=== PATIENT | female | born 1995 | race Caucasian/White ===

== ENCOUNTER → 2020-05-26 11:34 | Outpatient (POV) | payer BC, SELFPAY | PROVIDERS: PCP Family Medicine; Visit Provider Otolaryngology | DX: Z00.00 Encounter for general adult medical examination without abnormal findings (principal) ==

== ENCOUNTER 2020-06-28 19:43 | Emergency (ER) | payer BC, MEDICAID, SELFPAY ==
--- NOTE | 2020-06-28 19:50 | ECG_ITS ---
APPROVED REPORT Exam: Resting ECG HR:105 bpm ECG Measurements Heart Rate 105 AXES ND 122 P 52 QRSd 90 QRS 30 QT 344 T 24 QTc 454 <Conclusion> Sinus tachycardia Otherwise normal ECG Electronically signed by : Sixto Young, 06/29/2020 06:13:35
[2020-06-28 19:57] VITALS: BP 134/86; PULSE 106; RESP 16; TEMP 37; O2SAT 100; BMI 35.6
[2020-06-28 20:00] VITALS: BP 132/91; PULSE 110; RESP 18; O2SAT 100
--- NOTE | 2020-06-28 20:12 | XR_ITS ---
PROCEDURE: XR CHEST 2V CLINICAL HISTORY: SOA Shortness of air postop COMPARISON: CT CT ANGIO CHEST from 06/28/2020 FINDINGS: The cardiomediastinal silhouette and pulmonary vascularity are within normal limits. No lobar consolidation or collapse. No effusions. There is a 14 mm nodule in the superior segment of the right lower lobe.. No acute bony abnormalities. IMPRESSION: 14 mm nodule superior segment lower lobe which contains a small focus of calcification on the previous CT scan consistent with a granuloma. No acute finding Dictated by: Ulises Mclaughlin MD 06/29/2020 05:31 Ulises Mclaughlin MD in [place] 06/29/2020 05:31
--- NOTE | 2020-06-28 20:16 | CT_ITS ---
PROCEDURE: CT ANGIO CHEST CLINCIAL INDICATION: Post op SOA Postop shortness of air COMPARISON: No exams were available for comparison TECHNIQUE: IV Contrast: 70ML OPTIRAY 350 Axial images obtained with sagittal and coronal reformats. All CT scans at the facility use one or more dose reduction, viz: automated exposure control, ma/kV adjustment per patient size (including targeted exams where dose is matched to indication, i.e. head), or iterative reconstruction technique. FINDINGS: HEART AND MEDIASTINAL STRUCTURES: No evidence of pulmonary embolus aortic aneurysm or dissection. No mediastinal or hilar mass or adenopathy. LUNGS AND PLEURAL SPACES: There is a cluster nodular lesions in the superior segment of the right lower lobe. These measure to 2 x 0.9 cm. The large nodule does contain some location. There are some small peripheral satellite nodules. No lobar consolidation or collapse. There is a 3 mm noncalcified nodule in the left lower lobe laterally image 72 series 3 a 2 mm noncalcified nodules present in the left lower lobe laterally image 60 series 3 BONY STRUCTURES: No acute bony abnormalities apparent. UPPER ABDOMEN: Fatty liver ADDITIONAL FINDINGS: No other significant abnormalities. IMPRESSION: 1. No acute finding. No evidence of pulmonary embolus. 2. Multiple pulmonary nodular opacities which may be secondary to old granulomatous disease. At least 1 nodule does contain some calcification. Other smaller noncalcified nodules are also present and could be due to granulomas. Follow-up may confirm stability Dictated by: Ulises Mclaughlin MD 06/29/2020 06:26 Ulises Mclaughlin MD in [facility] 06/29/2020 06:26
[2020-06-28 20:24] LABS: Microscopic, Urine URINE MICROSCOPIC (MICROSCOPIC)
[2020-06-28 20:32] LABS: Chloride 105 mmol/L (98-107); Potassium 4.1 mmoL/L (3.5-5.1); Sodium 137 mmol/L (136-145)
[2020-06-28 20:33] LABS: Basophils % 0.2 % (0.1-2.0); Eosinophils # 0.1 K/mm3 (0.0-0.4); Eosinophils % 1.2 % (0.1-12.0); Hematocrit 36.4 % (37.0-47.0); Hemoglobin 12.5 g/dL (12.2-16.2); Lymphocytes # 2.3 K/mm3 (0.7-4.5); Lymphocytes % 21.7 % (10-50); Mean Corpuscular HGB Conc 34.4 g/dL (31.8-35.4); Mean Corpuscular Hemoglobin 27.2 pg (27.0-31.2); Mean Corpuscular Volume 79.2 fl (81-99); Mean Platelet Volume 7.2 fl (7.4-10.4); Monocytes # 0.5 K/mm3 (0.1-1.0); Monocytes % 4.5 % (1.7-9.3); Neutrophils # 7.6 K/mm3 (1.8-7.8); Neutrophils % 72.4 % (37.0-80.0); Platelet Count 214 K/mm3 (142-424); Red Cell Distribution Width 14.6 % (11.5-17.5); White Blood Count 10.5 K/mm3 (4.8-10.8)
[2020-06-28 20:35] LABS: Alanine Aminotransferase 25 U/L (12-78); Albumin/Globulin Ratio 1.3 (1.1-1.8); Alkaline Phosphatase 82 U/L (38-126); Anion Gap 11.1 mEq/L (5-15); Appearance,Urine CLEAR (Clear); Aspartate Amino Transferase 33 U/L (14-36); Bilirubin,Total 0.4 mg/dl (0.2-1.3); Bilirubin,Urine Negative (Negative); Blood Urea Nitrogen 7 mg/dl (7-17); Blood, Urine Negative (Negative); Carbon Dioxide 25 mmol/L (22.0-30.0); Color,Urine YELLOW (Yellow); Creatinine Clearance Estimated 204 mL/min (50-200); Estimated Glomerular Filt Rate 101 ml/min (>60); GFR (African American) 122 ML/MIN (>60); Globulin 3.1 g/dL (1.3-3.2); Glucose,Urine (UA) Negative (Negative); Ketones,Urine Negative (Negative); Leukocyte Esterase,Urine TRACE (Negative); Nitrate,Urine Negative (Negative); Protein,Urine Negative (Negative); Total Protein,Serum 7.1 g/dl (6.3-8.2)
[2020-06-28 20:36] LABS: Glucose 109 mg/dl (74-100)
--- NOTE | 2020-06-28 20:36 | HMH.EDSOB ---
ED Disposition Clinical Impression: Acute dyspnea Disposition: Home, Self-Care Condition on Discharge: Good Instructions: DI for Shortness of Breath Additional Instructions: call pcp for follow up Referrals: Nadia Goodson [Primary Care Provider] - - Critical Care Critical Care Time: No Attestation: On 06/28/20, the high probability of a clinically significant, sudden or life threatening deterioration of the following system(s) required my full and direct attention, intervention and personal management. The time I documented below is in addition to time spent performing reported procedures but includes the following listed in this critical care notation. Medical Decision Making - Medical Records Medical records reviewed: Yes: I reviewed the patient's medical records. - Trevor Inquiry Pt receiving controlled substance: No Vital Signs: 06/28/20 19:57 06/28/20 20:00 Temperature 98.6 F Temperature Source Oral Pulse Rate [Right] 106 H 110 H Respiratory Rate 16 18 Blood Pressure [Right Arm] 134/86 132/91 H Blood Pressure Mean [Right Arm] 102 104 Blood Pressure Source [Right Arm] Automatic Cuff Automatic Cuff Blood Pressure Position [Right Arm] Sitting Supine 02 Sat by Pulse Oximetry 100 100 Oxygen Delivery Method Room Air Room Air - Lab Data Lab results reviewed: Yes: I reviewed the patient's lab results. Lab Results 06/28/20 20:15: Urine Color Yellow, Urine Appearance Clear, Urine pH 7.0, Ur Specific [place] 1.010, Urine Protein Negative, Urine Glucose (UA) Negative, Urine Ketones Negative, Urine Blood Negative, Urine Nitrate Negative, Urine Bilirubin Negative, Urine Urobilinogen 1.0, Ur Leukocyte Esterase Trace, Urine WBC Occasional, Ur Squamous Epith Cells Occasional, Urine Bacteria Trace 06/28/20 20:15: WBC 10.5, RBC 4.60, Hgb 12.5, Hct 36.4 L, MCV 79.2 L, MCH 27.2, MCHC 34.4, RDW 14.6, Plt Count 214, MPV 7.2 L, Neut % (Auto) 72.4, Lymph % (Auto) 21.7, [place] % (Auto) 4.5, Eos % (Auto) 1.2, Baso % (Auto) 0.2, Neut # (Auto) 7.6, Lymph # (Auto) 2.3, [place] # (Auto) 0.5, Eos # (Auto) 0.1, Baso # (Auto) 0.0 06/28/20 20:15: Sodium 137, Potassium 4.1, Chloride 105, Carbon Dioxide 25, Anion Gap 11.1, BUN 7, Creatinine 0.70, Estimated Creat Clear 204, Estimated GFR 101, Est GFR ( Amer) 122, Glucose 109 H, Calcium 9.0, Total Bilirubin 0.4, AST 33, ALT 25, Alkaline Phosphatase 82, Total Protein 7.1, Albumin 4.0, Globulin 3.1, Albumin/Globulin Ratio 1.3 Result diagrams: 06/28/20 20:15 06/28/20 20:15 Orders (Tests/Meds): ED MEDICATIONS Generic Name Dose Route Start Last Admin Trade Name Freq PRN Reason Stop Dose Admin Sodium Chloride 1,000 mls @ 999 mls/hr 06/28/20 20:30 06/28/20 20:50 Sod Chlor 0.9% 1000ml Bag IV 06/28/20 21:30 999 mls/hr .Q1H1M BRANDON Administration Discontinued Medications Generic Name Dose Route Start Last Admin Trade Name Freq PRN Reason Stop Dose Admin Ioversol 75 ml 06/28/20 22:01 06/28/20 22:02 Rad-Optiray 350 100ml Vial IV 06/28/20 22:02 75 ml ONCE ONE Administration Protocol Methylprednisolone Sodium Succinate 125 mg 06/28/20 20:17 06/28/20 20:50 Solu-Medrol 125mg/2ml Vial IV 06/28/20 20:18 125 mg ONCE ONE Administration Sodium Chloride 10 ml 06/28/20 22:01 06/28/20 22:02 Rad-Saline Flush 10ml Syringe IV 06/28/20 22:02 10 ml ONCE ONE Administration Sodium Chloride 50 ml 06/28/20 22:02 Rad-Ns 50ml Vial IV 06/28/20 22:03 ONCE ONE Sodium Chloride 40 ml 06/28/20 22:04 06/28/20 22:04 Rad-Ns 50ml Vial IV 06/28/20 22:05 40 ml ONCE ONE Administration ORDERS Category Date Time Status CT Chest w/PE protocol [CT angio chest] Stat Cat Scan 06/28/20 20:16 Taken Chest XR 2 view (NOT portable) [XR chest 2V] Stat Exams 06/28/20 20:12 Taken - Radiology Data #1 Image(s): Chest Image Reviewed: Yes I reviewed the patient's radiology image Preliminary Findings: Normal/NAD - CT Data CT Scan: Ch
[2020-06-28 20:51] LABS: Bacteria,Urine Trace /lpf; Squamous Epithelial Cell,Urine Occasional #/hpf (0-5); WBC,Urine Occasional #/hpf (0-3)
[2020-06-28 22:28] VITALS: BP 129/68; PULSE 90; RESP 16; TEMP 37; O2SAT 100
== END 2020-06-28 22:32 | disposition home or self-care (01) ==
PROVIDERS: Emergency Medicine; Emergency Provider Emergency Medicine; PCP Family Medicine
DX: R06.09 Other forms of dyspnea (principal); R10.30 Lower abdominal pain, unspecified; E11.9 Type 2 diabetes mellitus without complications; Z79.84 Long term (current) use of oral hypoglycemic drugs; Z88.1 Allergy status to other antibiotic agents
CPT/HCPCS: 71046; 71275; 80053; 81001; 85025; 93005; 96365; 96375; 99283; Q9967

== ENCOUNTER → 2021-07-30 15:24 | Outpatient (CLI) | payer BC, SELFPAY ==
--- NOTE | 2021-07-30 15:24 | US_ITS ---
PROCEDURE: US TRANSVAGINAL CLINICAL INDICATION: DUB COMPARISON: No exams were available for comparison FINDINGS: UTERUS: 7cm x 5cmx 4cm with a combined endometrial thickness of 11.3mm. No uterine mass demonstrated LEFT OVARY: [id number] with a volume of 11.4ml. RIGHT OVARY: [id number] with a volume of 26ml. The ovaries have a polycystic appearance with numerous small follicles involving both ovaries. No cul-de-sac fluid evident. IMPRESSION: Endometrial thickness is upper limits of normal. Poly cystic appearance of the ovaries. Dictated by: Ulises Mclaughlin MD 07/30/2021 16:23 Ulises Mclaughlin MD in OV 07/30/2021 16:23
== END ==
PROVIDERS: PCP Family Medicine; Visit Provider Obstetrics & Gynecology
DX: N93.8 Other specified abnormal uterine and vaginal bleeding (principal)
CPT/HCPCS: 76830

== ENCOUNTER 2021-09-09 19:49 | Emergency (ER) | payer BC, SELFPAY ==
[2021-09-09 20:15] VITALS: BP 143/101; PULSE 124; RESP 19; TEMP 36.4; O2SAT 100; BMI 36.2
--- NOTE | 2021-09-09 20:41 | HMH.EDNVD ---
ED Disposition Clinical Impression: Gastroenteritis Disposition: Home, Self-Care Condition on Discharge: Good Instructions: DI for Acute Abdominal Pain Additional Instructions: call pcp in am Referrals: Nadia Goodson [Primary Care Provider] - - Critical Care Critical Care Time: No Attestation: On 09/09/21, the high probability of a clinically significant, sudden or life threatening deterioration of the following system(s) required my full and direct attention, intervention and personal management. The time I documented below is in addition to time spent performing reported procedures but includes the following listed in this critical care notation. Medical Decision Making - Medical Records Medical records reviewed: Yes: I reviewed the patient's medical records. - Trevor Inquiry Pt receiving controlled substance: No Vital Signs: 09/09/21 20:15 Temperature 97.6 F Temperature Source Oral Pulse Rate [Right] 124 H Respiratory Rate 19 Blood Pressure [Right Arm] 143/101 H Blood Pressure Mean [Right Arm] 115 Blood Pressure Source [Right Arm] Automatic Cuff 02 Sat by Pulse Oximetry 100 Oxygen Delivery Method Room Air - Lab Data Lab results reviewed: Yes: I reviewed the patient's lab results. Lab Results 09/09/21 20:30: Stl Aeromonas (PCR) Not detected, Stl C. cayetanensis PCR Not detected, Stool Rotavirus (PCR) Not detected, Stl Adenov F 40/41 PCR Not detected, Stool Astrovirus (PCR) Not detected, Stool Campylobacter PCR Not detected, Stl C.difficile Tox PCR Not detected, Stool Cryptosporidium PCR Not detected, Stl E.coli Shiga Tox PCR Not detected, Stool E coli O157 PCR Not detected, Stl Enterotoxigenic E PCR Not detected, Stool EPEC (PCR) Not detected, Stool EAEC (PCR) Not detected, Stl E. histolytica PCR Not detected, Stool Giardia Lamblia PCR Not detected, Stool Salmonella PCR Not detected, Stool Sapovirus (PCR) Not detected, Stl P. shigelloides PCR Not detected, Stl Shigella/EIEC PCR Not detected, St Y.enterocolitica PCR Not detected, Stool Vibrio (PCR) Not detected, Stl Vibrio cholerae PCR Not detected, Stl Norovirus GI/GII PCR Not detected 09/09/21 20:45: WBC 12.7 H, RBC 5.52 H, Hgb 14.2, Hct 44.3, MCV 80.2 L, MCH 25.8 L, MCHC 32.1, RDW 13.6, Plt Count 413, MPV 7.6, Neut % (Auto) 80.2 H, Lymph % (Auto) 13.3, [place] % (Auto) 4.0, Eos % (Auto) 2.1, Baso % (Auto) 0.5, Neut # (Auto) 10.2 H, Lymph # (Auto) 1.7, [place] # (Auto) 0.5, Eos # (Auto) 0.3, Baso # (Auto) 0.1, ESR 7 09/09/21 20:45: Sodium 142, Potassium 3.9, Chloride 104, Carbon Dioxide 22, Anion Gap 19.9 H, BUN 9, Creatinine 0.80, Estimated Creat Clear 163, Estimated GFR 85, Est GFR ( Amer) 103, Glucose 100, Calcium 9.9, Total Bilirubin 0.7, AST 38 H, ALT 30, Alkaline Phosphatase 118, C-Reactive Protein 13.8 H, Total Protein 8.6 H, Albumin 5.1 H, Globulin 3.5 H, Albumin/Globulin Ratio 1.5, Amylase 101, Lipase 98, Procalcitonin 0.079, TSH 0.59, Thyroxine (T4) 15.5 H 09/09/21 20:51: Urine Color Red, Urine Appearance Cloudy, Urine pH 5.0, Ur Specific [place] >= 1.030, Urine Protein Negative, Urine Glucose (UA) Trace, Urine Ketones Trace, Urine Blood 3+, Urine Nitrate Negative, Urine Bilirubin Negative, Urine Urobilinogen 1.0, Ur Leukocyte Esterase Trace, Urine RBC 20-50, Urine WBC 5-10, Ur Squamous Epith Cells Occasional, Urine Bacteria 1+ 09/09/21 20:51: Urine HCG, Qual Negative Result diagrams: 09/09/21 20:45 09/09/21 20:45 Orders (Tests/Meds): ED MEDICATIONS Generic Name Dose Route Start Last Admin Trade Name Freq PRN Reason Stop Dose Admin Sodium Chloride 1,000 mls @ 999 mls/hr 09/09/21 20:45 09/09/21 20:54 Sod Chlor 0.9% 1000ml Bag IV 09/09/21 21:45 999 mls/hr .Q1H1M BRANDON Administration Sodium Chloride 1,000 mls @ 999 mls/hr 09/09/21 22:00 09/09/21 21:56 Sod Chlor 0.9% 1000ml Bag IV 09/09/21 23:00 999 mls/hr .Q1H1M BRANDON Administration Sodium Chloride 8 ml 09/09/21 20:44 Sodium Chloride 0.9% 10ml Vial IV 10/09/21 20:43
--- NOTE | 2021-09-09 20:43 | CT_ITS ---
PROCEDURE INFORMATION: Exam: CT Abdomen And Pelvis With Contrast Exam date and time: 09/09/2021 8:43 PM Age: 26 years old Clinical indication: Nausea and vomiting and other: Diarrhea; Abdominal pain; Localized; Upper; Prior surgery; Surgery date: 6+ months; Surgery type: Ovarian cyst removed, choleycystectomy, mirena iud device placed. ; Additional info: Upper abd pain with n/v/d TECHNIQUE: Imaging protocol: Computed tomography of the abdomen and pelvis with contrast. Radiation optimization: All CT scans at this facility use at least one of these dose optimization techniques: automated exposure control; mA and/or kV adjustment per patient size (includes targeted exams where dose is matched to clinical indication); or iterative reconstruction. Contrast material: ISOVUE; Contrast volume: 70 ml; Contrast route: IV; COMPARISON: US TRANSVAGINAL 07/30/2021 3:53 PM FINDINGS: Lungs: A nodule in the right lower lobe contains a calcification and is probably benign. Two 3 mm nodules are seen in the left base. Liver: A 10 mm hypodensity in the hepatic dome is most likely a cyst. Gallbladder and bile ducts: Normal. No calcified stones. No ductal dilation. Pancreas: Normal. No ductal dilation. Spleen: Normal. No splenomegaly. Adrenal glands: Normal. No mass. Kidneys and ureters: A few tiny renal hypodensities are too small to further characterize, but most likely cysts. Stomach and bowel: Fluid in the colon compatible with diarrhea. Appendix: No evidence of appendicitis. Intraperitoneal space: Unremarkable. No free air. No significant fluid collection. Vasculature: Unremarkable. No abdominal aortic aneurysm. Lymph nodes: Unremarkable. No enlarged lymph nodes. Urinary bladder: Unremarkable as visualized. Reproductive: IUD in good position. Bones/joints: Unremarkable. No acute fracture. Soft tissues: Unremarkable. IMPRESSION: Fluid in the colon compatible with diarrhea. No obstruction. COMMENTS: Consistent with the [place] [employer]'s Incidental Findings Committee white paper (J Am Anabella Radiol 2018): Any incidental renal lesion less than 1 cm or classified as too small to characterize, or any incidental cystic renal lesion characterized as simple-appearing, is likely benign. No follow-up imaging is recommended for these lesions per consensus recommendations based on imaging criteria.
[2021-09-09 20:54] LABS: Microscopic, Urine URINE MICROSCOPIC (MICROSCOPIC)
[2021-09-09 20:56] LABS: Appearance,Urine CLOUDY (Clear); Bilirubin,Urine Negative (Negative); Blood, Urine 3+ (Negative); Color,Urine RED (Yellow); Glucose,Urine (UA) TRACE (Negative); Ketones,Urine TRACE (Negative); Leukocyte Esterase,Urine TRACE (Negative); Nitrate,Urine Negative (Negative); Protein,Urine Negative (Negative); Specific Gravity, Urine >= 1.030 (1.005-1.030)
[2021-09-09 20:58] LABS: Urine Pregnancy, HCG Qual. Negative (Negative)
[2021-09-09 21:01] LABS: Bacteria,Urine 1+ /lpf; RBC,Urine 20-50 #/hpf (0-3); Squamous Epithelial Cell,Urine Occasional #/hpf (0-5)
[2021-09-09 21:08] LABS: Basophils # 0.1 K/mm3 (0-0.2); Basophils % 0.5 % (0.1-2.0); Eosinophils # 0.3 K/mm3 (0.0-0.4); Eosinophils % 2.1 % (0.1-12.0); Hematocrit 44.3 % (37.0-47.0); Hemoglobin 14.2 g/dL (12.2-16.2); Lymphocytes # 1.7 K/mm3 (0.7-4.5); Lymphocytes % 13.3 % (10-50); Mean Corpuscular HGB Conc 32.1 g/dL (31.8-35.4); Mean Corpuscular Hemoglobin 25.8 pg (27.0-31.2); Mean Corpuscular Volume 80.2 fl (81-99); Mean Platelet Volume 7.6 fl (7.4-10.4); Monocytes # 0.5 K/mm3 (0.1-1.0); Neutrophils # 10.2 K/mm3 (1.8-7.8); Neutrophils % 80.2 % (37.0-80.0); Platelet Count 413 K/mm3 (142-424); Red Blood Count 5.52 M/mm3 (4.20-5.40); Red Cell Distribution Width 13.6 % (11.5-17.5); White Blood Count 12.7 K/mm3 (4.8-10.8)
[2021-09-09 21:10] LABS: Adenovirus F 40/41, stool Not Detected (NotDetected); Astrovirus Not Detected (NotDetected); Campylobacter Not Detected (NotDetected); Clostridium Difficile A/B, PCR Not Detected (NotDetected); Cryptosporidium Not Detected (NotDetected); Cyclospora Cayetanesis Not Detected (NotDetected); Entamoeba histolytica Not Detected (NotDetected); Enteroaggregative E coli Not Detected (NotDetected); Enteropathogenic E coli Not Detected (NotDetected); Enterotoxigenic E coli Not Detected (NotDetected); Giardia lamblia Not Detected (NotDetected); Norovirus Not Detected (NotDetected); Plesimonas Shigalloides, PCR Not Detected (NotDetected); Rotavirus A Not Detected (NotDetected); Salmonella, PCR Not Detected (NotDetected); Sapovirus Not Detected (NotDetected); Shiga-like toxin E coli Not Detected (NotDetected); Shigella Enterovasive E coli Not Detected (NotDetected); Vibrio Cholerae Not Detected (NotDetected); Vibrio, PCR Not Detected (NotDetected); Yersinia Entercolitica, PCR Not Detected (NotDetected)
[2021-09-09 21:14] LABS: Alanine Aminotransferase 30 U/L (12-78); Albumin Level 5.1 g/dl (3.5-5.0); Albumin/Globulin Ratio 1.5 (1.1-1.8); Alkaline Phosphatase 118 U/L (38-126); Amylase 101 U/L (30-110); Anion Gap 19.9 mEq/L (5-15); Aspartate Amino Transferase 38 U/L (14-36); Bilirubin,Total 0.7 mg/dl (0.2-1.3); Blood Urea Nitrogen 9 mg/dl (7-17); Calcium 9.9 mg/dl (8.4-10.2); Carbon Dioxide 22 mmol/L (22.0-30.0); Chloride 104 mmol/L (98-107); Creatinine Clearance Estimated 163 mL/min (50-200); Estimated Glomerular Filt Rate 85 ml/min (>60); GFR (African American) 103 ML/MIN (>60); Globulin 3.5 g/dL (1.3-3.2); Glucose 100 mg/dl (74-100); Lipase 98 U/L (23-300); Potassium 3.9 mmoL/L (3.5-5.1); Sodium 142 mmol/L (136-145); Total Protein,Serum 8.6 g/dl (6.3-8.2)
--- NOTE | 2021-09-09 21:15 | PC.NURSE ---
Dr. Christine with pt
[2021-09-09 21:19] LABS: C-Reactive Protein 13.8 mg/L (0-4)
[2021-09-09 21:33] LABS: Procalcitonin 0.079 ng/mL (0.0-2.0); T4 (Thyroxine) 15.5 ug/dl (5.53-11.0)
[2021-09-09 21:45] LABS: Erythrocyte Sedimentation Rate 7 mm/hr (0-20)
[2021-09-09 21:47] LABS: Thyroid Stimulating Hormone 0.59 uIU/mL (0.465-4.68)
--- NOTE | 2021-09-09 21:56 | PC.NURSE ---
Dr. Christine s/w pt regarding lab work
[2021-09-09 23:17] VITALS: BP 134/78; PULSE 100; RESP 16; TEMP 36.4; O2SAT 99
== END 2021-09-09 23:18 | disposition home or self-care (01) ==
PROVIDERS: Emergency Provider Emergency Medicine; PCP Family Medicine
DX: K52.9 Noninfective gastroenteritis and colitis, unspecified (principal)
CPT/HCPCS: 74177; 80053; 81001; 81025; 82150; 83690; 84145; 84436; 84443; 85025; 85651; 86140; 87507; 96365; 96375; 99283; J2405; Q9967

== ENCOUNTER 2022-03-01 11:22 | Emergency (ER) | payer BC, SELFPAY ==
--- NOTE | 2022-03-01 11:31 | XR_ITS ---
FINAL REPORT CLINICAL HISTORY: PAIN around first two toes FINDINGS: 3 views of the right foot were obtained. There is an ossific protuberance from the medial aspect of the 1st distal phalanx that may represent a small exostosis. There is no acute fracture or dislocation. The joint spaces are intact. The soft tissues are unremarkable. IMPRESSION: No acute process. Reviewed, Interpreted and Dictated by Kole Flanagan MD Transcribed by John Ramirez Authenticated by Kole Flanagan MD on 03/01/2022 12:50:[address] [facility]
[2022-03-01 11:52] VITALS: BP 126/79; PULSE 83; RESP 19; TEMP 36.6; O2SAT 98; BMI 37.8
--- NOTE | 2022-03-01 12:20 | HMH.EDUTC ---
[facility] Disposition Clinical Impression: Foot sprain Qualifiers: Encounter type: initial encounter Laterality: right Qualified Code(s): S93.601A - Unspecified sprain of right foot, initial encounter Disposition: Home, Self-Care Condition on Discharge: Good Instructions: How To Perform RICE (Rest, Ice, Compress, Elevate), DI for Foot Sprain Additional Instructions: *weight bearing as tolerated *RICE, Rest the extremity, Ice 15-20 minutes 3-4 times daily, Compress- wear the erickson wrap as discussed as much as possible to help reduce swelling and pain, Elevate the extremity when at rest *Erickson wrap is for support and help control swelling, use it except in the shower. Be sure that is not to tight but not to loose either *Elevate when resting *Ibuprofen as prescribed on package every 6-8 hours as needed for pain an inflammation. If need something more can take Tylenol in between doses of Ibuprofen to help Immediately follow up with your family doctor for new or worsening of symptoms, or no noticeable improvement over the next 3-5 days Referrals: Nadia Goodson [Primary Care Provider] - As needed Time of Disposition: 12:26 Medical Decision Making - Trevor Inquiry Pt receiving controlled substance: No Trevor was queried for this patient: No Vital Signs: 03/01/22 11:52 Temperature 97.9 F Temperature Source Oral Pulse Rate [Left] 83 Respiratory Rate 19 Blood Pressure [Right Arm] 126/79 Blood Pressure Mean [Right Arm] 94 02 Sat by Pulse Oximetry 98 Orders (Tests/Meds): ORDERS Category Date Time Status XR foot RT min 3V Stat Exams 03/01/22 11:31 Taken - Radiology Data #1 Image(s): Foot/Toes Image Reviewed: Yes I reviewed the patient's radiology image Preliminary Findings: No Fracture Seen [facility] HPI - General Stated complaint: AO rt foot pain Time Seen by Provider: 03/01/22 12:20 Mode of Arrival: Ambulatory Source of Information: Patient Description of Symptoms (Recalled from Triage Doc. by RN): [place] the [place] and she went to catch someone who was falling from a seizure and person landed on her foot. she thinks it may be broken HEENT Symptoms (Recalled from RN notes): No Resp Symptoms (Recalled from RN notes): No Skin Symptoms (Recalled from RN notes): No MS Symptoms (Recalled from RN notes): Yes Functional Status (Recalled from RN notes): wnl - History of Present Illness Provider Complaint: Patient states that she was at the mall yesterday when someone went to fall having a seizure and she tried to catch them and her foot got tangled up States that she is having pain around the base of toes from her second toe over States that today she came in to get it checked to see if they may be broken - Related Data Home Medications Medication Instructions Recorded Confirmed Metformin HCl [Metformin HCl ER] 1,500 mg PO HS 06/28/20 09/09/21 levothyroxine 75 mcg tablet 75 mcg PO DAILY 07/27/21 09/09/21 liraglutide (weight loss) 3 mg/0.5 3 mg SQ DAILY 07/27/21 09/09/21 mL (18 mg/3 mL) subcut pen injector norgestrel-ethinyl estradioL 1 tab PO DIRECTED 09/09/21 09/09/21 [Cryselle-28 Tablet] Allergies Allergy/AdvReac Type Severity Reaction Status Date / Time amoxicillin Allergy Verified 03/01/22 11:56 hydrocodone Allergy Verified 03/01/22 11:56 - Worker's Comp Is this a Worker's Comp case?: No Is this an [facility] Worker's Comp?: No Is this a [facility] Worker's Comp?: No H History - Hepatitis A Screen Drug use history?: No High risk sexual behaviors?: No History of sexually transmitted infection?: No Currently employed?: No Childcare worker?: No Do you have indoor plumbing?: Yes Do you have electricity?: Yes Attestation statement:: This patient has been screened for Hepatitis A risk factors. I have reviewed the patient's past medical history: Yes Medical History: Denies:: Diabetes Mellitus Type 1, Diabetes Mellitus Type 2 Comment: PCOS. uterine fibroids Laterality Cases
[2022-03-01 12:31] VITALS: BP 126/79; PULSE 83; RESP 19; TEMP 36.6
== END 2022-03-01 12:39 | disposition home or self-care (01) ==
PROVIDERS: Emergency Provider Nurse Practitioner; PCP Family Medicine
DX: S93.601A Unspecified sprain of right foot, initial encounter (principal); N83.209 Unspecified ovarian cyst, unspecified side; Z79.84 Long term (current) use of oral hypoglycemic drugs; Z79.899 Other long term (current) drug therapy; Z88.0 Allergy status to penicillin; Z88.1 Allergy status to other antibiotic agents; Z88.3 Allergy status to other anti-infective agents; Z88.5 Allergy status to narcotic agent; Z88.6 Allergy status to analgesic agent; Z82.49 Family history of ischemic heart disease and other diseases of the circulatory system; Z83.438 Family history of other disorder of lipoprotein metabolism and other lipidemia; Z82.5 Family history of asthma and other chronic lower respiratory diseases; Z84.1 Family history of disorders of kidney and ureter; Z83.2 Family history of diseases of the blood and blood-forming organs and certain disorders involving the immune mechanism
CPT/HCPCS: 73630; 99212; G0463

== ENCOUNTER 2024-02-17 02:32 | Emergency (ER) | payer BC, SELFPAY ==
[2024-02-17 02:47] VITALS: BP 127/83; PULSE 137; RESP 20; TEMP 37.2; O2SAT 97; BMI 26.9
--- NOTE | 2024-02-17 02:56 | CT_ITS ---
PROCEDURE INFORMATION: Exam: CT Abdomen And Pelvis With Contrast Exam date and time: 02/17/2024 3:21 AM Age: 28 years old Clinical indication: Abdominal pain; Flank; Other: Bilateral; Additional info: Bilat flank pain, fever, 6 weeks TECHNIQUE: Imaging protocol: Computed tomography of the abdomen and pelvis with contrast. Radiation optimization: All CT scans at this facility use at least one of these dose optimization techniques: automated exposure control; mA and/or kV adjustment per patient size (includes targeted exams where dose is matched to clinical indication); or iterative reconstruction. Contrast material: ISOVUE; Contrast volume: 75 ml; Contrast route: IV; COMPARISON: CT ABDOMEN PELVIS W CON 09/09/2021 9:38 PM FINDINGS: Liver: Normal. No mass. Gallbladder and bile ducts: Prior cholecystectomy. Pancreas: Normal. No ductal dilation. Spleen: Normal. No splenomegaly. Adrenal glands: Normal. No mass. Kidneys and ureters: There is an indeterminate 1.5 x 1.3 x 1.8 cm hypodense area in the midpole of the left kidney. Stomach and bowel: Prior gastric surgery. Appendix: No evidence of appendicitis. Intraperitoneal space: Unremarkable. No free air. No significant fluid collection. Vasculature: Unremarkable. No abdominal aortic aneurysm. Lymph nodes: Unremarkable. No enlarged lymph nodes. Urinary bladder: Unremarkable as visualized. Reproductive: Unremarkable as visualized. Bones/joints: This extends through the cortex. There is a simple cyst in the lower pole on the right. Soft tissues: Unremarkable. IMPRESSION: 1. No acute process noted to explain the patient's pain. No renal stone or obstruction present. 2. Indeterminate 1.8 cm hypodensity midpole left kidney new since prior exam. Consider renal ultrasound or dedicated MRI for further characterization.
--- NOTE | 2024-02-17 02:57 | HMH.EDGENADL ---
Discharge Plan Disposition Patient Disposition: Home, Self-Care Prescriptions Prescriptions: New sulfamethoxazole-trimethoprim 800-160 mg tablet 1 tab PO BID 10 Days Qty: 20 0RF No Action levothyroxine [Synthroid] 75 mcg tablet 75 mcg PO DAILY Referrals Follow up/Referrals: Nadia Goodson [Primary Care Provider] - See instructions Activity Restrictions/Add. Instructions Additional Instructions/Restrictions: Please follow-up with your primary care provider. Please return to the emergency department if you develop any new or worsening symptoms or become concerned for your health. Please take antibiotics as prescribed for treatment of kidney infection. Recommend following up with your PCP for reassessment given there was an abnormality noted on the CT scan of your left kidney. If you change your mind, or continue to get more sick, please return immediately to the emergency department. Recommend supplementing with formula and pumping and dumping while you are on antibiotics. Clinical Impressions Clinical Impression: Pyelonephritis Instructions Patient Instructions: DI for Kidney Infection Discharge ED Provider: Flavio Nguyen General Adult HPI General Chief complaint: PAIN Stated complaint: right side pain, fever Time Seen by Provider: 02/17/24 02:45 Mode of Arrival: Ambulatory Source of Information: Patient Limitations: No Limitations Description of Symptoms (Recalled from ER Triage Doc. by RN): Pt reports to ED with complaints of righ flank pain rating it a 6 out of 10, pt also has lower stomach pain rating it a 4 out of 10. Pt states this she has pressure when peeing. Pt states pain has been ongoing for 1 week. Pt states she was febrile at 104.2 at home but on assessment in ER she was 98.9. Pt states taking a dose of Tylenol at 0120. Pt is 6 weeks. History of Present Illness HPI narrative: 28-year-old female approximately 6 weeks presents with flank pain. She reports that she has had kidney stones in the past. She reports that she has been having intermittent flank pain and urinary pressure for the last several days and developed fever couple of days ago. She is currently breast-feeding. She has not restarted her menstrual cycle. Related Data Home Medications Medication Instructions Recorded Confirmed levothyroxine 75 mcg tablet 75 mcg PO DAILY hypothyroid 07/27/21 09/09/21 (Synthroid) Previous Rx's Medication Instructions Recorded sulfamethoxazole 800 1 tab PO BID 10 days #20 tabs 02/17/24 mg-trimethoprim 160 mg tablet Allergies Allergy/AdvReac Type Severity Reaction Status Date / Time amoxicillin Allergy Verified 03/01/22 11:56 hydrocodone Allergy Verified 03/01/22 11:56 [facility] Disclaimer: The information contained in this section may have been updated after the patient was seen, as this information can be updated by other users. Social History Smoking Status: Never smoker alcohol intake: never substance use type: denies use current occupational status: employed Travel in the last 8 weeks: None ROS Obtained: Yes All systems reviewed & no additional complaints except as documented Physical Exam General General appearance: alert and in no apparent distress Head Head exam: atraumatic and normocephalic Eye Eye exam: Present normal appearance, PERRL and EOMI ENT ENT exam: Present normal oropharynx and normal external ear exam Neck Neck exam: Present normal inspection and full ROM Chest Chest inspection: Present normal inspection and symmetric chest wall rise; Absent tenderness Respiratory Respiratory exam: Present normal lung sounds bilaterally; Absent respiratory distress Cardiovascular Cardiovascular exam: Present normal rhythm and tachycardia Abdominal Exam Abdominal exam: Present soft; Absent distention, tenderness or guarding Extremities Exam Extremities exam: Present normal inspection; Absent edema or joint swelling Back Exam Back exam: Present normal inspection, CVA tenderness (R) and CVA tenderness (L) Neurological Exam Neurological exam: Present alert and oriented X3; Absent motor sensory deficit Psychiatric Psychiatric exam: Present normal affect and normal mood Skin Skin exam: Present warm, dry and normal color Lymphatic Lymphatic Findings: no adenopathy Medical Decision Making Medical Records Medical records reviewed: Yes I reviewed the patient's medical records. Trevor Inquiry Pt receiving controlled substance: No Trevor was queried for this patient: No Vital Signs: 02/17/24 02:47 02/17/24 06:35 Temperature 98.9 F 99.7 F H Temperature Source Oral Pulse Rate 117 H Pulse Rate [Right Brachial] 137 H Respiratory Rate 20 24 Blood Pressure 132/91 H Blood Pressure [Right Arm] 127/83 Blood Pressure Mean [Right Arm] 97 Blood Pressure Source [Right Arm] Automatic Cuff Blood Pressure Position [Right Arm] Sitting 02 Sat by Pulse Oximetry 97 Oxygen Delivery Method Room Air Room Air Lab Data Lab results reviewed: Yes I reviewed the patient's lab results. Lab Results 02/17/24 02:38: Urine Color Yellow, Urine Appearance Turbid, Urine pH 6.5, Ur Specific [place] 1.015, Urine Protein 2+, Urine Glucose (UA) Negative, Urine Ketones Negative, Urine Blood 2+, Urine Nitrate Positive, Urine Bilirubin Negative, Urine Urobilinogen 0.2, Ur Leukocyte Esterase 2+ A, Urine RBC 10-20, Urine WBC 50-100, Ur Squamous Epith Cells 3-5, Urine Bacteria 2+, Urine HCG, Qual Negative 02/17/24 02:48: WBC 9.4, RBC 5.24, Hgb 12.4, Hct 38.9, MCV 74.3 L, MCH 23.7 L, MCHC 31.9, RDW 15.8, Plt Count 189, MPV 7.7, Neut % (Auto) 84.2 H, Lymph % (Auto) 9.9 L, [place] % (Auto) 4.8, Eos % (Auto) 0.5, Baso % (Auto) 0.6, Neut # (Auto) 7.9 H, Lymph # (Auto) 0.9, [place] # (Auto) 0.5, Eos # (Auto) 0.1, Baso # (Auto) 0.1, Sodium 139, Potassium 3.6, Chloride 106, Carbon Dioxide 27, Anion Gap 9.6, BUN 8, Creatinine 0.90, Estimated Creat Clear 106, Estimated GFR 74, Est GFR ( Amer) 89, Glucose 117 H, Calcium 9.2, Total Bilirubin 1.2, AST 29, ALT 24, Alkaline Phosphatase 91, Total Protein 7.8, Albumin 4.6, Globulin 3.2, Albumin/Globulin Ratio 1.4 02/17/24 02:48 02/17/24 02:48 Orders (Tests/Meds): ED MEDICATIONS Discontinued Medications Generic Name Dose Route Start Last Admin Trade Name Freq PRN Reason Stop Dose Admin Ceftriaxone Sodium 2 gm/ 100 mls @ 200 mls/hr 02/17/24 03:11 02/17/24 03:36 Sodium Chloride IV 02/17/24 03:40 200 mls/hr ONCE ONE Administration Sodium Chloride 1,000 mls @ 999 mls/hr 02/17/24 05:00 02/17/24 04:56 Sod Chlor 0.9% 1000ml Bag IV 02/17/24 06:00 999 mls/hr .Q1H1M BRANDON Administration Iopamidol 75 ml 02/17/24 03:26 02/17/24 03:27 Iopamidol-370 (76%);100ml Bottle IV 02/17/24 03:27 75 ml ONCE ONE Administration Sodium Chloride 10 ml 02/17/24 03:26 02/17/24 03:27 Sodium Chloride 0.9% 10ml Syr (Rad Only) IV 02/17/24 03:27 10 ml ONCE ONE Administration ORDERS Category Date Time Status CT abdomen pelvis w con Stat Cat Scan 02/17/24 02:56 Completed CBC w/Auto Diff [Complete Blood Count Auto Diff] Stat Lab 02/17/24 02:48 Completed CMP [Comprehensive Metabolic Panel] Stat Lab 02/17/24 02:48 Completed UA [Urinalysis and Microscopic] Stat Lab 02/17/24 02:38 Completed Urine , HCG Qual. Stat Lab 02/17/24 02:38 Completed Blood Culture Stat Micro 02/17/24 04:05 Received Urine Culture Stat Micro 02/17/24 02:38 Received Medical Decision Narrative: 28-year-old female with history of prior UTIs, prior kidney stones, 6 weeks after uncomplicated vaginal delivery presents with flank pain and fever for the last couple of days. History was obtained interactive discussion with patient. On arrival, patient is afebrile, tachycardic to 130, generally well-appearing, moving all extremities spontaneously. Full physical exam performed and significant for mild flank pain bilaterally Differential includes but is not limited to pyelonephritis, UTI, obstructive nephrolithiasis, cholecystitis, bowel pathology. Patient was given 1 L fluid bolus for symptomatic management and correction of underlying abnormalities. Declined any other medication interventions. Workup initiated including CBC CMP UA urine CT abdomen pelvis with IV contrast blood cultures urine culture On re-evaluation, patient remained stable. Tachycardia improved but remains present, patient 110 on my interpretation of secured entrance monitor. Laboratory workup independently interpreted by me and significant for no significant leukocytosis, normal renal function, urine consistent with infection with 50-100 WBCs, 10-20 RBCs, 2+ bacteria, nitrate positive. Patient was initiated on IV ceftriaxone 2 g for acute pyelonephritis. Imaging independently interpreted by me and significant for no obstructive renal process. Does show indeterminate 1.8 cm hypodensity in the midpole of the left kidney which is new from prior exam. No perinephric abscess noted. See radiology read for full review of final results. Given patient history, exam and workup, patient's presentation most likely represents acute pyelonephritis. I had repeated interactive discussion with patient regarding her presentation. Given she remains tachycardic despite fluid resuscitation, I recommended she be admitted for continued IV antibiotics for complicated pyelonephritis. Patient reports that she has her young children at home that she has to take care of and would prefer to go home. Patient was discharged in stable condition with prescription for Bactrim for treatment of complicated UTI. Recommended that she pump and dump her breast milk and supplement with formula at home. Return precautions given. Procedures Risk/Benefits of Procedure(s) Were Explained: Yes Critical Care Critical Care Time Critical Care Time: No
[2024-02-17 03:02] LABS: Microscopic, Urine URINE MICROSCOPIC (MICROSCOPIC)
[2024-02-17 03:05] LABS: Chloride 106 mmol/L (98-107); Potassium 3.6 mmoL/L (3.5-5.1); Sodium 139 mmol/L (136-145)
[2024-02-17 03:05] LABS: Appearance,Urine TURBID (Clear); Bilirubin,Urine Negative (Negative); Blood, Urine 2+ (Negative); Color,Urine YELLOW (Yellow); Glucose,Urine (UA) Negative (Negative); Ketones,Urine Negative (Negative); Leukocyte Esterase,Urine 2+ (Negative); Nitrate,Urine POSITIVE (Negative); PH,Urine 6.5 (5.0-8.5); Protein,Urine 2+ (Negative); Specific Gravity, Urine 1.015 (1.005-1.030); Urobilinogen,Urine 0.2 EU/dl (0.2)
[2024-02-17 03:07] LABS: Urine Pregnancy, HCG Qual. Negative (Negative)
[2024-02-17 03:08] LABS: Alanine Aminotransferase 24 U/L (12-78); Albumin Level 4.6 g/dl (3.5-5.0); Albumin/Globulin Ratio 1.4 (1.1-1.8); Alkaline Phosphatase 91 U/L (38-126); Anion Gap 9.6 mEq/L (5-15); Aspartate Amino Transferase 29 U/L (14-36); Bilirubin,Total 1.2 mg/dl (0.2-1.3); Blood Urea Nitrogen 8 mg/dl (7-17); Calcium 9.2 mg/dl (8.4-10.2); Carbon Dioxide 27 mmol/L (22.0-30.0); Creatinine Clearance Estimated 106 mL/min (50-200); Estimated Glomerular Filt Rate 74 ml/min (>60); GFR (African American) 89 ML/MIN (>60); Globulin 3.2 g/dL (1.3-3.2); Glucose 117 mg/dl (74-100); Total Protein,Serum 7.8 g/dl (6.3-8.2)
[2024-02-17 03:10] LABS: Basophils # 0.1 K/mm3 (0-0.2); Basophils % 0.6 % (0.1-2.0); Eosinophils # 0.1 K/mm3 (0.0-0.4); Eosinophils % 0.5 % (0.1-12.0); Hematocrit 38.9 % (37.0-47.0); Hemoglobin 12.4 g/dL (12.2-16.2); Lymphocytes # 0.9 K/mm3 (0.7-4.5); Lymphocytes % 9.9 % (10-50); Mean Corpuscular HGB Conc 31.9 g/dL (31.8-35.4); Mean Corpuscular Hemoglobin 23.7 pg (27.0-31.2); Mean Corpuscular Volume 74.3 fl (81-99); Mean Platelet Volume 7.7 fl (7.4-10.4); Monocytes # 0.5 K/mm3 (0.1-1.0); Monocytes % 4.8 % (1.7-9.3); Neutrophils # 7.9 K/mm3 (1.8-7.8); Neutrophils % 84.2 % (37.0-80.0); Platelet Count 189 K/mm3 (142-424); Red Blood Count 5.24 M/mm3 (4.20-5.40); Red Cell Distribution Width 15.8 % (11.5-17.5); White Blood Count 9.4 K/mm3 (4.8-10.8)
[2024-02-17] MEDS: SODIUM CHLORIDE 0.9% 10ML SYR (RAD ONLY) 10 ML IV (03:27)
[2024-02-17] MEDS: IOPAMIDOL-370 (76%);100ML BOTTLE 75 ML IV (03:27)
[2024-02-17 03:31] LABS: Bacteria,Urine 2+ /lpf; WBC,Urine 50-100 #/hpf (0-3)
[2024-02-17] MEDS: CEFTRIAXONE SODIUM 2 GM in 0.9 % SODIUM CHLORIDE 100 ML IV (03:36)
--- NOTE | 2024-02-17 04:20 | PC.NURSE ---
rounded on patient, patient stated she would like a blanket, blanket given, no other concerns stated
[2024-02-17] MEDS: 0.9 % SODIUM CHLORIDE 1000ML 1,000 ML 999 ML IV (04:56)
[2024-02-17 06:35] VITALS: BP 132/91; PULSE 117; RESP 24; TEMP 37.6; O2SAT 99
--- NOTE | 2024-02-21 | PC.NURSE ---
notified dr zuleta of urine culture no new orders pt was discharged with bactim Ds
== END 2024-02-17 06:49 | disposition home or self-care (01) ==
PROVIDERS: Emergency Provider Emergency Medicine; PCP Family Medicine
DX: N10 Acute pyelonephritis (principal); B96.29 Other Escherichia coli [E. coli] as the cause of diseases classified elsewhere; R00.0 Tachycardia, unspecified
CPT/HCPCS: 74177; 80053; 81001; 81025; 85025; 87040; 87086; 96361; 96365; 99284; J0696; Q9967

== ENCOUNTER 2024-07-02 15:52 | Emergency (ER) | payer BC, SELFPAY ==
--- NOTE | 2024-07-02 15:55 | XR_ITS ---
PROCEDURE INFORMATION: Exam: XR Right Ankle Exam date and time: 07/02/2024 4:12 PM Age: 28 years old Clinical indication: Pain; Ankle; Right TECHNIQUE: Imaging protocol: Radiologic exam of the right ankle. Views: 3 or more views. COMPARISON: CR XR FOOT RT MIN 3V 03/01/2022 11:30 AM FINDINGS: Bones/joints: Normal. Soft tissues: Normal. IMPRESSION: No acute findings.
[2024-07-02 16:45] VITALS: BP 118/82; PULSE 80; RESP 17; TEMP 36.7; O2SAT 99; BMI 27.0
--- NOTE | 2024-07-02 17:04 | EXP.UTC ---
Discharge Plan Disposition Patient Disposition: Home, Self-Care Condition: Good Prescriptions Prescriptions: No Action levothyroxine [Synthroid] 75 mcg tablet 75 mcg PO DAILY omeprazole 20 mg capsule,delayed release(DR/EC) 20 mg PO DAILY celecoxib 200 mg capsule 200 mg PO DAILY Qty: 30 2RF Referrals Follow up/Referrals: Provider,Referral, [Primary Care Provider] - See instructions Activity Restrictions/Add. Instructions Additional Instructions/Restrictions: *weight bearing as tolerated *RICE, Rest the extremity, Ice 15-20 minutes 3-4 times daily, Compress- wear the erickson wrap as discussed as much as possible to help reduce swelling and pain, Elevate the extremity when at rest *Erickson wrap is for support and help control swelling, use it except in the shower. Be sure that is not to tight but not to loose either *Elevate when resting? *Ibuprofen 600-800mg every 6-8 hours as needed for pain an inflammation. If need something more can take Tylenol in between doses of Ibuprofen to help Immediately follow up with your family doctor for new or worsening of symptoms, or no noticeable improvement over the next 3-5 days Clinical Impressions Clinical Impression: Ankle sprain Instructions Patient Instructions: Ankle Sprain, DI for Ankle Sprain Print Language Print Language: Telugu Discharge ED Provider: Tabitha Triplett [facility] General Stated complaint: right ankle pain Mode of Arrival: Ambulatory Source of Information: Patient Limitations: No Limitations Time Seen by Provider: 07/02/24 17:13 Description of Symptoms (Recalled from Triage Doc. by RN): PATIENT C/O RIGHT ANKLE PAIN. SHE STATES SHE WAS WRESTLING WITH HER AND FELL ON THAT ANKLE 3 DAYS AGO HEENT Symptoms (Recalled from RN notes): No Resp Symptoms (Recalled from RN notes): No Skin Symptoms (Recalled from RN notes): No MS Symptoms (Recalled from RN notes): Yes Functional Status (Recalled from RN notes): WNL History of Present Illness Provider Complaint: Patient states that she was horse playing with her about 3 days ago and she fell on her right ankle States that she has been having pain in her right ankle States today it was still bothering her so she came in to get it checked Related Data Home Medications ?Medication ?Instructions ?Recorded ?Confirmed levothyroxine 75 mcg tablet 75 mcg PO DAILY hypothyroid 07/27/21 06/26/24 (Synthroid) omeprazole 20 mg capsule,delayed 20 mg PO DAILY 06/26/24 06/26/24 release Previous Rx's ?Medication ?Instructions ?Recorded celecoxib 200 mg capsule 200 mg PO DAILY #30 caps 06/26/24 Allergies Allergy/AdvReac Type Severity Reaction Status Date / Time amoxicillin Allergy Verified 06/26/24 14:28 hydrocodone Allergy Verified 06/26/24 14:28 Worker's Comp Is this a Worker's Comp case?: No [facility] Disclaimer: The information contained in this section may have been updated after the patient was seen, as this information can be updated by other users. Medical History (Updated 07/02/24 @ 17:12 by Tabitha Triplett APRN) DUB (dysfunctional uterine bleeding) Pyelonephritis PCOS (polycystic ovarian syndrome) Surgical History (Updated 06/26/24 @ 14:34 by JULES Charles) H/O gastric sleeve History of carpal tunnel release H/O knee surgery History of cholecystectomy History of tonsillectomy Family History Mother AMARO (nonalcoholic steatohepatitis) Other Cancer Diabetes Hypertension Social History Smoking Status: Never smoker alcohol intake: never substance use type: denies use current occupational status: employed Travel in the last 8 weeks: None ROS Obtained: Yes All systems reviewed & no additional complaints except as documented and Yes Systems reviewed as appropriate & no additional complaints except as documented Const
[2024-07-02 17:20] VITALS: BP 118/82; PULSE 80; RESP 17; TEMP 36.7; O2SAT 99
== END 2024-07-02 17:24 | disposition home or self-care (01) ==
PROVIDERS: Emergency Provider Nurse Practitioner
DX: S93.401A Sprain of unspecified ligament of right ankle, initial encounter (principal); M25.571 Pain in right ankle and joints of right foot; W19.XXXA Unspecified fall, initial encounter
CPT/HCPCS: 73610; 99212; 99213; G0463

== ENCOUNTER 2024-07-19 10:38 | Outpatient (CLI) | payer BC, SELFPAY ==
[2024-07-20 09:57] LABS: Progesterone 0.1 ng/mL (.)
== END 2024-07-19 23:59 | disposition home or self-care (01) ==
LOC: LAB 10:39
PROVIDERS: PCP Family Medicine; Visit Provider Obstetrics & Gynecology
DX: E28.2 Polycystic ovarian syndrome (principal); Z87.42 Personal history of other diseases of the female genital tract
CPT/HCPCS: 36415; 84144

== ENCOUNTER 2024-08-06 11:58 | Outpatient (CLI) | payer BC, SELFPAY ==
[2024-08-07 10:23] LABS: Progesterone 0.1 ng/mL (.)
== END 2024-08-06 23:59 | disposition home or self-care (01) ==
LOC: LAB 11:59
PROVIDERS: PCP Family Medicine; Visit Provider Obstetrics & Gynecology
DX: Z87.42 Personal history of other diseases of the female genital tract (principal); E28.2 Polycystic ovarian syndrome
CPT/HCPCS: 36415; 84144

== ENCOUNTER 2024-08-30 09:07 | Outpatient (CLI) | payer BC, SELFPAY ==
[2024-08-30 10:40] LABS: Alanine Aminotransferase 16 U/L (12-78); Albumin Level 4.9 g/dl (3.5-5.0); Albumin/Globulin Ratio 1.7 (1.1-1.8); Alkaline Phosphatase 86 U/L (38-126); Anion Gap 14.1 mEq/L (5-15); Aspartate Amino Transferase 25 U/L (14-36); Bilirubin,Total 0.6 mg/dl (0.2-1.3); Blood Urea Nitrogen 12 mg/dl (7-17); Calcium 8.7 mg/dl (8.4-10.2); Carbon Dioxide 24 mmol/L (22.0-30.0); Chloride 107 mmol/L (98-107); Estimated Glomerular Filt Rate 98 ml/min (>60); GFR (African American) 118 ML/MIN (>60); Globulin 2.9 g/dL (1.3-3.2); Glucose 78 mg/dl (74-100); Potassium 4.1 mmoL/L (3.5-5.1); Sodium 141 mmol/L (136-145); Total Protein,Serum 7.8 g/dl (6.3-8.2)
[2024-08-30 10:53] LABS: Basophils % 0.3 % (0.1-2.0); Eosinophils # 0.1 K/mm3 (0.0-0.4); Eosinophils % 2.7 % (0.1-12.0); Hematocrit 32.7 % (37.0-47.0); Hemoglobin 10.5 g/dL (12.2-16.2); Lymphocytes # 1.3 K/mm3 (0.7-4.5); Mean Corpuscular HGB Conc 32.3 g/dL (31.8-35.4); Mean Corpuscular Hemoglobin 22.7 pg (27.0-31.2); Mean Corpuscular Volume 70.5 fl (81-99); Mean Platelet Volume 7.6 fl (7.4-10.4); Monocytes # 0.2 K/mm3 (0.1-1.0); Monocytes % 4.9 % (1.7-9.3); Neutrophils # 3.2 K/mm3 (1.8-7.8); Platelet Count 217 K/mm3 (142-424); Red Blood Count 4.63 M/mm3 (4.20-5.40); Red Cell Distribution Width 14.8 % (11.5-17.5); White Blood Count 4.9 K/mm3 (4.8-10.8)
[2024-08-30 11:05] LABS: HCG,Quantitative < 2 mIU/ml (0-5.42)
[2024-09-03 04:39] LABS: Anti Mullerian Hormone (AMH) 8.75 ng/mL (.)
== END 2024-08-30 23:59 | disposition home or self-care (01) ==
LOC: PREOP 09:08
PROVIDERS: PCP Family Medicine; Visit Provider Obstetrics & Gynecology
DX: G89.29 Other chronic pain (principal); R10.2 Pelvic and perineal pain
CPT/HCPCS: 80053; 82397; 84702; 85025

== ENCOUNTER 2024-09-04 08:28 | Day surgery (SDC) | payer BC, SELFPAY ==
[2024-08-30 14:14] VITALS: BMI 28.1
[2024-09-04] VITALS (8 sets, daily range): BP systolic 116–168; BP diastolic 68–94; PULSE 66–101; RESP 18–24; TEMP 36.3–36.6; O2SAT 95–99
[2024-09-04] MEDS: LACTATED RINGERS 1000ML 1,000 ML 25 ML IV (09:07)
--- NOTE | 2024-09-04 09:38 | EXP.ANES.CKL ---
[facility] Disclaimer: The information contained in this section may have been updated after the patient was seen, as this information can be updated by other users. Medical History DUB (dysfunctional uterine bleeding) Pyelonephritis PCOS (polycystic ovarian syndrome) Surgical History H/O gastric sleeve History of carpal tunnel release H/O knee surgery History of cholecystectomy History of tonsillectomy Family History Mother AMARO (nonalcoholic steatohepatitis) Other Cancer Diabetes Hypertension Social History Smoking Status: Never smoker alcohol intake: never substance use type: denies use current occupational status: employed Travel in the last 8 weeks: None household members: spouse and children [facility] Anesthesia Checklist Patient Identification Patient Identification: Arm Band Structural Data Admitted From: Home Planned Operative Procedure/s: Diagnostic Laparoscopy Consent for Planned Operative Procedure(s) Verified: Yes Verified Documents: Surgical Consent and History and Physical NPO Status Verified Time NPO: 00:00 Additional verifications Anesthesia Reactions: No (nauseous afterwards) Hx Blood Transfusions: No Blood Transfusion Reaction: No Cephalosporin Allergy: No Airway Assessment Mallampati Score:: Class I C-Spine Mobility Assessed: Yes TMJ Mobility Assessed: Yes Dentition: Good Dentition Neurological Assessment Level of Consciousness: Awake, Alert and Appropriate Anesthesia Plan Anesthesia Risk discussed: Yes Anesthesia Plan: Verified ASA Class: II Anesthesia Type: General
[2024-09-04] MEDS: METHYLENE BLUE 0.5% 10ML AMPULE 50 MG IV (10:53)
[2024-09-04] MEDS: BUPIVACAINE 0.5% W/EPI 1:200,000 30ML VIAL 30 ML IJ (10:53)
--- NOTE | 2024-09-04 11:42 | P.PNANES_ITS ---
[facility] Anesthesia Record Part I Anesthesia Record I Intake, IV Amount: 1,000 Hydration: Adequate Estimated blood loss (mL): 20 Urine output (mL): 0 Blood Products used (#): none Blood Pressure: 133/83 SaO2: 96 Pulse Rate: 95 Airway Patency: Patent Respiratory Rate: 24 Temperature: 97.3 F Patient is:: Drowsy and Stable
[2024-09-04] MEDS: KETOROLAC 30MG/ML VIAL 30 MG IV (11:50)
--- NOTE | 2024-09-04 13:21 | P.OP_ITS ---
Date of procedure: 09/04/24 Pre-op Diagnosis:: 1. Pelvic pain 2. Dysmenorrhea 3. Dyspareunia 4. Left lower quadrant pain 5. Infertility, history of IVF Post-op Diagnosis:: 1. Pelvic pain 2. Dysmenorrhea 3. Dyspareunia 4. Left lower quadrant pain 5. Infertility, history of IVF Procedure performed:: 1. Diagnostic laparoscopy 2. Chromopertubation Surgeon:: Sara Marie DO PRODUCTION CONTROL COORDINATING CLERK:: Galen Bell Anesthesia: GETA Estimated blood loss (mL): 10 Clinical Note:: Sara Phillips is a 29-year-old -0-4-2 who presented to me with significant pelvic pain. She endorsed chronic severe dysmenorrhea and dyspareunia. Reported a history of infertility and stated that she had previously had IVF. Reports that she has every day chronic cramping and pain in her left adnexa but also severe cyclical dysmenorrhea. She is requesting a diagnostic lap to screen for endometriosis as well as chromopertubation to check for tubal patency. Operative findings:: 1. Bimanual examination revealed an anteverted 8-week size uterus with smooth contour without any adnexal masses. 2. Laparoscopic exam revealed normal-appearing uterus, ovaries, fallopian tubes and liver. There were some clear lesions which were suspected to possibly be endometriosis but on further evaluation I believe it was just peritoneal fluid. There is no gunpowder lesions noted. No Ulises-Masters windows appreciated. No endometriosis on the ovaries, cul-de-sac, or adnexa bilaterally. There was 1 small area that was suspicious for endometriosis on the patient's right ureter that was not able to be grasped, removed, or coagulated. 3. There were scant adhesions noted extending from the left colon to the left pelvic sidewall that were easily taken down. Operative note:: The patient was taken to the operating room where general anesthesia was obtained and noted to be adequate. SCDs were placed for thromboembolism prophylaxis and found to be working. The patient was placed in the dorsal l ithotomy position using yellowfin stirrups. Timeout verified the correct patient and procedure. The patient was prepped and draped in a usual sterile fashion. A catheter was used to drain her bladder. An uterine manipulator was placed and my top gloves were removed. 10mL of Lidocaine with epinepherine was injected infraumbilically and a scalpel was used to make a 5 mm infraumbilical incision with the assistance from a hemostat. The skin was tented and Optiview blunt trocar was introduced into the abdomen in the usual fashion. CO2 gas was connected with an initial pressure of 6 mmHg noted. Pneumoperitoneum was created to a pressure of 15 mmHg. The laparoscopic camera was inserted and a quick survey of the abdomen revealed grossly normal anatomy. The uterus appeared to be anteverted with a normal size shape and contour. The patient was placed in Trendelenburg. 10mLs of local anesthetic was injected and a 5mm incision was then made in the right lower quadrant with careful attention to avoid the rectus muscles and vasculature and under direct laparoscopic visualization a blunt trocar was introduced into the abdominal cavity. This process was repeated on the left side. The fallopian tubes were identified on the cornu of the uterus and followed out to the ovaries which revealed grossly appearing anatomy. A thorough abdominal exam was completed by using the uterine manipulator to gently elevate the uterus and extensively screened the posterior cul-de-sac. The uterus was lowered and the anterior uterus and bladder wall were extensively screened. The ovaries were lifted and each of the bilateral adnexa were thoroughly evaluated for endometriosis. There was 1 small clear blood that was noted on the left ureter that was unable to be biopsied or coagulated, this could have possibly been endometriosis. Otherwise, there were no signs of endometriosis. I saw no gunpowder lesions or Ulises-Masters windows. A 10 mL mixture of methylene blue and normal saline was made up and it was inserted through the uterine manipulator and dye was noted out of the fallopian tubes bilaterally Pneumoperitoneum reduced, and all ports removed. The 3 abdominal incisions were closed with a single simple interrupted suture using 4-0 Monocryl. A Band-Aid was applied to each incision. The uterine manipulator was removed. All counts were correct x2, per nursing. The patient was extubated, stable, and transferred to the PACU. She will be discharged after meeting all DC criteria to include voiding, ambulating and tolerating PO independently. Condition: stable Disposition: same day Complications:: None
--- NOTE | 2024-09-05 08:43 | EXP.ANES.II ---
[facility] Anesthesia Record Part II Anesthesia Record Part II Discharge Time: 12:05 Destination: Surgical Day Care (OP Surgery) PACU nurse assessment reviewed?: Yes Patient Condition:: Good Anesthesia Complications:: None Swallowing reflex intact?: Yes Airway Patency: Patent Cyanosis?: No Blood Pressure: 135/77 SaO2: 98 Respiratory Rate: 18 Pulse Rate: 80 Temperature: 97.8 F Mental Status: Alert & Oriented Pain level:: 3 Nausea and/or vomitting:: None Intake, IV Amount: 0 Hydration: Adequate
[2024-09-05 08:44] VITALS: BP 135/77; PULSE 80; RESP 18; TEMP 36.6; O2SAT 98
== END 2024-09-04 13:25 | disposition home or self-care (01) ==
PROVIDERS: PCP Family Medicine; Visit Provider Obstetrics & Gynecology
PROC: (CPT 49320; principal; 2024-09-04 10:00)
DX: R10.2 Pelvic and perineal pain (principal); N94.6 Dysmenorrhea, unspecified; N94.10 Unspecified dyspareunia; R10.32 Left lower quadrant pain; N97.9 Female infertility, unspecified
CPT/HCPCS: 49320; 58350; J3490; J1100; J1885; J2250; J2405; J3010; J7120

== ENCOUNTER 2025-03-25 13:13 | Outpatient (CLI) | payer BC, SELFPAY ==
--- NOTE | 2025-03-25 13:16 | XR_ITS ---
FINAL REPORT CLINICAL HISTORY: Right knee pain COMPARISON: None FINDINGS: RIGHT KNEE Three views demonstrate no acute fracture or dislocation. The joint spaces appear normal. No acute soft tissue abnormality is seen. IMPRESSION: No acute bony abnormality. Reviewed, Interpreted and Dictated by Jacinto Dubon MD Transcribed by Stephany June Authenticated and . [facility]
--- OUTSIDE RECORDS SUMMARY | 2025-03-25 13:16 | XMS_ITS | Continuity of Care Document ---
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 DUONG, DAIRY CHEMIST-C) location was [facility] [address] in [place], [place]. Patient location: her workplace Patient gave informed verbal consent for this visit ([address] 12:005 Section 2 (3)). I spent a total of [ 20] minutes during this real-time clinical encounter started at [240 ] and ended at [ 300]. Consent was obtained to engage in telehealth service. Greater than 50% of the time spent was devoted to counseling and coordinati ng care including review of patient record, patient lab data and studies as well as discussing diagnostic evaluation and workup, planned therapeuti c interventi on and further dispositio n of care. This include any additional research needed to obtain further informatio n in formulatin g the plan of care for this patient. This includes counseling the patient about their disease and diagnosis, specifical ly as above. The patient was also counseled on the precaution for COVID-19 including importance of hand washing and social distancing . [id number] Angelito Estrada DNP, DUONG, DAIRY CHEMIST-C [facility] [address] [place] [address] [address] [place] [address] 03/06/2025 13:51:19 03/06/2025 14:15:10 History of bariatric surgical procedure 808352689 Z98.84 Advised qid intake 50% protein 6172-7037 calories/d y less than 100 carbs/dyTo days visit was performed with AUDIO ONLY per patient request. Patient could not be seen utilizing audio/vide o or in person due to patient being in [place], [place], thus this visit was performed at patients request. Reason visit was not performed by video is due to patient not having access to smartphone . Provider (Angelito Estrada DNP, DUONG, DAIRY CHEMIST-C) location was [facility] [address], [address] in [place], [place]. Patient location: work. Patient gave informed verbal consent for this visit (900 [address]ALE 12:005 Section 2 (3)). I spent a total of [10 ] minutes during this real-time clinical encounter started at [200 ] and ended at [ 210 ]. Consent was obtained to engage in telehealth service. Greater than 50% of the time spent was devoted to counseling and coordinati ng care including review of patient record, patient lab data and studies as well as discussing diagnostic evaluation and workup, planned therapeuti c interventi on and further dispositio n of care. This include any additional research needed to obtain further informatio n in formulatin g the plan of care for this patient. This includes counseling the patient about their disease and diagnosis, specifical ly as above. The patient was also counseled on the precaution for COVID-19 including importance of hand washing and social distancing . Intentiona l weight loss 188208128 R63.8 History of gastrectomy 862488148 Z90.3 Advised qid intake 50% protein 5077-3321 calories/d y less than 100 carbs/dy Follow-up with Repeat SILVIA in 3mth suggested .. At [facility] risk of nutritional deficit 158943144 Z91.89 Acquired hypothyroidism 052761303 E03.9 Obesity 455822513 E66.9 we will follow up in 1 month. I will increase to 7.5 mg weekly. Patient was given realistic expectatio ns regarding medication regimen. Health Concerns Section Related Observation LastModified by Organization Detai ls LastModified Time None Recorded Concern Status LastModified by Organization Details LastModified Time None Recorded Payers Encounter Date Sequence Insurance Name Policy Number Policy Wilson Covered Member ID Wilson Member ID Guarantor Name 03/06/2025 1 [place] [employer] (O) [id number] Jeremiah Knowles Deal [id number] [facility] Deal Notes Date Note Type Note Provider Name and Address Organization Details Recorded Time 03/06/2025 text/html Patient presents the office today via telehealth for routine follow-up status post bariatric gastric sleeve gastrectomy surgery ( 2021 ). She is currently taking Zepbound 5 mg weekly. She is happy to report that is has quieted down the food noise . Her last injection of the 5 mg dose was this past Monday. Patient doing well. Reports q.i.d. small meal intake. Reports 90-100g/dy protein intake and good hydration.Patient is drinking 80 ounces of water a day.Daily Calories 1200Taking routine vitamins as advised.Heartburn /gastroesophageal reflux: deniesPt Denies : abdominal pain, prandial issues Nausea, Vomiting, bowel or bladder issuesTotal Weight loss Since last office visit has been 9 lbsPt is happy with their quality of life after Weight loss Surgery. Today's InBody not performed due to this being a telehealth appt Angelito Esrtada, MATTHEW, FURNACE MECHANIC, DAIRY CHEMIST-C [address], [place], [address], [facility] [place] [facility] [place] 03/06/2025 14:12:43 OBGyn Episode No OBEpisode recorded.
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
--- OUTSIDE RECORDS SUMMARY | 2025-03-25 13:17 | XMS_ITS | Data Portability ---
Author Organization 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 Plan of Treatment Reminders Order Date Submit Date Provider Last Modified By Organization Details Last Modified Time Details Appointments TELEPHONI C VISIT 15 2024 09:20A Jenise Estrada, DNP, DEPARTMENT SALES MANAGER, HOST-C Not available Not available Not available Lab HbA1c (hemoglob in A1c), blood 2024 025 [email or web address] [facility], [address], [place], [address], 01/17/2025 12:47:29 TSH + free T4, serum 2024 025 [email or web address] [facility], [address], [address], [place], [address], 01/17/2025 12:47:30 lipid panel, serum 2024 025 [email or web address] [facility], [address], [address], [place], [address], 01/17/2025 12:47:30 iron + TIBC + ferritin, serum 2024 025 [email or web address] [facility], [address], [address], [place], [address], 01/17/2025 12:47:29 folate, serum 2024 025 [email or web address] [facility], [address], [address], [place], [address], 01/17/2025 12:47:29 prealbumi n, serum 2024 025 [facility], [address], [address], [place], [address], 01/17/2025 12:47:29 thiamine, QN, blood 2024 025 [email or web address] [facility], [address], [address], [place], [address], 01/17/2025 12:47:29 methylmal cristiano, QN, serum or plasma 2024 025 [email or web address] [facility], [address], [address], [place], [address], 01/17/2025 12:47:29 vitamin D, 25-hydrox y, total, serum 2024 025 [email or web address] [facility], [address], [address], [place], [address], 01/17/2025 12:47:29 vitamin E, serum 2024 025 [email or web address] [facility], [address], [address], [place], [address], 01/17/2025 12:47:29 vitamin A (retinol) , serum 2024 025 [email or web address] [facility], [address], [address], [place], [address], 01/17/2025 12:47:29 CBC w/ auto diff 2024 025 [email or web address] [facility], [address], [address], [place], [address], 01/17/2025 12:47:29 CMP, serum or plasma 2024 025 [email or web address] [facility], [address], [address], [place], [address], 01/17/2025 12:47:29 TSH + free T4, serum 2023 024 [email or web address] [facility], [address], [address], [place], [address], 02/26/2024 10:54:47 lipid panel, serum 2023 024 [email or web address] [facility], [address], [address], [place], [address], 02/26/2024 10:54:48 CBC w/ auto diff 2023 024 [email or web address] [facility], [address], [address], [place], [address], 02/26/2024 10:54:46 CMP, serum or plasma 2023 024 [facility], [address], [address], [place], [address], 02/26/2024 10:54:46 HbA1c (hemoglob in A1c), blood 2023 024 [facility], [address], [address], [place], [address], 02/26/2024 10:54:46 iron + TIBC + ferritin, serum 2023 024 [email or web address] [facility], [address], [address], [place], [address], 02/26/2024 10:54:46 folate, serum 2023 024 [email or web address] [facility], [address], [address], [place], [address], 02/26/2024 10:54:46 vitamin E, serum 2023 024 [email or web address] [facility], [address], [address], [place], [address], 02/26/2024 10:54:47 vitamin A (retinol) , serum 2023 024 [email or web address] [facility], [address], [address], [place], [address], 02/26/2024 10:54:47 prealbumi n, serum 2023 024 [email or web address] [facility], [address], [address], [place], [address], 02/26/2024 10:54:47 thiamine, QN, blood 2023 024 [email or web address] [facility], [address], [address], [place], [address], 02/26/2024 10:54:48 methylmal cristiano, QN, serum or plasma 2023 024 [email or web address] [facility], [address], [address], [place], [address], 02/26/2024 10:54:48 vitamin D, 25-hydrox y, total, serum 2023 024 [email or web address] [facility], [address], [address], [place], [address], 02/26/2024 10:54:47 Referral None recorded. Procedures None recorded. Surgeries None recorded. Imaging MRI, abdomen, w/wo contrast 2023 024 [email or web address] [facility] (Central[facility] Sched[facility]), [address], [place], [address], 04/30/2024 08:27:15 Medication Orders Zepbound 7.5 mg/0.5 mL subcutane ous pen injector 2024 025 [facility], [address], [place], [address], 03/06/2025 14:11:55 Zepbound 5 mg/0.5 mL subcutane ous pen injector 2024 025 [place] [address] [facility], [address], [place], [address], 02/06/2025 15:11:31 Zepbound 2.5 mg/0.5 mL subcutane ous pen injector 2024 025 [facility], [address], [place], [address], 03/06/2025 13:58:34 famotidin e 20 mg tablet 2024 025 [place] [address] [facility], [address], [place], [address], 01/09/2025 13:40:29 omeprazol e 20 mg capsule,d elayed release 2024 025 [place] [address] [facility], [address], [place], [address], 01/09/2025 13:40:31 Patient TargetsNo targets recorded. Patient InstructionsNo instructions recorded. Reason for Referral None Reported. Results Created Date Observation Date Name Description Value Unit Range Abnormal Flag Note LastModifiedBy Organization Detail LastModifiedTime 02/19/20 24 02/20/2024 FE+TI BC+FE R iron bind.cap.(TI BC) 319 ug/dL 250-45 0 Not Available [facility] ([facility]) [address] [place], [address], 02/26/2024 18:36:26 02/19/20 24 02/20/2024 FE+TI BC+FE R UIBC 301 ug/dL 131-42 5 Not Available [facility] ([facility]) [address] [place], [address], 02/26/2024 18:36:26 02/19/20 24 02/20/2024 FE+TI BC+FE R iron 18 ug/dL 27-159 below low normal Not Available [facility] ([facility]) [address] [place], [address], 02/26/2024 18:36:26 02/19/20 24 02/20/2024 FE+TI BC+FE R iron saturation 6 % 15-55 alert low Not Available [facility] ([facility]) [address] [place], [address], 02/26/2024 18:36:26 02/19/20 24 02/20/2024 FE+TI BC+FE R ferritin 160 NG/mL 15-150 above high normal Not Available [facility] ([facility]) [address] [place], [address], 02/26/2024 18:36:26 02/19/20 24 02/20/2024 TSH+F REE T4 TSH 4.040 uIU/m L 0.450- 4.500 Not Available [facility] ([facility]) [address] [place], [address], 02/26/2024 18:36:27 02/19/20 24 02/20/2024 TSH+F REE T4 T4,free(dire ct) 0.97 NG/dL 0.82-1 .77 Not Available [facility] ([facility]) [address] [place], [address], 02/26/2024 18:36:27 02/19/20 24 02/20/2024 CBC WITH DIFFE RENTI AL/PL ATELE T WBC 6.2 x10e3 /uL 3.4-10 .8 Not Available [facility] ([facility]) [address] [place], [address], 02/26/2024 18:36:28 02/19/20 24 02/20/2024 CBC WITH DIFFE RENTI AL/PL ATELE T RBC 4.56 x10e6 /uL 3.77-5 .28 Not Available [facility] ([facility]) [address] [place], [address], 02/26/2024 18:36:28 02/19/20 24 02/20/2024 CBC WITH DIFFE RENTI AL/PL ATELE T hemoglobin 10.4 g/dL 11.1-1 5.9 below low normal Not Available [facility] ([facility]) [address] [place], [address], 02/26/2024 18:36:28 02/19/20 24 02/20/2024 CBC WITH DIFFE RENTI AL/PL ATELE T hematocrit 34.3 % 34.0-4 6.6 Not Available [facility] ([facility]) [address] [place], [address], 02/26/2024 18:36:28 02/19/20 24 02/20/2024 CBC WITH DIFFE RENTI AL/PL ATELE T MCV 75 fL 79-97 below low normal Not Available [facility] ([facility]) [address] [place], [address], 02/26/2024 18:36:28 02/19/20 24 02/20/2024 CBC WITH DIFFE RENTI AL/PL ATELE T MCH 22.8 pg 26.6-3 3.0 below low normal Not Available [facility] ([facility]) [address], [place], [address], 02/26/2024 18:36:28 02/19/20 24 02/20/2024 CBC WITH DIFFE RENTI AL/PL ATELE T MCHC 30.3 g/dL 31.5-3 5.7 below low normal Not Available [facility] ([facility]) [address], [place], [address], 02/26/2024 18:36:28 02/19/20 24 02/20/2024 CBC WITH DIFFE RENTI AL/PL ATELE T RDW 14.9 % 11.7-1 5.4 Not Available [facility] ([facility]) [address], [place], [address], 02/26/2024 18:36:28 02/19/20 24 02/20/2024 CBC WITH DIFFE RENTI AL/PL ATELE T platelets 171 x10e3 /uL 150-45 0 Not Available [facility] ([facility]) [address], [place], [address], 02/26/2024 18:36:28 02/19/20 24 02/20/2024 CBC WITH DIFFE RENTI AL/PL ATELE T neutrophils 72 % not estab. Not Available [facility] ([facility]) [address] [place], [address], 02/26/2024 18:36:28 02/19/20 24 02/20/2024 CBC WITH DIFFE RENTI AL/PL ATELE T lymphs 19 % not estab. Not Available [facility] ([facility]) [address] [place], [address], 02/26/2024 18:36:28 02/19/20 24 02/20/2024 CBC WITH DIFFE RENTI AL/PL ATELE T monocytes 8 % not estab. Not Available [facility] ([facility]) [address], [place], [address], 02/26/2024 18:36:28 02/19/20 24 02/20/2024 CBC WITH DIFFE RENTI AL/PL ATELE T eos 1 % not estab. Not Available [facility] ([facility]) [address], [place], [address], 02/26/2024 18:36:28 02/19/20 24 02/20/2024 CBC WITH DIFFE RENTI AL/PL ATELE T basos 0 % not estab. Not Available [facility] ([facility]) [address], [place], [address], 02/26/2024 18:36:28 02/19/20 24 02/20/2024 CBC WITH DIFFE RENTI AL/PL ATELE T immature cells HOST Not Available [facility] ([facility]) [address] [place], [address], 02/26/2024 18:36:28 02/19/20 24 02/20/2024 CBC WITH DIFFE RENTI AL/PL ATELE T neutrophils (absolute) 4.4 x10e3 /uL 1.4-7. 0 Not Available [facility] ([facility]) [address] [place], [address], 02/26/2024 18:36:28 02/19/20 24 02/20/2024 CBC WITH DIFFE RENTI AL/PL ATELE T lymphs (absolute) 1.2 x10e3 /uL 0.7-3. 1 Not Available [facility] ([facility]) [address] [place], [address], 02/26/2024 18:36:28 02/19/20 24 02/20/2024 CBC WITH DIFFE RENTI AL/PL ATELE T monocytes(ab solute) 0.5 x10e3 /uL 0.1-0. 9 Not Available [facility] ([facility]) [address], [place], [address], 02/26/2024 18:36:28 02/19/20 24 02/20/2024 CBC WITH DIFFE RENTI AL/PL ATELE T eos (absolute) 0.1 x10e3 /uL 0.0-0. 4 Not Available [facility] ([facility]) [address], [place], [address], 02/26/2024 18:36:28 02/19/20 24 02/20/2024 CBC WITH DIFFE RENTI AL/PL ATELE T baso (absolute) 0.0 x10e3 /uL 0.0-0. 2 Not Available [facility] ([facility]) [address], [place], [address], 02/26/2024 18:36:28 02/19/20 24 02/20/2024 CBC WITH DIFFE RENTI AL/PL ATELE T immature granulocytes 0 % not estab. Not Available [facility] ([facility]) [address], [place], [address], 02/26/2024 18:36:28 02/19/20 24 02/20/2024 CBC WITH DIFFE RENTI AL/PL ATELE T immature grans (abs) 0.0 x10e3 /uL 0.0-0. 1 Not Available [facility] ([facility]) [address], [place], [address], 02/26/2024 18:36:28 02/19/20 24 02/20/2024 CBC WITH DIFFE RENTI AL/PL ATELE T NRBC HOST Not Available [facility] ([facility]) [address], [place], [address], 02/26/2024 18:36:28 02/19/20 24 02/20/2024 CBC WITH DIFFE RENTI AL/PL MILTON Galloway hematology comments: HOST Not Available [facility] ([facility]) [address] [place], [address], 02/26/2024 18:36:28 02/19/20 24 02/20/2024 COMP. METAB OLIC PANEL (14) glucose 91 mg/dL 70-99 Not Available [facility] ([facility]) [address] [place], [address], 02/26/2024 18:36:29 02/19/20 24 02/20/2024 COMP. METAB OLIC PANEL (14) BUN 6 mg/dL 6-20 Not Available [facility] ([facility]) [address] [place], [address], 02/26/2024 18:36:29 02/19/20 24 02/20/2024 COMP. METAB OLIC PANEL (14) creatinine 0.72 mg/dL 0.57-1 .00 Not Available [facility] ([facility]) [address] [place], [address], 02/26/2024 18:36:29 02/19/20 24 02/20/2024 COMP. METAB OLIC PANEL (14) eGFR 115 mL/mi n/1.7 3 >59 Not Available [facility] ([facility]) [address] [place], [address], 02/26/2024 18:36:29 02/19/20 24 02/20/2024 COMP. METAB OLIC PANEL (14) BUN/creatini ne ratio 8 9-23 below low normal Not Available [facility] ([facility]) [address] [place], [address], 02/26/2024 18:36:29 02/19/20 24 02/20/2024 COMP. METAB OLIC PANEL (14) sodium 140 mmol/ L 134-14 4 Not Available [facility] ([facility]) [address] [place], [address], 02/26/2024 18:36:29 02/19/20 24 02/20/2024 COMP. METAB OLIC PANEL (14) potassium 3.7 mmol/ L 3.5-5. 2 Not Available [facility] ([facility]) [address] [place], [address], 02/26/2024 18:36:29 02/19/20 24 02/20/2024 COMP. METAB OLIC PANEL (14) chloride 103 mmol/ L 96-106 Not Available [facility] ([facility]) [address] [place], [address], 02/26/2024 18:36:29 02/19/20 24 02/20/2024 COMP. METAB OLIC PANEL (14) carbon dioxide, total 20 mmol/ L 20-29 Not Available [facility] ([facility]) [address] [place], [address], 02/26/2024 18:36:29 02/19/20 24 02/20/2024 COMP. METAB OLIC PANEL (14) calcium 8.8 mg/dL 8.7-10 .2 Not Available [facility] ([facility]) [address] [place], [address], 02/26/2024 18:36:29 02/19/20 24 02/20/2024 COMP. METAB OLIC PANEL (14) protein, total 6.9 g/dL 6.0-8. 5 Not Available [facility] ([facility]) [address] [place], [address], 02/26/2024 18:36:29 02/19/20 24 02/20/2024 COMP. METAB OLIC PANEL (14) albumin 4.3 g/dL 4.0-5. 0 Not Available [facility] ([facility]) [address] [place], [address], 02/26/2024 18:36:29 02/19/20 24 02/20/2024 COMP. METAB OLIC PANEL (14) globulin, total 2.6 g/dL 1.5-4. 5 Not Available [facility] ([facility]) [address] [place], [address], 02/26/2024 18:36:29 02/19/20 24 02/20/2024 COMP. METAB OLIC PANEL (14) A/G ratio 1.7 1.2-2. 2 Not Available [facility] ([facility]) [address] [place], [address], 02/26/2024 18:36:29 02/19/20 24 02/20/2024 COMP. METAB OLIC PANEL (14) bilirubin, total 0.5 mg/dL 0.0-1. 2 Not Available [facility] ([facility]) [address] [place], [address], 02/26/2024 18:36:29 02/19/20 24 02/20/2024 COMP. METAB OLIC PANEL (14) alkaline phosphatase 108 IU/L 44-121 Not Available [facility] ([facility]) [address] [place], [address], 02/26/2024 18:36:29 02/19/20 24 02/20/2024 COMP. METAB OLIC PANEL (14) AST (SGOT) 10 IU/L 0-40 Not Available [facility] ([facility]) [address] [place], [address], 02/26/2024 18:36:29 02/19/20 24 02/20/2024 COMP. METAB OLIC PANEL (14) ALT (SGPT) 11 IU/L 0-32 Not Available [facility] ([facility]) [address] [place], [address], 02/26/2024 18:36:29 02/19/20 24 02/20/2024 LIPID PANEL cholesterol, total 158 mg/dL 100-19 9 Not Available [facility] ([facility]) [address] [place], [address], 02/26/2024 18:36:30 02/19/20 24 02/20/2024 LIPID PANEL triglyceride s 141 mg/dL 0-149 Not Available [facility] ([facility]) [address] [place], [address], 02/26/2024 18:36:30 02/19/20 24 02/20/2024 LIPID PANEL HDL cholesterol 45 mg/dL >39 Not Available [facility] ([facility]) [address] [place], [address], 02/26/2024 18:36:30 02/19/20 24 02/20/2024 LIPID PANEL VLDL cholesterol jessica 25 mg/dL 5-40 Not Available [facility] ([facility]) [address] [place], [address], 02/26/2024 18:36:30 02/19/20 24 02/20/2024 LIPID PANEL LDL chol calc ([facility]) 88 mg/dL 0-99 Not Available [facility] ([facility]) [address] [place], [address], 02/26/2024 18:36:30 02/19/20 24 02/20/2024 LIPID PANEL comment: HOST Not Available [facility] ([facility]) [address] [place], [address], 02/26/2024 18:36:30 02/19/20 24 02/21/2024 VITAM IN E vitamin E(alpha tocopherol) 10.8 mg/L 5.9-19 .4 Not Available [facility] ([facility]) [address] [place], [address], 02/26/2024 18:36:31 02/19/20 24 02/21/2024 VITAM IN E vitamin E(gamma tocopherol) 1.8 mg/L 0.7-4. 9 Refer ence inter vals for alpha and gamma -toco phero l deter mined from [facility] natio n Surve y, 2004- 2005. Indiv idual s with alpha -toco phero l level s less than 5.0 mg/L are consi dered vitam in E defic ient. Not Available [facility] ([facility]) [address], [place], [address], 02/26/2024 18:36:31 02/19/20 24 02/20/2024 HEMOG LOBIN A1C hemoglobin A1C 5.1 % 4.8-5. 6 Predi abete s: 5.7 - 6.4 Diabe [place]: >6.4 Glyce quintin contr ol for adult s with diabe [place]: <7.0 Not Available [facility] ([facility]) [address], [place], [address], 02/26/2024 18:36:32 02/19/20 24 02/20/2024 FOLAT E (FOLI C ACID) , SERUM folate (folic acid), serum 4.5 NG/mL >3.0 A serum folat e victoriano ntrat ion of less than 3.1 ng/mL is consi dered to repre sent clini jessica defic iency . Not Available [facility] ([facility]) [address], [place], [address], 02/26/2024 18:36:33 02/19/20 24 02/21/2024 VITAM IN A, SERUM vitamin A 19.1 ug/dL 18.9-5 7.3 Refer ence inter vals for vitam in A deter mined from [facility] inter nal studi es. Indiv idual s with vitam in A less than 20 ug/dL are consi dered vitam in A defic ient and those with serum victoriano ntrat ions less than 10 ug/dL are consi dered sever gonzalo defic ient. This test was devel oped and its perfo rmanc e jonathan maori stics deter mined by [facility]. It has not been clear ed or appro shae by the Food and Drug Admin istra tion. Not Available [facility] ([facility]) [address], [place], [address], 02/26/2024 18:36:34 02/19/20 24 02/20/2024 VITAM IN D, 25-HY DROXY vitamin D, 25-hydroxy 32.0 NG/mL 30.0-1 00.0 Vitam in D defic iency has been defin ed by the Insti tute of Medic ine and an Endoc rine Socie ty pract ice guide line as a level of serum 25-OH vitam in D less than 20 ng/mL (1,2) . The Endoc rine Socie ty went on to furth er defin e vitam in D insuf ficie ncy as a level betwe en 21 and 29 ng/mL (2). 1. IOM (Inst itute of Medic ine). 2010. Dieta ry refer ence intak es for calci um and D. Amalia red [place]: [facility] . 2. Sami ramos [place], Rose houston [place], Arian off-F errar i NAGY, et al. Evalu ation , treat ment, and preve ntion of vitam in D defic iency : an Endoc rine Socie ty clini jessica pract ice guide line. JCEM. 2010; 96(7) :1911 -30. Not Available [facility] ([facility]) [address], [place], [address], 02/26/2024 18:36:34 02/19/20 24 02/21/2024 VITAM IN B1 (THIA MINE) , BLOOD vit. B1, whole blood 106.2 nmol/ L 66.5-2 00.0 Not Available [facility] ([facility]) [address], [place], [address], 02/26/2024 18:36:35 02/19/20 24 02/26/2024 METHY LMALO HIWOT ACID, SERUM methylmaloni c acid, serum 191 nmol/ L 0-378 Not Available [facility] ([facility]) [address] [place], [address], 02/26/2024 18:36:36 02/19/20 24 02/20/2024 PREAL BUMIN prealbumin 12 mg/dL 14-35 below low normal Not Available [facility] ([facility]) [address] [place], [address], 02/26/2024 18:36:37 01/10/20 25 01/10/2025 FE+TI BC+FE R iron bind.cap.(TI BC) 479 ug/dL 250-45 0 above high normal Not Available [facility] ([facility]) [address] [place], [address], 01/19/2025 08:36:15 01/10/20 25 01/10/2025 FE+TI BC+FE R UIBC 456 ug/dL 131-42 5 above high normal Not Available [facility] ([facility]) [address] [place], [address], 01/19/2025 08:36:15 01/10/20 25 01/10/2025 FE+TI BC+FE R iron 23 ug/dL 27-159 below low normal Not Available [facility] ([facility]) [address] [place], [address], 01/19/2025 08:36:15 01/10/20 25 01/10/2025 FE+TI BC+FE R iron saturation 5 % 15-55 alert low Not Available [facility] ([facility]) [address] [place], [address], 01/19/2025 08:36:15 01/10/20 25 01/10/2025 FE+TI BC+FE R ferritin 7 NG/mL 15-150 below low normal Not Available [facility] ([facility]) [address] [place], [address], 01/19/2025 08:36:15 01/10/20 25 01/10/2025 TSH+F REE T4 TSH 3.330 uIU/m L 0.450- 4.500 normal Not Available [facility] ([facility]) [address] [place], [address], 01/19/2025 08:36:16 01/10/20 25 01/10/2025 TSH+F REE T4 T4,free(dire ct) 1.20 NG/dL 0.82-1 .77 normal Not Available [facility] ([facility]) [address] [place], [address], 01/19/2025 08:36:16 01/10/20 25 01/10/2025 CBC WITH DIFFE RENTI AL/PL ATELE T WBC 7.2 x10e3 /uL 3.4-10 .8 normal Not Available [facility] ([facility]) [address] [place], [address], 01/19/2025 08:36:16 01/10/20 25 01/10/2025 CBC WITH DIFFE RENTI AL/PL ATELE T RBC 4.86 x10e6 /uL 3.77-5 .28 normal Not Available [facility] ([facility]) [address] [place], [address], 01/19/2025 08:36:16 01/10/20 25 01/10/2025 CBC WITH DIFFE RENTI AL/PL ATELE T hemoglobin 10.0 g/dL 11.1-1 5.9 below low normal Not Available [facility] ([facility]) [address] [place], [address], 01/19/2025 08:36:16 01/10/20 25 01/10/2025 CBC WITH DIFFE RENTI AL/PL ATELE T hematocrit 33.3 % 34.0-4 6.6 below low normal Not Available [facility] ([facility]) [address], [place], [address], 01/19/2025 08:36:16 01/10/20 25 01/10/2025 CBC WITH DIFFE RENTI AL/PL ATELE T MCV 69 fL 79-97 below low normal Not Available [facility] ([facility]) [address], [place], [address], 01/19/2025 08:36:16 01/10/20 25 01/10/2025 CBC WITH DIFFE RENTI AL/PL ATELE T MCH 20.6 pg 26.6-3 3.0 below low normal Not Available [facility] ([facility]) [address], [place], [address], 01/19/2025 08:36:16 01/10/20 25 01/10/2025 CBC WITH DIFFE RENTI AL/PL ATELE T MCHC 30.0 g/dL 31.5-3 5.7 below low normal Not Available [facility] ([facility]) [address] [place], [address], 01/19/2025 08:36:16 01/10/20 25 01/10/2025 CBC WITH DIFFE RENTI AL/PL ATELE T RDW 14.7 % 11.7-1 5.4 Not Available [facility] ([facility]) [address] [place], [address], 01/19/2025 08:36:16 01/10/20 25 01/10/2025 CBC WITH DIFFE RENTI AL/PL ATELE T platelets 265 x10e3 /uL 150-45 0 normal Not Available [facility] ([facility]) [address] [place], [address], 01/19/2025 08:36:16 01/10/20 25 01/10/2025 CBC WITH DIFFE RENTI AL/PL ATELE T neutrophils 66 % not estab. normal Not Available [facility] ([facility]) [address], [place], [address], 01/19/2025 08:36:16 01/10/20 25 01/10/2025 CBC WITH DIFFE RENTI AL/PL ATELE T lymphs 24 % not estab. normal Not Available [facility] ([facility]) [address], [place], [address], 01/19/2025 08:36:16 01/10/20 25 01/10/2025 CBC WITH DIFFE RENTI AL/PL ATELE T monocytes 8 % not estab. normal Not Available [facility] ([facility]) [address], [place], [address], 01/19/2025 08:36:16 01/10/20 25 01/10/2025 CBC WITH DIFFE RENTI AL/PL ATELE T eos 2 % not estab. normal Not Available [facility] ([facility]) [address], [place], [address], 01/19/2025 08:36:16 01/10/20 25 01/10/2025 CBC WITH DIFFE RENTI AL/PL ATELE T basos 0 % not estab. normal Not Available [facility] ([facility]) [address] [place], [address], 01/19/2025 08:36:16 01/10/20 25 01/10/2025 CBC WITH DIFFE RENTI AL/PL ATELE T immature cells HOST Not Available [facility] ([facility]) [address], [place], [address], 01/19/2025 08:36:16 01/10/20 25 01/10/2025 CBC WITH DIFFE RENTI AL/PL ATELE T neutrophils (absolute) 4.7 x10e3 /uL 1.4-7. 0 normal Not Available [facility] ([facility]) [address] [place], [address], 01/19/2025 08:36:16 01/10/20 25 01/10/2025 CBC WITH DIFFE RENTI AL/PL ATELE T lymphs (absolute) 1.7 x10e3 /uL 0.7-3. 1 normal Not Available [facility] ([facility]) [address], [place], [address], 01/19/2025 08:36:16 01/10/20 25 01/10/2025 CBC WITH DIFFE RENTI AL/PL ATELE T monocytes(ab solute) 0.6 x10e3 /uL 0.1-0. 9 normal Not Available [facility] ([facility]) [address] [place], [address], 01/19/2025 08:36:16 01/10/20 25 01/10/2025 CBC WITH DIFFE RENTI AL/PL ATELE T eos (absolute) 0.1 x10e3 /uL 0.0-0. 4 normal Not Available [facility] ([facility]) [address], [place], [address], 01/19/2025 08:36:16 01/10/20 25 01/10/2025 CBC WITH DIFFE RENTI AL/PL ATELE T baso (absolute) 0.0 x10e3 /uL 0.0-0. 2 normal Not Available [facility] ([facility]) [address], [place], [address], 01/19/2025 08:36:16 01/10/20 25 01/10/2025 CBC WITH DIFFE RENTI AL/PL ATELE T immature granulocytes 0 % not estab. Not Available [facility] ([facility]) [address] [place], [address], 01/19/2025 08:36:16 01/10/20 25 01/10/2025 CBC WITH DIFFE RENTI AL/PL ATELE T immature grans (abs) 0.0 x10e3 /uL 0.0-0. 1 Not Available [facility] ([facility]) [address], [place], [address], 01/19/2025 08:36:16 01/10/20 25 01/10/2025 CBC WITH DIFFE RENTI AL/PL ATELE T NRBC HOST Not Available [facility] ([facility]) [address], [place], [address], 01/19/2025 08:36:16 01/10/20 25 01/10/2025 CBC WITH DIFFE RENTI AL/PL ATELE T hematology comments: HOST Not Available [facility] ([facility]) [address], [place], [address], 01/19/2025 08:36:16 01/10/20 25 01/10/2025 COMP. METAB OLIC PANEL (14) glucose 74 mg/dL 70-99 normal Not Available [facility] ([facility]) [address] [place], [address], 01/19/2025 08:36:18 01/10/20 25 01/10/2025 COMP. METAB OLIC PANEL (14) BUN 12 mg/dL 6-20 normal Not Available [facility] ([facility]) [address] [place], [address], 01/19/2025 08:36:18 01/10/20 25 01/10/2025 COMP. METAB OLIC PANEL (14) creatinine 0.60 mg/dL 0.57-1 .00 normal Not Available [facility] ([facility]) [address] [place], [address], 01/19/2025 08:36:18 01/10/20 25 01/10/2025 COMP. METAB OLIC PANEL (14) eGFR 123 mL/mi n/1.7 3 >59 normal Not Available [facility] ([facility]) [address] [place], [address], 01/19/2025 08:36:18 01/10/20 25 01/10/2025 COMP. METAB OLIC PANEL (14) BUN/creatini ne ratio 20 9-23 normal Not Available [facility] ([facility]) [address] [place], [address], 01/19/2025 08:36:18 01/10/20 25 01/10/2025 COMP. METAB OLIC PANEL (14) sodium 139 mmol/ L 134-14 4 normal Not Available [facility] ([facility]) [address], [place], [address], 01/19/2025 08:36:18 01/10/20 25 01/10/2025 COMP. METAB OLIC PANEL (14) potassium 4.1 mmol/ L 3.5-5. 2 normal Not Available [facility] ([facility]) [address] [place], [address],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 deficiency 347 09466 E55.9 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 [id number] Shemar Denton DO [facility] [address] [facility] [address] [place] [address] 08/31/2022 07:59:30 08/31/2022 13:37:08 Morbid obesity 324497047 E66.01 Pre-surger y evaluation 778135748 Z01.818 Postoperative pain 35214 9007 G89.18 Polycystic ovary syndrome 687524084 E28.2 [id number] Angelito Estrada DNP, DUONG, HOST-C [facility] [address] [facility] [address] [place] [address] 09/27/2022 08:10:32 09/27/2022 11:44:36 Polycystic ovary syndrome 257225562 E28.2 Vitamin D deficiency 347 67820 E55.9 Hypothyroidism 33107331 E03.9 [id number] Nadia Drummond MD [facility] [address] [facility] [address] [place] [address] 10/03/2022 13:00:09 10/03/2022 13:22:35 Upper respiratory infection 09418166 J06.9 History of bariatric surgical procedure 344085589 Z98.84 Anxiety 28696107 F41.9 Mood disorder 81984948 F 39 [id number] Cecilia Bowman DNP, HOST-C, DEPARTMENT SALES MANAGER [facility] [address] [facility] [address] [place] [address] 10/05/2022 16:13:19 10/05/2022 17:31:36 Pain in throat 425915377 R07.0 Upper resp iratory infection 88719591 J06.9 [id number] Angelito Estrada DNP, APRN, HOST-C [facility] [address] [facility] [address] [place] [address] 10/18/2022 11:38:25 10/18/2022 12:04:21 History of bariatric surgical procedure 187404339 Z98.84 History of gastrectomy 618165636 Z90.3 Patient is status post bariatric surgery and at increased risk for vitamin deficienci es and malnutriti on. Bariatric vitamin panel ordered today. Patient will be contacted to correct any vitamin deficienci es. Polycystic ovary syndrome 203830471 E28.2 Vitamin D deficiency 347 52284 E55.9 Acquired hypothyroidism 339853916 E03.9 Essential hypertension 03813120 I10 Hypothyroidism 30437623 E03.9 Mixed hyperlipidemia 267 112946 E78.2 Morbid obesity 436110854 E66.01 Intentiona l weight loss 794458556 R63.8 [id number] Angelito Estrada DNP, DUONG, HOST-C [facility] [address] [facility] [address] [place] [address] 12/19/2022 11:38:41 12/19/2022 12:48:51 History of bariatric surgical procedure 617638987 Z98.84 History of gastrectomy 549559363 Z90.3 Patient is status post bariatric surgery and at increased risk for vitamin deficienci es and malnutriti on. Bariatric vitamin panel ordered today. Patient will be contacted to correct any vitamin deficienci es. Polycystic ovary syndrome 671489568 E28.2 Acquired hypothyroidism 113720831 E03.9 Essential hypertension 32846982 I10 Hypothyroidism 56806402 E03.9 Intentiona l weight loss 132758264 R63.8 Mixed hyperlipidemia 267 842602 E78.2 Morbid obesity 843114199 E66.01 [id number] Angelito Estrada DNP, DUONG, HOST-C [facility] [address] [facility] [address] [place] [address] 03/28/2023 12:54:58 03/28/2023 13:36:10 History of bariatric surgical procedure 580382774 Z98.84 Advised qid intake 50% protein 2756-9278 calories/d y less than 100 carbs/dy Long discussion today of InBody results including PBF(percen t body fat) SMM (skeletal muscle mass) Visceral fat level level BMR Segmental Fat Analysis and Segmental Lean Analysis. Patient encouraged pt to take minimal calories as per BMR and to anticipate changes in SMM and PBF values not just total weight. Repeat SILVIA in 2-3mth suggested Patient is to have bariatric vitamin lab panel. [...] patient with any deficienci es. Pt will see dietitian today. History of gastrectomy 293516927 Z90.3 Patient is status post bariatric surgery and at increased risk for vitamin deficienci es and malnutriti on. Bariatric vitamin panel ordered today. Patient will be contacted to correct any vitamin deficienci es. Heartburn 12442301 R12 Hypothyroidism 33103639 E03.9 Mixed hyperlipidemia 267 351990 E78.2 Obesity 400343481 E66.9 Vitamin D deficiency 347 35243 E55.9 Polycystic ovary syndrome 848141292 E28.2 Acquired hypothyroidism 823612494 E03.9 Essential hypertension 93281487 I10 [id number] Angelito Estrada, DNP, DEPARTMENT SALES MANAGER, HOST-C [facility] [address] [place] [address] 02/19/2024 10:07:23 02/19/2024 11:56:17 History of bariatric surgical procedure 391905699 Z98.84 Advised qid intake 50% protein 2275-0172 calories/d y less than 100 carbs/dy Long discussion today of InBody results including PBF(percen t body fat) SMM (skeletal muscle mass) Visceral fat level level BMR Segmental Fat Analysis and Segmental Lean Analysis. Patient encouraged pt to take minimal calories as per BMR and to anticipate changes in SMM and PBF values not just total weight. Repeat SILVIA in 2-3mth suggested Patient is to have bariatric vitamin lab panel. [...] patient with any deficienci es. Pt will see dietitian today. Intentiona l weight loss 545756413 R63.8 History of gastrectomy 332527199 Z90.3 Advised qid intake 50% protein 3849-5803 calories/d y (I did encourage her to increase calories by 300 since she is breastfeed ing). less than 100 carbs/dyLo ng discussion today [...] contacted to correct any vitamin deficienci es. Acquired hypothyroidism 424349364 E03.9 Essential hypertension 80829174 I10 Mixed hyperlipidemia 267 716598 E78.2 Fatigue 64030194 R53.[id number], LD [facility] [address] [facility] [address] [place] [address] 02/19/2024 10:49:51 02/19/2024 12:53:58 Morbid obesity 344354642 E66.01 BMI 27.1 wt loss 78.8# Dietary ma nagement surveillance 600110563 Z71.3 [id number] Nadia Drummond MD [facility] [address] [place] [address] 04/03/2024 10:13:26 04/03/2024 11:17:24 Adult health examination 861689665 Z00.00 Diabetes m ellitus screening 977749655 Z13.1 a1c WNL Hyperlipid emia screening 057294001 Z13.220 lipid panel WNL Gastroesop hageal reflux disease 290410456 K21.01 will discuss patient with bariatrics to see if EGD is an option to assess given her sx during and continued worsening reflux presently. Pt is on PPI and h2 batsheva, consider possible dose increase but will discuss case first. Iron defic iency anemia 04938794 D50.9 she may tolerate ritual post-patricia vitamins and will give these a try and she will give me an update Renal mass 678496199 N28 .89 CT [facility] reviewed, was reviewed and closed by bariatrics discussed with pt, prefers to proceed with MRI at this time depression 58 801117 F53.0 doing well on sertraline [id number] Angelito Estrada, DNP, DEPARTMENT SALES MANAGER, HOST-C [facility] [address] [facility] [address] [place] [address] 01/09/2025 13:18:37 01/09/2025 14:17:30 History of bariatric surgical procedure 468488593 Z98.84 Advised qid intake 50% protein 4443-8346 calories/d y less than 100 carbs/dyLo ng [...] I did michael. Intentiona l weight loss 463646236 R63.8 History of gastrectomy 020518501 Z90.3 Advised qid intake 50% protein 2496-7007 calories/d y less than 100 carbs/dyLo ng [...] to correct any vitamin deficienci es. [facility] of nutritional deficit 256735183 Z91.89 Acquired hypothyroidism 694256343 E03.9 Essential hypertension 82867666 I10 Mixed hyperlipidemia 267 854833 E78.2 Heartburn 39368873 R12 We will follow-up in 1 month regarding symptom management . If symptoms persist will plan on getting at least upper GI with possible EGD with dilatation . Obesity 683207274 E66.9 we will follow up in 1 month. As long as she is doing well with no symptoms we will increase to 5 mg weekly. Patient was given realistic expectatio ns regarding medication regimen. [id number] Angelito Estrada DNP, DUONG, HOST-C [facility] [address] [place] [address] [address] [place] [address] 02/06/2025 14:54:48 02/06/2025 15:04:46 History of bariatric surgical procedure 643201638 Z98.84 Advised qid intake 50% protein 8421-2569 calories/d y less than 100 carbs/dy Intentiona l weight loss 754753364 R63.8 History of gastrectomy 829992762 Z90.3 Advised qid intake 50% protein 2091-2709 calories/d y less than 100 carbs/dy At [facility] risk of nutritional deficit 119681985 Z91.89 Acquired hypothyroidism 600256370 E03.9 Essential hypertension 05676933 I10 Mixed hyperlipidemia 267 450434 E78.2 Obesity 570844823 E66.9 we will follow up in 1 [...] smartphone . Provider (Angelito Estrada, MATTHEW, DUONG, HOST-C) location was [facility] [address] [place] [address], [address] in [place], [place]. Patient location: her workplace Patient gave [...] of hand washing and social distancing . [id number] Angelito Estrada, MATTHEW, DUONG, HOST-C [facility] [address] [place] [address] [address] [place] [address] 03/06/2025 13:51:19 03/06/2025 14:15:10 History of bariatric surgical procedure 185458870 Z98.84 Advised qid intake 50% protein 2502-9164 calories/d y less than 100 carbs/dyTo days visit was performed with AUDIO ONLY per patient request. Patient could not be seen utilizing audio/vide o or in person due to patient being in [place], [place], thus this visit was performed at patients request. Reason visit was not performed by video is due to patient not having access to smartphone . Provider (Angelito Estrada, MATTHEW, DUONG, HOST-C) location was [facility] [address] [place] [address], [address] in [place], [place]. Patient location: work. Patient gave informed [...] social distancing . Intentiona l weight loss 036783517 R63.8 History of gastrectomy 880093495 Z90.3 Advised qid intake 50% protein 3243-6742 calories/d y less than 100 carbs/dy Follow-up with Repeat SILVIA in 3mth suggested .. At [facility] risk of nutritional deficit 420918448 Z91.89 Acquired hypothyroidism 045969514 E03.9 Obesity 572834936 E66.9 we will follow up in 1 month. I will increase to 7.5 mg weekly. Patient was given realistic expectatio ns regarding medication regimen. Health Concerns Section Related Observation LastModified by Organization Detai ls LastModified Time None Recorded Concern Status LastModified by Organization Details LastModified Time None Recorded Advance Directives Directive N: Payers Insurance Date Sequence Insurance Name Policy Number Policy Wilson Covered Member ID Wilson Member ID Guarantor Name 07/30/2019 1 [place] [id number] Jeremiah B Deal [id number] [email or web address] Deal 03/06/2025 1 [place] [id number] A Jeremiah Gallego Deal [id number] Pam Yeni Deal 01/24/2022 2 [facility]-[place] (MEDICA[place] REPLAC[place] - [place]) [id number] Pam B Deal [id number] Pam Yeni Deal 04/08/2021 2 MEDICAID-[facility] CHOICES - FFS/TRADITIONA L Pam B Deal [id number] [employer] [employer] Deal Notes Date Note Type Note Provider Name and Address Organization Details Recorded Time 02/19/2024 text/html Patient presents the office today for routine follow-up status post bariatric gastric sleeve gastrectomy surgery (2021). Patient doing well. Reports q.i.d. small meal intake. Reports Has not been counting g/dy protein intake and good hydration.Patient is drinking 64 ounces of water a day.Daily Calories has not been counting. was n0t able to eat much durin her pregnancyTaking routine vitamins as advised.Heartburn/gas troesophageal reflux: deniesPt Denies : abdominal pain, prandial issues Nausea, Vomiting, bowel or bladder issues. Total Weight loss Since last office visit has been 29.8 lbsPt is happy with their quality of life after Weight loss Surgery.Patient just delivered her 2nd baby on January 05, 2024. She has not seen her PCP recently but did see her corrugator machine operator at the end of October.Today's InBody reveals a skeletal muscle mass =58.9 lb,body fat mass = 53.9 lb,BMI =Percent body fat = 27.1Basal Metabolic Rate = 1435 kilo calories Angelito Estrada, DNP, DEPARTMENT SALES MANAGER, HOST-C [address], [place], [address], [facility] [place] [facility] [place] 02/19/2024 11:11:08 02/19/2024 text/html ADIME TemplateA: KURTISN met w/Pam Phillips for f/up via office visit s/p Sleeve. Pt weight at MD Consult: 241.4#Current Weight: 162.6#Total Weight Change: -78.8#Notes on weight: Signs/SymptomsN/V/C/D : nausea due to kidney infection Pertinent Labs/Meds/Vitamin regimen: taking vitamins Physical activity: walking Tracking food/beverages consumed: Not tracking Est. daily kcal intake: Est. daily protein intake: Est. daily fluid intake: Meal Pattern: eating 4 times a day Additional notes/concerns: Pt following up post . She states she had hyperemesis with . Baby is now 6 weeks old. Patient is now taking vitmain and able to eat and drink. Discussed keeping food records and working on increasing protein to 90 gm/day and kcal to 1700 kcal/day to account for . Patient is doing well with fluids at this time. Labs were drawn today. I: RDN Recommendations/Goals :1. Eat 3 meals a day and 2-3 snacks a day2. Increase kcal to 1700 kcal/day and 90 gm/pro per day3. Start keeping food records and continue taking vitamins Pt verbally agreed to recommendations and goals. Denied further questions/concerns. M/E: RD will monitor weight loss, labs, and lifestyle modifications. Will f/up as scheduled or PRN. . TABITHA GARCIA RD, LD [address], [place], [address], [facility] [place] [facility] [place] 02/19/2024 11:14:09 04/03/2024 text/html Patient is here for yearly check up and follow up.Last dental visit: Aug 2023Last eye exam: last month Tdap vaccine: Oct 2023Flu vaccine: due in the callCovid vaccine: 2 doses completed mammogram: no family hx in first degree, not yet due for screeningColon cancer screening:no family hx of colon cancerDexa: not yet due for screeningPap smear: Oct 2022, WNL HLP screening: WNL in FebruaryM Screening: a1c 5.1 in February 2024HTN screening: WNL Diet: currently , struggling with getting in enough protein. She does have some intake but is concerned about vomiting and her reflux issues.Exercise: She is active with walking and playing outside with her children, she has treadmill that she plans to use when her infant is on a schedule. Mood: she did have some depression and is doing well on current dose of zoloft managed by sueding and buffing machine operator. Safety: pt wears seat belt, has smoke detectors in home, feels safe at home. SHe is currently 3 months . She notes complicated course of hyperemesis throughout the course of and has had continued reflux issues. She does also note some hematemesis. She last had vomiting in early February during a viral GI illness. She notes that her pre- weight was 186, during the she went down to 176 and was 186 when she delivered and post deliver weight was 162 which she has maintained. SHe has hypothyroidism and following with endo for this. Her recent labs were normal. SHe has iron def and is not currently using replacement. She does have patches but hasn't been using them. She was noted to be mildly anemic on labs with hemoglobin of 10.4. She had a CT ab/pelvis at [facility] on 02/16 that showed a possible area of the left kidney that radiology recommended further imaging, MRI or US. Pt would like to proceed with MRI. Nadia Drummond MD [address], [place], [address], [facility] [place] [facility] [place] 04/03/2024 13:07:35 01/09/2025 text/html Patient presents the office today for routine follow-up status post bariatric gastric sleeve gastrectomy surgery (2021 ). Patient doing well. Reports q.i.d. small meal intake. Reports 90-100g/dy protein intake and good hydration.Patient is drinking 64 ounces of water a day.Daily Calories 1400Taking routine vitamins as advised.Heartburn/gas troesophageal reflux: is worse at night. Has been taking PPI once a day.Pt Denies : abdominal pain, prandial issues Nausea, Vomiting, bowel or bladder issuesTotal Weight gain Since last office visit has been 10.4 lbsPt is happy with their quality of life after Weight loss Surgery.patient has struggled with weight gain since delivering baby. She also noticed weight gain since .Today's InBody reveals a skeletal muscle mass = 62.0 lb,body fat mass = 61.0 lb,BMI = 28.8Percent body fat = 35.2Basal Metabolic Rate = 1468 kilo calories Angelito Estrada DNP, DUONG, HOST-C [address], [place], [address], [facility] & [place] 01/09/2025 14:21:06 02/06/2025 text/html Patient presents the office today [...] a day.Daily Calories 1150Taking routine vitamins as advised.Heartburn/gas troesophageal reflux: deniesPt Denies : abdominal pain, prandial issues Nausea, Vomiting, bowel or bladder issuesTotal Weight loss Since last office visit has been 10 lbsPt is happy with their quality of life after Weight loss Surgery. Today's InBody not done due to this being a telehealth appt Angelito Estrada DNP, APRN, HOST-C [address], [place], [address], [facility] [place] 02/06/2025 15:12:51 03/06/2025 text/html Patient presents the office today [...] a day.Daily Calories 1200Taking routine vitamins as advised.Heartburn/gas troesophageal reflux: deniesPt Denies : abdominal pain, prandial issues Nausea, Vomiting, bowel or bladder issuesTotal Weight loss Since last office visit has been 9 lbsPt is happy with their quality of life after Weight loss Surgery. Today's InBody not performed due to this being a telehealth appt Angelito Estrada, DNP, DEPARTMENT SALES MANAGER, HOST-C [address] [facility], [place], [address], [facility] [place] [facility] [place] 03/06/2025 14:12:43 OBGyn Episode No OBEpisode recorded.
== END 2025-03-25 23:59 | disposition home or self-care (01) ==
LOC: RAD 13:14
PROVIDERS: PCP Family Medicine; Visit Provider Physician Assistant Surgical
DX: M25.561 Pain in right knee (principal)
CPT/HCPCS: 73562

== ENCOUNTER 2025-04-24 17:06 | Emergency (ER) | payer BC, SELFPAY ==
--- OUTSIDE RECORDS SUMMARY | 2025-04-08 14:00 | XMS_ITS | Encounter Summary ---
Author Organization Healthcare Address [address] [place] [address] Care Team Providers Care Product Test Specialist Name Role Phone Nadia Goodson MD Primary Care Provider [phone] Reason for Visit * Reason Comments PRODUCE MANAGER US Pt doing good Encounter Details Date Type Department Care Team (Late st Contact Info) Description 04/08/2025 2:00 PM EDT Office Visit Obstetrics & Gynecology [address] [place] [address] Tres Ybarra MD [address] [place] [address] Irregular menstruation, unspecified (Primary Dx); Encounter for preconception consultation Social History Tobacco Use Types Packs/Day Years Used Date Smoking Tobacco: Never Smokeless Tobacco: Never Tobacco Cessation:Counseling Given: Not Answered Alcohol Use Standard Drinks/Week Comments No 0 (1 standard drink = 0.6 oz pur e alcohol) PHQ-2 Answer Date Recorded Patient Health Questionnaire-2 Score 0 04/08/2025 [place] Depression Scale Answer Date Recorded [place] Depression Scale Total 0 02/23/2024 The thought of harming myself has occurred to me . Never 02/23/2024 PHQ-9 Answer Date Recorded Patient Health Questionnaire-9 Score 0 02/06/2025 PHQ-2A Answer Date Recorded Patient Health Questionnaire-2 Score 0 10/05/2023 Comments No Sex and Gender Information Value Date Recorded Sex Assigned at Not on file Legal Sex Female 6:35 PM EDT Gender Identity Not on file Sexual Orientation Not on file documented as of this encounter Last Filed Vital Signs Vital Sign Reading Time Taken Comments Blood Pressure 122/78 04/08/2025 2:12 PM EDT Pulse 80 04/08/2025 2:12 PM EDT Temperature - - Respiratory Rate 20 04/08/2025 2:12 PM EDT Oxygen Saturation 98% 04/08/2025 2:12 PM EDT Inhaled Oxygen Concentration - - Weight 67.3 kg (148 lb 5.9 oz) 04/08/2025 2:12 P M EDT Height 160 cm (5' 3 ) 04/08/2025 2:12 PM EDT Body Mass Index 26.28 04/08/2025 2:12 PM EDT documented in this encounter Functional Status * Over the past 2 weeks, how often have you been bothered by any of the following problems? Question Answer Date of Assessment Author Little interest or pleasure in doing things Not at all 04/08/2025 2:15 PM EDT Emily Oleary Feeling down, depressed, or hopeless Not at all 04/08/2025 2:15 PM EDT Emily Oleary Patient Health Questionnaire -2 Score 0 04/08/2025 2:15 PM EDT Emily Oleary documented as of this encounter Miscellaneous Notes * Progress Notes - Tres Ybarra MD - 04/08/2025 2:00 PM EDT Gynecology Note Subjective Pam Deal is a 29 y.o. ( x 2) here for a f/u gynecology visit. LPS 02/2025 - wnl Periods irregular - varies 20-35 days - 7-8 d VB Today is Day 13 Desires - H/O Femara use PNV No b/b/b issues No 1st degree FMHx of female cancers For PRODUCE MANAGER TVUS + plan today. The following chart sections have been reviewed and updated: Tobacco Allergies Meds Med Hx Surg Hx OB Status Fam Hx Review of Systems Constitutional: Negative. HENT: Negative. Eyes: Negative. Respiratory: Negative. Cardiovascular: Negative. Gastrointestinal: Negative. Endocrine: Negative. Genitourinary: Positive for menstrual problem. Musculoskeletal: Negative. Skin: Negative. Allergic/Immunologic: Negative. Neurological: Negative. Hematological: Negative. Psychiatric/Behavioral: Negative. All other systems reviewed and are negative. Objective Visit Vitals BP 122/78 Pulse 80 Resp 20 Body mass index is 26.28 kg/m??. Physical Exam Constitutional: Appearance: Normal appearance. She is normal weight. Genitourinary: Vulva normal. Right Labia: No rash, tenderness, lesions or skin changes. Left Labia: No tenderness, lesions, skin changes or rash. Pelvic exam was performed with patient in the lithotomy position. HENT: Head: Normocephalic and atraumatic. Right Ear: External ear normal. Left Ear: External ear normal. Pulmonary: Effort: Pulmonary effort is normal. Abdominal: General: Abdomen is flat. Palpations: Abdomen is soft. Musculoskeletal: General: Normal range of motion. Cervical back: Normal range of motion. Neurological: General: No focal deficit present. Mental Status: She is alert and oriented to person, place, and time. Skin: General: Skin is warm and dry. Psychiatric: Mood and Affect: Mood normal. Behavior: Behavior normal. Thought Content: Thought content normal. Judgment: Judgment normal. Vitals and nursing note reviewed. Exam conducted with a printed products assembler present. PRODUCE MANAGER TVUS WNL with right 16 mm dominant follicle Assessment Assessment & Plan Irregular menstruation, unspecified Orders: US Pelvis Transvaginal; Future Encounter for preconception consultation Discussed PRODUCE MANAGER TVUS findings - reassurance Check D22 PROG + TSH/Free T4 + CBC Probable RX for Femara s/p labs soon PNV Voices agreement A total of 22 minutes was spent on this visit with at least more than 50% of the encounter spent incounseling and/or coordinating care including reviewing previous notes, counseling the patient on their identified issues as indicated in the note, discussing previous and/or ordered tests or imaging, prescribing/refilling medications, and documenting the findings in this note, as well as laying out a specific plan of action for this patient. documented in this encounter Plan of Treatment Upcoming Encounters Date Type Department Care Team (Late st Contact Info) Description 02/09/2026 8:45 AM EDT Procedure Visit Obstetrics & Gynecology [address] [place] [address] Tres Ybarra MD [address] [place] [address] documented as of this encounter Results * US Pelvis Transvaginal (04/08/2025 2:12 PM EDT) Anatomical Region Laterality Modality Pelvis Ultrasound 04/08/2025 2:20 PM EDT Impressions 04/08/2025 2:24 PM EDT The OB Ultrasound you requested has been resulted. Please navigate to the Imaging tab in [employer] for review. This message has been generated by the interface. Narrative Procedure Note Tres Ybarra MD - 04/08/2025 IMPRESSION: The OB Ultrasound you requested has been resulted. Please navigate to theImaging tab in [employer] for review. This message has been generated by theinterface. us Tres Ybarra MD IMG US PROCEDURES Final Result documented in this encounter Visit Diagnoses Diagnosis Irregular menstruation, unspecified- Primary Encounter for preconception consultation Irregular menstruation, unspecified documented in this encounter Additional Health Concerns Assessment Noted Time PHQ-9 Depression Total Score: 0 02/07/20 25 8:10 AM EDT A fall risk assessment has been complete d for the patient 04/08/2025 2:16 PM EDT A Body Mass Index follow-up plan has been documented for the patient 04/08/2025 2:27 PM EDT documented as of this encounter Care Teams Product Test Specialist Relationship Specialty Start Date End Date Nadia Goodson MD [address] [place] [address] PCP - General 01/17/23 documented as of this encounter
--- OUTSIDE RECORDS SUMMARY | 2025-04-08 14:15 | XMS_ITS | Encounter Summary ---
Author Organization Healthcare Address [address] [facility] [place] [address] Care Team Providers Care Second Miller Name Role Phone Nadia Goodson MD Primary Care Provider [phone] Encounter Details Date Type Department Care Team (Latest Contact Info) Description 04/08/2025 2:15 PM EDT Ancillary Procedure Obstetrics & Gynecology [address] [place] [address] Irregular menstruation, unspecified Social History Tobacco Use Types Packs/Day Years Used Date Smoking Tobacco: Never Smokeless Tobacco: Never Alcohol Use Standard Drinks/Week Comments No 0 (1 standard drink = 0.6 oz pur e alcohol) PHQ-2 Answer Date Recorded Patient Health Questionnaire-2 Score 0 04/08/2025 [place] Depression Scale Answer Date Recorded [place] Depression Scale Total 0 02/23/2024 The thought [...] EDT Procedure Visit Obstetrics & Gynecology [address] [place] [address] Tres Ybarra MD [address] [place] [address] documented as of this encounter [...] Please navigate to the Imaging tab in [employer] for review. This message has been generated by the interface. Narrative Procedure Note Tres Ybarra MD - 04/08/2025 IMPRESSION: The OB Ultrasound you requested has been resulted. Please navigate to theImaging tab in [employer] for review. This message has been generated by theStorymix Mediaface. us Tres Ybarra MD IMG US PROCEDURES [...] documented as of this encounter Care Teams Second Miller Relationship Specialty Start Date End Date Nadia Goodson MD [address] [place] [address] PCP - General 01/17/23 documented as of this encounter
--- OUTSIDE RECORDS SUMMARY | 2025-04-17 10:00 | XMS_ITS | Encounter Summary ---
Author Organization Healthcare Address [address] [place] [address] Care Team Providers Care Double Bass Player Name Role Phone Nadia Goodson MD Primary Care Provider [phone] Reason for Visit * Reason Comments Labs Only Pt here for labs, on e stick, tolerated well. Encounter Details Date Type Department Care Team (Latest Contact Info) Description 04/17/2025 10:00 AM EDT Clinical Support Obstetrics & Gynecology [facility] [place] [address] Irregular menstruation, unspecified (Primary Dx) Social History Tobacco Use Types Packs/Day Years Used Date Smoking Tobacco: Never Smokeless Tobacco: Never Alcohol Use Standard Drinks/Week Comments No 0 (1 standard drink = 0.6 oz pur e alcohol) PHQ-2 Answer Date Recorded Patient Health Questionnaire-2 Score 0 04/08/2025 [place] Depression Scale Answer Date Recorded [place] Depression Scale Total 0 02/23/2024 The thought [...] EDT Procedure Visit Obstetrics & Gynecology [address] [place] [address] Trse Ybarra MD [address] [place] [address] documented as of this encounter [...] not established ng/mL 04/17/2025 8:23 PM EDT [facility] Blood Venous blood specimen / Unknown Venipuncture / Unknown 04/17/2025 10:40 AM EDT 04/17/2025 5:56 PM EDT Narrative [facility] - 04/17/2025 8:23 PM EDT Menstrual Cycle Phase Reference Intervals: Females, 18 Y and up (ng/mL) Follicular <= 0.33 Ovulation <= 2.35 Luteal 0.5-21 Post-Menopausal <0.2 reference Intervals (ng/mL): 1st Trimester 11 - 45 2nd Trimester 25 - 84 3rd Trimester 58 - 214 us Tres Ybarra MD LAB BLOOD ORDERABLES Final [place]u [place] [address] * Thyroid Stimulating Hormone, Plasma (04/17/2025 10:40 AM EDT) Thyroid Stimulating Hormone, Plasma 2.90 0.40 - 4.20 uIU/mL 04/17/2025 6:39 PM EDT [facility] Blood Venous blood specimen / Unknown Venipuncture / Unknown 04/17/2025 10:40 AM EDT 04/17/2025 5:57 PM EDT Narrative [facility] - 04/17/2025 6:39 PM EDT Trimester Specific Ranges TSH ( IU/mL) 1st Trimester 0.1 - 3.0 2nd Trimester 0.19 - 4.06 3rd Trimester 0.3 - 3.7 Result Mary Ybarra MD LAB BLOOD ORDERABLES Final Resu lt Performing Organization Address City/[facility] [place] [address] * Free T4, Plasma (04/17/2025 10:40 AM EDT) Free T4, Plasma 1.2 0.8 - 1.7 ng/dL 04/17/2025 6:39 PM EDT [facility] Blood Venous blood specimen / Unknown Venipuncture / Unknown 04/17/2025 10:40 AM EDT 04/17/2025 5:57 PM EDT Narrative [facility] - 04/17/2025 6:39 PM EDT Free T4 Trimester Specific Ranges 1st Trimester 0.9 - 1.50 ng/dL 2nd Trimester 0.7 - 1.40 ng/dL 3rd Trimester 0.7 - 1.24 ng/dL Result Mary Ybarra MD LAB BLOOD [place]AB[place] [address] documented in this encounter Visit Diagnoses Diagnosis [...] documented as of this encounter Care Teams Double Bass Player Relationship Specialty Start Date End Date Nadia Goodson MD [address] [place] [address] PCP - General 01/17/23 documented as of this encounter
[2025-04-24] VITALS (8 sets, daily range): BP systolic 107–128; BP diastolic 67–87; PULSE 84–125; RESP 16–19; TEMP 36.6–36.9; O2SAT 99–100; BMI 23.3
--- NOTE | 2025-04-24 17:16 | ECG_ITS ---
APPROVED REPORT Exam: Resting ECG HR:108 bpm ECG Measurements Heart Rate 108 AXES AZ 128 P 63 QRSd 93 QRS 33 QT 326 T 36 QTc 390 Conclusion SINUS TACHYCARDIA NONSPECIFIC ST & T-WAVE ABNORMALITY ABNORMAL RHYTHM ECG Electronically signed by : JANICE MARIE, 04/24/2025 23:40:52
--- NOTE | 2025-04-24 17:27 | XR_ITS ---
PROCEDURE INFORMATION: Exam: XR Chest Exam date and time: 04/24/2025 5:49 PM Age: 29 years old Clinical indication: Shortness of breath; Additional info: Soa/cp TECHNIQUE: Imaging protocol: Radiologic exam of the chest. Views: 1 view. COMPARISON: CR XR CHEST 2V 06/28/2020 9:47 PM FINDINGS: Lungs: Right midlung calcified nodule unchanged from prior exam measuring 9 mm. No consolidations. Pleural spaces: Unremarkable. No pleural effusion. No pneumothorax. Heart/Mediastinum: Unremarkable. No cardiomegaly. Bones/joints: Unremarkable. IMPRESSION: No acute findings.
--- OUTSIDE RECORDS SUMMARY | 2025-04-24 17:27 | XMS_ITS | Encounter Summary ---
Author Organization [employer] Address [address] [place] [address] Care Team Providers Care Flight Line Mechanic Name Role Phone Unavailable Primary Care Provider Unavailabl e Encounter Details Date Type Department Care Team (Late st Contact Info) Description 09/24/2019 Transcribed Document [facility] Family Medicine [address] [place] [address] ProviderLeón MD [facility] [place], [place] [address] Social History Tobacco Use Types Packs/Day Years Used Date Smoking Tobacco: Never Assessed Comments Unknown Sex and Gender Information Value Date Recorded Sex Assigned at Not on file Legal Sex Female 6:09 PM CDT Gender Identity Not on file Sexual Orientation Not on file documented as of this encounter Miscellaneous Notes * Cerner Conversion Note - León ProviderMD - 09/24/2019 8:33 AM PLATE MOUNTER Pain Assessment Entered On: 09/24/2019 9:40 EST Performed On: 09/24/2019 9:40 EST by GENTRY CLARK RN Intervention Information: ibuprofen Performed by GENTRY CLARK RN on 09/24/2019 08:39:00 EST ibuprofen,600mg Oral Pain Assessment Pain Assessment : Follow-up assessment Pain Improved by Intervention : Yes GENTRY CLARK RN - 09/24/2019 9:40 EST documented in this encounter Plan of Treatment Not on file documented as of this encounter Visit Diagnoses Not on filedocumented in this encounter
--- OUTSIDE RECORDS SUMMARY | 2025-04-24 17:27 | XMS_ITS | Encounter Summary ---
Author Organization [facility] Address [address] [place] [address] Care Team Providers Care End Maker Name Role Phone Nadia Goodson MD Primary Care Provider [phone] Encounter Details Date Type Department Care Team (Latest Contact Info) Description 04/08/2025 Travel Social History Tobacco Use Types Packs/Day Years Used Date Smoking Tobacco: Never Smokeless Tobacco: Never Alcohol Use Standard Drinks/Week Comments No 0 (1 standard drink = 0.6 oz pur e alcohol) PHQ-2 Answer Date Recorded Patient Health Questionnaire-2 Score 0 04/08/2025 [place] Depression Scale Answer Date Recorded [place] Depression Scale Total 0 02/23/2024 The thought [...] EDT Procedure Visit Obstetrics & Gynecology [address] [place] [address] Tres Ybarra MD [address] [place] [address] documented as of this encounter Visit Diagnoses Not on filedocumented in this encounter Additional Health Concerns Assessment Noted Time PHQ-9 Depression Total Score: 0 02/07/20 25 8:10 AM EDT A fall risk assessment has been complete d for the patient 04/08/2025 2:16 PM EDT A Body Mass Index follow-up plan has been documented for the patient 04/08/2025 2:27 PM EDT documented as of this encounter Care Teams End Maker Relationship Specialty Start Date End Date Nadia Goodson MD [address] [place] [address] PCP - General 01/17/23 documented as of this encounter
--- OUTSIDE RECORDS SUMMARY | 2025-04-24 17:27 | XMS_ITS | Encounter Summary ---
Author Organization [employer] Address [address] [place] [address] Care Team Providers Care Weigh Machine Operator Name Role Phone Unavailable Primary Care Provider Unavailabl e Encounter Details Date Type Department Care Team (Late st Contact Info) Description 11/25/2020 Transcribed Document [facility] Family Medicine [facility] [place] [address] ProviderLeón MD [address] [place] [address] Social History Tobacco Use Types Packs/Day Years Used Date Smoking Tobacco: Never Assessed Comments Unknown Sex and Gender Information Value Date Recorded Sex Assigned at Not on file Legal Sex Female 6:09 PM CDT Gender Identity Not on file Sexual Orientation Not on file documented as of this encounter Miscellaneous Notes * Cerner Conversion Note - León ProviderMD - 11/25/2020 10:52 AM BIBLICAL STUDIES PROFESSOR ED Assessment Entered On: 11/25/2020 14:03 EST Performed On: 11/25/2020 14:01 EST by LALI SEAY RN ED Quick Look Assessment Level of Consciousness : Alert, Awake Affect/Behavior : Appropriate, Calm, Cooperative Orientation : Oriented x 4 Skin Temperature : Warm Skin Description : Dry, [place] LALI SEAY RN - 11/25/2020 14:01 EST ED General-Functional Assess Information Obtained From : Patient Preferred Communication Mode : Verbal Communication Barrier : None Primary Language : Kenyan Any Spiritual/Cultural Needs or Requests : No Currently in Unsafe Situation : No LALI SEAY RN - 11/25/2020 14:01 EST Social Habits Smoking Status : Never (less than 100 in lifetime; none in last 30 days) Smokeless Tobacco Status : Never Desires Tobacco Cessation Calc : 0 LALI SEAY RN - 11/25/2020 14:01 EST Social History (As Of: 11/25/2020 14:03:37 EST) Tobacco: Smoking Status Never smoker. (Last Updated: 12/23/2017 14:17:18 EST by ETTA DONALD RN) Alcohol: Alcohol Use History No. (Last Updated: 12/23/2017 14:17:20 EST by ETTA DONALD RN) Substance Abuse: Drug Use Hx: No. (Last Updated: 12/23/2017 14:17:24 EST by ETTA DONALD, RN) Gastrointestinal ED Gastrointestinal Assessment WDL : WDL LALI SEAY RN - 11/25/2020 14:01 EST Genitourinary Assessment, ED Last Menstrual Period : 09/14/2020 EST LALI SEAY RN - 11/25/2020 14:01 EST Neurologic ASMT, ED Neurologic Assessment WDL : WDL with exceptions Neurological Symptoms : Dizziness, Headache Level of Consciousness : Alert, Awake Affect/Behavior : Appropriate, Calm, Cooperative Speech : Clear Orientation : Oriented x 4 Pupil Description, Left : Regular, Round Pupil Description, Right : Regular, Round Facial Symmetry : Symmetric Gait Assistance Level : Independent, complete [place] Coma Scale Link : Open GCS Current/Recent Head Injury : No Neurological Assessment Comment : denies hx of migraines or freq headaches LALI SEAY RN - 11/25/2020 14:01 EST [place] Coma Canelo Best Motor Response : Obey commands [place] Best Verbal Response : Oriented Canelo Eye Opening Response : Spontaneous [place] Coma Score : 15 LALI SEAY RN - 11/25/2020 14:01 EST documented in this encounter Plan of Treatment Not on file documented as of this encounter Visit Diagnoses Not on filedocumented in this encounter
--- OUTSIDE RECORDS SUMMARY | 2025-04-24 17:27 | XMS_ITS | Encounter Summary ---
Author Organization [facility] Address [address] [place] [address] Care Team Providers Care Heeler Machine Name Role Phone Nadia Goodson MD Primary Care Provider [phone] Encounter Details Date Type Department Care Team (Late st Contact Info) Description 04/18/2025 Results Follow-Up Obstetrics & Gynecology [address] [place] [address] Tres Ybarra MD [address] [place] [address] Social History Tobacco Use Types Packs/Day Years Used Date Smoking Tobacco: Never Smokeless Tobacco: Never Alcohol Use Standard Drinks/Week Comments No 0 (1 standard drink = 0.6 oz pur e alcohol) PHQ-2 Answer Date Recorded Patient Health Questionnaire-2 Score 0 04/08/2025 [place] Depression Scale Answer Date Recorded [place] Depression Scale Total 0 02/23/2024 The thought [...] EDT Procedure Visit Obstetrics & Gynecology [address] [place] [address] Tres Ybarra MD [address] [place] [address] documented as of this encounter [...] documented as of this encounter Care Teams Heeler Machine Relationship Specialty Start Date End Date Nadia Goodson MD [address] [place] [address] PCP - General 01/17/23 documented as of this encounter
--- OUTSIDE RECORDS SUMMARY | 2025-04-24 17:27 | XMS_ITS | Encounter Summary ---
Author Organization [employer] Address [address] [place] [address] Care Team Providers Care Upsetter Name Role Phone Unavailable Primary Care Provider Unavailabl e Encounter Details Date Type Department Care Team (Late st Contact Info) Description 09/24/2019 Transcribed Document [facility] Family Medicine [facility] [place] [address] ProviderLeón MD [address] [place] [id number] Social History Tobacco Use Types Packs/Day Years Used Date Smoking Tobacco: Never Assessed Comments Unknown Sex and Gender Information Value Date Recorded Sex Assigned at Not on file Legal Sex Female 6:09 PM CDT Gender Identity Not on file Sexual Orientation Not on file documented as of this encounter Miscellaneous Notes * Cerner Conversion Note - Historical ProviderMD - 09/24/2019 9:17 AM TYPESETTING MACHINE TENDER documented in this encounter Plan of Treatment Not on file documented as of this encounter Visit Diagnoses Not on filedocumented in this encounter
--- OUTSIDE RECORDS SUMMARY | 2025-04-24 17:27 | XMS_ITS | Encounter Summary ---
Author Organization Healthcare Address [address] [place] [id number] Care Team Providers Care Neon Electrician Name Role Phone Pcp, No Primary Care Provider Nadia Todd MD Primary Care Provider [phone] Pcp, No Primary Care Provider Nadia Todd MD Primary Care Provider [phone] Encounter Details Date Type Department Care Team ([facility] Contact Info) Description 11/05/2019 [facility] Historical OTTR [address] [place] [address] Marla Sin, RN [facility] [address] [place] [address] Social History Tobacco Use Types Packs/Day Years Used Date Smoking Tobacco: Never Assessed Comments Unknown Sex and Gender Information Value Date Recorded Sex Assigned at Not on file Legal Sex Female 6:35 PM EDT Gender Identity Not on file Sexual Orientation Not on file documented as of this encounter Miscellaneous Notes * Progress Notes - Marla Bridges - 11/05/2019 9:58 AM EST Donor case discussed; committee determined that the donor needs to loose weight to a BMI goal of 32at evaluation and 30 before surgery. BMI 39 is concerning at her young age. Patient taking metformin for PCOS which is also another concern. Requested that the patient be given a goal BMI of 32 and contact us back at that time. * Progress Notes - Marla Bridges - 11/05/2019 8:00 AM EST 24 y/o donor for (55, Listed, Friend ) MEDS: metformin (PCOS), zoloft, wellbutrin PMH: PCOS, tattoo 03/2019, asthma, UTI 2014, renal stones x1, anxiety/depression SX: ACL 2016, choley, ovarian cyst removal 2013, tonsilectomy FM HX: DM, HTN, renal disease, N/A , , 1 children BMI: 39 documented in this encounter Plan of Treatment Upcoming Encounters Date Type Department Care Team (Late st Contact Info) Description 02/09/2026 8:45 AM EDT Procedure Visit Obstetrics & Gynecology [address] [place] [address] Tres Ybarra MD [address] [place] [address] documented as of this encounter Visit Diagnoses Not on filedocumented in this encounter Care Teams Neon Electrician Relationship Specialty Start Date End Date Pcp, No [address] [place] [address] PCP - General 08/07/21 08/08/21 Nadia Goodson MD [address] [place], [place] [id number] PCP - General 08/09/21 08/09/21 Pcp, No [address] [place] [address] PCP - General Family Medicine 07/08/22 01/16/23 Nadia Goodson MD [address] [place] [address] PCP - General 01/17/23 documented as of this encounter
--- OUTSIDE RECORDS SUMMARY | 2025-04-24 17:27 | XMS_ITS | Encounter Summary ---
Author Organization Healthcare Address [address] [place] [address] Care Team Providers Care Loan Inspector Name Role Phone Pcp, No Primary Care Provider Nadia Todd MD Primary Care Provider [phone] Pcp, No Primary Care Provider Nadia Todd MD Primary Care Provider [phone] Encounter Details Date Type Department Care Team (Late st Contact Info) Description 10/31/2019 [facility] Encounter Historical OTTR [address] [place] [address] Provider, MD León [address] [place] [address] Social History Tobacco Use Types Packs/Day Years Used Date Smoking Tobacco: Never Assessed Comments Unknown Sex and Gender Information Value Date Recorded Sex Assigned at Not on file Legal Sex Female 6:35 PM EDT Gender Identity Not on file Sexual Orientation Not on file documented as of this encounter Miscellaneous Notes * Progress Notes - Marla Bridges - 11/08/2019 10:12 AM EST Contacted the donor and reviewed the need for weight loss given her current BMI. Reviewed that the donor's current BMI is 39; informed the donor that we usually do not evaluate donors until they are at a BMI of 32; reviewed with the donor that this would be a goal weight of 185lbs and prior to surgery the goal BMI is 30 at 175lbs for her height and weight. Asked the donor if she would like to be referrred to any weight loss resources and the patient confirmed that she has an appointment with a sai SAMANIEGO on Saturday 11/11. Donor given a goal weight of 185lbs (BMI 32) and requested she contact us back at that time to see where were are in the donating process for this recipient. Informed the donor that the current use of metformin for PCOS was also a concern to the MDs; donor verbalized understanding. * Progress Notes - Provider, MD León - 10/31/2019 10:47 AM EST Emailed pt. LDKT questionnaire. documented in this encounter Plan of Treatment Upcoming Encounters Date Type Department Care Team (Late st Contact Info) Description 02/09/2026 8:45 AM EDT Procedure Visit Obstetrics & Gynecology [address] [place] [address] Tres Ybarra MD [address] [place] [address] documented as of this encounter Visit Diagnoses Not on filedocumented in this encounter Care Teams Loan Inspector Relationship Specialty Start Date End Date Pcp, No [address] [place] [address] PCP - General 08/07/21 08/08/21 Nadia Goodson MD [address] [place] [address] PCP - General 08/09/21 08/09/21 Pcp, No [address] [place] [address] PCP - General Family Medicine 07/08/22 01/16/23 Nadia Goodson MD [address] [place] [address] PCP - General 01/17/23 documented as of this encounter
--- OUTSIDE RECORDS SUMMARY | 2025-04-24 17:27 | XMS_ITS | Encounter Summary ---
Author Organization [facility] Address [address] [place] [address] Care Team Providers Care Secured Entrance Monitor Name Role Phone Nadia Goodson MD Primary Care Provider [phone] Reason for Visit * Reason Onset Date Comments HCN - Patient Message 04/14/2025 Encounter Details Date Type Department Care Team (Late st Contact Info) Description 04/14/2025 Telephone Obstetrics & Gynecology [address] [place] [address] Tres Ybarra MD [address] [place] [address] HCN - Patient Message Social History Tobacco Use Types Packs/Day Years Used Date Smoking Tobacco: Never Smokeless Tobacco: Never Alcohol Use Standard Drinks/Week Comments No 0 (1 standard drink = 0.6 oz pur e alcohol) PHQ-2 Answer Date Recorded Patient Health Questionnaire-2 Score 0 04/08/2025 [place] Depression Scale Answer Date Recorded [place] Depression Scale Total 0 02/23/2024 The thought [...] as of this encounter Miscellaneous Notes * Telephone Encounter - Dallin Cottrellsandeep Yousif - 04/14/2025 10:34 AM EDT Patient wanted to come at 4 but I explained 3:30 was the latest for a lab draw ... She will keep early appointment. * Telephone Encounter - Jesus Honeycutt - 04/14/2025 9:35 AM EDT Clinical Concern/Question Reason for Call: pt is asking for her nurse visit to be rs please Best contact number: [phone] (mobile) Optimal time of day to reach caller: ANYTIME Additional comments/information from caller: None Note: Please do not reply to this message. Follow-up communication and further actions as a result of this message need to be communicated with the patient directly, if the patient is not active onMyChart. If the patient is active on MyChart, they will receive notification of the communication/outcome via Glip[employer]. documented in this encounter Plan of Treatment Upcoming Encounters Date Type Department Care Team (Late st Contact Info) Description 02/09/2026 8:45 AM EDT Procedure Visit Obstetrics & Gynecology [address] [place] [address] Tres Ybarra MD [address] [place] [address] documented as of this encounter [...] documented as of this encounter Care Teams Secured Entrance Monitor Relationship Specialty Start Date End Date Nadia Goodson MD [address] [place] [address] PCP - General 01/17/23 documented as of this encounter
--- OUTSIDE RECORDS SUMMARY | 2025-04-24 17:27 | XMS_ITS | Clinical Summary ---
Author Organization [facility] Address [address] [place] [address] Care Team Providers Care Report Writer Name Role Phone Nadia Goodson MD Primary Care Provider [phone] Allergies Active Allergy Reactions Criticality Noted Date Comments Amoxicillin Other - please docum ent in the comment field,Rash Low 05/15/2014 Hydrocodone Rash High 05/03/2021 Nsaids Other - please docum ent in the comment field Low 09/13/2023 Cant take with recent gastric sleeve surgery Other Other - please docum ent in the comment field Low 08/30/2023 Surgical glue Medications famotidine (Pepcid) 20 MG tablet TAKE 1 TABLET BY MOUTH ONCE DAILY AT BEDTIME FOR 90 DAYS 3 Active levothyroxine (Synthroid, Levoxyl) 50 MCG tablet Take 1 tablet (50 mcg) by mouth 1 (one) time each day. 4 Active Multiple Vitamin (MULTIVITAMIN ADULT PO) Active omeprazole (PriLOSEC) [address] capsule Take 1 capsule by mouth 2 times a day. 5 Active Zepbound 10 MG/0.5ML solution auto-injector INJECT 1 PEN-INJECTOR SUBCUTANEOUSLY ONCE A WEEK 5 Active letrozole (Femara) 2.5 MG chemo tablet Take 1 tablet (2.5 mg total) by mouth daily. Take with or without food. 5 tablet 5 Active Active Problems Problem Noted Date Diagnosed Date Acute vaginitis 08/30/2023 Resolved Problems Problem Noted Date Diagnosed Date Resolved Date Encounter for supervision of other normal , unspecified trimester 08/30/2023 024 Presence of intrauterine con traceptive device (IUD) 06/01/2022 08/30/2023 Assessment & Plan (06/01/2022 8:56 AM EDT): LLQ pain since IUD placement. Exam performed and TVUS ordered. Fertility testing 06/01/2022 08/30/2023 Assessment & Plan (06/01/2022 9:16 AM EDT): History of anovulatory cycles, menorrhagia and anemia. Will refer to Dr. Saeed to discuss fertility and planning for . LLQ pain 06/01/2022 08/30/2023 Dysfunctional uterine bleeding 08/09/2021 08/30/2023 Assessment & Plan (06/01/2022 9:17 AM EDT): AUB - likely related to IUD, appears in place on exam. TVUS for IUD location. Assessment & Plan (08/24/2021 4:44 PM EDT): AUB, menorrhagia, follow up from hospitalization. Doing well, bleeding improved with OCPs, desires Mirena. IUD placed, follow up for string check 4 weeks. Vaginal bleeding 08/08/2021 08/30/2023 Assessment & Plan (10/04/2021 4:14 PM EST): IUD in place, bleeding improved. Paps up to date. Follow up as needed, reviewed precautions. Encounters Date Type Department Care Team Description 04/18/2025 Results Follow-Up Obstetrics & Gynecology [address] [place] [address] Tres Ybarra MD 04/17/2025 10:00 AM EDT Clinical Support Obstetrics & Gynecology [address] [place] [address] Irregular menstruation, unspecified (Primary Dx) 04/17/2025 Travel 04/14/2025 Telephone Obstetrics & Gynecology [address] [place] [place] [address] Tres Ybarra MD HCN - Patient Message 04/08/2025 2:15 PM EDT Ancillary Procedure Obstetrics & Gynecology [address] [place] [address] Irregular menstruation, unspecified 04/08/2025 2:00 PM EDT Office Visit Obstetrics & Gynecology [address] [place] [address] Tres Ybarra MD Irregular menstruation, unspecified (Primary Dx); Encounter for preconception consultation 04/08/2025 Travel 03/27/2025 Telephone Obstetrics & Gynecology [address] [place] [place] [address] Tres Ybarra MD 02/13/2025 Results Follow-Up Obstetrics & Gynecology [address] [place] [address] Tres Ybarra MD 02/06/2025 8:00 AM EDT Office Visit Obstetrics & Gynecology [address] [place] [address] Tres Ybarra MD Encounter for annual routine gynecological examination (Primary Dx); Irregular menstruation, unspecified; Encounter for preconception consultation 02/06/2025 Travel 02/05/2025 Travel from Last 3 Months Immunizations Immunization Administration Dates Next Due Influenza, injectable, quadrivalent, preservativ e free 07/17/2023 Rho (D) Immune Globulin 11/03/2023,05/31/2017 Rsv, Bivalent, Protein Subun it Rsvpref, Diluent Reconstituted, 0.5mL, PF 12/04/2023 Tdap 11/03/2023 Family History Medical History Relation Name Comments Cardiac disorder Father Hypertension Father Cardiac disorder Maternal Grandfather Diabetes Maternal Grandfather Hyperlipidemia Maternal Grandfather Hypertension Maternal Grandfather Diabetes Mother Hypertension Mother Liver disease Mother Breast cancer Other 1 Thyroid disease Other 2 Hypertension Paternal Grandfather Relation Name Status Comments Father Maternal Grandfather Mother Other 1 Other 2 Paternal Grandfather Social History Tobacco Use Types Packs/Day Years Used Date Smoking Tobacco: Never Smokeless Tobacco: Never Tobacco Cessation:Counseling Given: Not Answered Alcohol Use Standard Drinks/Week Comments No 0 (1 standard drink = 0.6 oz pur e alcohol) PHQ-2 Answer Date Recorded Patient Health Questionnaire-2 Score 0 04/08/2025 [employer] Depression Scale Answer Date Recorded [employer] Depression Scale Total 0 02/23/2024 The thought [...] on file Sexual Orientation Not on file Last Filed Vital Signs Vital Sign Reading Time Taken Comments Blood Pressure 122/78 04/08/2025 2:12 PM EDT Pulse 80 04/08/2025 2:12 PM EDT Temperature 36.6 C (97.9 F) 02/06/2025 8:10 AM EDT Respiratory Rate 20 04/08/2025 2:12 PM EDT Oxygen Saturation 98% 04/08/2025 2:12 PM EDT Inhaled Oxygen Concentration - - Weight 67.3 kg (148 lb 5.9 oz) 04/08/2025 2:12 P M EDT Height 160 cm (5' 3 ) 04/08/2025 2:12 PM EDT Body Mass Index 26.28 04/08/2025 2:12 PM EDT Plan of Treatment Upcoming Encounters Date Type Department Care Team (Late st Contact Info) Description 02/09/2026 8:45 AM EDT Procedure Visit Obstetrics & Gynecology [address] [place] [address] Tres Ybarra MD [address] [place] [address] Health Maintenance Due Date Last Done Comments [facility]-Infant/Child/Adol SDOH Screenings 1993 HPV Vaccines (1 - 3-dose series) 2008 [facility]- SDOH Screenings 2011 [facility]-Adult SDOH Screenings 2011 [facility]-Hepatitis B Vaccines (1 of 3 - 19+ 3-dose series) 2012 [facility]-Varicella Vaccines (2 of 2 - 13+ 2-dose series) 05/27/2015 04/29/2015 [id number] Vaccine (3 - Moderna risk series) 01/06/2021 12/09/2020, 11/11/2020 [facility]-Influenza Vaccine (Season Ended) 2025 07/17/2023 [facility]-Pap Smear 10/14/2025 10/14/2022, 08/08, 05/15/2014 [facility]-Depression Screening 04/08/2026 025, 02/06/2025, 02/23/2024 [facility]-Cervical Cancer Screening 02/06/2030 [facility]-HPV/Cotest 02/06/2030 02/06/2025, 12/07/2022, 09/04/2014, Additional history exists [facility]-DTaP,Tdap,and Td Vaccines (2 - Td or Tdap) 11/03/2033 11/03/2023 [facility]-Zoster Vaccines (1 of 2) 2043 04/29/2015 [facility]-HIV Screening Completed 05/29/2023, 07/18/2017 [facility]-Hepatitis C Screening Completed 05/29/2023, 10/2017 [facility]-RSV Vaccine: 60+ Years or Discontinued 12/04/2023 [facility]-Obesity Intervention Completed 025, 04/08/2025, 02/06/2025, Additional history exists [facility]-HIB Vaccines Aged Out No longer e ligible based on patient's age to complete this topic [facility]-Hepatitis A Vaccines Aged Out No longer eligible based on patient's age to complete this topic [facility]-IPV Vaccines Aged Out No longer e ligible based on patient's age to complete this topic [facility]-Pneumococcal Vaccine: Pediatrics (0 to 5 Years) and At-Risk Patients (6 to 49 Years) Aged Out No longer eligible based on patient's age to complete this topic [facility]-Rotavirus Vaccines Aged Out No lo nger eligible based on patient's age to complete this topic Procedures Procedure Name Priority Date/Time Associated Diagnosis Comments FREE T4, PLASMA Routine 04/17/2025 10:40 AM EDT Irregular menstruation, unspecified TSH Routine 04/17/2025 10:40 AM EDT Irregular menstruation, unspecified PROGESTERONE III Routine 04/17/2025 10:4 0 AM EDT Irregular menstruation, unspecified US PELVIS TRANSVAGINAL Routine 2:12 PM EDT Irregular menstruation, unspecified REFERRED THINPREP PAP AND HPV (SO) Routine 02/06/2025 8:23 AM EDT Encounter for annual routine gynecological examination HEPATITIS C ANTIBODY W/REFLEX TO HCV QUANT PCR Routine 05/29/2023 10:20 AM EDT Unsure of LMP (last menstrual period) as reason for ultrasound scan HIV 1/2 ANTIBODY/ANTIGEN SCREEN WITH REFLEX TO HIV I/II DIFFERENTIATION Routine 05/29/2023 10:20 AM EDT Unsure of LMP (last menstrual period) as reason for ultrasound scan PAP TEST - CYTOLOGY Routine 10/14/2022 4 :17 PM EST Encounter for annual routine gynecological examination from Last 3 Months or Most Recently Relevant to Health Maintenance Results * Progesterone (04/17/2025 10:40 AM EDT) Progesterone III 11.6 Reference Range not established ng/mL 04/17/2025 8:23 PM EDT [facility] Blood Venous blood specimen / Unknown Venipuncture / Unknown 04/17/2025 10:40 AM EDT 04/17/2025 5:56 PM EDT Narrative [facility] - 04/17/2025 8:23 PM EDT Menstrual Cycle Phase Reference Intervals: Females, 18 Y and up (ng/mL) Follicular <= 0.33 Ovulation <= 2.35 Luteal 0.5-21 Post-Menopausal <0.2 reference Intervals (ng/mL): 1st Trimester 11 - 45 2nd Trimester 25 - 84 3rd Trimester 58 - 214 us Tres Ybarra MD LAB BLOOD ORDERABLES Final Resu lt Performing Organization Address City/[facility]/ZIP Co de Phone Number [facility] [address] [place] [address] * Thyroid Stimulating Hormone, Plasma (04/17/2025 10:40 AM EDT) Thyroid Stimulating Hormone, Plasma 2.90 0.40 - 4.20 uIU/mL 04/17/2025 6:39 PM EDT [facility] Blood Venous blood specimen / Unknown Venipuncture / Unknown 04/17/2025 10:40 AM EDT 04/17/2025 5:57 PM EDT Narrative [facility] - 04/17/2025 6:39 PM EDT Trimester Specific Ranges TSH ( IU/mL) 1st Trimester 0.1 - 3.0 2nd Trimester 0.19 - 4.06 3rd Trimester 0.3 - 3.7 us Tres Ybarra MD LAB BLOOD ORDERABLES Final Resu lt Performing Organization Address [facility] [place] [address] * Free T4, Plasma (04/17/2025 10:40 AM EDT) Free T4, Plasma 1.2 0.8 - 1.7 ng/dL 04/17/2025 6:39 PM EDT [facility] Blood Venous blood specimen / Unknown Venipuncture / Unknown 04/17/2025 10:40 AM EDT 04/17/2025 5:57 PM EDT Narrative [facility] - 04/17/2025 6:39 PM EDT Free T4 Trimester Specific Ranges 1st Trimester 0.9 - 1.50 ng/dL 2nd Trimester 0.7 - 1.40 ng/dL 3rd Trimester 0.7 - 1.24 ng/dL us Tres Ybarra MD LAB BLOOD ORDERABLES Final Resu lt Performing Organization Address City/[facility]/[place] [address] * US Pelvis Transvaginal (04/08/2025 2:12 PM EDT) Anatomical Region Laterality Modality Pelvis Ultrasound 04/08/2025 2:20 PM EDT Impressions 04/08/2025 2:24 PM EDT The OB Ultrasound you requested has been resulted. Please navigate to the Imaging tab in [employer] for review. This message has been generated by the interface. Narrative Procedure Note Tres Ybarra MD - 04/08/2025 IMPRESSION: The OB Ultrasound you requested has been resulted. Please navigate to theImaging tab in [employer] for review. This message has been generated by [employer]. us Tres Ybarra MD IMG US PROCEDURES Final Result * Referred ThinPrep Pap and HPV (SO) (02/06/2025 8:23 AM EDT) Pap, Source Cx/Vagina 02/13/2025 12:50 PM EDT [facility] ([employer] EER Referred ThinPrep Pap and HPV See Note 02/13/2025 12:50 PM EDT [facility] ([employer] PAP, THINPREP Normal 02/13/2025 12:50 PM EDT [facility] ([employer] High Risk HPV Normal 02/13/2025 12:50 PM EDT [facility] ([employer] Swab Vaginal and cervical cytologic material / Unknown Non-blood Collection / Unknown 02/06/2025 8:23 AM EDT 02/06/2025 12:54 PM EDT Narrative [facility] ([employer] - 02/13/2025 12:50 PM EDT Authorized individuals can access the [employer] Enhanced Report with an [employer] Connect account using the following link. Your local lab can assist you in obtaining the patient report if you don't have a Connect account. [email or web address] Performed By: [facility] [address] [place] [id number] Medical Records Field Technician: Thompson Correa MD, PhD CLIA Number: [id number] SPECIMEN PART A. Cervical, Endocervical, Vaginal, ThinPrep Pap (Skilled Labor) CYTOLOGY HX Date of Last Menstrual Period: N FINAL DIAGNOSIS INTERPRETATION: Negative for Intraepithelial Lesion or Malignancy. SPECIMEN ADEQUACY:Satisfactory for evaluation. Endocervical/transformation zone component present. Electronically Signed Out : [email or web address] Performed by: [email or web address] [address] [place] [address] [place] [address] Desire Alvarez MD, HR-HPV: Negative Test performed by the FDA-approved [employer] [facility] (Gen-Probe) APTIMA HPV test, which detects HPV genotypes: 16, 18, 31, 33, 35, 39, 45, 51, 52, 56, 58, 59, 66, and 68. This assay has been cleared for the specimen types listed below. Other specimen types have not been validated for this assay. -Clinician-collected ThinPrep Pap specimens. Performed by: [email or web address] [address] [place] [address] [place] [address] Desire Alvarez MD, Tres Ybarra MD LAB REF LAB BLOOD AND FLUID ORD Final Result [facility] [place]) [address] [phone] * HIV 1 & 2 Antibody/Antigen Screen (05/29/2023 10:20 AM EDT) HIV 1 & 2 Antibody/Antigen Screen Non Reactive Non Reactive 05/29/2023 2:06 PM EDT [facility] Comment:Screening for HIV 1 & 2 antibodies, and P24 antigen is NONREACTIVE. No confirmatory testing is required. Blood Venous blood specimen / Unknown Venipuncture / Unknown 05/29/2023 10:20 AM EDT 05/29/2023 1:01 PM EDT Result Mary Ybarra MD LAB BLOOD ORDERABLES Final Resu lt Performing Organization Address City/[facility]/ZIP Co de Phone Number [facility] [address] [place] [address] * Hepatitis C Antibody (05/29/2023 10:20 AM EDT) Hepatitis C Antibody Negative Negative 05/29/2023 2:02 PM EDT [facility] Blood Venous blood specimen / Unknown Venipuncture / Unknown 05/29/2023 10:20 AM EDT 05/29/2023 1:01 PM EDT Result Mary Ybarra MD LAB BLOOD ORDERABLES Final Resu lt Performing Organization Address [facility] Co de Phone Number [facility] [address] [place] [address] * Pap Test (10/14/2022 4:17 PM EST) Case Report Cytology Case: [id number] Authorizing Provider: Tres Ybarra MD Collected: 10/14/2022 1617 Ordering Location: Obstetrics & Gynecology Received: 10/17/2022 0925 First Screen: Mag Garcia Specimen: ThinPrep Pap Test, Liquid-Based Cervical/Vaginal, CERVICAL/VAGINAL 10/18/2022 11:55 AM EST [facility] Interpretation NEGATIVE FOR INTRAEPITHELIAL LESION OR MALIGNANCY 10/18/2022 11:55 AM EST [facility] at 1155 EST Other Findings Fungal organisms consistent with Mili species. 10/18/2022 11:55 AM EST [facility] Specimen Adequacy Satisfactory for evaluation; endocervical/newell sformation zone component present. Slide imaged by the ThinPrep Imaging system and selected 22 chavis reviewed then full manual screening. 10/18/2022 11:55 AM EST [facility] Cervical cytology is a screening test primarily for squamous cancers and precursors and has associated false negative and positive results. New technologies such as liquid based sampling may decrease but will not eliminate all false negative results. Regular screening and follow-up of unexplained clinical signs and symptoms are recommended to minimize false negative results. Please see the ASCCP website (www.asccp.org)fo r followup recommendations. If HPV testing was requested, correlation with the results is suggested (please call Microbiology at [phone] for results). 10/18/2022 11:55 AM EST [facility] Menstrual Status Not Applicable 10/06 11:55 AM EST [facility] Contraceptive History Intrauterine device 10/18/2022 11:55 AM EST [facility] Screening Type Routine Screen 2021 11:55 AM EST [facility] High Risk? No 10/18/2022 11:55 AM EST [facility] HPV Testing Requested? Request HPV Testing if ASCUS (Women 25 Years or Older) 10/18/2022 11:55 AM EST [facility] Previous Cancer History No 10/18/2022 11:55 AM EST [facility] Clinical Information Z01.419 - Encounter for annual routine gynecological examination [ICD-10-CM] 10/18/2022 11:55 AM EST [facility] Swab Vaginal and cervical cytologic material / Unknown Non-blood Collection / Unknown 10/14/2022 4:17 PM EST 10/17/2022 9:25 AM EST Tres Ybarra MD LAB CYTOLOGY ORDERABLES Final R esult Performing Organization Address City/State/[facility] Co de Phone Number [facility] [address] [place] [phone] from Last 3 Months or Most Recently Relevant to Health Maintenance Insurance [employer] Advance Directives * Full Code (Latest Code Status on File) Date Activated Date Inactivated Comments 08/09/2021 8:28 PM 08/10/2021 1:42 PM Question Answer Comments Patient has decision-making capacity? Yes * Full Code Date Activated Date Inactivated Comments 08/08/2021 3:47 AM 08/09/2021 12:51 AM Question Answer Comments Patient has decision-making capacity? Yes Care Teams Report Writer Relationship Specialty Start Date End Date Nadia Goodson MD [address] [place] [address] PCP - General 01/17/23
--- OUTSIDE RECORDS SUMMARY | 2025-04-24 17:27 | XMS_ITS | Encounter Summary ---
Author Organization Healthcare Address [address] [place] [address] Care Team Providers Care Television Repairman Name Role Phone Nadia Goodson MD Primary Care Provider [phone] Encounter Details Date Type Department Care Team (Late st Contact Info) Description 02/13/2025 Results Follow-Up Obstetrics & Gynecology [address] [place] [address] Tres Ybarra MD [address] [place] [address] Social History Tobacco Use Types Packs/Day Years Used Date Smoking Tobacco: Never Smokeless Tobacco: Never Alcohol Use Standard Drinks/Week Comments No 0 (1 standard drink = 0.6 oz pur e alcohol) PHQ-2 Answer Date Recorded Patient Health Questionnaire-2 Score 0 04/08/2025 [place] Depression Scale Answer Date Recorded [place] Depression Scale Total 0 02/23/2024 The thought [...] EDT Procedure Visit Obstetrics & Gynecology [address] [place] [address] Tres Ybarra MD [address] [place] [address] documented as of this encounter Visit Diagnoses Not on filedocumented in this encounter Additional Health Concerns Assessment Noted Time PHQ-9 Depression Total Score: 0 02/07/20 25 8:10 AM EDT A fall risk assessment has been complete d for the patient 02/06/2025 8:10 AM EDT A Body Mass Index follow-up plan has been documented for the patient 02/06/2025 8:22 AM EDT documented as of this encounter Care Teams Television Repairman Relationship Specialty Start Date End Date Nadia Goodson MD [address] [place] [address] PCP - General 01/17/23 documented as of this encounter
--- OUTSIDE RECORDS SUMMARY | 2025-04-24 17:27 | XMS_ITS | Encounter Summary ---
Author Organization [employer] Address [address] [place] [address] Care Team Providers Care Aircraft Electrician Name Role Phone Unavailable Primary Care Provider Unavailabl e Encounter Details Date Type Department Care Team (Late st Contact Info) Description 11/25/2020 Transcribed Document [facility] Family Medicine [facility] [place] [address] ProviderLeón MD [address] [place] [id number] Social History Tobacco Use Types Packs/Day Years Used Date Smoking Tobacco: Never Assessed Comments Unknown Sex and Gender Information Value Date Recorded Sex Assigned at Not on file Legal Sex Female 6:09 PM CDT Gender Identity Not on file Sexual Orientation Not on file documented as of this encounter Miscellaneous Notes * Cerner Conversion Note - León ProviderMD - 11/25/2020 10:52 AM [facility] ED Triage Entered On: 11/25/2020 11:06 EST Performed On: 11/25/2020 11:03 EST by ALBERTO CHAVES SUPERVISOR [employer] Triage Across the Room Chief Complaint : pt states NAGY for last 2 days, worst NAGY of life, pressure in back of head, no other symptoms noted, Triage Date/Time : 11/25/2020 11:03 EST ALBERTO CHAVES RN - 11/25/2020 11:03 EST DCP GENERIC CODE Tracking Acuity : 3 - Urgent Tracking Group : [facility] ED ALBERTO CHAVES RN - 11/25/2020 11:03 EST Mode of Arrival : Ambulatory Transported to ED by : Private vehicle To Room Via : Wheelchair Accompanied By : Unaccompanied ED Vital Signs : Document Height & Weight : Document ED Allergies : Document ED Reason for Visit : Document Tetanus Immunization : Less than 5 years ALBERTO CHAVES RN - 11/25/2020 11:03 EST Infectious Disease History Has the patient ever been tested for COVID-19? : No, Patient stated Does patient have symptoms of COVID-19? : No COVID19 Screening : No Experiencing Infectious Disease Symptoms : Headache Physical contact outside [place] in the last 30 days : No Infectious Disease History : C-Difficile Tuberculosis Symptoms : None ALBERTO CHAVES RN - 11/25/2020 11:03 EST Vital Signs ED Temperature Source : Oral Temperature Mode : Fahrenheit Temperature, Fahrenheit : 98.2 Deg F ED Pain : Yes Clinical Temperature, C : 36.8 Deg C Oxygen Therapy Mode : Room air Peripheral Pulse Rate : 115 bpm (HI) Respiratory Rate : 18 Breaths/Min Systolic Blood Pressure : 158 mmHg (HI) Diastolic Blood Pressure : 86 mmHg Oxygen Saturation : 98 % ALBERTO CHAVES RN - 11/25/2020 11:03 EST Allergy (As Of: 11/25/2020 11:06:17 EST) Allergies (Active) amoxicillin Estimated Onset Date: Unspecified ; Reactions: C/O - vomiting ; Created By: Tim Prescott, Pharmacist; Reaction Status: Active ; Category: Drug ; Substance: amoxicillin ; Type: Intolerance ; Updated By: Tim Prescott, Pharmacist; Reviewed Date: 11/25/2020 11:05 EST Diagnosis Control ED (As Of: 11/25/2020 11:06:17 EST) Problems(Active) Asthma (SNOMED CT :171983088 ) Name of Problem: Asthma ; Recorder: RAJNI RAMIREZ RN; Confirmation: Confirmed ; Classification: Medical ; Code: [id number] ; Contributor System: [email or web address] ; Last Updated: 09/01/2018 18:05 EDT ; Life Cycle Date: 09/01/2018 ; Life Cycle Status: Active ; Vocabulary: SNOMED CT Hypothyroid (SNOMED CT :11935487 ) Name of Problem: Hypothyroid ; Recorder: RAJNI RAMIREZ RN; Confirmation: Confirmed ; Classification: Medical ; Code: [id number] ; Contributor System: [email or web address] ; Last Updated: 09/01/2018 18:05 EDT ; Life Cycle Date: 09/01/2018 ; Life Cycle Status: Active ; Vocabulary: SNOMED CT PCOS (polycystic ovarian syndrome) (SNOMED CT :909374781 ) Name of Problem: PCOS (polycystic ovarian syndrome) ; Recorder: RAJNI RAMIREZ RN; Confirmation: Confirmed ; Classification: Medical ; Code: [id number] ; Contributor System: [email or web address] ; Last Updated: 09/01/2018 18:05 EDT ; Life Cycle Date: 09/01/2018 ; Life Cycle Status: Active ; Vocabulary: SNOMED CT Diagnoses(Active) Headache Date: 11/25/2020 ; Diagnosis Type: Reason For Visit ; Confirmation: Complaint of ; Clinical Dx: Headache ; Classification: Medical ; Clinical Service: Emergency medicine ; Code: PNED ; Probability: 0 ; Diagnosis Code: [id number] ED Height and Weight Height Source : Stated Height Entry Format : [place] Height, Feet : 5 ft(Converted to: 152 cm, 60 Inch) Height, Inches : 5 Inch(Converted to: 0 ft 5 Inch, 12.70 cm) Clinical Height : 165.1 cm Weight Source, ED : Critical estimated dosing weight Weight Entry Format : [place] Weight, Pounds : 220 lb Clinical Dosing Weight : 100 kg Body Surface Area (BSA) : 2.06 m2 Body Mass Index : 36.7 kg/m2 (HI) [place] Body Weight (IBW) : 56.59 kg ALBERTO CHAVES RN - 11/25/2020 11:03 EST Pain Assessment Pain Assessment : Initial assessment Pain Scale Used : 0-10 Scale Location : Head ALBERTO CHAVES RN - 11/25/2020 11:03 EST Pain Scale Intensity : 10 ALBERTO CHAVES RN - 11/25/2020 11:03 EST Image 4 - Images currently included in the form version of this document have not been included in the text rendition version of the form. documented in this encounter Plan of Treatment Not on file documented as of this encounter Visit Diagnoses Not on filedocumented in this encounter
--- OUTSIDE RECORDS SUMMARY | 2025-04-24 17:27 | XMS_ITS | Clinical Summary ---
Author Organization [employer] Address [address] [place] [address] Care Team Providers Care Carpenter Helper Name Role Phone Unavailable Primary Care Provider Unavailabl e Social History Tobacco Use Types Packs/Day Years Used Date Smoking Tobacco: Never Assessed Comments Unknown Sex and Gender Information Value Date Recorded Sex Assigned at Not on file Legal Sex Female 6:09 PM CDT Gender Identity Not on file Sexual Orientation Not on file Plan of Treatment Not on file
--- OUTSIDE RECORDS SUMMARY | 2025-04-24 17:27 | XMS_ITS | Encounter Summary ---
Author Organization [employer] Address [address] [place] [address] Care Team Providers Care Tuckpointer Name Role Phone Unavailable Primary Care Provider Unavailabl e Encounter Details Date Type Department Care Team (Late st Contact Info) Description 11/25/[address] [facility] Radiology [address] [place] [address] Virgie Armendariz MD [facility] Dept [place] [address] Social History Tobacco Use Types Packs/Day Years Used Date Smoking Tobacco: Never Assessed Comments Unknown Sex and Gender Information Value Date Recorded Sex Assigned at Not on file Legal Sex Female 6:09 PM CDT Gender Identity Not on file Sexual Orientation Not on file documented as of this encounter Miscellaneous Notes * Cerner Conversion Note - Virgie Armendariz MD - 11/25/2020 3:12 PM EST Patient: PAM FENG Age: 25 years Sex: Female : 1995 Associated Diagnoses: Headache Author: MARTA FLORES PA-C Basic Information Time seen: Date 11/25/2020. History source: Patient. Arrival mode: Private vehicle. History limitation: None. Additional information: Chief Complaint from Nursing Triage Note : Chief Complaint 11/25/2020 11:03 EST Chief Complaint pt states NAGY for last 2 days, worst NAGY of life, pressure in back of head, no other symptoms noted, . History of Present Illness The patient presents with headache. The onset was 2 days ago. The course/duration of symptoms is constant and worsening. Location: band like pressure around head . Radiating pain: none. The character of symptoms is pressure. The degree at maximum was 10 /10. , just HAY STACKER . The degree at present is moderate, 8 /10, patient reports some improvement while waiting in lobby . Exacerbating factors: not light, noise, exertion, neck motion, coughing, bending over or standing. Prior episodes: rare. Associated symptoms: denies nausea, denies vomiting, denies dizziness, denies altered vision, denies photophobia, denies fever, denies chills, denies neck pain, denies syncope, denies rash, denies altered speech, denies altered level of consciousness and denies seizure. has tried tylenol and motrin without improvement of headache . Review of Systems Constitutional symptoms: Negative except as documented in HPI. Skin symptoms: Negative except as documented in HPI. Eye symptoms: Negative except as documented in HPI. ENMT symptoms: Negative except as documented in HPI. Respiratory symptoms: Negative except as documented in HPI. Cardiovascular symptoms: Negative except as documented in HPI. Gastrointestinal symptoms: Negative except as documented in HPI. Genitourinary symptoms: Negative except as documented in HPI. Musculoskeletal symptoms: Negative except as documented in HPI. Neurologic symptoms: Negative except as documented in HPI. Health Status Allergies: Nonallergic Reactions (Selected) Severity Not Documented Amoxicillin- C/o - vomiting.. Medications: (Selected) Inpatient Medications Ordered Benadryl: 25 mg, IV Push, 1-Time Reglan: 10 mg, IV Push, 1-Time Sodium Chloride 0.9% bolus: 1,000 mL, 1,000 mL/Hr, IV Piggyback, 1-Time Toradol: 30 mg, IV Push, 1-Time Documented Medications Documented Zoloft: Oral, Daily, 0 Refill(s) letrozole: mg, Oral, Daily, 0 Refill(s) metFORMIN: Oral, 0 Refill(s). Past Medical/ Family/ Social History Surgical history: No active procedure history items have been selected or recorded.. Family history: No family history items have been selected or recorded.. Social history: Social & Psychosocial Habits Alcohol 12/23/2017 Alcohol Use History, Social Habits No Substance Abuse 12/23/2017 Recreational Drug Use History No Tobacco 12/23/2017 Smoking Status Never smoker . Problem list: Active Problems (3) Asthma Hypothyroid PCOS (polycystic ovarian syndrome) . Physical Examination Vital Signs Vital Signs/Vital Measures 11/25/2020 11:03 EST Systolic Blood Pressure 158 mmHg HI Diastolic Blood Pressure 86 mmHg Temperature Source Oral Temperature Mode Fahrenheit Temperature, Fahrenheit 98.2 Deg F Clinical Temperature, C 36.8 Deg C Peripheral Pulse Rate 115 bpm HI Respiratory Rate 18 Breaths/Min Oxygen Saturation 98 % Oxygen Therapy Mode Room air . Measurements 11/25/2020 11:03 EST Height Source Stated Height Entry Format [place] Height/Length, DJIBOUTIAN (ft) 5 ft Height/Length DJIBOUTIAN 5 Inch CLINICALHEIGHT 165.1 cm [place] Body Weight 56.59 kg Weight Source, ED Critical estimated dosing weight Weight Entry Format [place] Weight E[place]rean lb 220 lb CLINICALWEIGHT 100 kg Body Surface Area (BSA) 2.06 m2 Body Mass Index 36.7 kg/m2 HI . Oxygen Saturation 11/25/2020 11:03 EST Oxygen Saturation 98 % . General: Alert, no acute distress. Skin: Warm, dry. Head: Normocephalic. Neck: Supple, trachea midline, no tenderness, normal ROM, no meningismus . Eye: Pupils are equal, round and reactive to light, extraocular movements are intact, normal conjunctiva, vision grossly normal. Ears, nose, mouth and throat: Oral mucosa moist. Cardiovascular: Regular rate and rhythm, No murmur. Respiratory: Lungs are clear to auscultation, respirations are non-labored, breath sounds are equal. Gastrointestinal: Soft, Nontender, Non distended. Neurological: Alert and oriented to person, place, time, and situation, No focal neurological deficit observed. Psychiatric: Cooperative, appropriate mood & affect. Medical Decision Making Differential Diagnosis: Migraine, tension headache, intracranial hemorrhage. Documents reviewed: Emergency department nurses' notes. Results review: Lab results : Lab Results 11/25/2020 14:20 EST HCG Result Negative Internal Control Line Present Yes Internal Control Background Clear Yes 11/25/2020 11:07 EST Sodium Level 137 mmol/L Potassium Level 3.9 mmol/L Chloride Level 106 mmol/L Carbon Dioxide Level 22 mmol/L Anion Gap 13 Glucose Level 102 mg/dL Blood Urea Nitrogen 13 mg/dL Creatinine Level 0.80 mg/dL eGFR >60 mL/min/1.73m2 eGFR NonAfrican >60 mL/min/1.73m2 Bun/Creatinine 16.2 Calcium Level 8.9 mg/dL Protein Total 7.8 Gram/dL Albumin Level 3.8 Gram/dL Globulin 4.0 Gram/dL A/G Ratio 1.0 LOW Bilirubin Total 0.4 mg/dL Alk Phos 103 Units/Liter AST 33 Units/Liter ALT 57 Units/Liter HI WBC 9.1 K/uL RBC 5.33 Million/uL HI Hgb 13.7 g/dL Hct 43.8 % MCV 82.2 fL MCH 25.7 pg MCHC 31.3 Gram/dL LOW Platelet Count 222 K/uL MPV 9.0 fL LOW RDW 13.8 % Neut % 65.9 % Neut # 5.98 K/uL Lymph % 26.1 % Lymph # 2.37 x10(3)/uL Mcdonald % 6.1 % Mcdonald # 0.55 K/uL Eos % 1.3 % Eos # 0.12 x10(3)/uL Baso % 0.3 % Baso # 0.03 x10(3)/uL Slide Review No IG# 0.03 x10(3)/uL IG% 0.30 % . Radiology results: Radiology Results (Last 48 hours) [id number] -- 11/25/2020 10:52 CT Head WO (11/25/2020 12:05) Result: HEAD CT 11/25/2020 11:11 AM HISTORY: Headache.COMPARISON: None.TECHNIQUE: Multiple axial CT images were performed from the foramenmagnum to the vertex. This study was performed with techniques to keepradiation doses as low as reasonably achievable, (ALARA). Individualizeddose reduction techniques using automated exposure control or adjustmentof mA and/or kV according to the patient size were employed.FINDINGS: The ventricles are normal in size. There is no evidence ofhemorrhage. No masses are identified. No extra-axial fluid is seen. Thesinuses are normal. IMPRESSION: No acute intracranial process. Images reviewed, interpreted, and dictated by Tyrone Hobbs MD . Reexamination/ Reevaluation Time: 11/25/2020 15:33:00 . Notes: reports resolution of headache after IV medications, patient sleeping comfortably in room. Impression and Plan Diagnosis Headache - Discharge, Emergency medicine, Medical Plan Condition: Stable. Disposition: Discharged Admit/Transfer/Discharge: Discharge (Order): Start: 11/25/2020 15:34 EST, Discharge to: Home. Patient was given the following educational materials: Tension Headache, Adult. Follow up with: UNKNOWN PHY Within 2 to 3 days Return to ED if symptoms worsen. , UNKNOWN PHY Within 2 to 3 days Return to ED if symptoms worsen.. Counseled: Patient, Regarding diagnosis, Regarding diagnostic results, Regarding treatment plan, Patient indicated understanding of instructions. Notes: I certify that the Physician Senior Informatica Developer performed the services as delegated. I agree with the assessment, treatment plan and disposition of the patient as recorded by the Physician Senior Informatica Developer. This document was created with [employer] dictation software and unidentified architectural project manager errors may be present.. . documented in this encounter Plan of Treatment Not on file documented as of this encounter Visit Diagnoses Not on filedocumented in this encounter
--- OUTSIDE RECORDS SUMMARY | 2025-04-24 17:27 | XMS_ITS | Encounter Summary ---
Author Organization Healthcare Address [address] [place] [address] Care Team Providers Care Research Statistician Name Role Phone Nadia Goodson MD Primary Care Provider [phone] Encounter Details Date Type Department Care Team (Late st Contact Info) Description 03/27/2025 [facility] Obstetrics & Gynecology [address] [place] [address] Tres Ybarra MD [address] [place] [address] Social History Tobacco Use Types Packs/Day Years Used Date Smoking Tobacco: Never Smokeless Tobacco: Never Alcohol Use Standard Drinks/Week Comments No 0 (1 standard drink = 0.6 oz pur e alcohol) PHQ-2 Answer Date Recorded Patient Health Questionnaire-2 Score 0 02/06/2025 Hensley Depression Scale Answer Date Recorded Hensley Depression Scale Total 0 02/23/2024 The thought [...] encounter Miscellaneous Notes * Telephone Encounter - Mary Shelley - 03/27/2025 8:42 AM EDT Clinical Concern/Question Reason for Call: Patient is calling to inform that it Day 1 of her cycle Best contact number: [phone] (mobile) Optimal time of day to reach caller: ANYTIME Additional comments/information from caller: Not Applicable Note: Please do not reply to this message. Follow-up communication and further actions as a result of this message need to be communicated with the patient directly, if the patient is not active onMyChart. If the patient is active on MyChart, they will receive notification of the communication/outcome via [employer]. documented in this encounter Plan of Treatment Upcoming Encounters Date Type Department Care Team (Late st Contact Info) Description 02/09/2026 8:45 AM EDT Procedure Visit Obstetrics & Gynecology [address] [place] [address] Tres Ybarra MD [address] [place] [address] documented as of this encounter [...] documented as of this encounter Care Teams Research Statistician Relationship Specialty Start Date End Date Nadia Goodson MD [address] [place] [address] PCP - General 01/17/23 documented as of this encounter
--- OUTSIDE RECORDS SUMMARY | 2025-04-24 17:27 | XMS_ITS | Encounter Summary ---
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 Name Role Phone Unavailable Primary Care Provider Unavailabl e Encounter Details Date Type Department Care Team (Late st Contact Info) Description 09/24/2019 Transcribed Document [facility] Family Medicine [address] [place] [address] ProviderLeón MD [address] [place] [address] Social History Tobacco Use Types Packs/Day Years Used Date Smoking Tobacco: Never Assessed Comments Unknown Sex and Gender Information Value Date Recorded Sex Assigned at Not on file Legal Sex Female 6:09 PM CDT Gender Identity Not on file Sexual Orientation Not on file documented as of this encounter Miscellaneous Notes * Cerner Conversion Note - León Joseph MD - 09/24/2019 10:05 AM INTERNIST MEDICAL DOCTOR MD [place] [phone] PAM FENG :1995 Visit Time:09/24/2019 Your Visit Summary Your Care Team Primary Provider: ROSENDA PICKERING MD Secondary Provider: Your Diagnosis Abdominal pain Dysfunctional uterine bleeding Fever Tachycardia Vaginal bleeding Vaginal bleeding Medical Information You may obtain a copy of your Emergency Department visit from Medical Records by calling the hospital phone number listed above and asking to be directed to the Medical Records Department. If you had special tests, such as EKG???s or X-rays, the interpretation of your tests given to you by the Emergency Department Physician is a preliminary report. Some fractures and illnesses fail to show up on preliminary tests. These will be reviewed again and we will call you if there are any new suggestions. If your symptoms continue notify your physician. After you leave, you should follow the instructions provided. What to do next Follow-Up Appointments Follow Up with SOFÍA VAUGHN When Within 2 to 3 days Comments Return or go to the nearest ER for dizziness, difficulty breathing, worsening bleeding, fever and or persistent vomiting. Where: [facility] [address] [place] [address]- [facility] (1) Allergies amoxicillin (C/O - vomiting) Immunizations This Visit No Immunizations Found Medications What How Much When Instructions Next Dose The home medications listed are only as accurate as the information you provided. Please continue taking all of your medications prescribed by your Primary Care Provider unless specifically told to change or discontinue the medication. Please direct any questions regarding your home medications to your Primary Care Provider. Take your medications faithfully. Do NOT skip medication. Do NOT stop taking medications without the direction of a physician. Carry a list of your medications with you at all times, and take this medication list with you to your first follow up visit. Report any side effects. Avoid herbal remedies unless discussed with your physician. As part of your treatment plan, your physician may have prescribed a limited course of a controlled substance. This medication may be given to help people with moderate or severe pain or for other medical conditions, but there are risks involved with treatment. Common side effects may include nausea, constipation, drowsiness, sweating, itching, dry mouth, and rash. More serious side effects may include cognitive and motor impairment, like problems with thinking, concentrating, alertness, and movement (e.g. slowed reflexes), and driving and operating heavy machinery can be dangerous. It is important for you to talk to your physician if you have these side effects or questions. These controlled substances can produce physical dependence and be habit-forming if taken for an extended period of time, which means that the body has gotten used to them and may experience withdrawal symptoms if they are abruptly stopped. Withdrawal symptoms can include runny nose, sweating, goose bumps, diarrhea, abdominal cramping, rapid heartbeat, difficulty sleeping, and nervousness. Please dispose of unused and medications per pharmacy guidance. Test Results Laboratory or Other Results This Visit (last charted value for your 09/24/2019 visit) Hematology 09/24/2019 6:23 AM WBC: 7.6 K/uL -- Normal range between ( 3.9 and 10.0 ) RBC: 4.55 Million/uL -- Normal range between ( 3.93 and 5.22 ) Hct: 37.3 % -- Normal range between ( 34.1 and 44.9 ) Hgb: 12.5 Gram/dL -- Normal range between ( 11.2 and 15.7 ) Platelet Count: 182 K/uL -- Normal range between ( 163 and 369 ) MCH: 27.5 pg -- Normal range between ( 25.6 and 32.2 ) MCHC: 33.5 Gram/dL -- Normal range between ( 32.3 and 36.5 ) MCV: 82.0 fL -- Normal range between ( 79.0 and 94.8 ) Slide Review: No Eos %: 4.2 % -- Normal range between ( 1.0 and 7.0 ) [place] #: 0.60 K/uL -- Normal range between ( 0.24 and 0.82 ) Eos #: 0.32 K/uL -- Normal range between ( 0.04 and 0.54 ) [place] %: 7.9 % -- Normal range between ( 4.7 and 12.5 ) Baso %: 0.4 % -- Normal range between ( 0.0 and 1.0 ) Baso #: 0.03 K/uL -- Normal range between ( 0.01 and 0.08 ) RDW: 13.2 % -- Normal range between ( 11.6 and 14.4 ) Neut %: 59.4 % -- Normal range between ( 34.0 and 71.0 ) Neut #: 4.51 K/uL -- Normal range between ( 1.56 and 6.13 ) Lymph %: 27.7 % -- Normal range between ( 19.3 and 53.0 ) Lymph #: 2.10 K/uL -- Normal range between ( 1.18 and 3.74 ) MPV: 9.2 fL -- Normal range between ( 9.4 and 12.4 ) IG#: 0 x10(3)/uL IG%: 0 % -- Normal range between ( 0 and 1 ) Urinalysis 09/24/2019 6:51 AM Ur RBC: TNTC /HPF Urine Nitrite: Negative Urine Leukocyte Esterase: Trace Urine Appearance: Cloudy Urine Glucose Dipstick: Negative Urine Blood Dipstick: Large Urine Urobilinogen Dipstick: 0.2 EU/dL -- Normal range between ( 0.2 and 1.0 ) Urine Protein Dipstick: 30 Ur Bacteria: Trace Ur Squamous Epithelial Cells: 2-5 /HPF Urine Color: Red Ur WBC: 2-5 /HPF Urine Ketones Dipstick: Negative Urine pH Dipstick: 5.5 -- Normal range between ( 6.0 and 8.0 ) Urine Bilirubin Dipstick: Negative Urine Specific [place]: 1.007 -- Normal range between ( 1.005 and 1.030 ) Urine Type.: U CleanCatch Microbiology 09/24/2019 6:23 AM Wet Prep: See Result LENNY Prep: See Result Specimen Type: swab General Chemistry 09/24/2019 6:23 AM Creatinine Level: 0.72 mg/dL -- Normal range between ( 0.55 and 1.02 ) Sodium Level: 137 mmol/L -- Normal range between ( 136 and 146 ) Potassium Level: 3.8 mmol/L -- Normal range between ( 3.5 and 5.1 ) Chloride Level: 108 mmol/L -- Normal range between ( 102 and 112 ) Carbon Dioxide Level: 23 mmol/L -- Normal range between ( 21 and 32 ) Anion Gap: 10 -- Normal range between ( 9 and 20 ) Bilirubin Total: 0.4 mg/dL -- Normal range between ( 0.2 and 1.3 ) A/G Ratio: 0.9 -- Normal range between ( 1.1 and 2.5 ) ALT: 125 Units/Liter -- Normal range between ( 12 and 78 ) AST: 88 Units/Liter -- Normal range between ( 5 and 37 ) Globulin: 3.7 Gram/dL -- Normal range between ( 1.5 and 4.5 ) Alk Phos: 91 Units/Liter -- Normal range between ( 27 and 136 ) Bun/Creatinine: 11.1 -- Normal range between ( 8.0 and 20.0 ) Calcium Level: 8.3 mg/dL -- Normal range between ( 8.5 and 10.1 ) eGFR : >60 mL/min/1.73m2 eGFR NonAfrican: >60 mL/min/1.73m2 Glucose Level: 112 mg/dL -- Normal range between ( 74 and 106 ) Blood Urea Nitrogen: 8 mg/dL -- Normal range between ( 7 and 22 ) Protein Total: 7.1 Gram/dL -- Normal range between ( 6.4 and 8.2 ) Albumin Level: 3.4 Gram/dL -- Normal range between ( 3.4 and 5.0 ) Coagulation 09/24/2019 6:23 AM INR: 0.9 -- Normal range between ( 0.9 and 1.1 ) PTT: 25.4 Second(s) -- Normal range between ( 24.5 and 30.1 ) PT: 9.6 Second(s) -- Normal range between ( 9.6 and 11.5 ) Endocrinology 09/24/2019 6:51 AM HCG Urine Qualitative: Negative Ultrasound 09/24/2019 8:15 AM US Transvaginal Non Ob: US Transvaginal Non Ob Education Materials Abnormal Uterine Bleeding Abnormal uterine bleeding is unusual bleeding from the uterus. It includes: ??? Bleeding or spotting between periods. ??? Bleeding after sex. ??? Bleeding that is heavier than normal. ??? Periods that last longer than usual. ??? Bleeding after menopause. Abnormal uterine bleeding can affect women at various stages in life, including teenagers, women in their reproductive years, women, and women who have reached menopause. Common causes of abnormal uterine bleeding include: ??? . ??? Growths of tissue (polyps). ??? A noncancerous tumor in the uterus (fibroid). ??? Infection. ??? Cancer. ??? Hormonal imbalances. Any type of abnormal bleeding should be evaluated by a health care provider. Many cases are minor and simple to treat, while others are more serious. Treatment will depend on the cause of the bleeding. Follow these instructions at home: ??? Monitor your condition for any changes. ??? Do not use tampons, douche, or have sex if told by your health care provider. ??? Change your pads often. ??? Get regular exams that include pelvic exams and cervical cancer screening. ??? Keep all follow-up visits as told by your health care provider. This is important. Contact a health care provider if: ??? Your bleeding lasts for more than one week. ??? You feel dizzy at times. ??? You feel nauseous or you vomit. Get help right away if: ??? You pass out. ??? Your bleeding soaks through a pad every hour. ??? You have abdominal pain. ??? You have a fever. ??? You become sweaty or weak. ??? You pass large blood clots from your vagina. Summary ??? Abnormal uterine bleeding is unusual bleeding from the uterus. ??? Any type of abnormal bleeding should be evaluated by a health care provider. Many cases are minor and simple to treat, while others are more serious. ??? Treatment will depend on the cause of the bleeding. This information is not intended to replace advice given to you by your health care provider. Make sure you discuss any questions you have with your health care provider. Document Released: 10/23/2006 Document Revised: 11/24/2017 Document Reviewed: 11/24/2017 [employer] Interactive Patient Education ?? 2019 [employer] Emergency Awareness and Preventative Care STROKE is an EMERGENCY Every Minute Counts Act FAST and Check for these signs: FACE Does the face look uneven? ARM Does one arm drift down? SPEECH Does their speech sound strange? TIME Call at any sign of stroke Stroke Risk Factors Atrial Fibrillation (irregular heartbeat) Diabetes Family history of stroke Heart Disease Heavy alcohol use High Blood Pressure High Cholesterol Physical inactivity and obesity Smoking Cigarette Smoking The facts are clear, cigarette smoking will shorten your life. Smoking can cause many illnesses along the way. As a healthcare provider, we recommend that you stop smoking. Assistance with quitting is available by contacting 5-009-TVKU-NOW. This is a free resource providing counseling, support, and referral. Or you may contact your personal physician. National Suicide Prevention Lifeline: The National Suicide Prevention Lifeline is a national network of local crisis centers that provides free and confidential emotional support to people in suicidal crisis or emotional distress 24 hours a day, 7 days a week. Don't Wait! Stop a Heart Attack Before it Starts What is a heart attack? A heart attack is damage or to a part of the heart from severely decreased or lack of blood flow to the heart. Over time, arteries can become narrow from the buildup of fat and cholesterol, which is called plaque. The plaque can rupture causing a blood clot to form. When the blood clot forms, the artery can become severely narrowed or completely blocked, causing a heart attack. Heart attack is the leading cause of in the [place]. 85% of muscle damage occurs within the first 2 hours. Delay in the recognition of heart attack symptoms increases the chances of . Know the early symptoms of a heart attack: Nausea Feeling of fullness in chest Jaw Pain Pain that travels down one or both arms Fatigue/being tired Anxiety Back Pain Chest pressure, squeezing, or discomfort Shortness of breath Sweating, or a cold sweat Feeling of impending doom There are unusual signs of a heart attack, too! Women, the elderly, and diabetics may present with atypical symptoms: Fainting/dizziness Weakness Confusion Risk Factors for a Heart Attack Some heart disease risk factors, such as age and family history, cannot be changed. Others, like smoking and lack of exercise, can be changed. Smoking High Cholesterol High Blood Pressure Family History Obesity Age Gender (Males are at higher risk) Lack of Exercise Diabetes Diet Stress Excessive Alcohol Intake If you or someone you know is experiencing the signs and symptoms of a heart attack, DON???T DELAY. Call immediately and seek help. If someone collapses, perform CPR! Do not attempt to drive if you are having symptoms of heart attack. Hands-Only CPR Why Hands-Only CPR? Hands-Only CPR has been shown to be as effective as conventional CPR for cardiac arrests that occur outside of a hospital. Survival depends on immediately receiving CPR from someone nearby. How do you perform Hands-Only CPR? There are two easy steps: Call if you see a teen or adult collapse Push hard and fast in the center of the chest at a beat of 100 beats per minute. Save a life! 4 WAYS TO GET AHEAD OF SEPSIS SEPSIS is a MEDICAL EMERGENCY. Time matters! Infections put you and your family at risk for a life-threatening condition called sepsis. Sepsis is the body's extreme response to an infection. It is life-threatening, and without timely treatment, sepsis can rapidly lead to tissue damage, organ failure, and . Sepsis happens when an infection you already have-in your skin, lungs, urinary tract or somewhere else-triggers a chain reaction throughout your body. 1 PREVENT INFECTIONS Take good care of chronic conditions. Talk to your doctor about getting the recommended vaccines. 2 PRACTICE GOOD HYGIENE Wash your hands frequently. Keep cuts or open sores clean and covered until they are healed. 3 KNOW THE SYMPTOMS Confusion or disorientation Shortness of breath High heart rate Fever, shivering, or feeling very cold Extreme pain or discomfort Clammy or sweaty skin 4 ACT FAST Get medical care IMMEDIATELY if you suspect sepsis or if you have an infection that is not getting better or is getting worse. To learn more about sepsis and how to prevent infections, visit www.cdc.gov/sepsis. The examination and treatment you have received in the Emergency Department has been done to provide an appropriate evaluation and stabilizing treatment on an emergency basis only. Given the limited resources, it is not meant to be a substitute for complete medical care. The follow-up doctor you named will receive a copy of your records and all test reports. IT IS IMPORTANT THAT YOU SCHEDULE A FOLLOW-UP APPOINTMENT AND ARE RE-EVALUATED. You should report any new complaints, symptoms, or remaining problems at that time. IT IS IMPOSSIBLE FOR THE EMERGENCY DEPARTMENT TO RECOGNIZE AND TREAT ALL ELEMENTS OF INJURY OR ILLNESS IN A SINGLE VISIT. If you have been referred to a specialist physician, it means that we believe you may have a condition that requires the expertise of a specialist. These physicians work in partnership with the hospital and have agreed to see referred patients in their office for further evaluation. KEEP IN MIND THAT THE SPECIALIST HAS HIS/HER OWN OFFICE POLICIES WHICH MAY REQUIRE PROPER INSURANCE OR PAYMENT UP FRONT BEFORE THE SPECIALIST WILL SEE YOU. It is your responsibility to call the specialist physician to make an appointment. We do not have the ability to refer patients to specialists/physicians that work with specific insurance companies. Please be advised that all financial charges or billing practices are determined by that practice, not the hospital. If your insurance company requires that you see a specialist from their approved list, it is your responsibility to contact your insurance company to make those arrangements. It is also your responsibility to follow any other requirements of your insurance company necessary to obtain coverage for claims submitted. We will bill your insurance; however, you are responsible today for any co-pay amounts. You will receive a separate bill for any services you may have received including: emergency, radiology, or pathology physicians. Patient Name:PAM FENG I have received this information and was given the opportunity to ask questions. Patient/School Photographs Detailer Name: Patient/School Photographs Detailer Signature: Relationship to Patient: Clinician/Hospital School Photographs Detailer Signature: Please Provide a Telephone Number Where You Can Be Reached: Is it Permissible To Leave a Message? Date: documented in this encounter Plan of Treatment Not on file documented as of this encounter Visit Diagnoses Not on filedocumented in this encounter
--- OUTSIDE RECORDS SUMMARY | 2025-04-24 17:27 | XMS_ITS | Encounter Summary ---
Author Organization [employer] Address [address] [place] [address] Care Team Providers Care Soubrette Name Role Phone Unavailable Primary Care Provider Unavailabl e Encounter Details Date Type Department Care Team (Late st Contact Info) Description 09/24/[address] [facility] [place] Family Medicine [facility] [place] [address] ProviderLeón MD [address] [place] [address] Social History Tobacco Use Types Packs/Day Years Used Date Smoking Tobacco: Never Assessed Comments Unknown Sex and Gender Information Value Date Recorded Sex Assigned at Not on file Legal Sex Female 6:09 PM CDT Gender Identity Not on file Sexual Orientation Not on file documented as of this encounter Miscellaneous Notes * Cerner Conversion Note - Historical ProviderMD - 09/24/2019 5:36 AM [employer] ED Triage Entered On: 09/24/2019 5:47 EST Performed On: 09/24/2019 5:42 EST by MINDI WONG MANAGER CONSUMER INSIGHTS Triage Across the Room Triage Date/Time : 09/24/2019 5:42 EST Chief Complaint : Pt c/o fever and vaginal bleeding x2 days. Pt stated she is on her period but the bleeding is more than usual; +abdominal cramping. No med taken MANAGER MEETING MINDI WONG, RN - 09/24/2019 5:42 EST MINDI WONG RN - 09/24/2019 5:42 EST DCP GENERIC CODE Tracking Group : [facility] MINDI WONG RN - 09/24/2019 5:42 EST Tracking Acuity : 3 - Urgent MINDI WONG RN - 09/24/2019 5:49 EST Mode of Arrival : Ambulatory Transported to ED by : Private vehicle To Room Via : Ambulate Accompanied By : Unaccompanied ED Vital Signs : Document Height & Weight : Document ED Allergies : Document ED Reason for Visit : Document Tetanus Immunization : Less than 5 years MINDI WONG RN - 09/24/2019 5:42 EST Infectious Disease History Infectious Disease History : C-Difficile Fever/Chills Last 48 Hours : Yes Experiencing Infectious Disease Symptoms : Abdominal pain Travel To Regions with Travel Advisories : No Travel Outside [place] Within Last 30 Days : No Contact With Traveler to Advisory Region : No Tuberculosis Symptoms : None MINDI WONG RN - 09/24/2019 5:42 EST Vital Signs ED Temperature Source : Oral Temperature Mode : Fahrenheit Temperature, Fahrenheit : 97.9 Deg F ED Pain : Yes Clinical Temperature, C : 36.6 Deg C Oxygen Therapy Mode : Room air Peripheral Pulse Rate : 110 bpm (HI) Respiratory Rate : 20 Breaths/Min Systolic Blood Pressure : 127 mmHg Diastolic Blood Pressure : 81 mmHg Oxygen Saturation : 100 % MINDI WONG RN - 09/24/2019 5:42 EST Allergy (As Of: 09/24/2019 05:47:35 EST) Allergies (Active) amoxicillin Estimated Onset Date: Unspecified ; Reactions: C/O - vomiting ; Created By: Tim Prescott Pharmacist; Reaction Status: Active ; Category: Drug ; Substance: amoxicillin ; Type: Intolerance ; Updated By: Tim Prescott, Pharmacist; Reviewed Date: 09/24/2019 5:44 EST Diagnosis Control ED (As Of: 09/24/2019 05:47:35 EST) Problems(Active) Asthma (SNOMED CT :977287316 ) Name of Problem: Asthma ; Recorder: RAJNI RAMIREZ RN; Confirmation: Confirmed ; Classification: Medical ; Code: [id number] ; Contributor System: PowerChart ; Last Updated: 09/01/2018 18:05 EDT ; Life Cycle Date: 09/01/2018 ; Life Cycle Status: Active ; Vocabulary: SNOMED CT Hypothyroid (SNOMED CT :19294045 ) Name of Problem: Hypothyroid ; Recorder: RAJNI RAMIREZ RN; Confirmation: Confirmed ; Classification: Medical ; Code: [id number] ; Contributor System: PowerChart ; Last Updated: 09/01/2018 18:05 EDT ; Life Cycle Date: 09/01/2018 ; Life Cycle Status: Active ; Vocabulary: SNOMED CT PCOS (polycystic ovarian syndrome) (SNOMED CT :594402593 ) Name of Problem: PCOS (polycystic ovarian syndrome) ; Recorder: RAJNI RAMIREZ RN; Confirmation: Confirmed ; Classification: Medical ; Code: [id number] ; Contributor System: MyAGENT ; Last Updated: 09/01/2018 18:05 EDT ; Life Cycle Date: 09/01/2018 ; Life Cycle Status: Active ; Vocabulary: SNOMED CT Diagnoses(Active) Abdominal pain Date: 09/24/2019 ; Diagnosis Type: Reason For Visit ; Confirmation: Complaint of ; Clinical Dx: Abdominal pain ; Classification: Medical ; Clinical Service: Emergency medicine ; Code: PNED ; Probability: 0 ; Diagnosis Code: [id number] Fever Date: 09/24/2019 ; Diagnosis Type: Reason For Visit ; Confirmation: Complaint of ; Clinical Dx: Fever ; Classification: Medical ; Clinical Service: Emergency medicine ; Code: PNED ; Probability: 0 ; Diagnosis Code: [id number] Vaginal bleeding Date: 09/24/2019 ; Diagnosis Type: Reason For Visit ; Confirmation: Complaint of ; Clinical Dx: Vaginal bleeding ; Classification: Medical ; Clinical Service: Emergency medicine ; Code: PNED ; Probability: 0 ; Diagnosis Code: [id number] ED Height and Weight Height Source : Stated Height Entry Format : [place] Height, Feet : 5 ft(Converted to: 152 cm, 60 Inch) Height, Inches : 5 Inch(Converted to: 0 ft 5 Inch, 12.70 cm) Clinical Height : 165.1 cm Weight Source, ED : Standing scale Weight Entry Format : [place] Weight, Pounds : 220 lb Clinical Dosing Weight : 100 kg Body Surface Area (BSA) : 2.06 m2 Body Mass Index : 36.7 kg/m2 (HI) [place] Body Weight (IBW) : 56.59 kg MINDI WONG RN - 09/24/2019 5:42 EST Pain Assessment Pain Assessment : Initial assessment Pain Scale Used : 0-10 Scale MINDI WONG RN - 09/24/2019 5:42 EST Pain Scale Intensity : 6 MINDI WONG RN - 09/24/2019 5:42 EST Image 4 - Images currently included in the form version of this document have not been included in the text rendition version of the form. ED Influenza/Pneumoccocal Vaccine Influenza Immunization, Current Season : No Previous Vaccines from Immunization Schedule : No qualifying data available. MINDI WONG, RN - 09/24/2019 5:42 EST Electronically signed by [facility], [facility] Conversion Turbo Generator Oiler Cerner at 02/19/2023 9:39 AM CDT documented in this encounter Plan of Treatment Not on file documented as of this encounter Visit Diagnoses Not on filedocumented in this encounter
--- OUTSIDE RECORDS SUMMARY | 2025-04-24 17:27 | XMS_ITS | Encounter Summary ---
Author Organization [employer] Address [address] [place] [address] Care Team Providers Care Remote Control Assembler Name Role Phone Unavailable Primary Care Provider Unavailabl e Encounter Details Date Type Department Care Team (Late st Contact Info) Description 11/25/2020 Transcribed Document [facility] [place] Family Medicine [facility] [place] [address] ProviderLeón MD [address] [place] [address] Social History Tobacco Use Types Packs/Day Years Used Date Smoking Tobacco: Never Assessed Comments Unknown Sex and Gender Information Value Date Recorded Sex Assigned at Not on file Legal Sex Female 6:09 PM CDT Gender Identity Not on file Sexual Orientation Not on file documented as of this encounter Miscellaneous Notes * Cerner Conversion Note - Historical ProviderMD - 11/25/2020 3:34 PM MATERIAL MAN documented in this encounter Plan of Treatment Not on file documented as of this encounter Visit Diagnoses Not on filedocumented in this encounter
--- OUTSIDE RECORDS SUMMARY | 2025-04-24 17:27 | XMS_ITS | Data Portability ---
Author Organization [facility] ADMIN Address [address] [place] [id number] Care Team Providers Care Straight Truck Driver Name Role Phone NADIA VAUGHN Primary Care Provider Assessment No assessment recorded. Plan of Treatment Reminders Order Date Submit Date Provider Last Modified By Organization Details Last Modified Time Details Appointments TELEPHONI C VISIT 15 2024 03:40P M Angelito Estrada, DNP, MULTISKILL OPERATOR, PRE WAVE ASSEMBLER-C Not available Not available Not available Lab HbA1c (hemoglob in A1c), blood 2024 025 [email or web address] [facility], [address], [address], [place], [address], 01/17/2025 12:47:29 TSH + free T4, serum 2024 025 [email or web address] [facility], [address], [address], [place], [address], 01/17/2025 12:47:30 lipid panel, serum 2024 025 [facility], [address], [address], [place], [address], 01/17/2025 12:47:30 iron + TIBC + ferritin, serum 2024 025 [email or web address] [facility], [address], [address], [place], [address], 01/17/2025 12:47:29 folate, serum 2024 025 [email or web address] [facility], [address], [address], [place], [address], 01/17/2025 12:47:29 prealbumi n, serum 2024 025 [email or web address] [facility], [address], [address], [place], [address], 01/17/2025 12:47:29 thiamine, QN, blood 2024 025 [email or web address] [facility], [address], [address], [place], [address], 01/17/2025 12:47:29 methylmal cristiano, QN, serum or plasma 2024 025 [email or web address] [facility], [address], [address], [place], [address], 01/17/2025 12:47:29 vitamin D, 25-hydrox y, total, serum 2024 025 [email or web address] [facility], [address], [address], [place], [address], 01/17/2025 12:47:29 vitamin E, serum 2024 025 [email or web address] [facility], [address], [address], [place], [address], 01/17/2025 12:47:29 vitamin A (retinol) , serum 2024 025 [email or web address] [facility], [address], [address], [place], [address], 01/17/2025 12:47:29 CBC w/ auto diff 2024 025 [email or web address] [facility], [address], [address], [place], [address], 01/17/2025 12:47:29 CMP, serum or plasma 2024 025 [email or web address] [facility], [address], [address], [place], [address], 01/17/2025 12:47:29 Referral None recorded. Procedures None recorded. Surgeries None recorded. Imaging MRI, abdomen, w/wo contrast 2023 024 [email or web address] 19 [facility]), [address], [place], [address], 04/30/2024 08:27:15 Medication Orders Zepbound 10 mg/0.5 mL subcutane ous pen injector 2024 025 [facility], [address], [place], [address], 04/04/2025 09:24:46 ondansetr on 4 mg disintegr ating tablet 2024 025 [facility], [address], [place], [address], 04/04/2025 09:24:48 Zepbound 7.5 mg/0.5 mL subcutane ous pen injector 2024 025 [facility], [address], [place], [address], 03/06/2025 14:11:55 Zepbound 5 mg/0.5 mL subcutane ous pen injector 2024 025 [facility], [address], [place], [address], 04/04/2025 09:17:26 Zepbound 2.5 mg/0.5 mL subcutane ous pen injector 2024 025 [facility] - [facility], [address] [address], [place], [address], 03/06/2025 13:58:34 famotidin e 20 mg tablet 2024 025 [facility] - [facility], [address] [address], [place], [address], 01/09/2025 13:40:29 omeprazol e 20 mg capsule,d elayed release 2024 025 [facility] - [facility], [address] [facility] [address], [place], [address], 01/09/2025 13:40:31 Patient TargetsNo targets recorded. Patient InstructionsNo instructions recorded. Reason for Referral None Reported. Results Created Date Observation Date Name Description Value Unit Range Abnormal Flag Note LastModifiedBy Organization Detail LastModifiedTime 01/10/2001/10/2025 FE+TI BC+FE R iron bind.cap.(TI BC) 479 ug/dL 250-45 0 above high normal Not Available [facility] ([facility]) [address] [place], [address], 01/19/2025 08:36:15 01/10/2001/10/2025 FE+TI BC+FE R UIBC 456 ug/dL 131-42 5 above high normal Not Available [facility] ([facility]) [address] [place], [address], 01/19/2025 08:36:15 01/10/20 25 01/10/2025 FE+TI BC+FE R iron 23 ug/dL 27-159 below low normal Not Available [facility] ([facility]) [address] [place], [address], 01/19/2025 08:36:15 01/10/20 25 01/10/2025 FE+TI BC+FE R iron saturation 5 % 15-55 alert low Not Available [facility] ([facility]) [address] [place], [address], 01/19/2025 08:36:15 01/10/20 25 01/10/2025 FE+TI BC+FE R ferritin 7 NG/mL 15-150 below low normal Not Available [facility] ([facility]) [address] [place], [address], 01/19/2025 08:36:15 01/10/20 25 01/10/2025 TSH+F REE T4 TSH 3.330 uIU/m L 0.450- 4.500 normal Not Available [facility] ([facility]) [address] [place], [address], 01/19/2025 08:36:16 01/10/2001/10/2025 TSH+F REE T4 T4,free(dire ct) 1.20 NG/dL 0.82-1 .77 normal Not Available [facility] ([facility]) [address] [place], [address], 01/19/2025 08:36:16 01/10/20 25 01/10/2025 CBC WITH DIFFE RENTI AL/PL ATELE T WBC 7.2 x10e3 /uL 3.4-10 .8 normal Not Available [facility] ([facility]) [address] [place], [address], 01/19/2025 08:36:16 01/10/20 25 01/10/2025 CBC WITH DIFFE RENTI AL/PL ATELE T RBC 4.86 x10e6 /uL 3.77-5 .28 normal Not Available [facility] ([facility]) [address] [facility], [place], [address], 01/19/2025 08:36:16 01/10/20 25 01/10/2025 CBC WITH DIFFE RENTI AL/PL ATELE T hemoglobin 10.0 g/dL 11.1-1 5.9 below low normal Not Available [facility] ([facility]) [address] [facility], [place], [address], 01/19/2025 08:36:16 01/10/20 25 01/10/2025 CBC WITH DIFFE RENTI AL/PL ATELE T hematocrit 33.3 % 34.0-4 6.6 below low normal Not Available [facility] ([facility]) [address] [facility], [place], [address], 01/19/2025 08:36:16 01/10/20 25 01/10/2025 CBC WITH DIFFE RENTI AL/PL ATELE T MCV 69 fL 79-97 below low normal Not Available [facility] ([facility]) [address] [place], [address], 01/19/2025 08:36:16 01/10/20 25 01/10/2025 CBC WITH DIFFE RENTI AL/PL ATELE T MCH 20.6 pg 26.6-3 3.0 below low normal Not Available [facility] ([facility]) [address] [place], [address], 01/19/2025 08:36:16 01/10/20 25 01/10/2025 CBC WITH DIFFE RENTI AL/PL ATELE T MCHC 30.0 g/dL 31.5-3 5.7 below low normal Not Available [facility] ([facility]) [address] [place], [address], 01/19/2025 08:36:16 01/10/20 25 01/10/2025 CBC WITH DIFFE RENTI AL/PL ATELE T RDW 14.7 % 11.7-1 5.4 Not Available [facility] ([facility]) [address] [facility], [place], [address], 01/19/2025 08:36:16 01/10/20 25 01/10/2025 CBC WITH DIFFE RENTI AL/PL ATELE T platelets 265 x10e3 /uL 150-45 0 normal Not Available [facility] ([facility]) [address] [facility], [place], [address], 01/19/2025 08:36:16 01/10/20 25 01/10/2025 CBC WITH DIFFE RENTI AL/PL ATELE T neutrophils 66 % not estab. normal Not Available [facility] ([facility]) [address] [facility], [place], [address], 01/19/2025 08:36:16 01/10/20 25 01/10/2025 CBC WITH DIFFE RENTI AL/PL ATELE T lymphs 24 % not estab. normal Not Available [facility] ([facility]) [address] [facility], [place], [address], 01/19/2025 08:36:16 01/10/20 25 01/10/2025 CBC WITH DIFFE RENTI AL/PL ATELE T monocytes 8 % not estab. normal Not Available [facility] ([facility]) [address] [facility], [place], [address], 01/19/2025 08:36:16 01/10/20 25 01/10/2025 CBC WITH DIFFE RENTI AL/PL ATELE T eos 2 % not estab. normal Not Available [facility] ([facility]) [address] [facility], [place], [address], 01/19/2025 08:36:16 01/10/20 25 01/10/2025 CBC WITH DIFFE RENTI AL/PL ATELE T basos 0 % not estab. normal Not Available [facility] ([facility]) [address] [facility], [place], [address], 01/19/2025 08:36:16 01/10/20 25 01/10/2025 CBC WITH DIFFE RENTI AL/PL ATELE T immature cells PRE WAVE ASSEMBLER Not Available [facility] ([facility]) [address] [facility], [place], [address], 01/19/2025 08:36:16 01/10/20 25 01/10/2025 CBC WITH DIFFE RENTI AL/PL ATELE T neutrophils (absolute) 4.7 x10e3 /uL 1.4-7. 0 normal Not Available [facility] ([facility]) [address] [facility], [place], [address], 01/19/2025 08:36:16 01/10/20 25 01/10/2025 CBC WITH DIFFE RENTI AL/PL ATELE T lymphs (absolute) 1.7 x10e3 /uL 0.7-3. 1 normal Not Available [facility] ([facility]) [address] [place], [address], 01/19/2025 08:36:16 01/10/20 25 01/10/2025 CBC WITH DIFFE RENTI AL/PL ATELE T monocytes(ab solute) 0.6 x10e3 /uL 0.1-0. 9 normal Not Available [facility] ([facility]) [address] [place], [address], 01/19/2025 08:36:16 01/10/20 25 01/10/2025 CBC WITH DIFFE RENTI AL/PL ATELE T eos (absolute) 0.1 x10e3 /uL 0.0-0. 4 normal Not Available [facility] ([facility]) [address] [place], [address], 01/19/2025 08:36:16 01/10/20 25 01/10/2025 CBC WITH DIFFE RENTI AL/PL ATELE T baso (absolute) 0.0 x10e3 /uL 0.0-0. 2 normal Not Available [facility] ([facility]) [address] [facility], [place], [address], 01/19/2025 08:36:16 01/10/20 25 01/10/2025 CBC WITH DIFFE RENTI AL/PL ATELE T immature granulocytes 0 % not estab. Not Available [facility] ([facility]) [address] [facility], [place], [address], 01/19/2025 08:36:16 01/10/20 25 01/10/2025 CBC WITH DIFFE RENTI AL/PL ATELE T immature grans (abs) 0.0 x10e3 /uL 0.0-0. 1 Not Available [facility] ([facility]) [address] [facility], [place], [address], 01/19/2025 08:36:16 01/10/20 25 01/10/2025 CBC WITH DIFFE RENTI AL/PL ATELE T NRBC PRE WAVE ASSEMBLER Not Available [facility] ([facility]) [address] [facility], [place], [address], 01/19/2025 08:36:16 01/10/20 25 01/10/2025 CBC WITH DIFFE RENTI AL/PL ATELE T hematology comments: PRE WAVE ASSEMBLER Not Available [facility] ([facility]) [address] [facility], [place], [address], 01/19/2025 08:36:16 01/10/20 25 01/10/2025 COMP. METAB OLIC PANEL (14) glucose 74 mg/dL 70-99 normal Not Available [facility] ([facility]) [address] [place], [address], 01/19/2025 08:36:18 01/10/20 25 01/10/2025 COMP. METAB OLIC PANEL (14) BUN 12 mg/dL 6-20 normal Not Available [facility] ([facility]) [address] [facility] [place], [address], 01/19/2025 08:36:18 01/10/20 25 01/10/2025 COMP. METAB OLIC PANEL (14) creatinine 0.60 mg/dL 0.57-1 .00 normal Not Available [facility] ([facility]) [address] [place], [address], 01/19/2025 08:36:18 01/10/20 25 01/10/2025 COMP. METAB OLIC PANEL (14) eGFR 123 mL/mi n/1.7 3 >59 normal Not Available [facility] ([facility]) [address] [place], [address], 01/19/2025 08:36:18 01/10/20 25 01/10/2025 COMP. METAB OLIC PANEL (14) BUN/creatini ne ratio 20 9-23 normal Not Available [facility] ([facility]) [address] [facility] [place], [address], 01/19/2025 08:36:18 01/10/20 25 01/10/2025 COMP. METAB OLIC PANEL (14) sodium 139 mmol/ L 134-14 4 normal Not Available [facility] ([facility]) [address] [facility] [place], [address], 01/19/2025 08:36:18 01/10/20 25 01/10/2025 COMP. METAB OLIC PANEL (14) potassium 4.1 mmol/ L 3.5-5. 2 normal Not Available [facility] ([facility]) [address] [facility] [place], [address], 01/19/2025 08:36:18 01/10/20 25 01/10/2025 COMP. METAB OLIC PANEL (14) chloride 103 mmol/ L 96-106 normal Not Available [facility] ([facility]) [address] [facility] [place], [address], 01/19/2025 08:36:18 01/10/20 25 01/10/2025 COMP. METAB OLIC PANEL (14) carbon dioxide, total 21 mmol/ L 20-29 normal Not Available [facility] ([facility]) [address] [place], [address], 01/19/2025 08:36:18 01/10/20 25 01/10/2025 COMP. METAB OLIC PANEL (14) calcium 9.0 mg/dL 8.7-10 .2 normal Not Available [facility] ([facility]) [address] [place], [address], 01/19/2025 08:36:18 01/10/20 25 01/10/2025 COMP. METAB OLIC PANEL (14) protein, total 7.3 g/dL 6.0-8. 5 normal Not Available [facility] ([facility]) [address] [place], [address], 01/19/2025 08:36:18 01/10/20 25 01/10/2025 COMP. METAB OLIC PANEL (14) albumin 4.8 g/dL 3.9-4. 9 normal Not Available [facility] ([facility]) [address] [place], [address], 01/19/2025 08:36:18 01/10/20 25 01/10/2025 COMP. METAB OLIC PANEL (14) globulin, total 2.5 g/dL 1.5-4. 5 Not Available [facility] ([facility]) [address] [place], [address], 01/19/2025 08:36:18 01/10/20 25 01/10/2025 COMP. METAB OLIC PANEL (14) bilirubin, total 0.3 mg/dL 0.0-1. 2 normal Not Available [facility] ([facility]) [address] [place], [address], 01/19/2025 08:36:18 01/10/20 25 01/10/2025 COMP. METAB OLIC PANEL (14) alkaline phosphatase 104 IU/L 44-121 normal Not Available [facility] ([facility]) [address] [place], [address], 01/19/2025 08:36:18 01/10/20 25 01/10/2025 COMP. METAB OLIC PANEL (14) AST (SGOT) 16 IU/L 0-40 normal Not Available [facility] ([facility]) [address] [place], [address], 01/19/2025 08:36:18 01/10/20 25 01/10/2025 COMP. METAB OLIC PANEL (14) ALT (SGPT) 11 IU/L 0-32 normal Not Available [facility] ([facility]) [address] [place], [address], 01/19/2025 08:36:18 01/10/20 25 01/10/2025 LIPID PANEL cholesterol, total 161 mg/dL 100-19 9 normal Not Available [facility] ([facility]) [address] [place], [address], 01/19/2025 08:36:18 01/10/20 25 01/10/2025 LIPID PANEL triglyceride s 94 mg/dL 0-149 normal Not Available [facility] ([facility]) [address] [place], [address], 01/19/2025 08:36:18 01/10/20 25 01/10/2025 LIPID PANEL HDL cholesterol 60 mg/dL >39 normal Not Available [facility]) [address] [place], [address], 01/19/2025 08:36:18 01/10/20 25 01/10/2025 LIPID PANEL VLDL cholesterol jessica 17 mg/dL 5-40 Not Available [facility] ([facility]) [address] [place], [address], 01/19/2025 08:36:18 01/10/20 25 01/10/2025 LIPID PANEL LDL chol calc ([facility]) 84 mg/dL 0-99 Not Available [facility]) [address] [facility], [place], [address], 01/19/2025 08:36:18 01/10/20 25 01/10/2025 LIPID PANEL LDL calc comment: PRE WAVE ASSEMBLER Not Available [facility] ([facility]) [address] [facility], [place], [address], 01/19/2025 08:36:18 01/10/20 25 01/19/2025 VITAM IN E vitamin E(alpha tocopherol) 14.6 mg/L 5.9-19 .4 Not Available [facility] ([facility]) [address] [facility], [place], [address], 01/19/2025 08:36:19 01/10/20 25 01/19/2025 VITAM IN [...] in E defic ient. Not Available [facility] ([facility]) [address] [facility], [place], [address], 01/19/2025 08:36:19 01/10/20 25 01/10/2025 HEMOG LOBIN A1C hemoglobin A1C 5.1 % 4.8-5. 6 normal Predi abete s: 5.7 - 6.4 Diabe [place]: >6.4 Glyce quintin contr ol for adult s with diabe [place]: <7.0 Not Available [facility] ([facility]) [address] [facility], [place], [address], 01/19/2025 08:36:19 01/10/20 25 01/10/2025 FOLAT E (FOLI C ACID) , SERUM folate (folic acid), serum 11.6 NG/mL >3.0 normal A serum folat e victoriano ntrat ion of less than 3.1 ng/mL is consi dered to repre sent clini jessica defic iency . Not Available [facility] ([facility]) [address] [facility], [place], [address], 01/19/2025 08:36:20 01/10/20 25 01/19/2025 VITAM IN [...] Drug Admin istra tion. Not Available [facility] ([facility]) [address] [facility], [place], [address], 01/19/2025 08:36:21 01/10/2001/10/2025 VITAM IN D, 25-HY [...] um and D. Amalia red [place]: [facility] . 2. Sami ramos MF, Rose houston [place], Arian off-F dylan i NAGY, et al. Evalu ation , treat ment, and preve ntion of vitam in D defic iency : an Endoc rine Socie ty clini jessica pract ice guide line. JCEM. 2010; 96(7) :1911 -30. Not Available [facility] ([facility]) [address] [place], [address], 01/19/2025 08:36:21 01/10/20 25 01/13/2025 VITAM IN B1 (THIA MINE) , BLOOD vit. B1, whole blood 136.6 nmol/ L 66.5-2 00.0 Not Available [facility] ([facility]) [address] [place], [address], 01/19/2025 08:36:22 01/10/20 25 01/15/2025 METHY LMALO HIWOT ACID, SERUM methylmaloni c acid, serum 177 nmol/ L 0-378 Not Available [facility] ([facility]) [address] [place], [address], 01/19/2025 08:36:22 01/10/20 25 01/10/2025 PREAL BUMIN prealbumin 23 mg/dL 14-35 Not Available [facility] ([facility]) [address] [place], [address], 01/19/2025 08:36:23 04/15/20 24 04/15/2024 MRI ABD w/w/O [facility] [address] [place] [address] Phone: Fax: Name: WALLY FENG Exam Date: 024 : [birth year] Age 28 years Gender : F Access ion: [id number] Physic jarett: NADIA DRUMMOND Facili ty: [place] Facili ty HSV: Outpat ient Exam: MRI ABD W/W/O FINAL REPORT CLINIC AL HISTOR Y: Abnorm al spot on left kidney Histor y of kidney stones H/o gastri c sleeve , cholec ystect anila? COMPAR JOHN: CT abdome n and pelvis FINDIN GS: Multip lanar MR imagin g [...] Thank you for referr WALLY Villanueva to [facility]. Legall y carter gallego by TARA Aviles III 04-15 15:49: 37 CC'ed Logic: Orderi ng Provid er: RODERICK GORE CC Provid er: RODERICK GORE Attend ing Provid er: RODERICK GORE Referr ing Provid er: RODERICK GORE Admitt ing Provid er: RODERICK GORE [email or web address] [facility] [address], [place], [address], 01/09/2025 13:34:49 03/25/20 25 03/25/2025 XR, knee No observ ation record ed. ala[address], [place], [address], 03/27/2025 18:08:14 Result Notes None recorded. Problems Name Problem SNOMED Code Status Onset Date Resolution Date Notes Provider Name and Address Organization Details Recorded Time Polycystic ovary syndrome 820725891 Active 2021 YONATHAN Anderson [address] , [place], [address] , [place] - [facility] - [place] & [place] 2 09:00:55 Vitamin D deficiency 68091105 Active [address], [place] [address] [facility], [place], [address] , [place] [facility] [place] 2 16:39:55 Laparoscop ic sleeve gastrectom y Active [address], [place] [address] [facility], [place], [address] , [place] [facility] [place] 2 16:39:55 Hypothyroi dism 26004592 Active [address], [place] [address] [facility] [place], [address] , [place] [facility] [place] & [place] 2 16:39:56 Obesity 736363524 Active [address], [place] [address] [facility], [place], [address] , [place] [facility] [place] 2 16:39:55 Acquired hypothyroi dism 800028191 Active MUN[address], [place] [address] [facility], [place], [address] , [place] [facility] [place] 2 16:39:55 Indigestio n 468258277 Active [address], [place] [address] [facility] [place], [address] , [place] [facility] [place] 2 16:39:55 Disorder of gastrointe stinal tract 199165775 Active [address], [place] [address] [facility] [place], [address] , [place] [facility] [place] & [place] 2 16:39:55 Shoulder strain 376922786 Active [address], [place] [address] [facility], [place], [address] , [place] [facility] [place] 2 16:39:55 Prolactin level above reference range 682119526 Active [address], [place] [address] [facility], [place], [address] , [place] [facility] [place] 2 16:39:55 Plain X-ray result abnormal 796720038 Active [address], [place] [address] [facility] [place], [address] , [place] [facility] [place] & [place] 2 16:39:55 Polycystic ovaries Active [address], [address] [facility], [place], [address] , [place] [facility] [place] 2 16:39:55 Missed period 98981177 Active [address], [address] [facility] [place], [address] , [place] [facility] 2 16:39:55 Mild depression 049626366 Active [address]UN[address], [address] [facility] [place], [address] , [place] [facility] [place] 2 16:39:55 Stress 54846030 Active [address]UN[address], [address] [facility] [place], [address] , [place] [facility] [place] 2 16:39:55 Mixed hyperlipid emia 273543207 Active [address]UNIR [address], [address] [facility], [place], [address] , [place] [facility] 2 16:39:55 Liver enzymes level above reference range 032459403 Active [address]UNIR [address], [address] [facility] [place], [address] , [place] 2 16:39:55 Recurrent major depressive episodes, moderate 621438839 Active [address], [address] [facility] [place], [address] , [place] 2 16:39:55 Mood disorder 68222345 Active [address]UN[address], [address] [facility] [place], [address] , [place] 2 16:39:55 Essential hypertensi on 11578219 Active [address]UNIR [address], [place] [address] [facility] [place], [address] , [place] 2 16:39:55 Steatotic liver disease 601700380 Active [address]UN[address], [place] [address] [facility] [place], [address] , [place] 2 16:39:55 Dysthymia 44403038 Active [address]UN[address], [address] [facility] [place], [address] , [place] 2 16:39:55 Thyroid nodule 299439174 Active [address]UNIR [address], [place] [address] [facility] [place], [address] , [place] [facility] & [place] 2 16:39:55 Morbid obesity 346132273 Active [address]UNIR [address], [place] [address] [facility], [place], [address] , [place] [facility] & [place] 2 16:39:55 Goiter 0635652 Active [address]UNIR [address], [address] [facility] [place], [address] [place] [address] , [place] [facility] & [place] 2 16:39:56 Elevated level of transamina se and lactic acid dehydrogen ase 165445549 Active [address]UNIR [address], [address] [place], [place], [address] [place] [address] , [facility] - [facility] & [place] 2 16:39:56 Nausea 608683589 Active [address], [address] [place], [address] [place] [address] , [place] [facility] & [place] 2 16:39:56 Body mass index 30+ - obesity 663833921 Active [address]UNIR [address], [address] [place], [address] [place] [address] , [place] [facility] & [place] 2 16:39:56 Irregular intermenst rual bleeding 20963463 Active MUNIR GARCIA RD, LD [address] [place], [place], [address] [place] [address] , [place] [facility] [facility] & [place] 2 16:39:56 Anxiety 80165467 Active MUNIR GARCIA RD, LD [address] [place], [place], [address] [place] [address] , [place] [facility] & [place] 2 16:39:56 Nodule of lung 253837777 Active MUNIR GARCIA RD, LD [address] [place], [place], [address] [place] [address] , [place] [facility] & [place] 2 16:39:56 Carpal tunnel syndrome of right wrist 4868636876642 08 Active MUNIR POTTER[address] GARCIA RD, LD [address], [place], [address] , [place] & [place] 2 16:39:56 Abdominal pain 31152898 Active MUNIR POTTERMICHAEL GARCIA RD, LD [address], [place], [address] , [place] & [place] 2 16:39:56 Pain in throat 193897991 Active 2021 TREMAYNE ARROYO null, [place] & [place] 2 17:14:51 Intentiona l weight loss 326186072 Active 2021 Angelito Estrada, MATTHEW, MULTISKILL OPERATOR, PRE WAVE ASSEMBLER-C [address], [place], [address] , [place] & [place] 2 11:51:56 Heartburn 32537176 Active 2022 Angelito Estrada, MATTHEW, MULTISKILL OPERATOR, PRE WAVE ASSEMBLER-C [address], [place], [address] , [place] & [place] 3 13:15:59 Fatigue 39162842 Active 2023 Angelito Estrada, MATTHEW, MULTISKILL OPERATOR, PRE WAVE ASSEMBLER-C 114[address] [facility], [place], [address] , [place] & [place] 4 10:28:55 Problem Notes None recorded. Procedures Surgical History Date Name Laterality Status Provider Name and Address Organization Details Recorded Time 08/06 Laparoscopy completed Isabel Mccord [place] & [place] 5 11:39:58 11/06 Surgical Services Asst Surgery completed Isabel Mccord [place] & [place] 5 11:29:41 10/06 Date of Last Pap Smear completed Ela Castillo [place] & [place] 4 11:58:37 09/23 laparoscopic sleeve gastrectomy completed Ana Moya [place] & [place] 2 13:07:03 07/15 esophagogastroduodenoscopy completed Karyl conner [place] & [place] 5 11:42:14 11/06 Carpal Tunnel Surgery completed Paige [place]choa [place] & [place] 4 15:50:19 06/16 fine needle biopsy of thyroid completed Isabel [place] & [place] 5 11:39:48 02/10 esophagogastroduodenoscopy completed Karly da [place] & [place] 5 11:33:29 11/06 Knee Surgery completed Isabel [place] & [place] 5 11:37:12 11/06 Ovarian Cystectomy completed Isabel [place] & [place] 5 11:37:19 11/06 cholecystectomy completed Paigemena Ochoa [place] & [place] 4 15:49:18 11/06 extraction of wisdom tooth completed Karly da [place] & [place] 5 11:37:41 11/06 tonsillectomy completed Paige LEAV[place] - [place] - [place] & [place] 4 15:49:26 11/06 ENT Surgery completed Isabel [place] & [place] 5 11:29:41 Imaging Results None recorded. Procedure Notes None recorded. Medical Equipment None Reported. Allergies Allergen ID Allergen Name Allergen Category Reaction Reaction Severity Criticality Documentation Date Start Date Code Code System Note Provider Name and Address Organization Details Recorded Time 88322 amoxicill in medicatio n nausea rash vomiting Not available Not available Not available low 07/21/2022 723 RxNorm Hever ates cepha lospo rins Isabel [place] null, [place] & [place] 5 11:58:46 81134 phentermi ne medicatio n tachycard ia moderate Not available 07/21/[address], LD [address], [place], [address], [facility] - NT [facility] & [place] 2 16:40:31 942548 Non-stero idal anti-infl ammatory agent (product) medicatio n other Not available low 08/29/2024 32474 005 SNOMED Cant take with recen t gastr ic sleev e surge ry Isabel Woodsamer null, [place] - [facility] & [place] 5 11:58:59 84586 Derm-Appl y medicatio n Not available Not available low 08/31/2022 17034 UNK derma cortez Isabel Woodsamer null, [place] - [facility] & [place] 5 11:59:05 13885 hydrocodo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
--- OUTSIDE RECORDS SUMMARY | 2025-04-24 17:27 | XMS_ITS | Encounter Summary ---
Author Organization [employer] Address [address] [place] [address] Care Team Providers Care Family Services Manager Name Role Phone Unavailable Primary Care Provider Unavailabl e Encounter Details Date Type Department Care Team (Late st Contact Info) Description 09/24/2019 Transcribed Document [facility] [address] [place] [address] ProviderLeón MD [address] [place], [place] [id number] Social History Tobacco Use Types Packs/Day Years Used Date Smoking Tobacco: Never Assessed Comments Unknown Sex and Gender Information Value Date Recorded Sex Assigned at Not on file Legal Sex Female 6:09 PM CDT Gender Identity Not on file Sexual Orientation Not on file documented as of this encounter Miscellaneous Notes * Cerner Conversion Note - Historical ProviderMD - 09/24/2019 5:36 AM FILTRATION SUPERVISOR [place] Suicide Severity Rating Scale (C-SSRS) Entered On: 09/24/2019 6:25 EST Performed On: 09/24/2019 6:24 EST by RENETTA NIXON RN [place] Suicide Severity Rating Scale (C-SSRS) CSSRS Past Month Wish to be : No CSSRS Past Month Suicidal Thoughts : No CSSRS Lifetime Suicide Behavior : No Suicide Severity Rating Score : 0 Suicide Severity Rating : No Additional Care Required at this time RENETTA NIXON RN - 09/24/2019 6:24 EST Electronically signed by Jim[facility] Conversion Agricultural Specialist Kimberly at 02/19/2023 9:41 AM CDT documented in this encounter Plan of Treatment Not on file documented as of this encounter Visit Diagnoses Not on filedocumented in this encounter
--- OUTSIDE RECORDS SUMMARY | 2025-04-24 17:27 | XMS_ITS | Encounter Summary ---
Author Organization Healthcare Address [address] [place] [address] Care Team Providers Care Air Marshal Name Role Phone Nadai Goodson MD Primary Care Provider [phone] Encounter Details Date Type Department Care Team (Latest Contact Info) Description 04/17/2025 Travel Social History Tobacco Use Types Packs/Day Years Used Date Smoking Tobacco: Never Smokeless Tobacco: Never Alcohol Use Standard Drinks/Week Comments No 0 (1 standard drink = 0.6 oz pur e alcohol) PHQ-2 Answer Date Recorded Patient Health Questionnaire-2 Score 0 04/08/2025 [place] Depression Scale Answer Date Recorded [place] Depression Scale Total 0 02/23/2024 The thought [...] EDT Procedure Visit Obstetrics & Gynecology [address] [place] [address] Tres Ybarra MD [address] [place] [address] documented as of this encounter [...] documented as of this encounter Care Teams Air Marshal Relationship Specialty Start Date End Date Nadia Goodson MD [address] [place] [address] PCP - General 01/17/23 documented as of this encounter
--- OUTSIDE RECORDS SUMMARY | 2025-04-24 17:27 | XMS_ITS | Referral Summary ---
Author Organization [employer] Address [address] [place] [address] Care Team Providers Care Patch Worker Name Role Phone Unavailable Primary Care Provider [...]
--- OUTSIDE RECORDS SUMMARY | 2025-04-24 17:27 | XMS_ITS | Encounter Summary ---
Author Organization [employer] Address [address] [place] [address] Care Team Providers Care Outside Dealer Sales Representative Name Role Phone Unavailable Primary Care Provider Unavailabl e Encounter Details Date Type Department Care Team (Late st Contact Info) Description 09/24/2019 Transcribed Document [facility] [place] [facility] [address] [place] [address] ProviderLeón MD [facility] [place], [place] [address] Social History Tobacco Use Types Packs/Day Years Used Date Smoking Tobacco: Never Assessed Comments Unknown Sex and Gender Information Value Date Recorded Sex Assigned at Not on file Legal Sex Female 6:09 PM CDT Gender Identity Not on file Sexual Orientation Not on file documented as of this encounter Miscellaneous Notes * Cerner Conversion Note - León ProviderMD - 09/24/2019 5:36 AM CLINICAL RN ED Assessment Entered On: 09/24/2019 6:25 EST Performed On: 09/24/2019 6:24 EST by RENETTA NIXON RN ED Quick Look Assessment Level of Consciousness : Alert, Awake RENETTA NIXON RN - 09/24/2019 6:24 EST ED General-Functional Assess Information Obtained From : Patient Communication Barrier : None Primary Language : Greenlandic Any Spiritual/Cultural Needs or Requests : No Currently in Unsafe Situation : No RENETTA NIXON RN - 09/24/2019 6:24 EST Social Habits Smoking Status : Never (less than 100 in lifetime; none in last 30 days) Smokeless Tobacco Status : Never Desires Tobacco Cessation Calc : 0 RENETTA NIXON RN - 09/24/2019 6:24 EST Social History (As Of: 09/24/2019 06:25:42 EST) Tobacco: Smoking Status Never smoker. (Last Updated: 12/23/2017 14:17:18 EST by ODILON, ETTA, RN) Alcohol: Alcohol Use History No. (Last Updated: 12/23/2017 14:17:20 EST by ETTA DONALD, RN) Substance Abuse: Drug Use Hx: No. (Last Updated: 12/23/2017 14:17:24 EST by ETTA DONALD, RN) EENT Assessment EENT Assessment WDL : [facility] LEXX NIXONMOLLY - 09/24/2019 6:24 EST Cardiovascular ASMT, ED Cardiovascular Assessment WDL : [facility] HUSSAIN OZ JACKSON - 09/24/2019 6:24 EST Pulses Grid Radial Pulse, Left : 2+ normal Radial Pulse, Right : 2+ normal HUSSAIN, RENETTA - 09/24/2019 6:24 EST Respiratory Respiratory Assessment WDL : [facility] HUSSAINRENETTA RN - 09/24/2019 6:24 EST Breath Sounds Assessment Grid All Lobes Breath Sounds : Clear RENETTA NIXON RN - 09/24/2019 6:24 EST Gastrointestinal ED Gastrointestinal Assessment WDL : [facility] with exceptions Gastrointestinal Symptoms : Abdominal pain RENETTA NIXON RN - 09/24/2019 6:24 EST Genitourinary Assessment, ED Genitourinary Assessment WDL : [facility] with exceptions Genitourinary Symptoms : Vaginal bleeding RENETTA NIXON RN - 09/24/2019 6:24 EST Musculoskeletal Musculoskeletal Assessment WDL : [facility] RENETTA NIXON RN - 09/24/2019 6:24 EST Integumentary Assessment Integumentary Assessment WDL : [facility] RENETTA NIXON RN - 09/24/2019 6:24 EST Neurologic ASMT, ED Neurologic Assessment WDL : [facility] RENETTA NIXON RN - 09/24/2019 6:24 EST Electronically signed by [facility], [facility] Conversion Frozen Foods Manager Cerner at 02/19/2023 9:43 AM CDT documented in this encounter Plan of Treatment Not on file documented as of this encounter Visit Diagnoses Not on filedocumented in this encounter
--- OUTSIDE RECORDS SUMMARY | 2025-04-24 17:27 | XMS_ITS | Data Portability ---
Author Organization [facility] EFRAIN Jones MOBILE CLOSED Address [address] [place] [address] Care Team Providers Care Integrity Manager Name Role Phone SOFÍA GOODSON Primary Care Provider SOFÍA GOODSON Referring Provider Assessment No assessment recorded. Plan of Treatment Reminders Order Date Submit Date Provider Last Modified By Organization Details Last Modified Time Details Appointments None recorded. Lab urinalysis panel, auto 2019 020 [facility] Cu/Lc Urology [address], [facility], [place], [address], 0 22:32:25 culture, urine [address] Laboratory, [address] [place] [address], [address], 0 22:32:25 Referral None recorded. Procedures None recorded. Surgeries None recorded. Imaging None recorded. Medication Orders Macrodanti n 50 mg capsule 2019 020 INTERFACE [facility], [address] [place], [address], 0 17:35:08 Patient TargetsNo targets recorded. Patient Instructions Encounter Date Encounter Id Patient Instructions Last Modified By Organization Details Last Modified Time 01/28/2020 [id number] urine infected today - sx mild only, will culture and initiate approp.therapy soon Rx daily macrodantin now and cont over the next 2-3 months She does have some dyspareunia and sl tender urethra Consider/discusse d further eval imaging, cysto and instillation tx ov 1 mo with ua [email or web address] Not available 01/28/2020 17:36:54 Reason for Referral None Reported. Results Created Date Observation Date Name Description Value Unit Range Abnormal Flag Note LastModifiedBy Organization Detail LastModifiedTime 01/28/20 20 01/28/2020 urina lysis panel , auto Unknown Analyte Clean Catch Not Available Cu/Lc Urolo gy [address] [place], [address], 01/28/2020 14:16:01 01/28/20 20 01/28/2020 urina lysis panel , auto Unknown Analyte Yellow Not Available Cu/Lc Urology [address], [address], 01/28/2020 14:16:01 01/28/20 20 01/28/2020 urina lysis panel , auto Unknown Analyte Clear Not Available Cu/Lc Urology [address], [address], 01/28/2020 14:16:01 01/28/20 20 01/28/2020 urina lysis panel , auto Unknown Analyte 1.015 Not Available Cu/Lc Urology [address], [address], 01/28/2020 14:16:01 01/28/20 20 01/28/2020 urina lysis panel , auto Unknown Analyte 5.0 Not Available Cu/Lc Urology [address], [address], 01/28/2020 14:16:01 01/28/20 20 01/28/2020 urina lysis panel , auto Unknown Analyte [address]/ul (++) Not Available Cu/Lc Urolo gy [address], [address], 01/28/2020 14:16:01 01/28/20 20 01/28/2020 urina lysis panel , auto Unknown Analyte Negati ve Not Available Cu/Lc Urolo gy [address] [facility], [place], [address], 01/28/2020 14:16:01 01/28/20 20 01/28/2020 urina lysis panel , auto Unknown Analyte Negati ve Not Available Cu/Lc Urolo gy [address] [facility], [place], [address], 01/28/2020 14:16:01 01/28/20 20 01/28/2020 urina lysis panel , auto Unknown Analyte Normal Not Available Cu/Lc Urology [address] [facility], [place], [address], 01/28/2020 14:16:01 01/28/20 20 01/28/2020 urina lysis panel , auto Unknown Analyte Negati ve Not Available Cu/Lc Urolo gy [address] [facility], [place], [address], 01/28/2020 14:16:01 01/28/20 20 01/28/2020 urina lysis panel , auto Unknown Analyte Normal Not Available Cu/Lc Urology [address] [facility], [place], [address], 01/28/2020 14:16:01 01/28/20 20 01/28/2020 urina lysis panel , auto Unknown Analyte Negati ve Not Available Cu/Lc Urolo gy [address] [place], [address], 01/28/2020 14:16:01 01/28/20 20 01/28/2020 urina lysis panel , auto Unknown Analyte Negati ve Not Available Cu/Lc Urolo gy [address] [place], [address], 01/28/2020 14:16:01 01/28/20 20 01/28/2020 urina lysis panel , auto Unknown Analyte Automa eliud Not Available Cu/Lc Urolo gy [address] [place], [address], 01/28/2020 14:16:01 01/28/20 20 01/28/2020 urina lysis panel , auto Unknown Analyte 5 - 10 Not Available Cu/Lc Urology [address] [facility], [place], [address], 01/28/2020 14:16:01 01/28/20 20 01/28/2020 urina lysis panel , auto Unknown Analyte None Seen Not Available Cu/Lc Urolo gy [address] [facility], [place], [address], 01/28/2020 14:16:01 01/28/20 20 01/28/2020 urina lysis panel , auto Unknown Analyte None Seen Not Available Cu/Lc Urolo gy [address] [facility], [place], [address], 01/28/2020 14:16:01 01/28/20 20 01/28/2020 urina lysis panel , auto Unknown Analyte 4+ Not Available Cu/Lc Urology [facility] [address] [facility], [place], [address], 01/28/2020 14:16:01 01/28/20 20 01/28/2020 cultu re, urine results Sourc e: CCUR Colle cted: 01/27 14:50 Site: Recei shae : 01/27 19:32 URINE SCREE N(CUL TURE) FINAL 01/29 12:53 01/29 COLON Y COUNT : > 100,0 00 CFU/M L Three or more isola carolina; mixed skin luca . Not Available [facility] [address] [place], [address], 01/30/2020 12:53:25 Result Notes None recorded. Procedures Surgical History Date Name Laterality Status Provider Name and Address Organization Details Recorded Time Tonsillectomy completed [facility] 01/28/2020 14:04:41 [place] Teeth Extraction completed [facility] 01/28/2020 14:04:48 Ovarian Cystectomy completed Sofía sue [facility] 01/28/2020 14:04:55 Imaging Results None recorded. Procedure Notes None recorded. Medical Equipment None Reported. Allergies Allergen ID Allergen Name Allergen Category Reaction Reaction Severity Criticality Documentation Date Start Date Code Code System Note Provider Name and Address Organization Details Recorded Time 103610 amoxicill in medicatio n Not available Not available Not available 01/28/2020 723 RxNorm Sofía Collado [facility] 0 14:00:08 Medications Name Sig Start Date Stop Date Status Note LastModified by Organization Details LastModified Time sertraline 100 mg tablet Take 1 tablet every day by oral route. active Not Available Not Available No t Available Macrodantin 50 mg capsule Take 1 capsule every 6 hours by oral route. 020 active Not Available Not Available Not Avai lable metformin ER 750 mg tablet,extend ed release 24 hr Take 1 tablet every day by oral route. active Not Available Not Available No t Available bupropion HCl XL 300 mg 24 hr tablet, extended release Take 1 tablet every day by oral route. active Not Available Not Available No t Available Vitals Date Recorded Body height Body mass index (BMI) Body weight Provider Name and Address Organization Details Last Updated DateTime 01/28/2020 165.1 cm 37.4 kg/m2 812543.28 g Sofía Collado [facility] 01/28/2020 13:59:49 Social History Question Answer Notes LastModified by Organizat ion Details LastModified Time Tobacco Smoking Status Never Smoker Sofía Collado [facility] 01/28/2020 14:04:22 Marital Status Informatio n not available 01/28/2020 Sex: Unknown Functional Status Question Answer Note LastModified by Organizat ion Details LastModified Time What is your level of alcohol consumption? 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 Family History Relationship Description Onset Age of this Age Resolved Age Notes LastModified by Organization Details LastModified Time Father Diabetes mellitus Not available 2019 14:04:19 Mother Diabetes mellitus Not available 2019 14:04:19 Medical History Condition Response Allergies/Hayfever Y Anxiety Disorder Y Anemia Y Thyroid Disorder Y Heart Arrhythmia Y Asthma Y Depression Y Gynecological HistoryNo gynecological history recorded. Obstetrics History GPAL:G 0 P 0 0 0 0 Past Encounters Encounter ID Performer Location Encounter Start Date Encounter Closed Date Diagnosis/Indication Diagnosis SNOMED-CT Code Diagnosis ICD10 Code Diagnosis Note [id number] [facility] [address] [facility] [place] [address] 01/28/2020 13:21:02 01/30/2020 10:40:37 Recurrent urinary tract infection 532439483 N39.0 Acute urin jacquie tract infection 643394382 N39.0 Aram hematuria 32400427 5 R31.0 Dyspareunia 82335655 N94 .10 Health Concerns Section Related Observation LastModified by Organization Detai ls LastModified Time None Recorded Concern Status LastModified by Organization Details LastModified Time None Recorded Advance Directives Directive None Recorded Payers Insurance Date Sequence Insurance Name Policy Number Policy Wilson Covered Member ID Wilson Member ID Guarantor Name 01/28/2020 1 [place] [id number] [employer] Deal [id number] Sara Deal 03/02/2020 1 [place] [id number] Jeremiah Deal [id number] [employer] Deal Notes Date Note Type Note Provider Name and Address Organization Details Recorded Time 01/28/2020 text/html 24 yo new female here today referred by Dr. Goodson for recurrent UTI. She states that 3 months ago she was sent to the ER for CT scan due to recurrent UTI and hematuria. She had a CT scan to rule out kidney stone, her CT scan was negative. She was last treated 3 weeks ago. She has slight symptoms/discomfor t. She denies any gross hematuria. She has no other complaints or concerns today. She does c/o dyspareunia. Patient denies current or recent fever, chills, nausea or vomiting. Full PMHx and ROS reviewed and attached - no significant comorbid disease is noted. BELL WALKER MD [facility] [place], [address], [facility] 01/28/2020 17:39:11 OBGyn Episode No OBEpisode recorded.
--- OUTSIDE RECORDS SUMMARY | 2025-04-24 17:28 | XMS_ITS | Encounter Summary ---
Author Organization [employer] Address [address] [place] [id number] Care Team Providers Care Contamination Consultant Name Role Phone Unavailable Primary Care Provider Unavailabl e Encounter Details Date Type Department Care Team (Late st Contact Info) Description 09/24/2019 Transcribed Document [facility] [place] [facility] [place] [address] ProviderLeón MD [address] [place] [id number] Social History Tobacco Use Types Packs/Day Years Used Date Smoking Tobacco: Never Assessed Comments Unknown Sex and Gender Information Value Date Recorded Sex Assigned at Not on file Legal Sex Female 6:09 PM CDT Gender Identity Not on file Sexual Orientation Not on file documented as of this encounter Miscellaneous Notes * Cerner Conversion Note - Historical ProviderMD - 09/24/2019 6:15 AM STONE SANDBLASTER Patient: PAM FENG Age: 24 years Sex: Female : 1995 Associated Diagnoses: Vaginal bleeding; Dysfunctional uterine bleeding; Tachycardia Author: LINDA HOPE DO Basic Information Time seen: Date & time 09/24/2019 06:15:00. Additional information: Chief Complaint from Nursing Triage Note : Chief Complaint 09/24/2019 5:42 EST Chief Complaint Pt c/o fever and vaginal bleeding x2 days. Pt stated she is on her period but the bleeding is more than usual; +abdominal cramping. No med taken HEELER . History of Present Illness 24-year-old female patient with chief complaint of vaginal bleeding. Patient admits to vaginal bleeding since Monday. She states she has episodes where she has normal blood flow with episodes of passing clots. Patient states yesterday she was changing her pad every hour. Patient has history of PCOS. She is on metformin. Patient states she recently started fertility medication last Monday. Patient sees gauge operator Chandan Lucas. Patient is with history of spontaneous 4 months ago. Admits to history of ovarian cyst removal 2014. Admits to hx of opal. Patient states she 102 fever at 6 PM last night. She took ibuprofen around 10 PM. Patient is afebrile on arrival. Review of Systems Constitutional symptoms: Negative except [...] symptoms: Negative except as documented in HPI. Psychiatric symptoms: Negative except as documented in HPI. Health Status Allergies: Nonallergic Reactions (Selected) Severity Not Documented Amoxicillin- C/o - vomiting.. Medications: (Selected) Inpatient Medications Ordered NaCl 0.9% bolus: 1,000 mL, 1,000 mL/Hr, IV Piggyback, 1-Time Documented Medications Documented Zoloft: Oral, Daily, 0 Refill(s) letrozole: mg, Oral, Daily, 0 Refill(s) metFORMIN: Oral, 0 Refill(s). Past Medical/ Family/ Social History Medical history Reviewed as documented in chart. Surgical history: No active procedure history items have been selected or recorded., Reviewed as documented in chart. Family history: No family history items have been selected or recorded., Reviewed as documented in chart. Social history: Social & Psychosocial Habits Alcohol 12/23/2017 Alcohol Use History, Social Habits No Substance Abuse 12/23/2017 Recreational Drug Use History No Tobacco 12/23/2017 Smoking Status Never smoker , Reviewed as documented in chart. Problem list: Active Problems (3) Asthma Hypothyroid PCOS (polycystic ovarian syndrome) , per nurse's notes. Physical Examination Vital Signs Time: 08/17/2015 14:28:00. Vital Signs/Vital Measures 09/24/2019 5:42 EST Systolic Blood Pressure 127 mmHg Diastolic Blood Pressure 81 mmHg Temperature Source Oral Temperature Mode Fahrenheit Temperature, Fahrenheit 97.9 Deg F Clinical Temperature, C 36.6 Deg C Peripheral Pulse Rate 110 bpm HI Respiratory Rate 20 Breaths/Min Oxygen Saturation 100 % Oxygen Therapy Mode Room air . Measurements 09/24/2019 5:42 EST Height Source Stated Height Entry Format [place] Height/Length, MAURITIAN (ft) 5 ft Height/Length MAURITIAN 5 Inch CLINICALHEIGHT 165.1 cm [place] Body Weight 56.59 kg Weight Source, ED Standing scale Weight Entry Format [place] Weight [place] lb 220 lb CLINICALWEIGHT 100 kg Body Surface Area (BSA) 2.06 m2 Body Mass Index 36.7 kg/m2 HI . Oxygen Saturation 09/24/2019 5:42 EST Oxygen Saturation 100 % . General: Alert. Head: Normocephalic, atraumatic. Eye: Pupils are equal, round and reactive to light, intact accommodation, extraocular movements are intact. Ears, nose, mouth and throat: Tympanic membranes clear. Cardiovascular: Regular rate and rhythm. Respiratory: Lungs are clear to auscultation. Gastrointestinal: Soft, Nontender. Genitourinary: Pelvic exam: Copious amount of clots in the vaginal vault. Cervical os closed, bimanual exam: Cervical motion tenderness. Back: Nontender. Musculoskeletal: Normal ROM. Neurological: No focal neurological deficit observed. Psychiatric: Cooperative. Medical Decision Making Documents reviewed: Emergency department nurses' notes. Orders Include Previous Orders (Selected) Inpatient Orders InProcess (In Process) Chlamydia Trachomatis/GC by Danya, Sendout: Ordered Discharge: Ordered (In-Lab) Culture Urine: Completed .Automated Differential: .Urinalysis Microscopic: CBC w/ Auto Diff: CMP Comprehensive Metabolic Panel: ED Adult Fall Risk Assessment: ED Adult Triage: ED C-SSRS: ED Clinical Reconciliation: ED conveyor man: HCG Urine Qualitative: LENNY Prep: NaCl 0.9% bolus: 1,000 mL, 1,000 mL/Hr, IV Piggyback, 1-Time Normal [place] Bolus: 1,000 mL, 1,000 mL/Hr, IV Piggyback, 1-Time Orthostatic Vital Signs: PT/INR Prothrombin Time: PTT: Saline Lock Insert: US Transvaginal Non Ob: Urinalysis w Culture if Indicated: Wet Prep: ibuprofen: 600 mg, Oral, 1-Time . Results review: Lab results : Lab Results 09/24/2019 6:51 EST Urine Type. U CleanCatch Urine Color Red Urine Appearance Cloudy Urine Specific [place] 1.007 Urine pH Dipstick 5.5 LOW Urine Leukocyte Esterase Trace Urine Nitrite Negative Urine Protein Dipstick 30 Urine Glucose Dipstick Negative Urine Ketones Dipstick Negative Urine Urobilinogen Dipstick 0.2 EU/dL Urine Bilirubin Dipstick Negative Urine Blood Dipstick Large Ur RBC TNTC /HPF Ur WBC 2-5 /HPF Ur Bacteria Trace Ur Squamous Epithelial Cells 2-5 /HPF HCG Urine Qualitative Negative 09/24/2019 6:23 EST Sodium Level 137 mmol/L Potassium Level 3.8 mmol/L Chloride Level 108 mmol/L Carbon Dioxide Level 23 mmol/L Anion Gap 10 Glucose Level 112 mg/dL HI Blood Urea Nitrogen 8 mg/dL Creatinine Level 0.72 mg/dL eGFR >60 mL/min/1.73m2 eGFR NonAfrican >60 mL/min/1.73m2 Bun/Creatinine 11.1 Calcium Level 8.3 mg/dL LOW Protein Total 7.1 Gram/dL Albumin Level 3.4 Gram/dL Globulin 3.7 Gram/dL A/G Ratio 0.9 LOW Bilirubin Total 0.4 mg/dL Alk Phos 91 Units/Liter AST 88 Units/Liter HI ALT 125 Units/Liter HI WBC 7.6 K/uL RBC 4.55 Million/uL Hgb 12.5 Gram/dL Hct 37.3 % MCV 82.0 fL MCH 27.5 pg MCHC 33.5 Gram/dL Platelet Count 182 K/uL MPV 9.2 fL LOW RDW 13.2 % Neut % 59.4 % Neut # 4.51 K/uL Lymph % 27.7 % Lymph # 2.10 K/uL [place] % 7.9 % [place] # 0.60 K/uL Eos % 4.2 % Eos # 0.32 K/uL Baso % 0.4 % Baso # 0.03 K/uL Slide Review No IG# 0 x10(3)/uL IG% 0 % PT 9.6 Second(s) INR 0.9 PTT 25.4 Second(s) Wet Prep See Result LENNY Prep See Result Specimen Type swab . Radiology results: Radiology Results (Last 48 hours) [id number] -- 09/24/2019 05:36 US Transvaginal Non Ob (09/24/2019 08:15) Result: PELVIC ULTRASOUND.HISTORY: Abnormal uterine bleeding for 3 days. Crampy pelvic pain. [id number]/16/2018.PROCEDURE: Transvaginal images of the pelvis were obtained.COMPARISON: 09/01/2018.FINDINGS: The uterus is normal in size. However, the endometrium isthickened up to 18 mm. The endometrium had a normal appearance on theprior examination one year ago.. Small hypoechoic regions within theendometrium might represent fibroids although convincing evidence offibroids is seen. An incidental nabothian cyst is seen in the cervix.The ovaries are unremarkable with flow identified bilaterally on Dopplerimaging. There is no free fluid.IMPRESSION: New endometrial thickening of uncertain etiology orsignificance. Follow-up imaging in different menstrual stage might behelpful for reevaluation.. . Notes: Labs and imaging currently pending. Case signed off to Dr. Meyer to follow labs and US results. Impression and Plan Diagnosis Vaginal bleeding - Discharge, Medical Dysfunctional uterine bleeding - Discharge, Emergency medicine, Medical Tachycardia - Discharge, Emergency medicine, Medical Plan Condition: Stable. Disposition: Patient care transitioned to: Time: 09/24/2019 07:00:00, ROSENDA MEYER MD. Patient was given the following educational materials: Abnormal Uterine Bleeding. Limitations: Limited activity. Follow up with: SOFÍA VAUGHN Within 2 to 3 days Return or go to the nearest ER for dizziness, difficulty breathing, worsening bleeding, fever and or persistent vomiting. . Counseled: Patient, Regarding diagnosis, Regarding diagnostic results, Regarding treatment plan, Regarding prescription, Patient indicated understanding of instructions. Addendum [id number]: I have assumed care from the patient from Dr. Hope and we are awaiting laboratory studies to be completed as well as a transvaginal ultrasound. He informs me that the patient is a 23-year-old female who is a 2 para 1 AB 1 approximately 4 months ago. She comes in today with vaginal bleeding since this past Monday but has really intensified yesterday. She states that she is passing a large amount of clots and having to go through 1 pad per hour. She was just recently started on fertility medications by Chandan Zamora. She has a past medical history of polycystic ovarian syndrome and is on metformin. She reportedly had a subjective fever yesterday. Rosenda Meyer MD documented in this encounter Plan of Treatment Not on file documented as of this encounter Visit Diagnoses Not on filedocumented in this encounter
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
--- OUTSIDE RECORDS SUMMARY | 2025-04-24 17:28 | XMS_ITS | Encounter Summary ---
Author Organization [employer] Address [address] [place] [address] Care Team Providers Care Joint Cutter Name Role Phone Unavailable Primary Care Provider Unavailabl e Encounter Details Date Type Department Care Team (Late st Contact Info) Description 11/25/2020 Transcribed Document [facility] [place] Family Medicine [address] [place] [address] ProviderLeón MD [address] [place] [id number] Social History Tobacco Use Types Packs/Day Years Used Date Smoking Tobacco: Never Assessed Comments Unknown Sex and Gender Information Value Date Recorded Sex Assigned at Not on file Legal Sex Female 6:09 PM CDT Gender Identity Not on file Sexual Orientation Not on file documented as of this encounter Miscellaneous Notes * Cerner Conversion Note - León ProviderMD - 11/25/2020 4:12 PM DYE WINCH OPERATOR [facility] [place] [address] PAM FENG :1995 Visit Time:11/25/2020 Your Visit Summary Your Care Team Primary Provider: MARTA FLORES PA-C Secondary Provider: Your Diagnosis Headache Headache Medical Information You may obtain a copy [...] do next Follow-Up Appointments Follow Up with UNKNOWN PHY When Within 2 to 3 days Comments Return to ED if symptoms worsen. Allergies amoxicillin (C/O - vomiting) Immunizations This Visit No Immunizations Found Medications What How Much When Instructions Next Dose letrozole Every Day metFORMIN sertraline (Zoloft) Every Day The home medications listed are only as [...] This Visit (last charted value for your 11/25/2020 visit) Hematology 11/25/2020 11:07 AM WBC: 9.1 K/uL -- Normal range between ( 4.5 and 10.5 ) RBC: 5.33 Million/uL -- Normal range between ( 3.93 and 5.22 ) Hct: 43.8 % -- Normal range between ( 34.1 and 44.9 ) Hgb: 13.7 g/dL -- Normal range between ( 11.2 and 15.7 ) Platelet Count: 222 K/uL -- Normal range between ( 163 and 369 ) MCH: 25.7 pg -- Normal range between ( 25.6 and 32.2 ) MCHC: 31.3 Gram/dL -- Normal range between ( 32.2 and 36.5 ) MCV: 82.2 fL -- Normal range between ( 79.0 and 94.8 ) Slide Review: No Eos %: 1.3 % -- Normal range between ( 0.0 and 7.0 ) Carbon #: 0.55 K/uL -- Normal range between ( 0.16 and 1.00 ) Eos #: 0.12 x10(3)/uL -- Normal range between ( 0.00 and 0.80 ) Carbon %: 6.1 % -- Normal range between ( 3.0 and 9.0 ) Baso %: 0.3 % -- Normal range between ( 0.0 and 1.5 ) Baso #: 0.03 x10(3)/uL -- Normal range between ( 0.00 and 0.20 ) RDW: 13.8 % -- Normal range between ( 11.7 and 14.9 ) Neut %: 65.9 % -- Normal range between ( 34.0 and 71.0 ) Neut #: 5.98 K/uL -- Normal range between ( 1.56 and 6.13 ) Lymph %: 26.1 % -- Normal range between ( 19.3 and 53.1 ) Lymph #: 2.37 x10(3)/uL -- Normal range between ( 1.00 and 3.90 ) MPV: 9.0 fL -- Normal range between ( 9.4 and 12.4 ) IG#: 0.03 x10(3)/uL -- Normal range between ( 0.00 and 0.05 ) IG%: 0.30 % -- Normal range between ( 0.00 and 0.60 ) General Chemistry 11/25/2020 11:07 AM Creatinine Level: 0.80 mg/dL -- Normal range between ( 0.55 and 1.02 ) Sodium Level: 137 mmol/L -- Normal range between ( 136 and 146 ) Potassium Level: 3.9 mmol/L -- Normal range between ( 3.5 and 5.1 ) Chloride Level: 106 mmol/L -- Normal range between ( 102 and 112 ) Carbon Dioxide Level: 22 mmol/L -- Normal range between ( 21 and 32 ) Anion Gap: 13 -- Normal range between ( 9 and 20 ) Bilirubin Total: 0.4 mg/dL -- Normal range between ( 0.2 and 1.2 ) A/G Ratio: 1.0 -- Normal range between ( 1.1 and 2.5 ) ALT: 57 Units/Liter -- Normal range between ( 13 and 56 ) AST: 33 Units/Liter -- Normal range between ( 5 and 37 ) Globulin: 4.0 Gram/dL -- Normal range between ( 1.5 and 4.5 ) Alk Phos: 103 Units/Liter -- Normal range between ( 27 and 136 ) Bun/Creatinine: 16.2 -- Normal range between ( 8.0 and 20.0 ) Calcium Level: 8.9 mg/dL -- Normal range between ( 8.4 and 10.1 ) eGFR : >60 mL/min/1.73m2 eGFR NonAfrican: >60 mL/min/1.73m2 Glucose Level: 102 mg/dL -- Normal range between ( 74 and 106 ) Blood Urea Nitrogen: 13 mg/dL -- Normal range between ( 7 and 22 ) Protein Total: 7.8 Gram/dL -- Normal range between ( 6.4 and 8.2 ) Albumin Level: 3.8 Gram/dL -- Normal range between ( 3.4 and 5.0 ) Computed Tomography 11/25/2020 12:[address] Head WO: CT Head WO Education Materials Tension Headache, Adult A tension headache is a feeling of pain, pressure, or aching in the head that is often felt over the front and sides of the head. The pain can be dull, or it can feel tight (constricting). There are two types of tension headache: ??? Episodic tension headache. This is when the headaches happen fewer than 15 days a month. ??? Chronic tension headache. This is when the headaches happen more than 15 days a month during a 3-month period. A tension headache can last from 30 minutes to several days. It is the most common kind of headache. Tension headaches are not normally associated with nausea or vomiting, and they do not get worse with physical activity. What are the causes? The exact cause of this condition is not known. Tension headaches are often triggered by stress, anxiety, or depression. Other triggers include: ??? Alcohol. ??? Too much caffeine or caffeine withdrawal. ??? Respiratory infections, such as colds, flu, or sinus infections. ??? Dental problems or teeth clenching. ??? Tiredness (fatigue). ??? Holding your head and neck in the same position for a long period of time, such as while using a computer. ??? Smoking. ??? Arthritis of the neck. What are the signs or symptoms? Symptoms of this condition include: ??? A feeling of pressure or tightness around the head. ??? Dull, aching head pain. ??? Pain over the front and sides of the head. ??? Tenderness in the muscles of the head, neck, and shoulders. How is this diagnosed? This condition may be diagnosed based on your symptoms, your medical history, and a physical exam. If your symptoms are severe or unusual, you may have imaging tests, such as a CT scan or an MRI of your head. Your vision may also be checked. How is this treated? This condition may be treated with lifestyle changes and with medicines that help relieve symptoms. Follow these instructions at home: Managing pain ??? Take [id number] and prescription medicines only as told by your health care provider. ??? When you have a headache, lie down in a dark, quiet room. ??? If directed, apply ice to the head and neck: ? Put ice in a plastic bag. ? Place a towel between your skin and the bag. ? Leave the ice on for 20 minutes, 2???3 times a day. ??? If directed, apply heat to the back of your neck as often as told by your health care provider. Use the heat source that your health care provider recommends, such as a moist heat pack or a heating pad. ? Place a towel between your skin and the heat source. ? Leave the heat on for 20???30 minutes. ? Remove the heat if your skin turns bright red. This is especially important if you are unable to feel pain, heat, or cold. You may have a greater risk of getting burned. Eating and drinking ??? Eat meals on a regular schedule. ??? Limit alcohol intake to no more than 1 drink a day for non women and 2 drinks a day for men. One drink equals 12 oz of beer, 5 oz of wine, or 1?? oz of hard liquor. ??? Drink enough fluid to keep your urine pale yellow. ??? Decrease your caffeine intake, or stop using caffeine. Lifestyle ??? Get 7???9 hours of sleep each night, or get the amount of sleep recommended by your health care provider. ??? At bedtime, remove all electronic devices from your room. Electronic devices include computers, phones, and tablets. ??? Find ways to manage your stress. Some things that can help relieve stress include: ? Exercise. ? Deep breathing exercises. ? Yoga. ? Listening to music. ? Positive mental imagery. ??? Try to sit up straight and avoid tensing your muscles. ??? Do not use any products that contain nicotine or tobacco, such as cigarettes and e-cigarettes. If you need help quitting, ask your health care provider. General instructions ??? Keep all follow-up visits as told by your health care provider. This is important. ??? Avoid any headache triggers. Keep a headache journal to help find out what may trigger your headaches. For example, write down: ? What you eat and drink. ? How much sleep you get. ? Any change to your diet or medicines. Contact a health care provider if: ??? Your headache does not get better. ??? Your headache comes back. ??? You are sensitive to sounds, light, or smells because of a headache. ??? You have nausea or you vomit. ??? Your stomach hurts. Get help right away if: ??? You suddenly develop a very severe headache along with any of the following: ? A stiff neck. ? Nausea and vomiting. ? Confusion. ? Weakness. ? Double vision or loss of vision. ? Shortness of breath. ? Rash. ? Unusual sleepiness. ? Fever. ? Trouble speaking. ? Pain in your eyes or ears. ? Trouble walking or balancing. ? Feeling faint or passing out. Summary ??? A tension headache is a feeling of pain, pressure, or aching in the head that is often felt over the front and sides of the head. ??? A tension headache can last from 30 minutes to several days. It is the most common kind of headache. ??? This condition may be diagnosed based on your symptoms, your medical history, and a physical exam. ??? This condition may be treated with lifestyle changes and with medicines that help relieve symptoms. This information is not intended to replace advice given to you by your health care provider. Make sure you discuss any questions you have with your health care provider. Document Released: 10/23/2006 Document Revised: 10/05/2018 Document Reviewed: 02/02/2018 Elsevier Patient Education ?? 2020 [employer]. Emergency Awareness and Preventative Care STROKE is [...] Assistance with quitting is available by contacting 7-918-BRNEBATTERIES & BANDSNOW. This is a free resource providing counseling, [...] was given the opportunity to ask questions. Patient/Automotive Worker Name: Patient/Automotive Worker Signature: Relationship to Patient: Clinician/Hospital Automotive Worker Signature: Please Provide a Telephone Number Where You Can Be Reached: Is it Permissible To Leave a Message? Date: Electronically signed by Jimena [facility] Conversion Smocking Machine Operator Kimberly at 02/19/2023 9:48 AM CDT documented in this encounter Plan of Treatment Not on file documented as of this encounter Visit Diagnoses Not on filedocumented in this encounter
--- OUTSIDE RECORDS SUMMARY | 2025-04-24 17:28 | XMS_ITS | Encounter Summary ---
Author Organization [employer] Address [address] [place] [address] Care Team Providers Care Manometer Technician Name Role Phone Unavailable Primary Care Provider Unavailabl e Encounter Details Date Type Department Care Team (Late st Contact Info) Description 09/24/2019 Transcribed Document [facility] [place] Family Medicine [address] [place] [address] ProviderLeón MD [facility] [place], [place] [id number] Social History Tobacco Use Types Packs/Day Years Used Date Smoking Tobacco: Never Assessed Comments Unknown Sex and Gender Information Value Date Recorded Sex Assigned at Not on file Legal Sex Female 6:09 PM CDT Gender Identity Not on file Sexual Orientation Not on file documented as of this encounter Miscellaneous Notes * Cerner Conversion Note - Historical ProviderMD - 09/24/2019 7:56 AM INDUSTRIAL RELATIONS DIRECTOR Vital Signs ED Entered On: 09/24/2019 8:38 EST Performed On: 09/24/2019 8:33 EST by DEE DREW Vital Signs ED Temperature Mode : Fahrenheit Systolic Blood Pressure, Supine : 130 mmHg Diastolic Blood Pressure, Supine : 60 mmHg Pulse Supine : 118 bpm Systolic B/P, Sitting : 128 mmHg Diastolic B/P, Sitting : 68 mmHg Pulse Sitting : 129 bpm Systolic Blood Pressure, Standing : 134 mmHg Diastolic Blood Pressure, Standing : 73 mmHg Pulse Standing : 126 bpm DEE DREW - 09/24/2019 8:33 EST documented in this encounter Plan of Treatment Not on file documented as of this encounter Visit Diagnoses Not on filedocumented in this encounter
--- OUTSIDE RECORDS SUMMARY | 2025-04-24 17:28 | XMS_ITS | Encounter Summary ---
Author Organization [employer] Address [address] [place] [address] Care Team Providers Care Jewelry Internship Name Role Phone Unavailable Primary Care Provider Unavailabl e Encounter Details Date Type Department Care Team (Late st Contact Info) Description 11/25/2020 Transcribed Document [facility] [place] [address] [place] [address] ProviderLeón MD [address] [place], [place] [id number] Social History Tobacco Use Types Packs/Day Years Used Date Smoking Tobacco: Never Assessed Comments Unknown Sex and Gender Information Value Date Recorded Sex Assigned at Not on file Legal Sex Female 6:09 PM CDT Gender Identity Not on file Sexual Orientation Not on file documented as of this encounter Miscellaneous Notes * Cerner Conversion Note - Historical ProviderMD - 11/25/2020 10:52 AM EMERGENCY ROOM ORDERLY [place] Suicide Severity Rating Scale (C-SSRS) Entered On: 11/25/2020 14:40 EST Performed On: 11/25/2020 14:40 EST by LALI SEAY RN [place] Suicide Severity Rating Scale (C-SSRS) CSSRS Past Month Wish to be : No CSSRS Past Month Suicidal Thoughts : No CSSRS Lifetime Suicide Behavior : No Suicide Severity Rating Score : 0 Suicide Severity Rating : No Additional Care Required at this time LALI SEAY RN - 11/25/2020 14:40 EST documented in this encounter Plan of Treatment Not on file documented as of this encounter Visit Diagnoses Not on filedocumented in this encounter
--- OUTSIDE RECORDS SUMMARY | 2025-04-24 17:28 | XMS_ITS | Encounter Summary ---
Author Organization [employer] Address [address] [place] [address] Care Team Providers Care Segment Assembler Name Role Phone Unavailable Primary Care Provider Unavailabl e Encounter Details Date Type Department Care Team (Late st Contact Info) Description 09/26/2019 Transcribed Document [facility] [place] [address] [place] [address] ProviderLeón MD [facility] [place] [address] Social History Tobacco Use Types Packs/Day Years Used Date Smoking Tobacco: Never Assessed Comments Unknown Sex and Gender Information Value Date Recorded Sex Assigned at Not on file Legal Sex Female 6:09 PM CDT Gender Identity Not on file Sexual Orientation Not on file documented as of this encounter Miscellaneous Notes * Cerner Conversion Note - Historical ProviderMD - 09/26/2019 11:00 AM ROOF ASSEMBLER Urine Culture Collected: 09/24/2019 Complete Body site: Specimen Type: U CleanCatch 09/26/2019 09:56 09/26/2019 11:00 (KINGSLEY MEJIA PA-C) Reviewed by Provider, No further action required 3 or more organisms suggesting contamination documented in this encounter Plan of Treatment Not on file documented as of this encounter Visit Diagnoses Not on filedocumented in this encounter
--- OUTSIDE RECORDS SUMMARY | 2025-04-24 17:28 | XMS_ITS | Encounter Summary ---
Author Organization [employer] Address [address] [place] [address] Care Team Providers Care Business Banking Representative Name Role Phone Unavailable Primary Care Provider Unavailabl e Encounter Details Date Type Department Care Team (Late st Contact Info) Description 11/25/2020 Transcribed Document [facility] [place] [address] [place] [address] ProviderLeón MD [facility] [place] [address] Social History Tobacco Use Types Packs/Day Years Used Date Smoking Tobacco: Never Assessed Comments Unknown Sex and Gender Information Value Date Recorded Sex Assigned at Not on file Legal Sex Female 6:09 PM CDT Gender Identity Not on file Sexual Orientation Not on file documented as of this encounter Miscellaneous Notes * Cerner Conversion Note - Historical ProviderMD - 11/25/2020 11:11 AM TOBACCO CLOTH RECLAIMER ED POC - URINE HCG Entered On: 11/25/2020 14:40 EST Performed On: 11/25/2020 14:20 EST by LALI SEAY RN Point of Care Urine HCG HCG Result : Negative Internal Control Line Present : Yes Internal Control Background Clear : Yes LALI SEAY RN - 11/25/2020 14:39 EST Electronically signed by Jimena [facility] Conversion General Office Associate Cerner at 02/19/2023 9:37 AM CDT documented in this encounter Plan of Treatment Not on file documented as of this encounter Visit Diagnoses Not on filedocumented in this encounter
--- OUTSIDE RECORDS SUMMARY | 2025-04-24 17:28 | XMS_ITS | Encounter Summary ---
Author Organization [employer] Address [address] [place] [address] Care Team Providers Care Leasing Agent Name Role Phone Unavailable Primary Care Provider Unavailabl e Encounter Details Date Type Department Care Team (Late st Contact Info) Description 11/25/2020 Transcribed Document [facility] [place] Family Medicine [address] [place] [address] ProviderLeón MD [address] [place] [id number] Social History Tobacco Use Types Packs/Day Years Used Date Smoking Tobacco: Never Assessed Comments Unknown Sex and Gender Information Value Date Recorded Sex Assigned at Not on file Legal Sex Female 6:09 PM CDT Gender Identity Not on file Sexual Orientation Not on file documented as of this encounter Miscellaneous Notes * Cerner Conversion Note - León ProviderMD - 11/25/2020 4:27 PM LAND MANAGEMENT FORESTER ED Discharge Entered On: 11/25/2020 16:27 EST Performed On: 11/25/2020 16:27 EST by AMBER HANSEN Credit Operations Specialist Process Patient Disposition : Discharge Personal Belongings With Patient : Yes Patient Education Completed : Yes Teaching Evaluation : Verbalizes understanding Link to Valuables and Belongings form : No IV Discontinued : Yes Nursing Documentation Completed : Yes AMBER HANSEN Rn - 11/25/2020 16:27 EST ED Discharge Discharge To : Home with ambulatory/outpatient follow-up Name of Receiving Facility/Provider : PCP Mode Of Departure : Ambulatory Accompanied By : Unaccompanied Discharge Instructions Reviewed With, Opportunity For Questions Given : Patient Prescriptions Given to Patient : No Medications Given to Patient : No AMBER HANSEN Rn - 11/25/2020 16:27 EST Electronically signed by Jimena [facility] Conversion Policy Change Clerks Supervisor Cerner at 02/19/2023 9:39 AM CDT documented in this encounter Plan of Treatment Not on file documented as of this encounter Visit Diagnoses Not on filedocumented in this encounter
--- OUTSIDE RECORDS SUMMARY | 2025-04-24 17:28 | XMS_ITS | Continuity of Care Document ---
Author Organization [place] [facility] Address [address] [facility] [address] [place] [address] Care Team Providers Care Sommelier Name Role Phone SOFÍA VAUGHN Primary Care Provider Assessment No assessment recorded. Plan of Treatment Reminders Order Date Submit Date Provider Last Modified By Organization Details Last Modified Time Details Appointments TELEPHONI C VISIT 15 2024 03:40P Jenise Estrada, DNP, HOSPICE ENTRANCE ATTENDANT, QC MANAGER-C Not available Not available Not available Lab None recorded. Referral None recorded. Procedures None recorded. Surgeries None recorded. Imaging None recorded. Medication Orders Zepbound 7.5 mg/0.5 mL subcutane ous pen injector 2024 025 [facility], [address], [place], [address], 03/06/2025 14:11:55 Patient TargetsNo targets recorded. Patient InstructionsNo instructions recorded. Reason for Referral None Reported. Results Created Date Observation Date Name Description Value Unit Range Abnormal Flag Note LastModifiedBy Organization Detail LastModifiedTime 03/25/20 25 03/25/2025 XR, knee No observ ation record ed. [address], [place], [address], 03/27/2025 18:08:14 Result Notes None recorded. Problems Name Problem SNOMED Code Status Onset Date Resolution Date Notes Provider Name and Address Organization Details Recorded Time Polycystic ovary syndrome 215135087 Active 2021 YONATHAN Anderson [address] [facility], [place], [address] , [place] & [place] 2 09:00:55 Vitamin D deficiency 85494846 Active [address], LD [address] [facility], [place], [address] , [place] 2 16:39:55 Laparoscop ic sleeve gastrectom y Active [address], LD [address] [facility], [place], [address] , [place] 2 16:39:55 Hypothyroi dism 61747891 Active [address], LD [address] [facility], [place], [address] , [place] 2 16:39:56 Obesity 369828236 Active MUNIR GARCIA RD, LD [address] [facility], [place], [address] , [place] [facility] & [place] 2 16:39:55 Acquired hypothyroi dism 228048602 Active MUNIR GARCIA RD, LD [address] [facility], [place], [address] , [place] [facility] & [place] 2 16:39:55 Indigestio n 590961731 Active MUNIR GARCIA RD, LD [address] [facility], [place], [address] , [place] 2 16:39:55 Disorder of gastrointe stinal tract 192671364 Active MUNIR GARCIA RD, LD [address] , [place], [address] , [place] 2 16:39:55 Shoulder strain 256333937 Active MUNIR GARCIA RD, LD [address], [place], [address] , [place] & [place] 2 16:39:55 Prolactin level above reference range 842515253 Active MUNIR MAXWELL RADHA RD, LD [address], [place], [address] , [place] 2 16:39:55 Plain X-ray result abnormal 930300803 Active MUNIR MAXWELL RADHA RD, LD [address] [facility], [place], [address] , [place] 2 16:39:55 Polycystic ovaries Active MUNIR POTTERMICHAEL GARCIA RD, LD [address] [facility], [place], [address] , [place] 2 16:39:55 Missed period 77341060 Active MUNIR POTTERMICHAEL GARCIA RD, LD [address] [facility], [place], [address] , [place] 2 16:39:55 Mild depression 902219978 Active MUNIR POTTERMICHAEL GARCIA RD, LD [address] [facility], [place], [address] , [place] 2 16:39:55 Stress 33856616 Active MUNIR POTTERMICHAEL GARCIA RD, LD [address] [facility], [place], [address] , [place] 2 16:39:55 Mixed hyperlipid emia 060583648 Active MUNIR POTTERMICHAEL GARCIA RD, LD [address] [facility], [place], [address] , [place] 2 16:39:55 Liver enzymes level above reference range 993757777 Active MUNIR ALISSA GARCIA RD, LD [address] [facility], [place], [address] , [place] 2 16:39:55 Recurrent major depressive episodes, moderate 313243390 Active MUNIR GARCIA RD, LD [address] [facility], [place], [address] , [place] 2 16:39:55 Mood disorder 71060841 Active MUNIR MERCERLOLY GARCIA RD, LD [address] [facility], [place], [address] , [place] 2 16:39:55 Essential hypertensi on 81393955 Active MUNIR ALISSA GARCIA RD, LD [address] [facility], [place], [address] , [place] 2 16:39:55 Steatotic liver disease 080582247 Active MUNIR ALISSA GARCIA RD, LD [address] [facility], [place], [address] , [place] 2 16:39:55 Dysthymia 43880200 Active MUNIR POTTERMICHAEL GARCIA RD, LD [address] [facility], [place], [address] , [place] 2 16:39:55 Thyroid nodule 708533114 Active MUNIR POTTERMICHAEL GARCIA RD, LD [address] [facility], [place], [address] , [place] [facility] & [place] 2 16:39:55 Morbid obesity 008203686 Active MUNIR GARCIA RD, LD [address] [facility], [place], [address] , [place] 2 16:39:55 Goiter 7049409 Active MUNIR ALISSAMICHAEL GARCIA RD, LD [address] [facility], [place], [address] , [place] [facility] & [place] 2 16:39:56 Elevated level of transamina se and lactic acid dehydrogen ase 472933837 Active MUNIR GARCIA RD, LD [address] [facility], [place], [address] , [place] 2 16:39:56 Nausea 610370980 Active MUNIR GARCIA RD, LD [address] [facility], [place], [address] , [place] 2 16:39:56 Body mass index 30+ - obesity 754117575 Active MUNIR GARCIA RD, LD [address] [facility], [place], [address] , [place] 2 16:39:56 Irregular intermenst rual bleeding 76696957 Active MUNIR GARCIA RD, LD [address] [facility], [place], [address] , [place] 2 16:39:56 Anxiety 34358661 Active MUNIR GARCIA RD, LD [address] [facility], [place], [address] , [place] 2 16:39:56 Nodule of lung 791594755 Active MUNIR GARCIA RD, LD [address] [facility], [place], [address] , [place] 2 16:39:56 Carpal tunnel syndrome of right wrist 3963008125801 [address], LD [address] [facility], [place], [address] , [place] 2 16:39:56 Abdominal pain 97421138 Active MUNIR GARCIA RD, LD [address] [facility], [place], [address] , [place] 2 16:39:56 Pain in throat 654556098 Active 2021 TREMAYNE carcamo, [place] 2 17:14:51 Intentiona l weight loss 549387515 Active 2021 Angelito Estrada, MATTHEW, HOSPICE ENTRANCE ATTENDANT, QC MANAGER-C [address], [place], [address] , [place] 2 11:51:56 Heartburn 77610079 Active 2022 Angelito Estrada, MATTHEW, HOSPICE ENTRANCE ATTENDANT, QC MANAGER-C [address], [place], [address] , [place] 3 13:15:59 Fatigue 73378071 Active 2023 Angelito Estrada, MATTHEW, HOSPICE ENTRANCE ATTENDANT, QC MANAGER-C [address], [place], [address] , [place] 4 10:28:55 Problem Notes None recorded. 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 completed Isabel [place]ord [place] 5 11:29:41 10/06 Date of Last Pap Smear completed Ela Castillo [place] 4 11:58:37 09/23 laparoscopic sleeve gastrectomy completed Ana Moya [place] 2 13:07:03 07/15 esophagogastroduodenoscopy completed [place]arly [place]ales [place] 5 11:42:14 11/06 Carpal Tunnel Surgery completed Paige Ochoa [place] 4 15:50:19 06/16 fine needle biopsy of thyroid completed Isabel [place]ord [place] 5 11:39:48 02/10 esophagogastroduodenoscopy completed Karly [place]ales [place] 5 11:33:29 11/06 Knee Surgery completed Isabel [place]amer [place] - [place] - [place] & [place] 5 11:37:12 11/06 Ovarian Cystectomy completed Isabel Rothamer [place] - [place] - [place] & [place] 5 11:37:19 11/06 cholecystectomy completed Paige LEAV[place] - [place] - [place] & [place] 4 15:49:18 11/06 extraction of wisdom tooth completed Karly da Chucklindsay [place] - [place] - [place] & [place] 5 11:37:41 11/06 tonsillectomy completed Paige LEAVITT - [facility] & [place] 4 15:49:26 11/06 ENT Surgery completed Isabel Woodsamer [place] - [facility] - [place] & [place] 5 11:29:41 Imaging Results None recorded. Procedure Notes None recorded. Medical Equipment None Reported. Allergies Allergen ID Allergen Name Allergen Category Reaction Reaction Severity Criticality Documentation Date Start Date Code Code System Note Provider Name and Address Organization Details Recorded Time 54057 amoxicill in medicatio n nausea rash vomiting Not available Not available Not available low 07/21/2022 723 RxNorm Hever ates cepha lospo rins Isabel Woodsamer null, [place] [facility] & [place] 5 11:58:46 81958 phentermi ne medicatio n tachycard ia moderate Not available 07/21/[address], LD [address], [place], [address], [place] [facility] & [place] 2 16:40:31 533717 Non-stero idal anti-infl ammatory agent (product) medicatio n other Not available low 08/29/2024 81419 005 SNOMED Cant take with recen t gastr ic sleev e surge ry Isabel Woodsamer null, [place] [facility] & [place] 5 11:58:59 98831 Derm-Appl y medicatio n Not available Not available low 08/31/2022 72209 UNK derma cortez Isabel carcamo, [place] [facility] & [place] 5 11:59:05 43758 hydrocodo ne Not available rash severe high 08/31/2022 5489 RxNorm Isabel carcamo, [place] [facility] & [place] 5 11:58:49 Medications Name Sig Start Date [...] Updated DateTime 03/06/2025 165.1 cm 25.6 kg/m2 54564.22 jakob Medina [facility] & [place] 03/06/2025 13:55:52 Social History Question Answer Notes LastModified by Organizat ion Details LastModified Time Tobacco Smoking Status Never Smoker Ana West null, [facility] & [place] 07/21/2022 13:33:48 Do You Have An Advance Directive? No [email or web address] Information not available 09/27/2022 Are You Blind Or Do You Have Difficulty Seeing? Yes Information not available 09/27/2022 Are You Deaf Or Do You Have Serious Difficulty Hearing? No Information not available 03/28/2023 What Was The Date Of Your Most Recent Tobacco Screening? 01/09/2025 Information not available 01/21/2025 Are You Passively Exposed To Smoke? No [email or web address] Information not available 09/27/2022 How Much Tobacco Do You Smoke? No Information not available 01/21/2025 How Many Years Have You Smoked Tobacco? 0 Information not available 01/21/2025 Sex: Female Functional Status Question Answer Note LastModified by Organizat ion Details LastModified Time Do you use any illicit or recreational drugs? No [email or web address] Information not available 07/21/2022 Do you or have you ever used any other forms of tobacco or nicotine? No [email or web address] Information not available 03/28/2023 What is your level of alcohol consumption? None Information not available 07/21/2022 Do you or have you ever used smokeless tobacco? Never used smokeless tobacco Information not available 01/21/2025 What is your exercise level? Moderate [email or web address] Information not available 09/27/2022 Mental Status Question Answer Note LastModified by Organization D etails LastModified Time Do you feel stressed (tense, restless, nervous, or anxious, or unable to sleep at night)? [id number] Information not available 09/27/2022 Family History Relationship Description Onset Age of this Age Resolved Age Notes LastModified by Organization Details LastModified Time Mother Diabetes mellitus Not available 02/06 14:55:01 Mother Essential hypertension [email or web address] Not available 14:55:01 Mother Obesity [email or web address] Not available 1 08:41:00 Mother Hyperlipidem ia [email or web address] Not available 02/06 14:55:01 Mother Disease of liver pt. added direct ly (01/09) [email or web address] Not available 01/09/2025 10:35:03 Mother Cirrhosis - non-alcoholi c [email or web address] Not available 02/06 14:55:01 Mother Anemia [email or web address] Not available 01/21/2025 11:57:09 Maternal Grandfather Diabetes mellitus [email or web address] Not available 02/06 14:55:01 Maternal Grandfather Essential hypertension [email or web address] Not available 14:55:01 Maternal Grandfather Coronary arterioscler osis [email or web address] Not available 02/06 14:55:01 Maternal Grandfather Obesity [email or web address] Not available 2023 08:41:17 Maternal Grandfather Hyperlipidem ia [email or web address] Not available 02/06 14:55:01 Maternal Grandfather Myocardial infarction [email or web address] Not available 01/21 11:56:03 Maternal Grandfather Sleep apnea [email or web address] Not available 02/06/2025 14:55:01 Father Essential hypertension [email or web address] Not available 14:55:01 Father Coronary arterioscler osis [email or web address] Not available 02/06 14:55:01 Father Obesity [email or web address] Not available 1 08:41:09 Father Hyperlipidem ia [email or web address] Not available 02/06 14:55:01 Father Heart disease [email or web address] Not available 2024 11:36:37 Father Diabetes mellitus [email or web address] Not available 02/06 14:55:01 Father Myocardial infarction [email or web address] Not available 01/21 11:55:23 Father Kidney disease [email or web address] Not available 2024 11:55:46 Maternal Grandmother Essential hypertension Not available 14:55:01 Maternal Grandmother Obesity [email or web address] Not available 2023 08:41:13 Maternal Grandmother Malignant neoplastic disease [email or web address] Not available 02/06 14:55:01 Paternal Grandmother Obesity [...] Ela [place]illo null, [place] 09/27/2023 08:17:50 COVID-19, mRNA, LNP-S, PF, 100 mcg/0.5mL dose or 50 mcg/0.25mL dose 1 completed Ela Castillo null, [place] 09/27/2023 08:17:41 COVID-19, mRNA, LNP-S, PF, 100 mcg/0.5mL dose or 50 mcg/0.25mL dose 1 completed Ela Castillo null, [place] 09/27/2023 08:17:41 MMR 5 completed Ela Castillo [place] 04/03/2024 10:18:10 MMR 5 completed Ela carcamo, [place] 04/03/2024 10:18:10 RSV, bivalent, protein subunit RSVpreF, diluent reconstituted, 0.5 mL, PF 4 completed Ela Castillo null, [place] - [facility] - [place] & [place] 04/03/2024 10:18:10 Tdap 3 completed Ela Castillo null, [place] 04/03/2024 10:18:10 varicella 5 completed Ela Castillo null, [place] - [facility] - [place] & [place] 04/03/2024 10:18:10 Hep B, adult 5 completed Ela Castillo null, [place] [facility] & [place] 04/03/2024 10:18:10 Influenza, split virus, quadrivalent, PF 3 completed Ela Castillo null, [place] [facility] 04/03/2024 10:18:10 Rho(D) - Unspecified formulation 7 completed Isabel Rothamer null, [place] - [facility] - [place] & [place] 01/21/2025 11:54:59 Rho(D) - Unspecified formulation 3 completed Isabel Rothamer null, [place] [facility] 01/21/2025 11:59:29 Past Encounters Encounter ID Performer Location Encounter Start Date Encounter Closed Date Diagnosis/Indication Diagnosis SNOMED-CT Code Diagnosis ICD10 Code Diagnosis Note [id number] Angelito Estrada, DNP, HOSPICE ENTRANCE ATTENDANT, QC MANAGER-C [facility] [address] [facility] [address] [place] [address] 02/06/2025 14:54:48 02/06/2025 15:04:46 History of bariatric surgical procedure 696443537 Z98.84 Advised qid intake 50% protein 5728-8142 calories/d y less than 100 carbs/dy Intentiona l weight loss 441567308 R63.8 History of gastrectomy 832822690 Z90.3 Advised qid intake 50% protein 5823-4999 calories/d y less than 100 carbs/dy [facility] risk of nutritional deficit 695490390 Z91.89 Acquired hypothyroidism 593934584 E03.9 Essential hypertension 03519343 I10 Mixed hyperlipidemia 267 086737 E78.2 Obesity 734378386 E66.9 we will follow up in 1 [...] smartphone . Provider (Angelito Estrada DNP, DUONG, QC MANAGER-C) location was [facility] [address] [place] [address], [address] in [place]. Patient location: her workplace Patient gave [...] of hand washing and social distancing . [id number] Angelito Estrada DNP, DUONG, QC MANAGER-C [facility] [address] [place] [address] [address] [place] [address] 03/06/2025 13:51:19 03/06/2025 14:15:10 History of bariatric surgical procedure 653772085 Z98.84 Advised qid intake 50% protein 7179-6374 calories/d y less than 100 carbs/dyTo days visit was performed with AUDIO ONLY per patient request. Patient could not be seen utilizing audio/vide o or in person due to patient being in [place], [place], thus this visit was performed at patients request. Reason visit was not performed by video is due to patient not having access to smartphone . Provider (Angelito Estrada DNP, APRN, QC MANAGER-C) location was [facility] [address] [place] [address], [address] in [place]. Patient location: work. Patient gave informed [...] social distancing . Intentiona l weight loss 846918601 R63.8 History of gastrectomy 938322396 Z90.3 Advised qid intake 50% protein 2811-0506 calories/d y less than 100 carbs/dy Follow-up with Repeat SILVIA in 3mth suggested .. At [facility] risk of nutritional deficit 067051062 Z91.89 Acquired hypothyroidism 599273278 E03.9 Obesity 531164726 E66.9 we will follow up in 1 [...] Wilson Member ID Guarantor Name 03/06/2025 1 [employer] [id number] Jeremiah Knowles Deal [id number] Pam Jaime Deal Notes Date Note [...] this being a telehealth appt Angelito Estrada, MATTHEW, HOSPICE ENTRANCE ATTENDANT, QC MANAGER-C [address] [facility], [place], [address], [facility] [place] & [place] 03/06/2025 14:12:43 OBGyn Episode No OBEpisode recorded.
--- OUTSIDE RECORDS SUMMARY | 2025-04-24 17:28 | XMS_ITS | Encounter Summary ---
Author Organization [employer] Address [address] [place] [address] Care Team Providers Care Label Folder Name Role Phone Unavailable Primary Care Provider Unavailabl e Encounter Details Date Type Department Care Team (Late st Contact Info) Description 11/25/2020 Transcribed Document [facility] Family Medicine [address] [place] [address] ProviderLeón MD [address] [place], [place] [address] Social History Tobacco Use Types Packs/Day Years Used Date Smoking Tobacco: Never Assessed Comments Unknown Sex and Gender Information Value Date Recorded Sex Assigned at Not on file Legal Sex Female 6:09 PM CDT Gender Identity Not on file Sexual Orientation Not on file documented as of this encounter Miscellaneous Notes * [employer] Conversion Note - Historical ProviderMD - 11/25/2020 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
--- NOTE | 2025-04-24 17:32 | HMH.EDGENADL ---
Discharge Plan Disposition Patient Disposition: Home, Self-Care Condition: Good Prescriptions Prescriptions: No Action levothyroxine [Synthroid] 75 mcg tablet 55 mcg PO DAILY omeprazole 20 mg capsule,delayed release(DR/EC) 20 mg PO DAILY famotidine 20 mg tablet 20 mg PO Patient Comments: TAKE 1 TABLET BY MOUTH ONCE DAILY AT BEDTIME Referrals Follow up/Referrals: Nadia Drummond MD [Primary Care Provider, Family Practice] - See instructions Activity Restrictions/Add. Instructions Additional Instructions/Restrictions: Please return to the emergency department with any worsening signs or symptoms, please follow-up with your PCP and food analyst in the upcoming days/weeks, most likely you had an episode of vasovagal syncope. Continue to have good intake with p.o. solids and fluids, continue to take all your medications as prescribed, be careful going from a sitting to standing position. Clinical Impressions Clinical Impression: Syncope, vasovagal Instructions Patient Instructions: DI for Syncope in Adults (Fainting) Print Language Print Language: [place] Discharge ED Provider: Johan Crisostomo General Adult HPI <YONATHAN Jiménez - Last Filed: 04/24/25 18:41> General Chief complaint: Syncope Stated complaint: Pass out earlier,does not feel right Time Seen by Provider: 04/24/25 17:16 Mode of Arrival: Ambulatory Source of Information: Patient Limitations: No Limitations Description of Symptoms (Recalled from ER Triage Doc. by RN): pt presents to the ER after having a syncope episode today around 12:00. pt states she was walking and passed ot. pt reports she hasn't felt right since and has been having palpitations. pt hx of anemia. History of Present Illness HPI narrative: 29-year-old female presents to the emergency department with an unwitnessed syncopal episode today around 12 PM, patient states that she went from laying on the couch, to walking when she had a syncopal episode, she has had previous syncopal episodes in the past, last syncopal episode was over a year ago, she does endorse some chest soreness/chest pain at this time, she admits to some shortness of breath, as well as palpitations , she denies any fever chills cough congestion, no recent sick contacts, no abdominal pain no nausea no vomiting no constipation no diarrhea, no urinary type symptomatology, no hematuria melena hematochezia hematochezia, no vaginal denies an otology, patient denies any alcohol tobacco or drug use, patient is unsure of downtime, she denies striking the head, she did state that she did feel the episode coming on, she felt heavy , and lowered herself down to the ground. Other past medical history consistent with DUB, PCOS, history of remote vasovagal syncope, anemia, history of gastric sleeve, GERD, patient states last menstrual period was several weeks ago, and she is due for it in 2 days . Initial triage vitals notable for tachycardia otherwise unremarkable. Onset (ago): hour(s) Related Data Home Medications ?Medication ?Instructions ?Recorded ?Confirmed levothyroxine 75 mcg tablet 55 mcg PO DAILY hypothyroid 07/27/21 03/25/25 (Synthroid) omeprazole 20 mg capsule,delayed 20 mg PO DAILY 06/26/24 03/25/25 release famotidine 20 mg tablet 20 mg PO 03/25/25 03/25/25 Allergies Allergy/AdvReac Type Severity Reaction Status Date / Time adhesive Allergy Intermediate Rash Verified 03/25/25 14:15 amoxicillin Allergy Nausea Verified 03/25/25 14:15 hydrocodone Allergy Rash Verified 03/25/25 14:15 [facility] <YONATHAN Jiménez - Last Filed: 04/24/25 18:41> [facility] Disclaimer: The information contained in this section may have been updated after the patient was seen, as this information can be updated by other users. Medical History DUB (dysfunctional uterine bleeding) Pyelonephritis PCOS (polycystic ovarian syndrome) Surgical History H/O gastric sleeve History of carpal tunnel release H/O knee surgery History of cholecystectomy History of tonsillectomy Family History Mother AMARO (nonalcoholic steatohepatitis) Other Cancer Diabetes Hypertension Social History Smoking Status: Never smoker alcohol intake: never substance use type: denies use current occupational status: employed Travel in the last 8 weeks?: None household members: spouse and children Have you lived/traveled outside US in past 30 days?: No Contact w/someone who lives/traveled outside US past 30 days?: No Exposure to someone with infectious disease in past 14 days?: No Do you have a fever (greater than 100.4 F or 38 C)?: No Have you tested positive for COVID-19?: No Exposed to someone with COVID-19 in past 14 days?: No Do you have a sore throat?: No Do you have a cough?: No Do you have any weakness?: No Do you have any diarrhea?: No Are you experiencing any unusual bleeding?: No Do you have any muscle aches/pain?: No Do you have any abdominal pain?: No Are you experiencing loss of taste or smell?: No Other Medical History Have you received the Flu Vaccine for this season: No Have you received the Pneumonia Vaccine: No <YONATHAN Jiménez - Last Filed: 04/24/25 18:41> ROS Obtained: Yes All systems reviewed & no additional complaints except as documented Physical Exam <YONATHAN Jiménez - Last Filed: 04/24/25 18:41> General General appearance: alert and in no apparent distress Head Head exam: atraumatic and normocephalic Eye Eye exam: Present PERRL and EOMI ENT ENT exam: Present mucous membranes moist Neck Neck exam: Present normal inspection Chest Chest inspection: Present normal inspection and symmetric chest wall rise Respiratory Respiratory exam: Present normal lung sounds bilaterally; Absent respiratory distress, wheezes or stridor Cardiovascular Cardiovascular exam: Present normal rhythm and tachycardia Abdominal Exam Abdominal exam: Present soft; Absent tenderness, guarding, rebound or rigidity Extremities Exam Extremities exam: Present normal inspection Neurological Exam Neurological exam: Present alert and oriented X3 Psychiatric Psychiatric exam: Present normal affect Skin Skin exam: Present warm and dry Medical Decision Making <YONATHAN Jiménez - Last Filed: 04/24/25 18:41> Medical Records Medical records reviewed: Yes I reviewed the patient's medical records. Screening: Per USPSTF and CDC recommendations, given the prevalence of disease in our region, it is our hospital?s policy to screen for HIV and viral Hepatitis for all patients aged 18 and over and those with ongoing risk factors. Vital Signs: 04/24/25 17:17 04/24/25 17:26 04/24/25 17:31 Temperature 97.8 F 97.8 F Temperature Source Oral Oral Pulse Rate 125 H Pulse Rate [Orthostatic Lying] Pulse Rate [Orthostatic Sitting] Pulse Rate [Orthostatic Standing] Pulse Rate [Right] 125 H Respiratory Rate 18 18 Blood Pressure 128/87 Blood Pressure [Orthostatic Lying Right Arm] Blood Pressure [Orthostatic Sitting] Blood Pressure [Orthostatic Standing] Blood Pressure [Right Radial Artery] 128/87 Blood Pressure Mean [Right Radial Artery] 100 Blood Pressure Source Automatic Cuff Blood Pressure Source [Right Radial Artery] Automatic Cuff Blood Pressure Position Supine Blood Pressure Position [Right Radial Artery] Supine 02 Sat by Pulse Oximetry 100 100 100 Oxygen Delivery Method Room Air Room Air Room Air 04/24/25 17:40 04/24/25 17:43 04/24/25 18:00 Temperature Temperature Source Pulse Rate 101 H 84 Pulse Rate [Orthostatic Lying] 93 H Pulse Rate [Orthostatic Sitting] 93 H Pulse Rate [Orthostatic Standing] 121 H Pulse Rate [Right] Respiratory Rate 16 16 Blood Pressure 119/76 109/70 L Blood Pressure [Orthostatic Lying Right Arm] 113/71 Blood Pressure [Orthostatic Sitting] 119/76 Blood Pressure [Orthostatic Standing] 118/79 Blood Pressure [Right Radial Artery] Blood Pressure Mean [Right Radial Artery] Blood Pressure Source Blood Pressure Source [Right Radial Artery] Blood Pressure Position Blood Pressure Position [Right Radial Artery] 02 Sat by Pulse Oximetry 100 100 Oxygen Delivery Method Room Air Room Air Lab Data Lab results reviewed: Yes I reviewed the patient's lab results. Lab Results 04/24/25 17:21: WBC 7.0, RBC 5.73 H, Hgb 12.2, Hct 41.0, MCV 71.6 L, MCH 21.3 L, MCHC 29.8 L, RDW 15.8, Plt Count 242, MPV 10.0, Neut % (Auto) 58.2, Lymph % (Auto) 33.1, [place] % (Auto) 6.2, Eos % (Auto) 1.9, Baso % (Auto) 0.3, Neut # (Auto) 4.1, Lymph # (Auto) 2.3, [place]ruff # (Auto) 0.4, Eos # (Auto) 0.1, Baso # (Auto) 0.0, D-Dimer 0.42, Sodium 140, Potassium 4.0, Chloride 106, Carbon Dioxide 24, Anion Gap 14.0, BUN 13, Creatinine 0.80, Estimated Creat Clear 102, Estimated GFR 84, Est GFR ( Amer) 101, Glucose 92, Calcium 10.0, Magnesium 2.3, Total Bilirubin 0.9, AST 25, ALT 17, Alkaline Phosphatase 80, Troponin I < 0.01, NT-Pro-B Natriuret Pep 32.2, Total Protein 9.0 H, Albumin 5.3 H, Globulin 3.7 H, Albumin/Globulin Ratio 1.4, Thyroxine (T4) 9.7, Serum HCG, Qual Negative, HIV Ag/Ab Combo Qual Negative 04/24/25 17:36: Urine Color Yellow, Urine Appearance Clear, Urine pH 6.0, Ur Specific [place] 1.020, Urine Protein Negative, Urine Glucose (UA) Negative, Urine Ketones 1+, Urine Blood Negative, Urine Nitrate Negative, Urine Bilirubin Negative, Urine Urobilinogen 0.2, Ur Leukocyte Esterase 1+ A, Urine RBC 5-10, Urine WBC 50-100, Ur Squamous Epith Cells 50-100, Urine Bacteria 4+, Urine Mucus 4+ 04/24/25 17:21 04/24/25 17:21 Orders (Tests/Meds): ED MEDICATIONS Discontinued Medications Generic Name Dose Route Start Last Admin Trade Name Freq PRN Reason Stop Dose Admin Lactated Ringer's 1,000 mls @ 999 mls/hr 04/24/25 17:26 04/24/25 17:35 Lactated Ringer's 1000 Ml Bag IV 04/24/25 18:26 999 mls/hr .Q1H1M ONE Administration ORDERS Category Date Time Status XR chest portable Stat Exams 04/24/25 17:27 Completed Complete Blood Count Auto Diff Stat Lab 04/24/25 17:21 Completed Comprehensive Metabolic Panel Stat Lab 04/24/25 17:21 Completed D-Dimer Stat Lab 04/24/25 17:21 Completed HCG Qualitative, Serum Stat Lab 04/24/25 17:21 Completed HIV Combo Stat Lab 04/24/25 17:21 Completed Hepatitis C Ab Qual. W/ RFX Stat Lab 04/24/25 17:21 Received Magnesium Stat Lab 04/24/25 17:21 Completed NT Pro Brain Natriuretic Pep. Stat Lab 04/24/25 17:21 Completed T4 (Thyroxine) Stat Lab 04/24/25 17:21 Results TSH [Thyroid Stimulating Hormone] Stat Lab 04/24/25 17:21 Results Troponin I Q3H Lab 04/24/25 20:30 Ordered Troponin I Q3H Lab 04/24/25 23:30 Ordered Troponin I Stat Lab 04/24/25 17:21 Completed Urinalysis and Microscopic Stat Lab 04/24/25 17:36 Completed Urine Culture Stat Micro 04/24/25 17:36 Received Medical Decision Narrative: 29-year-old female presents to the emergency department with chest pain, syncopal episode unwitnessed today, differential diagnose include but not limited to, ACS, cardiac arrhythmia, electrolyte disturbance, vasovagal syncope, cardiogenic syncope, situational syncope, PE, orthostatic hypotension. I discussed this patient with the attending physician Dr. Crisostomo Will obtain basic laboratory studies, D-dimer, hCG qualitative, magnesium level proBNP troponin, urinalysis, TSH and reflex T4, orthostatic vital signs, CXR, 1 L LR IV will be given.] CBC is notable for MCV which is decreased at 71.6 otherwise unremarkable. Serum hCG qualitative negative. Urinalysis notable 1+ ketonuria, negative nitrites, 1+ leukocyte Estrace. D-dimer is less than 0.42, thus ruling out VTE/PE. Orthostatics negative. Microscopic analysis of the urine is noted for 5-10 RBCs, 50-100 WBCs, 4+ bacteria, 4+ urine mucus and 50-100 squamous cells. Troponin is less than 0.01, proBNP within normal limits. I reviewed the patient's chest x-ray along with the corresponding radiologic report no acute findings. T4 within normal limits, reexamination of the patient approximately 6:35 PM, patient is feeling better, has remained hemodynamically stable throughout her time in the emergency room, tachycardia has improved. Patient has signs and symptoms/clinical history consistent with most likely vasovagal syncope, I recommend follow-up with PCP and food analyst in the upcoming days/weeks, strict ED return precautions given, patient voiced understanding and agree with current treatment plan/discharge plan. <Johan Crisostomo MD - Last Filed: 04/24/25 18:46> Trevor Inquiry Pt receiving controlled substance: No Vital Signs: 04/24/25 17:17 04/24/25 17:26 04/24/25 17:31 Temperature 97.8 F 97.8 F Temperature Source Oral Oral Pulse Rate 125 H Pulse Rate [Orthostatic Lying] Pulse Rate [Orthostatic Sitting] Pulse Rate [Orthostatic Standing] Pulse Rate [Right] 125 H Respiratory Rate 18 18 Blood Pressure 128/87 Blood Pressure [Orthostatic Lying Right Arm] Blood Pressure [Orthostatic Sitting] Blood Pressure [Orthostatic Standing] Blood Pressure [Right Radial Artery] 128/87 Blood Pressure Mean [Right Radial Artery] 100 Blood Pressure Source Automatic Cuff Blood Pressure Source [Right Radial Artery] Automatic Cuff Blood Pressure Position Supine Blood Pressure Position [Right Radial Artery] Supine 02 Sat by Pulse Oximetry 100 100 100 Oxygen Delivery Method Room Air Room Air Room Air 04/24/25 17:40 04/24/25 17:43 04/24/25 18:00 Temperature Temperature Source Pulse Rate 101 H 84 Pulse Rate [Orthostatic Lying] 93 H Pulse Rate [Orthostatic Sitting] 93 H Pulse Rate [Orthostatic Standing] 121 H Pulse Rate [Right] Respiratory Rate 16 16 Blood Pressure 119/76 109/70 L Blood Pressure [Orthostatic Lying Right Arm] 113/71 Blood Pressure [Orthostatic Sitting] 119/76 Blood Pressure [Orthostatic Standing] 118/79 Blood Pressure [Right Radial Artery] Blood Pressure Mean [Right Radial Artery] Blood Pressure Source Blood Pressure Source [Right Radial Artery] Blood Pressure Position Blood Pressure Position [Right Radial Artery] 02 Sat by Pulse Oximetry 100 100 Oxygen Delivery Method Room Air Room Air Lab Data Lab Results 04/24/25 17:21: WBC 7.0, RBC 5.73 H, Hgb 12.2, Hct 41.0, MCV 71.6 L, MCH 21.3 L, MCHC 29.8 L, RDW 15.8, Plt Count 242, MPV 10.0, Neut % (Auto) 58.2, Lymph % (Auto) 33.1, [place] % (Auto) 6.2, Eos % (Auto) 1.9, Baso % (Auto) 0.3, Neut # (Auto) 4.1, Lymph # (Auto) 2.3, [place] # (Auto) 0.4, Eos # (Auto) 0.1, Baso # (Auto) 0.0, D-Dimer 0.42, Sodium 140, Potassium 4.0, Chloride 106, Carbon Dioxide 24, Anion Gap 14.0, BUN 13, Creatinine 0.80, Estimated Creat Clear 102, Estimated GFR 84, Est GFR ( Amer) 101, Glucose 92, Calcium 10.0, Magnesium 2.3, Total Bilirubin 0.9, AST 25, ALT 17, Alkaline Phosphatase 80, Troponin I < 0.01, NT-Pro-B Natriuret Pep 32.2, Total Protein 9.0 H, Albumin 5.3 H, Globulin 3.7 H, Albumin/Globulin Ratio 1.4, Thyroxine (T4) 9.7, Serum HCG, Qual Negative, HIV Ag/Ab Combo Qual Negative 04/24/25 17:36: Urine Color Yellow, Urine Appearance Clear, Urine pH 6.0, Ur Specific [place] 1.020, Urine Protein Negative, Urine Glucose (UA) Negative, Urine Ketones 1+, Urine Blood Negative, Urine Nitrate Negative, Urine Bilirubin Negative, Urine Urobilinogen 0.2, Ur Leukocyte Esterase 1+ A, Urine RBC 5-10, Urine WBC 50-100, Ur Squamous Epith Cells 50-100, Urine Bacteria 4+, Urine Mucus 4+ Orders (Tests/Meds): ED MEDICATIONS Discontinued Medications Generic Name Dose Route Start Last Admin Trade Name Freq PRN Reason Stop Dose Admin Lactated Ringer's 1,000 mls @ 999 mls/hr 04/24/25 17:26 04/24/25 17:35 Lactated Ringer's 1000 Ml Bag IV 04/24/25 18:26 999 mls/hr .Q1H1M ONE Administration ORDERS Category Date Time Status XR chest portable Stat Exams 04/24/25 17:27 Completed Complete Blood Count Auto Diff Stat Lab 04/24/25 17:21 Completed Comprehensive Metabolic Panel Stat Lab 04/24/25 17:21 Completed D-Dimer Stat Lab 04/24/25 17:21 Completed HCG Qualitative, Serum Stat Lab 04/24/25 17:21 Completed HIV Combo Stat Lab 04/24/25 17:21 Completed Hepatitis C Ab Qual. W/ RFX Stat Lab 04/24/25 17:21 Received Magnesium Stat Lab 04/24/25 17:21 Completed NT Pro Brain Natriuretic Pep. Stat Lab 04/24/25 17:21 Completed T4 (Thyroxine) Stat Lab 04/24/25 17:21 Results TSH [Thyroid Stimulating Hormone] Stat Lab 04/24/25 17:21 Results Troponin I Q3H Lab 04/24/25 20:30 Ordered Troponin I Q3H Lab 04/24/25 23:30 Ordered Troponin I Stat Lab 04/24/25 17:21 Completed Urinalysis and Microscopic Stat Lab 04/24/25 17:36 Completed Urine Culture Stat Micro 04/24/25 17:36 Received ECG Data Tracing #1: Independently interpreted by me rate is 108, rhythm is regular, axis is normal, no ST elevation in anatomical contiguous leads, QTc 390. Medical Decision Narrative: 29-year-old female presents to the emergency department with chest pain, syncopal episode unwitnessed today, differential diagnose include but not limited to, ACS, cardiac arrhythmia, electrolyte disturbance, vasovagal syncope, cardiogenic syncope, situational syncope, PE, orthostatic hypotension. I discussed this patient with the attending physician Dr. Crisostomo Will obtain basic laboratory studies, D-dimer, hCG qualitative, magnesium level proBNP troponin, urinalysis, TSH and reflex T4, orthostatic vital signs, CXR, 1 L LR IV will be given.] CBC is notable for MCV which is decreased at 71.6 otherwise unremarkable. Serum hCG qualitative negative. Urinalysis notable 1+ ketonuria, negative nitrites, 1+ leukocyte Estrace. D-dimer is less than 0.42, thus ruling out VTE/PE. Orthostatics negative. Microscopic analysis of the urine is noted for 5-10 RBCs, 50-100 WBCs, 4+ bacteria, 4+ urine mucus and 50-100 squamous cells. Troponin is less than 0.01, proBNP within normal limits. I reviewed the patient's chest x-ray along with the corresponding radiologic report no acute findings. T4 within normal limits, reexamination of the patient approximately 6:35 PM, patient is feeling better, has remained hemodynamically stable throughout her time in the emergency room, tachycardia has improved. Patient has signs and symptoms/clinical history consistent with most likely vasovagal syncope, I recommend follow-up with PCP and food analyst in the upcoming days/weeks, strict ED return precautions given, patient voiced understanding and agree with current treatment plan/discharge plan. I was consulted by the LAKEISHA, and we discussed the complexity of the problems being addressed. I approved the treatment and management plan for this patient's care in the emergency department, thus performing a substantive portion of the medical decision making. Patient has significantly contaminated urine but no dysuria per LAKEISHA report repeat or empiric therapy will both be deferred at this point. Johan Crisostomo MD Critical Care <YONATHAN Jiménez - Last Filed: 04/24/25 18:41> Critical Care Time Critical Care Time: No
[2025-04-24 17:35] LABS: Basophils % 0.3 % (0.1-2.0); Eosinophils # 0.1 Kmm3 (0.0-0.4); Eosinophils % 1.9 % (0.1-12.0); Hemoglobin 12.2 g/dL (12.2-16.2); Immature Granulocytes # 0.02 10^3uL; Immature Granulocytes % 0.3 %; Lymphocytes # 2.3 K/mm3 (0.7-4.5); Lymphocytes % 33.1 % (10-50); Mean Corpuscular HGB Conc 29.8 g/dL (31.8-35.4); Mean Corpuscular Hemoglobin 21.3 pg (27.0-31.2); Mean Corpuscular Volume 71.6 fl (81-99); Monocytes # 0.4 K/mm3 (0.1-1.0); Monocytes % 6.2 % (1.7-9.3); Neutrophils # 4.1 K/mm3 (1.8-7.8); Neutrophils % 58.2 % (37.0-80.0); Nucleated Red Blood Cells # 0 10^3/uL; Nucleated Red Blood Cells % 0 %; Platelet Count 242 K/mm3 (142-424); Red Blood Count 5.73 M/mm3 (4.20-5.40); Red Cell Distribution Width 15.8 % (11.5-17.5); Red Cell Distribution Width-SD 39.8 fL
[2025-04-24] MEDS: LACTATED RINGERS 1000ML 1,000 ML 999 ML IV (17:35)
[2025-04-24 17:43] LABS: Microscopic, Urine URINE MICROSCOPIC (MICROSCOPIC)
[2025-04-24 17:44] LABS: Alanine Aminotransferase 17 U/L (12-78); Albumin Level 5.3 g/dl (3.5-5.0); Albumin/Globulin Ratio 1.4 (1.1-1.8); Alkaline Phosphatase 80 U/L (38-126); Aspartate Amino Transferase 25 U/L (14-36); Bilirubin,Total 0.9 mg/dl (0.2-1.3); Blood Urea Nitrogen 13 mg/dl (7-17); Carbon Dioxide 24 mmol/L (22.0-30.0); Chloride 106 mmol/L (98-107); Creatinine Clearance Estimated 102 mL/min (50-200); Estimated Glomerular Filt Rate 84 ml/min (>60); GFR (African American) 101 ML/MIN (>60); Globulin 3.7 g/dL (1.3-3.2); Glucose 92 mg/dl (74-100); Magnesium 2.3 mg/dl (1.6-2.3); Sodium 140 mmol/L (136-145)
[2025-04-24 17:46] LABS: Blood, Urine Negative (Negative); Color,Urine YELLOW (Yellow); Glucose,Urine (UA) Negative (Negative); Ketones,Urine 1+ (Negative); Leukocyte Esterase,Urine 1+ (Negative); Nitrate,Urine Negative (Negative); Protein,Urine Negative (Negative); Urobilinogen,Urine 0.2 EU/dl (0.2)
[2025-04-24 17:46] LABS: HCG Qualitative, Serum Negative (Negative)
[2025-04-24 17:47] LABS: Appearance,Urine Clear (Clear); Bilirubin,Urine Negative (Negative)
[2025-04-24 17:48] LABS: D-Dimer 0.42 ug/mL (0.0-0.5)
[2025-04-24 17:56] LABS: NT Pro Brain Natriuretic Pep. 32.2 pg/mL (0-125)
[2025-04-24 18:01] LABS: Bacteria,Urine 4+ /lpf; Mucus,Urine 4+ /lpf; Squamous Epithelial Cell,Urine 50-100 #/hpf (0-5); WBC,Urine 50-100 #/hpf (0-3)
[2025-04-24 18:02] LABS: Troponin I < 0.01 ng/ml (0.00-0.034)
[2025-04-24 18:29] LABS: HIV Combo NEGATIVE (Negative)
[2025-04-24 18:31] LABS: T4 (Thyroxine) 9.7 ug/dl (5.53-11.0)
[2025-04-24 18:45] LABS: Thyroid Stimulating Hormone 1.49 uIU/mL (0.465-4.68)
[2025-04-24 18:58] LABS: Hepatitis C Ab Qual. W/ RFX NEGATIVE (Negative)
== END 2025-04-24 19:01 | disposition home or self-care (01) ==
PROVIDERS: Physician Assistant; Emergency Provider Emergency Medicine; PCP Family Medicine
DX: R55 Syncope and collapse (principal); R00.0 Tachycardia, unspecified; Z11.59 Encounter for screening for other viral diseases; Z11.4 Encounter for screening for human immunodeficiency virus [HIV]
CPT/HCPCS: 71045; 80053; 81001; 83735; 83880; 84436; 84443; 84484; 84703; 85025; 85378; 86803; 87086; 87389; 93005; 96360; 99284; J7120

== ENCOUNTER 2025-04-29 10:23 | Outpatient (CLI) | payer BC, SELFPAY ==
--- OUTSIDE RECORDS SUMMARY | 2025-04-08 14:00 | XMS_ITS | Encounter Summary ---
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 Encounter Details Date Type Department Care Team (Late st Contact Info) Description 04/08/2025 2:00 PM EDT Office Visit Obstetrics & Gynecology [address] [place] [address] Tres Ybarra MD [address] [place] [address] Irregular menstruation, unspecified (Primary Dx); Encounter for preconception consultation Social History Tobacco Use Types Packs/Day Years Used Date Smoking Tobacco: Never Smokeless Tobacco: Never Tobacco Cessation:Counseling Given: Not Answered Alcohol Use Standard Drinks/Week Comments No 0 (1 standard drink = 0.6 oz pur e alcohol) PHQ-2 Answer Date Recorded Patient Health Questionnaire-2 Score 0 04/08/2025 [place] Depression Scale Answer Date Recorded [place] Depression Scale Total 0 02/23/2024 The thought [...] 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 The following chart [...] nursing note reviewed. Exam conducted with a motor grader operator present. EBD TEACHER TVUS WNL with right 16 mm dominant follicle Assessment Assessment & Plan Irregular menstruation, unspecified Orders: US Pelvis Transvaginal; Future Encounter for preconception consultation Discussed EBD TEACHER TVUS findings - reassurance Check D22 PROG [...] Visit Obstetrics & Gynecology [address] [place] [address] Tres Ybarra MD [address] [place] [address] documented as of this encounter Results * US Pelvis Transvaginal (04/08/2025 2:12 PM EDT) Anatomical Region Laterality Modality Pelvis Ultrasound 04/08/2025 2:20 PM EDT Impressions 04/08/2025 2:24 PM EDT The OB Ultrasound you requested has been resulted. Please navigate to the Imaging tab in [employer] for review. This message has been generated by the interface. Narrative Procedure Note Tres Ybarra MD - 04/08/2025 IMPRESSION: The OB Ultrasound you requested has been resulted. Please navigate to theImaging tab in [employer] for review. This message has been generated [...] as of this encounter Care Teams Senior Librarian Relationship Specialty Start Date End Date Nadia Goodson MD [address] [place] [address] PCP - General 01/17/23 documented as of this encounter
--- OUTSIDE RECORDS SUMMARY | 2025-04-08 14:15 | XMS_ITS | Encounter Summary ---
Author Organization Healthcare Address [address] [facility] [place] [address] Care Team Providers Care Printing Roller Polisher Name Role Phone Nadia Goodson MD Primary Care Provider [phone] Encounter Details Date Type Department Care Team (Latest Contact Info) Description 04/08/2025 2:15 PM EDT Ancillary Procedure Obstetrics & Gynecology [address] [place] [address] Irregular menstruation, unspecified Social History Tobacco Use Types Packs/Day Years Used Date Smoking Tobacco: Never Smokeless Tobacco: Never Alcohol Use Standard Drinks/Week Comments No 0 (1 standard drink = 0.6 oz pur e alcohol) PHQ-2 Answer Date Recorded Patient Health Questionnaire-2 Score 0 04/08/2025 [place] Depression Scale Answer Date Recorded [place] Depression Scale Total 0 02/23/2024 The thought [...] on file documented as of this encounter Functional Status * Over the [...] Emily Oleary documented as of this encounter Plan of Treatment Upcoming Encounters Date Type Department Care Team (Late st Contact Info) Description 02/09/2026 8:45 AM EDT Procedure Visit Obstetrics & Gynecology [address] [place] [address] Tres Ybarra MD [address] [place] [address] documented as of this encounter Procedures Procedure Name Priority Date/Time Associated Diagnosis Comments US PELVIS TRANSVAGINAL Routine 04/08/2025 2:12 PM EDT Irregular menstruation, unspecified documented in this encounter Results * US Pelvis Transvaginal (04/08/2025 2:12 PM EDT) Anatomical Region Laterality Modality Pelvis Ultrasound 04/08/2025 2:20 PM EDT Impressions 04/08/2025 2:24 PM EDT The OB Ultrasound you requested has been resulted. Please navigate to the Imaging tab in [email or web address] for review. This message has been generated by the interface. Narrative Procedure Note Tres Ybarra MD - 04/08/2025 IMPRESSION: The OB Ultrasound you requested has been resulted. Please navigate to theImaging tab in [email or web address] for review. This message has been generated by [email or web address]. us Tres Ybarra MD IMG US PROCEDURES Final Result documented in this encounter Visit Diagnoses Diagnosis Irregular menstruation, unspecified documented in this encounter Additional Health Concerns Assessment Noted Time PHQ-9 Depression Total Score: 0 02/07/20 25 8:10 AM EDT A fall risk assessment has been complete d for the patient 04/08/2025 2:16 PM EDT A Body Mass Index follow-up plan has been documented for the patient 04/08/2025 2:27 PM EDT documented as of this encounter Care Teams Printing Roller Polisher Relationship Specialty Start Date End Date Nadia Goodson MD [address] [place] [address] PCP - General 01/17/23 documented as of this encounter
--- OUTSIDE RECORDS SUMMARY | 2025-04-17 10:00 | XMS_ITS | Encounter Summary ---
Author Organization Healthcare Address [address] [place] [address] Care Team Providers Care Devops Developer Name Role Phone Nadia Goodson MD Primary Care Provider [phone] Reason for Visit * Reason Comments Labs Only Pt here for labs, on e stick, tolerated well. Encounter Details Date Type Department Care Team (Latest Contact Info) Description 04/17/2025 10:00 AM EDT Clinical Support Obstetrics & Gynecology [facility] [place] [address] Irregular menstruation, unspecified (Primary Dx) Social History Tobacco Use Types Packs/Day Years Used Date Smoking Tobacco: Never Smokeless Tobacco: Never Alcohol Use Standard Drinks/Week Comments No 0 (1 standard drink = 0.6 oz pur e alcohol) PHQ-2 Answer Date Recorded Patient Health Questionnaire-2 Score 0 04/08/2025 [place] Depression Scale Answer Date Recorded [place] Depression Scale Total 0 02/23/2024 The thought [...] EDT Procedure Visit Obstetrics & Gynecology [address] [place] [address] Tres Ybarra MD [address] [place] [address] documented as of this encounter [...] not established ng/mL 04/17/2025 8:23 PM EDT [facility] Blood Venous blood specimen / Unknown Venipuncture / Unknown 04/17/2025 10:40 AM EDT 04/17/2025 5:56 PM EDT Narrative [facility] - 04/17/2025 8:23 PM EDT Menstrual Cycle Phase Reference Intervals: Females, 18 Y and up (ng/mL) Follicular <= 0.33 Ovulation <= 2.35 Luteal 0.5-21 Post-Menopausal <0.2 reference Intervals (ng/mL): 1st Trimester 11 - 45 2nd Trimester 25 - 84 3rd Trimester 58 - 214 us Tres Ybarra MD LAB BLOOD ORDERABLES Final Resu lt [place] [address] * Thyroid Stimulating Hormone, Plasma (04/17/2025 10:40 AM EDT) Thyroid Stimulating Hormone, Plasma 2.90 0.40 - 4.20 uIU/mL 04/17/2025 6:39 PM EDT [facility] Blood Venous blood specimen / Unknown Venipuncture / Unknown 04/17/2025 10:40 AM EDT 04/17/2025 5:57 PM EDT Narrative [facility] - 04/17/2025 6:39 PM EDT Trimester Specific Ranges TSH ( IU/mL) 1st Trimester 0.1 - 3.0 2nd Trimester 0.19 - 4.06 3rd Trimester 0.3 - 3.7 Result Mary Ybarra MD LAB BLOOD ORDERABLES Final Resu lt Performing Organization Address City/[facility] [place] [address] * Free T4, Plasma (04/17/2025 10:40 AM EDT) Free T4, Plasma 1.2 0.8 - 1.7 ng/dL 04/17/2025 6:39 PM EDT [facility] Blood Venous blood specimen / Unknown Venipuncture / Unknown 04/17/2025 10:40 AM EDT 04/17/2025 5:57 PM EDT Narrative [facility] - 04/17/2025 6:39 PM EDT Free T4 Trimester Specific Ranges 1st Trimester 0.9 - 1.50 ng/dL 2nd Trimester 0.7 - 1.40 ng/dL 3rd Trimester 0.7 - 1.24 ng/dL Result Mary Ybarra MD LAB BLOOD [place] [address] documented in this encounter Visit Diagnoses Diagnosis [...] documented as of this encounter Care Teams Devops Developer Relationship Specialty Start Date End Date Nadia Goodson MD [address] [place] [address] PCP - General 01/17/23 documented as of this encounter
--- OUTSIDE RECORDS SUMMARY | 2025-04-28 13:45 | XMS_ITS | Encounter Summary ---
Author Organization Healthcare Address [address] [place] [address] Care Team Providers Care Roofing Layer Name Role Phone Nadia Goodson MD Primary Care Provider [phone] Reason for Visit * Reason Comments Labs Here for labs. Encounter Details Date Type Department Care Team (Latest Contact Info) Description 04/28/2025 1:45 PM EDT Clinical Support Obstetrics & Gynecology [facility] [place] [address] Irregular menstruation, unspecified (Primary Dx); Positive urine test Social History Tobacco Use Types Packs/Day Years Used Date Smoking Tobacco: Never Smokeless Tobacco: Never Alcohol Use Standard Drinks/Week Comments No 0 (1 standard drink = 0.6 oz pur e alcohol) PHQ-2 Answer Date Recorded Patient Health Questionnaire-2 Score 0 04/08/2025 [place] Depression Scale Answer Date Recorded [place] Depression Scale Total 0 02/23/2024 The thought [...] EDT Procedure Visit Obstetrics & Gynecology [address] [place] [address] Tres Ybarra MD [address] [place] [address] documented as of this encounter [...] not established ng/mL 04/28/2025 6:28 PM EDT [facility] Blood Venous blood specimen / Unknown Venipuncture / Unknown 04/28/2025 2:12 PM EDT 04/28/2025 5:50 PM EDT Narrative [facility] - 04/28/2025 6:28 PM EDT Menstrual Cycle Phase Reference Intervals: Females, 18 Y and up (ng/mL) Follicular <= 0.33 Ovulation <= 2.35 Luteal 0.5-21 Post-Menopausal <0.2 reference Intervals (ng/mL): 1st Trimester 11 - 45 2nd Trimester 25 - 84 3rd Trimester 58 - 214 us Tres Ybarra MD LAB BLOOD ORDERABLES Final Resu lt [facility] [address] [place] [address] * (ABNORMAL) hCG, Total Beta, Quantitative, Plasma (04/28/2025 2:12 PM EDT) hCG, Total Beta 33(H) <5 mIU/mL 6:37 PM EDT [facility] Blood Venous blood specimen / Unknown Venipuncture / Unknown 04/28/2025 2:12 PM EDT 04/28/2025 5:50 PM EDT Narrative [facility] - 04/28/2025 6:37 PM EDT [...] MD LAB BLOOD ORDERABLES Final Resu lt [facility] [address] [place] [id number] documented in this encounter Visit Diagnoses Diagnosis [...] documented as of this encounter Care Teams Roofing Layer Relationship Specialty Start Date End Date Nadia Goodson MD [address] [place] [address] PCP - General 01/17/23 documented as of this encounter
--- OUTSIDE RECORDS SUMMARY | 2025-04-29 10:25 | XMS_ITS | Encounter Summary ---
Author Organization [facility] Address [address] [place] [address] Care Team Providers Care Medical Education Manager Name Role Phone Nadia Goodson MD Primary Care Provider [phone] Reason for Visit * Reason Onset Date Comments HCN - Patient Message 04/14/2025 Encounter Details Date Type Department Care Team (Late st Contact Info) Description 04/14/2025 Telephone Obstetrics & Gynecology [address] [place] [address] Tres Ybarra MD [address] [place] [address] HCN - Patient Message Social History Tobacco Use Types Packs/Day Years Used Date Smoking Tobacco: Never Smokeless Tobacco: Never Alcohol Use Standard Drinks/Week Comments No 0 (1 standard drink = 0.6 oz pur e alcohol) PHQ-2 Answer Date Recorded Patient Health Questionnaire-2 Score 0 04/08/2025 [place] Depression Scale Answer Date Recorded [place] Depression Scale Total 0 02/23/2024 The thought [...] to be rs please Best contact number: [phone] (mobile) Optimal time of day to reach caller: ANYTIME Additional comments/information from caller: None Note: Please do not reply to this message. Follow-up communication and further actions as a result of this message need to be communicated with the patient directly, if the patient is not active onMyChart. If the patient is active on MyChart, they will receive notification of the communication/outcome via [employer]. documented in this encounter Plan of Treatment Upcoming Encounters Date Type Department Care Team (Late st Contact Info) Description 02/09/2026 8:45 AM EDT Procedure Visit Obstetrics & Gynecology [address] [place] [address] Tres Ybarra MD [address] [place] [address] documented as of this encounter [...] documented as of this encounter Care Teams Medical Education Manager Relationship Specialty Start Date End Date Nadia Goodson MD [address] [place] [address] PCP - General 01/17/23 documented as of this encounter
--- OUTSIDE RECORDS SUMMARY | 2025-04-29 10:25 | XMS_ITS | Encounter Summary ---
Author Organization [facility] Address [address] [place] [address] Care Team Providers Care Tier Truck Driver Name Role Phone Nadia Goodson MD Primary Care Provider Encounter Details Date Type Department Care Team (Latest Contact Info) Description 04/08/2025 Travel Social History Tobacco Use Types Packs/Day Years Used Date Smoking Tobacco: Never Smokeless Tobacco: Never Alcohol Use Standard Drinks/Week Comments No 0 (1 standard drink = 0.6 oz pur e alcohol) PHQ-2 Answer Date Recorded Patient Health Questionnaire-2 Score 0 04/08/2025 [place] Depression Scale Answer Date Recorded [place] Depression Scale Total 0 02/23/2024 The thought [...] EDT Procedure Visit Obstetrics & Gynecology [address] [place] [address] Tres Ybarra MD [address] [place] [address] documented as of this encounter [...] documented as of this encounter Care Teams Tier Truck Driver Relationship Specialty Start Date End Date Nadia Goodson MD [address] [place] [address] PCP - General 01/17/23 documented as of this encounter
--- OUTSIDE RECORDS SUMMARY | 2025-04-29 10:25 | XMS_ITS | Encounter Summary ---
Author Organization [facility] [employer] [facility] Address [address] [place] [address] Care Team Providers Care Utilities And Maintenance Supervisor Name Role Phone Unavailable Primary Care Provider Unavailabl e Encounter Details Date Type Department Care Team (Late st Contact Info) Description 09/24/2019 Transcribed Document [facility] Family Medicine [address] [place] [address] ProviderLeón MD [facility] [place], [place] [address] Social History Tobacco Use Types Packs/Day Years Used Date Smoking Tobacco: Never Assessed Comments Unknown Sex and Gender Information Value Date Recorded Sex Assigned at Not on file Legal Sex Female 6:09 PM CDT Gender Identity Not on file Sexual Orientation Not on file documented as of this encounter Miscellaneous Notes * Cerner Conversion Note - León ProviderMD - 09/24/2019 8:33 AM SAWDUST MACHINE OPERATOR Pain Assessment Entered On: 09/24/2019 9:40 EST [...]
--- OUTSIDE RECORDS SUMMARY | 2025-04-29 10:25 | XMS_ITS | Encounter Summary ---
Author Organization Healthcare Address [address] [place] [address] Care Team Providers Care Behavior Management Specialist Name Role Phone Nadia Goodson MD Primary Care Provider [phone] Encounter Details Date Type Department Care Team (Late st Contact Info) Description 03/27/2025 Telephone Obstetrics & Gynecology [address] [place] [address] Tres Ybarra MD [address] [place] [address] Social History Tobacco Use Types Packs/Day Years Used Date Smoking Tobacco: Never Smokeless Tobacco: Never Alcohol Use Standard Drinks/Week Comments No 0 (1 standard drink = 0.6 oz pur e alcohol) PHQ-2 Answer Date Recorded Patient Health Questionnaire-2 Score 0 04/08/2025 [place] Depression Scale Answer Date Recorded [place] Depression Scale Total 0 02/23/2024 The thought [...] 1 of her cycle Best contact number: [phone] (mobile) Optimal time of day to reach [...] will receive notification of the communication/outcome via [employer]. documented in this encounter Plan of Treatment Upcoming Encounters Date Type Department Care Team (Late st Contact Info) Description 02/09/2026 8:45 AM EDT Procedure Visit Obstetrics & Gynecology [address] [place] [address] rTes Ybarra MD [address] [place] [address] documented as of this encounter [...] documented as of this encounter Care Teams Behavior Management Specialist Relationship Specialty Start Date End Date Nadia Goodson MD [facility] [place] [address] PCP - General 01/17/23 documented as of this encounter
--- OUTSIDE RECORDS SUMMARY | 2025-04-29 10:25 | XMS_ITS | Clinical Summary ---
Author Organization [facility] Address [address] [place] [address] Care Team Providers Care Block Feeder Name Role Phone Nadia Goodson MD Primary Care Provider [phone] Allergies Active Allergy Reactions Criticality Noted Date [...] Encounters Date Type Department Care Team Description 04/28/2025 1:45 PM EDT Clinical Support Obstetrics & Gynecology [address] [place] [address] Irregular menstruation, unspecified (Primary Dx); Positive urine test 04/28/2025 Travel 04/28/2025 Telephone Obstetrics & Gynecology [address] [place] [address] Tres Ybarra MD 04/18/2025 Results Follow-Up Obstetrics & Gynecology [address] [place] [address] Tres Ybarra MD 04/17/2025 10:00 AM EDT Clinical Support Obstetrics & Gynecology [address] [place] [address] Irregular menstruation, unspecified (Primary Dx) 04/17/2025 Travel 04/14/2025 Telephone Obstetrics & Gynecology [address] [place] [address] Tres Ybarra MD HCN - Patient Message 04/08/2025 2:15 PM EDT Ancillary Procedure Obstetrics & Gynecology [address] [place] [address] Irregular menstruation, unspecified 04/08/2025 2:00 PM EDT Office Visit Obstetrics & Gynecology [address] [place] [address] Tres Ybarra MD Irregular menstruation, unspecified (Primary Dx); Encounter for preconception consultation 04/08/2025 Travel 03/27/2025 Telephone Obstetrics & Gynecology [address] [place] [address] Tres Ybarra MD 02/13/2025 Results Follow-Up Obstetrics & Gynecology [address] [place] [address] Tres Ybarra MD 02/06/2025 8:00 AM EDT Office Visit Obstetrics & Gynecology [address] [place] [address] Tres Ybarra MD Encounter for annual routine [...] Recorded Patient Health Questionnaire-2 Score 0 04/08/2025 [place] Depression Scale Answer Date Recorded [place] Depression Scale Total 0 02/23/2024 The thought [...] Visit Obstetrics & Gynecology [address] [place] [address] Tres Ybarra MD [address] [place] [address] Health Maintenance Due Date Last Done Comments [facility]-/Child/Adol SDOH Screenings 1993 HPV Vaccines (1 - 3-dose series) 2008 [facility]- SDOH Screenings 2011 [facility]-Adult SDOH Screenings 2011 [facility]-Hepatitis B Vaccines (1 of 3 - 19+ 3-dose series) 2012 [facility]-Varicella Vaccines (2 of 2 - 13+ 2-dose series) 05/27/2015 04/29/2015 [id number] Vaccine (3 - Moderna risk series) 01/06/2021 12/09/2020, 11/11/2020 [facility]-Influenza Vaccine (Season Ended) 2025 07/17/2023 [facility]-Pap Smear 10/14/2025 10/14/2022, 08/08, 05/15/2014 [facility]-Depression Screening 04/08/2026 025, 02/06/2025, 02/23/2024 [facility]-Cervical Cancer Screening 02/06/2030 [facility]-HPV/Cotest 02/06/2030 02/06/2025, 12/0 07/2022, 09/04/2014, Additional history exists [facility]-DTaP,Tdap,and Td Vaccines (2 - Td or Tdap) 11/03/2033 11/03/2023 [facility]-Zoster Vaccines (1 of 2) 2043 04/29/2015 [facility]-HIV Screening Completed 05/29/2023, 07/18/2017 [facility]-Hepatitis C Screening Completed 05/29/2023, 10/2017 [facility]-RSV Vaccine: 60+ Years or Discontinued 12/04/2023 [facility]-Obesity Intervention Completed 025, 04/17/2025, 04/08/2025, Additional history exists [facility]-HIB Vaccines Aged Out [...] EDT Irregular menstruation, unspecified Positive urine test FREE T4, PLASMA Routine 04/17/2025 10:40 AM [...] Relevant to Health Maintenance Results * Progesterone (04/28/2025 2:12 PM EDT) Only the most recent of2 resultswithin the time period is included. Progesterone III 12.7 Reference Range not established ng/mL 04/28/2025 6:28 PM EDT [facility] Blood Venous blood specimen / Unknown Venipuncture / Unknown 04/28/2025 2:12 PM EDT 04/28/2025 5:50 PM EDT Narrative [facility] - 04/28/2025 6:28 PM EDT Menstrual Cycle Phase Reference Intervals: Females, 18 Y and up (ng/mL) Follicular <= 0.33 Ovulation <= 2.35 Luteal 0.5-21 Post-Menopausal <0.2 reference Intervals (ng/mL): 1st Trimester 11 - 45 2nd Trimester 25 - 84 3rd Trimester 58 - 214 us Tres Ybarra MD LAB BLOOD ORDERABLES Final Resu lt [facility] [address] [place] [address] * (ABNORMAL) hCG, Total Beta, Quantitative, Plasma (04/28/2025 2:12 PM EDT) hCG, Total Beta 33(H) <5 mIU/mL 6:37 PM EDT [facility] Blood Venous blood specimen / Unknown Venipuncture / Unknown 04/28/2025 2:12 PM EDT 04/28/2025 5:50 PM EDT Narrative [facility] - 04/28/2025 6:37 PM EDT [...] methods or kits cannot be used interchangeably. us Tres Ybarra MD LAB BLOOD ORDERABLES Final Resu lt Performing Organization Address [facility] [place] [address] * Thyroid Stimulating Hormone, Plasma (04/17/2025 10:40 AM EDT) Thyroid Stimulating Hormone, Plasma 2.90 0.40 - 4.20 uIU/mL 04/17/2025 6:39 PM EDT [facility] Blood Venous blood specimen / Unknown Venipuncture / Unknown 04/17/2025 10:40 AM EDT 04/17/2025 5:57 PM EDT Narrative [facility] - 04/17/2025 6:39 PM EDT Trimester Specific Ranges TSH ( IU/mL) 1st Trimester 0.1 - 3.0 2nd Trimester 0.19 - 4.06 3rd Trimester 0.3 - 3.7 us Tres Ybarra MD LAB BLOOD ORDERABLES Final Resu lt Performing Organization Address [facility] [place] [address] * Free T4, Plasma (04/17/2025 10:40 AM EDT) Free T4, Plasma 1.2 0.8 - 1.7 ng/dL 04/17/2025 6:39 PM EDT [facility] Blood Venous blood specimen / Unknown Venipuncture / Unknown 04/17/2025 10:40 AM EDT 04/17/2025 5:57 PM EDT Narrative [facility] - 04/17/2025 6:39 PM EDT Free T4 Trimester Specific Ranges 1st Trimester 0.9 - 1.50 ng/dL 2nd Trimester 0.7 - 1.40 ng/dL 3rd Trimester 0.7 - 1.24 ng/dL us Tres Ybarra MD LAB BLOOD ORDERABLES Final Resu lt [facility] [address] [place] [address] * US Pelvis Transvaginal (04/08/2025 2:12 PM EDT) Anatomical Region Laterality Modality Pelvis Ultrasound 04/08/2025 2:20 PM EDT Impressions 04/08/2025 2:24 PM EDT The OB Ultrasound you requested has been resulted. Please navigate to the Imaging tab in [employer] for review. This message has been generated by the interface. Narrative Procedure Note Tres Ybarra MD - 04/08/2025 IMPRESSION: The OB Ultrasound you requested has been resulted. Please navigate to theImaging tab in [employer] for review. This message has been generated by theinterface. us Tres Ybarra MD IMG US PROCEDURES Final Result * Referred ThinPrep Pap and HPV (SO) (02/06/2025 8:23 AM EDT) Pap, Source Cx/Vagina 02/13/2025 12:50 PM EDT [facility] ([facility]) EER Referred ThinPrep Pap and HPV See Note 02/13/2025 12:50 PM EDT [facility] ([facility]) PAP, THINPREP Normal 02/13/2025 12:50 PM EDT [facility] ([facility]) High Risk HPV Normal 02/13/2025 12:50 PM EDT [facility] ([facility]) Swab Vaginal and cervical cytologic material / Unknown Non-blood Collection / Unknown 02/06/2025 8:23 AM EDT 02/06/2025 12:54 PM EDT Narrative [facility] ([facility]) - 02/13/2025 12:50 PM EDT Authorized individuals can access the Mapp Enhanced Report with an [employer] Connect account using the following link. Your local lab can assist you in obtaining the patient report if you don't have a Connect account. [email or web address] Performed By: [facility] [address] [place] [address] Security Clerk: Thompson Correa MD, PhD CLIA Number: [id number] SPECIMEN PART A. Cervical, Endocervical, Vaginal, ThinPrep Pap ([facility]) CYTOLOGY HX Date of Last Menstrual Period: N FINAL DIAGNOSIS INTERPRETATION: Negative for Intraepithelial Lesion or Malignancy. SPECIMEN ADEQUACY:Satisfactory for evaluation. Endocervical/transformation zone component present. Electronically Signed Out : [email or web address] Performed by: [facility] [address] [place] [address] [place] [address] Desire Alvarez MD, HR-HPV: Negative Test performed by the FDA-approved [employer] (Gen-Probe) APTIMA HPV test, which detects HPV genotypes: 16, 18, 31, 33, 35, 39, 45, 51, 52, 56, 58, 59, 66, and 68. This assay has been cleared for the specimen types listed below. Other specimen types have not been validated for this assay. -Clinician-collected ThinPrep Pap specimens. Performed by: [facility] [address] [place] [address] [place] [address] Desire Alvarez MD, Tres Ybarra MD LAB REF LAB BLOOD AND FLUID ORD Final Result [facility] ([facility]ITER) [address] [place] [id number] * HIV 1 & 2 Antibody/Antigen Screen (05/29/2023 10:20 AM EDT) HIV 1 & 2 Antibody/Antigen Screen Non Reactive Non Reactive 05/29/2023 2:06 PM EDT [facility] Comment:Screening for HIV 1 & 2 antibodies, and P24 antigen is NONREACTIVE. No confirmatory testing is required. Blood Venous blood specimen / Unknown Venipuncture / Unknown 05/29/2023 10:20 AM EDT 05/29/2023 1:01 PM EDT Result Mary Ybarra MD LAB BLOOD ORDERABLES Final Resu lt Performing Organization Address [facility] de Phone Number [facility] [address] [place] [address] * Hepatitis C Antibody (05/29/2023 10:20 AM EDT) Hepatitis C Antibody Negative Negative 05/29/2023 2:02 PM EDT [facility] Blood Venous blood specimen / Unknown Venipuncture / Unknown 05/29/2023 10:20 AM EDT 05/29/2023 1:01 PM EDT Result Mary Ybarra MD LAB BLOOD ORDERABLES Final Resu lt Performing Organization Address [facility] Phone Number [facility] [address] [place] [address] * Pap Test (10/14/2022 4:17 PM EST) Case Report Cytology Case: [id number] Authorizing Provider: Tres Ybarra MD Collected: 10/14/2022 [...] results is suggested (please call Microbiology at [phone] for results). 10/18/2022 11:55 AM EST [facility] Menstrual Status Not Applicable 10/06 11:55 AM EST [facility] Contraceptive History Intrauterine device 10/18/2022 11:55 AM EST [facility] Screening Type Routine Screen 2021 11:55 AM EST [facility] High Risk? No 10/18/2022 11:55 AM EST [facility] HPV Testing Requested? Request HPV Testing if ASCUS (Women 25 Years or Older) 10/18/2022 11:55 AM EST [facility] Previous Cancer History No 10/18/2022 11:55 AM EST [facility] Clinical Information Z01.419 - Encounter for annual routine gynecological examination [ICD-10-CM] 10/18/2022 11:55 AM EST [facility] Swab Vaginal and cervical cytologic material / Unknown Non-blood Collection / Unknown 10/14/2022 4:17 PM EST 10/17/2022 9:25 AM EST Tres Ybarra MD LAB CYTOLOGY ORDERABLES Final R esult Performing Organization Address City/State/[facility] Phone Number [facility] [address] [place] [phone] from Last 3 Months or Most Recently Relevant to Health Maintenance [place] [address] ROLLY Advance Directives * Full Code (Latest Code Status on File) Date Activated Date Inactivated Comments 08/09/2021 8:28 PM 08/10/2021 1:42 PM Question Answer Comments Patient has decision-making capacity? Yes * Full Code Date Activated Date Inactivated Comments 08/08/2021 3:47 AM 08/09/2021 12:51 AM Question Answer Comments Patient has decision-making capacity? Yes Care Teams Block Feeder Relationship Specialty Start Date End Date Nadia Goodson MD [address] [place] [address] PCP - General 01/17/23
--- OUTSIDE RECORDS SUMMARY | 2025-04-29 10:25 | XMS_ITS | Encounter Summary ---
Author Organization [employer] Address [address] [place] [address] Care Team Providers Care Cna Hha Name Role Phone Unavailable Primary Care Provider Unavailabl e Encounter Details Date Type Department Care Team (Late st Contact Info) Description 09/24/2019 Transcribed Document [facility] [place] [facility] Family Medicine [address] [place] [address] ProviderLeón MD [address] [place] [address] Social History Tobacco Use Types Packs/Day [...] León Joseph MD - 09/24/2019 10:05 AM DATABASE MANAGER [place] [id number] PAM FENG :1995 Visit Time:09/24/2019 Your Visit [...] bleeding, fever and or persistent vomiting. Where: [facility] [address] [place] [address]- [facility] (1) Allergies amoxicillin (C/O - vomiting) Immunizations [...] range between ( 1.0 and 7.0 ) Alger #: 0.60 K/uL -- Normal range between ( 0.24 and 0.82 ) Eos #: 0.32 K/uL -- Normal range between ( 0.04 and 0.54 ) Alger %: 7.9 % -- Normal range between [...] ) Urine Bilirubin Dipstick: Negative Urine Specific Minetto: 1.007 -- Normal range between ( 1.005 [...] 10/23/2006 Document Revised: 11/24/2017 Document Reviewed: 11/24/2017 [email or web address] Patient Education ?? 2019 [employer]. Emergency Awareness and Preventative Care STROKE is [...] Assistance with quitting is available by contacting 4-744-ATUI-NOW. This is a free resource providing counseling, [...] was given the opportunity to ask questions. Patient/Ticketer Name: Patient/Ticketer Signature: Relationship to Patient: Clinician/Hospital Ticketer Signature: Please Provide a Telephone Number Where You Can Be Reached: Is it Permissible To Leave a Message? Date: documented in this encounter Plan of Treatment Not on file documented as of this encounter Visit Diagnoses Not on filedocumented in this encounter
--- OUTSIDE RECORDS SUMMARY | 2025-04-29 10:25 | XMS_ITS | Encounter Summary ---
Author Organization Healthcare Address [address] [place] [address] Care Team Providers Care Internal Medicine Specialist Name Role Phone Nadia Goodson MD Primary Care Provider [phone] Encounter Details Date Type Department Care Team (Latest Contact Info) Description 04/17/2025 Travel Social History Tobacco Use Types Packs/Day Years Used Date Smoking Tobacco: Never Smokeless Tobacco: Never Alcohol Use Standard Drinks/Week Comments No 0 (1 standard drink = 0.6 oz pur e alcohol) PHQ-2 Answer Date Recorded Patient Health Questionnaire-2 Score 0 04/08/2025 [place] Depression Scale Answer Date Recorded [place] Depression Scale Total 0 02/23/2024 The thought [...] EDT Procedure Visit Obstetrics & Gynecology [address] [place] [address] Tres Ybarra MD [address] [place] [address] documented as of this encounter [...] documented as of this encounter Care Teams Internal Medicine Specialist Relationship Specialty Start Date End Date Nadia Goodson MD [address] [place] [address] PCP - General 01/17/23 documented as of this encounter
--- OUTSIDE RECORDS SUMMARY | 2025-04-29 10:25 | XMS_ITS | Encounter Summary ---
Author Organization [facility] Address [address] [place] [address] Care Team Providers Care Rotational Moulding Operator Name Role Phone Nadia Goodson MD Primary Care Provider Encounter Details Date Type Department Care Team (Late st Contact Info) Description 04/18/2025 Results Follow-Up Obstetrics & Gynecology [address] [place] [address] Tres Ybarra MD [address] [place] [address] Social History Tobacco Use Types Packs/Day Years Used Date Smoking Tobacco: Never Smokeless Tobacco: Never Alcohol Use Standard Drinks/Week Comments No 0 (1 standard drink = 0.6 oz pur e alcohol) PHQ-2 Answer Date Recorded Patient Health Questionnaire-2 Score 0 04/08/2025 [place] Depression Scale Answer Date Recorded [place] Depression Scale Total 0 02/23/2024 The thought [...] EDT Procedure Visit Obstetrics & Gynecology [address] [place] [address] Tres Ybarra MD [address] [place] [address] documented as of this encounter [...] documented as of this encounter Care Teams Rotational Moulding Operator Relationship Specialty Start Date End Date Nadia Goodson MD [address] [place] [address] PCP - General 01/17/23 documented as of this encounter
--- OUTSIDE RECORDS SUMMARY | 2025-04-29 10:25 | XMS_ITS | Encounter Summary ---
Author Organization [facility] Address [address] [place] [address] Care Team Providers Care Parts Room Clerk Name Role Phone Nadia Goodson MD Primary Care Provider [phone] Encounter Details Date Type Department Care Team (Late st Contact Info) Description 02/13/2025 Results Follow-Up Obstetrics & Gynecology [address] [place] [address] Tres Ybarra MD [address] [place] [address] Social History Tobacco Use Types Packs/Day Years Used Date Smoking Tobacco: Never Smokeless Tobacco: Never Alcohol Use Standard Drinks/Week Comments No 0 (1 standard drink = 0.6 oz pur e alcohol) PHQ-2 Answer Date Recorded Patient Health Questionnaire-2 Score 0 04/08/2025 [place] Depression Scale Answer Date Recorded [place] Depression Scale Total 0 02/23/2024 The thought [...] EDT Procedure Visit Obstetrics & Gynecology [address] [place] [address] Tres Ybarra MD [address] [place] [address] documented as of this encounter [...] documented as of this encounter Care Teams Parts Room Clerk Relationship Specialty Start Date End Date Nadia Goodson MD [address] [place] [address] PCP - General 01/17/23 documented as of this encounter
--- OUTSIDE RECORDS SUMMARY | 2025-04-29 10:25 | XMS_ITS | Encounter Summary ---
Author Organization [employer] Address [address] [place] [address] Care Team Providers Care Press Pipe Inspector Name Role Phone Unavailable Primary Care Provider Unavailabl e Encounter Details Date Type Department Care Team (Late st Contact Info) Description 09/24/2019 Transcribed Document [facility] Family Medicine [facility] [place] [address] ProviderLeón MD [address] [place] [address] Social History Tobacco Use Types Packs/Day Years Used Date Smoking Tobacco: Never Assessed Comments Unknown Sex and Gender Information Value Date Recorded Sex Assigned at Not on file Legal Sex Female 6:09 PM CDT Gender Identity Not on file Sexual Orientation Not on file documented as of this encounter Miscellaneous Notes * Cerner Conversion Note - Historical ProviderMD - 09/24/2019 5:36 AM DIRECTOR SOCIAL ED Triage Entered On: 09/24/2019 5:47 EST Performed On: 09/24/2019 5:42 EST by MINDI WONG MYSQL DATABASE DEVELOPER Triage Across the Room Triage Date/Time : 09/24/2019 5:42 EST Chief Complaint : Pt c/o fever and vaginal bleeding x2 days. Pt stated she is on her period but the bleeding is more than usual; +abdominal cramping. No med taken SCIENCE INSTRUCTOR MINDI WONG, RN - 09/24/2019 5:42 EST MINDI WONG RN - 09/24/2019 5:42 EST DCP GENERIC CODE Tracking Group : [facility] ED [place] MINDI WONG RN - [...] Immunization : Less than 5 years MINDI OWNG RN - 09/24/2019 5:42 EST Infectious Disease [...] 09/24/2019 05:47:35 EST) Problems(Active) Asthma (SNOMED CT :883132603 ) Name of Problem: Asthma ; Recorder: RAJNI RAMIREZ RN; Confirmation: Confirmed ; Classification: Medical ; Code: 366936788 ; Contributor System: PowerChart ; Last Updated: 09/01/2018 18:05 EDT ; Life Cycle Date: 09/01/2018 ; Life Cycle Status: Active ; Vocabulary: SNOMED CT Hypothyroid (SNOMED CT :59317200 ) Name of Problem: Hypothyroid ; Recorder: RAJNI RAMIREZ RN; Confirmation: Confirmed ; Classification: Medical ; Code: [id number] ; Contributor System: PowerChart ; Last Updated: 09/01/2018 18:05 EDT ; Life Cycle Date: 09/01/2018 ; Life Cycle Status: Active ; Vocabulary: SNOMED CT PCOS (polycystic ovarian syndrome) (SNOMED CT :839287067 ) Name of Problem: PCOS (polycystic ovarian syndrome) ; Recorder: RAJNI RAMIREZ RN; Confirmation: Confirmed ; Classification: Medical ; Code: [id number] ; Contributor System: Core Competence ; Last Updated: 09/01/2018 18:05 EDT ; Life Cycle Date: 09/01/2018 ; Life Cycle Status: Active ; Vocabulary: SNOMED CT Diagnoses(Active) Abdominal pain Date: 09/24/2019 ; Diagnosis Type: Reason For Visit ; Confirmation: Complaint of ; Clinical Dx: Abdominal pain ; Classification: Medical ; Clinical Service: Emergency medicine ; Code: PNED ; Probability: 0 ; Diagnosis Code: [id number] Fever Date: 09/24/2019 ; Diagnosis Type: Reason For Visit ; Confirmation: Complaint of ; Clinical Dx: Fever ; Classification: Medical ; Clinical Service: Emergency medicine ; Code: PNED ; Probability: 0 ; Diagnosis Code: [id number] Vaginal bleeding Date: 09/24/2019 ; Diagnosis Type: Reason For Visit ; Confirmation: Complaint of ; Clinical Dx: Vaginal bleeding ; Classification: Medical ; Clinical Service: Emergency medicine ; Code: PNED ; Probability: 0 ; Diagnosis Code: [id number] ED Height and Weight Height Source : Stated Height Entry Format : [place] Height, Feet : 5 ft(Converted to: 152 cm, 60 Inch) Height, Inches : 5 Inch(Converted to: 0 ft 5 Inch, 12.70 cm) Clinical Height : 165.1 cm Weight Source, ED : Standing scale Weight Entry Format : [place] Weight, Pounds : 220 lb Clinical Dosing Weight : 100 kg Body Surface Area (BSA) : 2.06 m2 Body Mass Index : 36.7 kg/m2 (HI) [place] Body Weight (IBW) : 56.59 kg MINDI [...] - 09/24/2019 5:42 EST Electronically signed by [facility], [facility] Conversion Director Craft Center Cerner at 02/19/2023 9:39 AM CDT documented in this encounter Plan of Treatment Not on file documented as of this encounter Visit Diagnoses Not on filedocumented in this encounter
--- OUTSIDE RECORDS SUMMARY | 2025-04-29 10:25 | XMS_ITS | Encounter Summary ---
Author Organization [employer] Address [address] [place] [address] Care Team Providers Care Cattle Sorter Name Role Phone Unavailable Primary Care Provider Unavailabl e Encounter Details Date Type Department Care Team (Late st Contact Info) Description 09/24/[address] [facility] [place] Family Medicine [facility] [place] [address] ProviderLeón MD [address] [place] [id number] Social History Tobacco Use Types Packs/Day Years Used Date Smoking Tobacco: Never Assessed Comments Unknown Sex and Gender Information Value Date Recorded Sex Assigned at Not on file Legal Sex Female 6:09 PM CDT Gender Identity Not on file Sexual Orientation Not on file documented as of this encounter Miscellaneous Notes * Cerner Conversion Note - Historical ProviderMD - 09/24/2019 9:17 AM ACCOUNT STRATEGIST documented in this encounter Plan of Treatment Not on file documented as of this encounter Visit Diagnoses Not on filedocumented in this encounter
--- OUTSIDE RECORDS SUMMARY | 2025-04-29 10:25 | XMS_ITS | Encounter Summary ---
Author Organization [employer] [facility] [employer] Address [address] [place] [address] Care Team Providers Care Chocolate Finisher Operator Name Role Phone Unavailable Primary Care Provider Unavailabl e Encounter Details Date Type Department Care Team (Late st Contact Info) Description 09/24/2019 Transcribed Document [facility] [place] Family Medicine [address] [place] [address] ProviderLeón MD [address] [place], [place] [address] Social History Tobacco Use Types Packs/Day Years Used Date Smoking Tobacco: Never Assessed Comments Unknown Sex and Gender Information Value Date Recorded Sex Assigned at Not on file Legal Sex Female 6:09 PM CDT Gender Identity Not on file Sexual Orientation Not on file documented as of this encounter Miscellaneous Notes * Cerner Conversion Note - Historical ProviderMD - 09/24/2019 5:36 AM VARNISHER PLASTICOATER [place] Suicide Severity Rating Scale (C-SSRS) Entered On: 09/24/2019 6:25 EST Performed On: 09/24/2019 6:24 EST by RENETTA NIXON RN [place] Suicide Severity Rating Scale (C-SSRS) CSSRS Past Month Wish to be : No CSSRS Past Month Suicidal Thoughts : No CSSRS Lifetime Suicide Behavior : No Suicide Severity Rating Score : 0 Suicide Severity Rating : No Additional Care Required at this time RENETTA NIXON RN - 09/24/2019 6:24 EST Electronically signed by Jimena [facility] Conversion Technical Business Analyst Kimberly at 02/19/2023 9:41 AM CDT documented in this encounter Plan of Treatment Not on file documented as of this encounter Visit Diagnoses Not on filedocumented in this encounter
--- OUTSIDE RECORDS SUMMARY | 2025-04-29 10:25 | XMS_ITS | Encounter Summary ---
Author Organization [employer] Address [address] [place] [address] Care Team Providers Care Employment Law Specialist Name Role Phone Unavailable Primary Care Provider Unavailabl e Encounter Details Date Type Department Care Team (Late st Contact Info) Description 09/24/2019 Transcribed Document [facility] [place] [address] [place] [address] ProviderLeón MD [facility] [place], [place] [address] Social History Tobacco Use Types Packs/Day Years Used Date Smoking Tobacco: Never Assessed Comments Unknown Sex and Gender Information Value Date Recorded Sex Assigned at Not on file Legal Sex Female 6:09 PM CDT Gender Identity Not on file Sexual Orientation Not on file documented as of this encounter Miscellaneous Notes * Cerner Conversion Note - León ProviderMD - 09/24/2019 5:36 AM CLINICAL RESEARCH TECH ED Assessment Entered On: 09/24/2019 6:25 EST Performed On: 09/24/2019 6:24 EST by RENETTA NIXON RN ED Quick Look Assessment Level of Consciousness : Alert, Awake RENETTA NIXON RN - 09/24/2019 6:24 EST ED General-Functional Assess Information Obtained From : Patient Communication Barrier : None Primary Language : Slovak Any Spiritual/Cultural Needs or Requests : No [...] RN) EENT Assessment EENT Assessment WDL : [facility] LEXX NIXONMOLLY - 09/24/2019 6:24 EST Cardiovascular ASMT, ED Cardiovascular Assessment WDL : [facility] HUSSAIN OZ JACKSON - 09/24/2019 6:24 EST Pulses Grid Radial Pulse, Left : 2+ normal Radial Pulse, Right : 2+ normal HUSSAIN, RENETTA - 09/24/2019 6:24 EST Respiratory Respiratory Assessment WDL : [facility] HUSSAINRENETTA RN - 09/24/2019 6:24 EST Breath Sounds Assessment Grid All Lobes Breath Sounds : Clear RENETTA NIXON RN - 09/24/2019 6:24 EST Gastrointestinal ED Gastrointestinal Assessment WDL : [facility] with exceptions Gastrointestinal Symptoms : Abdominal pain RENETTA NIXON RN - 09/24/2019 6:24 EST Genitourinary Assessment, ED Genitourinary Assessment WDL : [facility] with exceptions Genitourinary Symptoms : Vaginal bleeding RENETTA NIXON RN - 09/24/2019 6:24 EST Musculoskeletal Musculoskeletal Assessment WDL : [facility] RENETTA NIXON RN - 09/24/2019 6:24 EST Integumentary Assessment Integumentary Assessment WDL : [facility] RENETTA NIXON RN - 09/24/2019 6:24 EST Neurologic ASMT, ED Neurologic Assessment WDL : [facility] RENETTA NIXON RN - 09/24/2019 6:24 EST Electronically signed by [facility], [facility] Conversion Supervisor [employer] Cerner at 02/19/2023 9:43 AM CDT documented in this encounter Plan of Treatment Not on file documented as of this encounter Visit Diagnoses Not on filedocumented in this encounter
--- OUTSIDE RECORDS SUMMARY | 2025-04-29 10:26 | XMS_ITS | Encounter Summary ---
Author Organization [employer] [facility] [employer] Address [address] [place] [address] Care Team Providers Care Lockstitch Coat Joiner Name Role Phone Unavailable Primary Care Provider Unavailabl e Encounter Details Date Type Department Care Team (Late st Contact Info) Description 11/25/2020 Transcribed Document [facility] [place] Family Medicine [address] [place] [address] ProviderLeón MD [address] [place], [place] [id number] Social History Tobacco Use Types Packs/Day Years Used Date Smoking Tobacco: Never Assessed Comments Unknown Sex and Gender Information Value Date Recorded Sex Assigned at Not on file Legal Sex Female 6:09 PM CDT Gender Identity Not on file Sexual Orientation Not on file documented as of this encounter Miscellaneous Notes * Cerner Conversion Note - Historical ProviderMD - 11/25/2020 10:52 AM SENIOR JAVA UI DEVELOPER [place] Violence Assessment Entered On: 11/25/2020 14:03 EST Performed On: 11/25/2020 14:03 EST by LALI SEAY RN [place] Violence Assessment [place] Violence Checklist of Symptoms : None [place] Violence Symptoms Subtotal : 0 [place] Violence Symptoms Indicator : Low risk (0) LALI SEAY RN - 11/25/2020 14:03 EST Electronically signed by Jimena [facility] Conversion Dye Range Operator Cloth Cerner at 02/19/2023 9:42 AM CDT documented in this encounter Plan of Treatment Not on file documented as of this encounter Visit Diagnoses Not on filedocumented in this encounter
--- OUTSIDE RECORDS SUMMARY | 2025-04-29 10:26 | XMS_ITS | Encounter Summary ---
Author Organization [employer] Address [address] [place] [address] Care Team Providers Care Hospital Housekeeper Name Role Phone Unavailable Primary Care Provider Unavailabl e Encounter Details Date Type Department Care Team (Late st Contact Info) Description 11/25/2020 Transcribed Document [facility] [facility] [place] [address] ProviderLeón MD [address] [place] [address] Social History Tobacco Use Types Packs/Day Years Used Date Smoking Tobacco: Never Assessed Comments Unknown Sex and Gender Information Value Date Recorded Sex Assigned at Not on file Legal Sex Female 6:09 PM CDT Gender Identity Not on file Sexual Orientation Not on file documented as of this encounter Miscellaneous Notes * Cerner Conversion Note - León ProviderMD - 11/25/2020 10:52 AM BACK PANEL PADDER ED Assessment Entered On: 11/25/2020 14:03 EST Performed On: 11/25/2020 14:01 EST by LALI SEAY RN ED Quick Look Assessment Level of Consciousness : Alert, Awake Affect/Behavior : Appropriate, Calm, Cooperative Orientation : Oriented x 4 Skin Temperature : Warm Skin Description : Dry, [place] LALI SEAY RN - 11/25/2020 14:01 EST ED General-Functional Assess Information Obtained From : Patient Preferred Communication Mode : Verbal Communication Barrier : None Primary Language : Trinidadian Any Spiritual/Cultural Needs or Requests : No [...] LALI SEAY RN - 11/25/2020 14:01 EST Hanna Coma Canelo Best Motor Response : Obey commands Hanna Best Verbal Response : Oriented Canelo Eye Opening Response : Spontaneous Canelo Coma Score : 15 LALI SEAY RN - 11/25/2020 14:01 EST documented in this encounter Plan of Treatment Not on file documented as of this encounter Visit Diagnoses Not on filedocumented in this encounter
--- OUTSIDE RECORDS SUMMARY | 2025-04-29 10:26 | XMS_ITS | Encounter Summary ---
Author Organization [employer] Address [address] [place] [address] Care Team Providers Care Iuss Master Analyst Name Role Phone Unavailable Primary Care Provider Unavailabl e Encounter Details Date Type Department Care Team (Late st Contact Info) Description 09/24/2019 Transcribed Document [facility] [place] [address] [place] [address] ProviderLeón MD [facility] [place], [place] [address] Social History Tobacco Use Types Packs/Day Years Used Date Smoking Tobacco: Never Assessed Comments Unknown Sex and Gender Information Value Date Recorded Sex Assigned at Not on file Legal Sex Female 6:09 PM CDT Gender Identity Not on file Sexual Orientation Not on file documented as of this encounter Miscellaneous Notes * Cerner Conversion Note - Historical ProviderMD - 09/24/2019 7:56 AM ALARM SIGNAL OPERATOR Vital Signs ED Entered On: 09/24/2019 8:38 [...]
--- OUTSIDE RECORDS SUMMARY | 2025-04-29 10:26 | XMS_ITS | Encounter Summary ---
Author Organization [employer] Address [address] [place] [address] Care Team Providers Care Front Desk Administrator Name Role Phone Unavailable Primary Care Provider Unavailabl e Encounter Details Date Type Department Care Team (Late st Contact Info) Description 11/25/2020 Transcribed Document [facility] [place] Family Medicine [address] [place] [address] ProviderLeón MD [address] [place] [id number] Social History Tobacco Use Types Packs/Day Years Used Date Smoking Tobacco: Never Assessed Comments Unknown Sex and Gender Information Value Date Recorded Sex Assigned at Not on file Legal Sex Female 6:09 PM CDT Gender Identity Not on file Sexual Orientation Not on file documented as of this encounter Miscellaneous Notes * Cerner Conversion Note - León ProviderMD - 11/25/2020 4:27 PM PUBLIC POLICY MEDIATOR ED Discharge Entered On: 11/25/2020 16:27 EST Performed On: 11/25/2020 16:27 EST by AMBER HANSEN Groundwater Consultant Process Patient Disposition : Discharge Personal Belongings [...] 11/25/2020 16:27 EST Electronically signed by Jimena [facility] Conversion Senior Sourcing Manager Cerner at 02/19/2023 9:39 AM CDT documented in this encounter Plan of Treatment Not on file documented as of this encounter Visit Diagnoses Not on filedocumented in this encounter
--- OUTSIDE RECORDS SUMMARY | 2025-04-29 10:26 | XMS_ITS | Encounter Summary ---
Author Organization [employer] Address [address] [place] [address] Care Team Providers Care Mattress Stuffer Name Role Phone Unavailable Primary Care Provider Unavailabl e Encounter Details Date Type Department Care Team (Late st Contact Info) Description 11/25/2020 Transcribed Document [facility] [place] [facility] [place] [address] ProviderLeón MD [address] [place] [address] Social History Tobacco Use Types Packs/Day Years Used Date Smoking Tobacco: Never Assessed Comments Unknown Sex and Gender Information Value Date Recorded Sex Assigned at Not on file Legal Sex Female 6:09 PM CDT Gender Identity Not on file Sexual Orientation Not on file documented as of this encounter Miscellaneous Notes * Cerner Conversion Note - León ProviderMD - 11/25/2020 10:52 AM CLERICAL PROOFREADER ED Triage Entered On: 11/25/2020 11:06 EST Performed On: 11/25/2020 11:03 EST by ALBERTO CHAVES ANALYTICS ARCHITECT Triage Across the Room Chief Complaint : pt states NAGY for last 2 days, worst NAGY of life, pressure in back of head, no other symptoms noted, Triage Date/Time : 11/25/2020 11:03 EST ALBERTO CHAVES RN - 11/25/2020 11:03 EST DCP GENERIC CODE Tracking Acuity : 3 - Urgent Tracking Group : [facility] ED ALBERTO CHAVES RN - 11/25/2020 [...] 11/25/2020 11:06:17 EST) Problems(Active) Asthma (SNOMED CT :080829760 ) Name of Problem: Asthma ; Recorder: RAJNI RAMIREZ RN; Confirmation: Confirmed ; Classification: Medical ; Code: [id number] ; Contributor System: ParentingInformerChart ; Last Updated: 09/01/2018 18:05 EDT ; Life Cycle Date: 09/01/2018 ; Life Cycle Status: Active ; Vocabulary: SNOMED CT Hypothyroid (SNOMED CT :54954421 ) Name of Problem: Hypothyroid ; Recorder: RAJNI RAMIREZ RN; Confirmation: Confirmed ; Classification: Medical ; Code: 31760294 ; Contributor System: ParentingInformerChart ; Last Updated: 09/01/2018 18:05 EDT ; Life Cycle Date: 09/01/2018 ; Life Cycle Status: Active ; Vocabulary: SNOMED CT PCOS (polycystic ovarian syndrome) (SNOMED CT :135508795 ) Name of Problem: PCOS (polycystic ovarian syndrome) ; Recorder: RAJNI RAMIREZ RN; Confirmation: Confirmed ; Classification: Medical ; Code: [id number] ; Contributor System: House Party ; Last Updated: 09/01/2018 18:05 EDT ; Life Cycle Date: 09/01/2018 ; Life Cycle Status: Active ; Vocabulary: SNOMED CT Diagnoses(Active) Headache Date: 11/25/2020 ; Diagnosis Type: Reason For Visit ; Confirmation: Complaint of ; Clinical Dx: Headache ; Classification: Medical ; Clinical Service: Emergency medicine ; Code: PNED ; Probability: 0 ; Diagnosis Code: [id number] ED Height and Weight Height Source : Stated Height Entry Format : [place] Height, Feet : 5 ft(Converted to: 152 cm, 60 Inch) Height, Inches : 5 Inch(Converted to: 0 ft 5 Inch, 12.70 cm) Clinical Height : 165.1 cm Weight Source, ED : Critical estimated dosing weight Weight Entry Format : [place] Weight, Pounds : 220 lb Clinical Dosing Weight : 100 kg Body Surface Area (BSA) : 2.06 m2 Body Mass Index : 36.7 kg/m2 (HI) [place] Body Weight (IBW) : 56.59 kg ALBERTO [...]
--- OUTSIDE RECORDS SUMMARY | 2025-04-29 10:26 | XMS_ITS | Encounter Summary ---
Author Organization [employer] Address [address] [place] [address] Care Team Providers Care Civil Drafter Name Role Phone Unavailable Primary Care Provider Unavailabl e Encounter Details Date Type Department Care Team (Late st Contact Info) Description 11/25/2020 Transcribed Document [facility] Radiology [address] [place] [address] Virgie Armendariz MD [facility] Dept [place] [address] Social History Tobacco Use Types Packs/Day Years [...] Female : 1995 Associated Diagnoses: Headache Author: MRATA FLORES PA-C Basic Information Time seen: Date [...] at maximum was 10 /10. , just GLOVE CUFFER . The degree at present is moderate, [...] EST Height Source Stated Height Entry Format [place] Height/Length, INDIAN (ft) 5 ft Height/Length INDIAN 5 Inch CLINICALHEIGHT 165.1 cm [place] Body Weight 56.59 kg Weight Source, ED Critical estimated dosing weight Weight Entry Format [place] Weight Icelandic lb 220 lb CLINICALWEIGHT 100 kg Body [...] % 26.1 % Lymph # 2.37 x10(3)/uL [place] % 6.1 % [place] # 0.55 K/uL Eos % 1.3 % Eos # 0.12 x10(3)/uL Baso % 0.3 % Baso # 0.03 x10(3)/uL Slide Review No IG# 0.03 x10(3)/uL IG% 0.30 % . Radiology results: Radiology Results (Last 48 hours) [id number] -- 11/25/2020 10:52 CT Head WO (11/25/2020 [...] instructions. Notes: I certify that the Physician Jewelry Designer performed the services as delegated. I agree with the assessment, treatment plan and disposition of the patient as recorded by the Physician Jewelry Designer. This document was created with [employer] dictation software and unidentified operations mgr errors may be present.. . documented in this encounter Plan of Treatment Not on file documented as of this encounter Visit Diagnoses Not on filedocumented in this encounter
--- OUTSIDE RECORDS SUMMARY | 2025-04-29 10:26 | XMS_ITS | Encounter Summary ---
Author Organization [employer] Address [address] [place] [address] Care Team Providers Care Swinging Cut Off Saw Operator Name Role Phone Unavailable Primary Care Provider Unavailabl e Encounter Details Date Type Department Care Team (Late st Contact Info) Description 09/24/2019 Transcribed Document [facility] Family Medicine [facility] [place] [address] ProviderLeón MD [address] [place] [address] [id number] Social History Tobacco Use Types Packs/Day Years Used Date Smoking Tobacco: Never Assessed Comments Unknown Sex and Gender Information Value Date Recorded Sex Assigned at Not on file Legal Sex Female 6:09 PM CDT Gender Identity Not on file Sexual Orientation Not on file documented as of this encounter Miscellaneous Notes * Cerner Conversion Note - León ProviderMD - 09/24/2019 6:15 AM SYSTEM SUPPORT TECHNICIAN Patient: PAM FENG Age: 24 years Sex: [...] than usual; +abdominal cramping. No med taken TURN OUT WORKER . History of Present Illness 24-year-old female [...] started fertility medication last Monday. Patient sees administration assistant Chandan Lucas. Patient is with history of [...] EST Height Source Stated Height Entry Format [place] Height/Length, POLISH (ft) 5 ft Height/Length POLISH 5 Inch CLINICALHEIGHT 165.1 cm Mathews Body Weight 56.59 kg Weight Source, ED Standing scale Weight Entry Format [place] Weight Occitan lb 220 lb CLINICALWEIGHT 100 kg Body [...] Triage: ED C-SSRS: ED Clinical Reconciliation: ED biological science technician fish: HCG Urine Qualitative: LENNY Prep: NaCl 0.9% [...] Color Red Urine Appearance Cloudy Urine Specific [place] 1.007 Urine pH Dipstick 5.5 LOW Urine [...] % 27.7 % Lymph # 2.10 K/uL [place] % 7.9 % [place] # 0.60 K/uL Eos % 4.2 % Eos # 0.32 K/uL Baso % 0.4 % Baso # 0.03 K/uL Slide Review No IG# 0 x10(3)/uL IG% 0 % PT 9.6 Second(s) INR 0.9 PTT 25.4 Second(s) Wet Prep See Result LENNY Prep See Result Specimen Type swab . Radiology results: Radiology Results (Last 48 hours) [id number] -- 09/24/2019 05:36 US Transvaginal Non Ob [...] a subjective fever yesterday. Rosenda Meyer MD Electronically signed by Jimena [facility] Conversion Certified [place] Administrator Cerner at 02/19/2023 9:58 AM CDT documented in this encounter Plan of Treatment Not on file documented as of this encounter Visit Diagnoses Not on filedocumented in this encounter
--- OUTSIDE RECORDS SUMMARY | 2025-04-29 10:26 | XMS_ITS | Encounter Summary ---
Author Organization Healthcare Address [address] [place] [address] Care Team Providers Care Finished Goods Planner Name Role Phone Pcp, No Primary Care Provider Nadia Todd MD Primary Care Provider [phone] Pcp, No Primary Care Provider Nadia Todd MD Primary Care Provider [phone] Encounter Details Date Type Department Care Team (Late st Contact Info) Description 10/31/2019 Legacy OTTR Encounter Historical OTTR [address] [place] [address] Provider, MD León [address] [place] [address] Social History Tobacco Use Types Packs/Day [...] EDT Procedure Visit Obstetrics & Gynecology [address] [place] [address] Tres Ybarra MD [address] [place] [address] documented as of this encounter Visit Diagnoses Not on filedocumented in this encounter Care Teams Finished Goods Planner Relationship Specialty Start Date End Date Pcp, No [address] [place] [address] PCP - General 08/07/21 08/08/21 Nadia Goodson MD [address] [place] [address] PCP - General 08/09/21 08/09/21 Pcp, No [address] [place] [address] PCP - General Family Medicine 07/08/22 01/16/23 Nadia Goodson MD [address] [place] [address] PCP - General 01/17/23 documented as of this encounter
--- OUTSIDE RECORDS SUMMARY | 2025-04-29 10:26 | XMS_ITS | Data Portability ---
Author Organization [facility] EFRAIN Jones FERGUSON CLOSED Address [address] [facility] [address] [place] [address] Care Team Providers Care Scout Sniper Name Role Phone SOFÍA GOODSON Primary Care Provider [phone] SOFÍA GOODSON Referring Provider Assessment No assessment recorded. Plan of Treatment Reminders Order Date Submit Date Provider Last Modified By Organization Details Last Modified Time Details Appointments None recorded. Lab urinalysis panel, auto 2019 020 [facility] [address], [address] [facility], [place], [address], 0 22:32:25 culture, urine [address] [facility], [address] [place] [address], [place], [address], 0 22:32:25 Referral None recorded. Procedures None recorded. Surgeries None recorded. Imaging None recorded. Medication Orders Macrodanti n 50 mg capsule [address] [facility], [address] [place] [address], [facility], [place], [address], 0 17:35:08 Patient TargetsNo targets recorded. Patient Instructions Encounter Date Encounter Id Patient Instructions Last Modified By Organization Details Last Modified Time 01/28/2020 [id number] urine infected today - sx mild only, [...] Clean Catch Not Available [facility] Urolo [facility] [address] [facility], [place], [address], 01/28/2020 14:16:01 01/28/20 20 01/28/2020 urina lysis panel , auto Unknown Analyte Yellow Not Available [facility] [address], [address], 01/28/2020 14:16:01 01/28/20 20 01/28/2020 urina lysis panel , auto Unknown Analyte Clear Not Available [facility] [address], [address], 01/28/2020 14:16:01 01/28/20 20 01/28/2020 urina lysis panel , auto Unknown Analyte 1.015 Not Available [facility] [address], [place], [address], 01/28/2020 14:16:01 01/28/20 20 01/28/2020 urina lysis panel , auto Unknown Analyte 5.0 Not Available [facility] [address], [address], 01/28/2020 14:16:01 01/28/20 20 01/28/2020 urina lysis panel , auto Unknown Analyte 500 Derick/ul (++) Not Available [facility] Urol[facility] gy [address], [address], 01/28/2020 14:16:01 01/28/20 20 01/28/2020 urina lysis panel , auto Unknown Analyte Negati ve Not Available [facility] Urol[facility] [address] [facility], [place], [address], 01/28/2020 14:16:01 01/28/20 20 01/28/2020 urina lysis panel , auto Unknown Analyte Negati ve Not Available [facility] Urolo [facility] [address] [place], [address], 01/28/2020 14:16:01 01/28/20 20 01/28/2020 urina lysis panel , auto Unknown Analyte Normal Not Available [facility] [address] [facility], [place], [address], 01/28/2020 14:16:01 01/28/20 20 01/28/2020 urina lysis panel , auto Unknown Analyte Negati ve Not Available [facility] Urol[facility] [address] [facility], [place], [address], 01/28/2020 14:16:01 01/28/20 20 01/28/2020 urina lysis panel , auto Unknown Analyte Normal Not Available [facility] [address] [facility], [place], [address], 01/28/2020 14:16:01 01/28/20 20 01/28/2020 urina lysis panel , auto Unknown Analyte Negati ve Not Available [facility]rol[facility] [address] [place], [address], 01/28/2020 14:16:01 01/28/20 20 01/28/2020 urina lysis panel , auto Unknown Analyte Negati ve Not Available [facility]rol[facility] [address] [place], [address], 01/28/2020 14:16:01 01/28/20 20 01/28/2020 urina lysis panel , auto Unknown Analyte Automa eliud Not Available [facility]rol[facility] [address] [place], [address], 01/28/2020 14:16:01 01/28/20 20 01/28/2020 urina lysis panel , auto Unknown Analyte 5 - 10 Not Available [facility] [address] [place], [address], 01/28/2020 14:16:01 01/28/20 20 01/28/2020 urina lysis panel , auto Unknown Analyte None Seen Not Available [facility] Urol[facility] [address] [facility], [place], [address], 01/28/2020 14:16:01 01/28/20 20 01/28/2020 urina lysis panel , auto Unknown Analyte None Seen Not Available Cu/Lc Urolo [facility] [address] [place], [address], 01/28/2020 14:16:01 01/28/20 20 01/28/2020 urina lysis panel , auto Unknown Analyte 4+ Not Available [facility]rology [facility] [address] [facility], [place], [address], 01/28/2020 14:16:01 01/28/20 20 01/28/2020 cultu re, urine results Sourc e: CCUR Colle cted: 01/27 14:50 Site: Recei shae : 01/27 19:32 URINE SCREE N(CUL TURE) FINAL 01/29 12:53 01/29 COLON Y COUNT : > 100,0 00 CFU/M L Three or more isola carolina; mixed skin luca . Not Available [facility] [address] [place], [address], 01/30/2020 12:53:25 Result Notes None recorded. Procedures Surgical History Date Name Laterality Status Provider Name and Address Organization Details Recorded Time Tonsillectomy completed Mcdade Tobias [facility] 01/28/2020 14:04:41 [place] Teeth Extraction completed Sofía Collado [facility] 01/28/2020 14:04:48 Ovarian Cystectomy completed Sofíavasyl sue [facility] 01/28/2020 14:04:55 Imaging Results None recorded. Procedure Notes None recorded. Medical Equipment None Reported. Allergies Allergen ID Allergen Name Allergen Category Reaction Reaction Severity Criticality Documentation Date Start Date Code Code System Note Provider Name and Address Organization Details Recorded Time 120105 amoxicill in medicatio n Not available Not available Not available 01/28/2020 723 RxNorm Sofía Collado [facility] 0 14:00:08 Medications Name Sig Start Date [...] Updated DateTime 01/28/2020 165.1 cm 37.4 kg/m2 862235.28 g Sofía Collado [facility] 01/28/2020 13:59:49 Social History Question Answer Notes LastModified by Organizat ion Details LastModified Time Tobacco Smoking Status [facility] 14:04:22 Marital Status Informatio n not [...] available 2019 14:04:19 Medical History Condition Response Anxiety Disorder Y Allergies/Hayfever Y Anemia Y Heart Arrhythmia Y Thyroid Disorder Y Depression Y Asthma Y Gynecological HistoryNo gynecological history recorded. Obstetrics History GPAL:G 0 P 0 0 0 0 Past Encounters Encounter ID Performer Location Encounter Start Date Encounter Closed Date Diagnosis/Indication Diagnosis SNOMED-CT Code Diagnosis ICD10 Code Diagnosis Note [id number] BELL WALKER MD UROLOGY [address] [facility] [place] [address] 01/28/2020 13:21:02 01/30/2020 10:40:37 Recurrent urinary tract infection 516486210 N39.0 Acute urin jacquie tract infection 690313555 N39.0 Aram hematuria 09971149 5 R31.0 Dyspareunia 13577890 N94 .10 Health Concerns Section Related Observation LastModified by Organization Detai ls LastModified Time None Recorded Concern Status LastModified by Organization Details LastModified Time None Recorded Advance Directives Directive None Recorded Payers Insurance Date Sequence Insurance Name Policy Number Policy Wilson Covered Member ID Wilson Member ID Guarantor Name 01/28/2020 1 [place] [id number] [employer] [id number] Deal 03/02/2020 1 [place] [id number] [place] [id number] [employer] Notes Date Note Type Note Provider Name [...] comorbid disease is noted. BELL WALKER MD [facility] [place], [address], [facility] 01/28/2020 17:39:11 OBGyn Episode No OBEpisode recorded.
--- OUTSIDE RECORDS SUMMARY | 2025-04-29 10:26 | XMS_ITS | Encounter Summary ---
Author Organization [employer] Address [address] [place] [address] Care Team Providers Care Top Precipitator Operator Name Role Phone Unavailable Primary Care Provider Unavailabl e Encounter Details Date Type Department Care Team (Late st Contact Info) Description 11/25/2020 Transcribed Document [facility] [place] [place] Family Medicine [address] [place] [address] ProviderLeón MD [facility] [place] [address] Social History Tobacco Use Types Packs/Day Years Used Date Smoking Tobacco: Never Assessed Comments Unknown Sex and Gender Information Value Date Recorded Sex Assigned at Not on file Legal Sex Female 6:09 PM CDT Gender Identity Not on file Sexual Orientation Not on file documented as of this encounter Miscellaneous Notes * Cerner Conversion Note - Historical ProviderMD - 11/25/2020 11:11 AM RADIOPHARMACIST ED POC - URINE HCG Entered On: 11/25/2020 14:40 EST Performed On: 11/25/2020 14:20 EST by LALI SEAY RN Point of Care Urine HCG HCG Result : Negative Internal Control Line Present : Yes Internal Control Background Clear : Yes LALI SEAY RN - 11/25/2020 14:39 EST Electronically signed by Jimena [facility] Conversion Cinder Dump Crane Operator Cerner at 02/19/2023 9:37 AM CDT documented in this encounter Plan of Treatment Not on file documented as of this encounter Visit Diagnoses Not on filedocumented in this encounter
--- OUTSIDE RECORDS SUMMARY | 2025-04-29 10:26 | XMS_ITS | Encounter Summary ---
Author Organization [employer] Address [address] [place] [address] Care Team Providers Care Overlock Elastic Attacher Name Role Phone Unavailable Primary Care Provider Unavailabl e Encounter Details Date Type Department Care Team (Late st Contact Info) Description 11/25/2020 Transcribed Document [facility] Family Medicine [facility] [place] [address] ProviderLeón MD [address] [place] [address] Social History Tobacco Use Types Packs/Day Years Used Date Smoking Tobacco: Never Assessed Comments Unknown Sex and Gender Information Value Date Recorded Sex Assigned at Not on file Legal Sex Female 6:09 PM CDT Gender Identity Not on file Sexual Orientation Not on file documented as of this encounter Miscellaneous Notes * Cerner Conversion Note - Historical ProviderMD - 11/25/2020 3:34 PM MILL ROLL REWINDER documented in this encounter Plan of Treatment Not on file documented as of this encounter Visit Diagnoses Not on filedocumented in this encounter
--- OUTSIDE RECORDS SUMMARY | 2025-04-29 10:26 | XMS_ITS | Data Portability ---
Author Organization [facility] [place] [facility] AD[facility] Address [address] [place] [id number] Care Team Providers Care Telemetry Registered Nurse Name Role Phone NADIA VAUGHN Primary Care Provider Assessment No assessment recorded. Plan of Treatment Reminders Order Date Submit Date Provider Last Modified By Organization Details Last Modified Time Details Appointments TELEPHONI C VISIT 15 2024 03:40P M Angelito Estrada, DNP, DIRECTOR OUTCOMES, COMPUTER METEOROLOGIST-C Not available Not available Not available Lab HbA1c (hemoglob in A1c), blood 2024 025 [facility], [address], [address], [place], [address], 01/17/2025 12:47:29 TSH + free T4, serum 2024 025 [email or web address] [facility], [address], [address], [place], [address], 01/17/2025 12:47:30 lipid panel, serum 2024 025 [email or web address] [facility], [address], [place], [address], 01/17/2025 12:47:30 iron + TIBC + ferritin, serum 2024 025 [email or web address] [facility], [address], [place], [address], 01/17/2025 12:47:29 folate, serum 2024 025 [facility], [address], [address], [place], [address], 01/17/2025 12:47:29 prealbumi n, serum 2024 025 [email or web address] [facility], [address], [address], [place], [address], 01/17/2025 12:47:29 thiamine, QN, blood 2024 025 [email or web address] [facility], [address], [address], [place], [address], 01/17/2025 12:47:29 methylmal cristiano, QN, serum or plasma 2024 025 [email or web address] [facility], [address], [address], [place], [address], 01/17/2025 12:47:29 vitamin D, 25-hydrox y, total, serum 2024 025 [email or web address] [facility], [address], [address], [place], [address], 01/17/2025 12:47:29 vitamin E, serum 2024 025 [email or web address] [facility], [address], [address], [place], [address], 01/17/2025 12:47:29 vitamin A (retinol) , serum 2024 025 [email or web address] [facility], [address], [address], [place], [address], 01/17/2025 12:47:29 CBC w/ auto diff 03/06/ 2025 03/06/2 025 [email or web address] [facility], [address], [address], [place], [address], 01/17/2025 12:47:29 CMP, serum or plasma 2024 025 [facility], [address], [address], [place], [address], 01/17/2025 12:47:29 Referral None recorded. Procedures None recorded. Surgeries None recorded. Imaging MRI, abdomen, w/wo contrast 2023 024 [email or web address] 19 [facility] ([facility]), [address], [place], [address], 04/30/2024 08:27:15 Medication Orders Zepbound 10 mg/0.5 mL subcutane ous pen injector 2024 025 [facility], [address], [place], [address], 04/04/2025 09:24:46 ondansetr on 4 mg disintegr ating tablet 2024 025 [facility], [address], [place], [address], 04/04/2025 09:24:48 Zepbound 7.5 mg/0.5 mL subcutane ous pen injector 2024 025 [facility] - [facility], [address], [place], [address], 03/06/2025 14:11:55 Zepbound 5 mg/0.5 mL subcutane ous pen injector 2024 025 [facility], [address], [place], [address], 04/04/2025 09:17:26 Zepbound 2.5 mg/0.5 mL subcutane ous pen injector 2024 025 [facility] - [facility], [address], [place], [address], 03/06/2025 13:58:34 famotidin e 20 mg tablet 2024 025 [facility] - [facility], [address] [facility] [address], [place], [address], 01/09/2025 13:40:29 omeprazol e 20 mg capsule,d elayed release 2024 025 [facility] - [facility], [address] [facility] [address], [place], [address], 01/09/2025 13:40:31 Patient TargetsNo targets recorded. Patient InstructionsNo instructions recorded. Reason for Referral None Reported. Results Created Date Observation Date Name Description Value Unit Range Abnormal Flag Note LastModifiedBy Organization Detail LastModifiedTime 01/10/2001/10/2025 FE+TI BC+FE R iron bind.cap.(TI BC) 479 ug/dL 250-45 0 above high normal Not Available [facility] ([facility]) [address] [facility], [place], [address], 01/19/2025 08:36:15 01/10/2001/10/2025 FE+TI BC+FE R UIBC 456 ug/dL 131-42 5 above high normal Not Available [facility] ([facility]) [address] [place], [address], 01/19/2025 08:36:15 01/10/20 25 01/10/2025 FE+TI BC+FE R iron 23 ug/dL 27-159 below low normal Not Available [facility] ([facility]) [address] [place], [address], 01/19/2025 08:36:15 01/10/20 25 01/10/2025 FE+TI BC+FE R iron saturation 5 % 15-55 alert low Not Available [facility] ([facility]) [address] [place], [address], 01/19/2025 08:36:15 01/10/20 25 01/10/2025 FE+TI BC+FE R ferritin 7 NG/mL 15-150 below low normal Not Available [facility] ([facility]) [address] [place], [address], 01/19/2025 08:36:15 01/10/20 25 01/10/2025 TSH+F REE T4 TSH 3.330 uIU/m L 0.450- 4.500 normal Not Available [facility] ([facility]) [address] [place], [address], 01/19/2025 08:36:16 01/10/20 25 01/10/2025 TSH+F REE T4 T4,free(dire ct) 1.20 NG/dL 0.82-1 .77 normal Not Available [facility] ([facility]) [address] [place], [address], 01/19/2025 08:36:16 01/10/20 25 01/10/2025 CBC WITH DIFFE RENTI AL/PL ATELE T WBC 7.2 x10e3 /uL 3.4-10 .8 normal Not Available [facility] ([facility]) [address] [place], [address], 01/19/2025 08:36:16 01/10/20 25 01/10/2025 CBC WITH DIFFE RENTI AL/PL ATELE T RBC 4.86 x10e6 /uL 3.77-5 .28 normal Not Available [facility] ([facility]) [address] [place], [address], 01/19/2025 08:36:16 01/10/20 25 01/10/2025 CBC WITH DIFFE RENTI AL/PL ATELE T hemoglobin 10.0 g/dL 11.1-1 5.9 below low normal Not Available [facility] ([facility]) [address] [place], [address], 01/19/2025 08:36:16 01/10/2001/10/2025 CBC WITH DIFFE RENTI AL/PL ATELE T hematocrit 33.3 % 34.0-4 6.6 below low normal Not Available [facility] ([facility]) [address] [place], [address], 01/19/2025 08:36:16 01/10/20 25 01/10/2025 CBC WITH DIFFE RENTI AL/PL ATELE T MCV 69 fL 79-97 below low normal Not Available [facility] ([facility]) [address] [place], [address], 01/19/2025 08:36:16 01/10/20 25 01/10/2025 CBC WITH DIFFE RENTI AL/PL ATELE T MCH 20.6 pg 26.6-3 3.0 below low normal Not Available [facility] ([facility]) [address] [place], [address], 01/19/2025 08:36:16 01/10/2001/10/2025 CBC WITH DIFFE RENTI AL/PL ATELE T MCHC 30.0 g/dL 31.5-3 5.7 below low normal Not Available [facility] ([facility]) [address] [place], [address], 01/19/2025 08:36:16 01/10/20 25 01/10/2025 CBC WITH DIFFE RENTI AL/PL ATELE T RDW 14.7 % 11.7-1 5.4 Not Available [facility] ([facility]) [address] [facility], [place], [address], 01/19/2025 08:36:16 01/10/20 25 01/10/2025 CBC WITH DIFFE RENTI AL/PL ATELE T platelets 265 x10e3 /uL 150-45 0 normal Not Available [facility] ([facility]) [address] [facility], [place], [address], 01/19/2025 08:36:16 01/10/20 25 01/10/2025 CBC WITH DIFFE RENTI AL/PL ATELE T neutrophils 66 % not estab. normal Not Available [facility] ([facility]) [address] [facility], [place], [address], 01/19/2025 08:36:16 01/10/20 25 01/10/2025 CBC WITH DIFFE RENTI AL/PL ATELE T lymphs 24 % not estab. normal Not Available [facility] ([facility]) [address] [facility], [place], [address], 01/19/2025 08:36:16 01/10/20 25 01/10/2025 CBC WITH DIFFE RENTI AL/PL ATELE T monocytes 8 % not estab. normal Not Available [facility] ([facility]) [address] [facility], [place], [address], 01/19/2025 08:36:16 01/10/20 25 01/10/2025 CBC WITH DIFFE RENTI AL/PL ATELE T eos 2 % not estab. normal Not Available [facility] ([facility]) [address] [facility], [place], [address], 01/19/2025 08:36:16 01/10/20 25 01/10/2025 CBC WITH DIFFE RENTI AL/PL ATELE T basos 0 % not estab. normal Not Available [facility] ([facility]) [address] [facility], [place], [address], 01/19/2025 08:36:16 01/10/20 25 01/10/2025 CBC WITH DIFFE RENTI AL/PL ATELE T immature cells COMPUTER METEOROLOGIST Not Available [facility] ([facility]) [address] [facility], [place], [address], 01/19/2025 08:36:16 01/10/20 25 01/10/2025 CBC WITH DIFFE RENTI AL/PL ATELE T neutrophils (absolute) 4.7 x10e3 /uL 1.4-7. 0 normal Not Available [facility] ([facility]) [address] [facility], [place], [address], 01/19/2025 08:36:16 01/10/20 25 01/10/2025 CBC WITH DIFFE RENTI AL/PL ATELE T lymphs (absolute) 1.7 x10e3 /uL 0.7-3. 1 normal Not Available [facility] ([facility]) [address] [place], [address], 01/19/2025 08:36:16 01/10/20 25 01/10/2025 CBC WITH DIFFE RENTI AL/PL ATELE T monocytes(ab solute) 0.6 x10e3 /uL 0.1-0. 9 normal Not Available [facility] ([facility]) [address] [place], [address], 01/19/2025 08:36:16 01/10/20 25 01/10/2025 CBC WITH DIFFE RENTI AL/PL ATELE T eos (absolute) 0.1 x10e3 /uL 0.0-0. 4 normal Not Available [facility] ([facility]) [address] [place], [address], 01/19/2025 08:36:16 01/10/20 25 01/10/2025 CBC WITH DIFFE RENTI AL/PL ATELE T baso (absolute) 0.0 x10e3 /uL 0.0-0. 2 normal Not Available [facility] ([facility]) [address] [facility], [place], [address], 01/19/2025 08:36:16 01/10/20 25 01/10/2025 CBC WITH DIFFE RENTI AL/PL ATELE T immature granulocytes 0 % not estab. Not Available [facility] ([facility]) [address] [facility], [place], [address], 01/19/2025 08:36:16 01/10/20 25 01/10/2025 CBC WITH DIFFE RENTI AL/PL ATELE T immature grans (abs) 0.0 x10e3 /uL 0.0-0. 1 Not Available [facility] ([facility]) [address] [facility], [place], [address], 01/19/2025 08:36:16 01/10/20 25 01/10/2025 CBC WITH DIFFE RENTI AL/PL ATELE T NRBC COMPUTER METEOROLOGIST Not Available [facility] ([facility]) [address] [facility], [place], [address], 01/19/2025 08:36:16 01/10/20 25 01/10/2025 CBC WITH DIFFE RENTI AL/PL ATELE T hematology comments: COMPUTER METEOROLOGIST Not Available [facility] ([facility]) [address] [facility], [place], [address], 01/19/2025 08:36:16 01/10/20 25 01/10/2025 COMP. METAB OLIC PANEL (14) glucose 74 mg/dL 70-99 normal Not Available [facility] ([facility]) [address] [place], [address], 01/19/2025 08:36:18 01/10/20 25 01/10/2025 COMP. METAB OLIC PANEL (14) BUN 12 mg/dL 6-20 normal Not Available [facility] ([facility]) [address] [place], [address], 01/19/2025 08:36:18 01/10/20 25 01/10/2025 COMP. METAB OLIC PANEL (14) creatinine 0.60 mg/dL 0.57-1 .00 normal Not Available [facility] ([facility]) [address] [place], [address], 01/19/2025 08:36:18 01/10/20 25 01/10/2025 COMP. METAB OLIC PANEL (14) eGFR 123 mL/mi n/1.7 3 >59 normal Not Available [facility] ([facility]) [address] [facility], [address], 01/19/2025 08:36:18 01/10/20 25 01/10/2025 COMP. METAB OLIC PANEL (14) BUN/creatini ne ratio 20 9-23 normal Not Available [facility] ([facility]) [address] [facility] [place], [address], 01/19/2025 08:36:18 01/10/20 25 01/10/2025 COMP. METAB OLIC PANEL (14) sodium 139 mmol/ L 134-14 4 normal Not Available [facility] ([facility]) [address] [facility] [place], [address], 01/19/2025 08:36:18 01/10/20 25 01/10/2025 COMP. METAB OLIC PANEL (14) potassium 4.1 mmol/ L 3.5-5. 2 normal Not Available [facility] ([facility]) [address] [facility], [address], 01/19/2025 08:36:18 01/10/20 25 01/10/2025 COMP. METAB OLIC PANEL (14) chloride 103 mmol/ L 96-106 normal Not Available [facility] ([facility]) [address] [facility] [place], [address], 01/19/2025 08:36:18 01/10/20 25 01/10/2025 COMP. METAB OLIC PANEL (14) carbon dioxide, total 21 mmol/ L 20-29 normal Not Available [facility] ([facility]) [address] [facility], [address], 01/19/2025 08:36:18 01/10/20 25 01/10/2025 COMP. METAB OLIC PANEL (14) calcium 9.0 mg/dL 8.7-10 .2 normal Not Available [facility] ([facility]) [address] [place], [address], 01/19/2025 08:36:18 01/10/20 25 01/10/2025 COMP. METAB OLIC PANEL (14) protein, total 7.3 g/dL 6.0-8. 5 normal Not Available [facility] ([facility]) [address] [facility] [place], [address], 01/19/2025 08:36:18 01/10/20 25 01/10/2025 COMP. METAB OLIC PANEL (14) albumin 4.8 g/dL 3.9-4. 9 normal Not Available [facility] ([facility]) [address] [facility], [address], 01/19/2025 08:36:18 01/10/20 25 01/10/2025 COMP. METAB OLIC PANEL (14) globulin, total 2.5 g/dL 1.5-4. 5 Not Available [facility] ([facility]) [address] [facility] [place], [address], 01/19/2025 08:36:18 01/10/20 25 01/10/2025 COMP. METAB OLIC PANEL (14) bilirubin, total 0.3 mg/dL 0.0-1. 2 normal Not Available [facility] ([facility]) [address] [facility] [place], [address], 01/19/2025 08:36:18 01/10/20 25 01/10/2025 COMP. METAB OLIC PANEL (14) alkaline phosphatase 104 IU/L 44-121 normal Not Available [facility] ([facility]) [address] [facility] [place], [address], 01/19/2025 08:36:18 01/10/20 25 01/10/2025 COMP. METAB OLIC PANEL (14) AST (SGOT) 16 IU/L 0-40 normal Not Available [facility] ([facility]) [address] [facility], [address], 01/19/2025 08:36:18 01/10/20 25 01/10/2025 COMP. METAB OLIC PANEL (14) ALT (SGPT) 11 IU/L 0-32 normal Not Available [facility] ([facility]) [address] [place], [address], 01/19/2025 08:36:18 01/10/20 25 01/10/2025 LIPID PANEL cholesterol, total 161 mg/dL 100-19 9 normal Not Available [facility] ([facility]) [address] [place], [address], 01/19/2025 08:36:18 01/10/20 25 01/10/2025 LIPID PANEL triglyceride s 94 mg/dL 0-149 normal Not Available [facility] ([facility]) [address] [place], [address], 01/19/2025 08:36:18 01/10/20 25 01/10/2025 LIPID PANEL HDL cholesterol 60 mg/dL >39 normal Not Available [facility] ([facility]) [address] [place], [address], 01/19/2025 08:36:18 01/10/20 25 01/10/2025 LIPID PANEL VLDL cholesterol jessica 17 mg/dL 5-40 Not Available [facility] ([facility]) [address] [place], [address], 01/19/2025 08:36:18 01/10/20 25 01/10/2025 LIPID PANEL LDL chol calc ([facility]) 84 mg/dL 0-99 Not Available [facility]) [address] [facility], [place], [address], 01/19/2025 08:36:18 01/10/20 25 01/10/2025 LIPID PANEL LDL calc comment: COMPUTER METEOROLOGIST Not Available [facility] ([facility]) [address] [facility], [place], [address], 01/19/2025 08:36:18 01/10/20 25 01/19/2025 VITAM IN E vitamin E(alpha tocopherol) 14.6 mg/L 5.9-19 .4 Not Available [facility] ([facility]) [address] [facility], [place], [address], 01/19/2025 08:36:19 01/10/20 25 01/19/2025 VITAM IN [...] defic ient. Not Available [facility] ([facility]) [address] [facility], [place], [address], 01/19/2025 08:36:19 01/10/20 25 01/10/2025 HEMOG LOBIN A1C hemoglobin A1C 5.1 % 4.8-5. 6 normal Predi abete s: 5.7 - 6.4 Diabe [place]: >6.4 Glyce quintin contr ol for adult s with diabe [place]: <7.0 Not Available [facility] ([facility]) [address] [facility], [place], [address], 01/19/2025 08:36:19 01/10/2001/10/2025 FOLAT E (FOLI C ACID) , SERUM folate (folic acid), serum 11.6 NG/mL >3.0 normal A serum folat e victoriano ntrat ion of less than 3.1 ng/mL is consi dered to repre sent clini jessica defic iency . Not Available [facility] ([facility]) [address] [facility], [place], [address], 01/19/2025 08:36:20 01/10/2001/19/2025 VITAM IN A, SERUM vitamin A 43.8 [...] istra tion. Not Available [facility] ([facility]) [address] [facility], [place], [address], 01/19/2025 08:36:21 01/10/2001/10/2025 VITAM IN D, 25-HY [...] Endoc rine Socie ty went on to fur er defin e vitam in D insuf ficie ncy as a level betwe en 21 and 29 ng/mL (2). 1. IOM (Inst itute of Medic ine). 2010. Dieta ry refer ence intak es for calci um and D. Amalia red [place]: [facility] . 2. Sami ramos MF, Rose houston [place], Arian off-F errar i [place]AG[place], et al. Evalu ation , treat ment, and preve ntion of vitam in D defic iency : an Endoc rine Socie ty clini jessica pract ice guide line. JCEM. 2010; 96(7) :1911 -30. Not Available [facility] ([facility]) [address] [facility], [place], [address], 01/19/2025 08:36:21 01/10/20 25 01/13/2025 VITAM IN B1 (THIA MINE) , BLOOD vit. B1, whole blood 136.6 nmol/ L 66.5-2 00.0 Not Available [facility] ([facility]) [address] [place], [address], 01/19/2025 08:36:22 01/10/20 25 01/15/2025 METHY LMALO HIWOT ACID, SERUM methylmaloni c acid, serum 177 nmol/ L 0-378 Not Available [facility] ([facility]) [address] [place], [address], 01/19/2025 08:36:22 01/10/20 25 01/10/2025 PREAL BUMIN prealbumin 23 mg/dL 14-35 Not Available [facility] ([facility]) [address] [place], [address], 01/19/2025 08:36:23 04/15/20 24 04/15/2024 MRI ABD w[facility]w/O [facility] [address] [place] [address] Phone: Fax: Name: WALLY PHILLIPS Exam Date: 024 : [birth year] Age 28 years Gender : F Access ion: [id number] Physic jarett: NADIA DRUMMOND Facili ty: [facility] Facili ty HSV: Outpat ient Exam: MRI [...] Thank you for referr WALLY Villanueva to [facility]. Legall y carter gallego by TARA Aviles III 04-15 15:49: 37 CC'ed Logic: Orderi ng Provid er: RODERICK GORE CC Provid er: RODERICK GORE Attend ing Provid er: RODERICK NADIA Referr ing Provid er: RODERICK GORE Admitt ing Provid er: RODERICK NADIA [email or web address] [facility] [address], [place], [address], 01/09/2025 13:34:49 03/25/20 25 03/25/2025 XR, knee No observ ation record ed. [email or web address], [place], [place], [address], 03/27/2025 18:08:14 04/24/20 25 04/24/2025 imagi ng/di agnos tic resul t No observ ation record ed. [facility] [address], [place], [place], [address], 04/24/2025 18:30:55 04/24/20 25 04/24/2025 imagi ng/di agnos tic resul t No observ ation record ed. [facility] [address], [place], [place], [address], 04/24/2025 23:42:48 Result Notes None recorded. Problems Name Problem SNOMED Code Status Onset Date Resolution Date Notes Provider Name and Address Organization Details Recorded Time Polycystic ovary syndrome 152859676 Active 2021 YONATHAN [place] [address], [place], [address] , [place] [facility] [place] 2 09:00:55 Vitamin D deficiency 08357629 Active [address], [place] [address], [place], [address] , [place] [facility] & [place] 2 16:39:55 Laparoscop ic sleeve gastrectom y Active [address], [place] [address], [place], [address] , [place] [facility] & [place] 2 16:39:55 Hypothyroi dism 50570683 Active [address], [place] [address] [facility], [place], [address] , [place] [facility] [place] & [place] 2 16:39:56 Obesity 924680240 Active [address]UN[address], [place] [address] [facility], [place], [address] , [place] [facility] [place] & [place] 2 16:39:55 Acquired hypothyroi dism 118412030 Active [address], [place] [address] [facility], [place], [address] , [place] [facility] [place] & [place] 2 16:39:55 Indigestio n 546201776 Active [address]UN[address], [place] [address] [facility], [place], [address] , [place] [facility] [place] & [place] 2 16:39:55 Disorder of gastrointe stinal tract 682261347 Active [address]UN[address], [place] [address] [facility], [place], [address] , [place] [facility] [place] [facility] [place] 2 16:39:55 Shoulder strain 694602686 Active [address]UN[address], [place] [address] [facility], [place], [address] , [place] [facility] [place] & [place] 2 16:39:55 Prolactin level above reference range 812268702 Active [address]UNIR [address], [address] , [place], [address] , [place] [facility] [place] & [place] 2 16:39:55 Plain X-ray result abnormal 574800477 Active [address]UNIR [address], LD [address], [place], [address] , [place] [facility] [place] & [place] 2 16:39:55 Polycystic ovaries Active MUNIR GARC[address], LD [address], [place], [address] , [place] [facility] [place] & [place] 2 16:39:55 Missed period 32876905 Active MUNIR [address], LD [address] [facility], [place], [address] , [place] [facility] [place] & [place] 2 16:39:55 Mild depression 773810357 Active [address], LD [address] [facility], [place], [address] , [place] [facility] [place] & [place] 2 16:39:55 Stress 32168680 Active [address]UN[address], LD [address] [facility], [place], [address] , [place] [facility] [place] [facility] [place] 2 16:39:55 Mixed hyperlipid emia 276414546 Active [address]UNIR [address], LD [address] [facility], [place], [address] , [place] [facility] [place] & [place] 2 16:39:55 Liver enzymes level above reference range 148038448 Active MUNIR [address], LD [address] [facility], [place], [address] , [place] [facility] [place] [facility] [place] 2 16:39:55 Recurrent major depressive episodes, moderate 608467488 Active [address], LD [address] [facility], [place], [address] , [place] [facility] [place] [facility] [place] 2 16:39:55 Mood disorder 84992489 Active MUNIR [address]IS[address], LD [address] [facility], [place], [address] , [place] [facility] [place] [facility] [place] 2 16:39:55 Essential hypertensi on 12360517 Active MUNIR ALISSA [address], LD [address] [facility], [place], [address] , [place] [facility] [place] [facility] [place] 2 16:39:55 Steatotic liver disease 199948379 Active [address]UNIR [address], LD [address] [facility], [place], [address] , [place] [facility] [place] [facility] [place] 2 16:39:55 Dysthymia 92481768 Active MUNIR G[address], LD [address] [facility], [place], [address] , [place] [facility] [place] [facility] [place] 2 16:39:55 Thyroid nodule 287872679 Active MUNIR [address], LD [address] [facility], [place], [address] , [place] [facility] [place] [facility] [place] 2 16:39:55 Morbid obesity 090493844 Active MUNIR G[address], [address] [facility], [place], [address] , [place] [facility] & [place] 2 16:39:55 Goiter 2997928 Active [address], LD [address] [facility], [place], [address] , [place] [facility] & [place] 2 16:39:56 Elevated level of transamina se and lactic acid dehydrogen ase [id number] Active [address], [address] [facility], [place], [address] , [place] [facility] & [place] 2 16:39:56 Nausea [id number] Active [address], [address] [facility], [place], [address] , [place] [facility] & [place] 2 16:39:56 Body mass index 30+ - obesity 107276890 Active [address]UN[address], [address] [facility], [place], [address] , [place] [facility] & [place] 2 16:39:56 Irregular intermenst rual bleeding 14417959 Active [address]UN[address], [address] [facility], [place], [address] , [place] [facility] - [place] & [place] 2 16:39:56 Anxiety 62524699 Active [address], LD [address], [place], [address] , [place] [facility] [place] & [place] 2 16:39:56 Nodule of lung [id number] Active MUNIR GARCIA RD, LD [address], [place], [address] , [place] [facility] & [place] 2 16:39:56 Carpal tunnel syndrome of right wrist [id number] [address], LD [address] [facility], [place], [address] , [place] & [place] 2 16:39:56 Abdominal pain 58230384 Active MUNIR GARCIA RD, LD [address] [facility], [place], [address] , [place] [facility] & [place] 2 16:39:56 Pain in throat 884747297 Active 2021 TREMAYNE carcamo, [place] - [place] & [place] 2 17:14:51 Intentiona l weight loss 300535063 Active 2021 Angelito Estrada, MATTHEW, DIRECTOR OUTCOMES, COMPUTER METEOROLOGIST-C [address] [facility], [place], [address] , [place] & [place] 2 11:51:56 Heartburn 55565524 Active 2022 Angelito Estrada, MATTHEW, DIRECTOR OUTCOMES, COMPUTER METEOROLOGIST-C [address] [facility], [place], [address] , [place] - [place] & [place] 3 13:15:59 Fatigue 51763282 Active 2023 Angelito Estrada, MATTHEW, DIRECTOR OUTCOMES, COMPUTER METEOROLOGIST-C [address] [facility], [place], [address] [facility] [place] - [place] & [place] 4 10:28:55 Problem Notes None recorded. Procedures Surgical History Date Name Laterality Status Provider Name and Address Organization Details Recorded Time 08/06 Laparoscopy completed Isabel Woodsamer [place] - [place] & [place] 5 11:39:58 11/06 Website/Blog Editor Surgery completed Isabel Mccord [place] - [place] & [place] 5 11:29:41 10/06 Date of Last Pap Smear completed Ela LEAVITT - LPNT - [place] & [place] 4 11:58:37 09/23 laparoscopic sleeve gastrectomy completed Ana Moya [place] - [place] - [place] & [place] 2 13:07:03 07/15 esophagogastroduodenoscopy completed Karly Canales [place] - [place] - [place] & [place] 5 11:42:14 11/06 Carpal Tunnel Surgery completed Paige LEAVITT - LPNT - [place] & [place] 4 15:50:19 06/16 fine needle biopsy of thyroid completed Isabel Mccord [place] - [place] - [place] & [place] 5 11:39:48 02/10 esophagogastroduodenoscopy completed Karly Ireland - LPNT - [place] & [place] 5 11:33:29 11/06 Knee Surgery completed Isabel Mccord [place] - [place] & [place] 5 11:37:12 11/06 Ovarian Cystectomy completed Isabel Woodsamer [place] - [place] - [place] & [place] 5 11:37:19 11/06 cholecystectomy completed Paige LEAVITT - [place] - [place] & [place] 4 15:49:18 11/06 extraction of wisdom tooth completed Karly [place]ales [place] - [place] & [place] 5 11:37:41 11/06 tonsillectomy completed Paige Torres LPNT [facility] & [place] 4 15:49:26 11/06 ENT Surgery completed Isabel LEAVITT - LPNT [facility] & [place] 5 11:29:41 Imaging Results None recorded. Procedure Notes None recorded. Medical Equipment None Reported. Allergies Allergen ID Allergen Name Allergen Category Reaction Reaction Severity Criticality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
--- OUTSIDE RECORDS SUMMARY | 2025-04-29 10:26 | XMS_ITS | Continuity of Care Document ---
Author Organization [place] - [facility] & [facility] Bariatrics and Adv Surg Address [address] [address] [address] [place] [address] Care Team Providers Care Occupational Health Nurse Manager Name Role Phone SOFÍA VAUGHN Primary Care Provider Assessment No assessment recorded. Plan of Treatment Reminders Order Date Submit Date Provider Last Modified By Organization Details Last Modified Time Details Appointments TELEPHONI C VISIT 15 2024 03:40P Jenise Estrada, DNP, TAPE LIBRARIAN, SOLOIST DANCER-C Not available Not available Not available Lab None recorded. Referral None recorded. Procedures None recorded. Surgeries None recorded. Imaging None recorded. Medication Orders Zepbound 10 mg/0.5 mL subcutane ous pen injector 2024 025 [facility], [address] [facility] [address], [place], [address], 04/04/2025 09:24:46 ondansetr on 4 mg disintegr ating tablet 2024 025 [facility], [address], [place], [address], 04/04/2025 09:24:48 Patient TargetsNo targets recorded. Patient InstructionsNo instructions recorded. Reason for Referral None Reported. Results Created Date Observation Date Name Description Value Unit Range Abnormal Flag Note LastModifiedBy Organization Detail LastModifiedTime 05/20/20 25 03/25/2025 XR, knee No observ ation record ed. alaangelDanyelle [facility] [address], [place], [address], 03/27/2025 18:08:14 04/24/20 25 04/24/2025 imagi ng/di agnos tic resul t No observ ation record ed. [facility] [address], [place], [address], 04/24/2025 18:30:55 04/24/20 25 04/24/2025 imagi ng/di agnos tic resul t No observ ation record ed. [facility] [address], [place], [address], 04/24/2025 23:42:48 Result Notes None recorded. Problems Name Problem SNOMED Code Status Onset Date Resolution Date Notes Provider Name and Address Organization Details Recorded Time Polycystic ovary syndrome 923993723 Active 2021 YONATHAN Anderson [address] , [place], [address] , [place] - [facility] & [place] 2 09:00:55 Vitamin D deficiency 49079268 Active [address], LD [address] [facility], [place], [address] , [place] - [facility] & [place] 2 16:39:55 Laparoscop ic sleeve gastrectom y Active [address], [address] , [place], [address] , [place] [facility] & [place] 2 16:39:55 Hypothyroi dism 34529551 Active [address], [address] , [place], [address] , [place] [facility] & [place] 2 16:39:56 Obesity 688757469 Active MUNIR GARCIA RD, LD [address] , [place], [address] , [place] [facility] & [place] 2 16:39:55 Acquired hypothyroi dism 635507090 Active MUNIR [address]WELL [address]HA [address], LD [address] [facility], [place], [address] , [place] [facility] - [place] & [place] 2 16:39:55 Indigestio n 991028928 Active MUNIR POTTERMIC[address]ARCIA [address], LD [address] [facility], [place], [address] , [place] [facility] - [place] & [place] 2 16:39:55 Disorder of gastrointe stinal tract 366845214 Active MUNIR POTTERMIC[address]EL GARCIA [address], LD [address] [facility], [place], [address] , [place] [facility] & [place] 2 16:39:55 Shoulder strain 111541586 Active MUNIR ALISSA GARCIA RD, LD [address] [facility], [place], [address] , [place] [facility] & [place] 2 16:39:55 Prolactin level above reference range 760318932 Active MUNIR ALISSA GARCIA RD, LD [address] [facility], [place], [address] , [place] [facility] & [place] 2 16:39:55 Plain X-ray result abnormal 761551128 Active MUNIR ALISSA GARCIA RD, LD [address] [facility], [place], [address] , [place] [facility] & [place] 2 16:39:55 Polycystic ovaries Active MUNIR GARCIA RD, LD [address] [facility], [place], [address] , [place] [facility] & [place] 2 16:39:55 Missed period 08250250 Active MUNIR POTTERMICHAEL GARCIA RD, LD [address] [facility], [place], [address] , [place] [facility] & [place] 2 16:39:55 Mild depression 181515377 Active MUNIR MAXWELL RADHA [address], LD [address] [facility], [place], [address] , [place] - [facility] - [place] & [place] 2 16:39:55 Stress 08378824 Active MUNIR MAXWELL [address], LD [address] [facility], [place], [address] , [place] [facility] & [place] 2 16:39:55 Mixed hyperlipid emia 703090111 Active MUNIR MERCERLOLY GARCIA RD, LD [address] [facility], [place], [address] , [place] [facility] & [place] 2 16:39:55 Liver enzymes level above reference range 842376732 Active MUNIR MAXWELL RAD[address], LD [address] [facility], [place], [address] , [place] [facility] & [place] 2 16:39:55 Recurrent major depressive episodes, moderate 506716090 Active MUNIR MAXWELL RAD[address], LD [address] [facility], [place], [address] , [place] [facility] & [place] 2 16:39:55 Mood disorder 42344330 Active MUNIR MERCERLOLY GARCIA RD, LD [address] [facility], [place], [address] , [place] [facility] & [place] 2 16:39:55 Essential hypertensi on 07382708 Active MUNIR POTTERMICHAEL GARCIA RD, LD [address] [facility], [place], [address] , [place] [facility] & [place] 2 16:39:55 Steatotic liver disease 789079243 Active MUNIR GARCIA RD, LD [address] [facility], [place], [address] , [place] [facility] & [place] 2 16:39:55 Dysthymia 91939292 Active MUNIR GARCIA RD, LD [address] [facility], [place], [address] , [place] [facility] - [place] & [place] 2 16:39:55 Thyroid nodule 919652834 Active MUNIR GARCIA RD, LD [address] [facility], [place], [address] , [place] [facility] & [place] 2 16:39:55 Morbid obesity 681527285 Active MUNIR ALISSAMICHAEL GARCIA RD, LD [address] [facility], [place], [address] , [place] [facility] & [place] 2 16:39:55 Goiter 1167755 Active MUNIR GARCIA RD, LD [address] [facility], [place], [address] , [place] [facility] & [place] 2 16:39:56 Elevated level of transamina se and lactic acid dehydrogen ase 153608268 Active MUNIR GARCIA RD, LD [address] [facility], [place], [address] , [place] [facility] & [place] 2 16:39:56 Nausea 373042229 Active MUNIR GARCIA RD, LD [address] [facility], [place], [address] , [place] [facility] & [place] 2 16:39:56 Body mass index 30+ - obesity 962764442 Active MUNIR GARCIA RD, LD [address] [facility], [place], [address] , [place] [facility] & [place] 2 16:39:56 Irregular intermenst rual bleeding 86669309 Active MUNIR GARCIA RD, LD [address] [facility], [place], [address] , [place] [facility] & [place] 2 16:39:56 Anxiety 50417911 Active MUNIR GARCIA RD, LD [address] [facility], [place], [address] , [place] [facility] & [place] 2 16:39:56 Nodule of lung 025281606 Active MUNIR GARCIA RD, LD [address], [place], [address] , [place] [facility] & [place] 2 16:39:56 Carpal tunnel syndrome of right wrist 4188299796907 08 Active MUNIR MAXWELL [address], LD [address], [place], [address] , [place] [facility] & [place] 2 16:39:56 Abdominal pain 90302501 Active MUNIR MAXWELL RADHA RD, LD [address], [place], [address] , [place] [facility] & [place] 2 16:39:56 Pain in throat 241144468 Active 2021 TREMAYNE CRUZ [place], [place] - [facility] - [place] & [place] 2 17:14:51 Intentiona l weight loss 056933431 Active 2021 Angelito Estrada, MATTHEW, TAPE LIBRARIAN, SOLOIST DANCER-C [address] [facility], [place], [address] , [place] [facility] & [place] 2 11:51:56 Heartburn 28152236 Active 2022 Angelito Estrada, MATTHEW, TAPE LIBRARIAN, SOLOIST DANCER-C [address] [facility], [place], [address] , [place] [facility] - [facility] & [place] 3 13:15:59 Fatigue 71799663 Active 2023 Angelito Estrada DNP, TAPE LIBRARIAN, SOLOIST DANCER-C [address] [facility], [place], [address] , [place] [facility] & [place] 4 10:28:55 Problem Notes None recorded. Procedures Surgical History Date Name Laterality Status Provider Name and Address Organization Details Recorded Time 08/06 Laparoscopy completed Isabel Mccord [place] - [facility] - [place] & [place] 5 11:39:58 11/06 Information Systems Security Analyst Surgery completed Isabel Mccord [place] [facility] - [place] & [place] 5 11:29:41 10/06 Date of Last Pap Smear completed Ela Castillo [place] - [facility] - [place] & [place] 4 11:58:37 09/23 laparoscopic sleeve gastrectomy completed Ana Moya [place] - [facility] - [place] & [place] 2 13:07:03 07/15 esophagogastroduodenoscopy completed Karly da Roth[place] - [facility] - [place] & [place] 5 11:42:14 11/06 Carpal Tunnel Surgery completed Paige Ochoa [place] - [facility] - [place] & [place] 4 15:50:19 06/16 fine needle biopsy of thyroid completed Isabel [place] - [facility] - [place] & [place] 5 11:39:48 02/10 esophagogastroduodenoscopy completed Karly da [place] - [facility] - [place] & [place] 5 11:33:29 11/06 Knee Surgery completed Isabel [place] - [facility] - [place] & [place] 5 11:37:12 11/06 Ovarian Cystectomy completed Isabel [place] - [facility] - [place] & [place] 5 11:37:19 11/06 cholecystectomy completed Paige LEAVITT - [facility] - [place] & [place] 4 15:49:18 11/06 extraction of wisdom tooth completed Karly da [place]amer [place] - [facility] - [place] & [place] 5 11:37:41 11/06 tonsillectomy completed Paige Ochoa [place] - [facility] - [place] & [place] 4 15:49:26 11/06 ENT Surgery completed Isabel [place] - [facility] - [place] & [place] 5 11:29:41 Imaging Results None recorded. Procedure Notes None recorded. Medical Equipment None Reported. Allergies Allergen ID Allergen Name Allergen Category Reaction Reaction Severity Criticality Documentation Date Start Date Code Code System Note Provider Name and Address Organization Details Recorded Time 13692 amoxicill in medicatio n nausea rash vomiting Not available Not available Not available low 07/21/2022 723 RxNorm Hever ates cepha lospo rins Isabel Mccord null, [place] - [facility] & [place] 5 11:58:46 22133 phentermi ne medicatio n tachycard ia moderate Not available 07/21/[address], LD [address], [place], [address] , [facility] - [facility] & [place] 2 16:40:31 669613 Non-stero idal anti-infl ammatory agent (product) medicatio n other Not available low 08/29/2024 56675 005 SNOMED Cant take with recen t gastr ic sleev e surge ry Isabel Mccord null, [place] - [facility] & [place] 5 11:58:59 56831 Derm-Appl y medicatio n Not available Not available low 08/31/2022 21274 UNK derma cortez Isabel Mccord null, [place] - [facility] & [place] 5 11:59:05 82765 hydrocodo ne Not available rash severe high 08/31/2022 5489 RxNorm Isabel Mccord null, [place] - [facility] & [place] 5 11:58:49 Medications Name Sig Start Date [...] Updated DateTime 04/04/2025 165.1 cm 24.5 kg/m2 32988.08 g Bernie Medina [facility] & [place] 04/04/2025 09:11:54 Social History Question Answer Notes LastModified by Organizat ion Details LastModified Time Tobacco Smoking Status [facility] [place] 07/21/2022 13:33:48 Do You Have An Advance Directive? No [email or web address] Information not available 09/27/2022 Are You Blind Or Do You Have Difficulty Seeing? Yes [email or web address] Information not available 09/27/2022 Are You Deaf [...] use any illicit or recreational drugs? No [email or web address] Information not available 07/21/2022 Do you or have you ever used any other forms of tobacco or nicotine? No [email or web address] Information not available 03/28/2023 What is your level of alcohol consumption? None [email or web address] Information not available 07/21/2022 Do you or have you ever used smokeless tobacco? Never used smokeless tobacco Information not available 01/21/2025 What is your exercise level? Moderate Information not available 09/27/2022 Mental Status Question Answer Note LastModified by Organization D etails LastModified Time Do you feel stressed (tense, restless, nervous, or anxious, or unable to sleep at night)? [id number] Information not available 09/27/2022 Family History Relationship Description Onset Age of this Age Resolved Age Notes LastModified by Organization Details LastModified Time Mother Diabetes mellitus [email or web address] Not available 02/06 14:55:01 Mother Essential hypertension [email or web address] Not available 14:55:01 Mother Obesity [email or web address] Not available 1 08:41:00 Mother Hyperlipidem ia [email or web address] Not available 02/06 14:55:01 Mother Disease of liver pt. added direct ly (01/09) [email or web address] Not available 01/09/2025 10:35:03 Mother Cirrhosis - non-alcoholi c [email or web address] Not available 02/06 14:55:01 Mother Anemia [email or web address] Not available 01/21/2025 11:57:09 Maternal Grandfather Diabetes mellitus [email or web address] Not available 02/06 14:55:01 Maternal Grandfather Essential hypertension [email or web address] Not available 14:55:01 Maternal Grandfather Coronary arterioscler osis [email or web address] Not available 02/06 14:55:01 Maternal Grandfather Obesity [email or web address] Not available 2023 08:41:17 Maternal Grandfather Hyperlipidem ia [email or web address] Not available 02/06 14:55:01 Maternal Grandfather Myocardial infarction [email or web address] Not available 01/21 11:56:03 Maternal Grandfather Sleep apnea Not available 02/06/2025 14:55:01 Father Essential hypertension [email or web address] Not available 14:55:01 Father Coronary arterioscler osis [email or web address] Not available 02/06 14:55:01 Father Obesity [email or web address] Not available 1 08:41:09 Father Hyperlipidem ia Not available 02/06 14:55:01 Father Heart disease [email or web address] Not available 2024 11:36:37 Father Diabetes mellitus [email or web address] Not available 02/06 14:55:01 Father Myocardial infarction [email or web address] Not available 01/21 11:55:23 Father Kidney disease [email or web address] Not available 2024 11:55:46 Maternal Grandmother Essential hypertension [email or web address] Not available 14:55:01 Maternal Grandmother Obesity [email or web address] Not available 2023 08:41:13 Maternal Grandmother Malignant neoplastic disease [email or web address] Not available 02/06 14:55:01 Paternal Grandmother Obesity [...] Recorded Time Influenza, split virus, quadrivalent, preservative completed Ela [place] null, [place] [facility] & [place] 09/27/2023 08:17:50 COVID-19, mRNA, LNP-S, PF, 100 mcg/0.5mL dose or 50 mcg/0.25mL dose 1 completed Ela Jonathan null, [place] [facility] & [place] 09/27/2023 08:17:41 COVID-19, mRNA, LNP-S, PF, 100 mcg/0.5mL dose or 50 mcg/0.25mL dose 1 completed Ela Jonathan null, [place] [facility] - [place] & [place] 09/27/2023 08:17:41 MMR 5 completed Ela [place] & [place] 04/03/2024 10:18:10 MMR 5 completed Ela [place]ning null[place] [facility] & [place] 04/03/2024 10:18:10 RSV, bivalent, protein subunit RSVpreF, diluent reconstituted, 0.5 mL, PF 4 completed Ela [place] null[place] [facility] & [place] 04/03/2024 10:18:10 Tdap 3 completed Ela [place] [facility] & [place] 04/03/2024 10:18:10 varicella 5 completed Ela Jonathan null[place] [facility] & [place] 04/03/2024 10:18:10 Hep B, adult 5 completed Ela [place] & [place] 04/03/2024 10:18:10 Influenza, split virus, quadrivalent, PF 3 completed Ela [place] [facility] & [place] 04/03/2024 10:18:10 Rho(D) - Unspecified formulation 7 completed Isabel [place] [facility] & [place] 01/21/2025 11:54:59 Rho(D) - Unspecified formulation 3 completed Isabel [place] [facility] & [place] 01/21/2025 11:59:29 Past Encounters Encounter ID Performer Location Encounter Start Date Encounter Closed Date Diagnosis/Indication Diagnosis SNOMED-CT Code Diagnosis ICD10 Code Diagnosis Note [id number] Angelito Estrada, MATTHEW, TAPE LIBRARIAN, SOLOIST DANCER-C [facility] Bariatric s and Adv Surg [address] [place] [address] [address] [place] [address] 03/06/2025 13:51:19 03/06/2025 14:15:10 History of bariatric surgical procedure 861088672 Z98.84 Advised qid intake 50% protein 2754-1946 calories/d y less than 100 carbs/dyTo days visit was performed with AUDIO ONLY per patient request. Patient could not be seen utilizing audio/vide o or in person due to patient being in [place], [place], thus this visit was performed at patients request. Reason visit was not performed by video is due to patient not having access to smartphone . Provider (Angelito Estrada, MATTHEW, DUONG, SOLOIST DANCER-C) location was [facility] [address] [place] [address], [address] in [place], [place]. Patient location: work. Patient gave informed [...] social distancing . Intentiona l weight loss 345717801 R63.8 History of gastrectomy 059812129 Z90.3 Advised qid intake 50% protein 7972-1579 calories/d y less than 100 carbs/dy Follow-up with Repeat SILVIA in 3mth suggested .. At [facility] risk of nutritional deficit 115253781 Z91.89 Acquired hypothyroidism 556537229 E03.9 Obesity 912654467 E66.9 we will follow up in 1 month. I will increase to 7.5 mg weekly. Patient was given realistic expectatio ns regarding medication regimen. [id number] Angelito Estrada DNP, DUONG, SOLOIST DANCER-C [facility] Bariatric s and Adv Surg [address] [place] [address] [address] [place] [address] 04/04/2025 09:10:59 04/04/2025 10:05:21 History of bariatric surgical procedure 867266911 Z98.84 Advised qid intake 50% protein 4835-4103 calories/d y less than 100 carbs/dyTo days visit was performed with AUDIO ONLY per patient request. Patient could not be seen utilizing audio/vide o or in person due to patient being in [place], thus this visit was performed at patients request. Reason visit was not performed by video is due to patient not having access to smartphone . Provider (Angelito Estrada, MATTHEW, DUONG, SOLOIST DANCER-C) location was [facility] [address] [place] [address], [address] in [place]. Patient location: work. Patient gave informed [...] hand washing and social distancing . Obesity 179579101 E66.9 we will follow up in 1 month. I will increase to 10 mg weekly. Patient was given realistic expectatio ns regarding medication regimen. Nausea 513655899 R11.0 Health Concerns Section Related Observation LastModified by Organization Detai ls LastModified Time None Recorded Concern Status LastModified by Organization Details LastModified Time None Recorded Payers Encounter Date Sequence Insurance Name Policy Number Policy Wilson Covered Member ID Wilson Member ID Guarantor Name 04/04/2025 1 [place] [id number] Jeremiah Knowles Deal [id number] Pam Jaime Deal Notes Date Note [...] being a telehealth visit Angelito Estrada, DNP, TAPE LIBRARIAN, SOLOIST DANCER-C [address], [place], [address], [facility] [place] & [place] 04/04/2025 09:27:21 OBGyn Episode No OBEpisode recorded.
--- OUTSIDE RECORDS SUMMARY | 2025-04-29 10:26 | XMS_ITS | Encounter Summary ---
Author Organization Healthcare Address [address] [place] [address] Care Team Providers Care Shape Hand Name Role Phone Nadia Goodson MD Primary Care Provider [phone] Encounter Details Date Type Department Care Team (Late st Contact Info) Description 04/28/2025 [facility] Obstetrics & Gynecology [address] [place] [address] Tres Ybarra MD [address] [place] [address] Social History Tobacco Use Types Packs/Day Years Used Date Smoking Tobacco: Never Smokeless Tobacco: Never Alcohol Use Standard Drinks/Week Comments No 0 (1 standard drink = 0.6 oz pur e alcohol) PHQ-2 Answer Date Recorded Patient Health Questionnaire-2 Score 0 04/08/2025 Spring Depression Scale Answer Date Recorded Spring Depression Scale Total 0 02/23/2024 The thought [...] encounter Miscellaneous Notes * Telephone Encounter - Montse Alvarez - 04/28/2025 11:29 AM EDT 04/28/25 hcg progestrone- preferred to wait until she gets her labs to make an IPV appt ZMT documented in this encounter Plan of Treatment Upcoming Encounters Date Type Department Care Team (Late st Contact Info) Description 02/09/2026 8:45 AM EDT Procedure Visit Obstetrics & Gynecology [address] [place] [address] Tres Ybarra MD [address] [place] [address] documented as of this encounter [...] documented as of this encounter Care Teams Shape Hand Relationship Specialty Start Date End Date Nadia Goodson MD [address] [place] [address] PCP - General 01/17/23 documented as of this encounter
--- OUTSIDE RECORDS SUMMARY | 2025-04-29 10:26 | XMS_ITS | Encounter Summary ---
Author Organization [employer] Address [address] [place] [address] Care Team Providers Care Calf Skinner Name Role Phone Unavailable Primary Care Provider Unavailabl e Encounter Details Date Type Department Care Team (Late st Contact Info) Description 09/26/2019 Transcribed Document [facility] Family Medicine [address] [place] [address] ProviderLe[facility] [place] [place] [address] Social History Tobacco Use Types Packs/Day Years Used Date Smoking Tobacco: Never Assessed Comments Unknown Sex and Gender Information Value Date Recorded Sex Assigned at Not on file Legal Sex Female 6:09 PM CDT Gender Identity Not on file Sexual Orientation Not on file documented as of this encounter Miscellaneous Notes * Cerner Conversion Note - Historical ProviderMD - 09/26/2019 11:00 AM WOOL TAMPER Urine Culture Collected: 09/24/2019 Complete Body site: Specimen Type: U CleanCatch 09/26/2019 09:56 09/26/2019 11:00 (KINGSLEY MEJIA PA-C) Reviewed by Provider, No further action required 3 or more organisms suggesting contamination documented in this encounter Plan of Treatment Not on file documented as of this encounter Visit Diagnoses Not on filedocumented in this encounter
--- OUTSIDE RECORDS SUMMARY | 2025-04-29 10:26 | XMS_ITS | Encounter Summary ---
Author Organization [employer] i[employer] Address [address] [place] [address] Care Team Providers Care Rail Gang Supervisor Name Role Phone Unavailable Primary Care Provider Unavailabl e Encounter Details Date Type Department Care Team (Late st Contact Info) Description 11/25/2020 Transcribed Document [facility] Family Medicine [address] [place] [address] ProviderLeón MD [address] [place] [address] Social History Tobacco Use Types Packs/Day Years Used Date Smoking Tobacco: Never Assessed Comments Unknown Sex and Gender Information Value Date Recorded Sex Assigned at Not on file Legal Sex Female 6:09 PM CDT Gender Identity Not on file Sexual Orientation Not on file documented as of this encounter Miscellaneous Notes * Cerner Conversion Note - León ProviderMD - 11/25/2020 4:12 PM PRACTICE DIRECTOR [facility] [place] [address] PAM FENG :1995 Visit Time:11/25/2020 Your [...] range between ( 0.0 and 7.0 ) Grimes #: 0.55 K/uL -- Normal range between ( 0.16 and 1.00 ) Eos #: 0.12 x10(3)/uL -- Normal range between ( 0.00 and 0.80 ) Grimes %: 6.1 % -- Normal range between [...] instructions at home: Managing pain ??? Take kwkg-arv-ailogfl and prescription medicines only as told by [...] Reviewed: 02/02/2018 Elsevier Patient Education ?? 2020 ArriveBefore. Emergency Awareness and Preventative Care STROKE is [...] Assistance with quitting is available by contacting 4-452-IDTPBioNovaNOW. This is a free resource providing counseling, [...] was given the opportunity to ask questions. Patient/[employer] Name: Patient/[employer] Signature: Relationship to Patient: Clinician/Hospital [employer] Signature: Please Provide a Telephone Number Where You Can Be Reached: Is it Permissible To Leave a Message? Date: Electronically signed by Jimena [facility] Conversion Timber Framer Helper Kimberly at 02/19/2023 9:48 AM CDT documented in this encounter Plan of Treatment Not on file documented as of this encounter Visit Diagnoses Not on filedocumented in this encounter
--- OUTSIDE RECORDS SUMMARY | 2025-04-29 10:26 | XMS_ITS | Encounter Summary ---
Author Organization Healthcare Address [address] [id number] Care Team Providers Care Houseperson Name Role Phone Pcp, No Primary Care Provider Nadia Todd MD Primary Care Provider [phone] Pcp, No Primary Care Provider Nadia Todd MD Primary Care Provider [phone] Encounter Details Date Type Department Care Team ([facility] Contact Info) Description 11/05/2019 [facility] OT[facility] Historical OTTR [address] [place] [address] Marla Sin, RN [facility] [id number] [address] [place] [address] Social History Tobacco Use Types Packs/Day Years [...] EDT Procedure Visit Obstetrics & Gynecology [address] [place] [address] Tres Ybarra MD [address] [place] [address] documented as of this encounter Visit Diagnoses Not on filedocumented in this encounter Care Teams Houseperson Relationship Specialty Start Date End Date Pcp, No [address] [place] [address] PCP - General 08/07/21 08/08/21 Nadia Goodson MD [address] [place], [place] [id number] PCP - General 08/09/21 08/09/21 Pcp, No [address] [place] [address] PCP - General Family Medicine 07/08/22 01/16/23 Nadia Goodson MD [address] [place] [address] PCP - General 01/17/23 documented as of this encounter
--- OUTSIDE RECORDS SUMMARY | 2025-04-29 10:26 | XMS_ITS | Encounter Summary ---
Author Organization [employer] i[employer] Address [address] [place] [address] Care Team Providers Care Radio Broadcaster Name Role Phone Unavailable Primary Care Provider Unavailabl e Encounter Details Date Type Department Care Team (Late st Contact Info) Description 11/25/2020 Transcribed Document [facility] [place] Medicine [address] [place] [address] ProviderLeón MD [address], [place] [address] Social History Tobacco Use Types Packs/Day Years Used Date Smoking Tobacco: Never Assessed Comments Unknown Sex and Gender Information Value Date Recorded Sex Assigned at Not on file Legal Sex Female 6:09 PM CDT Gender Identity Not on file Sexual Orientation Not on file documented as of this encounter Miscellaneous Notes * Cerner Conversion Note - Historical ProviderMD - 11/25/2020 10:52 AM MAMMOGRAPHER [place] Suicide Severity Rating Scale (C-SSRS) Entered On: 11/25/2020 14:40 EST Performed On: 11/25/2020 14:40 EST by LALI SEAY RN [place] Suicide Severity Rating Scale (C-SSRS) CSSRS Past [...]
--- OUTSIDE RECORDS SUMMARY | 2025-04-29 10:26 | XMS_ITS | Referral Summary ---
Author Organization [facility] In iatives Address [address] [place] [address] Care Team Providers Care Assistant Professor Of Music Name Role Phone Unavailable Primary Care Provider [...]
--- OUTSIDE RECORDS SUMMARY | 2025-04-29 10:26 | XMS_ITS | Encounter Summary ---
Author Organization Healthcare Address [address] [place] [address] Care Team Providers Care Cord Splicer Name Role Phone Nadia Goodson MD Primary Care Provider [phone] Encounter Details Date Type Department Care Team (Latest Contact Info) Description 04/28/2025 Travel Social History Tobacco Use Types Packs/Day Years Used Date Smoking Tobacco: Never Smokeless Tobacco: Never Alcohol Use Standard Drinks/Week Comments No 0 (1 standard drink = 0.6 oz pur e alcohol) PHQ-2 Answer Date Recorded Patient Health Questionnaire-2 Score 0 04/08/2025 Stanford Depression Scale Answer Date Recorded Stanford Depression Scale Total 0 02/23/2024 The thought [...] EDT Procedure Visit Obstetrics & Gynecology [address] [place] [address] Tres Ybarra MD [address] [place] [address] documented as of this encounter [...] documented as of this encounter Care Teams Cord Splicer Relationship Specialty Start Date End Date Nadia Goodson MD [address] [place] [address] PCP - General 01/17/23 documented as of this encounter
--- OUTSIDE RECORDS SUMMARY | 2025-04-29 10:26 | XMS_ITS | Clinical Summary ---
Author Organization [employer] Address [address] [place] [address] Care Team Providers Care Data Librarian Name Role Phone Unavailable Primary Care Provider [...]
[2025-04-29 12:01] LABS: HCG,Quantitative 26 mIU/ml (0-5.42)
[2025-04-30 08:28] LABS: Progesterone 7.8 ng/mL (.)
== END 2025-04-29 23:59 | disposition home or self-care (01) ==
LOC: LAB 10:23
PROVIDERS: PCP Family Medicine; Visit Provider Obstetrics & Gynecology
DX: Z32.01 Encounter for pregnancy test, result positive (principal)
CPT/HCPCS: 36415; 84144; 84702

== ENCOUNTER 2025-05-02 11:05 | Outpatient (CLI) | payer BC, SELFPAY ==
--- OUTSIDE RECORDS SUMMARY | 2025-04-08 14:00 | XMS_ITS | Encounter Summary ---
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 Encounter Details Date Type Department Care Team (Late st Contact Info) Description 04/08/2025 2:00 PM EDT Office Visit Obstetrics & Gynecology [address] [place] [address] Tres Ybarra MD [address] [place] [address] Irregular menstruation, unspecified (Primary Dx); Encounter for preconception consultation Social History Tobacco Use Types Packs/Day Years Used Date Smoking Tobacco: Never Smokeless Tobacco: Never Tobacco Cessation:Counseling Given: Not Answered Alcohol Use Standard Drinks/Week Comments No 0 (1 standard drink = 0.6 oz pur e alcohol) PHQ-2 Answer Date Recorded Patient Health Questionnaire-2 Score 0 04/08/2025 [place] Depression Scale Answer Date Recorded [place] Depression Scale Total 0 02/23/2024 The thought [...] 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 The following chart [...] nursing note reviewed. Exam conducted with a ash kier boiler present. BUFFER OPERATOR TVUS WNL with right 16 mm dominant follicle Assessment Assessment & Plan Irregular menstruation, unspecified Orders: US Pelvis Transvaginal; Future Encounter for preconception consultation Discussed BUFFER OPERATOR TVUS findings - reassurance Check D22 PROG [...] Care Team (Late st Contact Info) Description 05/08/2025 10:00 AM EDT Clinical Support Obstetrics & Gynecology [facility] [place] [address] 02/09/2026 8:45 AM EDT Procedure Visit Obstetrics & Gynecology [address] [place] [address] Tres Ybarra MD [address] [place] [address] documented as of this encounter Results * US Pelvis Transvaginal (04/08/2025 2:12 PM EDT) Anatomical Region Laterality Modality Pelvis Ultrasound 04/08/2025 2:20 PM EDT Impressions 04/08/2025 2:24 PM EDT The OB Ultrasound you requested has been resulted. Please navigate to the Imaging tab in [employer] for review. This message has been generated by the interface. Narrative Procedure Note Tres Ybarra MD - 04/08/2025 IMPRESSION: The OB Ultrasound you requested has been resulted. Please navigate to theImaging tab in [employer] for review. This message has been generated [...] documented as of this encounter Care Teams Strategic Manager Relationship Specialty Start Date End Date Nadia Goodson MD [address] [place] [address] PCP - General 01/17/23 documented as of this encounter
--- OUTSIDE RECORDS SUMMARY | 2025-04-08 14:15 | XMS_ITS | Encounter Summary ---
Author Organization Healthcare Address [address] [place] [address] Care Team Providers Care Legal Document Assistant Name Role Phone Nadia Godoson MD Primary Care Provider [phone] Encounter Details Date Type Department Care Team (Latest Contact Info) Description 04/08/2025 2:15 PM EDT Ancillary Procedure Obstetrics & Gynecology [address] [place] [address] Irregular menstruation, unspecified Social History Tobacco Use Types Packs/Day Years Used Date Smoking Tobacco: Never Smokeless Tobacco: Never Alcohol Use Standard Drinks/Week Comments No 0 (1 standard drink = 0.6 oz pur e alcohol) PHQ-2 Answer Date Recorded Patient Health Questionnaire-2 Score 0 04/08/2025 [place] Depression Scale Answer Date Recorded [place] Depression Scale Total 0 02/23/2024 The thought [...] AM EDT Clinical Support Obstetrics & Gynecology [address] [place] [address] 02/09/2026 8:45 AM EDT Procedure Visit Obstetrics & Gynecology [address] [place] [address] Tres Ybarra MD [address] [place] [address] documented as of this encounter [...] Please navigate to the Imaging tab in [employer]ly for review. This message has been generated by the interface. Narrative Procedure Note Tres Ybarra MD - 04/08/2025 IMPRESSION: The OB Ultrasound you requested has been resulted. Please navigate to theImaging tab in [employer]ly for review. This message has been generated [...] documented as of this encounter Care Teams Legal Document Assistant Relationship Specialty Start Date End Date Nadia Goodson MD [address] [place] [address] PCP - General 01/17/23 documented as of this encounter
--- OUTSIDE RECORDS SUMMARY | 2025-04-17 10:00 | XMS_ITS | Encounter Summary ---
Author Organization Healthcare Address [address] [place] [address] Care Team Providers Care Cone Treater Name Role Phone Nadia Goodson MD Primary Care Provider [phone] Reason for Visit * Reason Comments Labs Only Pt here for labs, on e stick, tolerated well. Encounter Details Date Type Department Care Team (Latest Contact Info) Description 04/17/2025 10:00 AM EDT Clinical Support Obstetrics & Gynecology [facility] [place] [address] Irregular menstruation, unspecified (Primary Dx) Social History Tobacco Use Types Packs/Day Years Used Date Smoking Tobacco: Never Smokeless Tobacco: Never Alcohol Use Standard Drinks/Week Comments No 0 (1 standard drink = 0.6 oz pur e alcohol) PHQ-2 Answer Date Recorded Patient Health Questionnaire-2 Score 0 04/08/2025 [place] Depression Scale Answer Date Recorded [place] Depression Scale Total 0 02/23/2024 The thought [...] on file documented as of this encounter Miscellaneous Notes * Clinician Note - Kayla Marti RN - 04/17/2025 10:00 AM EDT Pt here for labs, one stick, tolerated well. documented in this encounter Plan of Treatment Upcoming Encounters Date Type Department Care Team (Late st Contact Info) Description 05/08/2025 10:00 AM EDT Clinical Support Obstetrics & Gynecology [address] [place] [address] 02/09/2026 8:45 AM EDT Procedure Visit Obstetrics & Gynecology [address] [place] [address] Tres Ybarra MD [address] [place] [address] documented as of this encounter Procedures Procedure Name Priority Date/Time Associated Diagnosis Comments PROGESTERONE III Routine 04/17/2025 10:4 0 AM EDT Irregular menstruation, unspecified TSH Routine 04/17/2025 10:40 AM EDT Irregular menstruation, unspecified FREE T4, PLASMA Routine 04/17/2025 10:40 AM EDT Irregular menstruation, unspecified documented in this encounter Results * Progesterone (04/17/2025 10:40 AM EDT) Progesterone III 11.6 Reference Range not established ng/mL 04/17/2025 8:23 PM EDT [facility] Blood Venous blood specimen / Unknown Venipuncture / Unknown 04/17/2025 10:40 AM EDT 04/17/2025 5:56 PM EDT Narrative [facility] - 04/17/2025 8:23 PM EDT Menstrual Cycle Phase Reference Intervals: Females, 18 Y and up (ng/mL) Follicular <= 0.33 Ovulation <= 2.35 Luteal 0.5-21 Post-Menopausal <0.2 reference Intervals (ng/mL): 1st Trimester 11 - 45 2nd Trimester 25 - 84 3rd Trimester 58 - 214 Result Mary Ybarra MD LAB BLOOD ORDERABLES Final Resu lt [facility] [address] [place] [address] * Thyroid Stimulating Hormone, Plasma (04/17/2025 10:40 AM EDT) Thyroid Stimulating Hormone, Plasma 2.90 0.40 - 4.20 uIU/mL 04/17/2025 6:39 PM EDT [facility] Blood Venous blood specimen / Unknown Venipuncture / Unknown 04/17/2025 10:40 AM EDT 04/17/2025 5:57 PM EDT Narrative [facility] - 04/17/2025 6:39 PM EDT Trimester Specific Ranges TSH ( IU/mL) 1st Trimester 0.1 - 3.0 2nd Trimester 0.19 - 4.06 3rd Trimester 0.3 - 3.7 us Tres Ybarra MD LAB BLOOD ORDERABLES Final Resu lt Performing Organization Address [facility]/ZIP Co de Phone Number [facility] [address] [place] [address] * Free T4, Plasma (04/17/2025 10:40 AM EDT) Free T4, Plasma 1.2 0.8 - 1.7 ng/dL 04/17/2025 6:39 PM EDT [facility] Blood Venous blood specimen / Unknown Venipuncture / Unknown 04/17/2025 10:40 AM EDT 04/17/2025 5:57 PM EDT Narrative [facility] - 04/17/2025 6:39 PM EDT Free T4 Trimester Specific Ranges 1st Trimester 0.9 - 1.50 ng/dL 2nd Trimester 0.7 - 1.40 ng/dL 3rd Trimester 0.7 - 1.24 ng/dL Result Mary Ybarra MD LAB BLOOD ORDERABLES Final Resu lt Performing Organization Address City/[facility]/ZIP Co [place] [address] documented in this encounter Visit Diagnoses Diagnosis Irregular menstruation, unspecified- Primary documented in this encounter Additional Health Concerns Assessment Noted Time PHQ-9 Depression Total Score: 0 02/07/20 25 8:10 AM EDT A fall risk assessment has been complete d for the patient 04/08/2025 2:16 PM EDT A Body Mass Index follow-up plan has been documented for the patient 04/17/2025 11:54 AM EDT documented as of this encounter Care Teams Cone Treater Relationship Specialty Start Date End Date Nadia Goodson MD [address] [place] [address] PCP - General 01/17/23 documented as of this encounter
--- OUTSIDE RECORDS SUMMARY | 2025-04-28 13:45 | XMS_ITS | Encounter Summary ---
Author Organization Healthcare Address [address] [place] [address] Care Team Providers Care Sifter And Miller Name Role Phone Nadia Goodson MD Primary Care Provider [phone] Reason for Visit * Reason Comments Labs Here for labs. Encounter Details Date Type Department Care Team (Latest Contact Info) Description 04/28/2025 1:45 PM EDT Clinical Support Obstetrics & Gynecology [facility] [place] [address] Irregular menstruation, unspecified (Primary Dx); Positive urine test Social History Tobacco Use Types Packs/Day Years Used Date Smoking Tobacco: Never Smokeless Tobacco: Never Alcohol Use Standard Drinks/Week Comments No 0 (1 standard drink = 0.6 oz pur e alcohol) PHQ-2 Answer Date Recorded Patient Health Questionnaire-2 Score 0 04/08/2025 [place] Depression Scale Answer Date Recorded [place] Depression Scale Total 0 02/23/2024 The thought [...] encounter Miscellaneous Notes * Clinician Note - Shanta Alvarez - 04/28/2025 1:45 PM EDT Pt came to the lab for blood work. Pt tolerated well. documented in this encounter Plan of Treatment Upcoming Encounters Date Type Department Care Team (Late st Contact Info) Description 05/08/2025 10:00 AM EDT Clinical Support Obstetrics & Gynecology [address] [place] [address] 02/09/2026 8:45 AM EDT Procedure Visit Obstetrics & Gynecology [address] [place] [address] Tres Ybarra MD [address] [place] [address] documented as of this encounter Procedures Procedure Name Priority Date/Time Associated Diagnosis Comments PROGESTERONE III Routine 04/28/2025 2:12 PM EDT Irregular menstruation, unspecified Positive urine test HCG, QUANTITATIVE Routine 04/28/2025 2:1 2 PM EDT Irregular menstruation, unspecified Positive urine test documented in this encounter Results * Progesterone (04/28/2025 2:12 PM EDT) Progesterone III 12.7 Reference Range not established ng/mL 04/28/2025 6:28 PM EDT [facility] Blood Venous blood specimen / Unknown Venipuncture / Unknown 04/28/2025 2:12 PM EDT 04/28/2025 5:50 PM EDT Narrative [facility] - 04/28/2025 6:28 PM EDT Menstrual Cycle Phase Reference Intervals: Females, 18 Y and up (ng/mL) Follicular <= 0.33 Ovulation <= 2.35 Luteal 0.5-21 Post-Menopausal <0.2 reference Intervals (ng/mL): 1st Trimester 11 - 45 2nd Trimester 25 - 84 3rd Trimester 58 - 214 us Tres Ybarra MD LAB BLOOD ORDERABLES Final Resu lt [facility] [address] [place] [address] * (ABNORMAL) hCG, Total Beta, Quantitative, Plasma (04/28/2025 2:12 PM EDT) hCG, Total Beta 33(H) <5 mIU/mL 6:37 PM EDT [facility] Blood Venous blood specimen / Unknown Venipuncture / Unknown 04/28/2025 2:12 PM EDT 04/28/2025 5:50 PM EDT Narrative [facility] - 04/28/2025 6:37 PM EDT Patients: Normal Range Premenopausal Female < 5 mIU/mL Male < 3 mIU/mL Postmenopausal Female < 8 mIU/mL The [employer] Ele[employer] hCG+beta assay is standardized to the 4th IS for Chorionic Gonadotropin. The combination of the specific monoclonal antibodies used in this assay recognizes the holo-hormone, nicked forms of hCG, the Beta-core Fragment and the free beta-subunit. Elevated hCG concentrations not associated with are found in patients with gestational trophoblastic disease and choriocarcinoma as well as germ cell, ovarian, bladder, pancreas, stomach, lung and liver tumors. Performed by the [employer] electrochemiluminescent immunoassay which is traceable to the 4th International Standard for hCG (NIBSC 75/589). Results obtained with different test methods or kits cannot be used interchangeably. Tres Ybarra MD LAB BLOOD ORDERABLES Final Resu lt Performing Organization Address City/State/[facility] Co de Phone Number [facility] [address] [place] [address] documented in this encounter Visit Diagnoses Diagnosis Irregular menstruation, unspecified- Primary Positive urine test documented in this encounter Additional Health Concerns Assessment Noted Time PHQ-9 Depression Total Score: 0 02/07/20 25 8:10 AM EDT A fall risk assessment has been complete d for the patient 04/08/2025 2:16 PM EDT A Body Mass Index follow-up plan has been documented for the patient 04/28/2025 2:30 PM EDT documented as of this encounter Care Teams Sifter And Miller Relationship Specialty Start Date End Date Nadia Goodson MD [address] [place] [id number] PCP - General 01/17/23 documented as of this encounter
--- OUTSIDE RECORDS SUMMARY | 2025-04-30 10:00 | XMS_ITS | Encounter Summary ---
Author Organization Healthcare Address [address] [place] [address] Care Team Providers Care Trustee Of Estate Name Role Phone Nadia Goodson MD Primary Care Provider [phone] Reason for Visit * Reason Comments Labs Here for labs. Encounter Details Date Type Department Care Team (Latest Contact Info) Description 04/30/2025 10:00 AM EDT Clinical Support Obstetrics & Gynecology [facility] [place] [address] Positive urine test (Primary Dx); Irregular menstruation, unspecified Social History Tobacco Use Types Packs/Day Years Used Date Smoking Tobacco: Never Smokeless Tobacco: Never Alcohol Use Standard Drinks/Week Comments No 0 (1 standard drink = 0.6 oz pur e alcohol) PHQ-2 Answer Date Recorded Patient Health Questionnaire-2 Score 0 04/08/2025 [place] Depression Scale Answer Date Recorded [place] Depression Scale Total 0 02/23/2024 The thought [...] * Clinician Note - Shanta Alvarez - 04/30/2025 10:00 AM EDT Pt came to the lab for blood work. Pt tolerated well. documented in this encounter Plan of Treatment Upcoming Encounters Date Type Department Care Team (Late st Contact Info) Description 05/08/2025 10:00 AM EDT Clinical Support Obstetrics & Gynecology [address] [place] [address] 02/09/2026 8:45 AM EDT Procedure Visit Obstetrics & Gynecology [address] [place] [address] Tres Ybarra MD [address] [place] [address] documented as of this encounter Procedures Procedure Name Priority Date/Time Associated Diagnosis Comments HCG, QUANTITATIVE Routine 04/30/2025 10: 10 AM EDT Irregular menstruation, unspecified documented in this encounter Results * (ABNORMAL) hCG, Total Beta, Quantitative, Plasma (04/30/2025 10:10 AM EDT) hCG, Total Beta 18.2(H) <5 mIU/mL 04/30/2025 1:38 PM EDT [facility] Blood Venous blood specimen / Unknown Venipuncture / Unknown 04/30/2025 10:10 AM EDT 04/30/2025 12:54 PM EDT Narrative [facility] - 04/30/2025 1:38 PM EDT Patients: Normal Range Premenopausal Female [...] to the 4th International Standard for hCG (NIBS 75/589). Results obtained with different test methods or kits cannot be used interchangeably. us Tres Ybarra MD LAB BLOOD ORDERABLES Final Resu lt [facility] [address] [place] [address] documented in this encounter Visit Diagnoses Diagnosis Positive urine test- Primary Irregular menstruation, unspecified documented in this encounter Additional Health Concerns Assessment Noted Time PHQ-9 Depression Total Score: 0 02/07/20 8:10 AM EDT A fall risk assessment has been complete d for the patient 04/08/2025 2:16 PM EDT A Body Mass Index follow-up plan has been documented for the patient 04/30/2025 4:03 PM EDT documented as of this encounter Care Teams Trustee Of Estate Relationship Specialty Start Date End Date Nadia Goodson MD [facility] [place] [address] PCP - General 01/17/23 documented as of this encounter
--- OUTSIDE RECORDS SUMMARY | 2025-05-02 11:08 | XMS_ITS | Encounter Summary ---
Author Organization [facility] Address [address] [place] [address] Care Team Providers Care Testing Lead Name Role Phone Nadia Goodson MD Primary Care Provider [phone] Encounter Details Date Type Department Care Team (Late st Contact Info) Description 04/18/2025 Results Follow-Up Obstetrics & Gynecology [address] [place] [address] Tres Ybarra MD [address] [place] [address] Social History Tobacco Use Types Packs/Day Years Used Date Smoking Tobacco: Never Smokeless Tobacco: Never Alcohol Use Standard Drinks/Week Comments No 0 (1 standard drink = 0.6 oz pur e alcohol) PHQ-2 Answer Date Recorded Patient Health Questionnaire-2 Score 0 04/08/2025 [place] Depression Scale Answer Date Recorded [place] Depression Scale Total 0 02/23/2024 The [...] EDT Clinical Support Obstetrics & Gynecology [address] [place] [address] 02/09/2026 8:45 AM EDT Procedure Visit Obstetrics & Gynecology [address] [place] [address] Tres Ybarra MD [address] [place] [address] documented as of this encounter [...] documented as of this encounter Care Teams Testing Lead Relationship Specialty Start Date End Date Nadia Goodson MD [address] [place] [address] PCP - General 01/17/23 documented as of this encounter
--- OUTSIDE RECORDS SUMMARY | 2025-05-02 11:08 | XMS_ITS | Encounter Summary ---
Author Organization [facility] Address [address] [facility] [place] [address] Care Team Providers Care Motor Assembly Supervisor Name Role Phone Nadia Goodson MD Primary Care Provider [phone] Encounter Details Date Type Department Care Team (Latest Contact Info) Description 04/30/2025 Travel Social History Tobacco Use Types Packs/Day Years Used Date Smoking Tobacco: Never Smokeless Tobacco: Never Alcohol Use Standard Drinks/Week Comments No 0 (1 standard drink = 0.6 oz pur e alcohol) PHQ-2 Answer Date Recorded Patient Health Questionnaire-2 Score 0 04/08/2025 [place] Depression Scale Answer Date Recorded [place] Depression Scale Total 0 02/23/2024 The thought [...] EDT Clinical Support Obstetrics & Gynecology [address] [place] [address] 02/09/2026 8:45 AM EDT Procedure Visit Obstetrics & Gynecology [address] [place] [address] Tres Ybarra MD [address] [place] [address] documented as of this encounter [...] documented as of this encounter Care Teams Motor Assembly Supervisor Relationship Specialty Start Date End Date Nadia Goodson MD [address] [place] [address] PCP - General 01/17/23 documented as of this encounter
--- OUTSIDE RECORDS SUMMARY | 2025-05-02 11:08 | XMS_ITS | Encounter Summary ---
Author Organization [employer] iatives Address [address] [place] [address] Care Team Providers Care Chef Head Name Role Phone Unavailable Primary Care Provider Unavailabl e Encounter Details Date Type Department Care Team (Late st Contact Info) Description 09/24/2019 Transcribed Document [facility] Family Medicine [address] [place] [address] ProviderLeón MD [facility] [place] [address] Social History Tobacco Use Types Packs/Day Years Used Date Smoking Tobacco: Never Assessed Comments Unknown Sex and Gender Information Value Date Recorded Sex Assigned at Not on file Legal Sex Female 6:09 PM CDT Gender Identity Not on file Sexual Orientation Not on file documented as of this encounter Miscellaneous Notes * Cerner Conversion Note - León ProviderMD - 09/24/2019 5:36 AM COMPONENT ENGINEER ED Assessment Entered On: 09/24/2019 6:25 EST Performed On: 09/24/2019 6:24 EST by RENETTA NIXON RN ED Quick Look Assessment Level of Consciousness : Alert, Awake RENETTA NIXON RN - 09/24/2019 6:24 EST ED General-Functional Assess Information Obtained From : Patient Communication Barrier : None Primary Language : Hong Konger Any Spiritual/Cultural Needs or Requests : No [...] RN) EENT Assessment EENT Assessment WDL : [facility] LEXX NIXONMOLLY - 09/24/2019 6:24 EST Cardiovascular ASMT, ED Cardiovascular Assessment WDL : [facility] HUSSAIN OZ JACKSON - 09/24/2019 6:24 EST Pulses Grid Radial Pulse, Left : 2+ normal Radial Pulse, Right : 2+ normal HUSSAIN, RENETTA - 09/24/2019 6:24 EST Respiratory Respiratory Assessment WDL : [facility] HUSSAINRENETTA RN - 09/24/2019 6:24 EST Breath Sounds Assessment Grid All Lobes Breath Sounds : Clear RENETTA NIXON RN - 09/24/2019 6:24 EST Gastrointestinal ED Gastrointestinal Assessment WDL : [facility] with exceptions Gastrointestinal Symptoms : Abdominal pain RENETTA NIXON RN - 09/24/2019 6:24 EST Genitourinary Assessment, ED Genitourinary Assessment WDL : [facility] with exceptions Genitourinary Symptoms : Vaginal bleeding RENETTA NIXON RN - 09/24/2019 6:24 EST Musculoskeletal Musculoskeletal Assessment WDL : [facility] RENETTA NIXON RN - 09/24/2019 6:24 EST Integumentary Assessment Integumentary Assessment WDL : [facility] RENETTA NIXON RN - 09/24/2019 6:24 EST Neurologic ASMT, ED Neurologic Assessment WDL : [facility] RENETTA NIXON RN - 09/24/2019 6:24 EST Electronically signed by [facility] Conversion Associate Director Career Services Cerner at 02/19/2023 9:43 AM CDT documented in this encounter Plan of Treatment Not on file documented as of this encounter Visit Diagnoses Not on filedocumented in this encounter
--- OUTSIDE RECORDS SUMMARY | 2025-05-02 11:08 | XMS_ITS | Clinical Summary ---
Author Organization [facility] Address [address] [place] [address] Care Team Providers Care Office Services Representative Name Role Phone Nadia Goodson MD Primary Care Provider [phone] Allergies Active Allergy Reactions Criticality Noted Date [...] Encounters Date Type Department Care Team Description 04/30/2025 10:00 AM EDT Clinical Support Obstetrics & Gynecology [address] [place] [place] [address] Positive urine test (Primary Dx); Irregular menstruation, unspecified 04/30/2025 Results Follow-Up Obstetrics & Gynecology [address] [place] [address] Tres Ybarra MD 04/30/2025 Travel 04/29/2025 Results Follow-Up Obstetrics & Gynecology [address] [place] [address] Tres Ybarra MD 04/28/2025 1:45 PM EDT Clinical Support Obstetrics & Gynecology [address] [place] [address] Irregular menstruation, unspecified (Primary Dx); Positive urine test 04/28/2025 Travel 04/28/2025 Telephone Obstetrics & Gynecology [address] [place] [address] Tres Ybarra MD 04/18/2025 Results Follow-Up Obstetrics & Gynecology [address] [place] [address] Tres Ybarra MD 04/17/2025 10:00 AM EDT Clinical Support Obstetrics & Gynecology [address] [place] [address] Irregular menstruation, unspecified (Primary Dx) 04/17/2025 Travel 04/14/2025 Telephone Obstetrics & Gynecology [address] [place] [address] Tres Ybarra MD HCN - Patient Message 04/08/2025 2:15 PM EDT Ancillary Procedure Obstetrics & Gynecology [address] [place] [address] Irregular menstruation, unspecified 04/08/2025 2:00 PM EDT Office Visit Obstetrics & Gynecology [address] [place] [address] Tres Ybarra MD Irregular menstruation, unspecified (Primary Dx); Encounter for preconception consultation 04/08/2025 Travel 03/27/2025 Telephone Obstetrics & Gynecology [address] [place] [address] Tres Ybarra MD 02/13/2025 Results Follow-Up Obstetrics & Gynecology [address] [place] [address] Tres Ybarra MD 02/06/2025 8:00 AM EDT Office Visit Obstetrics & Gynecology [address] [place] [address] Tres Ybarra MD Encounter for annual routine [...] Recorded Patient Health Questionnaire-2 Score 0 04/08/2025 [place] Depression Scale Answer Date Recorded [place] Depression Scale Total 0 02/23/2024 The thought [...] Support Obstetrics & Gynecology [address] [place] [address] 02/09/2026 8:45 AM EDT Procedure Visit Obstetrics & Gynecology [address] [address] Tres Ybarra MD [address] [place] [address] Health Maintenance Due Date Last Done Comments [facility]-/Child/Adol SDOH Screenings 1993 HPV Vaccines (1 - 3-dose series) 2008 [facility]- SDOH Screenings 2011 [facility]-Adult SDOH Screenings 2011 [facility]-Hepatitis B Vaccines (1 of 3 - 19+ 3-dose series) 2012 [facility]-Varicella Vaccines (2 of 2 - 13+ 2-dose series) 05/27/2015 04/29/2015 [id number] Vaccine (3 - Moderna risk series) 01/06/2021 12/09/2020, 11/11/2020 [facility]-Influenza Vaccine (Season Ended) 2025 07/17/2023 [facility]-Pap Smear 10/14/2025 10/14/2022, 08/08, 05/15/2014 [facility]-Depression Screening 04/08/2026 025, 02/06/2025, 02/23/2024 [facility]-Cervical Cancer Screening 02/06/2030 [facility]-HPV/Cotest 02/06/2030 02/06/2025, 2, 09/04/2014, Additional history exists [facility]-DTaP,Tdap,and Td Vaccines (2 - Td or Tdap) 11/03/2033 11/03/2023 [facility]-Zoster Vaccines (1 of 2) 2043 04/29/2015 [facility]-HIV Screening Completed 05/29/2023, 07/18/2017 [facility]-Hepatitis C Screening Completed 05/29/2023, 10/2017 [facility]-RSV Vaccine: 60+ Years or Discontinued 12/04/2023 [facility]-Obesity Intervention Completed 025, 04/28/2025, 04/17/2025, Additional history exists [facility]-HIB Vaccines Aged Out [...] 10: 10 AM EDT Irregular menstruation, unspecified PROGESTERONE III Routine 04/28/2025 2:12 PM EDT [...] Recently Relevant to Health Maintenance Results * (ABNORMAL) hCG, Total Beta, Quantitative, Plasma (04/30/2025 10:10 AM EDT) Only the most recent of2 resultswithin the time period is included. hCG, Total Beta 18.2(H) <5 mIU/mL 04/30/2025 1:38 PM EDT [facility] Blood Venous blood specimen / Unknown Venipuncture / Unknown 04/30/2025 10:10 AM EDT 04/30/2025 12:54 PM EDT Narrative [facility] - 04/30/2025 1:38 PM EDT Patients: [...] Resu lt Performing Organization Address [facility] [[email or web address]] Co de Phone Number [facility] [address] [place] [address] * Progesterone (04/28/2025 2:12 PM EDT) Only the most recent of2 resultswithin the time period is included. Progesterone III 12.7 Reference Range not established ng/mL 04/28/2025 6:28 PM EDT [facility] Blood Venous blood specimen / Unknown Venipuncture / Unknown 04/28/2025 2:12 PM EDT 04/28/2025 5:50 PM EDT Narrative [facility] - 04/28/2025 6:28 PM EDT Menstrual Cycle Phase Reference Intervals: Females, 18 Y and up (ng/mL) Follicular <= 0.33 Ovulation <= 2.35 Luteal 0.5-21 Post-Menopausal <0.2 reference Intervals (ng/mL): 1st Trimester 11 - 45 2nd Trimester 25 - 84 3rd Trimester 58 - 214 Result Mary Ybarra MD LAB BLOOD ORDERABLES Final Resu lt Performing Organization Address [facility] [place] [address] * Thyroid Stimulating Hormone, Plasma (04/17/2025 10:40 AM EDT) Thyroid Stimulating Hormone, Plasma 2.90 0.40 - 4.20 uIU/mL 04/17/2025 6:39 PM EDT [facility] Blood Venous blood specimen / Unknown Venipuncture / Unknown 04/17/2025 10:40 AM EDT 04/17/2025 5:57 PM EDT Narrative [facility] - 04/17/2025 6:39 PM EDT Trimester Specific Ranges TSH ( IU/mL) 1st Trimester 0.1 - 3.0 2nd Trimester 0.19 - 4.06 3rd Trimester 0.3 - 3.7 Result Mary Ybarra MD LAB BLOOD ORDERABLES Final Resu lt Performing Organization Address [facility] [[email or web address]] Co de Phone Number [facility] [address] [place] [address] * Free T4, Plasma (04/17/2025 10:40 AM EDT) Free T4, Plasma 1.2 0.8 - 1.7 ng/dL 04/17/2025 6:39 PM EDT [facility] Blood Venous blood specimen / Unknown Venipuncture / Unknown 04/17/2025 10:40 AM EDT 04/17/2025 5:57 PM EDT Narrative [facility] - 04/17/2025 6:39 PM EDT Free T4 Trimester Specific Ranges 1st Trimester 0.9 - 1.50 ng/dL 2nd Trimester 0.7 - 1.40 ng/dL 3rd Trimester 0.7 - 1.24 ng/dL Result Mary Ybarra MD LAB BLOOD ORDERABLES Final Resu lt Performing Organization Address [facility] [[email or web address]] [place] [address] * US Pelvis Transvaginal (04/08/2025 2:12 PM EDT) Anatomical Region Laterality Modality Pelvis Ultrasound 04/08/2025 2:20 PM EDT Impressions 04/08/2025 2:24 PM EDT The OB Ultrasound you requested has been resulted. Please navigate to the Imaging tab in ZoomInfo for review. This message has been generated by the interface. Narrative Procedure Note Tres Ybarra MD - 04/08/2025 IMPRESSION: The OB Ultrasound you requested has been resulted. Please navigate to theImaging tab in ZoomInfo for review. This message has been generated by theinterface. Result Mary Ybarra MD IMG US PROCEDURES Final Result * Referred ThinPrep Pap and HPV (SO) (02/06/2025 8:23 AM EDT) Pap, Source Cx/Vagina 02/13/2025 12:50 PM EDT [facility] ([facility]) EER Referred ThinPrep Pap and HPV See Note 02/13/2025 12:50 PM EDT [facility] ([facility]) PAP, THINPREP Normal 02/13/2025 12:50 PM EDT [facility] High Risk HPV Normal 02/13/2025 12:50 PM EDT [facility] ([facility]) Swab Vaginal and cervical cytologic material / Unknown Non-blood Collection / Unknown 02/06/2025 8:23 AM EDT 02/06/2025 12:54 PM EDT Narrative [facility] ([place]) - 02/13/2025 12:50 PM EDT Authorized individuals can access the [facility] Enhanced Report with an [facility] Connect account using the following link. Your local lab can assist you in obtaining the patient report if you don't have a Connect account. [email or web address] Performed By: [facility] [address] [place] [id number] Demo Event Specialist: Thompson Correa MD, PhD CLIA Number: [id number] SPECIMEN PART A. Cervical, Endocervical, Vaginal, ThinPrep Pap ([employer]) CYTOLOGY HX Date of Last Menstrual Period: N FINAL DIAGNOSIS INTERPRETATION: Negative for Intraepithelial Lesion or Malignancy. SPECIMEN ADEQUACY:Satisfactory for evaluation. Endocervical/transformation zone component present. Electronically Signed Out : [email or web address] Performed by: [facility] [address] [place] [address] [place] [address] Desire Alvarez MD, HR-HPV: Negative Test performed by the FDA-approved Hologic (Gen-Probe) APTIMA HPV test, which detects HPV genotypes: 16, 18, 31, 33, 35, 39, 45, 51, 52, 56, 58, 59, 66, and 68. This assay has been cleared for the specimen types listed below. Other specimen types have not been validated for this assay. -Clinician-collected ThinPrep Pap specimens. Performed by: [facility] [address] [place] [address] [place] [address] Desire Alvarez MD, us Tres Ybarra MD LAB REF LAB BLOOD AND FLUID ORD Final Result Performing Organization Address [facility] [[email or web address]] Co de Phone Number [facility] ([address] [address] * HIV 1 & 2 Antibody/Antigen Screen (05/29/2023 10:20 AM EDT) HIV 1 & 2 Antibody/Antigen Screen Non Reactive Non Reactive 05/29/2023 2:06 PM EDT [facility] Comment:Screening for HIV 1 & 2 antibodies, and P24 antigen is NONREACTIVE. No confirmatory testing is required. Blood Venous blood specimen / Unknown Venipuncture / Unknown 05/29/2023 10:20 AM EDT 05/29/2023 1:01 PM EDT Result Mary Ybarra MD LAB BLOOD ORDERABLES Final Resu lt Performing Organization Address [facility] [[email or web address]] Co de Phone Number [facility] [address] [place] [address] * Hepatitis C Antibody (05/29/2023 10:20 AM EDT) Hepatitis C Antibody Negative Negative 05/29/2023 2:02 PM EDT [facility] Blood Venous blood specimen / Unknown Venipuncture / Unknown 05/29/2023 10:20 AM EDT 05/29/2023 1:01 PM EDT us Tres Ybarra MD LAB BLOOD ORDERABLES Final Resu lt Performing Organization Address [facility]/ZIP Co de Phone Number [facility] [address] [place] [address] * Pap Test (10/14/2022 4:17 PM EST) Case Report Cytology Case: [id number] Authorizing Provider: Tres Ybarra MD Collected: 10/14/2022 1617 Ordering Location: Obstetrics & Gynecology Received: 10/17/2022 0928 First Screen: Mag Garcia Specimen: ThinPrep Pap Test, Liquid-Based Cervical/Vaginal, CERVICAL/VAGINAL 10/18/2022 11:55 AM EST [facility] Interpretation NEGATIVE FOR INTRAEPITHELIAL LESION OR MALIGNANCY 10/18/2022 11:55 AM EST [facility] at 1155 EST Other Findings Fungal organisms consistent with Mili species. 10/18/2022 11:55 AM EST [facility] Specimen Adequacy Satisfactory for evaluation; endocervical/newell sformation zone component present. Slide imaged by the ThinPrep Imaging system and selected 22 chavis reviewed then full manual screening. 10/18/2022 11:55 AM EST [facility] Cervical cytology is a screening test [...] results is suggested (please call Microbiology at [phone] for results). 10/18/2022 11:55 AM EST [facility] Menstrual Status Not Applicable 10/06 11:55 AM EST [facility] Contraceptive History Intrauterine device 10/18/2022 11:55 AM EST [facility] Screening Type Routine Screen 2021 11:55 AM EST [facility] High Risk? No 10/18/2022 11:55 AM EST [facility] HPV Testing Requested? Request HPV Testing if ASCUS (Women 25 Years or Older) 10/18/2022 11:55 AM EST [facility] Previous Cancer History No 10/18/2022 11:55 AM EST [facility] Clinical Information Z01.419 - Encounter for annual routine gynecological examination [ICD-10-CM] 10/18/2022 11:55 AM EST [facility] Swab Vaginal and cervical cytologic material / Unknown Non-blood Collection / Unknown 10/14/2022 4:17 PM EST 10/17/2022 9:25 AM EST us Tres Ybarra MD LAB CYTOLOGY ORDERABLES Final R esult [facility] [address] [place] [address] from Last 3 Months or Most Recently Relevant to Health Maintenance [place] [address] ANTH Advance Directives * Full Code (Latest Code Status on File) Date Activated Date Inactivated Comments 08/09/2021 8:28 PM 08/10/2021 1:42 PM Question Answer Comments Patient has decision-making capacity? Yes * Full Code Date Activated Date Inactivated Comments 08/08/2021 3:47 AM 08/09/2021 12:51 AM Question Answer Comments Patient has decision-making capacity? Yes Care Teams Office Services Representative Relationship Specialty Start Date End Date Nadia Goodson MD [address] [place] [address] PCP - General 01/17/23
--- OUTSIDE RECORDS SUMMARY | 2025-05-02 11:08 | XMS_ITS | Encounter Summary ---
Author Organization [facility] Address [address] [place] [address] Care Team Providers Care Marker Delivery Name Role Phone Nadia Goodson MD Primary Care Provider [phone] Encounter Details Date Type Department Care Team (Latest Contact Info) Description 04/17/2025 Travel Social History Tobacco Use Types Packs/Day Years Used Date Smoking Tobacco: Never Smokeless Tobacco: Never Alcohol Use Standard Drinks/Week Comments No 0 (1 standard drink = 0.6 oz pur e alcohol) PHQ-2 Answer Date Recorded Patient Health Questionnaire-2 Score 0 04/08/2025 [place] Depression Scale Answer Date Recorded [place] Depression Scale Total 0 02/23/2024 The thought [...] EDT Clinical Support Obstetrics & Gynecology [address] [place] [address] 02/09/2026 8:45 AM EDT Procedure Visit Obstetrics & Gynecology [address] [place] [address] Tres Ybarra MD [address] [place] [address] documented as of this encounter [...] documented as of this encounter Care Teams Marker Delivery Relationship Specialty Start Date End Date Nadia Goodson MD [address] [place] [address] PCP - General 01/17/23 documented as of this encounter
--- OUTSIDE RECORDS SUMMARY | 2025-05-02 11:08 | XMS_ITS | Encounter Summary ---
Author Organization [facility] Address [address] [place] [address] Care Team Providers Care Director Sales And Marketing Name Role Phone Nadia Goodson MD Primary Care Provider [phone] Encounter Details Date Type Department Care Team (Late st Contact Info) Description 04/29/2025 Results Follow-Up Obstetrics & Gynecology [address] [place] [address] Tres Ybarra MD [address] [place] [address] Social History Tobacco Use Types Packs/Day Years Used Date Smoking Tobacco: Never Smokeless Tobacco: Never Alcohol Use Standard Drinks/Week Comments No 0 (1 standard drink = 0.6 oz pur e alcohol) PHQ-2 Answer Date Recorded Patient Health Questionnaire-2 Score 0 04/08/2025 [place] Depression Scale Answer Date Recorded [place] Depression Scale Total 0 02/23/2024 The thought [...] EDT Clinical Support Obstetrics & Gynecology [address] [place] [address] 02/09/2026 8:45 AM EDT Procedure Visit Obstetrics & Gynecology [address] [place] [address] Tres Ybarra MD [address] [place] [address] documented as of this encounter [...] documented as of this encounter Care Teams Director Sales And Marketing Relationship Specialty Start Date End Date Nadia Goodson MD [address] [place] [address] PCP - General 01/17/23 documented as of this encounter
--- OUTSIDE RECORDS SUMMARY | 2025-05-02 11:08 | XMS_ITS | Encounter Summary ---
Author Organization [facility] Address [address] [place] [address] Care Team Providers Care Retread Mold Operator Name Role Phone Nadia Goodson MD Primary Care Provider [phone] Encounter Details Date Type Department Care Team (Late st Contact Info) Description 04/30/2025 Results Follow-Up Obstetrics & Gynecology [address] [place] [address] Tres Ybarra MD [address] [place] [address] Social History Tobacco Use Types Packs/Day Years Used Date Smoking Tobacco: Never Smokeless Tobacco: Never Alcohol Use Standard Drinks/Week Comments No 0 (1 standard drink = 0.6 oz pur e alcohol) PHQ-2 Answer Date Recorded Patient Health Questionnaire-2 Score 0 04/08/2025 [place] Depression Scale Answer Date Recorded [place] Depression Scale Total 0 02/23/2024 The thought [...] EDT Clinical Support Obstetrics & Gynecology [address] [place] [address] 02/09/2026 8:45 AM EDT Procedure Visit Obstetrics & Gynecology [address] [place] [address] Tres Ybarra MD [address] [place] [address] documented as of this encounter [...] documented as of this encounter Care Teams Retread Mold Operator Relationship Specialty Start Date End Date Nadia Goodson MD [address] [place] [address] PCP - General 01/17/23 documented as of this encounter
--- OUTSIDE RECORDS SUMMARY | 2025-05-02 11:08 | XMS_ITS | Encounter Summary ---
Author Organization [employer] [facility] Address [address] [place] [address] Care Team Providers Care Kindergarten Prep Teacher Name Role Phone Unavailable Primary Care Provider Unavailabl e Encounter Details Date Type Department Care Team (Late st Contact Info) Description 09/24/2019 Transcribed Document [facility] [place] [address] [place] [address] ProviderLeón MD [address] [place], [place] [address] Social History Tobacco Use Types Packs/Day Years Used Date Smoking Tobacco: Never Assessed Comments Unknown Sex and Gender Information Value Date Recorded Sex Assigned at Not on file Legal Sex Female 6:09 PM CDT Gender Identity Not on file Sexual Orientation Not on file documented as of this encounter Miscellaneous Notes * Cerner Conversion Note - Historical ProviderMD - 09/24/2019 5:36 AM CATALOGUE MAKER [place] Suicide Severity Rating Scale (C-SSRS) Entered On: 09/24/2019 6:25 EST Performed On: 09/24/2019 6:24 EST by RENETTA NIXON RN [place] Suicide Severity Rating Scale (C-SSRS) CSSRS Past Month Wish to be : No CSSRS Past Month Suicidal Thoughts : No CSSRS Lifetime Suicide Behavior : No Suicide Severity Rating Score : 0 Suicide Severity Rating : No Additional Care Required at this time RENETTA NIXON RN - 09/24/2019 6:24 EST Electronically signed by Jimena [facility] Conversion Buttonhole Maker Hand Kimberly at 02/19/2023 9:41 AM CDT documented in this encounter Plan of Treatment Not on file documented as of this encounter Visit Diagnoses Not on filedocumented in this encounter
--- OUTSIDE RECORDS SUMMARY | 2025-05-02 11:09 | XMS_ITS | Encounter Summary ---
Author Organization [facility] Address [address] [place] [address] Care Team Providers Care Inspector Raw Quartz Name Role Phone Nadia Goodson MD Primary Care Provider [phone] Reason for Visit * Reason Onset Date Comments HCN - Patient Message 04/14/2025 Encounter Details Date Type Department Care Team (Late st Contact Info) Description 04/14/2025 Telephone Obstetrics & Gynecology [address] [place] [address] Tres Ybarra MD [address] [place] [address] HCN - Patient Message Social History Tobacco Use Types Packs/Day Years Used Date Smoking Tobacco: Never Smokeless Tobacco: Never Alcohol Use Standard Drinks/Week Comments No 0 (1 standard drink = 0.6 oz pur e alcohol) PHQ-2 Answer Date Recorded Patient Health Questionnaire-2 Score 0 04/08/2025 [place] Depression Scale Answer Date Recorded [place] Depression Scale Total 0 02/23/2024 The thought [...] Miscellaneous Notes * Telephone Encounter - Dallin Cottrellia Z - 04/14/2025 10:34 AM EDT Patient wanted to come at 4 but I explained 3:30 was the latest for a lab draw ... She will keep early appointment. * Telephone Encounter - Jesus Honeycutt - 04/14/2025 9:35 AM EDT Clinical Concern/Question Reason for Call: pt is asking for her nurse visit to be rs please Best contact number: [phone] (mobile) Optimal time of day to reach caller: ANYTIME Additional comments/information from caller: None Note: Please do not reply to this message. Follow-up communication and further actions as a result of this message need to be communicated with the patient directly, if the patient is not active onMyChart. If the patient is active on MyChart, they will receive notification of the communication/outcome via ResoServ. documented in this encounter Plan of Treatment Upcoming Encounters Date Type Department Care Team (Late st Contact Info) Description 05/08/2025 10:00 AM EDT Clinical Support Obstetrics & Gynecology [address] [place] [address] 02/09/2026 8:45 AM EDT Procedure Visit Obstetrics & Gynecology [address] [place] [address] Tres Ybarra MD [address] [place] [address] documented as of this encounter [...] documented as of this encounter Care Teams Inspector Raw Quartz Relationship Specialty Start Date End Date Nadia Goodson MD [address] [place] [address] PCP - General 01/17/23 documented as of this encounter
--- OUTSIDE RECORDS SUMMARY | 2025-05-02 11:09 | XMS_ITS | Encounter Summary ---
Author Organization [employer] [facility] Address [address] [place] [address] Care Team Providers Care Jewelry Finisher Name Role Phone Unavailable Primary Care Provider Unavailabl e Encounter Details Date Type Department Care Team (Late st Contact Info) Description 09/24/2019 Transcribed Document [facility] [place] [address] [place] [address] ProviderLeón MD [facility] [place], [place] [address] Social History Tobacco Use Types Packs/Day Years Used Date Smoking Tobacco: Never Assessed Comments Unknown Sex and Gender Information Value Date Recorded Sex Assigned at Not on file Legal Sex Female 6:09 PM CDT Gender Identity Not on file Sexual Orientation Not on file documented as of this encounter Miscellaneous Notes * Cerner Conversion Note - León ProviderMD - 09/24/2019 8:33 AM RN INTENSIVE CARE UNIT Pain Assessment Entered On: 09/24/2019 9:40 EST [...]
--- OUTSIDE RECORDS SUMMARY | 2025-05-02 11:09 | XMS_ITS | Encounter Summary ---
Author Organization [email or web address] Address [address] [place] [address] Care Team Providers Care Survival Equipment Repairer Name Role Phone Unavailable Primary Care Provider Unavailabl e Encounter Details Date Type Department Care Team (Late st Contact Info) Description 09/24/2019 Transcribed Document [facility] [place] [address] ProviderLeón MD [address] [place] [address] Social History Tobacco Use Types Packs/Day Years Used Date Smoking Tobacco: Never Assessed Comments Unknown Sex and Gender Information Value Date Recorded Sex Assigned at Not on file Legal Sex Female 6:09 PM CDT Gender Identity Not on file Sexual Orientation Not on file documented as of this encounter Miscellaneous Notes * [employer]ner Conversion Note - Historical ProviderMD - 09/24/2019 5:36 AM COMMUNICATIONS PROGRAM MANAGER ED Triage Entered On: 09/24/2019 5:47 EST Performed On: 09/24/2019 5:42 EST by MINDI WONG GOLF STARTER AND RANGER Triage Across the Room Triage Date/Time : 09/24/2019 5:42 EST Chief Complaint : Pt c/o fever and vaginal bleeding x2 days. Pt stated she is on her period but the bleeding is more than usual; +abdominal cramping. No med taken ADMITTING OFFICE ESCORT MINDI WONG, RN - 09/24/2019 5:42 EST MINDI WONG RN - 09/24/2019 5:42 EST DCP GENERIC CODE Tracking Group : [facility] MINDI WONG RN - [...] 09/24/2019 05:47:35 EST) Problems(Active) Asthma (SNOMED CT :530035211 ) Name of Problem: Asthma ; Recorder: RAJNI RAMIREZ RN; Confirmation: Confirmed ; Classification: Medical ; Code: [id number] ; Contributor System: PowerChart ; Last Updated: 09/01/2018 18:05 EDT ; Life Cycle Date: 09/01/2018 ; Life Cycle Status: Active ; Vocabulary: SNOMED CT Hypothyroid (SNOMED CT :13203831 ) Name of Problem: Hypothyroid ; Recorder: RAJNI RAMIREZ RN; Confirmation: Confirmed ; Classification: Medical ; Code: [id number] ; Contributor System: PowerChart ; Last Updated: 09/01/2018 18:05 EDT ; Life Cycle Date: 09/01/2018 ; Life Cycle Status: Active ; Vocabulary: SNOMED CT PCOS (polycystic ovarian syndrome) (SNOMED CT :559641479 ) Name of Problem: PCOS (polycystic ovarian syndrome) ; Recorder: RAJNI RAMIREZ RN; Confirmation: Confirmed ; Classification: Medical ; Code: [id number] ; Contributor System: Measurabl ; Last Updated: 09/01/2018 18:05 EDT ; Life Cycle Date: 09/01/2018 ; Life Cycle Status: Active ; Vocabulary: SNOMED CT Diagnoses(Active) Abdominal pain Date: 09/24/2019 ; Diagnosis Type: Reason For Visit ; Confirmation: Complaint of ; Clinical Dx: Abdominal pain ; Classification: Medical ; Clinical Service: Emergency medicine ; Code: PNED ; Probability: 0 ; Diagnosis Code: [id number] Fever Date: 09/24/2019 ; Diagnosis Type: Reason For Visit ; Confirmation: Complaint of ; Clinical Dx: Fever ; Classification: Medical ; Clinical Service: Emergency medicine ; Code: PNED ; Probability: 0 ; Diagnosis Code: [id number] Vaginal bleeding Date: 09/24/2019 ; Diagnosis Type: Reason For Visit ; Confirmation: Complaint of ; Clinical Dx: Vaginal bleeding ; Classification: Medical ; Clinical Service: Emergency medicine ; Code: PNED ; Probability: 0 ; Diagnosis Code: [id number] ED Height and Weight Height Source : Stated Height Entry Format : [place] Height, Feet : 5 ft(Converted to: 152 cm, 60 Inch) Height, Inches : 5 Inch(Converted to: 0 ft 5 Inch, 12.70 cm) Clinical Height : 165.1 cm Weight Source, ED : Standing scale Weight Entry Format : [place] Weight, Pounds : 220 lb Clinical Dosing Weight : 100 kg Body Surface Area (BSA) : 2.06 m2 Body Mass Index : 36.7 kg/m2 (HI) [place]son Body Weight (IBW) : 56.59 kg MINDI [...] - 09/24/2019 5:42 EST Electronically signed by [facility] Conversion Associate Dean Cerner at 02/19/2023 9:39 AM CDT documented in this encounter Plan of Treatment Not on file documented as of this encounter Visit Diagnoses Not on filedocumented in this encounter
--- OUTSIDE RECORDS SUMMARY | 2025-05-02 11:09 | XMS_ITS | Encounter Summary ---
Author Organization [facility] Address [address] [place] [address] Care Team Providers Care Maintenance Man Name Role Phone Nadia Goodson MD Primary Care Provider [phone] Encounter Details Date Type Department Care Team (Latest Contact Info) Description 04/08/2025 Travel Social History Tobacco Use Types Packs/Day Years Used Date Smoking Tobacco: Never Smokeless Tobacco: Never Alcohol Use Standard Drinks/Week Comments No 0 (1 standard drink = 0.6 oz pur e alcohol) PHQ-2 Answer Date Recorded Patient Health Questionnaire-2 Score 0 04/08/2025 [place] Depression Scale Answer Date Recorded [place] Depression Scale Total 0 02/23/2024 The thought [...] EDT Clinical Support Obstetrics & Gynecology [address] [place] [address] 02/09/2026 8:45 AM EDT Procedure Visit Obstetrics & Gynecology [address] [place] [address] Tres Ybarra MD [address] [place] [address] documented as of this encounter [...] documented as of this encounter Care Teams Maintenance Man Relationship Specialty Start Date End Date Nadia Goodson MD [address] [place] [address] PCP - General 01/17/23 documented as of this encounter
--- OUTSIDE RECORDS SUMMARY | 2025-05-02 11:09 | XMS_ITS | Encounter Summary ---
Author Organization [employer] Address [address] [place] [address] Care Team Providers Care Analytics Leader Name Role Phone Unavailable Primary Care Provider Unavailabl e Encounter Details Date Type Department Care Team (Late st Contact Info) Description 09/24/[address] [facility] Family Medicine [facility] [place] [address] ProviderLeón MD [address] [place] [id number] Social History Tobacco Use Types Packs/Day Years Used Date Smoking Tobacco: Never Assessed Comments Unknown Sex and Gender Information Value Date Recorded Sex Assigned at Not on file Legal Sex Female 6:09 PM CDT Gender Identity Not on file Sexual Orientation Not on file documented as of this encounter Miscellaneous Notes * Cerner Conversion Note - Historical ProviderMD - 09/24/2019 9:17 AM PRODUCTION INTERNSHIP documented in this encounter Plan of Treatment Not on file documented as of this encounter Visit Diagnoses Not on filedocumented in this encounter
--- OUTSIDE RECORDS SUMMARY | 2025-05-02 11:09 | XMS_ITS | Encounter Summary ---
Author Organization [employer] Address [address] [place] [address] Care Team Providers Care Lease Out Man Name Role Phone Unavailable Primary Care Provider Unavailabl e Encounter Details Date Type Department Care Team (Late st Contact Info) Description 09/24/[address] [facility] Family Medicine [address] [place] [address] ProviderLeón MD [address] [place] [address] Social History Tobacco Use Types Packs/Day [...] León Joseph MD - 09/24/2019 10:05 AM CONGRESSIONAL REPRESENTATIVE [place] [id number] PAM FENG :1995 Visit Time:09/24/2019 Your Visit [...] bleeding, fever and or persistent vomiting. Where: [facility] [address] [place] [address]- [facility] (1) Allergies amoxicillin (C/O - vomiting) [...] range between ( 1.0 and 7.0 ) Douglas #: 0.60 K/uL -- Normal range between ( 0.24 and 0.82 ) Eos #: 0.32 K/uL -- Normal range between ( 0.04 and 0.54 ) Douglas %: 7.9 % -- Normal range between [...] ) Urine Bilirubin Dipstick: Negative Urine Specific Joffre: 1.007 -- Normal range between ( 1.005 [...] 10/23/2006 Document Revised: 11/24/2017 Document Reviewed: 11/24/2017 [employer] Interactive Patient Education ?? [address] Emergency Awareness and Preventative Care STROKE is [...] Assistance with quitting is available by contacting 0-844-MNSF-NOW. This is a free resource providing counseling, [...] was given the opportunity to ask questions. Patient/Clinical Allergist Name: Patient/Clinical Allergist Signature: Relationship to Patient: Clinician/Hospital Clinical Allergist Signature: Please Provide a Telephone Number Where You Can Be Reached: Is it Permissible To Leave a Message? Date: documented in this encounter Plan of Treatment Not on file documented as of this encounter Visit Diagnoses Not on filedocumented in this encounter
--- OUTSIDE RECORDS SUMMARY | 2025-05-02 11:09 | XMS_ITS | Encounter Summary ---
Author Organization Healthcare Address [address] [place] [address] Care Team Providers Care Armature Varnisher Name Role Phone Nadia Goodson MD Primary Care Provider [phone] Encounter Details Date Type Department Care Team (Late st Contact Info) Description 03/27/2025 Telephone Obstetrics & Gynecology [address] [place] [address] Tres Ybarra MD [address] [place] [address] Social History Tobacco Use Types Packs/Day Years Used Date Smoking Tobacco: Never Smokeless Tobacco: Never Alcohol Use Standard Drinks/Week Comments No 0 (1 standard drink = 0.6 oz pur e alcohol) PHQ-2 Answer Date Recorded Patient Health Questionnaire-2 Score 0 04/08/2025 [place] Depression Scale Answer Date Recorded [place] Depression Scale Total 0 02/23/2024 The thought [...] 1 of her cycle Best contact number: [phone] (mobile) Optimal time of day to reach [...] will receive notification of the communication/outcome via [employer]. documented in this encounter Plan of Treatment Upcoming Encounters Date Type Department Care Team (Late st Contact Info) Description 05/08/2025 10:00 AM EDT Clinical Support Obstetrics & Gynecology [address] [place] [address] 02/09/2026 8:45 AM EDT Procedure Visit Obstetrics & Gynecology [address] [place] [address] Tres Ybarra MD [address] [place] [address] documented as of this encounter [...] documented as of this encounter Care Teams Armature Varnisher Relationship Specialty Start Date End Date Nadia Goodson MD [facility] [place] [address] PCP - General 01/17/23 documented as of this encounter
--- OUTSIDE RECORDS SUMMARY | 2025-05-02 11:09 | XMS_ITS | Encounter Summary ---
Author Organization Healthcare Address [address] [place] [address] Care Team Providers Care Menagerie Caretaker Name Role Phone Nadia Goodson MD Primary Care Provider [phone] Encounter Details Date Type Department Care Team (Late st Contact Info) Description 02/13/2025 Results Follow-Up Obstetrics & Gynecology [address] [place] [address] Tres Ybarra MD [address] [place] [address] Social History Tobacco Use Types Packs/Day Years Used Date Smoking Tobacco: Never Smokeless Tobacco: Never Alcohol Use Standard Drinks/Week Comments No 0 (1 standard drink = 0.6 oz pur e alcohol) PHQ-2 Answer Date Recorded Patient Health Questionnaire-2 Score 0 04/08/2025 [place] Depression Scale Answer Date Recorded [place] Depression Scale Total 0 02/23/2024 The thought [...] EDT Clinical Support Obstetrics & Gynecology [address] [place] [address] 02/09/2026 8:45 AM EDT Procedure Visit Obstetrics & Gynecology [address] [place] [address] Tres Ybarra MD [address] [place] [address] documented as of this encounter [...] documented as of this encounter Care Teams Menagerie Caretaker Relationship Specialty Start Date End Date Nadia Goodson MD [address] [place], [place] [id number] PCP - General 01/17/23 documented as of this encounter
--- OUTSIDE RECORDS SUMMARY | 2025-05-02 11:10 | XMS_ITS | Encounter Summary ---
Author Organization Healthcare Address [address] [place] [id number] Care Team Providers Care Metalsmith Name Role Phone Pcp, No Primary Care Provider Nadia Todd MD Primary Care Provider [phone] Pcp, No Primary Care Provider Nadia Todd MD Primary Care Provider [phone] Encounter Details Date Type Department Care Team ([facility] Contact Info) Description 11/05/2019 [facility] Historical OTTR [address] [place] [address] Marla Sin, RN [id number] [address] [place] [address] Social History Tobacco Use Types Packs/Day Years [...] AM EDT Clinical Support Obstetrics & Gynecology [facility] [place] [address] 02/09/2026 8:45 AM EDT Procedure Visit Obstetrics & Gynecology [address] [place] [address] Tres Ybarra MD [address] [place] [address] documented as of this encounter Visit Diagnoses Not on filedocumented in this encounter Care Teams Metalsmith Relationship Specialty Start Date End Date Pcp, No [address] [place] [address] PCP - General 08/07/21 08/08/21 Nadia Goodson MD [address] [place], [place] [id number] PCP - General 08/09/21 08/09/21 Pcp, No [address] [place] [address] PCP - General Family Medicine 07/08/22 01/16/23 Nadia Goodson MD [address] [place] [address] PCP - General 01/17/23 documented as of this encounter
--- OUTSIDE RECORDS SUMMARY | 2025-05-02 11:10 | XMS_ITS | Encounter Summary ---
Author Organization [facility] Address [address] [facility] [place] [address] Care Team Providers Care Building Service Worker Name Role Phone Nadia Goodson MD Primary Care Provider Encounter Details Date Type Department Care Team (Latest Contact Info) Description 04/28/2025 Travel Social History Tobacco Use Types Packs/Day Years Used Date Smoking Tobacco: Never Smokeless Tobacco: Never Alcohol Use Standard Drinks/Week Comments No 0 (1 standard drink = 0.6 oz pur e alcohol) PHQ-2 Answer Date Recorded Patient Health Questionnaire-2 Score 0 04/08/2025 [place] Depression Scale Answer Date Recorded [place] Depression Scale Total 0 02/23/2024 The thought [...] EDT Clinical Support Obstetrics & Gynecology [address] [place] [address] 02/09/2026 8:45 AM EDT Procedure Visit Obstetrics & Gynecology [address] [place] [address] Tres Ybarra MD [address] [place] [address] documented as of this encounter [...] documented as of this encounter Care Teams Building Service Worker Relationship Specialty Start Date End Date Nadia Goodson MD [address] [place] [address] PCP - General 01/17/23 documented as of this encounter
--- OUTSIDE RECORDS SUMMARY | 2025-05-02 11:10 | XMS_ITS | Encounter Summary ---
Author Organization Healthcare Address [address] [place] [address] Care Team Providers Care Business Development Engineer Name Role Phone Nadia Goodson MD Primary Care Provider [phone] Encounter Details Date Type Department Care Team (Late st Contact Info) Description 04/28/2025 [facility] Obstetrics & Gynecology [address] [place] [address] Tres Ybarra MD [address] [place] [address] Social History Tobacco Use Types Packs/Day Years Used Date Smoking Tobacco: Never Smokeless Tobacco: Never Alcohol Use Standard Drinks/Week Comments No 0 (1 standard drink = 0.6 oz pur e alcohol) PHQ-2 Answer Date Recorded Patient Health Questionnaire-2 Score 0 04/08/2025 [place] Depression Scale Answer Date Recorded [place] Depression Scale Total 0 02/23/2024 The thought [...] EDT Clinical Support Obstetrics & Gynecology [address] [place] [address] 02/09/2026 8:45 AM EDT Procedure Visit Obstetrics & Gynecology [address] [place] [address] Tres Ybarra MD [address] [place] [address] documented as of this encounter [...] documented as of this encounter Care Teams Business Development Engineer Relationship Specialty Start Date End Date Nadia Goodson MD [address] [place] [address] PCP - General 01/17/23 documented as of this encounter
--- OUTSIDE RECORDS SUMMARY | 2025-05-02 11:10 | XMS_ITS | Data Portability ---
Author Organization [facility] [place] [facility] ADMIN Address [address] [place] [id number] Care Team Providers Care Vice President Of Engineering Name Role Phone NADIA VAUGHN Primary Care Provider Assessment No assessment recorded. Plan of Treatment Reminders Order Date Submit Date Provider Last Modified By Organization Details Last Modified Time Details Appointments TELEPHONI C VISIT 15 2024 03:40P M Angelito Estrada, DNP, MENAGERIE SUPERINTENDENT, SLD INCLUSION TEACHER-C Not available Not available Not available Lab HbA1c (hemoglob in A1c), blood 2024 025 [email or web address] [facility], [address], [address], [place], [address], 01/17/2025 12:47:29 TSH + free T4, serum 2024 025 [email or web address] [facility], [address], [address], [place], [address], 01/17/2025 12:47:30 lipid panel, serum 2024 025 [email or web address] [facility], [address], [address], [place], [address], 01/17/2025 12:47:30 iron + TIBC + ferritin, serum 2024 025 [email or web address] [facility], [address], [address], [place], [address], 01/17/2025 12:47:29 folate, serum 2024 025 [email or web address] [facility], [address], [address], [place], [address], 01/17/2025 12:47:29 prealbumi n, serum 2024 025 [facility], [address], [address], [place], [address], 01/17/2025 12:47:29 thiamine, QN, blood 2024 025 [email or web address] [facility], [address], [address], [place], [address], 01/17/2025 12:47:29 methylmal cristiano, QN, serum or plasma 2024 025 [email or web address] [facility], [address], [address], [place], [address], 01/17/2025 12:47:29 vitamin D, 25-hydrox y, total, serum 2024 025 [facility], [address], [address], [place], [address], 01/17/2025 12:47:29 vitamin E, serum 2024 025 [facility], [address], [address], [place], [address], 01/17/2025 12:47:29 vitamin A (retinol) , serum 2024 025 [email or web address] [facility], [address], [address], [place], [address], 01/17/2025 12:47:29 CBC w/ auto diff 03/06/ 2025 03/06/2 025 [facility], [address], [address], [place], [address], 01/17/2025 12:47:29 CMP, serum or plasma 2024 025 [facility], [address], [address], [place], [address], 01/17/2025 12:47:29 Referral None recorded. Procedures None recorded. Surgeries None recorded. Imaging MRI, abdomen, w/wo contrast 2023 024 [email or web address] 19 [facility] [address], [place], [address], 04/30/2024 08:27:15 Medication Orders Zepbound 10 mg/0.5 mL subcutane ous pen injector 2024 025 [facility], [address], [place], [address], 04/04/2025 09:24:46 ondansetr on 4 mg disintegr ating tablet 2024 025 [facility], [address], [place], [address], 04/04/2025 09:24:48 Zepbound 7.5 mg/0.5 mL subcutane ous pen injector 2024 025 [facility] - [facility], [address], [place], [address], 03/06/2025 14:11:55 Zepbound 5 mg/0.5 mL subcutane ous pen injector 2024 025 [facility], [address], [place], [address], 04/04/2025 09:17:26 Zepbound 2.5 mg/0.5 mL subcutane ous pen injector 2024 025 [facility] - [facility], [address], [place], [address], 03/06/2025 13:58:34 famotidin e 20 mg tablet 2024 025 [facility] - [facility], [address] [facility] [address], [place], [address], 01/09/2025 13:40:29 omeprazol e 20 mg capsule,d elayed release 2024 025 [facility] - [facility], [address] [facility] [address], [place], [address], 01/09/2025 13:40:31 Patient TargetsNo targets recorded. Patient InstructionsNo instructions recorded. Reason for Referral None Reported. Results Created Date Observation Date Name Description Value Unit Range Abnormal Flag Note LastModifiedBy Organization Detail LastModifiedTime 01/10/2001/10/2025 FE+TI BC+FE R iron bind.cap.(TI BC) 479 ug/dL 250-45 0 above high normal Not Available [facility] ([facility]) [address], [place], [address], 01/19/2025 08:36:15 01/10/2001/10/2025 FE+TI BC+FE R UIBC 456 ug/dL 131-42 5 above high normal Not Available [facility] ([facility]) [address] [place], [address], 01/19/2025 08:36:15 01/10/20 25 01/10/2025 FE+TI BC+FE R iron 23 ug/dL 27-159 below low normal Not Available [facility] ([facility]) [address] [place], [address], 01/19/2025 08:36:15 01/10/20 25 01/10/2025 FE+TI BC+FE R iron saturation 5 % 15-55 alert low Not Available [facility] ([facility]) [address] [place], [address], 01/19/2025 08:36:15 01/10/20 25 01/10/2025 FE+TI BC+FE R ferritin 7 NG/mL 15-150 below low normal Not Available [facility] ([facility]) [address] [place], [address], 01/19/2025 08:36:15 01/10/20 25 01/10/2025 TSH+F REE T4 TSH 3.330 uIU/m L 0.450- 4.500 normal Not Available [facility] ([facility]) [address] [place], [address], 01/19/2025 08:36:16 01/10/20 25 01/10/2025 TSH+F REE T4 T4,free(dire ct) 1.20 NG/dL 0.82-1 .77 normal Not Available [facility] ([facility]) [address] [place], [address], 01/19/2025 08:36:16 01/10/20 25 01/10/2025 CBC WITH DIFFE RENTI AL/PL ATELE T WBC 7.2 x10e3 /uL 3.4-10 .8 normal Not Available [facility] ([facility]) [address] [place], [address], 01/19/2025 08:36:16 01/10/20 25 01/10/2025 CBC WITH DIFFE RENTI AL/PL ATELE T RBC 4.86 x10e6 /uL 3.77-5 .28 normal Not Available [facility] ([facility]) [address] [place], [address], 01/19/2025 08:36:16 01/10/20 25 01/10/2025 CBC WITH DIFFE RENTI AL/PL ATELE T hemoglobin 10.0 g/dL 11.1-1 5.9 below low normal Not Available [facility] ([facility]) [address] [place], [address], 01/19/2025 08:36:16 01/10/2001/10/2025 CBC WITH DIFFE RENTI AL/PL ATELE T hematocrit 33.3 % 34.0-4 6.6 below low normal Not Available [facility] ([facility]) [address] [place], [address], 01/19/2025 08:36:16 01/10/20 25 01/10/2025 CBC WITH DIFFE RENTI AL/PL ATELE T MCV 69 fL 79-97 below low normal Not Available [facility] ([facility]) [address] [place], [address], 01/19/2025 08:36:16 01/10/20 25 01/10/2025 CBC WITH DIFFE RENTI AL/PL ATELE T MCH 20.6 pg 26.6-3 3.0 below low normal Not Available [facility] ([facility]) [address] [place], [address], 01/19/2025 08:36:16 01/10/2001/10/2025 CBC WITH DIFFE RENTI AL/PL ATELE T MCHC 30.0 g/dL 31.5-3 5.7 below low normal Not Available [facility] ([facility]) [address] [place], [address], 01/19/2025 08:36:16 01/10/20 25 01/10/2025 CBC WITH DIFFE RENTI AL/PL ATELE T RDW 14.7 % 11.7-1 5.4 Not Available [facility] ([facility]) [address] [place], [place], [address], 01/19/2025 08:36:16 01/10/20 25 01/10/2025 CBC WITH DIFFE RENTI AL/PL ATELE T platelets 265 x10e3 /uL 150-45 0 normal Not Available [facility] ([facility]) [address], [place], [place], [address], 01/19/2025 08:36:16 01/10/20 25 01/10/2025 CBC WITH DIFFE RENTI AL/PL ATELE T neutrophils 66 % not estab. normal Not Available [facility] ([facility]) [address] [place], [place], [address], 01/19/2025 08:36:16 01/10/20 25 01/10/2025 CBC WITH DIFFE RENTI AL/PL ATELE T lymphs 24 % not estab. normal Not Available [facility] ([facility]) [address] [place], [place], [address], 01/19/2025 08:36:16 01/10/20 25 01/10/2025 CBC WITH DIFFE RENTI AL/PL ATELE T monocytes 8 % not estab. normal Not Available [facility] ([facility]) [address], [place], [place], [address], 01/19/2025 08:36:16 01/10/20 25 01/10/2025 CBC WITH DIFFE RENTI AL/PL ATELE T eos 2 % not estab. normal Not Available [facility] ([facility]) [address] [place], [place], [address], 01/19/2025 08:36:16 01/10/20 25 01/10/2025 CBC WITH DIFFE RENTI AL/PL ATELE T basos 0 % not estab. normal Not Available [facility] ([facility]) [address], [place], [place], [address], 01/19/2025 08:36:16 01/10/20 25 01/10/2025 CBC WITH DIFFE RENTI AL/PL ATELE T immature cells SLD INCLUSION TEACHER Not Available [facility] ([facility]) [address] [place], [place], [address], 01/19/2025 08:36:16 01/10/20 25 01/10/2025 CBC WITH DIFFE RENTI AL/PL ATELE T neutrophils (absolute) 4.7 x10e3 /uL 1.4-7. 0 normal Not Available [facility] ([facility]) [address] [place], [place], [address], 01/19/2025 08:36:16 01/10/20 25 01/10/2025 CBC WITH DIFFE RENTI AL/PL ATELE T lymphs (absolute) 1.7 x10e3 /uL 0.7-3. 1 normal Not Available [facility] ([facility]) [address] [place], [address], 01/19/2025 08:36:16 01/10/20 25 01/10/2025 CBC WITH DIFFE RENTI AL/PL ATELE T monocytes(ab solute) 0.6 x10e3 /uL 0.1-0. 9 normal Not Available [facility] ([facility]) [address] [place], [address], 01/19/2025 08:36:16 01/10/20 25 01/10/2025 CBC WITH DIFFE RENTI AL/PL ATELE T eos (absolute) 0.1 x10e3 /uL 0.0-0. 4 normal Not Available [facility] ([facility]) [address] [place], [address], 01/19/2025 08:36:16 01/10/20 25 01/10/2025 CBC WITH DIFFE RENTI AL/PL ATELE T baso (absolute) 0.0 x10e3 /uL 0.0-0. 2 normal Not Available [facility] ([facility]) [address], [place], [place], [address], 01/19/2025 08:36:16 01/10/20 25 01/10/2025 CBC WITH DIFFE RENTI AL/PL ATELE T immature granulocytes 0 % not estab. Not Available [facility] ([facility]) [address], [place], [place], [address], 01/19/2025 08:36:16 01/10/20 25 01/10/2025 CBC WITH DIFFE RENTI AL/PL ATELE T immature grans (abs) 0.0 x10e3 /uL 0.0-0. 1 Not Available [facility] ([facility]) [address] [place], [place], [address], 01/19/2025 08:36:16 01/10/20 25 01/10/2025 CBC WITH DIFFE RENTI AL/PL ATELE T NRBC SLD INCLUSION TEACHER Not Available [facility] ([facility]) [address], [place], [place], [address], 01/19/2025 08:36:16 01/10/20 25 01/10/2025 CBC WITH DIFFE RENTI AL/PL ATELE T hematology comments: SLD INCLUSION TEACHER Not Available [facility] ([facility]) [address], [place], [place], [address], 01/19/2025 08:36:16 01/10/20 25 01/10/2025 COMP. METAB OLIC PANEL (14) glucose 74 mg/dL 70-99 normal Not Available [facility] ([facility]) [address] [place], [address], 01/19/2025 08:36:18 01/10/20 25 01/10/2025 COMP. METAB OLIC PANEL (14) BUN 12 mg/dL 6-20 normal Not Available [facility] ([facility]) [address] [place], [address], 01/19/2025 08:36:18 01/10/20 25 01/10/2025 COMP. METAB OLIC PANEL (14) creatinine 0.60 mg/dL 0.57-1 .00 normal Not Available [facility] ([facility]) [address] [place], [address], 01/19/2025 08:36:18 01/10/20 25 01/10/2025 COMP. METAB OLIC PANEL (14) eGFR 123 mL/mi n/1.7 3 >59 normal Not Available [facility] ([facility]) [address], [place], [address], 01/19/2025 08:36:18 01/10/20 25 01/10/2025 COMP. METAB OLIC PANEL (14) BUN/creatini ne ratio 20 9-23 normal Not Available [facility] ([facility]) [address], [place], [address], 01/19/2025 08:36:18 01/10/20 25 01/10/2025 COMP. METAB OLIC PANEL (14) sodium 139 mmol/ L 134-14 4 normal Not Available [facility] ([facility]) [address], [place], [address], 01/19/2025 08:36:18 01/10/20 25 01/10/2025 COMP. METAB OLIC PANEL (14) potassium 4.1 mmol/ L 3.5-5. 2 normal Not Available [facility] ([facility]) [address], [place], [address], 01/19/2025 08:36:18 01/10/20 25 01/10/2025 COMP. METAB OLIC PANEL (14) chloride 103 mmol/ L 96-106 normal Not Available [facility] ([facility]) [address], [place], [address], 01/19/2025 08:36:18 01/10/20 25 01/10/2025 COMP. METAB OLIC PANEL (14) carbon dioxide, total 21 mmol/ L 20-29 normal Not Available [facility] ([facility]) [address], [place], [address], 01/19/2025 08:36:18 01/10/20 25 01/10/2025 COMP. METAB OLIC PANEL (14) calcium 9.0 mg/dL 8.7-10 .2 normal Not Available [facility] ([facility]) [address] [place], [address], 01/19/2025 08:36:18 01/10/20 25 01/10/2025 COMP. METAB OLIC PANEL (14) protein, total 7.3 g/dL 6.0-8. 5 normal Not Available [facility] ([facility]) [address], [place], [address], 01/19/2025 08:36:18 01/10/20 25 01/10/2025 COMP. METAB OLIC PANEL (14) albumin 4.8 g/dL 3.9-4. 9 normal Not Available [facility] ([facility]) [address], [place], [address], 01/19/2025 08:36:18 01/10/20 25 01/10/2025 COMP. METAB OLIC PANEL (14) globulin, total 2.5 g/dL 1.5-4. 5 Not Available [facility] ([facility]) [address], [place], [address], 01/19/2025 08:36:18 01/10/20 25 01/10/2025 COMP. METAB OLIC PANEL (14) bilirubin, total 0.3 mg/dL 0.0-1. 2 normal Not Available [facility] ([facility]) [address], [place], [address], 01/19/2025 08:36:18 01/10/20 25 01/10/2025 COMP. METAB OLIC PANEL (14) alkaline phosphatase 104 IU/L 44-121 normal Not Available [facility] ([facility]) [address], [place], [address], 01/19/2025 08:36:18 01/10/20 25 01/10/2025 COMP. METAB OLIC PANEL (14) AST (SGOT) 16 IU/L 0-40 normal Not Available [facility] ([facility]) [address], [place], [address], 01/19/2025 08:36:18 01/10/20 25 01/10/2025 COMP. METAB OLIC PANEL (14) ALT (SGPT) 11 IU/L 0-32 normal Not Available [facility] ([facility]) [address] [place], [address], 01/19/2025 08:36:18 01/10/20 25 01/10/2025 LIPID PANEL cholesterol, total 161 mg/dL 100-19 9 normal Not Available [facility] ([facility]) [address] [place], [address], 01/19/2025 08:36:18 01/10/20 25 01/10/2025 LIPID PANEL triglyceride s 94 mg/dL 0-149 normal Not Available [facility] ([facility]) [address] [place], [address], 01/19/2025 08:36:18 01/10/20 25 01/10/2025 LIPID PANEL HDL cholesterol 60 mg/dL >39 normal Not Available [facility] ([facility]) [address] [place], [address], 01/19/2025 08:36:18 01/10/20 25 01/10/2025 LIPID PANEL VLDL cholesterol jessica 17 mg/dL 5-40 Not Available [facility] ([facility]) [address] [place], [address], 01/19/2025 08:36:18 01/10/20 25 01/10/2025 LIPID PANEL LDL chol calc ([facility]) 84 mg/dL 0-99 Not Available [facility] ([facility]) [address], [place], [place], [address], 01/19/2025 08:36:18 01/10/20 25 01/10/2025 LIPID PANEL LDL calc comment: SLD INCLUSION TEACHER Not Available [facility] ([facility]) [address], [place], [place], [address], 01/19/2025 08:36:18 01/10/20 25 01/19/2025 VITAM IN E vitamin E(alpha tocopherol) 14.6 mg/L 5.9-19 .4 Not Available [facility] ([facility]) [address] [place], [place], [address], 01/19/2025 08:36:19 01/10/20 25 01/19/2025 VITAM IN [...] in E defic ient. Not Available [facility] ([facility]) [address], [place], [place], [address], 01/19/2025 08:36:19 01/10/20 25 01/10/2025 HEMOG LOBIN A1C hemoglobin A1C 5.1 % 4.8-5. 6 normal Predi abete s: 5.7 - 6.4 Diabe [place]: >6.4 Glyce quintin contr ol for adult s with diabe [place]: <7.0 Not Available [facility] ([facility]) [address], [place], [place], [address], 01/19/2025 08:36:19 01/10/2001/10/2025 FOLAT E (FOLI C ACID) , SERUM folate (folic acid), serum 11.6 NG/mL >3.0 normal A serum folat e victoriano ntrat ion of less than 3.1 ng/mL is consi dered to repre sent clini jessica defic iency . Not Available [facility] ([facility]) [address], [place], [place], [address], 01/19/2025 08:36:20 01/10/2001/19/2025 VITAM IN A, SERUM [...] Drug Admin istra tion. Not Available [facility] ([facility]) [address], [place], [place], [address], 01/19/2025 08:36:21 01/10/2001/10/2025 VITAM IN D, 25-HY [...] um and D. Amalia red [place]: [facility] . 2. Sami ramos [place], Rose houston [place], Arian off-F errar i [place]AG[place], et al. Evalu ation , treat ment, and preve ntion of vitam in D defic iency : an Endoc rine Socie ty clini jessica pract ice guide line. JCEM. 2010; 96(7) :1911 -30. Not Available [facility] ([facility]) [address], [place], [place], [address], 01/19/2025 08:36:21 01/10/20 25 01/13/2025 VITAM IN B1 (THIA MINE) , BLOOD vit. B1, whole blood 136.6 nmol/ L 66.5-2 00.0 Not Available [facility] ([facility]) [address] [place], [address], 01/19/2025 08:36:22 01/10/20 25 01/15/2025 METHY LMALO HIWOT ACID, SERUM methylmaloni c acid, serum 177 nmol/ L 0-378 Not Available [facility] ([facility]) [address] [place], [address], 01/19/2025 08:36:22 01/10/20 25 01/10/2025 PREAL BUMIN prealbumin 23 mg/dL 14-35 Not Available [facility] ([facility]) [address] [place], [address], 01/19/2025 08:36:23 04/15/20 24 04/15/2024 MRI ABD w/w/O [facility] [address] [place] [address] Phone: Fax: Name: WALLY PHILLIPS Exam Date: 024 : [birth year] Age 28 years Gender : F Access ion: [id number] Physic jarett: NADIA DRUMMOND Facili ty: [facility] Facili ty HSV: Outpat ient Exam: MRI ABD W/W/O FINAL REPORT CLINIC AL HISTOR Y: Abnorm al spot on left kidney Histor y of kidney stones H/o gastri c sleeve , cholec ystect anlia? COMPAR JOHN: CT abdome n and pelvis [...] Morgan Benavidez III, MD Transc ribed by Maglay gallego and Electr onical ly Signed by Morgan Benavidez III, MD on 2023 03:49: 37 PMEAST CALLIE Dictat ed By: Morgan Benavidez III Transc ribed By: Transc ribed On: 3:49 PM Electr onical ly signed by: Morgan Benavidez III Thank you for referr WALLY Villanueva to [facility]. Legall y carter gallego by TARA Aviles III 04-15 15:49: 37 CC'ed Logic: Orderi ng Provid er: RODERICK GORE CC Provid er: RODERICK GORE Attend ing Provid er: RODERICK NADIA Referr ing Provid er: RODERICK GORE Admitt ing Provid er: RODERICK GORE [email or web address] [facility] [address], [place], [address], 01/09/2025 13:34:49 03/25/20 25 03/25/2025 XR, knee No observ ation record ed. [email or web address] [facility] [address], [place], [place], [address], 03/27/2025 18:08:14 04/24/20 25 04/24/2025 XR, chest No observ ation record ed. [email or web address], [place], [place], [address], 04/29/2025 18:06:34 04/24/20 25 04/24/2025 elect mary rodney am No observ ation record ed. [email or web address], [place], [place], [address], 04/29/2025 18:05:32 Result Notes None recorded. Problems Name Problem SNOMED Code Status Onset Date Resolution Date Notes Provider Name and Address Organization Details Recorded Time Polycystic ovary syndrome 712462433 Active 2021 YONATHAN Anderson [address], [place], [address] , [place] [facility] & [place] 2 09:00:55 Vitamin D deficiency 27182165 Active [address], [address] , [place], [address] , [place] [facility] & [place] 2 16:39:55 Laparoscop ic sleeve gastrectom y Active [address], [address] , [place], [address] , [place] [facility] & [place] 2 16:39:55 Hypothyroi dism 46840043 Active [address], [address] [facility], [place], [address] , [place] - [facility] [place] & [place] 2 16:39:56 Obesity 327270719 Active [address], [address] [facility], [place], [address] , [place] [facility] [place] & [place] 2 16:39:55 Acquired hypothyroi dism 319965777 Active [address], [address] [facility], [place], [address] , [place] [facility] [place] & [place] 2 16:39:55 Indigestio n 940554685 Active [address], [address] [facility], [place], [address] , [place] [facility] [place] & [place] 2 16:39:55 Disorder of gastrointe stinal tract 119303132 Active [address], [address] [facility], [place], [address] , [place] [facility] [place] & [place] 2 16:39:55 Shoulder strain 935005576 Active [address], [address] [facility], [place], [address] , [place] [facility] [place] & [place] 2 16:39:55 Prolactin level above reference range 272973690 Active [address]UNIR [address], [place] [address] [facility], [place], [address] , [place] [facility] [place] & [place] 2 16:39:55 Plain X-ray result abnormal 175026508 Active MUNIR [address], [address] [facility], [place], [address] , [place] [facility] [place] & [place] 2 16:39:55 Polycystic ovaries Active MUNIR [address], [address] [facility], [place], [address] , [place] [facility] [place] & [place] 2 16:39:55 Missed period 77939183 Active MUNIR [address], [address] [facility], [place], [address] , [place] [facility] [place] & [place] 2 16:39:55 Mild depression 710856527 Active MUNIR G[address], [address] [facility], [place], [address] , [place] [facility] [place] & [place] 2 16:39:55 Stress 76656459 Active MUNIR [address], [address] [facility], [place], [address] , [place] [facility] [place] & [place] 2 16:39:55 Mixed hyperlipid emia 728055943 Active MUNIR GARCIA [address], [address] [facility], [place], [address] , [place] [facility] [place] 2 16:39:55 Liver enzymes level above reference range 356117441 Active MUNIR G[address], [address] [facility], [place], [address] , [place] [facility] [place] & [place] 2 16:39:55 Recurrent major depressive episodes, moderate 073599784 Active MUNIR G[address], LD [address] [facility], [place], [address] , [place] [facility] [place] 2 16:39:55 Mood disorder 18778376 Active MUNIR G[address], LD [address] [facility], [place], [address] , [place] [facility] [place] & [place] 2 16:39:55 Essential hypertensi on 71208722 Active MUNIR GARCIA RD, LD [address] [facility], [place], [address] , [place] [facility] & [place] 2 16:39:55 Steatotic liver disease 391031689 Active MUNIR G[address], [address] [facility], [place], [address] , [place] [facility] [place] 2 16:39:55 Dysthymia 67349489 Active MUNIR G[address], [address] [facility], [place], [address] , [place] - [facility] - [place] & [place] 2 16:39:55 Thyroid nodule [id number] Active [address]UN[address], LD 1140 Formerly [facility], [place], [address] , [place] - [facility] - [place] & [place] 2 16:39:55 Morbid obesity [id number] Active [address]UNIR [address], LD [address]0 [facility]ly [facility], [place], [address] , [place] - [facility] & [place] 2 16:39:55 Goiter 3994302 Active [address]UN[address], LD 1140 Formerly [facility], [place], [address] , [place] - [facility] - [place] & [place] 2 16:39:56 Elevated level of transamina se and lactic acid dehydrogen ase 593469467 Active [address]UN[address], LD 1140 Formerly [facility], [place], [address] , [place] - [facility] & [place] 2 16:39:56 Nausea 682443214 Active MUNIR GARCIA KURTIS, LD 1140 Formerly [facility], [place], [place], [address] , [place] - [facility] & [place] 2 16:39:56 Body mass index 30+ - obesity 704159153 Active MUNIR GARCIA KURTIS, LD [address] [facility], [place], [address] , [place] [facility] [facility] & [place] 2 16:39:56 Irregular intermenst rual bleeding 31928799 Active MUNIR MAXWELL RADHA HULL, LD [address] [facility], [place], [address] , [place] & [place] 2 16:39:56 Anxiety 18259667 Active MUNIR GARCIA RD, LD [address], [place], [address] , [place] & [place] 2 16:39:56 Nodule of lung 024415577 Active MUNIR GARCIA RD, LD [address], [place], [address] , [place] [facility] [facility] & [place] 2 16:39:56 Carpal tunnel syndrome of right wrist 6067302530192 [address], LD [address] [facility], [place], [address] , [place] & [place] 2 16:39:56 Abdominal pain 34367928 Active MUNIR GARCIA RD, LD [address] [facility], [place], [address] , [place] [facility] [facility] & [place] 2 16:39:56 Pain in throat 317033775 Active 2021 TREMAYNE carcamo, [place] - [place] & [place] 2 17:14:51 Intentiona l weight loss 295694860 Active 2021 Angelito Estarda, MATTHEW, MENAGERIE SUPERINTENDENT, SLD INCLUSION TEACHER-C [address] [facility], [place], [address] , [place] & [place] 2 11:51:56 Heartburn 84667310 Active 2022 Angelito Estrada, DNP, MENAGERIE SUPERINTENDENT, SLD INCLUSION TEACHER-C [address] [facility] [facility], [place], [address] , [place] [facility] & [place] 3 13:15:59 Fatigue 86840210 Active 2023 Angelito Estrada, MATTHEW, MENAGERIE SUPERINTENDENT, SLD INCLUSION TEACHER-C [address] [facility], [place], [address] , [place] & [place] 4 10:28:55 Problem Notes None recorded. Procedures Surgical History Date Name Laterality Status Provider Name and Address Organization Details Recorded Time 08/06 Laparoscopy completed Isabel Rothamer [place] - [place] & [place] 5 11:39:58 11/06 Engineering Model Maker Surgery completed Isabel [place]amer [place] & [place] 5 11:29:41 10/06 Date of Last Pap Smear completed Ela Castillo [place] & [place] 4 11:58:37 09/23 laparoscopic sleeve gastrectomy completed Ana Moya [place] & [place] 2 13:07:03 07/15 esophagogastroduodenoscopy completed Karly conner [place] & [place] 5 11:42:14 11/06 Carpal Tunnel Surgery completed Paige LEAVITT - LPNT - [place] & [place] 4 15:50:19 06/16 fine needle biopsy of thyroid completed Isabel Woodsamer [place] - [place] & [place] 5 11:39:48 02/10 esophagogastroduodenoscopy completed Karly da [place]indsay [place] & [place] 5 11:33:29 11/06 Knee Surgery completed Isabel [place]amer [place] & [place] 5 11:37:12 11/06 Ovarian Cystectomy completed Isabel [place]amer [place] & [place] 5 11:37:19 11/06 cholecystectomy completed Paige LEAVITT - LP[place] - [place] & [place] 4 15:49:18 11/06 extraction of wisdom tooth completed Karly [place]ales [place] - [place] & [place] 5 11:37:41 11/06 tonsillectomy completed Paige LEAVITT - [facility] & [place] 4 15:49:26 11/06 ENT Surgery completed Isabel LEAVITT - [facility]NT [facility] & [place] 5 11:29:41 Imaging Results None recorded. Procedure Notes None recorded. Medical Equipment None Reported. Allergies Allergen ID Allergen Name Allergen Category Reaction Reaction Severity Criticality Documentation Date Start Date Code Code System Note Provider Name and Address Organization Details Recorded Time 78779 amoxicill in medicatio n nausea rash vomiting Not available Not available Not available low 07/21/2022 723 RxNorm Hever ates cepha lospo rins Isabel Woodsamer null, [place] - [facility] & [place] 5 11:58:46 29540 phentermi ne medicatio n tachycard ia moderate Not available 07/21/[address], LD [address], [place], [address] [place] [address] - NT [facility] & [place] 2 16:40:31 678184 Non-stero idal anti-infl ammatory agent (product) medicatio n other Not available low 08/29/2024 26280 005 SNOMED Cant take with recen t gastr ic sleev e surge ry Isabel Woodsamer null, [place] - [facility] & [place] 5 11:58:59 10337 Derm-Appl y medicatio n Not available Not available low 08/31/2022 59329 UNK derma cortez Isabel Woodsamer null, [place] - [facility] & [place] 5 11:59:05 14899 hydrocodo ne Not available rash severe high 08/31/2022 5489 RxNorm Isabel Chuckamer null, [place] [facility] & [place] 5 11:58:49 Medications Name Sig Start Date [...] cm 99.2 [degF] 96 /min 28.8 kg/m2 05241.4 8 g 137 mm[Hg] 71 mm[Hg] Bernie Medina [place] [facility] & [place] 13:25:42 Date Recorded Body height Body mass index (BMI) Body weight Provider Name and Address Organization Details Last Updated DateTime 02/06/2025 165.1 cm 27.1 kg/m2 13947.56 g Reinaldo aviles [place] - [place] [facility] & [place] 02/06/2025 14:58:01 Date Recorded Body height Body mass index (BMI) Body weight Provider Name and Address Organization Details Last Updated DateTime 03/06/2025 165.1 cm 25.6 kg/m2 70050.22 g Bernie LEAVITT [facility] & [place] 03/06/2025 13:55:52 Date Recorded Body height Body mass index (BMI) Body weight Body temperature Oxygen saturation Oxygen saturation in Arterial blood by Pulse oximetry Heart rate Systolic blood pressure Diastolic blood pressure Provider Name and Address Organization Details Last Updated DateTime 165.1 cm 27 kg/m2 69454.9 6 g 97.7 [degF] 98 % 98 % 64 /min 120 mm[Hg] 80 mm[Hg] Ela Castillo [facility] & [place] 10:23:13 Date Recorded Body height Body mass index (BMI) Body weight Provider Name and Address Organization Details Last Updated DateTime 04/04/2025 165.1 cm 24.5 kg/m2 54406.08 g Bernie LEAVITT [facility] & [place] 04/04/2025 09:11:54 Social History Question Answer Notes LastModified by Organizat ion Details LastModified Time Tobacco Smoking Status Never Smoker Ana Arangoith [facility] & [place] 07/21/2022 13:33:48 Do You Have An Advance Directive? No [email or web address] Information not available 09/27/2022 Are You Blind Or Do You Have Difficulty Seeing? Yes [email or web address] Information not available 09/27/2022 Are You Deaf Or Do You Have Serious Difficulty Hearing? No [email or web address] Information not available 03/28/2023 What Was The [...] use any illicit or recreational drugs? No [email or web address] Information not available 07/21/2022 Do you or have you ever used any other forms of tobacco or nicotine? No [email or web address] Information not available 03/28/2023 What is your level of alcohol consumption? None [email or web address] Information not available 07/21/2022 Do you or have you ever used smokeless tobacco? Never used [email or web address] tobacco Information not available 01/21/2025 What is your exercise level? Moderate [email or web address] Information not available 09/27/2022 Mental Status Question Answer Note LastModified by Organization D etails LastModified Time Do you feel stressed (tense, restless, nervous, or anxious, or unable to sleep at night)? PD6442-3 [email or web address] Information not available 09/27/2022 Family History Relationship Description Onset Age of this Age Resolved Age Notes LastModified by Organization Details LastModified Time Mother Diabetes mellitus [email or web address] Not available 02/06 14:55:01 Mother Essential hypertension [email or web address] Not available 14:55:01 Mother Obesity [email or web address] Not available 1 08:41:00 Mother Hyperlipidem ia [email or web address] Not available 02/06 14:55:01 Mother Disease of liver pt. added direct ly (01/09) [email or web address] Not available 01/09/2025 10:35:03 Mother Cirrhosis - non-alcoholi c [email or web address] Not available 02/06 14:55:01 Mother Anemia [email or web address] Not available 01/21/2025 11:57:09 Maternal Grandfather Diabetes mellitus [email or web address] Not available 02/06 14:55:01 Maternal Grandfather Essential hypertension [email or web address] Not available 14:55:01 Maternal Grandfather Coronary arterioscler osis Not available 02/06 14:55:01 Maternal Grandfather Obesity [email or web address] Not available 2023 08:41:17 Maternal Grandfather Hyperlipidem ia [email or web address] Not available 02/06 14:55:01 Maternal Grandfather Myocardial infarction [email or web address] Not available 01/21 11:56:03 Maternal Grandfather Sleep apnea [email or web address] Not available 02/06/2025 14:55:01 Father Essential hypertension [email or web address] Not available 14:55:01 Father Coronary arterioscler osis [email or web address] Not available 02/06 14:55:01 Father Obesity [email or web address] Not available 1 08:41:09 Father Hyperlipidem ia [email or web address] Not available 02/06 14:55:01 Father Heart disease [email or web address] Not available 2024 11:36:37 Father Diabetes mellitus [email or web address] Not available 02/06 14:55:01 Father Myocardial infarction [email or web address] Not available 01/21 11:55:23 Father Kidney disease [email or web address] Not available 2024 11:55:46 Maternal Grandmother Essential hypertension [email or web address] Not available 14:55:01 Maternal Grandmother Obesity [email or web address] Not available 2023 08:41:13 Maternal Grandmother Malignant neoplastic disease [email or web address] Not available 02/06 14:55:01 Paternal Grandmother Obesity [email or web address] Not available 2023 08:41:22 Notes:1 brother - No Known p roblems; Medical History Condition Response Allergies/Hayfever Y Other Y Kidney Stones Y Thyroid Problems Y Depression Y Hypothyroidism Y ADD/ADHD Y Anemia Y Spine Problems [...] completed Ela carcamo, [place] & [place] 09/27/2023 08:17:50 COVID-19, mRNA, LNP-S, PF, 100 mcg/0.5mL dose or 50 mcg/0.25mL dose 1 completed Ela Jonathan null[place] & [place] 09/27/2023 08:17:41 COVID-19, mRNA, LNP-S, PF, 100 mcg/0.5mL dose or 50 mcg/0.25mL dose 1 completed Ela [place], [place] & [place] 09/27/2023 08:17:41 MMR 5 completed Ela [place] 04/03/2024 10:18:10 MMR 5 completed Ela [place] 04/03/2024 10:18:10 RSV, bivalent, protein subunit RSVpreF, diluent reconstituted, 0.5 mL, PF 4 completed Ela [place] 04/03/2024 10:18:10 Tdap 3 completed Ela [place] & [place] 04/03/2024 10:18:10 varicella 5 completed Ela [place] & [place] 04/03/2024 10:18:10 Hep B, adult 5 completed Ela [place] & [place] 04/03/2024 10:18:10 Influenza, split virus, quadrivalent, PF 3 completed Ela [place] & [place] 04/03/2024 10:18:10 Rho(D) - Unspecified formulation 7 completed Isabel [place] & [place] 01/21/2025 11:54:59 Rho(D) - Unspecified formulation 3 completed Isabel [place] 01/21/2025 11:59:29 Past Encounters Encounter ID Performer Location Encounter Start Date Encounter Closed Date Diagnosis/Indication Diagnosis SNOMED-CT Code Diagnosis ICD10 Code Diagnosis Note [id number] Nadia Drummond MD [address] [place] [address] 07/21/2022 13:18:28 07/21/2022 14:14:50 Morbid obesity 699867799 E66.01 Vitamin D deficiency 347 30116 E55.9 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 [id number] Shemar Denton DO [facility] [address] [place] [address] [address] [place] [address] 08/31/2022 07:59:30 08/31/2022 13:37:08 Morbid obesity 990894671 E66.01 Pre-surger y evaluation 733891689 Z01.818 Postoperative pain 37070 9007 G89.18 Polycystic ovary syndrome 069193724 E28.2 [id number] Angelito Estrada DNP, MENAGERIE SUPERINTENDENT, SLD INCLUSION TEACHER-C [facility] [address] [place] [address] [address] [place] [address] 09/27/2022 08:10:32 09/27/2022 11:44:36 Polycystic ovary syndrome 787553029 E28.2 Vitamin D deficiency 347 68024 E55.9 Hypothyroidism 46946377 E03.9 [id number] Nadia Drummond MD [address] [place] [address] 10/03/2022 13:00:09 10/03/2022 13:22:35 Upper respiratory infection 73388128 J06.9 History of bariatric surgical procedure 272182619 Z98.84 Anxiety 36431012 F41.9 Mood disorder 67536283 F 39 [id number] Cecilia Bowman DNP, SLD INCLUSION TEACHER-C, MENAGERIE SUPERINTENDENT [facility] [address] [facility] [place] [address] 10/05/2022 16:13:19 10/05/2022 17:31:36 Pain in throat 650984006 R07.0 Upper resp iratory infection 33536708 J06.9 [id number] Angelito Estrada DNP, MENAGERIE SUPERINTENDENT, SLD INCLUSION TEACHER-C [facility] [address] [facility] [address] [place] [address] 10/18/2022 11:38:25 10/18/2022 12:04:21 History of bariatric surgical procedure 243552349 Z98.84 History of gastrectomy 232177329 Z90.3 Patient is status post bariatric surgery and at increased risk for vitamin deficienci es and malnutriti on. Bariatric vitamin panel ordered today. Patient will be contacted to correct any vitamin deficienci es. Polycystic ovary syndrome 527678492 E28.2 Vitamin D deficiency 347 31506 E55.9 Acquired hypothyroidism 423792269 E03.9 Essential hypertension 89522483 I10 Hypothyroidism 62530255 E03.9 Mixed hyperlipidemia 267 575765 E78.2 Morbid obesity 315302479 E66.01 Intentiona l weight loss 553507505 R63.8 [id number] Angelito Estrada DNP, MENAGERIE SUPERINTENDENT, SLD INCLUSION TEACHER-C [facility] [address] [place] [address] [address] [place] [address] 12/19/2022 11:38:41 12/19/2022 12:48:51 History of bariatric surgical procedure 934566524 Z98.84 History of gastrectomy 577687232 Z90.3 Patient is status post bariatric surgery and at increased risk for vitamin deficienci es and malnutriti on. Bariatric vitamin panel ordered today. Patient will be contacted to correct any vitamin deficienci es. Polycystic ovary syndrome 963041674 E28.2 Acquired hypothyroidism 162266264 E03.9 Essential hypertension 12101118 I10 Hypothyroidism 60262880 E03.9 Intentiona l weight loss 300192660 R63.8 Mixed hyperlipidemia 267 821558 E78.2 Morbid obesity 386363103 E66.01 [id number] Angelito Estrada DNP, MENAGERIE SUPERINTENDENT, SLD INCLUSION TEACHER-C [facility] [address] [facility] [address] [place] [address] 03/28/2023 12:54:58 03/28/2023 13:36:10 History of bariatric surgical procedure 940882973 Z98.84 Advised qid intake 50% protein 6603-9702 calories/d y less than 100 carbs/dy Long [...] will see dietitian today. History of gastrectomy 659186471 Z90.3 Patient is status post bariatric surgery and at increased risk for vitamin deficienci es and malnutriti on. Bariatric vitamin panel ordered today. Patient will be contacted to correct any vitamin deficienci es. Heartburn 71280910 R12 Hypothyroidism 06624671 E03.9 Mixed hyperlipidemia 267 553604 E78.2 Obesity 714051336 E66.9 Vitamin D deficiency 347 71516 E55.9 Polycystic ovary syndrome 890666661 E28.2 Acquired hypothyroidism 006785739 E03.9 Essential hypertension 76823558 I10 [id number] Angelito Estrada, DNP, MENAGERIE SUPERINTENDENT, SLD INCLUSION TEACHER-C [facility] [address] [facility] [address] [place] [address] 02/19/2024 10:07:23 02/19/2024 11:56:17 History of bariatric surgical procedure 818282041 Z98.84 Advised qid intake 50% protein 9964-2779 calories/d y less than 100 carbs/dy Long [...] see dietitian today. Intentiona l weight loss 911012666 R63.8 History of gastrectomy 065457422 Z90.3 Advised qid intake 50% protein 0400-7224 calories/d y (I did encourage her to [...] correct any vitamin deficienci es. Acquired hypothyroidism 892434105 E03.9 Essential hypertension 67807429 I10 Mixed hyperlipidemia 267 428784 E78.2 Fatigue 21335352 R53.[id number], LD [facility] [address] [facility] [place] [address] [place] [address] 02/19/2024 10:49:51 02/19/2024 12:53:58 Morbid obesity 886433916 E66.01 BMI 27.1 wt loss 78.8# Dietary ma nagement surveillance 143449654 Z71.3 [id number] Nadia Drummond MD [facility] [address] [place] [address] 04/03/2024 10:13:26 04/03/2024 11:17:24 Adult health examination 686999216 Z00.00 Diabetes m ellitus screening 344236973 Z13.1 a1c WNL Hyperlipid emia screening 824711956 Z13.220 lipid panel WNL Gastroesop hageal reflux disease 284650941 K21.01 will discuss patient with bariatrics to see if EGD is an option to assess given her sx during and continued worsening reflux presently. Pt is on PPI and h2 batsheva, consider possible dose increase but will discuss case first. Iron defic iency anemia 31114506 D50.9 she may tolerate ritual post- vitamins and will give these a try and she will give me an update Renal mass 283028111 N28 .89 CT from [facility] reviewed, was reviewed and closed by bariatrics discussed with pt, prefers to proceed with MRI at this time depression 58 942433 F53.0 doing well on sertraline [id number] Angelito Estrada, DNP, MENAGERIE SUPERINTENDENT, SLD INCLUSION TEACHER-C [facility] [address] [facility] [address] [place] [address] 01/09/2025 13:18:37 01/09/2025 14:17:30 History of bariatric surgical procedure 436854666 Z98.84 Advised qid intake 50% protein 0321-5935 calories/d y less than 100 carbs/dyLo ng [...] I did michael. Intentiona l weight loss 262680436 R63.8 History of gastrectomy 571970699 Z90.3 Advised qid intake 50% protein 0553-3752 calories/d y less than 100 carbs/dyLo ng [...] to correct any vitamin deficienci es. At [facility] risk of nutritional deficit 435514887 Z91.89 Acquired hypothyroidism 650231292 E03.9 Essential hypertension 21110579 I10 Mixed hyperlipidemia 267 211274 E78.2 Heartburn 15196593 R12 We will follow-up in 1 month regarding symptom management . If symptoms persist will plan on getting at least upper GI with possible EGD with dilatation . Obesity 404380637 E66.9 we will follow up in 1 month. As long as she is doing well with no symptoms we will increase to 5 mg weekly. Patient was given realistic expectatio ns regarding medication regimen. [id number] Angelito Estrada, DNP, MENAGERIE SUPERINTENDENT, SLD INCLUSION TEACHER-C [facility] [address] [facility] [address] [place] [address] 02/06/2025 14:54:48 02/06/2025 15:04:46 History of bariatric surgical procedure 036756968 Z98.84 Advised qid intake 50% protein 5135-8995 calories/d y less than 100 carbs/dy Intentiona l weight loss 730002618 R63.8 History of gastrectomy 277509745 Z90.3 Advised qid intake 50% protein 3455-3125 calories/d y less than 100 carbs/dy At [facility] risk of nutritional deficit 215172802 Z91.89 Acquired hypothyroidism 400501422 E03.9 Essential hypertension 07284259 I10 Mixed hyperlipidemia 267 026195 E78.2 Obesity 957339378 E66.9 we will follow up in 1 [...] smartphone . Provider (Angelito Estrada DNP, APRN, SLD INCLUSION TEACHER-C) location was [address], [address] in [place], [place]. Patient location: her workplace Patient gave [...] of hand washing and social distancing . [id number] Angelito Estrada DNP, DUONG, SLD INCLUSION TEACHER-C [facility] [address] [place], [place] [address] [place] [address] 03/06/2025 13:51:19 03/06/2025 14:15:10 History of bariatric surgical procedure 744409621 Z98.84 Advised qid intake 50% protein 6578-2355 calories/d y less than 100 carbs/dyTo days visit was performed with AUDIO ONLY per patient request. Patient could not be seen utilizing audio/vide o or in person due to patient being in [place], thus this visit was performed at patients request. Reason visit was not performed by video is due to patient not having access to smartphone . Provider (Angelito Estrada DNP, APRN, SLD INCLUSION TEACHER-C) location was [address], [address] in [place]. Patient location: work. Patient gave informed [...] social distancing . Intentiona l weight loss 458354296 R63.8 History of gastrectomy 810610869 Z90.3 Advised qid intake 50% protein 3159-7762 calories/d y less than 100 carbs/dy Follow-up with Repeat SILVIA in 3mth suggested .. At [facility] risk of nutritional deficit 400891173 Z91.89 Acquired hypothyroidism 057015975 E03.9 Obesity 968820409 E66.9 we will follow up in 1 month. I will increase to 7.5 mg weekly. Patient was given realistic expectatio ns regarding medication regimen. [id number] Angelito Estrada, MATTHEW, DUONG, SLD INCLUSION TEACHER-C [facility] [address] [place] [address], [place] [address] 04/04/2025 09:10:59 04/04/2025 10:05:21 History of bariatric surgical procedure 228751931 Z98.84 Advised qid intake 50% protein 4140-1691 calories/d y less than 100 carbs/dyTo days visit was performed with AUDIO ONLY per patient request. Patient could not be seen utilizing audio/vide o or in person due to patient being in [place], thus this visit was performed at patients request. Reason visit was not performed by video is due to patient not having access to smartphone . Provider (Angelito Estrada, MATTHEW, DUONG, SLD INCLUSION TEACHER-C) location was [facility] [address] [place] [address], [address] in [place]. Patient location: work. Patient gave informed [...] hand washing and social distancing . Obesity 885127892 E66.9 we will follow up in 1 month. I will increase to 10 mg weekly. Patient was given realistic expectatio ns regarding medication regimen. Nausea 628086468 R11.0 Health Concerns Section Related Observation LastModified by Organization Detai ls LastModified Time None Recorded Concern Status LastModified by Organization Details LastModified Time None Recorded Advance Directives Directive N: Payers Insurance Date Sequence Insurance Name Policy Number Policy Wilson Covered Member ID Wilson Member ID Guarantor Name 07/30/2019 1 [place] [id number] Jeremiah B Deal [id number] [employer] Deal 05/02/2025 1 [place] [id number] Jeremiah Gallego Deal [id number] [employer] Deal 01/24/2022 2 [facility] [place] - [place] Pam Newell Deal [id number] [employer] Deal 04/08/2021 2 MEDICAID-[facility] CHOICES - FFS/TRADITIONA L Pam Newell Deal [id number] [employer] Deal Notes Date Note Type Note Provider [...] on current dose of zoloft managed by communication manager. Safety: pt wears seat belt, has smoke [...] 10.4. She had a CT ab/pelvis at [facility] on 02/16 that showed a possible area of the left kidney that radiology recommended further imaging, MRI or US. Pt would like to proceed with MRI. Nadia Drummond MD [address], [place], [address], [facility] - [place] - [place] & [place] 04/03/2024 13:07:35 01/09/2025 text/html Patient presents the [...] = 1468 kilo calories Angelito Estrada DNP, MENAGERIE SUPERINTENDENT, SLD INCLUSION TEACHER-C [address] [facility], [place], [address], [facility] & [place] 01/09/2025 14:21:06 02/06/2025 text/html Patient presents the [...] a telehealth appt Angelito Estrada DNP, DUONG, SLD INCLUSION TEACHER-C [address] [facility], [place], [address], [facility] & [place] 02/06/2025 15:12:51 03/06/2025 text/html Patient presents the [...] a telehealth appt Angelito Estrada DNP, DUONG, SLD INCLUSION TEACHER-C [address] [facility], [place], [address], [facility] & [place] 03/06/2025 14:12:43 04/04/2025 text/html Patient presents the [...] a telehealth visit Angelito Estrada DNP, DUONG, SLD INCLUSION TEACHER-C [address] [facility], [place], [address], [facility] [facility] [place] 04/04/2025 09:27:21 OBGyn Episode No OBEpisode recorded.
--- OUTSIDE RECORDS SUMMARY | 2025-05-02 11:11 | XMS_ITS | Encounter Summary ---
Author Organization Healthcare Address [address] [place] [address] Care Team Providers Care Steam Fitter Helper Name Role Phone Pcp, No Primary Care Provider Nadia Todd MD Primary Care Provider [phone] Pcp, No Primary Care Provider Nadia Todd MD Primary Care Provider [phone] Encounter Details Date Type Department Care Team (Late st Contact Info) Description 10/31/2019 Legacy OTTR Encounter Historical OTTR [address] [place] [address] Provider, MD León [address] [place] [address] Social History Tobacco Use Types Packs/Day [...] donor verbalized understanding. * Progress Notes - ProviderLeón MD - 10/31/2019 10:47 AM EST Emailed pt. LDKT questionnaire. documented in this encounter Plan of Treatment Upcoming Encounters Date Type Department Care Team (Late st Contact Info) Description 05/08/2025 10:00 AM EDT Clinical Support Obstetrics & Gynecology [facility] [place] [address] 02/09/2026 8:45 AM EDT Procedure Visit Obstetrics & Gynecology [address] [place] [address] Tres Ybarra MD [address] [place] [address] documented as of this encounter Visit Diagnoses Not on filedocumented in this encounter Care Teams Steam Fitter Helper Relationship Specialty Start Date End Date Pcp, No [address] [place] [address] PCP - General 08/07/21 08/08/21 Nadia Goodson MD [address] [place], [place] [id number] [phone] PCP - General 08/09/21 08/09/21 Pcp, No [address] [place] [address] PCP - General Family Medicine 07/08/22 01/16/23 Nadia Goodson MD [address] [place] [address] PCP - General 01/17/23 documented as of this encounter
--- OUTSIDE RECORDS SUMMARY | 2025-05-02 11:11 | XMS_ITS | Referral Summary ---
Author Organization [employer] In [employer] Address [address] [place] [address] Care Team Providers Care Slat Basket Maker Name Role Phone Unavailable Primary Care Provider [...]
--- OUTSIDE RECORDS SUMMARY | 2025-05-02 11:11 | XMS_ITS | Encounter Summary ---
Author Organization [employer] In [employer] Address [address] [place] [address] Care Team Providers Care Manager File Name Role Phone Unavailable Primary Care Provider Unavailabl e Encounter Details Date Type Department Care Team (Late st Contact Info) Description 11/25/2020 Transcribed Document [facility] [facility] [place] [address] ProviderLeón MD [address] [place] [address] Social History Tobacco Use Types Packs/Day Years Used Date Smoking Tobacco: Never Assessed Comments Unknown Sex and Gender Information Value Date Recorded Sex Assigned at Not on file Legal Sex Female 6:09 PM CDT Gender Identity Not on file Sexual Orientation Not on file documented as of this encounter Miscellaneous Notes * Cerner Conversion Note - Historical ProviderMD - 11/25/2020 3:34 PM TOW OPERATOR documented in this encounter Plan of Treatment Not on file documented as of this encounter Visit Diagnoses Not on filedocumented in this encounter
--- OUTSIDE RECORDS SUMMARY | 2025-05-02 11:11 | XMS_ITS | Encounter Summary ---
Author Organization [employer] iatives Address [address] [place] [address] Care Team Providers Care Chief Librarian Music Department Name Role Phone Unavailable Primary Care Provider Unavailabl e Encounter Details Date Type Department Care Team (Late st Contact Info) Description 11/25/2020 Transcribed Document [facility] [place] [facility] [address] ProviderLeón MD [address] [place] [address] Social History Tobacco Use Types Packs/Day Years Used Date Smoking Tobacco: Never Assessed Comments Unknown Sex and Gender Information Value Date Recorded Sex Assigned at Not on file Legal Sex Female 6:09 PM CDT Gender Identity Not on file Sexual Orientation Not on file documented as of this encounter Miscellaneous Notes * Cerner Conversion Note - León ProviderMD - 11/25/2020 10:52 AM TACTICAL AIR CONTROL PARTY MANAGER ED Assessment Entered On: 11/25/2020 14:03 EST Performed On: 11/25/2020 14:01 EST by LALI SEAY RN ED Quick Look Assessment Level of Consciousness : Alert, Awake Affect/Behavior : Appropriate, Calm, Cooperative Orientation : Oriented x 4 Skin Temperature : Warm Skin Description : Dry, [place] LALI SEAY RN - 11/25/2020 14:01 EST ED General-Functional Assess Information Obtained From : Patient Preferred Communication Mode : Verbal Communication Barrier : None Primary Language : Angolan Any Spiritual/Cultural Needs or Requests : No [...] LALI SEAY RN - 11/25/2020 14:01 EST [place] Coma Canelo Best Motor Response : Obey commands [place] Best Verbal Response : Oriented Canelo Eye Opening Response : Spontaneous [place] Coma Score : 15 LALI SEAY RN - 11/25/2020 14:01 EST documented in this encounter Plan of Treatment Not on file documented as of this encounter Visit Diagnoses Not on filedocumented in this encounter
--- OUTSIDE RECORDS SUMMARY | 2025-05-02 11:11 | XMS_ITS | Encounter Summary ---
Author Organization [employer] Address [address] [place] [address] Care Team Providers Care Necktie Maker Name Role Phone Unavailable Primary Care Provider Unavailabl e Encounter Details Date Type Department Care Team (Late st Contact Info) Description 11/25/2020 Transcribed Document [facility] [place] [facility] [place] [address] ProviderLeón MD [address] [place] [address] Social History Tobacco Use Types Packs/Day Years Used Date Smoking Tobacco: Never Assessed Comments Unknown Sex and Gender Information Value Date Recorded Sex Assigned at Not on file Legal Sex Female 6:09 PM CDT Gender Identity Not on file Sexual Orientation Not on file documented as of this encounter Miscellaneous Notes * Cerner Conversion Note - León ProviderMD - 11/25/2020 10:52 AM FISH RECEIVER ED Triage Entered On: 11/25/2020 11:06 EST Performed On: 11/25/2020 11:03 EST by ALBERTO CHAVES REGULATORY LAW SPECIALIST Triage Across the Room Chief Complaint : pt states NAGY for last 2 days, worst NAGY of life, pressure in back of head, no other symptoms noted, Triage Date/Time : 11/25/2020 11:03 EST ALBERTO CHAVES RN - 11/25/2020 11:03 EST DCP GENERIC CODE Tracking Acuity : 3 - Urgent Tracking Group : [facility] ED ALBERTO CHAVES RN - 11/25/2020 [...] 11/25/2020 11:06:17 EST) Problems(Active) Asthma (SNOMED CT :201956666 ) Name of Problem: Asthma ; Recorder: RAJNI RAMIREZ RN; Confirmation: Confirmed ; Classification: Medical ; Code: 052725886 ; Contributor System: [employer] ; Last Updated: 09/01/2018 18:05 EDT ; Life Cycle Date: 09/01/2018 ; Life Cycle Status: Active ; Vocabulary: SNOMED CT Hypothyroid (SNOMED CT :74061793 ) Name of Problem: Hypothyroid ; Recorder: RAJNI RAMIREZ RN; Confirmation: Confirmed ; Classification: Medical ; Code: [id number] ; Contributor System: [employer]Chart ; Last Updated: 09/01/2018 18:05 EDT ; Life Cycle Date: 09/01/2018 ; Life Cycle Status: Active ; Vocabulary: SNOMED CT PCOS (polycystic ovarian syndrome) (SNOMED CT :056312833 ) Name of Problem: PCOS (polycystic ovarian syndrome) ; Recorder: RAJNI RAMIREZ RN; Confirmation: Confirmed ; Classification: Medical ; Code: [id number] ; Contributor System: [employer] ; Last Updated: 09/01/2018 18:05 EDT ; Life Cycle Date: 09/01/2018 ; Life Cycle Status: Active ; Vocabulary: SNOMED CT Diagnoses(Active) Headache Date: 11/25/2020 ; Diagnosis Type: Reason For Visit ; Confirmation: Complaint of ; Clinical Dx: Headache ; Classification: Medical ; Clinical Service: Emergency medicine ; Code: PNED ; Probability: 0 ; Diagnosis Code: [id number] ED Height and Weight Height Source : Stated Height Entry Format : [place] Height, Feet : 5 ft(Converted to: 152 cm, 60 Inch) Height, Inches : 5 Inch(Converted to: 0 ft 5 Inch, 12.70 cm) Clinical Height : 165.1 cm Weight Source, ED : Critical estimated dosing weight Weight Entry Format : [place] Weight, Pounds : 220 lb Clinical Dosing Weight : 100 kg Body Surface Area (BSA) : 2.06 m2 Body Mass Index : 36.7 kg/m2 (HI) [place] Body Weight (IBW) : 56.59 kg ALBERTO [...]
--- OUTSIDE RECORDS SUMMARY | 2025-05-02 11:11 | XMS_ITS | Encounter Summary ---
Author Organization [employer] Address [address] [place] [address] Care Team Providers Care Shearing Machine Tender Name Role Phone Unavailable Primary Care Provider Unavailabl e Encounter Details Date Type Department Care Team (Late st Contact Info) Description 09/24/2019 Transcribed Document [facility] [place] [address] [place] [address] ProviderLeón MD [facility] [place], [place] [address] Social History Tobacco Use Types Packs/Day Years Used Date Smoking Tobacco: Never Assessed Comments Unknown Sex and Gender Information Value Date Recorded Sex Assigned at Not on file Legal Sex Female 6:09 PM CDT Gender Identity Not on file Sexual Orientation Not on file documented as of this encounter Miscellaneous Notes * Cerner Conversion Note - Historical ProviderMD - 09/24/2019 7:56 AM COSTUMER ASSISTANT Vital Signs ED Entered On: 09/24/2019 8:38 [...]
--- OUTSIDE RECORDS SUMMARY | 2025-05-02 11:11 | XMS_ITS | Encounter Summary ---
Author Organization [employer] In [employer] Address [address] [place] [address] Care Team Providers Care Crew Truck Driver Name Role Phone Unavailable Primary Care Provider Unavailabl e Encounter Details Date Type Department Care Team (Late st Contact Info) Description 11/25/2020 Transcribed Document [facility] [place] [facility] [address] [place] [address] ProviderLeón MD [facility] [place], [place] [address] Social History Tobacco Use Types Packs/Day Years Used Date Smoking Tobacco: Never Assessed Comments Unknown Sex and Gender Information Value Date Recorded Sex Assigned at Not on file Legal Sex Female 6:09 PM CDT Gender Identity Not on file Sexual Orientation Not on file documented as of this encounter Miscellaneous Notes * Cerner Conversion Note - Historical ProviderMD - 11/25/2020 11:11 AM MEDICAL RECORDS CODER ED POC - URINE HCG Entered On: 11/25/2020 14:40 EST Performed On: 11/25/2020 14:20 EST by LALI SEAY RN Point of Care Urine HCG HCG Result : Negative Internal Control Line Present : Yes Internal Control Background Clear : Yes LALI SEAY RN - 11/25/2020 14:39 EST Electronically signed by Jimena [facility] Conversion Golf Course Manager Cerner at 02/19/2023 9:37 AM CDT documented in this encounter Plan of Treatment Not on file documented as of this encounter Visit Diagnoses Not on filedocumented in this encounter
--- OUTSIDE RECORDS SUMMARY | 2025-05-02 11:11 | XMS_ITS | Clinical Summary ---
Author Organization [employer] In i[employer] Address [address] [place] [address] Care Team Providers Care Nuclear Radiation Engineer Name Role Phone Unavailable Primary Care Provider [...]
--- OUTSIDE RECORDS SUMMARY | 2025-05-02 11:11 | XMS_ITS | Encounter Summary ---
Author Organization [employer] Address [address] [place] [address] Care Team Providers Care Health Information Management Director Name Role Phone Unavailable Primary Care Provider Unavailabl e Encounter Details Date Type Department Care Team (Late st Contact Info) Description 11/25/2020 Transcribed Document [facility] Radiology [address] [place] [address] Virgie Armendariz MD One [facility] Dept of [place] [address] Social History Tobacco Use Types Packs/Day Years [...] at maximum was 10 /10. , just LEAD JAVA DEVELOPER ARCHITECT . The degree at present is moderate, [...] EST Height Source Stated Height Entry Format [place] Height/Length, NORWEGIAN (ft) 5 ft Height/Length NORWEGIAN 5 Inch CLINICALHEIGHT 165.1 cm [place] Body Weight 56.59 kg Weight Source, ED Critical estimated dosing weight Weight Entry Format [place] Weight Sammarinese lb 220 lb CLINICALWEIGHT 100 kg Body [...] % 26.1 % Lymph # 2.37 x10(3)/uL Clare % 6.1 % Clare # 0.55 K/uL Eos % 1.3 % Eos # 0.12 x10(3)/uL Baso % 0.3 % Baso # 0.03 x10(3)/uL Slide Review No IG# 0.03 x10(3)/uL IG% 0.30 % . Radiology results: Radiology Results (Last 48 hours) [id number] -- 11/25/2020 10:52 CT Head WO (11/25/2020 [...] instructions. Notes: I certify that the Physician Animal Health Technician performed the services as delegated. I agree with the assessment, treatment plan and disposition of the patient as recorded by the Physician Animal Health Technician. This document was created with [employer] dictation software and unidentified medical imaging director errors may be present.. . documented in this encounter Plan of Treatment Not on file documented as of this encounter Visit Diagnoses Not on filedocumented in this encounter
--- OUTSIDE RECORDS SUMMARY | 2025-05-02 11:11 | XMS_ITS | Data Portability ---
Author Organization [facility]RAIN [facility] [place] [facility] Address [address] [facility] [address] [place] [address] Care Team Providers Care Construction Equipment Mechanic Helper Name Role Phone SOFÍA GOODSON Primary Care Provider [phone] SOFÍA GOODSON Referring Provider Assessment No assessment recorded. Plan of Treatment Reminders Order Date Submit Date Provider Last Modified By Organization Details Last Modified Time Details Appointments None recorded. Lab urinalysis panel, auto 2019 020 [facility] [address], [address] [facility], [place], [address], 0 22:32:25 culture, urine [address] Laboratory, [address] [place] [address], [place], [address], 0 22:32:25 Referral None recorded. Procedures None recorded. Surgeries None recorded. Imaging None recorded. Medication Orders Macrodanti n 50 mg capsule 2019 020 INTERFACE [facility], [address] [place] [address], [facility], [place], [address], 0 17:35:08 Patient TargetsNo targets recorded. Patient Instructions Encounter Date Encounter Id Patient Instructions Last Modified By Organization Details Last Modified Time 01/28/2020 [id number] urine infected today - sx mild only, [...] Clean Catch Not Available Cu/Lc Urolo gy [facility] [address] [facility], [place], [address], 01/28/2020 14:16:01 01/28/20 20 01/28/2020 urina lysis panel , auto Unknown Analyte Yellow Not Available [facility] Urology [address], [address], 01/28/2020 14:16:01 01/28/20 20 01/28/2020 urina lysis panel , auto Unknown Analyte Clear Not Available [facility] Urology [address], [address], 01/28/2020 14:16:01 01/28/20 20 01/28/2020 urina lysis panel , auto Unknown Analyte 1.015 Not Available Cu[facility]Lc Urology [address], [place], [address], 01/28/2020 14:16:01 01/28/20 20 01/28/2020 urina lysis panel , auto Unknown Analyte 5.0 Not Available [facility] Urology [address], [address], 01/28/2020 14:16:01 01/28/20 20 01/28/2020 urina lysis panel , auto Unknown Analyte 500 Derick/ul (++) Not Available Cu/Lc Urolo gy [address], [address], 01/28/2020 14:16:01 01/28/20 20 01/28/2020 urina lysis panel , auto Unknown Analyte Negati ve Not Available Cu/Lc Urolo [address] [facility], [place], [address], 01/28/2020 14:16:01 01/28/20 20 01/28/2020 urina lysis panel , auto Unknown Analyte Negati ve Not Available Cu/Lc Urolo [facility] [address] [place], [address], 01/28/2020 14:16:01 01/28/20 20 01/28/2020 urina lysis panel , auto Unknown Analyte Normal Not Available Cu[facility]Lc Urology [address] [facility], [place], [address], 01/28/2020 14:16:01 01/28/20 20 01/28/2020 urina lysis panel , auto Unknown Analyte Negati ve Not Available Cu/Lc Urolo [address] [facility], [place], [address], 01/28/2020 14:16:01 01/28/20 20 01/28/2020 urina lysis panel , auto Unknown Analyte Normal Not Available [facility] [address] [facility], [place], [address], 01/28/2020 14:16:01 01/28/20 20 01/28/2020 urina lysis panel , auto Unknown Analyte Negati ve Not Available Cu/Lc Urolo [address] [place], [address], 01/28/2020 14:16:01 01/28/20 20 01/28/2020 urina lysis panel , auto Unknown Analyte Negati ve Not Available Cu/Lc Urolo [facility] [address] [place], [address], 01/28/2020 14:16:01 01/28/20 20 01/28/2020 urina lysis panel , auto Unknown Analyte Automa eliud Not Available Cu/Lc Urolo [facility] [address] [place], [address], 01/28/2020 14:16:01 01/28/20 20 01/28/2020 urina lysis panel , auto Unknown Analyte 5 - 10 Not Available [facility] [address] [place], [address], 01/28/2020 14:16:01 01/28/20 20 01/28/2020 urina lysis panel , auto Unknown Analyte None Seen Not Available Cu/Lc Urolo [facility] [address] [facility], [place], [address], 01/28/2020 14:16:01 01/28/20 20 01/28/2020 urina lysis panel , auto Unknown Analyte None Seen Not Available Cu/Lc Urolo [facility] [address] [place], [address], 01/28/2020 14:16:01 01/28/20 20 01/28/2020 urina lysis panel , auto Unknown Analyte 4+ Not Available Cu/Lc Urology [facility] [address] [facility], [place], [address], 01/28/2020 14:16:01 01/28/20 20 01/28/2020 cultu re, urine results Sourc e: CCUR Colle cted: 01/27 14:50 Site: Recei shae : 01/27 19:32 URINE SCREE N(CUL TURE) FINAL 01/29 12:53 01/29 COLON Y COUNT : > 100,0 00 CFU/M L Three or more isola carolina; mixed skin luca . Not Available [facility] [address] [place], [address], 01/30/2020 12:53:25 Result Notes None recorded. Procedures Surgical History Date Name Laterality Status Provider Name and Address Organization Details Recorded Time Tonsillectomy completed [place] Tobias [facility] 01/28/2020 14:04:41 [place] Teeth Extraction completed Sofía Collado [facility] 01/28/2020 14:04:48 Ovarian Cystectomy completed Sofíavasyl sue [facility] 01/28/2020 14:04:55 Imaging Results None recorded. Procedure Notes None recorded. Medical Equipment None Reported. Allergies Allergen ID Allergen Name Allergen Category Reaction Reaction Severity Criticality Documentation Date Start Date Code Code System Note Provider Name and Address Organization Details Recorded Time 429162 amoxicill in medicatio n Not available Not available Not available 01/28/2020 723 RxNorm Sofía Collado [facility] 0 14:00:08 Medications Name [...] Updated DateTime 01/28/2020 165.1 cm 37.4 kg/m2 753133.28 g Sofía Collado [facility] 01/28/2020 13:59:49 Social History Question Answer Notes LastModified by Organizat ion Details LastModified Time Tobacco Smoking Status Never [facility]oker [facility] 01/28/2020 14:04:22 Marital Status Informatio n not [...] Y Thyroid Disorder Y Heart Arrhythmia Y Depression Y Asthma Y Gynecological HistoryNo gynecological history recorded. Obstetrics History GPAL:G 0 P 0 0 0 0 Past Encounters Encounter ID Performer Location Encounter Start Date Encounter Closed Date Diagnosis/Indication Diagnosis SNOMED-CT Code Diagnosis ICD10 Code Diagnosis Note [id number] BELL WALKER MD UROLOGY [facility] [address] [place] [address] 01/28/2020 13:21:02 01/30/2020 10:40:37 Recurrent urinary tract infection 228168165 N39.0 Acute urin jacquie tract infection 469023346 N39.0 Aram hematuria 58975458 5 R31.0 Dyspareunia 18576746 N94 .10 Health Concerns Section Related Observation LastModified by Organization Detai ls LastModified Time None Recorded Concern Status LastModified by Organization Details LastModified Time None Recorded Advance Directives Directive None Recorded Payers Insurance Date Sequence Insurance Name Policy Number Policy Wilson Covered Member ID Wilson Member ID Guarantor Name 01/28/2020 1 [place] [id number] [employer] [id number] EarlySense Deal 03/02/2020 1 [place] [id number] [employer] [id number] [employer] Notes Date Note Type Note Provider Name [...] BELL WALKER MD [facility] [place], [address], [facility] 01/28/2020 17:39:11 OBGyn Episode No OBEpisode recorded.
--- OUTSIDE RECORDS SUMMARY | 2025-05-02 11:12 | XMS_ITS | Encounter Summary ---
Author Organization [employer] Address [address] [place] [address] Care Team Providers Care Furnace Helper Name Role Phone Unavailable Primary Care Provider Unavailabl e Encounter Details Date Type Department Care Team (Late st Contact Info) Description 11/25/2020 Transcribed Document [facility] [place] Family Medicine [address] [place] [address] ProviderLeón MD [address] [place], [place] [address] Social History Tobacco Use Types Packs/Day Years Used Date Smoking Tobacco: Never Assessed Comments Unknown Sex and Gender Information Value Date Recorded Sex Assigned at Not on file Legal Sex Female 6:09 PM CDT Gender Identity Not on file Sexual Orientation Not on file documented as of this encounter Miscellaneous Notes * Cerner Conversion Note - Historical ProviderMD - 11/25/2020 10:52 AM DIRECTOR ZONE Bro[place] Violence Assessment Entered On: 11/25/2020 14:03 EST Performed On: 11/25/2020 14:03 EST by LALI SEAY RN Broset Violence Assessment Broset Violence Checklist of Symptoms : None Broset Violence Symptoms Subtotal : 0 Broset Violence Symptoms Indicator : Low risk (0) LALI SEAY RN - 11/25/2020 14:03 EST Electronically signed by Jimena [facility] Conversion Therapeutic Recreation Assistant Cerner at 02/19/2023 9:42 AM CDT documented in this encounter Plan of Treatment Not on file documented as of this encounter Visit Diagnoses Not on filedocumented in this encounter
--- OUTSIDE RECORDS SUMMARY | 2025-05-02 11:12 | XMS_ITS | Encounter Summary ---
Author Organization [employer] Address [address] [place] [address] Care Team Providers Care Immigration Guard Name Role Phone Unavailable Primary Care Provider Unavailabl e Encounter Details Date Type Department Care Team (Late st Contact Info) Description 11/25/2020 Transcribed Document [facility] [address] [place] [address] ProviderLeón MD [address] [place] [id number] Social History Tobacco Use Types Packs/Day Years Used Date Smoking Tobacco: Never Assessed Comments Unknown Sex and Gender Information Value Date Recorded Sex Assigned at Not on file Legal Sex Female 6:09 PM CDT Gender Identity Not on file Sexual Orientation Not on file documented as of this encounter Miscellaneous Notes * Cerner Conversion Note - León ProviderMD - 11/25/2020 4:12 PM DESKTOP PUBLISHER [facility] [place] [address] PAM FENG :1995 Visit Time:11/25/2020 Your [...] range between ( 0.0 and 7.0 ) [place]al[place] #: 0.55 K/uL -- Normal range between ( 0.16 and 1.00 ) Eos #: 0.12 x10(3)/uL -- Normal range between ( 0.00 and 0.80 ) [place]al[place] %: 6.1 % -- Normal range between [...] instructions at home: Managing pain ??? Take oufa-nsl-fjgapvd and prescription medicines only as told by [...] Reviewed: 02/02/2018 Elsevier Patient Education ?? 2020 Gone!. Emergency Awareness and Preventative Care STROKE is [...] Assistance with quitting is available by contacting 8-645-[employer]BU[employer]. This is a free resource providing counseling, [...] was given the opportunity to ask questions. Patient/Optimization Analyst Name: Patient/Optimization Analyst Signature: Relationship to Patient: Clinician/Hospital Optimization Analyst Signature: Please Provide a Telephone Number Where You Can Be Reached: Is it Permissible To Leave a Message? Date: Electronically signed by Jimena [facility] Conversion Ab Initio Etl Developer Kimberly at 02/19/2023 9:48 AM CDT documented in this encounter Plan of Treatment Not on file documented as of this encounter Visit Diagnoses Not on filedocumented in this encounter
--- OUTSIDE RECORDS SUMMARY | 2025-05-02 11:12 | XMS_ITS | Encounter Summary ---
Author Organization [employer] Address [address] [place] [id number] Care Team Providers Care Generator Man Name Role Phone Unavailable Primary Care Provider Unavailabl e Encounter Details Date Type Department Care Team (Late st Contact Info) Description 09/24/2019 Transcribed Document [facility] [place] [address] ProviderLeón MD [address] [place] [id number] Social History Tobacco Use Types Packs/Day Years Used Date Smoking Tobacco: Never Assessed Comments Unknown Sex and Gender Information Value Date Recorded Sex Assigned at Not on file Legal Sex Female 6:09 PM CDT Gender Identity Not on file Sexual Orientation Not on file documented as of this encounter Miscellaneous Notes * Cerner Conversion Note - León ProviderMD - 09/24/2019 6:15 AM INSURANCE FOLLOW UP SPECIALIST Patient: PAM FENG Age: 24 years Sex: [...] than usual; +abdominal cramping. 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 History of Present Illness 24-year-old female [...] started fertility medication last Monday. Patient sees ceo & board director Chandan Lucas. Patient is with history of [...] EST Height Source Stated Height Entry Format [place] Height/Length, HONDURAN (ft) 5 ft Height/Length HONDURAN 5 Inch CLINICALHEIGHT 165.1 cm [place] Body Weight 56.59 kg Weight Source, ED Standing scale Weight Entry Format [place] Weight [place] lb 220 lb CLINICALWEIGHT 100 [...] Triage: ED C-SSRS: ED Clinical Reconciliation: ED emergency response technician: HCG Urine Qualitative: LENNY Prep: NaCl 0.9% [...] Color Red Urine Appearance Cloudy Urine Specific [place] 1.007 Urine pH Dipstick 5.5 LOW Urine [...] % 27.7 % Lymph # 2.10 K/uL [place]one % 7.9 % [place]oshone # 0.60 K/uL Eos % 4.2 % Eos # 0.32 K/uL Baso % 0.4 % Baso # 0.03 K/uL Slide Review No IG# 0 x10(3)/uL IG% 0 % PT 9.6 Second(s) INR 0.9 PTT 25.4 Second(s) Wet Prep See Result LENNY Prep See Result Specimen Type swab . Radiology results: Radiology Results (Last 48 hours) [id number] -- 09/24/2019 05:36 US Transvaginal Non Ob [...] Rosenda Meyer MD Electronically signed by Jimena [facility] Conversion Clinical Application Specialist Cerner at 02/19/2023 9:58 AM CDT documented in this encounter Plan of Treatment Not on file documented as of this encounter Visit Diagnoses Not on filedocumented in this encounter
--- OUTSIDE RECORDS SUMMARY | 2025-05-02 11:12 | XMS_ITS | Continuity of Care Document ---
Author Organization [place] - [facility] Surg Address [address] [address] [facility] [address] [address] [place] [address] Care Team Providers Care Wing Coverer Name Role Phone SOFÍA VAUGHN Primary Care Provider Assessment No assessment recorded. Plan of Treatment Reminders Order Date Submit Date Provider Last Modified By Organization Details Last Modified Time Details Appointments TELEPHONI C VISIT 15 2024 03:40P Jenise Estrada, DNP, HOSPICE SUPERINTENDENT, ENVIRONMENTAL CONTROL ADMINISTRATOR-C Not available Not available Not available Lab None recorded. Referral None recorded. Procedures None recorded. Surgeries None recorded. Imaging None recorded. Medication Orders Zepbound 10 mg/0.5 mL subcutane ous pen injector 2024 025 [facility], [address] [facility] [address], [place], [address], 04/04/2025 09:24:46 ondansetr on 4 mg disintegr ating tablet 2024 025 [facility], [address] [place] [address], [place], [address], 04/04/2025 09:24:48 Patient TargetsNo targets recorded. Patient InstructionsNo instructions recorded. Reason for Referral None Reported. Results Created Date Observation Date Name Description Value Unit Range Abnormal Flag Note LastModifiedBy Organization Detail LastModifiedTime 05/20/20 25 03/25/2025 XR, knee No observ ation record ed. [email or web address] [facility] [address], [place], [address], 03/27/2025 18:08:14 04/24/20 25 04/24/2025 XR, chest No observ ation record ed. [facility] [address], [place], [address], 04/29/2025 18:06:34 04/24/20 25 04/24/2025 elect mary rodney am No observ ation record ed. [email or web address] [facility] [address], [place], [address], 04/29/2025 18:05:32 Result Notes None recorded. Problems Name Problem SNOMED Code Status Onset Date Resolution Date Notes Provider Name and Address Organization Details Recorded Time Polycystic ovary syndrome 229027826 Active 2021 YONATHAN Anderson [address] , [place], [address] , [place] [facility] [facility] & [place] 2 09:00:55 Vitamin D deficiency 28178462 Active [address] [place], [address] , [place] [facility] [facility] & [place] 2 16:39:55 Laparoscop ic sleeve gastrectom y Active [address], [address] , [place], [address] , [place] [facility] [facility] & [place] 2 16:39:55 Hypothyroi dism 07247628 Active [address], [address] , [place], [address] , [place] [facility] [facility] & [place] 2 16:39:56 Obesity 941732545 Active MUNIR GARCIA [address], [address] , [place], [address] , [place] [facility] [facility] & [place] 2 16:39:55 Acquired hypothyroi dism 290178632 Active MUNIR GARCIA [address], LD [address] [facility], [place], [address] , [place] & [place] 2 16:39:55 Indigestio n 968624489 Active MUNIR G[address], LD [address] [facility], [place], [address] , [place] [facility] [facility] & [place] 2 16:39:55 Disorder of gastrointe stinal tract 913764567 Active MUNIR GARCIA [address], LD [address] [facility], [place], [address] , [place] [facility] & [place] 2 16:39:55 Shoulder strain 565552027 Active MUNIR G[address], LD [address] [facility], [place], [address] , [place] [facility] & [place] 2 16:39:55 Prolactin level above reference range 156349695 Active MUNIR G[address], LD [address] [facility], [place], [address] , [place] [facility] [facility] & [place] 2 16:39:55 Plain X-ray result abnormal 990435012 Active MUNIR G[address], LD [address] [facility], [place], [address] , [place] [facility] & [place] 2 16:39:55 Polycystic ovaries Active MUNIR GARCIA [address], LD [address] [facility], [place], [address] , [place] [facility] & [place] 2 16:39:55 Missed period 00952261 Active [address]UNIR G[address], LD [address] [facility], [place], [address] , [place] [facility] & [place] 2 16:39:55 Mild depression 488958941 Active MUNIR GARCIA [address], LD [address], [place], [address] , [place] [facility] & [place] 2 16:39:55 Stress 67635759 Active MUNIR GARCIA [address], LD [address], [place], [address] , [place] & [place] 2 16:39:55 Mixed hyperlipid emia 530588596 Active MUNIR G[address], LD [address] [facility], [place], [address] , [place] & [place] 2 16:39:55 Liver enzymes level above reference range 022007064 Active MUNIR G[address], LD [address] [facility], [place], [address] , [place] & [place] 2 16:39:55 Recurrent major depressive episodes, moderate 038938897 Active [address]UNIR [address], LD [address] [facility], [place], [address] , [place] & [place] 2 16:39:55 Mood disorder 72796836 Active MUNIR G[address], LD [address] [facility], [place], [address] , [place] & [place] 2 16:39:55 Essential hypertensi on 45741476 Active MUNIR G[address], LD [address] [facility], [place], [address] , [place] [facility] & [place] 2 16:39:55 Steatotic liver disease 000318578 Active MUNIR G[address], LD [address] [facility], [place], [address] , [place] [facility] [place] 2 16:39:55 Dysthymia 38213582 Active MUNIR G[address], LD [address] [facility], [place], [address] , [place] & [place] 2 16:39:55 Thyroid nodule 903906608 Active MUNIR [address], [address] [facility], [place], [address] , [place] [facility] [place] 2 16:39:55 Morbid obesity 703002413 Active MUNIR POTTERMICHAEL G[address], LD [address] [facility], [place], [address] , [place] [facility] [place] 2 16:39:55 Goiter 8518972 Active MUNIR G[address], LD [address] [facility], [place], [address] , [place] [facility] [place] 2 16:39:56 Elevated level of transamina se and lactic acid dehydrogen ase 275658203 Active MUNIR ALISSAMICHAEL G[address], LD [address] [facility], [place], [address] , [place] [facility] [place] 2 16:39:56 Nausea 615882602 Active MUNIR G[address], LD [address] [facility], [place], [address] , [place] [facility] [facility] & [place] 2 16:39:56 Body mass index 30+ - obesity 399039682 Active MUNIR GARCIA [address], LD [address] [facility], [place], [address] , [place] [facility] & [place] 2 16:39:56 Irregular intermenst rual bleeding 53690104 Active MUNIR G[address]IA [address], LD [address] [facility], [place], [address] , [place] [facility] [facility] & [place] 2 16:39:56 Anxiety 94233014 Active MUNIR G[address], LD [address] [facility], [place], [address] , [place] [facility] & [place] 2 16:39:56 Nodule of lung 525943758 Active MUNIR G[address], LD [address] [facility], [place], [address] , [place] [facility] [place] 2 16:39:56 Carpal tunnel syndrome of right wrist 2084817062508 [address], LD [address], [place], [address] , [place] & [place] 2 16:39:56 Abdominal pain 58547176 Active [address]UNIR G[address]IA [address], LD [address], [place], [address] , [place] & [place] 2 16:39:56 Pain in throat 610326381 Active 2021 TREMAYNE CRUZ [place] & [place] 2 17:14:51 Intentiona l weight loss 051333060 Active 2021 Angelito Estrada DNP, HOSPICE SUPERINTENDENT, ENVIRONMENTAL CONTROL ADMINISTRATOR-C [address] [facility], [place], [address] , [place] & [place] 2 11:51:56 Heartburn 59516224 Active 2022 Angelito Estrada DNP, HOSPICE SUPERINTENDENT, ENVIRONMENTAL CONTROL ADMINISTRATOR-C [address] [facility], [place], [address] , [place] & [place] 3 13:15:59 Fatigue 72810925 Active 2023 Angelito Estrada DNP, HOSPICE SUPERINTENDENT, ENVIRONMENTAL CONTROL ADMINISTRATOR-C [address] [facility], [place], [address] , [place] & [place] 4 10:28:55 Problem Notes None recorded. Procedures Surgical History Date Name Laterality Status Provider Name and Address Organization Details Recorded Time 08/06 Laparoscopy completed Isabel Mccord [place] & [place] 5 11:39:58 11/06 Brass Reclaimer Surgery completed Isabel [place]ccord [place] & [place] 5 11:29:41 10/06 Date of Last Pap Smear completed Ela Castillo [place] & [place] 4 11:58:37 09/23 laparoscopic sleeve gastrectomy completed Ana Moya [place] & [place] 2 13:07:03 07/15 esophagogastroduodenoscopy completed Karly da [place] & [place] 5 11:42:14 11/06 Carpal Tunnel Surgery completed Paige [place]choa [place] & [place] 4 15:50:19 06/16 fine needle biopsy of thyroid completed Isabel [place] & [place] 5 11:39:48 02/10 esophagogastroduodenoscopy completed Karly da [place] & [place] 5 11:33:29 11/06 Knee Surgery completed Isabel [place] & [place] 5 11:37:12 11/06 Ovarian Cystectomy completed Isabel [place] & [place] 5 11:37:19 11/06 cholecystectomy completed Paige [place]choa [place] & [place] 4 15:49:18 11/06 extraction of wisdom tooth completed Karly da [place] & [place] 5 11:37:41 11/06 tonsillectomy completed [place]ige [place]choa [place] & [place] 4 15:49:26 11/06 ENT Surgery completed Isabel [place] & [place] 5 11:29:41 Imaging Results None recorded. Procedure Notes None recorded. Medical Equipment None Reported. Allergies Allergen ID Allergen Name Allergen Category Reaction Reaction Severity Criticality Documentation Date Start Date Code Code System Note Provider Name and Address Organization Details Recorded Time 64763 amoxicill in medicatio n nausea rash vomiting Not available Not available Not available low 07/21/2022 723 RxNorm Hever ates cepha lospo rins Isabel Mccord null, [facility] & [place] 5 11:58:46 44483 phentermi ne medicatio n tachycard ia moderate Not available 07/21/[address], [address] , [place], [address], [facility] - NT [facility] & [place] 2 16:40:31 789930 Non-stero idal anti-infl ammatory agent (product) medicatio n other Not available low 08/29/2024 13925 005 SNOMED Cant take with recen t gastr ic sleev e surge ry Isabel Mccord null, [place] - [place] [facility] & [place] 5 11:58:59 59941 Derm-Appl y medicatio n Not available Not available low 08/31/2022 18116 UNK derma cortez Isabel Mccord null, [place] - [place] [facility] & [place] 5 11:59:05 82426 hydrocodo ne Not available rash severe high 08/31/2022 5489 RxNorm Isabel [place], [place] - [facility] & [place] 5 11:58:49 Medications Name Sig Start Date [...] Updated DateTime 04/04/2025 165.1 cm 24.5 kg/m2 89984.08 g Bernie Medina [facility] & [place] 04/04/2025 09:11:54 Social History Question Answer Notes LastModified by Organizat ion Details LastModified Time Tobacco Smoking Status [facility] [place] 07/21/2022 13:33:48 Do You Have An Advance Directive? No [email or web address] Information not available 09/27/2022 Are You Blind Or Do You Have Difficulty Seeing? Yes Information not available 09/27/2022 Are You Deaf Or Do You Have Serious Difficulty Hearing? No Information not available 03/28/2023 What Was The Date Of Your Most Recent Tobacco Screening? 01/09/2025 Information not available 01/21/2025 Are You Passively Exposed To Smoke? No [email or web address] Information not available 09/27/2022 How Much Tobacco Do You Smoke? No Information not available 01/21/2025 How Many Years Have You Smoked Tobacco? 0 Information not available 01/21/2025 Sex: Female Functional Status Question Answer Note LastModified by Organizat ion Details LastModified Time Do you use any illicit or recreational drugs? No [email or web address] Information not available 07/21/2022 Do you or have you ever used any other forms of tobacco or nicotine? No [email or web address] Information not available 03/28/2023 What is your level of alcohol consumption? None [email or web address] Information not available 07/21/2022 Do you or have you ever used smokeless tobacco? Never used smokeless tobacco Information not available 01/21/2025 What is your exercise level? Moderate [email or web address] Information not available 09/27/2022 Mental Status Question Answer Note LastModified by Organization D etails LastModified Time Do you feel stressed (tense, restless, nervous, or anxious, or unable to sleep at night)? [id number] [email or web address] Information not available 09/27/2022 Family History Relationship Description Onset Age of this Age Resolved Age Notes LastModified by Organization Details LastModified Time Mother Diabetes mellitus [email or web address] Not available 02/06 14:55:01 Mother Essential hypertension [email or web address] Not available 14:55:01 Mother Obesity [email or web address] Not available 1 08:41:00 Mother Hyperlipidem ia [email or web address] Not available 02/06 14:55:01 Mother Disease of liver pt. added direct ly (01/09) [email or web address] Not available 01/09/2025 10:35:03 Mother Cirrhosis - non-alcoholi c [email or web address] Not available 02/06 14:55:01 Mother Anemia [email or web address] Not available 01/21/2025 11:57:09 Maternal Grandfather Diabetes mellitus [email or web address] Not available 02/06 14:55:01 Maternal Grandfather Essential hypertension Not available 14:55:01 Maternal Grandfather Coronary arterioscler osis [email or web address] Not available 02/06 14:55:01 Maternal Grandfather Obesity [email or web address] Not available 2023 08:41:17 Maternal Grandfather Hyperlipidem ia [email or web address] Not available 02/06 14:55:01 Maternal Grandfather Myocardial infarction [email or web address] Not available 01/21 11:56:03 Maternal Grandfather Sleep apnea Not available 02/06/2025 14:55:01 Father Essential hypertension [email or web address] Not available 14:55:01 Father Coronary arterioscler osis [email or web address] Not available 02/06 14:55:01 Father Obesity [email or web address] Not available 1 08:41:09 Father Hyperlipidem ia [email or web address] Not available 02/06 14:55:01 Father Heart disease [email or web address] Not available 2024 11:36:37 Father Diabetes mellitus [email or web address] Not available 02/06 14:55:01 Father Myocardial infarction [email or web address] Not available 01/21 11:55:23 Father Kidney disease [email or web address] Not available 2024 11:55:46 Maternal Grandmother Essential hypertension [email or web address] Not available 14:55:01 Maternal Grandmother Obesity [email or web address] Not available 2023 08:41:13 Maternal Grandmother Malignant neoplastic disease [email or web address] Not available 02/06 14:55:01 Paternal Grandmother Obesity [...] Influenza, split virus, quadrivalent, preservative completed Ela Castillo [facility], [place] [facility] & [place] 09/27/2023 08:17:50 COVID-19, mRNA, LNP-S, PF, 100 mcg/0.5mL dose or 50 mcg/0.25mL dose 1 completed Ela Henderson null, [place] [facility] & [place] 09/27/2023 08:17:41 COVID-19, mRNA, LNP-S, PF, 100 mcg/0.5mL dose or 50 mcg/0.25mL dose 1 completed Ela [place] null, [place] & [place] 09/27/2023 08:17:41 MMR 5 completed Ela [place] 04/03/2024 10:18:10 MMR 5 completed Ela Jonathan [place] 04/03/2024 10:18:10 RSV, bivalent, protein subunit RSVpreF, diluent reconstituted, 0.5 mL, PF 4 completed Ela [place], [place] 04/03/2024 10:18:10 Tdap 3 completed Ela [place] 04/03/2024 10:18:10 varicella 5 completed Ela [place] 04/03/2024 10:18:10 Hep B, adult 5 completed Ela [place] 04/03/2024 10:18:10 Influenza, split virus, quadrivalent, PF 3 completed Ela [place] 04/03/2024 10:18:10 Rho(D) - Unspecified formulation 7 completed Isabel [place], [place] & [place] 01/21/2025 11:54:59 Rho(D) - Unspecified formulation 3 completed Isabel [place] 01/21/2025 11:59:29 Past Encounters Encounter ID Performer Location Encounter Start Date Encounter Closed Date Diagnosis/Indication Diagnosis SNOMED-CT Code Diagnosis ICD10 Code Diagnosis Note [id number] Angelito Estrada, MATTHEW, DUONG, ENVIRONMENTAL CONTROL ADMINISTRATOR-C [facility] [address] [place] [address] [address] [place] [address] 03/06/2025 13:51:19 03/06/2025 14:15:10 History of bariatric surgical procedure 111994810 Z98.84 Advised qid intake 50% protein 9275-8874 calories/d y less than 100 carbs/dyTo days visit was performed with AUDIO ONLY per patient request. Patient could not be seen utilizing audio/vide o or in person due to patient being in [place], thus this visit was performed at patients request. Reason visit was not performed by video is due to patient not having access to smartphone . Provider (Angelito Estrada, MATTHEW, DUONG, ENVIRONMENTAL CONTROL ADMINISTRATOR-C) location was [facility] [address] [place] [address], [address] in [place]. Patient location: work. Patient gave informed [...] social distancing . Intentiona l weight loss 190969743 R63.8 History of gastrectomy 411967077 Z90.3 Advised qid intake 50% protein 0474-9481 calories/d y less than 100 carbs/dy Follow-up with Repeat SILVIA in 3mth suggested .. At [facility] risk of nutritional deficit 977147152 Z91.89 Acquired hypothyroidism 173020074 E03.9 Obesity 131643499 E66.9 we will follow up in 1 month. I will increase to 7.5 mg weekly. Patient was given realistic expectatio ns regarding medication regimen. [id number] Angelito Estrada, MATTHEW, DUONG, ENVIRONMENTAL CONTROL ADMINISTRATOR-C [facility] [address] [place] [address] [address] [place] [address] 04/04/2025 09:10:59 04/04/2025 10:05:21 History of bariatric surgical procedure 390079124 Z98.84 Advised qid intake 50% protein 8318-9515 calories/d y less than 100 carbs/dyTo days visit was performed with AUDIO ONLY per patient request. Patient could not be seen utilizing audio/vide o or in person due to patient being in [place], thus this visit was performed at patients request. Reason visit was not performed by video is due to patient not having access to smartphone . Provider (Angelito Estrada, MATTHEW, DUONG, ENVIRONMENTAL CONTROL ADMINISTRATOR-C) location was [facility] [address] [place] [address], [address] in [place]. Patient location: work. Patient gave informed [...] hand washing and social distancing . Obesity 289778092 E66.9 we will follow up in 1 month. I will increase to 10 mg weekly. Patient was given realistic expectatio ns regarding medication regimen. Nausea 883385539 R11.0 Health Concerns Section Related Observation LastModified by Organization Detai ls LastModified Time None Recorded Concern Status LastModified by Organization Details LastModified Time None Recorded Payers Encounter Date Sequence Insurance Name Policy Number Policy Wilson Covered Member ID Wilson Member ID Guarantor Name 04/04/2025 1 [place] [id number] Jeremiah Knowles Deal [id number] Pam Jaime Deal Notes Date Note [...] being a telehealth visit Angelito Estrada, MATTHEW, HOSPICE SUPERINTENDENT, ENVIRONMENTAL CONTROL ADMINISTRATOR-C [address], [place], [address], [facility] - [place] & [place] 04/04/2025 09:27:21 OBGyn Episode No OBEpisode recorded.
--- OUTSIDE RECORDS SUMMARY | 2025-05-02 11:12 | XMS_ITS | Encounter Summary ---
Author Organization [employer] Address [address] [place] [address] Care Team Providers Care Cementer Hand Name Role Phone Unavailable Primary Care Provider Unavailabl e Encounter Details Date Type Department Care Team (Late st Contact Info) Description 09/26/2019 Transcribed Document [facility] Family Medicine [address] [place] [address] ProviderLeón MD [facility] [place], [place] [address] Social History Tobacco Use Types Packs/Day Years Used Date Smoking Tobacco: Never Assessed Comments Unknown Sex and Gender Information Value Date Recorded Sex Assigned at Not on file Legal Sex Female 6:09 PM CDT Gender Identity Not on file Sexual Orientation Not on file documented as of this encounter Miscellaneous Notes * Cerner Conversion Note - Historical ProviderMD - 09/26/2019 11:00 AM LITIGATION ASSISTANT Urine Culture Collected: 09/24/2019 Complete Body site: Specimen Type: U CleanCatch 09/26/2019 09:56 09/26/2019 11:00 (KINGSLEY MEJIA PA-C) Reviewed by Provider, No further action required 3 or more organisms suggesting contamination documented in this encounter Plan of Treatment Not on file documented as of this encounter Visit Diagnoses Not on filedocumented in this encounter
--- OUTSIDE RECORDS SUMMARY | 2025-05-02 11:12 | XMS_ITS | Encounter Summary ---
Author Organization [employer] Address [address] [place] [address] Care Team Providers Care Bottom Crane Operator Name Role Phone Unavailable Primary Care Provider Unavailabl e Encounter Details Date Type Department Care Team (Late st Contact Info) Description 11/25/2020 Transcribed Document [facility] [address] [place] [address] ProviderLeón MD [address] [place], [place] [address] Social History Tobacco Use Types Packs/Day Years Used Date Smoking Tobacco: Never Assessed Comments Unknown Sex and Gender Information Value Date Recorded Sex Assigned at Not on file Legal Sex Female 6:09 PM CDT Gender Identity Not on file Sexual Orientation Not on file documented as of this encounter Miscellaneous Notes * Cerner Conversion Note - Historical ProviderMD - 11/25/2020 10:52 AM CAREER SERVICES REPRESENTATIVE [place] Suicide Severity Rating Scale (C-SSRS) Entered On: 11/25/2020 14:40 EST Performed On: 11/25/2020 14:40 EST by LALI SEAY RN [place] Suicide Severity Rating Scale (C-SSRS) CSSRS Past Month Wish to be : No CSSRS Past Month Suicidal Thoughts : No CSSRS Lifetime Suicide Behavior : No Suicide Severity Rating Score : 0 Suicide Severity Rating : No Additional Care Required at this time LALI SEAY RN - 11/25/2020 14:40 EST Electronically signed by Corey Hess Conversion Learning Operations Specialist Kimberly at 02/19/2023 9:50 AM CDT documented in this encounter Plan of Treatment Not on file documented as of this encounter Visit Diagnoses Not on filedocumented in this encounter
--- OUTSIDE RECORDS SUMMARY | 2025-05-02 11:12 | XMS_ITS | Encounter Summary ---
Author Organization [facility] [employer] [facility] Address [address] [place] [address] Care Team Providers Care Volleyball Assembler Name Role Phone Unavailable Primary Care Provider Unavailabl e Encounter Details Date Type Department Care Team (Late st Contact Info) Description 11/25/2020 Transcribed Document [facility] [address] [place] [address] ProviderLeón MD [address] [place] [id number] Social History Tobacco Use Types Packs/Day Years Used Date Smoking Tobacco: Never Assessed Comments Unknown Sex and Gender Information Value Date Recorded Sex Assigned at Not on file Legal Sex Female 6:09 PM CDT Gender Identity Not on file Sexual Orientation Not on file documented as of this encounter Miscellaneous Notes * Cerner Conversion Note - León ProviderMD - 11/25/2020 4:27 PM OWNER/PHOTOGRAPHER ED Discharge Entered On: 11/25/2020 16:27 EST Performed On: 11/25/2020 16:27 EST by AMBER HANSEN Music Engraver Process Patient Disposition : Discharge Personal Belongings [...] 11/25/2020 16:27 EST Electronically signed by Jimena [facility] Conversion Wood Fuel Pelletizer Cerner at 02/19/2023 9:39 AM CDT documented in this encounter Plan of Treatment Not on file documented as of this encounter Visit Diagnoses Not on filedocumented in this encounter
--- OUTSIDE RECORDS SUMMARY | 2025-05-02 11:13 | XMS_ITS | Continuity of Care Document ---
Author Organization [place] [facility], Located Within [facility] Address [address] [place] [address] Care Team Providers Care Heel Boom Operator Name Role Phone SOFÍA VAUGHN Primary Care Provider Assessment No assessment recorded. Plan of Treatment Reminders Order Date Submit Date Provider Last Modified By Organization Details Last Modified Time Details Appointments TELEPHONI C VISIT 15 2024 03:40P Jenise Estrada, DNP, TIRE FIXER, SPORTS AGENT-C Not available Not available Not available Lab None recorded. Referral None recorded. Procedures None recorded. Surgeries None recorded. Imaging None recorded. Medication Orders Zepbound 7.5 mg/0.5 mL subcutane ous pen injector 2024 025 [facility], [address] [place] [address], [place], [address], 03/06/2025 14:11:55 Patient TargetsNo targets recorded. Patient InstructionsNo instructions recorded. Reason for Referral None Reported. Results Created Date Observation Date Name Description Value Unit Range Abnormal Flag Note LastModifiedBy Organization Detail LastModifiedTime 03/25/2003/25/2025 XR, knee No observ ation record ed. [email or web address] [facility] [address], [place], [address], 03/27/2025 18:08:14 04/24/20 25 04/24/2025 XR, chest No observ ation record ed. [email or web address] [facility] [address], [place], [place], [address], 04/29/2025 18:06:34 04/24/20 25 04/24/2025 bee rodney am No observ ation record ed. [email or web address] [facility] [address], [place], [place], [address], 04/29/2025 18:05:32 Result Notes None recorded. Problems Name Problem SNOMED Code Status Onset Date Resolution Date Notes Provider Name and Address Organization Details Recorded Time Polycystic ovary syndrome 528917538 Active 2021 YONATHAN Anderson [address] , [place], [address] , [place] [facility] [place] 2 09:00:55 Vitamin D deficiency 72255295 Active [address], [address] , [place], [address] , [place] [facility] [facility] [place] 2 16:39:55 Laparoscop ic sleeve gastrectom y Active [address], [address] [facility], [place], [address] , [place] [facility] [facility] [place] 2 16:39:55 Hypothyroi dism 18429926 Active [address], [address] , [place], [address] , [place] [facility] [facility] [place] 2 16:39:56 Obesity 280853412 Active MUNIR GARCIA RD, LD [address] , [place], [address] , [place] [facility] [place] 2 16:39:55 Acquired hypothyroi dism 835424890 Active MUNIR GARCIA RD, LD [address] , [place], [address] , [place] [facility] [place] 2 16:39:55 Indigestio n 942660892 Active MUNIR GARCIA RD, LD [address] [facility], [place], [address] , [place] [facility] [place] 2 16:39:55 Disorder of gastrointe stinal tract 688466648 Active MUNIR [address]WELL RADHA [address], [address] [facility], [place], [address] , [place] [facility] [place] 2 16:39:55 Shoulder strain 322160069 Active MUNIR MAXWELL RADHA [address], LD [address] [facility], [place], [address] , [place] 2 16:39:55 Prolactin level above reference range 775184273 Active MUNIR MAXWELL RADHA [address], LD [address] [facility], [place], [address] , [place] 2 16:39:55 Plain X-ray result abnormal 174760012 Active MUNIR MAXWELL RADHA [address], LD [address] [facility], [place], [address] , [place] 2 16:39:55 Polycystic ovaries Active MUNIR GARCIA RD, LD [address] [facility], [place], [address] , [place] 2 16:39:55 Missed period 82325259 Active MUNIR GARCIA RD, LD [address] [facility], [place], [address] , [place] 2 16:39:55 Mild depression 680349678 Active MUNIR MAXWELL RADHA HULL, LD [address] [facility], [place], [address] , [place] 2 16:39:55 Stress 03810188 Active MUNIR MAXWELL RADHA [address]ULL, LD [address] [facility], [place], [address] , [place] [facility] [place] 2 16:39:55 Mixed hyperlipid emia 969824164 Active MUNIR GARCIA RD, LD [address] [facility], [place], [address] , [place] 2 16:39:55 Liver enzymes level above reference range 162361382 Active MUNIR GARCIA RD, LD [address] [facility], [place], [address] , [place] 2 16:39:55 Recurrent major depressive episodes, moderate 438083287 Active MUNIR GARCIA RD, LD [address] [facility], [place], [address] , [place] 2 16:39:55 Mood disorder 34071100 Active MUNIR GARCIA RD, LD [address] [facility], [place], [address] , [place] [facility] [place] 2 16:39:55 Essential hypertensi on 47279905 Active MUNIR GARCIA RD, LD [address] [facility], [place], [address] , [place] [facility] [place] 2 16:39:55 Steatotic liver disease 279467230 Active MUNIR GARCIA RD, LD [address] [facility], [place], [address] , [place] 2 16:39:55 Dysthymia 60135458 Active MUNIR GARCIA [address], LD [address] [facility], [place], [address] , [place] [facility] [place] 2 16:39:55 Thyroid nodule 369404247 Active MUNIR GARCIA RD, LD [address] [facility], [place], [address] , [place] [facility] [place] 2 16:39:55 Morbid obesity 443898940 Active MUNIR GARCIA RD, LD [address] [facility], [place], [address] , [place] 2 16:39:55 Goiter 3227799 Active MUNIR GARCIA RD, LD [address] [facility], [place], [address] , [place] 2 16:39:56 Elevated level of transamina se and lactic acid dehydrogen ase 871710527 Active MUNIR GARCIA RD, LD [address] [facility], [place], [address] , [place] 2 16:39:56 Nausea 670481048 Active MUNIR GARCIA [address], LD [address] [facility], [place], [address] , [place] 2 16:39:56 Body mass index 30+ - obesity 296188701 Active MUNIR GARCIA RD, LD [address] [facility], [place], [address] , [place] 2 16:39:56 Irregular intermenst rual bleeding 08736396 Active MUNIR GARCIA RD, LD [address] [facility], [place], [address] , [place] [facility] [place] 2 16:39:56 Anxiety 24769099 Active MUNIR GARCIA RD, LD [address] [facility], [place], [address] , [place] [facility] [place] 2 16:39:56 Nodule of lung 608569921 Active MUNIR GARCIA KURTIS, LD [address] [facility], [place], [address] , [place] [facility] [place] 2 16:39:56 Carpal tunnel syndrome of right wrist 8371742518013 [address], LD [address] [facility], [place], [address] , [place] 2 16:39:56 Abdominal pain 05552563 Active MUNIR ALISSALOLY GARCIA RD, LD [address], [place], [address] , [place] 2 16:39:56 Pain in throat 819649054 Active 2021 TREMAYNE RUEDANARENKEMI [place], [place] [facility] [place] 2 17:14:51 Intentiona l weight loss 455802628 Active 2021 Angelito Estrada, MATTHEW, TIRE FIXER, SPORTS AGENT-C [address] , [place], [address] , [place] [facility] [place] 2 11:51:56 Heartburn 37858426 Active 2022 Angelito Estrada DNP, TIRE FIXER, SPORTS AGENT-C [address], [place], [address] , [place] 3 13:15:59 Fatigue 42652868 Active 2023 Angelito Estrada DNP, TIRE FIXER, SPORTS AGENT-C [address] , [place], [address] , [place] 4 10:28:55 Problem Notes None recorded. Procedures Surgical History Date Name Laterality Status Provider Name and Address Organization Details Recorded Time 08/06 Laparoscopy completed Isabel Mccord [place] [facility] [place] 5 11:39:58 11/06 Food General Manager Surgery completed Isabel Mccord [place] [facility] [place] 5 11:29:41 10/06 Date of Last Pap Smear completed Ela Castillo [place] [facility] [place] 4 11:58:37 09/23 laparoscopic sleeve gastrectomy completed Ana Moya [place] [facility] [place] 2 13:07:03 07/15 esophagogastroduodenoscopy completed Karly da [place] [facility] [place] 5 11:42:14 11/06 Carpal Tunnel Surgery completed Paige LEAV[place] - [facility] - [place] & [place] 4 15:50:19 06/16 fine needle biopsy of thyroid completed Isabel [place] [facility] [place] 5 11:39:48 02/10 esophagogastroduodenoscopy completed Karly da [place]amer [place] [facility] [place] 5 11:33:29 11/06 Knee Surgery completed Isabel [place] [facility] [place] 5 11:37:12 11/06 Ovarian Cystectomy completed Isabel [place]amer [place] [facility] [place] 5 11:37:19 11/06 cholecystectomy completed Paige LEAVITT - [facility] [place] 4 15:49:18 11/06 extraction of wisdom tooth completed Karly da [place]amer [place] [facility] [place] 5 11:37:41 11/06 tonsillectomy completed Paige LEAVITT - [place] - [place] & [place] 4 15:49:26 11/06 ENT Surgery completed Isabel [place]amer [place] - [place] - [place] & [place] 5 11:29:41 Imaging Results None recorded. Procedure Notes None recorded. Medical Equipment None Reported. Allergies Allergen ID Allergen Name Allergen Category Reaction Reaction Severity Criticality Documentation Date Start Date Code Code System Note Provider Name and Address Organization Details Recorded Time 66562 amoxicill in medicatio n nausea rash vomiting Not available Not available Not available low 07/21/2022 723 RxNorm Hever ates cepha lospo rins Isabel [place], [place] [facility] [place] 5 11:58:46 03177 phentermi ne medicatio n tachycard ia moderate Not available 07/21/[address], [address] , [place], [address], [facility] - [facility] [place] 2 16:40:31 725956 Non-stero idal anti-infl ammatory agent (product) medicatio n other Not available low 08/29/2024 81675 005 SNOMED Cant take with recen t gastr ic sleev e surge ry Isabel Mccord null, [place] - [facility] [place] 5 11:58:59 26533 Derm-Appl y medicatio n Not available Not available low 08/31/2022 06352 UNK derma cortez Isabel Mccord null, [place] - [facility] [place] 5 11:59:05 66645 hydrocodo ne Not available rash severe high 08/31/2022 5489 RxNorm Isabel Mccord null, [place] - [facility] [place] 5 11:58:49 Medications Name Sig Start Date [...] Updated DateTime 03/06/2025 165.1 cm 25.6 kg/m2 18820.22 g Bernie Medina [facility] & [place] 03/06/2025 13:55:52 Social History Question Answer Notes LastModified by [employer] Details LastModified Time Tobacco Smoking Status Never Smoker Ana [place], [facility] & [place] 07/21/2022 13:33:48 Do You Have An Advance Directive? No Information not available 09/27/2022 Are You Blind Or Do You Have Difficulty Seeing? Yes Information not available 09/27/2022 Are You Deaf Or Do You Have Serious Difficulty Hearing? No [email or web address] Information not available 03/28/2023 What Was The Date Of Your Most Recent Tobacco Screening? 01/09/2025 Information not available 01/21/2025 Are You Passively Exposed To Smoke? No [email or web address] Information not available 09/27/2022 How Much Tobacco Do You Smoke? No Information not available 01/21/2025 How Many Years Have You Smoked Tobacco? 0 Information not available 01/21/2025 Sex: Female Functional Status Question Answer Note LastModified by Organizat ion Details LastModified Time Do you use any illicit or recreational drugs? No [email or web address] Information not available 07/21/2022 Do you or have you ever used any other forms of tobacco or nicotine? No [email or web address] Information not available 03/28/2023 What is your level of alcohol consumption? None [email or web address] Information not available 07/21/2022 Do you or have you ever used smokeless tobacco? Never used smokeless tobacco Information not available 01/21/2025 What is your exercise level? Moderate [email or web address] Information not available 09/27/2022 Mental Status Question Answer Note LastModified by Organization D etails LastModified Time Do you feel stressed (tense, restless, nervous, or anxious, or unable to sleep at night)? [id number] [email or web address] Information not available 09/27/2022 Family History Relationship Description Onset Age of this Age Resolved Age Notes LastModified by Organization Details LastModified Time Mother Diabetes mellitus [email or web address] Not available 02/06 14:55:01 Mother Essential hypertension [email or web address] Not available 14:55:01 Mother Obesity [email or web address] Not available 1 08:41:00 Mother Hyperlipidem ia [email or web address] Not available 02/06 14:55:01 Mother Disease of liver pt. added direct ly (01/09) [email or web address] Not available 01/09/2025 10:35:03 Mother Cirrhosis - non-alcoholi c [email or web address] Not available 02/06 14:55:01 Mother Anemia [email or web address] Not available 01/21/2025 11:57:09 Maternal Grandfather Diabetes mellitus [email or web address] Not available 02/06 14:55:01 Maternal Grandfather Essential hypertension [email or web address] Not available 14:55:01 Maternal Grandfather Coronary arterioscler osis Not available 02/06 14:55:01 Maternal Grandfather Obesity [email or web address] Not available 2023 08:41:17 Maternal Grandfather Hyperlipidem ia Not available 02/06 14:55:01 Maternal Grandfather Myocardial infarction [email or web address] Not available 01/21 11:56:03 Maternal Grandfather Sleep apnea [email or web address] Not available 02/06/2025 14:55:01 Father Essential hypertension [email or web address] Not available 14:55:01 Father Coronary arterioscler osis [email or web address] Not available 02/06 14:55:01 Father Obesity [email or web address] Not available 1 08:41:09 Father Hyperlipidem ia [email or web address] Not available 02/06 14:55:01 Father Heart disease [email or web address] Not available 2024 11:36:37 Father Diabetes mellitus [email or web address] Not available 02/06 14:55:01 Father Myocardial infarction [email or web address] Not available 01/21 11:55:23 Father Kidney disease [email or web address] Not available 2024 11:55:46 Maternal Grandmother Essential hypertension [email or web address] Not available 14:55:01 Maternal Grandmother Obesity [email or web address] Not available 2023 08:41:13 Maternal Grandmother Malignant neoplastic disease [email or web address] Not available 02/06 14:55:01 Paternal Grandmother Obesity [...] Time Influenza, split virus, quadrivalent, preservative completed TREE Reid - [facility] - [facility] 09/27/2023 08:17:50 COVID-19, mRNA, LNP-S, PF, 100 mcg/0.5mL dose or 50 mcg/0.25mL dose completed [place] - [facility] 09/27/2023 08:17:41 COVID-19, mRNA, LNP-S, PF, 100 mcg/0.5mL dose or 50 mcg/0.25mL dose 1 completed Ela Tickfaw null, [place] [facility] [place] 09/27/2023 08:17:41 MMR 5 completed Ela Jonathan [place] 04/03/2024 10:18:10 MMR 5 completed Ela Jonathan [place] 04/03/2024 10:18:10 RSV, bivalent, protein subunit RSVpreF, diluent reconstituted, 0.5 mL, PF 4 completed Ela Tick[place]aw null[place] 04/03/2024 10:18:10 Tdap 3 completed Ela Jonathan [place] 04/03/2024 10:18:10 varicella 5 completed Ela Tickfaw null[place] [facility] [place] 04/03/2024 10:18:10 Hep B, adult 5 completed Ela Jonathan [place] [facility] [place] 04/03/2024 10:18:10 Influenza, split virus, quadrivalent, PF 3 completed Ela Tickfaw null[place] 04/03/2024 10:18:10 Rho(D) - Unspecified formulation 7 completed Isabel [place] [facility] [place] 01/21/2025 11:54:59 Rho(D) - Unspecified formulation 3 completed Isabel [place] 01/21/2025 11:59:29 Past Encounters Encounter ID Performer Location Encounter Start Date Encounter Closed Date Diagnosis/Indication Diagnosis SNOMED-CT Code Diagnosis ICD10 Code Diagnosis Note [id number] Angelito Estrada, DNP, TIRE FIXER, SPORTS AGENT-C [facility] [address] [facility] [address] [place] [address] 02/06/2025 14:54:48 02/06/2025 15:04:46 History of bariatric surgical procedure 428416301 Z98.84 Advised qid intake 50% protein 1012-6960 calories/d y less than 100 carbs/dy Intentiona l weight loss 519279861 R63.8 History of gastrectomy 966652651 Z90.3 Advised qid intake 50% protein 0707-6824 calories/d y less than 100 carbs/dy At [facility] risk of nutritional deficit 306755643 Z91.89 Acquired hypothyroidism 538935385 E03.9 Essential hypertension 58543099 I10 Mixed hyperlipidemia 267 366852 E78.2 Obesity 714407949 E66.9 we will follow up in 1 [...] smartphone . Provider (Angelito Estrada, MATTHEW, DUONG, SPORTS AGENT-C) location was [facility] [address] [place] [address], [address] in [place]. Patient location: her workplace Patient gave [...] of hand washing and social distancing . [id number] Angelito Estrada DNP, DUONG, SPORTS AGENT-C [facility] [address] [facility] [address] [place] [address] 03/06/2025 13:51:19 03/06/2025 14:15:10 History of bariatric surgical procedure 673970260 Z98.84 Advised qid intake 50% protein 3263-9616 calories/d y less than 100 carbs/dyTo days visit was performed with AUDIO ONLY per patient request. Patient could not be seen utilizing audio/vide o or in person due to patient being in [place], [place], thus this visit was performed at patients request. Reason visit was not performed by video is due to patient not having access to smartphone . Provider (Angelito Estrada, MATTHEW, TIRE FIXER, SPORTS AGENT-C) location was [facility] [address] [place] [address], [address] in [place]. Patient location: work. Patient gave informed [...] social distancing . Intentiona l weight loss 857995827 R63.8 History of gastrectomy 014627523 Z90.3 Advised qid intake 50% protein 2807-4610 calories/d y less than 100 carbs/dy Follow-up with Repeat SILVIA in 3mth suggested .. At [facility] risk of nutritional deficit 752724507 Z91.89 Acquired hypothyroidism 591434897 E03.9 Obesity 534218321 E66.9 we will follow up in 1 [...] ID Guarantor Name 03/06/2025 1 [place] [id number] Jeremiah Knowles Deal [id number] Jaime Deal Notes Date Note [...] being a telehealth appt Angelito Estrada, MATTHEW, TIRE FIXER, SPORTS AGENT-C [address] [facility], [place], [address], [facility] - [facility] - [place] & [place] 03/06/2025 14:12:43 OBGyn Episode No OBEpisode recorded.
[2025-05-02 12:06] LABS: HCG,Quantitative 4 mIU/ml (0-5.42)
== END 2025-05-02 23:59 | disposition home or self-care (01) ==
LOC: LAB 11:06
PROVIDERS: PCP Family Medicine; Visit Provider Obstetrics & Gynecology
DX: Z32.01 Encounter for pregnancy test, result positive (principal); N96 Recurrent pregnancy loss
CPT/HCPCS: 36415; 84702

== ENCOUNTER 2025-06-30 10:50 | Outpatient (CLI) | payer BC, SELFPAY ==
--- OUTSIDE RECORDS SUMMARY | 2021-05-03 12:23 | XMS_ITS | Encounter Summary ---
[facility] Address [address] [place] [address] Care Team Providers Care Casino Floorperson Name Role Phone Nadia Drummond MD Primary Care Provider [phone] Reason for Visit * Diagnostic Imaging (Routine) - Closed Specialty Diagnoses / Procedures Referred By Contac t Referred To Contact Radiology Diagnoses Hypothyroidism, unspecified type Procedures US Thyroid Cheri Harden DO [address] [place] [address] Phone: tel: fax: [facility] [address] [place] [address] Phone: tel: fax: Referral ID Status Reason Start Date Expiration Date Visits Re quested Visits Authorized [id number] Closed 05/03/2021 05/03/2022 1 1 Encounter Details Date Type Department Care Team (Late st Contact Info) Description 05/03/2021 12:23 PM EDT Hospital Encounter [facility] [address] [place] [address] Social History Tobacco Use Types [...] documented as of this encounter Care Teams Casino Floorperson Relationship Specialty Start Date End Date Nadia Drummond MD PCP - General Family Medicine 07/15/20 documented as of this encounter
--- OUTSIDE RECORDS SUMMARY | 2022-10-13 10:42 | XMS_ITS | Encounter Summary ---
[facility] Address [address] [place] [address] Care Team Providers Care Electrical Continuity Tester Name Role Phone Nadia Drummond MD Primary Care Provider [phone] Reason for Visit * Diagnostic Imaging (Routine) - Closed Specialty Diagnoses / Procedures Referred By Idalia caruso Referred To Contact Radiology Diagnoses Solitary thyroid nodule Procedures US Thyroid Cheri Harden DO 3084 [employer] [address] [place] [address] Phone: tel: fax: Referral ID Status Reason Start Date Expiration Date Visits Re quested Visits Authorized [id number] Closed 10/13/2022 10/13/2023 1 1 Encounter Details Date Type Department Care Team (Late st Contact Info) Description 10/13/2022 9:42 AM EST Hospital Encounter [facility] ENDOCRINOLOGY 30[address] GamesST [address] [place] [phone] Social History Tobacco Use Types Packs/Day Years [...] 07/2023 Potentially Unsafe Housing Conditions Not on mraina e 08/14/2023 Family and Community Support Answer [...] documented as of this encounter Care Teams Electrical Continuity Tester Relationship Specialty Start Date End Date Nadia Drummond MD PCP - General Family Medicine 07/15/20 documented as of this encounter
--- OUTSIDE RECORDS SUMMARY | 2025-06-07 05:00 | XMS_ITS ---
Author Organization [facility] Address [address] [place] [address] Phone [phone] Care Team Providers Care Trademark Affixer Name Role Phone Page Velásquez Unavailable [phone] Migration, Provider Unavailable Unavailable REASON FOR VISIT EMR-Paul Encounters Encounter Location Date Provider Diagnosis [facility] [address] [place] [address] 06/07/2025 Provider Migration Plan Of Treatment No Information Progress Notes * PARDEEP FENGDOB:1995 (29 yo F)Acc No.[id number]:06/07/2025 Patient: PARDEEP CAST :1995 A ge:29 Y S ex:Female Address:[address] [place] [facility] [address] Subjective: * Chief Complaints: * E MR-Paul * * Date:
--- OUTSIDE RECORDS SUMMARY | 2025-06-30 11:35 | XMS_ITS | Encounter Summary ---
Author Organization [facility] Address [address] [place] [address] Care Team Providers Care Natural Sciences Professor Name Role Phone Nadia Goodson MD Primary Care Provider [phone] Encounter Details Date Type Department Care Team (Late st Contact Info) Description 04/18/2025 Results Follow-Up Obstetrics & Gynecology [address] [place] [address] Tres Ybarra MD [address] [place] [address] Social History Tobacco Use Types Packs/Day Years Used Date Smoking Tobacco: Never Smokeless Tobacco: Never Alcohol Use Standard Drinks/Week Comments No 0 (1 standard drink = 0.6 oz pur e alcohol) PHQ-2 Answer Date Recorded Patient Health Questionnaire-2 Score 0 04/08/2025 [place] Depression Scale Answer Date Recorded [place] Depression Scale Total 0 02/23/2024 The thought [...] EDT Procedure Visit Obstetrics & Gynecology [address] [place] [address] Tres Ybarra MD [address] [place] [address] documented as of this encounter [...] documented as of this encounter Care Teams Natural Sciences Professor Relationship Specialty Start Date End Date Nadia Goodson MD [address] [place] [address] PCP - General 01/17/23 documented as of this encounter
--- OUTSIDE RECORDS SUMMARY | 2025-06-30 11:35 | XMS_ITS | Encounter Summary ---
Author Organization [facility] Address [address] [place] [address] Care Team Providers Care Help Desk Internship Name Role Phone Nadia Goodson MD Primary Care Provider [phone] Encounter Details Date Type Department Care Team (Late st Contact Info) Description 04/29/2025 Results Follow-Up Obstetrics & Gynecology [address] [place] [address] Tres Ybarra MD [address] [place] [address] Social History Tobacco Use Types Packs/Day Years Used Date Smoking Tobacco: Never Smokeless Tobacco: Never Alcohol Use Standard Drinks/Week Comments No 0 (1 standard drink = 0.6 oz pur e alcohol) PHQ-2 Answer Date Recorded Patient Health Questionnaire-2 Score 0 04/08/2025 [place] Depression Scale Answer Date Recorded [place] Depression Scale Total 0 02/23/2024 The thought [...] EDT Procedure Visit Obstetrics & Gynecology [address] [place] [address] Tres Ybarra MD [address] [place] [address] documented as of this encounter [...] documented as of this encounter Care Teams Help Desk Internship Relationship Specialty Start Date End Date Nadia Goodson MD [address] [place] [address] PCP - General 01/17/23 documented as of this encounter
--- OUTSIDE RECORDS SUMMARY | 2025-06-30 11:35 | XMS_ITS | Encounter Summary ---
Author Organization [employer] ([place], [place], [place], [place]) Address [address] [place] [address] Care Team Providers Care Plumber Gasfitter Name Role Phone Unavailable Primary Care Provider Unavailabl e Encounter Details Date Type Department Care Team (Late st Contact Info) Description 09/24/2019 Transcribed Document [facility] Family Medicine [address] [place] [address] ProviderLeón MD [facility] [place] [address] Social History Tobacco Use Types Packs/Day Years Used Date Smoking Tobacco: Never Assessed Comments Unknown Sex and Gender Information Value Date Recorded Sex Assigned at Not on file Legal Sex Female 6:09 PM CDT Gender Identity Not on file Sexual Orientation Not on file documented as of this encounter Miscellaneous Notes * Cerner Conversion Note - León Joseph MD - 09/24/2019 5:36 AM RECREATION TECHNICIAN ED Assessment Entered On: 09/24/2019 6:25 EST Performed On: 09/24/2019 6:24 EST by RENETTA NIXON RN ED Quick Look Assessment Level of Consciousness : Alert, Awake RENETTA NIXON RN - 09/24/2019 6:24 EST ED General-Functional Assess Information Obtained From : Patient Communication Barrier : None Primary Language : Malagasy Any Spiritual/Cultural Needs or Requests : No [...] (Last Updated: 12/23/2017 14:17:18 EST by ETTA DONALD, RN) Alcohol: Alcohol Use History No. (Last Updated: 12/23/2017 14:17:20 EST by ETTA DONALD, RN) Substance Abuse: Drug Use Hx: No. (Last Updated: 12/23/2017 14:17:24 EST by ETTA DONALD, RN) EENT Assessment EENT Assessment WDL : [facility] HUSSAINRENETTA AGUAYO - 09/24/2019 6:24 EST Cardiovascular ASMT, ED Cardiovascular Assessment WDL : [facility] RENETTA NIXON RN - 09/24/2019 6:24 EST Pulses Grid Radial Pulse, Left : 2+ normal Radial Pulse, Right : 2+ normal RENETTA NIXON - 09/24/2019 6:24 EST Respiratory Respiratory Assessment WDL : [facility] RENETTA NIXON RN - 09/24/2019 6:24 EST Breath Sounds Assessment Grid All Lobes Breath Sounds : Clear RENETTA NIXON RN - 09/24/2019 6:24 EST Gastrointestinal ED Gastrointestinal Assessment WDL : WD with exceptions Gastrointestinal Symptoms : Abdominal pain RENETTA NIXON RN - 09/24/2019 6:24 EST Genitourinary Assessment, ED Genitourinary Assessment WDL : [facility] with exceptions Genitourinary Symptoms : Vaginal bleeding RENETTA NIXON RN - 09/24/2019 6:24 EST Musculoskeletal Musculoskeletal Assessment WDL : [facility] RENETTA NIXON RN - 09/24/2019 6:24 EST Integumentary Assessment Integumentary Assessment WDL : [facility] RENETTA NIXON RN - 09/24/2019 6:24 EST Neurologic ASMT, ED Neurologic Assessment WDL : [facility] RENETTA NIXON RN - 09/24/2019 6:24 EST documented in this encounter Plan of Treatment Not on file documented as of this encounter Visit Diagnoses Not on filedocumented in this encounter
--- OUTSIDE RECORDS SUMMARY | 2025-06-30 11:35 | XMS_ITS | Encounter Summary ---
Author Organization [facility] Address [address] [place] [address] Care Team Providers Care Manager Package Name Role Phone Nadia Goodson MD Primary Care Provider Encounter Details Date Type Department Care Team (Late st Contact Info) Description 04/30/2025 Results Follow-Up Obstetrics & Gynecology [address] [place] [address] Tres Ybarra MD [address] [place] [address] Social History Tobacco Use Types Packs/Day Years Used Date Smoking Tobacco: Never Smokeless Tobacco: Never Alcohol Use Standard Drinks/Week Comments No 0 (1 standard drink = 0.6 oz pur e alcohol) PHQ-2 Answer Date Recorded Patient Health Questionnaire-2 Score 0 04/08/2025 [place] Depression Scale Answer Date Recorded [place] Depression Scale Total 0 02/23/2024 The thought [...] EDT Procedure Visit Obstetrics & Gynecology [address] [place] [address] Tres Ybarra MD [address] [place] [address] documented as of this encounter [...] documented as of this encounter Care Teams Manager Package Relationship Specialty Start Date End Date Nadia Goodson MD [address] [place] [address] PCP - General 01/17/23 documented as of this encounter
--- OUTSIDE RECORDS SUMMARY | 2025-06-30 11:35 | XMS_ITS | Encounter Summary ---
Author Organization [employer] ([place], [place], [place], [place]) Address [address] [place] [address] Care Team Providers Care Heritage Consultant Name Role Phone Unavailable Primary Care Provider Unavailabl e Encounter Details Date Type Department Care Team (Late st Contact Info) Description 09/24/2019 Transcribed Document [facility] [place] [address] [place] [address] ProviderLeón MD [address] [place] [address] Social History Tobacco Use Types [...] - Historical ProviderMD - 09/24/2019 5:36 AM QUALITY CONTROL EXPERT [place] Suicide Severity Rating Scale (C-SSRS) Entered On: 09/24/2019 6:25 EST Performed On: 09/24/2019 6:24 EST by RENETTA NIXON RN [place] Suicide Severity Rating Scale (C-SSRS) CSSRS Past [...]
--- OUTSIDE RECORDS SUMMARY | 2025-06-30 11:35 | XMS_ITS | Clinical Summary ---
Author Organization [facility] Address [address] [place] [address] Care Team Providers Care Polysomnography Tech Name Role Phone Nadia Goodson MD Primary Care Provider [phone] Allergies Active Allergy Reactions Criticality Noted Date [...] Support Obstetrics & Gynecology [address] [place] [address] Positive urine test (Primary Dx); Irregular menstruation, unspecified 04/30/2025 Results Follow-Up Obstetrics & Gynecology [address] [place] [address] Tres Ybarra MD 04/30/2025 Travel 04/29/2025 Results Follow-Up Obstetrics & Gynecology [address] [place] [address] Tres Ybarra MD 04/28/2025 1:45 PM EDT Clinical Support Obstetrics & Gynecology [address] [place] [address] Irregular menstruation, unspecified (Primary Dx); Positive urine test 04/28/2025 Travel 04/28/2025 Telephone Obstetrics & Gynecology [address] [place] [address] Tres Ybarra MD 04/18/2025 Results Follow-Up Obstetrics & Gynecology [address] [place] [address] Tres Ybarra MD 04/17/2025 10:00 AM EDT Clinical Support Obstetrics & Gynecology [address] [place] [address] Irregular menstruation, unspecified (Primary Dx) 04/17/2025 Travel 04/14/2025 Telephone Obstetrics & Gynecology [address] [place] [address] Tres Ybarra MD HCN - Patient Message 04/08/2025 2:15 PM EDT Ancillary Procedure Obstetrics & Gynecology [address] [place] [address] Irregular menstruation, unspecified 04/08/2025 2:00 PM EDT Office Visit Obstetrics & Gynecology [address] [place] [address] Tres Ybarra MD Irregular menstruation, unspecified (Primary Dx); Encounter for preconception consultation 04/08/2025 Travel from Last 3 Months Immunizations Immunization [...] Recorded Patient Health Questionnaire-2 Score 0 04/08/2025 [place] Depression Scale Answer Date Recorded [place] Depression Scale Total 0 02/23/2024 The thought [...] Visit Obstetrics & Gynecology [address] [place] [address] Tres Ybarra MD [address] [place] [address] Health Maintenance Due Date Last Done Comments [facility]-Infant/Child/Adol SDOH Screenings 1993 [facility]- SDOH Screenings 2011 [facility]-Adult SDOH Screenings 2011 [facility]-Hepatitis B Vaccines (1 of 3 - 19+ 3-dose series) 2012 [facility]-Varicella Vaccines (2 of 2 - 13+ 2-dose series) 05/27/2015 04/29/2015 HPV Vaccines (1 - 3-dose SCDM series) 2020 [id number] Vaccine (3 - Moderna risk series) 01/06/2021 12/09/2020, 11/11/2020 [facility]-Influenza Vaccine (#1) 2025 07/17/2023 [facility]-Depression Screening 04/08/2026 025, 02/06/2025, 02/23/2024 [facility]-Pap Smear 02/07/2028 02/06/2025, 07/2022, 09/04/2014, Additional history exists [facility]-Cervical Cancer Screening 02/06/2030 [facility]-HPV/Cotest 02/06/2030 02/06/2025, 07/2022, 09/04/2014, Additional history exists [facility]-DTaP,Tdap,and Td [...] menstrual period) as reason for ultrasound scan from Last 3 Months or Most Recently Relevant to Health Maintenance Results * (ABNORMAL) hCG, Total Beta, Quantitative, Plasma (04/30/2025 10:10 AM EDT) Only the most recent of2 resultswithin the time period is included. hCG, Total Beta 18.2(H) <5 mIU/mL 04/30/2025 1:38 PM EDT [facility] Blood Venous blood specimen / Unknown Venipuncture / Unknown 04/30/2025 10:10 AM EDT 04/30/2025 12:54 PM EDT Narrative [facility] - 04/30/2025 1:38 PM EDT [...] MD LAB BLOOD ORDERABLES Final Resu lt [facility] [address] [place] [address] * Progesterone (04/28/2025 2:12 PM EDT) Only the most recent of2 resultswithin the time period is included. Progesterone III 12.7 Reference Range not established ng/mL 04/28/2025 6:28 PM EDT [facility] Blood Venous blood specimen / Unknown Venipuncture / Unknown 04/28/2025 2:12 PM EDT 04/28/2025 5:50 PM EDT Narrative [facility] - 04/28/2025 6:28 PM EDT Menstrual Cycle Phase Reference Intervals: Females, 18 Y and up (ng/mL) Follicular <= 0.33 Ovulation <= 2.35 Luteal 0.5-21 Post-Menopausal <0.2 reference Intervals (ng/mL): 1st Trimester 11 - 45 2nd Trimester 25 - 84 3rd Trimester 58 - 214 Result Mary Ybarra MD LAB BLOOD ORDERABLES Final Resu lt Performing Organization Address [facility] [place] [address] * Thyroid Stimulating Hormone, Plasma (04/17/2025 10:40 AM EDT) Thyroid Stimulating Hormone, Plasma 2.90 0.40 - 4.20 uIU/mL 04/17/2025 6:39 PM EDT [facility] Blood Venous blood specimen / Unknown Venipuncture / Unknown 04/17/2025 10:40 AM EDT 04/17/2025 5:57 PM EDT Narrative [facility] - 04/17/2025 6:39 PM EDT Trimester Specific Ranges TSH ( IU/mL) 1st Trimester 0.1 - 3.0 2nd Trimester 0.19 - 4.06 3rd Trimester 0.3 - 3.7 Result Mary Ybarra MD LAB BLOOD ORDERABLES Final Resu Performing Organization Address [facility] [place] [address] * Free T4, Plasma (04/17/2025 10:40 AM EDT) Free T4, Plasma 1.2 0.8 - 1.7 ng/dL 04/17/2025 6:39 PM EDT [facility] Blood Venous blood specimen / Unknown Venipuncture / Unknown 04/17/2025 10:40 AM EDT 04/17/2025 5:57 PM EDT Narrative [facility] - 04/17/2025 6:39 PM EDT Free T4 Trimester Specific Ranges 1st Trimester 0.9 - 1.50 ng/dL 2nd Trimester 0.7 - 1.40 ng/dL 3rd Trimester 0.7 - 1.24 ng/dL us Tres Ybarra MD LAB BLOOD ORDERABLES Final Resu lt [facility] [address] [place] [address] * US Pelvis Transvaginal (04/08/2025 2:12 PM EDT) Anatomical Region Laterality Modality Pelvis Ultrasound 04/08/2025 2:20 PM EDT Impressions 04/08/2025 2:24 PM EDT The OB Ultrasound you requested has been resulted. Please navigate to the Imaging tab in [employer] for review. This message has been generated by the interface. Narrative Procedure Note Tres Ybarra MD - 04/08/2025 IMPRESSION: The OB Ultrasound you requested has been resulted. Please navigate to theImaging tab in [employer] for review. This message has been generated by theinterface. Result Mary Ybarra MD IMG US PROCEDURES Final Result * Referred ThinPrep Pap and HPV (SO) (02/06/2025 8:23 AM EDT) Pap, Source Cx/Vagina 02/13/2025 12:50 PM EDT [facility] ([employer]) EER Referred ThinPrep Pap and HPV See Note 02/13/2025 12:50 PM EDT [facility] ([employer]) PAP, THINPREP Normal 02/13/2025 12:50 PM EDT [facility] ([employer]) High Risk HPV Normal 02/13/2025 12:50 PM EDT [facility] ([employer]) Swab Vaginal and cervical cytologic material / Unknown Non-blood Collection / Unknown 02/06/2025 8:23 AM EDT 02/06/2025 12:54 PM EDT Narrative [facility] ([employer]) - 02/13/2025 12:50 PM EDT Authorized individuals can access the [facility] Enhanced Report with an [facility] Connect account using the following link. Your local lab can assist you in obtaining the patient report if you don't have a Connect account. [email or web address] Performed By: [facility] [address] [place] [address] Trauma Registrar: Thompson Correa MD, PhD CLIA Number: [id number] SPECIMEN PART A. Cervical, Endocervical, Vaginal, ThinPrep Pap (Manager Internship) CYTOLOGY HX Date of Last Menstrual Period: N FINAL DIAGNOSIS INTERPRETATION: Negative for Intraepithelial Lesion or Malignancy. SPECIMEN ADEQUACY:Satisfactory for evaluation. Endocervical/transformation zone component present. Electronically Signed Out : [email or web address] Performed by: imeem Mallory [address] [place] [address] [place] [address] Desire Alvarez MD, HR-HPV: Negative Test performed by the FDA-approved [employer] (Gen-Probe) APTIMA HPV test, which detects HPV genotypes: 16, 18, 31, 33, 35, 39, 45, 51, 52, 56, 58, 59, 66, and 68. This assay has been cleared for the specimen types listed below. Other specimen types have not been validated for this assay. -Clinician-collected ThinPrep Pap specimens. Performed by: imeem Mallory [address] [place] [address] [place] [address] Desire Alvarez MD, us Tres Ybarra MD LAB REF LAB BLOOD AND FLUID ORD Final Result [facility] ([facility]) [address] [place] [id number] * HIV 1 & 2 Antibody/Antigen Screen [...] ORDERABLES Final Resu lt Performing Organization Address [facility] Co de Phone Number [facility] [address] [place] [address] * Hepatitis C Antibody (05/29/2023 10:20 AM EDT) Hepatitis C Antibody Negative Negative 05/29/2023 2:02 PM EDT [facility] Blood Venous blood specimen / Unknown Venipuncture / Unknown 05/29/2023 10:20 AM EDT 05/29/2023 1:01 PM EDT Result Mary Ybarra MD LAB BLOOD ORDERABLES Final Resu lt Performing Organization Address [facility] Phone Number [facility] [address] [place] [address] from Last 3 Months or Most Recently Relevant to Health Maintenance Insurance [facility] Advance Directives * Full Code (Latest Code Status on File) Date Activated Date Inactivated Comments 08/09/2021 8:28 PM 08/10/2021 1:42 PM Question Answer Comments Patient has decision-making capacity? Yes * Full Code Date Activated Date Inactivated Comments 08/08/2021 3:47 AM 08/09/2021 12:51 AM Question Answer Comments Patient has decision-making capacity? Yes Care Teams Polysomnography Tech Relationship Specialty Start Date End Date Nadia Goodson MD [facility] [place] [address] PCP - General 01/17/23
--- OUTSIDE RECORDS SUMMARY | 2025-06-30 11:35 | XMS_ITS | Encounter Summary ---
Author Organization [employer] ([place], [place], [place], [place]) Address [address] [place] [address] Care Team Providers Care Netting Inspector Name Role Phone Unavailable Primary Care Provider Unavailabl e Encounter Details Date Type Department Care Team (Late st Contact Info) Description 09/24/2019 Transcribed Document [facility] [place] [address] [place] [address] ProviderLeón MD [address] [place] [address] Social History Tobacco Use Types Packs/Day Years Used Date Smoking Tobacco: Never Assessed Comments Unknown Sex and Gender Information Value Date Recorded Sex Assigned at Not on file Legal Sex Female 6:09 PM CDT Gender Identity Not on file Sexual Orientation Not on file documented as of this encounter Miscellaneous Notes * Cerner Conversion Note - León Joseph MD - 09/24/2019 8:33 AM OTR VAN CDL TRUCK DRIVER Pain Assessment Entered On: 09/24/2019 9:40 EST Performed On: 09/24/2019 9:40 EST by GENTRY CLARK RN Intervention Information: ibuprofen Performed by GENTRY CLARK RN on 09/24/2019 08:39:00 EST ibuprofen,600mg Oral Pain Assessment Pain Assessment : Follow-up assessment Pain Improved by Intervention : Yes GENTRY CLARK RN - 09/24/2019 9:40 EST Electronically signed by Errol Hess Conversion Color Television Console Monitor Cerner at 02/19/2023 9:41 AM CDT documented in this encounter Plan of Treatment Not on file documented as of this encounter Visit Diagnoses Not on filedocumented in this encounter
--- OUTSIDE RECORDS SUMMARY | 2025-06-30 11:36 | XMS_ITS | Encounter Summary ---
Author Organization [employer] ([place], [place], [place], [place]) Address [address] [place] [address] Care Team Providers Care Assistive Technology Specialist Name Role Phone Unavailable Primary Care Provider Unavailabl e Encounter Details Date Type Department Care Team (Late st Contact Info) Description 09/24/2019 Transcribed Document [facility] [place] [address] [place] [address] ProviderLeón MD [address] [place] [address] Social History Tobacco Use Types [...] - Historical ProviderMD - 09/24/2019 7:56 AM ASSOCIATE MEDICAL DIRECTOR Vital Signs ED Entered On: 09/24/2019 [...] bpm DEE DREW - 09/24/2019 8:33 EST Electronically signed by Errol Hess Conversion Blow Machine Tender Starch Spraying Cerner at 02/19/2023 9:56 AM CDT documented in this encounter Plan of Treatment Not on file documented as of this encounter Visit Diagnoses Not on filedocumented in this encounter
--- OUTSIDE RECORDS SUMMARY | 2025-06-30 11:36 | XMS_ITS | Clinical Summary ---
Author Organization [employer] ([place], [place], [place], [place]) Address [address] [place] [address] Care Team Providers Care Health Care Coordinator Name Role Phone Unavailable Primary Care Provider [...]
--- OUTSIDE RECORDS SUMMARY | 2025-06-30 11:36 | XMS_ITS | Referral Summary ---
Author Organization [employer] ([place], [place], [place], [place]) Address [address] [place] [address] Care Team Providers Care Hand Frame Surgical Elastic Knitter Name Role Phone Unavailable Primary Care Provider [...]
--- OUTSIDE RECORDS SUMMARY | 2025-06-30 11:36 | XMS_ITS | Encounter Summary ---
Author Organization [employer] ([place], [place], [place], [place]) Address [address] [place] [address] Care Team Providers Care Physical Aerodynamicist Name Role Phone Unavailable Primary Care Provider Unavailabl e Encounter Details Date Type Department Care Team (Late st Contact Info) Description 11/25/2020 Transcribed Document [facility] Radiology [address] [place] [address] Virgie Armendariz MD [facility] Dept of [place] [address] Social History Tobacco Use Types Packs/Day Years [...] at maximum was 10 /10. , just ACID CONCENTRATOR . The degree at present is moderate, [...] EST Height Source Stated Height Entry Format Enders Height/Length, [place] (ft) 5 ft Height/Length [place] 5 Inch CLINICALHEIGHT 165.1 cm [place] Body Weight 56.59 kg Weight Source, ED Critical estimated dosing weight Weight Entry Format Enders Weight Greek lb 220 lb CLINICALWEIGHT 100 kg Body [...] % 26.1 % Lymph # 2.37 x10(3)/uL [place] % 6.1 % [place] # 0.55 K/uL Eos % 1.3 % Eos # 0.12 x10(3)/uL Baso % 0.3 % Baso # 0.03 x10(3)/uL Slide Review No IG# 0.03 x10(3)/uL IG% 0.30 % . Radiology results: Radiology Results (Last 48 hours) [id number] -- 11/25/2020 10:52 CT Head WO (11/25/2020 [...] instructions. Notes: I certify that the Physician Supply Clerk performed the services as delegated. I agree with the assessment, treatment plan and disposition of the patient as recorded by the Physician Supply Clerk. This document was created with [employer] dictation software and unidentified single needle operator errors may be present.. . documented in this encounter Plan of Treatment Not on file documented as of this encounter Visit Diagnoses Not on filedocumented in this encounter
--- OUTSIDE RECORDS SUMMARY | 2025-06-30 11:36 | XMS_ITS | Encounter Summary ---
Author Organization [facility] Address [address] [place] [address] Care Team Providers Care Corporate Treasury Analyst Name Role Phone Pcp, No Primary Care Provider Nadia Todd MD Primary Care Provider [phone] Pcp, No Primary Care Provider Nadia Todd MD Primary Care Provider [phone] Encounter Details Date Type Department Care Team (Late st Contact Info) Description 10/31/2019 [facility] Encounter Historical [facility] [address] [place] [address] Provider, [address] [address] Social History Tobacco Use Types Packs/Day [...] EDT Procedure Visit Obstetrics & Gynecology [address] [place] [address] Tres Ybarra MD [address] [place] [address] documented as of this encounter Visit Diagnoses Not on filedocumented in this encounter Care Teams Corporate Treasury Analyst Relationship Specialty Start Date End Date Pcp, No [address] [place] [address] PCP - General 08/07/21 08/08/21 Nadia Goodson MD [address] [place] [address] PCP - General 08/09/21 08/09/21 Pcp, No [address] [place] [address] PCP - General Family Medicine 07/08/22 01/16/23 Nadia Goodson MD [address] [place] [address] PCP - General 01/17/23 documented as of this encounter
--- OUTSIDE RECORDS SUMMARY | 2025-06-30 11:36 | XMS_ITS | Patient Health Record ---
Author Organization [facility] Address [address] [facility] [address] [place] [address] Care Team Providers Care Mechanical Assembler Name Role Phone Maggie Tenorio [phone] Allergies Allergen (clinical drug ingredient) Drug/Non Drug Allergy documented on EMR Reaction Allergy Type Onset Date Status amoxicillin AMOXICILLIN (uncoded) Unspecified Allergy 12/2019 Active Reason For Referral No Information Social History Social History Additional Details Category Social Info Options Details Miscellaneous: Sexually active: SEXUAL AC TIV: Current Problems Problem Type SNOMED Code ICD Code Onset Dates Problem Status W/U Status Risk Notes Problem Bloody vaginal discharge (N89.8) 02/02/2021 Active confirmed Vaginal odor Plan Of Treatment No Information Medical (General) History Medical History History ICD Code Abnormal Pap Anxiety Asthma Bipolar Disorder Depression Fibrocystic Breasts Fibroid Uterine Hyperthyroid Infertility Mastitis Obesity PCOS UTI Yeast Infections OCELLA 3-0.03 MG ORAL TABLET, ORAL FLAGYL 500 MG ORAL TABLET, ORAL METFORMIN HCL ER 750 MG ORAL TABLET EXTE NDED RELEASE 24 HOUR, ORAL SERTRALINE HCL TABLET Surgical History Surgery Date(Month/Year) Tonsillectomy Gallbladder Removed Ovarian Cyst Removed Left knee scope
--- OUTSIDE RECORDS SUMMARY | 2025-06-30 11:36 | XMS_ITS | Encounter Summary ---
Author Organization [facility] Address [address] [place] [id number] Care Team Providers Care Corporate Scheduler Name Role Phone Pcp, No Primary Care Provider Nadia Todd MD Primary Care Provider [phone] Pcp, No Primary Care Provider Nadia Todd MD Primary Care Provider [phone] Encounter Details Date Type Department Care Team (Late Contact Info) Description 11/05/2019 [facility] Committee Historical OT[facility] [address] [place] [address] Marla Sin, RN [id number] [address] [place] [address] Social History Tobacco Use Types Packs/Day Years [...] EDT Procedure Visit Obstetrics & Gynecology [address] [place] [address] Tres Ybarra MD [address] [place] [address] documented as of this encounter Visit Diagnoses Not on filedocumented in this encounter Care Teams Corporate Scheduler Relationship Specialty Start Date End Date Pcp, No [address] [place] [address] PCP - General 08/07/21 08/08/21 Nadia Goodson MD [address] [place], [place] [id number] PCP - General 08/09/21 08/09/21 Pcp, No [address] [place] [address] PCP - General Family Medicine 07/08/22 01/16/23 Nadia Goodson MD [address] [place] [address] PCP - General 01/17/23 documented as of this encounter
--- OUTSIDE RECORDS SUMMARY | 2025-06-30 11:36 | XMS_ITS | Encounter Summary ---
Author Organization [employer] ([place], [place], [place], [place]) Address [address] [place] [address] Care Team Providers Care Investment Manager Name Role Phone Unavailable Primary Care Provider Unavailabl e Encounter Details Date Type Department Care Team (Late st Contact Info) Description 11/25/2020 Transcribed Document [facility] [place] [facility] [address] ProviderLeón [place] [address] Social History Tobacco Use Types [...] - León ProviderMD - 11/25/2020 10:52 AM RUG UNDERLAY MACHINE OPERATOR ED Triage Entered On: 11/25/2020 11:06 EST Performed On: 11/25/2020 11:03 EST by ALBERTO CHAVES ELECTRIC ARC WELDER Triage Across the Room Chief Complaint : pt states NAGY for last 2 days, worst NAGY of life, pressure in back of head, no other symptoms noted, Triage Date/Time : 11/25/2020 11:03 EST ALBERTO CHAVES RN - 11/25/2020 11:03 EST DCP GENERIC CODE Tracking Acuity : 3 - Urgent Tracking Group : [facility] ED ALBERTO CHAVES RN - 11/25/2020 11:03 [...] 11/25/2020 11:06:17 EST) Problems(Active) Asthma (SNOMED CT :522658243 ) Name of Problem: Asthma ; Recorder: RAJNI RAMIREZ RN; Confirmation: Confirmed ; Classification: Medical ; Code: [id number] ; Contributor System: PowerChart ; Last Updated: 09/01/2018 18:05 EDT ; Life Cycle Date: 09/01/2018 ; Life Cycle Status: Active ; Vocabulary: SNOMED CT Hypothyroid (SNOMED CT :70704416 ) Name of Problem: Hypothyroid ; Recorder: RAJNI RAMIREZ RN; Confirmation: Confirmed ; Classification: Medical ; Code: [id number] ; Contributor System: LimeRoadChart ; Last Updated: 09/01/2018 18:05 EDT ; Life Cycle Date: 09/01/2018 ; Life Cycle Status: Active ; Vocabulary: SNOMED CT PCOS (polycystic ovarian syndrome) (SNOMED CT :227606845 ) Name of Problem: PCOS (polycystic ovarian syndrome) ; Recorder: RAJNI RAMIREZ RN; Confirmation: Confirmed ; Classification: Medical ; Code: [id number] ; Contributor System: [employer] ; Last Updated: 09/01/2018 18:05 EDT ; Life Cycle Date: 09/01/2018 ; Life Cycle Status: Active ; Vocabulary: SNOMED CT Diagnoses(Active) Headache Date: 11/25/2020 ; Diagnosis Type: Reason For Visit ; Confirmation: Complaint of ; Clinical Dx: Headache ; Classification: Medical ; Clinical Service: Emergency medicine ; Code: PNED ; Probability: 0 ; Diagnosis Code: [id number] ED Height and Weight Height Source : Stated Height Entry Format : [place] Height, Feet : 5 ft(Converted to: 152 cm, 60 Inch) Height, Inches : 5 Inch(Converted to: 0 ft 5 Inch, 12.70 cm) Clinical Height : 165.1 cm Weight Source, ED : Critical estimated dosing weight Weight Entry Format : [place] Weight, Pounds : 220 lb Clinical Dosing Weight : 100 kg Body Surface Area (BSA) : 2.06 m2 Body Mass Index : 36.7 kg/m2 (HI) [place] Body Weight (IBW) : 56.59 kg ALBERTO [...]
--- OUTSIDE RECORDS SUMMARY | 2025-06-30 11:36 | XMS_ITS | Encounter Summary ---
Author Organization [employer] ([place], [place], [place], [place]) Address [address] [place] [address] Care Team Providers Care Customer Support Representative Name Role Phone Unavailable Primary Care Provider Unavailabl e Encounter Details Date Type Department Care Team (Late st Contact Info) Description 11/25/2020 Transcribed Document [facility] [place] [facility] [place] [address] ProviderLeón MD [address] [place] [address] Social History Tobacco Use Types [...] - Historical ProviderMD - 11/25/2020 3:34 PM SVP OPERATIONS Electronically signed by Jimena [facility] Conversion Bottle Cleaner Cerner at 02/19/2023 9:52 AM CDT documented in this encounter Plan of Treatment Not on file documented as of this encounter Visit Diagnoses Not on filedocumented in this encounter
--- OUTSIDE RECORDS SUMMARY | 2025-06-30 11:36 | XMS_ITS | Encounter Summary ---
Author Organization [employer] ([place], [place], [place], [place]) Address [address] [place] [address] Care Team Providers Care Electrician Sound Name Role Phone Unavailable Primary Care Provider Unavailabl e Encounter Details Date Type Department Care Team (Late st Contact Info) Description 09/24/2019 Transcribed Document [facility] [place] Family Medicine [address] [place] [address] ProviderLeón MD [address] [place] [address] Social History Tobacco Use Types [...] León Joseph MD - 09/24/2019 10:05 AM SPARK PLUG ASSEMBLER [place] [id number] PAM FENG :1995 Visit Time:09/24/2019 Your Visit [...] fever and or persistent vomiting. Where: [facility] [address] [place] [address]- [facility] (1) Allergies amoxicillin (C/O - vomiting) [...] range between ( 1.0 and 7.0 ) [place] #: 0.60 K/uL -- Normal range between ( 0.24 and 0.82 ) Eos #: 0.32 K/uL -- Normal range between ( 0.04 and 0.54 ) [place] %: 7.9 % -- Normal range between [...] ) Urine Bilirubin Dipstick: Negative Urine Specific [place]: 1.007 -- Normal range between ( 1.005 [...] 10/23/2006 Document Revised: 11/24/2017 Document Reviewed: 11/24/2017 worldhistoryproject Interactive Patient Education ?? 2019 ImmunoGen. Emergency Awareness and Preventative Care STROKE is [...] Assistance with quitting is available by contacting 0-153-CGCA-NOW. This is a free resource providing counseling, [...] was given the opportunity to ask questions. Patient/Business Continuity Manager Name: Patient/Business Continuity Manager Signature: Relationship to Patient: Clinician/Hospital Business Continuity Manager Signature: Please Provide a Telephone Number Where You Can Be Reached: Is it Permissible To Leave a Message? Date: documented in this encounter Plan of Treatment Not on file documented as of this encounter Visit Diagnoses Not on filedocumented in this encounter
--- OUTSIDE RECORDS SUMMARY | 2025-06-30 11:36 | XMS_ITS | Encounter Summary ---
Author Organization [employer] ([place], [place], [place], [place]) Address [address] [place] [address] Care Team Providers Care Solar Installation Technician Name Role Phone Unavailable Primary Care Provider Unavailabl e Encounter Details Date Type Department Care Team (Late st Contact Info) Description 09/24/2019 Transcribed Document [facility] [place] [address] [place] [address] ProviderLeón MD [address] [place] [address] Social History Tobacco Use Types [...] - Historical ProviderMD - 09/24/2019 9:17 AM JIG INSPECTOR documented in this encounter Plan of Treatment Not on file documented as of this encounter Visit Diagnoses Not on filedocumented in this encounter
--- OUTSIDE RECORDS SUMMARY | 2025-06-30 11:36 | XMS_ITS | Encounter Summary ---
Author Organization [employer] ([place], [place], [place], [place]) Address [address] [place] [address] Care Team Providers Care Lumber Loader Name Role Phone Unavailable Primary Care Provider Unavailabl e Encounter Details Date Type Department Care Team (Late st Contact Info) Description 11/25/2020 Transcribed Document [facility] [place] [address] [place] [address] ProviderLeón MD [facility] [address] Social History Tobacco Use Types [...] - León ProviderMD - 11/25/2020 10:52 AM THIRD MATE ED Assessment Entered On: 11/25/2020 14:03 EST Performed On: 11/25/2020 14:01 EST by LALI SEAY RN ED Quick Look Assessment Level of Consciousness : Alert, Awake Affect/Behavior : Appropriate, Calm, Cooperative Orientation : Oriented x 4 Skin Temperature : Warm Skin Description : Dry, [place] LALI SEAY RN - 11/25/2020 14:01 EST ED General-Functional Assess Information Obtained From : Patient Preferred Communication Mode : Verbal Communication Barrier : None Primary Language : Cameroonian Any Spiritual/Cultural Needs or Requests : No [...] Neurologic ASMT, ED Neurologic Assessment WDL : MADI with exceptions Neurological Symptoms : Dizziness, Headache [...] LALI SEAY RN - 11/25/2020 14:01 EST Canelo Coma [place] Best Motor Response : Obey commands [place] Best Verbal Response : Oriented [place] Eye Opening Response : Spontaneous [place] Coma Score : 15 LALI SEAY RN - 11/25/2020 14:01 EST Electronically signed by Jimena [facility] Conversion Vertical Punch Operator Cerner at 02/19/2023 10:00 AM CDT documented in this encounter Plan of Treatment Not on file documented as of this encounter Visit Diagnoses Not on filedocumented in this encounter
--- OUTSIDE RECORDS SUMMARY | 2025-06-30 11:36 | XMS_ITS | Encounter Summary ---
Author Organization [employer] ([place], [place], [place], [place]) Address [address] [place] [address] Care Team Providers Care Spark Plug Tester Name Role Phone Unavailable Primary Care Provider Unavailabl e Encounter Details Date Type Department Care Team (Late st Contact Info) Description 09/24/2019 Transcribed Document [facility] [place] [facility] [place] [address] ProviderLeón MD [facility] [place] [address] Social History Tobacco Use Types [...] - León ProviderMD - 09/24/2019 5:36 AM MANGLE TENDER CLOTH ED Triage Entered On: 09/24/2019 5:47 EST Performed On: 09/24/2019 5:42 EST by MINDI WONG CHERRY GROWER Triage Across the Room Triage Date/Time : 09/24/2019 5:42 EST Chief Complaint : Pt c/o fever and vaginal bleeding x2 days. Pt stated she is on her period but the bleeding is more than usual; +abdominal cramping. No med taken STORAGE WHARFAGE CLERK MINDI WONG, RN - 09/24/2019 5:42 EST MINDI WONG RN - 09/24/2019 5:42 EST DCP GENERIC CODE Tracking Group : [facility] ED [place] MINDI WONG RN - 09/24/2019 [...] ; Type: Intolerance ; Updated By: Tim Prescott Pharmacist; Reviewed Date: 09/24/2019 5:44 EST Diagnosis Control ED (As Of: 09/24/2019 05:47:35 EST) Problems(Active) Asthma (SNOMED CT :505080819 ) Name of Problem: Asthma ; Recorder: RAJNI RAMIREZ RN; Confirmation: Confirmed ; Classification: Medical ; Code: [id number] ; Contributor System: BookingPalChart ; Last Updated: 09/01/2018 18:05 EDT ; Life Cycle Date: 09/01/2018 ; Life Cycle Status: Active ; Vocabulary: SNOMED CT Hypothyroid (SNOMED CT :35030300 ) Name of Problem: Hypothyroid ; Recorder: RAJNI RAMIREZ RN; Confirmation: Confirmed ; Classification: Medical ; Code: 81056833 ; Contributor System: PowerChart ; Last Updated: 09/01/2018 18:05 EDT ; Life Cycle Date: 09/01/2018 ; Life Cycle Status: Active ; Vocabulary: SNOMED CT PCOS (polycystic ovarian syndrome) (SNOMED CT :496375342 ) Name of Problem: PCOS (polycystic ovarian syndrome) ; Recorder: RAJNI RAMIREZ RN; Confirmation: Confirmed ; Classification: Medical ; Code: [id number] ; Contributor System: addwish ; Last Updated: 09/01/2018 18:05 EDT ; Life Cycle Date: 09/01/2018 ; Life Cycle Status: Active ; Vocabulary: SNOMED CT Diagnoses(Active) Abdominal pain Date: 09/24/2019 ; Diagnosis Type: Reason For Visit ; Confirmation: Complaint of ; Clinical Dx: Abdominal pain ; Classification: Medical ; Clinical Service: Emergency medicine ; Code: PNED ; Probability: 0 ; Diagnosis Code: [id number] Fever Date: 09/24/2019 ; Diagnosis Type: Reason For Visit ; Confirmation: Complaint of ; Clinical Dx: Fever ; Classification: Medical ; Clinical Service: Emergency medicine ; Code: PNED ; Probability: 0 ; Diagnosis Code: [id number] Vaginal bleeding Date: 09/24/2019 ; Diagnosis Type: Reason For Visit ; Confirmation: Complaint of ; Clinical Dx: Vaginal bleeding ; Classification: Medical ; Clinical Service: Emergency medicine ; Code: PNED ; Probability: 0 ; Diagnosis Code: [id number] ED Height and Weight Height Source : Stated Height Entry Format : [place] Height, Feet : 5 ft(Converted to: 152 cm, 60 Inch) Height, Inches : 5 Inch(Converted to: 0 ft 5 Inch, 12.70 cm) Clinical Height : 165.1 cm Weight Source, ED : Standing scale Weight Entry Format : [place] Weight, Pounds : 220 lb Clinical Dosing Weight : 100 kg Body Surface Area (BSA) : 2.06 m2 Body Mass Index : 36.7 kg/m2 (HI) [place] Body Weight (IBW) : 56.59 kg MINDI [...] - 09/24/2019 5:42 EST Electronically signed by [facility] Conversion Senior Trainer Cerner at 02/19/2023 9:39 AM CDT documented in this encounter Plan of Treatment Not on file documented as of this encounter Visit Diagnoses Not on filedocumented in this encounter
--- OUTSIDE RECORDS SUMMARY | 2025-06-30 11:37 | XMS_ITS | Encounter Summary ---
Author Organization [employer] ([place], [place], [place], [place]) Address [address] [place] [address] Care Team Providers Care Landscape Contractor Name Role Phone Unavailable Primary Care Provider Unavailabl e Encounter Details Date Type Department Care Team (Late st Contact Info) Description 11/25/2020 Transcribed Document [facility] [place] [address] [place] [address] ProviderLeón MD [address] [place] [address] Social History Tobacco Use Types [...] - Historical ProviderMD - 11/25/2020 10:52 AM WELT SOLE LAYER [place] Suicide Severity Rating Scale (C-SSRS) Entered On: 11/25/2020 14:40 EST Performed On: 11/25/2020 14:40 EST by LALI SEAY RN [place] Suicide Severity Rating Scale (C-SSRS) CSSRS Past [...]
--- OUTSIDE RECORDS SUMMARY | 2025-06-30 11:37 | XMS_ITS | Encounter Summary ---
Author Organization [employer] ([place], [place], [place], [place]) Address [address] [place] [address] Care Team Providers Care Press Operator Assistant Name Role Phone Unavailable Primary Care Provider Unavailabl e Encounter Details Date Type Department Care Team (Late st Contact Info) Description 11/25/2020 Transcribed Document [facility] [place] [address] [place] [address] ProviderLeón MD [address] [place] [address] Social History Tobacco Use Types [...] - Historical ProviderMD - 11/25/2020 10:52 AM PHYSICALLY IMPAIRED TEACHER [place] Violence Assessment Entered On: 11/25/2020 14:03 EST Performed On: 11/25/2020 14:03 EST by LALI SEAY RN [place] Violence Assessment [place] Violence Checklist of Symptoms : None [place] Violence Symptoms Subtotal : 0 [place] Violence Symptoms Indicator : Low risk (0) LALI SEAY RN - 11/25/2020 14:03 EST documented in this encounter Plan of Treatment Not on file documented as of this encounter Visit Diagnoses Not on filedocumented in this encounter
--- OUTSIDE RECORDS SUMMARY | 2025-06-30 11:37 | XMS_ITS | Encounter Summary ---
Author Organization [employer] ([place], [place], [place], [place]) Address [address] [place] [address] Care Team Providers Care Motor And Generator Brush Maker Name Role Phone Unavailable Primary Care Provider Unavailabl e Encounter Details Date Type Department Care Team (Late st Contact Info) Description 09/26/2019 Transcribed Document [facility] [place] [address] [place] [address] ProviderLeón MD [address] [place] [address] Social History Tobacco Use Types [...] - Historical ProviderMD - 09/26/2019 11:00 AM WATER CHEMIST Urine Culture Collected: 09/24/2019 Complete Body site: Specimen Type: U CleanCatch 09/26/2019 09:56 09/26/2019 11:00 (KINGSLEY MEJIA PA-C) Reviewed by Provider, No further action required 3 or more organisms suggesting contamination documented in this encounter Plan of Treatment Not on file documented as of this encounter Visit Diagnoses Not on filedocumented in this encounter
--- OUTSIDE RECORDS SUMMARY | 2025-06-30 11:37 | XMS_ITS | Encounter Summary ---
Author Organization [employer] ([place], [place], [place], [place]) Address [address] [place] [address] Care Team Providers Care Overhead Crane Inspector Name Role Phone Unavailable Primary Care Provider Unavailabl e Encounter Details Date Type Department Care Team (Late st Contact Info) Description 11/25/2020 Transcribed Document [facility] [place] [facility] [place] [address] ProviderLeón MD [facility] [place] [address] Social History Tobacco Use Types [...] - León ProviderMD - 11/25/2020 4:27 PM CHIP CRUSHER OPERATOR ED Discharge Entered On: 11/25/2020 16:27 EST Performed On: 11/25/2020 16:27 EST by AMBER HANSEN Rn Discharge Process Patient Disposition : Discharge Personal Belongings [...] 11/25/2020 16:27 EST Electronically signed by Jimena [facility] Conversion Youth Program Director Cerner at 02/19/2023 9:39 AM CDT documented in this encounter Plan of Treatment Not on file documented as of this encounter Visit Diagnoses Not on filedocumented in this encounter
--- OUTSIDE RECORDS SUMMARY | 2025-06-30 11:37 | XMS_ITS | Encounter Summary ---
Author Organization [employer] ([place], [place], [place], [place]) Address [address] [place] [address] Care Team Providers Care Bench Shear Operator Name Role Phone Unavailable Primary Care Provider Unavailabl e Encounter Details Date Type Department Care Team (Late st Contact Info) Description 09/24/2019 Transcribed Document [facility] [place] [facility] [place] [address] ProviderLeón MD [facility] [place] [address] Social History Tobacco Use Types [...] - Historical ProviderMD - 09/24/2019 6:15 AM FLOOR LAYER TILE Patient: PAM FENG Age: 24 years Sex: [...] than usual; +abdominal cramping. 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 History of Present Illness 24-year-old female [...] started fertility medication last Monday. Patient sees television news photographer Chandan Lucas. Patient is with history of [...] EST Height Source Stated Height Entry Format [place] Height/Length, LATVIAN (ft) 5 ft Height/Length LATVIAN 5 Inch CLINICALHEIGHT 165.1 cm [place] Body Weight 56.59 kg Weight Source, ED Standing scale Weight Entry Format [place] Weight Maced[place] lb 220 lb CLINICALWEIGHT 100 kg Body [...] Orders InProcess (In Process) Chlamydia Trachomatis/[facility], Sendout: Ordered Discharge: Ordered (In-Lab) Culture Urine: Completed .Automated Differential: .Urinalysis Microscopic: CBC w/ Auto Diff: CMP Comprehensive Metabolic Panel: ED Adult Fall Risk Assessment: ED Adult Triage: ED C-SSRS: ED Clinical Reconciliation: ED wind turbine mechanical engineer: HCG Urine Qualitative: LENNY Prep: NaCl 0.9% [...] Color Red Urine Appearance Cloudy Urine Specific [place] 1.007 Urine pH Dipstick 5.5 LOW Urine [...] % 27.7 % Lymph # 2.10 K/uL [place]ama % 7.9 % [place] # 0.60 K/uL Eos % 4.2 % Eos # 0.32 K/uL Baso % 0.4 % Baso # 0.03 K/uL Slide Review No IG# 0 x10(3)/uL IG% 0 % PT 9.6 Second(s) INR 0.9 PTT 25.4 Second(s) Wet Prep See Result LENNY Prep See Result Specimen Type swab . Radiology results: Radiology Results (Last 48 hours) [id number] -- 09/24/2019 05:36 US Transvaginal Non Ob [...]
--- OUTSIDE RECORDS SUMMARY | 2025-06-30 11:37 | XMS_ITS | Encounter Summary ---
Author Organization [employer] ([place], [place], [place], [place]) Address [address] [place] [address] Care Team Providers Care Guest Relation Officer Name Role Phone Unavailable Primary Care Provider Unavailabl e Encounter Details Date Type Department Care Team (Late st Contact Info) Description 11/25/[address] [facility] [place] Family Medicine [address] [place] [address] ProviderLeón MD [address] [place] [address] Social History Tobacco Use Types Packs/Day Years Used Date Smoking Tobacco: Never Assessed Comments Unknown Sex and Gender Information Value Date Recorded Sex Assigned at Not on file Legal Sex Female 6:09 PM CDT Gender Identity Not on file Sexual Orientation Not on file documented as of this encounter Miscellaneous Notes * Cerner Conversion Note - León Joseph MD - 11/25/2020 4:12 PM LINE PATROLLER [facility] [place] [address] PAM FENG :1995 Visit Time:11/25/2020 [...] range between ( 0.0 and 7.0 ) [place] #: 0.55 K/uL -- Normal range between ( 0.16 and 1.00 ) [place]os #: 0.12 x10(3)/uL -- Normal range between ( 0.00 and 0.80 ) [place] %: 6.1 % -- Normal range between [...] instructions at home: Managing pain ??? Take gzfc-ldl-tngxuje and prescription medicines only as told by [...] Reviewed: 02/02/2018 Elsevier Patient Education ?? 2020 enosiX. Emergency Awareness and Preventative Care STROKE is [...] Assistance with quitting is available by contacting 0-653-XLZYEditoriallyNOW. This is a free resource providing counseling, [...] including: emergency, radiology, or pathology physicians. Patient Name:JUNG PAM ZENDEJAS I have received this information and was given the opportunity to ask questions. Patient/Shot Bagger Name: Patient/Shot Bagger Signature: Relationship to Patient: Clinician/Hospital Shot Bagger Signature: Please Provide a Telephone Number Where You Can Be Reached: Is it Permissible To Leave a Message? Date: documented in this encounter Plan of Treatment Not on file documented as of this encounter Visit Diagnoses Not on filedocumented in this encounter
--- OUTSIDE RECORDS SUMMARY | 2025-06-30 11:37 | XMS_ITS | Encounter Summary ---
Author Organization [employer] ([place], [place], [place], [place]) Address [address] [place] [address] Care Team Providers Care Chief Airport Guide Name Role Phone Unavailable Primary Care Provider Unavailabl e Encounter Details Date Type Department Care Team (Late st Contact Info) Description 11/25/2020 Transcribed Document [facility] [place] Family [place] [address] [place] [address] ProviderLeón MD [address] [place] [address] Social History Tobacco Use Types [...] - Historical ProviderMD - 11/25/2020 11:11 AM SPRAYER AUTOMATIC SPRAY MACHINE ED POC - URINE HCG Entered On: 11/25/2020 14:40 EST Performed On: 11/25/2020 14:20 EST by LALI SEAY RN Point of Care Urine HCG HCG Result : Negative Internal Control Line Present : Yes Internal Control Background Clear : Yes LALI SEAY RN - 11/25/2020 14:39 EST Electronically signed by Jimena [facility] Conversion Veneer Stacker Cerner at 02/19/2023 9:37 AM CDT documented in this encounter Plan of Treatment Not on file documented as of this encounter Visit Diagnoses Not on filedocumented in this encounter
--- OUTSIDE RECORDS SUMMARY | 2025-06-30 11:37 | XMS_ITS | Clinical Summary ---
Author Organization [facility] Address [address] [place] [address] Care Team Providers Care Control Area Operator Name Role Phone Nadia Drummond MD Primary Care Provider [phone] Allergies Active Allergy Reactions Criticality Noted Date Comments Amoxicillin Nausea Only 05/31/2017 Tolerates cephalosporins Hydrocodone Rash High 05/03/2021 Has tolerated other pain meds in the past Medications famotidine (PEPCID) 20 MG tablet Take 1 tablet by mouth 2 (Two) Times a Day. 3 Active promethazine (PHENERGAN) 6.25 MG half tablet Take 1 half tablet by mouth Every 6 (Six) Hours As Needed. Active omeprazole (priLOSEC) 20 MG capsule Take 1 capsule by mouth Daily. 3 Active ondansetron ODT (ZOFRAN-ODT) [address] 1 tablet on the tongue Every 8 (Eight) Hours As Needed. 3 Active levothyroxine (Synthroid) 50 MCG tabletIndications:A cquired hypothyroidism Take 1 tablet by mouth Daily. 30 tablet 3 4 Active Active Problems Problem Noted Date Diagnosed Date Asthma 02/15/2022 Overview (02/15/2022): rescue inhaler Bipolar 1 disorder 02/15/2022 Attention deficit hyperactiv ity disorder (ADHD), combined type 02/15/2022 Back pain 02/15/2022 Fatty liver 02/15/2022 Overview (02/15/2022): bx 2017 HLD (hyperlipidemia) 02/15/2022 HTN (hypertension) 02/15/2022 Hypothyroidism 02/15/2022 Insulin resistance 02/15/2022 Iron deficiency anemia 02/15/2022 Kidney stone 02/15/2022 PCOS (polycystic ovarian syndrome) 06/08/2020 Class 2 obesity due to exces s calories without serious comorbidity with body mass index (BMI) of 39.0 to 39.9 in adult 06/08/2020 Anxiety and depression 06/08/2020 Palpitations 07/25/2017 Overview (07/25/2017): Normal EKG, 07/25/17 Assessment & Plan (07/25/2017 2:00 PM EDT): The patient has long-standing history of palpitations which have increased with , as would be expected. Since states that her thyroid function tests were essentially normal recently. I expect her heart to be structurally normal but will obtain an echocardiogram to confirm this. If normal, reassurance will be given and no further testing will be performed during her . If she were to continue to have symptoms after , I would consider 14 day Holter monitoring. Resolved Problems Problem Noted Date Diagnosed Date Resolved Date with abdominal jun n of left lower quadrant, antepartum 10/31/2017 06/08/2020 Chest wall pain 07/25/2017 06/08/2020 Overview (07/25/2017): Normal EKG, 07/25/17 Assessment & Plan (07/25/2017 2:02 PM EDT): Her symptomatology is atypical for angina and the patient is an extremely low risk for obstructive coronary artery disease. I reassured her today. Because of her , she cannot take nonsteroidals. I recommended Tylenol if needed. Immunizations Immunization Administration Dates Next Due Rho (D) Immune Globulin 05/31/2017 Family History Medical History Relation Name Comments No Known Problems Brother Diabetes Father Anam Heart attack Father Anam Hypertension Father Anam Kidney disease Father Anam Obesity Father Anam Diabetes Maternal Grandfather Aren Heart attack Maternal Grandfather Aren Hypertension Maternal Grandfather Aren Obesity Maternal Grandfather Aren Sleep apnea Maternal Grandfather Aren Cancer Maternal Grandmother Yvette Obesity Maternal Grandmother Yvette Anemia Mother Caitlin Diabetes Mother Caitlin Hypertension Mother Caitlin Liver disease Mother Caitlin Obesity Mother Caitlin Obesity Paternal Grandmother Rosemary Relation Name Status Comments Brother Alive Father Anam Alive Maternal Grandfather Aren Maternal Grandmother Yvette Mother Caitlin Alive Paternal Grandfather Paternal Grandmother Rosemary Social History Tobacco Use Types Packs/Day Years Used Date Smoking Tobacco: Never Smokeless Tobacco: Never Tobacco Cessation:Counseling Given: Not Answered Alcohol Use Standard Drinks/Week Comments Not Currently [...] Sign Reading Time Taken Comments Blood Pressure 122/74 09/13/2023 3:38 PM EST Pulse 95 09/13/2023 3:38 PM EST Temperature 36.9 C (98.5 F) 02/15/2022 10:06 AM EDT Respiratory Rate 18 02/15/2022 10:06 AM EDT Oxygen Saturation 99% 09/13/2023 3:38 PM EST Inhaled Oxygen Concentration - - Weight 82.1 kg (181 lb) 09/13/2023 3:38 PM EST Height 165.1 cm (5' 5 ) 09/13/2023 3:38 PM EST Body Mass Index 30.12 09/13/2023 3:38 PM EST Plan of Treatment Health Maintenance Due Date Last Done Comments Annual Gynecologic Pelvic and Breast Exam 1993 Pneumococcal Vaccine 0-49 (1 of 2 - PCV) 2012 TDAP/TD VACCINES (1 - Tdap) 2012 PAP SMEAR 2014 ANNUAL PHYSICAL 05/31/2017 LIPID PANEL 02/15/2023 02/15/2022, 04/07/2020 COVID-19 Vaccine ( season) 07/07/202401/2021, 11/11/2020 INFLUENZA VACCINE 08/06/2025 07/17/2023 HEPATITIS C SCREENING Completed 05/29/2023 Procedures Procedure Name Priority Date/Time Associated Diagnosis Comments LIPID PANEL Routine 02/15/2022 12:21 PM EDT PCOS (polycystic ovarian syndrome) Class 2 obesity due to excess calories without serious comorbidity with body mass index (BMI) of 39.0 to 39.9 in adult Anxiety and depression Bipolar 1 disorder Asthma, unspecified asthma severity, unspecified whether complicated, unspecified whether persistent Hypothyroidism, unspecified type Hyperlipidemia, unspecified hyperlipidemia type Hypertension, unspecified type Fatty liver Iron deficiency anemia, unspecified iron deficiency anemia type from Last 3 Months or Most Recently Relevant to Health Maintenance Results * (ABNORMAL) Lipid Panel (02/15/2022 12:21 PM EDT) Total Cholesterol 169 100 - 199 mg/dL [facility] Triglycerides 203(H) 0 - 149 mg/dL [facility] HDL Cholesterol 42 >39 mg/dL [facility] VLDL Cholesterol Salvador 35 5 - 40 mg/dL [facility] LDL Chol Calc (NIH) 92 0 - 99 mg/dL [facility] Blood 02/15/2022 12:2 1 PM EDT 02/15/2022 Narrative [facility] ([facility]) - 02/16/2022 3:08 PM EDT Performed at: 01 - [facility] [address] [facility], [place], [place] [id number] Card Feeder: Guillermo Choi PhD, Phone: [phone] Patient Fasting: N Charla Vegas PA-C LAB BLOOD ORDERABLES Final Result [facility] ([facility]BULATORY) [address] [place] [address], [facility] [address] [place] [address], from Last 3 Months or Most Recently Relevant to Health Maintenance Insurance Latasha KARON HUGHESTREE MANUEL [id number] [facility] PPO Care Teams Control Area Operator Relationship Specialty Start Date End Date Nadia Drummond MD PCP - General Family Medicine 07/15/20
== END 2025-06-30 23:59 | disposition home or self-care (01) ==
PROVIDERS: PCP Family Medicine; Visit Provider Obstetrics & Gynecology
DX: Z34.90 Encounter for supervision of normal pregnancy, unspecified, unspecified trimester (principal); N92.6 Irregular menstruation, unspecified
CPT/HCPCS: 36415; 84144; 84702

== ENCOUNTER 2025-07-02 10:32 | Outpatient (CLI) | payer BC, SELFPAY ==
--- OUTSIDE RECORDS SUMMARY | 2021-05-03 12:23 | XMS_ITS | Encounter Summary ---
[facility] Address [address] [place] [address] Care Team Providers Care Speech And Language Specialist Name Role Phone Nadia Drummond MD Primary Care Provider [phone] Reason for Visit * Diagnostic Imaging (Routine) - Closed Specialty Diagnoses / Procedures Referred By Contac t Referred To Contact Radiology Diagnoses Hypothyroidism, unspecified type Procedures US Thyroid Cheri Harden DO [address] [place] [address] Phone: tel: fax: [facility] [address] [place] [address] Phone: tel: fax: Referral ID Status Reason Start Date Expiration Date Visits Re quested Visits Authorized [id number] Closed 05/03/2021 05/03/2022 1 1 Encounter Details Date Type Department Care Team (Late st Contact Info) Description 05/03/2021 12:23 PM EDT Hospital Encounter [facility] [address] [place] [address] Social History Tobacco Use Types Packs/Day Years Used Date Smoking Tobacco: Never Smokeless Tobacco: Never Alcohol Use Standard Drinks/Week Comments Not Currently 0 (1 standard drink = 0.6 oz pur e alcohol) Abuse Screen Answer Date Recorded Unsafe at Home or Work/School Not on file Feels Threatened by Someone? Not on file 07/2023 Does Anyone Keep You from Co ntacting Others or Doint Things Outside the Home? Not on file 08/14/2023 Physical Sign of Abuse Present Not on file 1 Housing Stability Answer Date Recorded Current Living Arrangements Not on file 07/2023 Potentially Unsafe Housing Conditions Not on marina e 08/14/2023 Family and Community Support Answer Refugio e Recorded Help with Day-to-Day Activities Not on file 08/14/2023 Lonely or Isolated Not on file 08/14/2023 Employment Answer Date Recorded Do you want help finding or keeping work or a kory b? Not on file 08/14/2023 Disabilities Answer Date Recorded Concentrating, Remembering, or Making Decisions Difficulty Not on file 08/14/2023 Doing Errands Independently Difficulty Not on fi le 08/14/2023 Education Answer Date Recorded Help with school or training? Not on file Preferred Language Not on file 08/14/2023 Comments Unknown Sex and Gender Information Value Date Recorded Sex Assigned at Not on file Legal Sex Female 1:49 PM EDT Gender [...] documented as of this encounter Care Teams Speech And Language Specialist Relationship Specialty Start Date End Date Nadia Drummond MD PCP - General Family Medicine 07/15/20 documented as of this encounter
--- OUTSIDE RECORDS SUMMARY | 2022-10-13 10:42 | XMS_ITS | Encounter Summary ---
Author Organization [facility] Address [address] [place] [address] Care Team Providers Care Colorist Name Role Phone Nadia Drummond MD Primary Care Provider [phone] Reason for Visit * Diagnostic Imaging (Routine) - Closed Specialty Diagnoses / Procedures Referred By Idalia caruso Referred To Contact Radiology Diagnoses Solitary thyroid nodule Procedures US Thyroid Cheri Harden DO 3084 [employer] [address] [place] [address] Phone: tel: fax: Referral ID Status Reason Start Date Expiration Date Visits Re quested Visits Authorized [id number] Closed 10/13/2022 10/13/2023 1 1 Encounter Details Date Type Department Care Team (Late st Contact Info) Description 10/13/2022 9:42 AM EST Hospital Encounter [facility] ENDOCRINOLOGY 30[address] [facility] [address] [place] [phone] Social History Tobacco Use Types Packs/Day Years [...] Please see performing physician's note for result. Cheri Harden DO IMG US ORDERABLES Final R esult documented in this encounter Visit Diagnoses Not on filedocumented in this encounter Additional Health Concerns Infection Onset Date Last Indicated Resolved Time COVID Screen (preop/placement) 02/15/2022 02/15/2022 12/28/2023 12:11 PM EST documented as of this encounter Care Teams Colorist Relationship Specialty Start Date End Date Nadia Drummond MD PCP - General Family Medicine 07/15/20 documented as of this encounter
--- OUTSIDE RECORDS SUMMARY | 2025-06-07 05:00 | XMS_ITS ---
Author Organization [facility] Address [address] [place] [address] Phone [phone] Care Team Providers Care Metal Weather Stripper Name Role Phone Page Velásquez Unavailable [phone] Migration, Provider Unavailable Unavailable REASON FOR VISIT EMR-Paul Encounters Encounter Location Date Provider Diagnosis [facility] [address] [place] [address] 06/07/2025 Provider Migration Plan Of Treatment No Information Progress Notes * PARDEEP FENGDOB:1995 (29 yo F)Acc No.[id number]:06/07/2025 Patient: PARDEEP CAST :1995 A ge:29 Y S ex:Female Address:[address] [place] [facility] [address] Subjective: * Chief Complaints: * E MR-Paul * * Date:
--- OUTSIDE RECORDS SUMMARY | 2025-06-08 05:00 | XMS_ITS ---
Author [facility] Address [address] [place] [address] Phone [phone] Care Team Providers Care Juice Weigher Name Role Phone Page Velásquez Unavailable [phone] Migration, Provider Unavailable Unavailable REASON FOR VISIT EMR-Paul Medications Medication SIG (Take, Route, Frequency, Duration) Notes Start Date End Date Status Ondansetron HCl 4 MG Tablet Oral Active Drospirenone-Ethinyl Estradiol 3-0.03 MG Tablet Oral Active Norethindrone 0.35 MG Tablet Oral Active EUTHYROX 75 MCG TABLET *[facility] for eRx and Interaction Alerts* Active Saxenda 18 MG/3ML Solution Pen-injector Subcutaneous Active HYDROcodone-Acetaminophen 5-325 MG Tablet Oral Active metroNIDAZOLE 500 MG Tablet Oral Active Levothyroxine Sodium 25 MCG Tablet Oral Active hydroCHLOROthiazide 12.5 MG Tablet Oral Active BD PANKAJ 2ND GEN PEN NEEDLE 32 GAUGE X *Reorder from [employer] for eRx and Interaction Alerts* Active Social History Social History Additional Details Category Social Info Options Details Migrated Social History Migrated Social History Tobacco Years: Never smoker 07/12/2021 Encounters Encounter Location Date Provider Diagnosis [facility] [address] [place] [address] 06/08/2025 Provider Migration Plan Of Treatment No Information Progress Notes * JUNG PREMAAYANACROWDOB:1995 (29 yo F)Acc No.[id number]:06/08/2025 Patient: PARDEEP CAST :1995 A ge:29 Y S ex:Female Address:[place], [address] Subjective: * Chief Complaints: * E MR-Paul [...] TABLET , Notes to Pharmacist: *Reorder from [facility] for eRx and Interaction Alerts*Saxenda 18 MG/3ML Solution Pen-injector Subcutaneous BD PANKAJ 2ND GEN PEN NEEDLE 32 GAUGE X 5/32 , Notes to Pharmacist: *Reorder from [facility] for eRx and Interaction Alerts*Levothyroxine Sodium 25 MCG Tablet Oral Norethindrone 0.35 MG Tablet Oral Taking HYDROcodone-Acetaminophen 5-325 MG Tablet Oral Taking hydroCHLOROthiazide 12.5 MG Tablet Oral Taking metroNIDAZOLE 500 MG Tablet Oral Taking Drospirenone- Ethinyl Estradiol 3-0.03 MG Tablet Oral Taking Ondansetron HCl 4 MG Tablet Oral Taking EUTHYROX 75 MCG TABLET , Notes to Pharmacist: *Reorder from [facility] for eRx and Interaction Alerts*Taking Saxenda 18 MG/3ML Solution Pen-injector Subcutaneous Taking BD PANKAJ 2ND GEN PEN NEEDLE 32 GAUGE X 5/32 , Notes to Pharmacist: *Reorder from [facility] for eRx and Interaction Alerts*Taking Levothyroxine Sodium 25 MCG Tablet Oral Taking Norethindrone 0.35 MG Tablet Oral * * Date:
--- OUTSIDE RECORDS SUMMARY | 2025-07-02 10:34 | XMS_ITS | Clinical Summary ---
Author Organization [facility] Address [address] [place] [address] Care Team Providers Care Chicken Cutter Name Role Phone Nadia Goodson MD Primary Care Provider [phone] Allergies Active Allergy Reactions Criticality Noted Date [...] Obstetrics & Gynecology [address] [place] [place] [address] Positive urine test (Primary Dx); Irregular menstruation, unspecified 04/30/2025 Results Follow-Up Obstetrics & Gynecology [address] [place] [address] Tres Ybarra MD 04/30/2025 Travel 04/29/2025 Results Follow-Up Obstetrics & Gynecology [address] [place] [address] Tres Ybarra MD 04/28/2025 1:45 PM EDT Clinical Support Obstetrics & Gynecology [address] [place] [address] Irregular menstruation, unspecified (Primary Dx); Positive urine test 04/28/2025 Travel 04/28/2025 Telephone Obstetrics & Gynecology [address] [place] [address] Tres Ybarra MD 04/18/2025 Results Follow-Up Obstetrics & Gynecology [address] [place] [address] Tres Ybarra MD 04/17/2025 10:00 AM EDT Clinical Support Obstetrics & Gynecology [address] [place] [place] [address] Irregular menstruation, unspecified (Primary Dx) 04/17/2025 Travel 04/14/2025 Telephone Obstetrics & Gynecology [address] [place] [address] Tres Ybarra MD HCN - Patient Message 04/08/2025 2:15 PM EDT Ancillary Procedure Obstetrics & Gynecology [address] [place] [place] [address] Irregular menstruation, unspecified 04/08/2025 2:00 PM EDT Office Visit Obstetrics & Gynecology [address] [place] [address] Tres Ybarra MD Irregular menstruation, unspecified [...] Recorded Patient Health Questionnaire-2 Score 0 04/08/2025 [place] Depression Scale Answer Date Recorded [place] Depression Scale Total 0 02/23/2024 The thought [...] Visit Obstetrics & Gynecology [address] [place] [address] Tres Ybarra MD [address] [place] [address] Health Maintenance Due Date Last Done Comments [facility]Infant/Child/Adol SDOH Screenings 1993 [facility]- SDOH Screenings 2011 [facility]-Adult SDOH Screenings 2011 [facility]-Hepatitis B Vaccines (1 of 3 - 19+ 3-dose series) 2012 [facility]-Varicella Vaccines (2 of 2 - 13+ 2-dose series) 05/27/2015 04/29/2015 HPV Vaccines (1 - 3-dose SCDM series) 2020 [id number]-41 Vaccine (3 - Moderna risk series) 01/06/2021 [...] 18.2(H) <5 mIU/mL 04/30/2025 1:38 PM EDT [facility] Blood Venous blood specimen / Unknown Venipuncture / Unknown 04/30/2025 10:10 AM EDT 04/30/2025 12:54 PM EDT Narrative [facility] - 04/30/2025 1:38 PM EDT [...] MD LAB BLOOD ORDERABLES Final Resu lt [facility] [address] [place] [address] * Progesterone (04/28/2025 2:12 PM EDT) Only the most recent of2 resultswithin the time period is included. Progesterone III 12.7 Reference Range not established ng/mL 04/28/2025 6:28 PM EDT [facility] Blood Venous blood specimen / Unknown Venipuncture / Unknown 04/28/2025 2:12 PM EDT 04/28/2025 5:50 PM EDT Narrative [facility] - 04/28/2025 6:28 PM EDT Menstrual Cycle Phase Reference Intervals: Females, 18 Y and up (ng/mL) Follicular <= 0.33 Ovulation <= 2.35 Luteal 0.5-21 Post-Menopausal <0.2 reference Intervals (ng/mL): 1st Trimester 11 - 45 2nd Trimester 25 - 84 3rd Trimester 58 - 214 Result Mary Ybarra MD LAB BLOOD ORDERABLES Final Resu lt Performing Organization Address [facility] [place] [address] * Thyroid Stimulating Hormone, Plasma (04/17/2025 10:40 AM EDT) Thyroid Stimulating Hormone, Plasma 2.90 0.40 - 4.20 uIU/mL 04/17/2025 6:39 PM EDT [facility] Blood Venous blood specimen / Unknown Venipuncture / Unknown 04/17/2025 10:40 AM EDT 04/17/2025 5:57 PM EDT Narrative [facility] - 04/17/2025 6:39 PM EDT Trimester Specific Ranges TSH ( IU/mL) 1st Trimester 0.1 - 3.0 2nd Trimester 0.19 - 4.06 3rd Trimester 0.3 - 3.7 Result Mary Ybarra MD LAB BLOOD ORDERABLES Final Resu Performing Organization Address [facility] [place] [address] * Free T4, Plasma (04/17/2025 10:40 AM [...] MD LAB BLOOD ORDERABLES Final Resu lt [facility] [address] [place] [address] * US Pelvis Transvaginal (04/08/2025 2:12 PM EDT) Anatomical Region Laterality Modality Pelvis Ultrasound 04/08/2025 2:20 PM EDT Impressions 04/08/2025 2:24 PM EDT The OB Ultrasound you requested has been resulted. Please navigate to the Imaging tab in [employer] for review. This message has been generated by the interface. Narrative Procedure Note Tres Ybarra MD - 04/08/2025 IMPRESSION: The OB Ultrasound you requested has been resulted. Please navigate to theImaging tab in [employer] for review. This message has been generated by theinterface. Result Mary Ybarra MD IMG US PROCEDURES Final Result * Referred ThinPrep Pap and HPV (SO) (02/06/2025 8:23 AM EDT) Pap, Source Cx/Vagina 02/13/2025 12:50 PM EDT [facility] EER Referred ThinPrep Pap and HPV See Note 02/13/2025 12:50 PM EDT [facility] PAP, THINPREP Normal 02/13/2025 12:50 PM EDT [facility] High Risk HPV Normal 02/13/2025 12:50 PM EDT [facility] Swab Vaginal and cervical cytologic material / Unknown Non-blood Collection / Unknown 02/06/2025 8:23 AM EDT 02/06/2025 12:54 PM EDT Narrative [facility] ([facility]) - 02/13/2025 12:50 PM EDT Authorized individuals can access the [employer] Enhanced Report with an [employer] Connect account using the following link. Your local lab can assist you in obtaining the patient report if you don't have a Connect account. [email or web address] Performed By: [facility] [address] [place] [address] Environmental Maintenance Worker: Thompson Correa MD, PhD CLIA Number: [id number] SPECIMEN PART A. Cervical, Endocervical, Vaginal, ThinPrep Pap (Nail Expert) CYTOLOGY HX Date of Last Menstrual Period: N FINAL DIAGNOSIS INTERPRETATION: Negative for Intraepithelial Lesion or Malignancy. SPECIMEN ADEQUACY:Satisfactory for evaluation. Endocervical/transformation zone component present. Electronically Signed Out : [email or web address] Performed by: [facility] [address] [place] [address] [place] [address] Desire Alvarez MD, HR-HPV: Negative Test performed by the FDA-approved [employer] (Gen-Probe) APTIMA HPV test, which detects HPV genotypes: 16, 18, 31, 33, 35, 39, 45, 51, 52, 56, 58, 59, 66, and 68. This assay has been cleared for the specimen types listed below. Other specimen types have not been validated for this assay. -Clinician-collected ThinPrep Pap specimens. Performed by: [facility] [address] [place] [address] [place] [address] Desire Alvarez MD, us Tres Ybarra MD LAB REF LAB BLOOD AND FLUID ORD Final Result [facility] ([facility]) [address] [place] [address] * HIV 1 & 2 Antibody/Antigen Screen [...] ORDERABLES Final Resu lt Performing Organization Address [facility] Co de Phone Number [facility] [address] [place] [address] * Hepatitis C Antibody (05/29/2023 10:20 AM EDT) Hepatitis C Antibody Negative Negative 05/29/2023 2:02 PM EDT [facility] Blood Venous blood specimen / Unknown Venipuncture / Unknown 05/29/2023 10:20 AM EDT 05/29/2023 1:01 PM EDT Result Mary Ybarra MD LAB BLOOD ORDERABLES Final Resu lt Performing Organization Address [facility] Phone Number [facility] [address] [place] [address] from Last 3 Months or Most Recently Relevant to Health Maintenance Insurance [facility] Advance Directives * Full Code (Latest Code Status on File) Date Activated Date Inactivated Comments 08/09/2021 8:28 PM 08/10/2021 1:42 PM Question Answer Comments Patient has decision-making capacity? Yes * Full Code Date Activated Date Inactivated Comments 08/08/2021 3:47 AM 08/09/2021 12:51 AM Question Answer Comments Patient has decision-making capacity? Yes Care Teams Chicken Cutter Relationship Specialty Start Date End Date Nadia Goodson MD [facility] [place] [address] PCP - General 01/17/23
--- OUTSIDE RECORDS SUMMARY | 2025-07-02 10:34 | XMS_ITS | Encounter Summary ---
Author Organization [facility] Address [address] [place] [address] Care Team Providers Care Rn Immunology Name Role Phone Nadia Goodson MD Primary Care Provider [phone] Encounter Details Date Type Department Care Team (Late st Contact Info) Description 04/30/2025 Results Follow-Up Obstetrics & Gynecology [address] [place] [address] Tres Ybarra MD [address] [place] [address] Social History Tobacco Use Types Packs/Day Years Used Date Smoking Tobacco: Never Smokeless Tobacco: Never Alcohol Use Standard Drinks/Week Comments No 0 (1 standard drink = 0.6 oz pur e alcohol) PHQ-2 Answer Date Recorded Patient Health Questionnaire-2 Score 0 04/08/2025 [place] Depression Scale Answer Date Recorded [place] Depression Scale Total 0 02/23/2024 The thought [...] EDT Procedure Visit Obstetrics & Gynecology [address] [place] [address] Tres Ybarra MD [address] [place] [address] documented as of this encounter [...] documented as of this encounter Care Teams Rn Immunology Relationship Specialty Start Date End Date Nadia Goodson MD [address] [place] [address] PCP - General 01/17/23 documented as of this encounter
--- OUTSIDE RECORDS SUMMARY | 2025-07-02 10:34 | XMS_ITS | Patient Health Record ---
Author Organization [facility] Address [address] [place] [address] Phone [phone] Care Team Providers Care Electronics Specialist Name Role Phone Page Velásquez Unavailable [phone] Migration, Provider Unavailable Unavailable Reason For Referral No Information Medications Medication SIG (Take, Route, Frequency, Duration) Notes Start Date End Date Status HYDROcodone-Acetaminophen 5-325 MG Tablet Oral Active metroNIDAZOLE 500 MG Tablet Oral Active Ondansetron HCl 4 MG Tablet Oral Active Drospirenone-Ethinyl Estradiol 3-0.03 MG Tablet Oral Active Norethindrone 0.35 MG Tablet Oral Active Levothyroxine Sodium 25 MCG Tablet Oral Active EUTHYROX 75 MCG TABLET *Reorder from [employer] for eRx and Interaction Alerts* Active hydroCHLOROthiazide 12.5 MG Tablet Oral Active BD PANKAJ 2ND GEN PEN NEEDLE 32 GAUGE X / *Reorder from [employer] for eRx and Interaction Alerts* Active Saxenda 18 MG/3ML Solution Pen-injector Subcutaneous Active Social History Social History Additional Details Category Social Info Options Details Migrated Social History Migrated Social History Tobacco Years: Never smoker 07/12/2021 Problems Problem Type SNOMED Code ICD Code Onset Dates Problem Status W/U Status Risk Notes Problem History of suspected exposure to biological agent (48581001990280 ) Encounter for observation for suspected exposure to other biological agents ruled out (Z03.818) Active confirmed Encounters Encounter Location Date Provider Diagnosis [address] [address] 06/07/2025 Provider Migration [address] [address] 06/08/2025 Provider Migration Plan Of Treatment No Information Insurance Providers Payer Name Payer Address Payer Phone Subscriber Number Group Number Insured Name Patient Relationship to Insured Coverage Start Date Coverage End Date [employer] ([place]po) [address] [place] [phone] [id number] JANE ALBARADO Spouse - patient is the spouse of the insured
--- OUTSIDE RECORDS SUMMARY | 2025-07-02 10:34 | XMS_ITS | Encounter Summary ---
Author Organization [employer] ([place], [place], [place], [place]) Address [address] [place] [address] Care Team Providers Care Comb Setter Name Role Phone Unavailable Primary Care Provider Unavailabl e Encounter Details Date Type Department Care Team (Late st Contact Info) Description 09/24/2019 Transcribed Document [facility] Family Medicine [address] [place] [address] ProviderLeón MD [address] [place] [address] Social History Tobacco Use Types [...] León Joseph MD - 09/24/2019 8:33 AM LOCOMOTIVE ENGINEER ELECTRIC Pain Assessment Entered On: 09/24/2019 9:40 EST [...]
--- OUTSIDE RECORDS SUMMARY | 2025-07-02 10:34 | XMS_ITS | Encounter Summary ---
Author Organization [facility] Address [address] [place] [address] Care Team Providers Care Shot Dropper Name Role Phone Nadia Goodson MD Primary Care Provider [phone] Encounter Details Date Type Department Care Team (Late st Contact Info) Description 04/18/2025 Results Follow-Up Obstetrics & Gynecology [address] [place] [address] Tres Ybarra MD [address] [place] [address] Social History Tobacco Use Types Packs/Day Years Used Date Smoking Tobacco: Never Smokeless Tobacco: Never Alcohol Use Standard Drinks/Week Comments No 0 (1 standard drink = 0.6 oz pur e alcohol) PHQ-2 Answer Date Recorded Patient Health Questionnaire-2 Score 0 04/08/2025 [place] Depression Scale Answer Date Recorded [place] Depression Scale Total 0 02/23/2024 The thought [...] EDT Procedure Visit Obstetrics & Gynecology [address] [place] [address] Tres Ybarra MD [address] [place] [address] documented as of this encounter [...] documented as of this encounter Care Teams Shot Dropper Relationship Specialty Start Date End Date Nadia Goodson MD [address] [place] [address] PCP - General 01/17/23 documented as of this encounter
--- OUTSIDE RECORDS SUMMARY | 2025-07-02 10:34 | XMS_ITS | Encounter Summary ---
Author Organization [employer] ([place], [place], [place], [place]) Address [address] [place] [address] Care Team Providers Care Medical Historian Name Role Phone Unavailable Primary Care Provider Unavailabl e Encounter Details Date Type Department Care Team (Late st Contact Info) Description 09/24/2019 Transcribed Document [facility] Family Medicine [facility] [place] [address] ProviderLeón MD [facility] [place] [address] Social History Tobacco Use Types [...] - León ProviderMD - 09/24/2019 5:36 AM [facility] ED Triage Entered On: 09/24/2019 5:47 EST Performed On: 09/24/2019 5:42 EST by MINDI WONG SUMMER NANNY Triage Across the Room Triage Date/Time : 09/24/2019 5:42 EST Chief Complaint : Pt c/o fever and vaginal bleeding x2 days. Pt stated she is on her period but the bleeding is more than usual; +abdominal cramping. No med taken SALES ENGINEER ACCOUNT MANAGER MINDI WONG, RN - 09/24/2019 5:42 EST MINDI WONG RN - 09/24/2019 5:42 EST DCP GENERIC CODE Tracking Group : [facility] [place] MINDI WONG RN [...] 09/24/2019 05:47:35 EST) Problems(Active) Asthma (SNOMED CT :577913997 ) Name of Problem: Asthma ; Recorder: RAJNI RAMIREZ RN; Confirmation: Confirmed ; Classification: Medical ; Code: [id number] ; Contributor System: [employer] ; Last Updated: 09/01/2018 18:05 EDT ; Life Cycle Date: 09/01/2018 ; Life Cycle Status: Active ; Vocabulary: SNOMED CT Hypothyroid (SNOMED CT :11970538 ) Name of Problem: Hypothyroid ; Recorder: RAJNI RAMIREZ RN; Confirmation: Confirmed ; Classification: Medical ; Code: [id number] ; Contributor System: [employer] ; Last Updated: 09/01/2018 18:05 EDT ; Life Cycle Date: 09/01/2018 ; Life Cycle Status: Active ; Vocabulary: SNOMED CT PCOS (polycystic ovarian syndrome) (SNOMED CT :414668286 ) Name of Problem: PCOS (polycystic ovarian syndrome) ; Recorder: RAJNI RAMIREZ RN; Confirmation: Confirmed ; Classification: Medical ; Code: [id number] ; Contributor System: [employer] ; Last Updated: 09/01/2018 18:05 EDT ; Life Cycle Date: 09/01/2018 ; Life Cycle Status: Active ; Vocabulary: SNOMED CT Diagnoses(Active) Abdominal pain Date: 09/24/2019 ; Diagnosis Type: Reason For Visit ; Confirmation: Complaint of ; Clinical Dx: Abdominal pain ; Classification: Medical ; Clinical Service: Emergency medicine ; Code: PNED ; Probability: 0 ; Diagnosis Code: [id number] Fever Date: 09/24/2019 ; Diagnosis Type: Reason For Visit ; Confirmation: Complaint of ; Clinical Dx: Fever ; Classification: Medical ; Clinical Service: Emergency medicine ; Code: PNED ; Probability: 0 ; Diagnosis Code: [id number] Vaginal bleeding Date: 09/24/2019 ; Diagnosis Type: Reason For Visit ; Confirmation: Complaint of ; Clinical Dx: Vaginal bleeding ; Classification: Medical ; Clinical Service: Emergency medicine ; Code: PNED ; Probability: 0 ; Diagnosis Code: [id number] ED Height and Weight Height Source : Stated Height Entry Format : [place] Height, Feet : 5 ft(Converted to: 152 cm, 60 Inch) Height, Inches : 5 Inch(Converted to: 0 ft 5 Inch, 12.70 cm) Clinical Height : 165.1 cm Weight Source, ED : Standing scale Weight Entry Format : [place] Weight, Pounds : 220 lb Clinical Dosing Weight : 100 kg Body Surface Area (BSA) : 2.06 m2 Body Mass Index : 36.7 kg/m2 (HI) Moore Body Weight (IBW) : 56.59 kg MINDI [...] signed by [facility], [facility] Conversion Tinner Automatic Cerner at 02/19/2023 9:39 AM CDT documented in this encounter Plan of Treatment Not on file documented as of this encounter Visit Diagnoses Not on filedocumented in this encounter
--- OUTSIDE RECORDS SUMMARY | 2025-07-02 10:34 | XMS_ITS | Encounter Summary ---
Author Organization [employer] ([place], [place], [place], [place]) Address [address] [place] [address] Care Team Providers Care Card Dealer Name Role Phone Unavailable Primary Care Provider Unavailabl e Encounter Details Date Type Department Care Team (Late st Contact Info) Description 09/24/2019 Transcribed Document [facility] [place] [address] [place] [address] ProviderLeón MD [facility] [place] [address] Social History Tobacco Use Types [...] León Joseph MD - 09/24/2019 5:36 AM AUGER MILL OPERATOR ED Assessment Entered On: 09/24/2019 6:25 EST Performed On: 09/24/2019 6:24 EST by RENETTA NIXON RN ED Quick Look Assessment Level of Consciousness : Alert, Awake RENETTA NIXON RN - 09/24/2019 6:24 EST ED General-Functional Assess Information Obtained From : Patient Communication Barrier : None Primary Language : Portuguese Any Spiritual/Cultural Needs or Requests : No [...] RN) EENT Assessment EENT Assessment WDL : [facility] HUSSAINRENETTA AGUAYO - 09/24/2019 6:24 EST Cardiovascular ASMT, ED Cardiovascular Assessment WDL : [facility] RENETTA NIXON RN - 09/24/2019 6:24 EST Pulses Grid Radial Pulse, Left : 2+ normal Radial Pulse, Right : 2+ normal RENETTA NIXON - 09/24/2019 6:24 EST Respiratory Respiratory Assessment WDL : [facility] RENETTA NIXON RN - 09/24/2019 6:24 EST Breath Sounds Assessment Grid All Lobes Breath Sounds : Clear RENETTA NIXON RN - 09/24/2019 6:24 EST Gastrointestinal ED Gastrointestinal Assessment WDL : WD with exceptions Gastrointestinal Symptoms : Abdominal pain RENETTA NIXON RN - 09/24/2019 6:24 EST Genitourinary Assessment, ED Genitourinary Assessment WDL : [facility] with exceptions Genitourinary Symptoms : Vaginal bleeding RENETTA NIXON RN - 09/24/2019 6:24 EST Musculoskeletal Musculoskeletal Assessment WDL : [facility] RENETTA NIXON RN - 09/24/2019 6:24 EST Integumentary Assessment Integumentary Assessment WDL : [facility] RENETTA NIXON RN - 09/24/2019 6:24 EST Neurologic ASMT, ED Neurologic Assessment WDL : [facility] RENETTA NIXON RN - 09/24/2019 6:24 EST documented in this encounter Plan of Treatment Not on file documented as of this encounter Visit Diagnoses Not on filedocumented in this encounter
--- OUTSIDE RECORDS SUMMARY | 2025-07-02 10:34 | XMS_ITS | Encounter Summary ---
Author Organization [employer] ([place], [place], [place], [place]) Address [address] [place] [address] Care Team Providers Care Log Roller Name Role Phone Unavailable Primary Care Provider Unavailabl e Encounter Details Date Type Department Care Team (Late st Contact Info) Description 09/24/2019 Transcribed Document [facility] Family Medicine [address] [place] [address] ProviderLeón MD [address] [place] [address] Social History Tobacco Use Types [...] León Joseph MD - 09/24/2019 10:05 AM ANNEALER HELPER [place] [id number] PAM FENG :1995 Visit Time:09/24/2019 Your Visit [...] bleeding, fever and or persistent vomiting. Where: [facility] [address] [place] [address]- [facility] (1) Allergies amoxicillin (C/O - vomiting) [...] range between ( 1.0 and 7.0 ) [place] #: 0.60 K/uL -- Normal range between ( 0.24 and 0.82 ) Eos #: 0.32 K/uL -- Normal range between ( 0.04 and 0.54 ) [place] %: 7.9 % -- Normal range between [...] ) Urine Bilirubin Dipstick: Negative Urine Specific [place]: 1.007 -- Normal range between ( 1.005 [...] 10/23/2006 Document Revised: 11/24/2017 Document Reviewed: 11/24/2017 Your Policy Manager Interactive Patient Education ?? 2019 VoodooVox. Emergency Awareness and Preventative Care STROKE is [...] Assistance with quitting is available by contacting 1-530-DNKN-NOW. This is a free resource providing counseling, [...] was given the opportunity to ask questions. Patient/Excelsior Machine Feeder Name: Patient/Excelsior Machine Feeder Signature: Relationship to Patient: Clinician/Hospital Excelsior Machine Feeder Signature: Please Provide a Telephone Number Where You Can Be Reached: Is it Permissible To Leave a Message? Date: documented in this encounter Plan of Treatment Not on file documented as of this encounter Visit Diagnoses Not on filedocumented in this encounter
--- OUTSIDE RECORDS SUMMARY | 2025-07-02 10:34 | XMS_ITS | Encounter Summary ---
Author Organization [employer] ([place], [place], [place], [place]) Address [address] [place] [address] Care Team Providers Care Chief Medical Physicist Name Role Phone Unavailable Primary Care Provider Unavailabl e Encounter Details Date Type Department Care Team (Late st Contact Info) Description 09/24/[address] [facility] [place] Medicine [address] [place] [address] ProviderLeón MD [address] [place] [address] Social History Tobacco Use Types [...] - Historical ProviderMD - 09/24/2019 5:36 AM BRICK POINTER [place] Suicide Severity Rating Scale (C-SSRS) Entered On: 09/24/2019 6:25 EST Performed On: 09/24/2019 6:24 EST by RENETTA NIXON RN [place] Suicide Severity Rating Scale (C-SSRS) CSSRS Past [...]
--- OUTSIDE RECORDS SUMMARY | 2025-07-02 10:34 | XMS_ITS | Encounter Summary ---
Author Organization [employer] ([place], [place], [place], [place]) Address [address] [place] [address] Care Team Providers Care Hris Analyst Name Role Phone Unavailable Primary Care Provider Unavailabl e Encounter Details Date Type Department Care Team (Late st Contact Info) Description 09/24/2019 Transcribed Document [facility] [place] [address] [place] [address] ProviderLeón MD [address] [place] [address] Social History Tobacco Use Types [...] - Historical ProviderMD - 09/24/2019 9:17 AM NEWSPERSON Electronically signed by Jimena [facility] Conversion Fence Making Machine Operator Cerner at 02/19/2023 9:55 AM CDT documented in this encounter Plan of Treatment Not on file documented as of this encounter Visit Diagnoses Not on filedocumented in this encounter
--- OUTSIDE RECORDS SUMMARY | 2025-07-02 10:34 | XMS_ITS | Encounter Summary ---
Author Organization [facility] Address [address] [place] [address] Care Team Providers Care Hoop Punch Operator Helper Name Role Phone Nadia Goodson MD Primary Care Provider [phone] Encounter Details Date Type Department Care Team (Late st Contact Info) Description 04/29/2025 Results Follow-Up Obstetrics & Gynecology [address] [place] [address] Tres Ybarra MD [address] [place] [address] Social History Tobacco Use Types Packs/Day Years Used Date Smoking Tobacco: Never Smokeless Tobacco: Never Alcohol Use Standard Drinks/Week Comments No 0 (1 standard drink = 0.6 oz pur e alcohol) PHQ-2 Answer Date Recorded Patient Health Questionnaire-2 Score 0 04/08/2025 Garland Depression Scale Answer Date Recorded Garland Depression Scale Total 0 02/23/2024 The thought [...] EDT Procedure Visit Obstetrics & Gynecology [address] [place] [address] Tres Ybarra MD [address] [place] [address] documented as of this encounter [...] documented as of this encounter Care Teams Hoop Punch Operator Helper Relationship Specialty Start Date End Date Nadia Goodson MD [address] [place] [address] PCP - General 01/17/23 documented as of this encounter
--- OUTSIDE RECORDS SUMMARY | 2025-07-02 10:35 | XMS_ITS | Referral Summary ---
Author Organization [employer] ([place], [place], [place], [place]) Address [address] [place] [address] Care Team Providers Care Food Writer Name Role Phone Unavailable Primary Care Provider [...]
--- OUTSIDE RECORDS SUMMARY | 2025-07-02 10:35 | XMS_ITS | Patient Health Record ---
Author Organization [facility] Address [address] [facility] [address] [place] [address] Care Team Providers Care Equipment Mechanic Name Role Phone Maggie Tenorio [phone] Allergies Allergen (clinical drug ingredient) Drug/Non Drug [...]
--- OUTSIDE RECORDS SUMMARY | 2025-07-02 10:35 | XMS_ITS | Encounter Summary ---
Author Organization [employer] ([place], [place], [place], [place]) Address [address] [place] [address] Care Team Providers Care Cvt Rn Name Role Phone Unavailable Primary Care Provider Unavailabl e Encounter Details Date Type Department Care Team (Late st Contact Info) Description 11/25/2020 Transcribed Document [facility] [place] [facility] [place] [address] ProviderLeón MD [address] [place] [address] Social History Tobacco Use Types [...] - Historical ProviderMD - 11/25/2020 3:34 PM INDUSTRIAL SPECIALIST Electronically signed by Jimena [facility] Conversion Order Packer Or Packager Cerner at 02/19/2023 9:52 AM CDT documented in this encounter Plan of Treatment Not on file documented as of this encounter Visit Diagnoses Not on filedocumented in this encounter
--- OUTSIDE RECORDS SUMMARY | 2025-07-02 10:35 | XMS_ITS | Encounter Summary ---
Author Organization [employer] ([place], [place], [place], [place]) Address [address] [place] [address] Care Team Providers Care Press Worker Helper Name Role Phone Unavailable Primary Care Provider Unavailabl e Encounter Details Date Type Department Care Team (Late st Contact Info) Description 11/25/2020 Transcribed Document [facility] [place] [address] ProviderLeón MD [place] [address] Social History Tobacco Use Types [...] - León ProviderMD - 11/25/2020 10:52 AM FUNERAL DIRECTOR/EMBALMER ED Triage Entered On: 11/25/2020 11:06 EST Performed On: 11/25/2020 11:03 EST by ALBERTO CHAVES FOUNDATION RELATIONS MANAGER Triage Across the Room Chief Complaint : pt states NAGY for last 2 days, worst NAGY of life, pressure in back of head, no other symptoms noted, Triage Date/Time : 11/25/2020 11:03 EST ALBERTO CHAVES RN - 11/25/2020 11:03 EST DCP GENERIC CODE Tracking Acuity : 3 - Urgent Tracking Group : [facility] ED ALBERTO CHAVES RN - 11/25/2020 [...] 11/25/2020 11:06:17 EST) Problems(Active) Asthma (SNOMED CT :840154661 ) Name of Problem: Asthma ; Recorder: RAJNI RAMIREZ RN; Confirmation: Confirmed ; Classification: Medical ; Code: [id number] ; Contributor System: PowerChart ; Last Updated: 09/01/2018 18:05 EDT ; Life Cycle Date: 09/01/2018 ; Life Cycle Status: Active ; Vocabulary: SNOMED CT Hypothyroid (SNOMED CT :05769623 ) Name of Problem: Hypothyroid ; Recorder: RAJNI RAMIREZ RN; Confirmation: Confirmed ; Classification: Medical ; Code: 22834367 ; Contributor System: PorchChart ; Last Updated: 09/01/2018 18:05 EDT ; Life Cycle Date: 09/01/2018 ; Life Cycle Status: Active ; Vocabulary: SNOMED CT PCOS (polycystic ovarian syndrome) (SNOMED CT :121407095 ) Name of Problem: PCOS (polycystic ovarian syndrome) ; Recorder: RAJNI RAMIREZ RN; Confirmation: Confirmed ; Classification: Medical ; Code: 908675491 ; Contributor System: [employer] ; Last Updated: 09/01/2018 18:05 EDT ; Life Cycle Date: 09/01/2018 ; Life Cycle Status: Active ; Vocabulary: SNOMED CT Diagnoses(Active) Headache Date: 11/25/2020 ; Diagnosis Type: Reason For Visit ; Confirmation: Complaint of ; Clinical Dx: Headache ; Classification: Medical ; Clinical Service: Emergency medicine ; Code: PNED ; Probability: 0 ; Diagnosis Code: [id number] ED Height and Weight Height Source : Stated Height Entry Format : [place] Height, Feet : 5 ft(Converted to: 152 cm, 60 Inch) Height, Inches : 5 Inch(Converted to: 0 ft 5 Inch, 12.70 cm) Clinical Height : 165.1 cm Weight Source, ED : Critical estimated dosing weight Weight Entry Format : [place] Weight, Pounds : 220 lb Clinical Dosing Weight : 100 kg Body Surface Area (BSA) : 2.06 m2 Body Mass Index : 36.7 kg/m2 (HI) [place] Body Weight (IBW) : 56.59 kg ALBERTO [...]
--- OUTSIDE RECORDS SUMMARY | 2025-07-02 10:35 | XMS_ITS | Clinical Summary ---
Author Organization [employer] ([place], [place], [place], [place]) Address [address] [place] [address] Care Team Providers Care Injection Molding Machine Offbearer Name Role Phone Unavailable Primary Care Provider [...]
--- OUTSIDE RECORDS SUMMARY | 2025-07-02 10:35 | XMS_ITS | Encounter Summary ---
Author Organization [employer] ([place], [place], [place], [place]) Address [address] [place] [address] Care Team Providers Care Blast Furnace Auxiliaries Supervisor Name Role Phone Unavailable Primary Care Provider Unavailabl e Encounter Details Date Type Department Care Team (Late st Contact Info) Description 11/25/2020 Transcribed Document [facility] Radiology [address] [place] [address] Virgie Armendariz MD One [facility] Dept of [place] [address] Social History Tobacco Use Types Packs/Day Years [...] at maximum was 10 /10. , just TRACTOR OPERATOR HELPER . The degree at present is moderate, [...] EST Height Source Stated Height Entry Format [place] Height/Length, [place] (ft) 5 ft Height/Length [place] 5 Inch CLINICALHEIGHT 165.1 cm Acra Body Weight 56.59 kg Weight Source, ED Critical estimated dosing weight Weight Entry Format [place] Weight [place] lb 220 lb CLINICALWEIGHT 100 kg Body [...] % 26.1 % Lymph # 2.37 x10(3)/uL [place] % 6.1 % [place] # 0.55 K/uL Eos % 1.3 % Eos # 0.12 x10(3)/uL Baso % 0.3 % Baso # 0.03 x10(3)/uL Slide Review No IG# 0.03 x10(3)/uL IG% 0.30 % . Radiology results: Radiology Results (Last 48 hours) [id number] -- 11/25/2020 10:52 CT Head WO (11/25/2020 [...] instructions. Notes: I certify that the Physician Communications Consultant performed the services as delegated. I agree with the assessment, treatment plan and disposition of the patient as recorded by the Physician Communications Consultant. This document was created with Cigital dictation software and unidentified enrollment advisor errors may be present.. . documented in this encounter Plan of Treatment Not on file documented as of this encounter Visit Diagnoses Not on filedocumented in this encounter
--- OUTSIDE RECORDS SUMMARY | 2025-07-02 10:35 | XMS_ITS | Encounter Summary ---
Author Organization [facility] Address [address] [id number] Care Team Providers Care Data Management Consultant Name Role Phone Pcp, No Primary Care Provider Nadia Todd MD Primary Care Provider [phone] Pcp, No Primary Care Provider Nadia Todd MD Primary Care Provider [phone] Encounter Details Date Type Department Care Team (Late Contact Info) Description 11/05/2019 [facility] OTTR Committee Historical OTTR [address] [place] [address] Marla Sin, RN HOSPITAL [facility] [id number] [address] [place] [address] Social History Tobacco Use Types Packs/Day Years [...] EDT Procedure Visit Obstetrics & Gynecology [address] [place] [address] Tres Ybarra MD [address] [place] [address] documented as of this encounter Visit Diagnoses Not on filedocumented in this encounter Care Teams Data Management Consultant Relationship Specialty Start Date End Date Pcp, No [address] [place] [address] PCP - General 08/07/21 08/08/21 Nadia Goodson MD [address] [place], [place] [address] PCP - General 08/09/21 08/09/21 Pcp, No [address] [place] [address] PCP - General Family Medicine 07/08/22 01/16/23 Nadia Goodson MD [address] [place] [address] PCP - General 01/17/23 documented as of this encounter
--- OUTSIDE RECORDS SUMMARY | 2025-07-02 10:35 | XMS_ITS | Encounter Summary ---
Author Organization [employer] ([place], [place], [place], [place]) Address [address] [place] [address] Care Team Providers Care Sintering Plant Supervisor Name Role Phone Unavailable Primary Care Provider Unavailabl e Encounter Details Date Type Department Care Team (Late st Contact Info) Description 09/24/2019 Transcribed Document [facility] [place] [address] [place] [address] ProviderLeón MD [address] [place] [address] Social History Tobacco Use Types [...] - Historical ProviderMD - 09/24/2019 7:56 AM SPEECH LANGUAGE ASSISTANT Vital Signs ED Entered On: 09/24/2019 [...]
--- OUTSIDE RECORDS SUMMARY | 2025-07-02 10:35 | XMS_ITS | Encounter Summary ---
Author Organization [employer] ([place], [place], [place], [place]) Address [address] [place] [address] Care Team Providers Care Clay Products Glazer Name Role Phone Unavailable Primary Care Provider Unavailabl e Encounter Details Date Type Department Care Team (Late st Contact Info) Description 11/25/2020 Transcribed Document [facility] [place] Medicine [address] [place] [address] ProviderLeón MD [facility] [place] [address] Social History Tobacco Use Types [...] León ProviderMD - 11/25/2020 10:52 AM FISH HOUSEKEEPER ED Assessment Entered On: 11/25/2020 14:03 EST Performed On: 11/25/2020 14:01 EST by LALI SEAY RN ED Quick Look Assessment Level of Consciousness : Alert, Awake Affect/Behavior : Appropriate, Calm, Cooperative Orientation : Oriented x 4 Skin Temperature : Warm Skin Description : Dry, [place] LALI SEAY RN - 11/25/2020 14:01 EST ED General-Functional Assess Information Obtained From : Patient Preferred Communication Mode : Verbal Communication Barrier : None Primary Language : Palauan Any Spiritual/Cultural Needs or Requests : No [...] RN - 11/25/2020 14:01 EST Canelo Coma [place] Best Motor Response : Obey commands [place] Best Verbal Response : Oriented [place] Eye Opening Response : Spontaneous [place] Coma Score : 15 LALI SEAY RN - 11/25/2020 14:01 EST Electronically signed by Jimena [facility] Conversion Ramp Agent Cerner at 02/19/2023 10:00 AM CDT documented in this encounter Plan of Treatment Not on file documented as of this encounter Visit Diagnoses Not on filedocumented in this encounter
--- OUTSIDE RECORDS SUMMARY | 2025-07-02 10:35 | XMS_ITS | Encounter Summary ---
Author Organization [facility] Address [address] [place] [address] Care Team Providers Care Waxer Name Role Phone Pcp, No Primary Care Provider Nadia Todd MD Primary Care Provider [phone] Pcp, No Primary Care Provider Nadia Todd MD Primary Care Provider [phone] Encounter Details Date Type Department Care Team (Late st Contact Info) Description 10/31/2019 [facility] OTTR Encounter Historical OTTR [address] [place] [address] Provider, [address] [address] Social History Tobacco Use Types [...] EDT Procedure Visit Obstetrics & Gynecology [address] [place] [address] Tres Ybarra MD [address] [place] [address] documented as of this encounter Visit Diagnoses Not on filedocumented in this encounter Care Teams Waxer Relationship Specialty Start Date End Date Pcp, No [address] [place] [address] PCP - General 08/07/21 08/08/21 Nadia Goodson MD [address] [place] [address] PCP - General 08/09/21 08/09/21 Pcp, No [address] [place] [address] PCP - General Family Medicine 07/08/22 01/16/23 Nadia Goodson MD [address] [place] [address] PCP - General 01/17/23 documented as of this encounter
--- OUTSIDE RECORDS SUMMARY | 2025-07-02 10:35 | XMS_ITS | Encounter Summary ---
Author Organization [employer] ([place], [place], [place], [place]) Address [address] [place] [address] Care Team Providers Care Music Artist Name Role Phone Unavailable Primary Care Provider Unavailabl e Encounter Details Date Type Department Care Team (Late st Contact Info) Description 11/25/2020 Transcribed Document [facility] [place] [address] [place] [address] ProviderLeón MD [address] [place] [address] Social History Tobacco Use Types [...] - Historical ProviderMD - 11/25/2020 11:11 AM MACHINE PULLER ED POC - URINE HCG Entered On: 11/25/2020 14:40 EST Performed On: 11/25/2020 14:20 EST by LALI SEAY RN Point of Care Urine HCG HCG Result : Negative Internal Control Line Present : Yes Internal Control Background Clear : Yes LALI SEAY RN - 11/25/2020 14:39 EST Electronically signed by Jimena [facility] Conversion Director Public Cerner at 02/19/2023 9:37 AM CDT documented in this encounter Plan of Treatment Not on file documented as of this encounter Visit Diagnoses Not on filedocumented in this encounter
--- OUTSIDE RECORDS SUMMARY | 2025-07-02 10:36 | XMS_ITS | Clinical Summary ---
Author Organization [facility] Address [address] [place] [address] Care Team Providers Care Poultry Process Worker Name Role Phone Nadia Drummond MD Primary Care Provider [phone] Allergies Active Allergy Reactions Criticality Noted Date [...] PM EDT Performed at: 01 - [facility] [address] [facility], [place], [place] [id number] Liquid Fertilizer Servicer: Guillermo Choi PhD, Phone: [phone] Patient Fasting: N Charla Vegas PA-C LAB BLOOD ORDERABLES Final Result [facility] (AMBULATORY) [address] [place] [address], [facility] [address] [place] [address], from Last 3 Months or Most Recently Relevant to Health Maintenance Insurance Latasha KARON HUGHESTREE MANUEL [id number] [facility] PPO Care Teams Poultry Process Worker Relationship Specialty Start Date End Date Nadia Drummond MD PCP - General Family Medicine 07/15/20
--- OUTSIDE RECORDS SUMMARY | 2025-07-02 10:36 | XMS_ITS | Encounter Summary ---
Author Organization [employer] ([place], [place], [place], [place]) Address [address] [place] [address] Care Team Providers Care General Clerk Name Role Phone Unavailable Primary Care Provider Unavailabl e Encounter Details Date Type Department Care Team (Late st Contact Info) Description 11/25/2020 Transcribed Document [facility] [place] [address] [place] [address] ProviderLeón MD [address] [place] [address] Social History Tobacco Use Types [...] León Joseph MD - 11/25/2020 4:12 PM DIE TESTER [facility] [place] [address] PAM FENG :1995 Visit Time:11/25/2020 Your [...] range between ( 0.0 and 7.0 ) [place] #: 0.55 K/uL -- Normal range between ( 0.16 and 1.00 ) Eos #: 0.12 x10(3)/uL -- Normal range between ( 0.00 and 0.80 ) [place] %: 6.1 % -- Normal range between [...] instructions at home: Managing pain ??? Take qery-rxr-cvwrfhj and prescription medicines only as told by [...] Reviewed: 02/02/2018 Elsevier Patient Education ?? 2020 Rent Here. Emergency Awareness and Preventative Care STROKE is [...] Assistance with quitting is available by contacting 5-992-ZDYZAudioBetaNOW. This is a free resource providing counseling, [...] was given the opportunity to ask questions. Patient/Intermediate Manager Name: Patient/Intermediate Manager Signature: Relationship to Patient: Clinician/Hospital Intermediate Manager Signature: Please Provide a Telephone Number Where You Can Be Reached: Is it Permissible To Leave a Message? Date: documented in this encounter Plan of Treatment Not on file documented as of this encounter Visit Diagnoses Not on filedocumented in this encounter
--- OUTSIDE RECORDS SUMMARY | 2025-07-02 10:36 | XMS_ITS | Encounter Summary ---
Author Organization [employer] ([place], [place], [place], [place]) Address [address] [place] [address] Care Team Providers Care Auto Air Conditioning Installer Name Role Phone Unavailable Primary Care Provider Unavailabl e Encounter Details Date Type Department Care Team (Late st Contact Info) Description 09/24/2019 Transcribed Document [facility] [place] [facility] [place] [address] ProviderLeón MD [facility] [place] [address] Social History Tobacco Use Types [...] - Historical ProviderMD - 09/24/2019 6:15 AM BUSINESS SERVICES ASSOCIATE Patient: PAM FENG Age: 24 years Sex: [...] than usual; +abdominal cramping. No med taken MIXER FOAM RUBBER . History of Present Illness 24-year-old female [...] started fertility medication last Monday. Patient sees supervisor stage carpentry Chandan Lucas. Patient is with history of [...] EST Height Source Stated Height Entry Format [place] Height/Length, AZERI (ft) 5 ft Height/Length AZERI 5 Inch CLINICALHEIGHT 165.1 cm [place] Body Weight 56.59 kg Weight Source, ED Standing scale Weight Entry Format [place] Weight [place] lb 220 lb CLINICALWEIGHT 100 kg Body [...] Orders InProcess (In Process) Chlamydia Trachomatis/[facility], Sendout: Ordered Discharge: Ordered (In-Lab) Culture Urine: Completed .Automated Differential: .Urinalysis Microscopic: CBC w/ Auto Diff: CMP Comprehensive Metabolic Panel: ED Adult Fall Risk Assessment: ED Adult Triage: ED C-SSRS: ED Clinical Reconciliation: ED resource recovery specialist: HCG Urine Qualitative: LENNY Prep: NaCl 0.9% [...] Color Red Urine Appearance Cloudy Urine Specific [place] 1.007 Urine pH Dipstick 5.5 LOW Urine [...] % 27.7 % Lymph # 2.10 K/uL Loving % 7.9 % Loving # 0.60 K/uL Eos % 4.2 % Eos # 0.32 K/uL Baso % 0.4 % Baso # 0.03 K/uL Slide Review No IG# 0 x10(3)/uL IG% 0 % PT 9.6 Second(s) INR 0.9 PTT 25.4 Second(s) Wet Prep See Result LENNY Prep See Result Specimen Type swab . Radiology results: Radiology Results (Last 48 hours) [id number] -- 09/24/2019 05:36 US Transvaginal Non Ob [...] Rosenda Meyer MD Electronically signed by Jimena [facility] Conversion Named Account Executive Cerner at 02/19/2023 9:58 AM CDT documented in this encounter Plan of Treatment Not on file documented as of this encounter Visit Diagnoses Not on filedocumented in this encounter
--- OUTSIDE RECORDS SUMMARY | 2025-07-02 10:36 | XMS_ITS | Encounter Summary ---
Author Organization [employer] ([place], [place], [place], [place]) Address [address] [place] [address] Care Team Providers Care Industrial Psychology Teacher Name Role Phone Unavailable Primary Care Provider Unavailabl e Encounter Details Date Type Department Care Team (Late st Contact Info) Description 09/26/2019 Transcribed Document [facility] [place] [address] [place] [address] ProviderLeón MD [address] [place] [address] Social History Tobacco Use Types [...] - Historical ProviderMD - 09/26/2019 11:00 AM ACCIDENT INVESTIGATOR Urine Culture Collected: 09/24/2019 Complete Body site: Specimen Type: U CleanCatch 09/26/2019 09:56 09/26/2019 11:00 (KINGSLEY MEJIA PA-C) Reviewed by Provider, No further action required 3 or more organisms suggesting contamination documented in this encounter Plan of Treatment Not on file documented as of this encounter Visit Diagnoses Not on filedocumented in this encounter
--- OUTSIDE RECORDS SUMMARY | 2025-07-02 10:36 | XMS_ITS | Encounter Summary ---
Author Organization [employer] ([place], [place], [place], [place]) Address [address] [place] [address] Care Team Providers Care Golf Cart Repairer Name Role Phone Unavailable Primary Care Provider Unavailabl e Encounter Details Date Type Department Care Team (Late st Contact Info) Description 11/25/[address] [facility] [place] [facility] [place] [address] ProviderLeón MD [facility] [place] [address] Social History Tobacco Use Types [...] - León ProviderMD - 11/25/2020 4:27 PM WELDING ESTIMATOR ED Discharge Entered On: 11/25/2020 16:27 EST [...] 11/25/2020 16:27 EST Electronically signed by Jimena [facility] Conversion Electronics Specialist Cerner at 02/19/2023 9:39 AM CDT documented in this encounter Plan of Treatment Not on file documented as of this encounter Visit Diagnoses Not on filedocumented in this encounter
--- OUTSIDE RECORDS SUMMARY | 2025-07-02 10:36 | XMS_ITS | Encounter Summary ---
Author Organization [employer] ([place], [place], [place], [place]) Address [address] [place] [address] Care Team Providers Care Loan Representative Name Role Phone Unavailable Primary Care Provider Unavailabl e Encounter Details Date Type Department Care Team (Late st Contact Info) Description 11/25/2020 Transcribed Document [facility] [place] Family Medicine [address] [place] [address] ProviderLeón MD [address] [place] [address] Social History Tobacco Use Types [...] - Historical ProviderMD - 11/25/2020 10:52 AM SWITCH FOREMAN [place] Suicide Severity Rating Scale (C-SSRS) Entered On: 11/25/2020 14:40 EST Performed On: 11/25/2020 14:40 EST by LALI SEAY RN [place] Suicide Severity Rating Scale (C-SSRS) CSSRS Past [...]
--- OUTSIDE RECORDS SUMMARY | 2025-07-02 10:36 | XMS_ITS | Encounter Summary ---
Author Organization [employer] ([place], [place], [place], [place]) Address [address] [place] [address] Care Team Providers Care Supervisor Microbiology Technologists Name Role Phone Unavailable Primary Care Provider Unavailabl e Encounter Details Date Type Department Care Team (Late st Contact Info) Description 11/25/2020 Transcribed Document [facility] [place] Family Medicine [address] [place] [address] ProviderLeón MD [address] [place] [address] Social History Tobacco Use Types [...] - Historical ProviderMD - 11/25/2020 10:52 AM HEAD WAITER/WAITRESS BANQUET [place] Violence Assessment Entered On: 11/25/2020 14:03 [...]
== END 2025-07-02 23:59 | disposition home or self-care (01) ==
LOC: LAB 10:32
PROVIDERS: PCP Family Medicine; Visit Provider Obstetrics & Gynecology
DX: Z34.90 Encounter for supervision of normal pregnancy, unspecified, unspecified trimester (principal); N92.6 Irregular menstruation, unspecified; Z3A.00 Weeks of gestation of pregnancy not specified
CPT/HCPCS: 36415; 84702

== ENCOUNTER 2025-07-11 07:18 | Outpatient (CLI) | payer BC, SELFPAY ==
--- OUTSIDE RECORDS SUMMARY | 2021-05-03 12:23 | XMS_ITS | Encounter Summary ---
Author Organization [facility] Address [address] [place] [address] Care Team Providers Care Mobile Security Architect Name Role Phone Nadia Drummond MD Primary Care Provider [phone] Reason for Visit * Diagnostic Imaging (Routine) - Closed Specialty Diagnoses / Procedures Referred By Contac t Referred To Contact Radiology Diagnoses Hypothyroidism, unspecified type Procedures US Thyroid Cheri Harden DO [address] [place] [address] Phone: tel: fax: [facility] [address] [place] [address] Phone: tel: fax: Referral ID Status Reason Start Date Expiration Date Visits Re quested Visits Authorized [id number] Closed 05/03/2021 05/03/2022 1 1 Encounter Details Date Type Department Care Team (Late st Contact Info) Description 05/03/2021 12:23 PM EDT Hospital Encounter [facility] [address] [place] [address] Social History Tobacco Use Types [...] documented as of this encounter Care Teams Mobile Security Architect Relationship Specialty Start Date End Date Nadia Drummond MD PCP - General Family Medicine 07/15/20 documented as of this encounter
--- OUTSIDE RECORDS SUMMARY | 2022-10-13 10:42 | XMS_ITS | Encounter Summary ---
[facility] Address [address] [place] [address] Care Team Providers Care Sand Screener Name Role Phone Nadia Drummond MD Primary Care Provider [phone] Reason for Visit * Diagnostic Imaging (Routine) - Closed Specialty Diagnoses / Procedures Referred By Idalia caruso Referred To Contact Radiology Diagnoses Solitary thyroid nodule Procedures US Thyroid Cheri Harden DO 3084 [employer] CIR [address] [place] [address] Phone: tel: fax: Referral ID Status Reason Start Date Expiration Date Visits Re quested Visits Authorized [id number] Closed 10/13/2022 10/13/2023 1 1 Encounter Details Date Type Department Care Team (Late st Contact Info) Description 10/13/2022 9:42 AM EST Hospital Encounter [facility] ENDOCRINOLOGY 30[address] [facility] CIR [address] [place] [phone] Social History Tobacco Use Types Packs/Day Years [...] documented as of this encounter Care Teams Sand Screener Relationship Specialty Start Date End Date Nadia Drummond MD PCP - General Family Medicine 07/15/20 documented as of this encounter
--- OUTSIDE RECORDS SUMMARY | 2025-06-07 05:00 | XMS_ITS ---
Author Organization [facility] Address [address] [place] [address] Phone [phone] Care Team Providers Care Corn Husker Name Role Phone Page Velásquez Unavailable [phone] Migration, Provider Unavailable Unavailable REASON FOR VISIT EMR-Paul Encounters Encounter Location Date Provider Diagnosis [facility] [address] [place] [address] 06/07/2025 Provider Migration Plan Of Treatment No Information Progress Notes * PARDEEP FENGDOB:1995 (30 yo F)Acc No.[id number]:06/07/2025 Patient: PARDEEP CAST :1995 A ge:29 Y S ex:Female Address:[address] [place] [facility] [address] Subjective: * Chief Complaints: * E MR-Paul * * Date:
--- OUTSIDE RECORDS SUMMARY | 2025-06-08 05:00 | XMS_ITS ---
Author Organization [facility] Address [address] [place] [address] Phone [phone] Care Team Providers Care Coil Repair Technician Name Role Phone Page Velásquez Unavailable [phone] Migration, Provider Unavailable Unavailable REASON FOR VISIT EMR-Paul Medications Medication SIG (Take, Route, Frequency, Duration) Notes Start Date End Date Status Ondansetron HCl 4 MG Tablet Oral Active Drospirenone-Ethinyl Estradiol 3-0.03 MG Tablet Oral Active Norethindrone 0.35 MG Tablet Oral Active EUTHYROX 75 MCG TABLET *[facility] for eRx and Interaction Alerts* Active Saxenda 18 MG/3ML Solution Pen-injector Subcutaneous Active HYDROcodone-Acetaminophen 5-325 MG Tablet Oral Active metroNIDAZOLE 500 MG Tablet Oral Active Levothyroxine Sodium 25 MCG Tablet Oral Active hydroCHLOROthiazide 12.5 MG Tablet Oral Active BD PANKAJ 2ND GEN PEN NEEDLE 32 GAUGE X 5/32 *Reorder from [email or web address] for eRx and Interaction Alerts* Active Social History Social History Additional Details Category Social Info Options Details Migrated Social History Migrated Social History Tobacco Years: Never smoker 07/12/2021 Encounters Encounter Location Date Provider Diagnosis [facility] [address] [place] [address] 06/08/2025 Provider Migration Plan Of Treatment No Information Progress Notes * JUNG PREMAAYANACROWDOB:1995 (30 yo F)Acc No.[id number]:06/08/2025 Patient: PARDEEP CAST :1995 A ge:29 Y S ex:Female Address:[place], [address] Subjective: * Chief Complaints: * E MR-Paul [...] TABLET , Notes to Pharmacist: *Reorder from [facility] for eRx and Interaction Alerts*Saxenda 18 MG/3ML Solution Pen-injector Subcutaneous BD PANKAJ 2ND GEN PEN NEEDLE 32 GAUGE X 5/32 , Notes to Pharmacist: *Reorder from [facility] for eRx and Interaction Alerts*Levothyroxine Sodium 25 MCG Tablet Oral Norethindrone 0.35 MG Tablet Oral Taking HYDROcodone-Acetaminophen 5-325 MG Tablet Oral Taking hydroCHLOROthiazide 12.5 MG Tablet Oral Taking metroNIDAZOLE 500 MG Tablet Oral Taking Drospirenone- Ethinyl Estradiol 3-0.03 MG Tablet Oral Taking Ondansetron HCl 4 MG Tablet Oral Taking EUTHYROX 75 MCG TABLET , Notes to Pharmacist: *Reorder from [facility] for eRx and Interaction Alerts*Taking Saxenda 18 MG/3ML Solution Pen-injector Subcutaneous Taking BD PANKAJ 2ND GEN PEN NEEDLE 32 GAUGE X 5/32 , Notes to Pharmacist: *Reorder from [facility] for eRx and Interaction Alerts*Taking Levothyroxine Sodium 25 MCG Tablet Oral Taking Norethindrone 0.35 MG Tablet Oral * * Date:
--- OUTSIDE RECORDS SUMMARY | 2025-07-11 07:20 | XMS_ITS | Clinical Summary ---
Author Organization [facility] Address [address] [place] [address] Care Team Providers Care Commercial Roofing Estimator Name Role Phone Nadia Goodson MD Primary Care Provider [phone] Allergies Active Allergy Reactions Criticality Noted Date [...] Support Obstetrics & Gynecology [address] [place] [id number] Positive urine test (Primary Dx); Irregular menstruation, unspecified 04/30/2025 Results Follow-Up Obstetrics & Gynecology [address] [place] [address] Tres Ybarra MD 04/30/2025 Travel 04/29/2025 Results Follow-Up Obstetrics & Gynecology [address] [place] [address] Tres Ybarra MD 04/28/2025 1:45 PM EDT Clinical Support Obstetrics & Gynecology [address] [place] [id number] Irregular menstruation, unspecified (Primary Dx); Positive urine test 04/28/2025 Travel 04/28/2025 Telephone Obstetrics & Gynecology [address] [place] [id number] Tres Ybarra MD 04/18/2025 Results Follow-Up Obstetrics & Gynecology [address] [place] [id number] Tres Ybarra MD 04/17/2025 10:00 AM EDT Clinical Support Obstetrics & Gynecology [address] [place] [address] Irregular menstruation, unspecified (Primary Dx) 04/17/2025 Travel 04/14/2025 Telephone Obstetrics & Gynecology [address] [place] [id number] Tres Ybarra MD HCN - Patient Message from Last 3 Months Immunizations Immunization Administration [...] Recorded Patient Health Questionnaire-2 Score 0 04/08/2025 [place] Depression Scale Answer Date Recorded [place] Depression Scale Total 0 02/23/2024 The thought [...] Visit Obstetrics & Gynecology [address] [place] [address] Tres Ybarra MD [address] [place] [address] Health Maintenance Due Date Last Done Comments [facility]-/Child/Adol SDOH Screenings 1993 [facility]- SDOH Screenings 2011 [facility]-Adult SDOH Screenings 2011 [facility]-Hepatitis B Vaccines (1 of 3 - 19+ 3-dose series) 2012 [facility]-Varicella Vaccines (2 of 2 - 13+ 2-dose series) 05/27/2015 04/29/2015 HPV Vaccines (1 - 3-dose SCDM series) 2020 [facility]-[id number]-14 Vaccine (3 - Moderna risk series) 01/06/2021 [...] 10:4 0 AM EDT Irregular menstruation, unspecified REFERRED THINPREP PAP [...] 18.2(H) <5 mIU/mL 04/30/2025 1:38 PM EDT [facility] Blood Venous blood specimen / Unknown Venipuncture / Unknown 04/30/2025 10:10 AM EDT 04/30/2025 12:54 PM EDT Narrative [facility] - 04/30/2025 1:38 PM [...] ORDERABLES Final Resu lt Performing Organization Address [facility] [place] [address] * Progesterone (04/28/2025 2:12 PM EDT) Only the most recent of2 resultswithin the time period is included. Progesterone III 12.7 Reference Range not established ng/mL 04/28/2025 6:28 PM EDT [facility] Blood Venous blood specimen / Unknown Venipuncture / Unknown 04/28/2025 2:12 PM EDT 04/28/2025 5:50 PM EDT Narrative [facility] - 04/28/2025 6:28 PM EDT Menstrual Cycle Phase Reference Intervals: Females, 18 Y and up (ng/mL) Follicular <= 0.33 Ovulation <= 2.35 Luteal 0.5-21 Post-Menopausal <0.2 reference Intervals (ng/mL): 1st Trimester 11 - 45 2nd Trimester 25 - 84 3rd Trimester 58 - 214 us Tres Ybarra MD LAB BLOOD ORDERABLES Final Resu lt Performing Organization Address City/[facility]/[place] [address] * Thyroid Stimulating Hormone, Plasma (04/17/2025 10:40 AM EDT) Thyroid Stimulating Hormone, Plasma 2.90 0.40 - 4.20 uIU/mL 04/17/2025 6:39 PM EDT [facility] [...] ORDERABLES Final Resu lt Performing Organization Address [facility]/[place] [address] * Free T4, Plasma (04/17/2025 10:40 AM EDT) Free T4, Plasma 1.2 0.8 - 1.7 ng/dL 04/17/2025 6:39 PM EDT [facility] [...] MD LAB BLOOD [place] [address] * Referred ThinPrep Pap and HPV (SO) (02/06/2025 8:23 AM EDT) Pap, Source Cx/Vagina 02/13/2025 12:50 PM EDT [facility] ([place]) EER Referred ThinPrep Pap and HPV See Note 02/13/2025 12:50 PM EDT [facility] ([place]) PAP, THINPREP Normal 02/13/2025 12:50 PM EDT [facility] ([place]) High Risk HPV Normal 02/13/2025 12:50 PM EDT [facility] ([place]) Swab Vaginal and cervical cytologic material / Unknown Non-blood Collection / Unknown 02/06/2025 8:23 AM EDT 02/06/2025 12:54 PM EDT Narrative [facility] ([place]) - 02/13/2025 12:50 PM EDT Authorized individuals can access the [employer] Enhanced Report with an [employer] Connect account using the following link. Your local lab can assist you in obtaining the patient report if you don't have a Connect account. [email or web address] Performed By: [employer] [address] [place] [id number] Driver Trainee: Thompson Correa MD, PhD CLIA Number: [id number] SPECIMEN PART A. Cervical, Endocervical, Vaginal, ThinPrep Pap (Sys Dir) CYTOLOGY HX Date of Last Menstrual Period: N FINAL DIAGNOSIS INTERPRETATION: Negative for Intraepithelial Lesion or Malignancy. SPECIMEN ADEQUACY:Satisfactory for evaluation. Endocervical/transformation zone component present. Electronically Signed Out : [email or web address] Performed by: [email or web address] [address] [place] [address] [place] [address] Desire Alvarez MD, HR-HPV: Negative Test performed by the FDA-approved Hologic (Gen-Probe) APTIMA HPV test, which detects HPV genotypes: 16, 18, 31, 33, 35, 39, 45, 51, 52, 56, 58, 59, 66, and 68. This assay has been cleared for the specimen types listed below. Other specimen types have not been validated for this assay. -Clinician-collected ThinPrep Pap specimens. Performed by: [facility] [address] [place] [address] Desire Alvarez MD, us Tres Ybarra MD LAB REF LAB BLOOD AND FLUID ORD Final Result [facility] ([place]) [address] [place] [address] * HIV 1 & 2 Antibody/Antigen Screen (05/29/2023 10:20 AM EDT) Pathologist [facility] HIV 1 & 2 Antibody/Antigen Screen Non [...] ORDERABLES Final Resu lt Performing Organization Address City/[facility]/ZIP Co de Phone Number [facility] [address] [place] [address] * Hepatitis C Antibody (05/29/2023 10:20 AM EDT) Pathologist [facility] Hepatitis C Antibody Negative Negative 05/29/2023 2:02 PM EDT [facility] Blood Venous blood specimen / Unknown Venipuncture / Unknown 05/29/2023 10:20 AM EDT 05/29/2023 1:01 PM EDT Result Mary Ybarra MD LAB BLOOD ORDERABLES Final Resu lt Performing Organization Address City/[facility]/ZIP Co de Phone Number [facility] [address] [place] [address] from Last 3 Months or Most Recently Relevant to Health Maintenance Insurance [place] [place] [id number] ANTHEM Advance Directives * Full Code (Latest Code Status on File) Date Activated Date Inactivated Comments 08/09/2021 8:28 PM 08/10/2021 1:42 PM Question Answer Comments Patient has decision-making capacity? Yes * Full Code Date Activated Date Inactivated Comments 08/08/2021 3:47 AM 08/09/2021 12:51 AM Question Answer Comments Patient has decision-making capacity? Yes Care Teams Commercial Roofing Estimator Relationship Specialty Start Date End Date Nadia Goodson MD [facility] [place] [address] PCP - General 01/17/23
--- OUTSIDE RECORDS SUMMARY | 2025-07-11 07:20 | XMS_ITS | Encounter Summary ---
Author Organization [facility] Address [address] [place] [address] Care Team Providers Care Plate Setter Name Role Phone Nadia Goodson MD Primary Care Provider [phone] Encounter Details Date Type Department Care Team (Late st Contact Info) Description 04/18/2025 Results Follow-Up Obstetrics & Gynecology [address] [place] [address] Tres Ybarra MD [address] [place] [address] Social History Tobacco Use Types Packs/Day Years Used Date Smoking Tobacco: Never Smokeless Tobacco: Never Alcohol Use Standard Drinks/Week Comments No 0 (1 standard drink = 0.6 oz pur e alcohol) PHQ-2 Answer Date Recorded Patient Health Questionnaire-2 Score 0 04/08/2025 [place] Depression Scale Answer Date Recorded [place] Depression Scale Total 0 02/23/2024 The thought [...] EDT Procedure Visit Obstetrics & Gynecology [address] [place] [address] Tres Ybarra MD [address] [place] [address] documented as of this encounter [...] documented as of this encounter Care Teams Plate Setter Relationship Specialty Start Date End Date Nadia Goodson MD [address] [place] [address] PCP - General 01/17/23 documented as of this encounter
--- OUTSIDE RECORDS SUMMARY | 2025-07-11 07:21 | XMS_ITS | Encounter Summary ---
Author Organization [facility] Address [address] [place] [address] Care Team Providers Care Applied Exercise Physiologist Name Role Phone Pcp, No Primary Care Provider Nadia Todd MD Primary Care Provider [phone] Pcp, No Primary Care Provider Nadia Todd MD Primary Care Provider [phone] Encounter Details Date Type Department Care Team (Late st Contact Info) Description 10/31/2019 [facility] Encounter Historical [facility] [address] [place] [address] Provider, [address] [address] Social History Tobacco Use Types [...] EDT Procedure Visit Obstetrics & Gynecology [address] [place] [address] Tres Ybarra MD [address] [place] [address] documented as of this encounter Visit Diagnoses Not on filedocumented in this encounter Care Teams Applied Exercise Physiologist Relationship Specialty Start Date End Date Pcp, No [address] [place] [address] PCP - General 08/07/21 08/08/21 Nadia Goodson MD [address] [place] [address] PCP - General 08/09/21 08/09/21 Pcp, No [address] [place] [address] PCP - General Family Medicine 07/08/22 01/16/23 Nadia Goodson MD [address] [place] [address] PCP - General 01/17/23 documented as of this encounter
--- OUTSIDE RECORDS SUMMARY | 2025-07-11 07:21 | XMS_ITS | Encounter Summary ---
Author Organization [employer] ([place], [place], [place], [place]) Address [address] [place] [address] Care Team Providers Care Borderer Name Role Phone Unavailable Primary Care Provider Unavailabl e Encounter Details Date Type Department Care Team (Late st Contact Info) Description 11/25/2020 Transcribed Document [facility] [place] [facility] [place] [address] ProviderLeón MD [facility] [place] [address] Social History Tobacco Use Types [...] - León ProviderMD - 11/25/2020 10:52 AM BILLBOARD ERECTOR ED Triage Entered On: 11/25/2020 11:06 EST Performed On: 11/25/2020 11:03 EST by ALBERTO CHAVES CONDUIT HELPER Triage Across the Room Chief Complaint : pt states NAGY for last 2 days, worst NAGY of life, pressure in back of head, no other symptoms noted, Triage Date/Time : 11/25/2020 11:03 EST ALBERTO CHAVES RN - 11/25/2020 11:03 EST DCP GENERIC CODE Tracking Acuity : 3 - Urgent Tracking Group : [facility] ED ALBERTO CHAVES RN - 11/25/2020 11:03 EST Mode of Arrival : Ambulatory Transported to ED by : Private vehicle To Room Via : Wheelchair Accompanied By : Unaccompanied ED Vital Signs : Document Height & Weight : Document ED Allergies : Document ED Reason for Visit : Document Tetanus Immunization : Less than 5 years ALEBRTO CHAVES RN - 11/25/2020 11:03 EST Infectious [...] 11/25/2020 11:06:17 EST) Problems(Active) Asthma (SNOMED CT :126397258 ) Name of Problem: Asthma ; Recorder: RAJNI RAMIREZ RN; Confirmation: Confirmed ; Classification: Medical ; Code: [id number] ; Contributor System: PowerChart ; Last Updated: 09/01/2018 18:05 EDT ; Life Cycle Date: 09/01/2018 ; Life Cycle Status: Active ; Vocabulary: SNOMED CT Hypothyroid (SNOMED CT :53265899 ) Name of Problem: Hypothyroid ; Recorder: RAJNI RAMIREZ RN; Confirmation: Confirmed ; Classification: Medical ; Code: [id number] ; Contributor System: BiomondeChart ; Last Updated: 09/01/2018 18:05 EDT ; Life Cycle Date: 09/01/2018 ; Life Cycle Status: Active ; Vocabulary: SNOMED CT PCOS (polycystic ovarian syndrome) (SNOMED CT :963970347 ) Name of Problem: PCOS (polycystic ovarian syndrome) ; Recorder: RAJNI RAMIREZ RN; Confirmation: Confirmed ; Classification: Medical ; Code: [id number] ; Contributor System: iFormulary ; Last Updated: 09/01/2018 18:05 EDT ; Life Cycle Date: 09/01/2018 ; Life Cycle Status: Active ; Vocabulary: SNOMED CT Diagnoses(Active) Headache Date: 11/25/2020 ; Diagnosis Type: Reason For Visit ; Confirmation: Complaint of ; Clinical Dx: Headache ; Classification: Medical ; Clinical Service: Emergency medicine ; Code: PNED ; Probability: 0 ; Diagnosis Code: [id number] ED Height and Weight Height Source : Stated Height Entry Format : [place] Height, Feet : 5 ft(Converted to: 152 cm, 60 Inch) Height, Inches : 5 Inch(Converted to: 0 ft 5 Inch, 12.70 cm) Clinical Height : 165.1 cm Weight Source, ED : Critical estimated dosing weight Weight Entry Format : [place] Weight, Pounds : 220 lb Clinical Dosing Weight : 100 kg Body Surface Area (BSA) : 2.06 m2 Body Mass Index : 36.7 kg/m2 (HI) [place] Body Weight (IBW) : 56.59 kg ALBERTO [...]
--- OUTSIDE RECORDS SUMMARY | 2025-07-11 07:21 | XMS_ITS | Encounter Summary ---
Author Organization [employer] ([place], [place], [place], [place]) Address [address] [place] [address] Care Team Providers Care Automotive Sales Manager Name Role Phone Unavailable Primary Care Provider Unavailabl e Encounter Details Date Type Department Care Team (Late st Contact Info) Description 09/24/2019 Transcribed Document [facility] [place] Family Medicine [address] [place] [address] ProviderLeón MD [address] [place] [address] Social History Tobacco Use Types [...] - Historical ProviderMD - 09/24/2019 5:36 AM MANUFACTURING FINANCE MANAGER [place] Suicide Severity Rating Scale (C-SSRS) Entered On: 09/24/2019 6:25 EST Performed On: 09/24/2019 6:24 EST by RENETTA NIXON RN [place] Suicide Severity Rating Scale (C-SSRS) CSSRS Past [...]
--- OUTSIDE RECORDS SUMMARY | 2025-07-11 07:21 | XMS_ITS | Encounter Summary ---
Author Organization [employer] ([place], [place], [place], [place]) Address [address] [place] [address] Care Team Providers Care Component Technician Name Role Phone Unavailable Primary Care Provider Unavailabl e Encounter Details Date Type Department Care Team (Late st Contact Info) Description 09/24/2019 Transcribed Document [facility] [place] [facility] [address] ProviderLenó MD [facility] [place] [address] Social History Tobacco Use Types Packs/Day Years Used Date Smoking Tobacco: Never Assessed Comments Unknown Sex and Gender Information Value Date Recorded Sex Assigned at Not on file Legal Sex Female 6:09 PM CDT Gender Identity Not on file Sexual Orientation Not on file documented as of this encounter Miscellaneous Notes * Cerner Conversion Note - Lóen ProviderMD - 09/24/2019 5:36 AM DIETARY AID ED Triage Entered On: 09/24/2019 5:47 EST Performed On: 09/24/2019 5:42 EST by MINDI WONG RISK MANAGER Triage Across the Room Triage Date/Time : 09/24/2019 5:42 EST Chief Complaint : Pt c/o fever and vaginal bleeding x2 days. Pt stated she is on her period but the bleeding is more than usual; +abdominal cramping. No med taken ENTERPRISE PROJECT MANAGER MINDI WONG, RN - 09/24/2019 5:42 [...] 09/24/2019 05:47:35 EST) Problems(Active) Asthma (SNOMED CT :482251390 ) Name of Problem: Asthma ; Recorder: RAJNI RAMIREZ RN; Confirmation: Confirmed ; Classification: Medical ; Code: 559144322 ; Contributor System: DesignWineChart ; Last Updated: 09/01/2018 18:05 EDT ; Life Cycle Date: 09/01/2018 ; Life Cycle Status: Active ; Vocabulary: SNOMED CT Hypothyroid (SNOMED CT :03656688 ) Name of Problem: Hypothyroid ; Recorder: RAJNI RAMIREZ RN; Confirmation: Confirmed ; Classification: Medical ; Code: 70320507 ; Contributor System: PowerChart ; Last Updated: 09/01/2018 18:05 EDT ; Life Cycle Date: 09/01/2018 ; Life Cycle Status: Active ; Vocabulary: SNOMED CT PCOS (polycystic ovarian syndrome) (SNOMED CT :231700186 ) Name of Problem: PCOS (polycystic ovarian syndrome) ; Recorder: RAJNI RAMIREZ RN; Confirmation: Confirmed ; Classification: Medical ; Code: [id number] ; Contributor System: Porch ; Last Updated: 09/01/2018 18:05 EDT ; Life Cycle Date: 09/01/2018 ; Life Cycle Status: Active ; Vocabulary: SNOMED CT Diagnoses(Active) Abdominal pain Date: 09/24/2019 ; Diagnosis Type: Reason For Visit ; Confirmation: Complaint of ; Clinical Dx: Abdominal pain ; Classification: Medical ; Clinical Service: Emergency medicine ; Code: PNED ; Probability: 0 ; Diagnosis Code: [id number] Fever Date: 09/24/2019 ; Diagnosis Type: Reason For Visit ; Confirmation: Complaint of ; Clinical Dx: Fever ; Classification: Medical ; Clinical Service: Emergency medicine ; Code: PNED ; Probability: 0 ; Diagnosis Code: [id number] Vaginal bleeding Date: 09/24/2019 ; Diagnosis Type: Reason For Visit ; Confirmation: Complaint of ; Clinical Dx: Vaginal bleeding ; Classification: Medical ; Clinical Service: Emergency medicine ; Code: PNED ; Probability: 0 ; Diagnosis Code: [id number] ED Height and Weight Height Source : Stated Height Entry Format : Fajardo Height, Feet : 5 ft(Converted to: 152 cm, 60 Inch) Height, Inches : 5 Inch(Converted to: 0 ft 5 Inch, 12.70 cm) Clinical Height : 165.1 cm Weight Source, ED : Standing scale Weight Entry Format : [place] Weight, Pounds : 220 lb Clinical Dosing Weight : 100 kg Body Surface Area (BSA) : 2.06 m2 Body Mass Index : 36.7 kg/m2 (HI) [place] Body Weight (IBW) : 56.59 kg MINDI [...] - 09/24/2019 5:42 EST Electronically signed by [facility] Conversion Enterprise Project Manager Cerner at 02/19/2023 9:39 AM CDT documented in this encounter Plan of Treatment Not on file documented as of this encounter Visit Diagnoses Not on filedocumented in this encounter
--- OUTSIDE RECORDS SUMMARY | 2025-07-11 07:21 | XMS_ITS | Encounter Summary ---
Author Organization [employer] ([place], [place], [place], [place]) Address [address] [place] [address] Care Team Providers Care Asphalt Surface Heater Operator Name Role Phone Unavailable Primary Care Provider Unavailabl e Encounter Details Date Type Department Care Team (Late st Contact Info) Description 09/24/2019 Transcribed Document [facility] [place] Medicine [facility] [place] [address] ProviderLeón MD [facility] [place] [address] Social History Tobacco Use Types [...] - Historical ProviderMD - 09/24/2019 6:15 AM PHYSICIAN NEONATOLOGY Patient: PAM FNEG Age: 24 years Sex: Female : 1995 [...] than usual; +abdominal cramping. No med taken ENGINEER/CONDUCTOR . History of Present Illness 24-year-old female [...] started fertility medication last Monday. Patient sees tire shop manager Chandan Lucas. Patient is with history of [...] EST Height Source Stated Height Entry Format Brown Height/Length, QATARI (ft) 5 ft Height/Length QATARI 5 Inch CLINICALHEIGHT 165.1 cm [place] Body Weight 56.59 kg Weight Source, ED Standing scale Weight Entry Format Brown Weight [place] lb 220 lb CLINICALWEIGHT 100 kg Body [...] Orders InProcess (In Process) Chlamydia Trachomatis[facility], Sendout: Ordered Discharge: Ordered (In-Lab) Culture Urine: Completed .Automated Differential: .Urinalysis Microscopic: CBC w/ Auto Diff: CMP Comprehensive Metabolic Panel: ED Adult Fall Risk Assessment: ED Adult Triage: ED C-SSRS: ED Clinical Reconciliation: ED customer service and sales consultant: HCG Urine Qualitative: LENNY Prep: NaCl 0.9% [...] Color Red Urine Appearance Cloudy Urine Specific [place] 1.007 Urine pH Dipstick 5.5 LOW Urine [...] % 27.7 % Lymph # 2.10 K/uL Hooker % 7.9 % Hooker # 0.60 K/uL Eos % 4.2 % Eos # 0.32 K/uL Baso % 0.4 % Baso # 0.03 K/uL Slide Review No IG# 0 x10(3)/uL IG% 0 % PT 9.6 Second(s) INR 0.9 PTT 25.4 Second(s) Wet Prep See Result LENNY Prep See Result Specimen Type swab . Radiology results: Radiology Results (Last 48 hours) [id number] -- 09/24/2019 05:36 US Transvaginal Non Ob [...] Rosenda Meyer MD Electronically signed by Jimena [facility] Conversion Telesales Consultant Cerner at 02/19/2023 9:58 AM CDT documented in this encounter Plan of Treatment Not on file documented as of this encounter Visit Diagnoses Not on filedocumented in this encounter
--- OUTSIDE RECORDS SUMMARY | 2025-07-11 07:21 | XMS_ITS | Encounter Summary ---
Author Organization [employer] ([place], [place], [place], [place]) Address [address] [place] [address] Care Team Providers Care Pyrotechnician Name Role Phone Unavailable Primary Care Provider Unavailabl e Encounter Details Date Type Department Care Team (Late st Contact Info) Description 09/26/2019 Transcribed Document [facility] [place] Family Medicine [address] [place] [address] ProviderLeón MD [address] [place] [address] Social History Tobacco Use Types [...] - Historical ProviderMD - 09/26/2019 11:00 AM PERSONAL COMPUTER SPECIALIST Urine Culture Collected: 09/24/2019 Complete Body site: Specimen Type: U CleanCatch 09/26/2019 09:56 09/26/2019 11:00 (KINGSLEY MEJIA PA-C) Reviewed by Provider, No further action required 3 or more organisms suggesting contamination documented in this encounter Plan of Treatment Not on file documented as of this encounter Visit Diagnoses Not on filedocumented in this encounter
--- OUTSIDE RECORDS SUMMARY | 2025-07-11 07:21 | XMS_ITS | Encounter Summary ---
Author Organization [employer] ([place], [place], [place], [place]) Address [address] [place] [address] Care Team Providers Care Protection Chief Industrial Plant Name Role Phone Unavailable Primary Care Provider Unavailabl e Encounter Details Date Type Department Care Team (Late st Contact Info) Description 09/24/2019 Transcribed Document [facility] [place] Family Medicine [address] [place] [address] ProviderLeón MD [facility] [place] [address] Social History Tobacco Use Types [...] León Joseph MD - 09/24/2019 5:36 AM HYDRATE CONTROL TENDER ED Assessment Entered On: 09/24/2019 6:25 EST Performed On: 09/24/2019 6:24 EST by RENETTA NIXON RN ED Quick Look Assessment Level of Consciousness : Alert, Awake RENETTA NIXON RN - 09/24/2019 6:24 EST ED General-Functional Assess Information Obtained From : Patient Communication Barrier : None Primary Language : Ethiopian Any Spiritual/Cultural Needs or Requests : No [...] RN) EENT Assessment EENT Assessment WDL : [facility] HUSSAINRENETTA AGUAYO - 09/24/2019 6:24 EST Cardiovascular ASMT, ED Cardiovascular Assessment WDL : [facility] RENETTA NIXON RN - 09/24/2019 6:24 EST Pulses Grid Radial Pulse, Left : 2+ normal Radial Pulse, Right : 2+ normal RENETTA NIXON - 09/24/2019 6:24 EST Respiratory Respiratory Assessment WDL : [facility] RENETTA NIXON RN - 09/24/2019 6:24 EST Breath Sounds Assessment Grid All Lobes Breath Sounds : Clear RENETTA NIXON RN - 09/24/2019 6:24 EST Gastrointestinal ED Gastrointestinal Assessment WDL : [facility] with exceptions Gastrointestinal Symptoms : Abdominal pain RENETTA NIXON RN - 09/24/2019 6:24 EST Genitourinary Assessment, ED Genitourinary Assessment WDL : [facility] with exceptions Genitourinary Symptoms : Vaginal bleeding RENETTA NIXON RN - 09/24/2019 6:24 EST Musculoskeletal Musculoskeletal Assessment WDL : [facility] RENETTA NIXON RN - 09/24/2019 6:24 EST Integumentary Assessment Integumentary Assessment WDL : [facility] RENETTA NIXON RN - 09/24/2019 6:24 EST Neurologic ASMT, ED Neurologic Assessment WDL : [facility] RENETTA NIXON RN - 09/24/2019 6:24 EST documented in this encounter Plan of Treatment Not on file documented as of this encounter Visit Diagnoses Not on filedocumented in this encounter
--- OUTSIDE RECORDS SUMMARY | 2025-07-11 07:21 | XMS_ITS | Referral Summary ---
Author Organization [employer] ([place], [place], [place], [place]) Address [address] [place] [address] Care Team Providers Care Residential Electrician Name Role Phone Unavailable Primary Care [...]
--- OUTSIDE RECORDS SUMMARY | 2025-07-11 07:21 | XMS_ITS | Encounter Summary ---
Author Organization [employer] ([place], [place], [place], [place]) Address [address] [place] [address] Care Team Providers Care Adjunct Faculty Instructor Name Role Phone Unavailable Primary Care Provider Unavailabl e Encounter Details Date Type Department Care Team (Late st Contact Info) Description 09/24/2019 Transcribed Document [facility] [place] Family Medicine [address] [place] [address] ProviderLeón MD [address] [place] [address] Social History Tobacco Use Types [...] - Historical ProviderMD - 09/24/2019 7:56 AM STRUCTURAL MANAGER Vital Signs ED Entered On: 09/24/2019 8:38 [...]
--- OUTSIDE RECORDS SUMMARY | 2025-07-11 07:21 | XMS_ITS | Encounter Summary ---
Author Organization [email or web address] ([place], [place], [place], [place]) Address [address] [place] [address] Care Team Providers Care Aws Consultant Name Role Phone Unavailable Primary Care Provider Unavailabl e Encounter Details Date Type Department Care Team (Late st Contact Info) Description 09/24/2019 Transcribed Document [facility] [place] [address] [place] [address] ProviderLeón MD [address] [place] [address] Social History Tobacco Use Types [...] León Joseph MD - 09/24/2019 10:05 AM DELIVERY STOCK CLERK [place] [id number] PAM FENG :1995 Visit Time:09/24/2019 Your Visit [...] and or persistent vomiting. Where: [facility] [facility] [address] [place] [address]- [facility] (1) Allergies amoxicillin (C/O [...] range between ( 1.0 and 7.0 ) Gilliam #: 0.60 K/uL -- Normal range between ( 0.24 and 0.82 ) Eos #: 0.32 K/uL -- Normal range between ( 0.04 and 0.54 ) Gilliam %: 7.9 % -- Normal range between [...] ) Urine Bilirubin Dipstick: Negative Urine Specific [place]: 1.007 -- Normal range between ( 1.005 [...] 10/23/2006 Document Revised: 11/24/2017 Document Reviewed: 11/24/2017 [employer] Interactive Patient Education ?? 2019 [employer]. Emergency Awareness and Preventative Care STROKE is [...] Assistance with quitting is available by contacting 0-706-FODB-NOW. This is a free resource providing counseling, [...] was given the opportunity to ask questions. Patient/Animal Cruelty Investigator Name: Patient/Animal Cruelty Investigator Signature: Relationship to Patient: Clinician/Hospital Animal Cruelty Investigator Signature: Please Provide a Telephone Number Where You Can Be Reached: Is it Permissible To Leave a Message? Date: documented in this encounter Plan of Treatment Not on file documented as of this encounter Visit Diagnoses Not on filedocumented in this encounter
--- OUTSIDE RECORDS SUMMARY | 2025-07-11 07:21 | XMS_ITS | Clinical Summary ---
Author Organization [employer] ([place], [place], [place], [place]) Address [address] [place] [address] Care Team Providers Care Floor Associate Name Role Phone Unavailable Primary Care Provider [...]
--- OUTSIDE RECORDS SUMMARY | 2025-07-11 07:21 | XMS_ITS | Encounter Summary ---
Author Organization [facility] Address [address] [place] [address] Care Team Providers Care Raw Products Director Name Role Phone Nadia Goodson MD Primary Care Provider [phone] Encounter Details Date Type Department Care Team (Late st Contact Info) Description 04/29/2025 Results Follow-Up Obstetrics & Gynecology [address] [place] [address] Tres Ybarra MD [address] [place] [address] Social History Tobacco Use Types Packs/Day Years Used Date Smoking Tobacco: Never Smokeless Tobacco: Never Alcohol Use Standard Drinks/Week Comments No 0 (1 standard drink = 0.6 oz pur e alcohol) PHQ-2 Answer Date Recorded Patient Health Questionnaire-2 Score 0 04/08/2025 Carpenter Depression Scale Answer Date Recorded Carpenter Depression Scale Total 0 02/23/2024 The thought [...] EDT Procedure Visit Obstetrics & Gynecology [address] [place] [address] Tres Ybarra MD [address] [place] [address] documented as of this encounter [...] documented as of this encounter Care Teams Raw Products Director Relationship Specialty Start Date End Date Nadia Goodson MD [address] [place] [address] PCP - General 01/17/23 documented as of this encounter
--- OUTSIDE RECORDS SUMMARY | 2025-07-11 07:21 | XMS_ITS | Encounter Summary ---
Author Organization [facility] Address [address] [place] [address] Care Team Providers Care Balance Screwhead Polisher Name Role Phone Nadia Goodson MD Primary Care Provider [phone] Encounter Details Date Type Department Care Team (Late st Contact Info) Description 04/30/2025 Results Follow-Up Obstetrics & Gynecology [address] [place] [address] Tres Ybarra MD [address] [place] [address] Social History Tobacco Use Types Packs/Day Years Used Date Smoking Tobacco: Never Smokeless Tobacco: Never Alcohol Use Standard Drinks/Week Comments No 0 (1 standard drink = 0.6 oz pur e alcohol) PHQ-2 Answer Date Recorded Patient Health Questionnaire-2 Score 0 04/08/2025 [place] Depression Scale Answer Date Recorded [place] Depression Scale Total 0 02/23/2024 The thought [...] EDT Procedure Visit Obstetrics & Gynecology [address] [place] [address] Tres Ybarra MD [address] [place] [address] documented as of this encounter [...] documented as of this encounter Care Teams Balance Screwhead Polisher Relationship Specialty Start Date End Date Nadia Goodson MD [address] [place] [address] PCP - General 01/17/23 documented as of this encounter
--- OUTSIDE RECORDS SUMMARY | 2025-07-11 07:21 | XMS_ITS | Encounter Summary ---
Author Organization [employer] ([place], [place], [place], [place]) Address [address] [place] [address] Care Team Providers Care Repair Tech Name Role Phone Unavailable Primary Care Provider Unavailabl e Encounter Details Date Type Department Care Team (Late st Contact Info) Description 09/24/2019 Transcribed Document [facility] [place] Family Medicine [address] [place] [address] ProviderLeón MD [address] [place] [address] Social History Tobacco Use Types [...] - Historical ProviderMD - 09/24/2019 9:17 AM JEWEL CORNER BRUSHING MACHINE OPERATOR Electronically signed by Jimena [facility] Conversion Dispensary Technician Cerner at 02/19/2023 9:55 AM CDT documented in this encounter Plan of Treatment Not on file documented as of this encounter Visit Diagnoses Not on filedocumented in this encounter
--- OUTSIDE RECORDS SUMMARY | 2025-07-11 07:21 | XMS_ITS | Encounter Summary ---
Author Organization [facility] ([place], [place], [place], [place]) Address [address] [place] [address] Care Team Providers Care Satellite Tv Technician Installer Name Role Phone Unavailable Primary Care Provider Unavailabl e Encounter Details Date Type Department Care Team (Late st Contact Info) Description 11/25/2020 Transcribed Document [facility] [place] [address] [place] [address] ProviderLeón [place] [address] Social History Tobacco Use Types [...] - León ProviderMD - 11/25/2020 10:52 AM ELECTRIC METER INSTALLER HELPER ED Assessment Entered On: 11/25/2020 14:03 EST Performed On: 11/25/2020 14:01 EST by LALI SEAY RN ED Quick Look Assessment Level of Consciousness : Alert, Awake Affect/Behavior : Appropriate, Calm, Cooperative Orientation : Oriented x 4 Skin Temperature : Warm Skin Description : Dry, [place] LALI SEAY RN - 11/25/2020 14:01 EST ED General-Functional Assess Information Obtained From : Patient Preferred Communication Mode : Verbal Communication Barrier : None Primary Language : French Any Spiritual/Cultural Needs or Requests : No [...] RN - 11/25/2020 14:01 EST [place]elo Coma [place] Best Motor Response : Obey commands [place] Best Verbal Response : Oriented [place] Eye Opening Response : Spontaneous [place] Score : 15 LALI SEAY RN - 11/25/2020 14:01 EST Electronically signed by Jimena [facility] Conversion Health Information Clerk Cerner at 02/19/2023 10:00 AM CDT documented in this encounter Plan of Treatment Not on file documented as of this encounter Visit Diagnoses Not on filedocumented in this encounter
--- OUTSIDE RECORDS SUMMARY | 2025-07-11 07:21 | XMS_ITS | Encounter Summary ---
Author Organization [employer] ([place], [place], [place], [place]) Address [address] [place] [address] Care Team Providers Care Practice Assistant Name Role Phone Unavailable Primary Care Provider Unavailabl e Encounter Details Date Type Department Care Team (Late st Contact Info) Description 11/25/2020 Transcribed Document [facility] [place] Family Medicine [facility] [address] ProviderLeón MD [address] [place] [address] Social History Tobacco Use Types [...] - Historical ProviderMD - 11/25/2020 3:34 PM SHIPPING TECHNICIAN Electronically signed by Jimena [facility] Conversion Meat Boner Cerner at 02/19/2023 9:52 AM CDT documented in this encounter Plan of Treatment Not on file documented as of this encounter Visit Diagnoses Not on filedocumented in this encounter
--- OUTSIDE RECORDS SUMMARY | 2025-07-11 07:21 | XMS_ITS | Encounter Summary ---
Author Organization [employer] ([place], [place], [place], [place]) Address [address] [place] [address] Care Team Providers Care Manager Support Name Role Phone Unavailable Primary Care Provider Unavailabl e Encounter Details Date Type Department Care Team (Late st Contact Info) Description 11/25/2020 Transcribed Document [facility] [place] Family Medicine [address] [place] [address] ProviderLeón MD [address] [place] [address] Social History Tobacco Use Types [...] - Historical ProviderMD - 11/25/2020 11:11 AM BEEF BONER ED POC - URINE HCG Entered On: 11/25/2020 14:40 EST Performed On: 11/25/2020 14:20 EST by LALI SEAY RN Point of Care Urine HCG HCG Result : Negative Internal Control Line Present : Yes Internal Control Background Clear : Yes LALI SEAY RN - 11/25/2020 14:39 EST Electronically signed by Jimena [facility] Conversion Airfield Engineer Officer Cerner at 02/19/2023 9:37 AM CDT documented in this encounter Plan of Treatment Not on file documented as of this encounter Visit Diagnoses Not on filedocumented in this encounter
--- OUTSIDE RECORDS SUMMARY | 2025-07-11 07:21 | XMS_ITS | Patient Health Record ---
Author Organization [facility] Address [address] [place] [address] Phone [phone] Care Team Providers Care Pre Press Operator Name Role Phone Page Velásquez Unavailable [phone] Migration, Provider Unavailable Unavailable Reason For Referral [...] Active EUTHYROX 75 MCG TABLET *Reorder from [employer] for eRx and Interaction Alerts* Active hydroCHLOROthiazide 12.5 MG Tablet Oral Active BD PANKAJ 2ND GEN PEN NEEDLE 32 GAUGE X / *Reorder from [employer] for eRx and Interaction Alerts* Active Saxenda 18 MG/3ML Solution Pen-injector Subcutaneous Active Social History Social History Additional Details Category Social Info Options Details Migrated Social History Migrated Social History Tobacco Years: Never smoker 07/12/2021 Problems Problem Type SNOMED Code ICD Code Onset Dates Problem Status W/U Status Risk Notes Problem History of suspected exposure to biological agent (79054394587967 ) Encounter for observation for suspected exposure to other biological agents ruled out (Z03.818) Active confirmed Encounters Encounter Location Date Provider Diagnosis [address] [address] 06/07/2025 Provider Migration [address] [address] 06/08/2025 Provider Migration Plan Of Treatment No Information Insurance Providers Payer Name Payer Address Payer Phone Subscriber Number Group Number Insured Name Patient Relationship to Insured Coverage Start Date Coverage End Date [employer] ([place]) [address] [place] [address] [id number] JANE ALBARADO Spouse - patient is the spouse of the insured
--- OUTSIDE RECORDS SUMMARY | 2025-07-11 07:21 | XMS_ITS | Encounter Summary ---
Author Organization [facility] Address [address] [id number] Care Team Providers Care Pastry Cook Apprentice Name Role Phone Pcp, No Primary Care Provider Nadia Todd MD Primary Care Provider [phone] Pcp, No Primary Care Provider Nadia Todd MD Primary Care Provider [phone] Encounter Details Date Type Department Care Team (Late Contact Info) Description 11/05/2019 [facility] OTTR [facility] Historical OTTR [address] [place] [address] Marla Sin, RN [facility] [id number] [address] [place] [address] Social History Tobacco Use Types Packs/Day Years [...] EDT Procedure Visit Obstetrics & Gynecology [address] [place] [address] Tres Ybarra MD [address] [place] [address] documented as of this encounter Visit Diagnoses Not on filedocumented in this encounter Care Teams Pastry Cook Apprentice Relationship Specialty Start Date End Date Pcp, No [address] [place] [address] PCP - General 08/07/21 08/08/21 Nadia Goodson MD [address] [place], [place] [id number] PCP - General 08/09/21 08/09/21 Pcp, No [address] [place] [address] PCP - General Family Medicine 07/08/22 01/16/23 Nadia Goodson MD [address] [place] [address] PCP - General 01/17/23 documented as of this encounter
--- OUTSIDE RECORDS SUMMARY | 2025-07-11 07:21 | XMS_ITS | Encounter Summary ---
Author Organization [employer] ([place], [place], [place], [place]) Address [address] [place] [address] Care Team Providers Care Cylinder Inspector And Tester Name Role Phone Unavailable Primary Care Provider Unavailabl e Encounter Details Date Type Department Care Team (Late st Contact Info) Description 09/24/2019 Transcribed Document [facility] [place] Medicine [address] [place] [address] ProviderLeón MD [address] [place] [address] Social History Tobacco Use Types [...] León Joseph MD - 09/24/2019 8:33 AM BOARD SAW RUNNER Pain Assessment Entered On: 09/24/2019 9:40 EST Performed On: 09/24/2019 9:40 EST by EGNTRY CLARK RN Intervention Information: ibuprofen Performed by [...]
--- OUTSIDE RECORDS SUMMARY | 2025-07-11 07:21 | XMS_ITS | Encounter Summary ---
Author Organization [employer] ([place], [place], [place], [place]) Address [address] [place] [address] Care Team Providers Care Dye House Wheel Operator Name Role Phone Unavailable Primary Care Provider Unavailabl e Encounter Details Date Type Department Care Team (Late st Contact Info) Description 11/25/2020 Transcribed Document [facility] Radiology [address] [place] [address] Virgie Armendariz MD [facility] [place] [address] Social History Tobacco Use Types Packs/Day Years [...] at maximum was 10 /10. , just COD CLERK . The degree at present is moderate, [...] EST Height Source Stated Height Entry Format Vermillion Height/Length, ALBANIAN (ft) 5 ft Height/Length ALBANIAN 5 Inch CLINICALHEIGHT 165.1 cm Ripley Body Weight 56.59 kg Weight Source, ED Critical estimated dosing weight Weight Entry Format Vermillion Weight Mongolian lb 220 lb CLINICALWEIGHT 100 kg Body [...] % 26.1 % Lymph # 2.37 x10(3)/uL Blackford % 6.1 % Blackford # 0.55 K/uL Eos % 1.3 % Eos # 0.12 x10(3)/uL Baso % 0.3 % Baso # 0.03 x10(3)/uL Slide Review No IG# 0.03 x10(3)/uL IG% 0.30 % . Radiology results: Radiology Results (Last 48 hours) [id number] -- 11/25/2020 10:52 CT Head WO (11/25/2020 [...] instructions. Notes: I certify that the Physician General Engineer performed the services as delegated. I agree with the assessment, treatment plan and disposition of the patient as recorded by the Physician General Engineer. This document was created with TweepsMap dictation software and unidentified cleaner assistant errors may be present.. . documented in this encounter Plan of Treatment Not on file documented as of this encounter Visit Diagnoses Not on filedocumented in this encounter
--- OUTSIDE RECORDS SUMMARY | 2025-07-11 07:21 | XMS_ITS | Patient Health Record ---
Author Organization [facility] Address [address] [facility] [address] [place] [address] Care Team Providers Care Pick Up Truck Driver Name Role Phone Maggie Tenorio [phone] Allergies Allergen (clinical drug ingredient) Drug/Non Drug Allergy documented on EMR Reaction Allergy Type Onset Date Status amoxicillin AMOXICILLIN (uncoded) Unspecified Allergy 12/2019 Active Reason For Referral No Information Social History Social History Additional Details Category Social Info Options Details Miscellaneous: Sexually active: SEXUAL AC TIV: Current Problems Problem Type SNOMED Code ICD Code Onset Dates Problem Status W/U Status Risk Notes Problem Noninflammatory disorder of the vagina (74089591) Bloody vaginal discharge (N89.8) 02/03/20 21 Active confirmed Vaginal odor Plan Of Treatment [...]
--- OUTSIDE RECORDS SUMMARY | 2025-07-11 07:22 | XMS_ITS | Encounter Summary ---
Author Organization [employer] ([place], [place], [place], [place]) Address [address] [place] [address] Care Team Providers Care Lawn Specialist Name Role Phone Unavailable Primary Care Provider Unavailabl e Encounter Details Date Type Department Care Team (Late st Contact Info) Description 11/25/2020 Transcribed Document [facility] [place] [address] [place] [address] ProviderLeón MD [address] [place] [address] Social History Tobacco Use Types [...] - Historical ProviderMD - 11/25/2020 10:52 AM MATERIAL HANDLING WAREHOUSE SUPERVISOR Broset Violence Assessment Entered On: 11/25/2020 14:03 [...]
--- OUTSIDE RECORDS SUMMARY | 2025-07-11 07:22 | XMS_ITS | Encounter Summary ---
Author Organization [employer] ([place], [place], [place], [place]) Address [address] [place] [address] Care Team Providers Care Coding Quality Coordinator Name Role Phone Unavailable Primary Care Provider Unavailabl e Encounter Details Date Type Department Care Team (Late st Contact Info) Description 11/25/2020 Transcribed Document [facility] [place] [facility] [place] [address] ProviderLeón MD [facility] [place] [address] Social History Tobacco Use Types [...] - León ProviderMD - 11/25/2020 4:27 PM CHILD SUPPORT SPECIALIST ED Discharge Entered On: 11/25/2020 16:27 EST [...] AMBER HANSEN Rn - 11/25/2020 16:27 EST documented in this encounter Plan of Treatment Not on file documented as of this encounter Visit Diagnoses Not on filedocumented in this encounter
--- OUTSIDE RECORDS SUMMARY | 2025-07-11 07:22 | XMS_ITS | Encounter Summary ---
Author Organization [employer] ([place], [place], [place], [place]) Address [address] [place] [address] Care Team Providers Care Rotary Drum Dyer Name Role Phone Unavailable Primary Care Provider Unavailabl e Encounter Details Date Type Department Care Team (Late st Contact Info) Description 11/25/2020 Transcribed Document [facility] [place] [address] [place] [address] ProviderLeón MD [address] [place] [address] Social History Tobacco Use Types [...] León Joseph MD - 11/25/2020 4:12 PM LATCHER [facility] [place] [address] PAM FENG :1995 Visit Time:11/25/2020 Your [...] range between ( 0.0 and 7.0 ) Garden #: 0.55 K/uL -- Normal range between ( 0.16 and 1.00 ) Eos #: 0.12 x10(3)/uL -- Normal range between ( 0.00 and 0.80 ) Garden %: 6.1 % -- Normal range between [...] instructions at home: Managing pain ??? Take qnpc-bvn-kesfipy and prescription medicines only as told by [...] Reviewed: 02/02/2018 Elsevier Patient Education ?? 2020 [employer]. Emergency Awareness and Preventative Care STROKE is [...] Assistance with quitting is available by contacting 4-618-XDNRDNP [employer]. This is a free resource providing counseling, [...] was given the opportunity to ask questions. Patient/Manager Land Name: Patient/Manager Land Signature: Relationship to Patient: Clinician/Hospital Manager Land Signature: Please Provide a Telephone Number Where You Can Be Reached: Is it Permissible To Leave a Message? Date: documented in this encounter Plan of Treatment Not on file documented as of this encounter Visit Diagnoses Not on filedocumented in this encounter
--- OUTSIDE RECORDS SUMMARY | 2025-07-11 07:22 | XMS_ITS | Clinical Summary ---
Author Organization [facility] Address [address] [place] [address] Care Team Providers Care Director Of Assessing Name Role Phone Nadia Drummond MD Primary Care Provider [phone] Allergies Active Allergy Reactions Criticality Noted Date [...] PANEL 02/15/2023 02/15/2022, 04/07/2020 COVID-19 Vaccine ( - season) 07/07/202501/2021, 11/11/2020 INFLUENZA VACCINE 08/06/2025 07/17/2023 HEPATITIS C [...] PM EDT Performed at: 01 - [facility] [address] [facility], [place], [place] [id number] Agency Director: Guillermo Choi PhD, Phone: [phone] Patient Fasting: N Charla Vegas PA-C LAB BLOOD ORDERABLES Final Result [facility] ([facility]BUL[facility]) [address] [place] [address], [facility] [address] [place] [address], from Last 3 Months or Most Recently Relevant to Health Maintenance Insurance Latasha KARON HUGHESTREE MANUEL [id number] [facility] PPO Care Teams Director Of Assessing Relationship Specialty Start Date End Date Nadia Drummond MD PCP - General Family Medicine 07/15/20
--- OUTSIDE RECORDS SUMMARY | 2025-07-11 07:22 | XMS_ITS | Encounter Summary ---
Author Organization [employer] ([place], [place], [place], [place]) Address [address] [place] [address] Care Team Providers Care Customer Marketing Manager Name Role Phone Unavailable Primary Care Provider Unavailabl e Encounter Details Date Type Department Care Team (Late st Contact Info) Description 11/25/2020 Transcribed Document [facility] [place] [address] [place] [address] ProviderLeón MD [address] [place] [address] Social History Tobacco Use [...] - Historical ProviderMD - 11/25/2020 10:52 AM PRODUCT EXAMINER [place] Suicide Severity Rating Scale (C-SSRS) Entered On: 11/25/2020 14:40 EST Performed On: 11/25/2020 14:40 EST by LALI SEAY RN [place] Suicide Severity Rating Scale (C-SSRS) CSSRS Past [...]
--- NOTE | 2025-07-11 07:30 | US_ITS ---
PROCEDURE: US OB TRANSVAGINAL CLINICAL INDICATION: pelvic pain/early COMPARISON: US US TRANSVAGINAL from 07/30/[address] ABDOMEN PELVIS W CON from 09/09/[address] ABDOMEN PELVIS W CON from 02/17/2024 FINDINGS: Transvaginal sonographic images of the pelvis were obtained. From her last menstrual period she is 5weeks 4days. An intrauterine gestational sac is present. A pole is not yet seen. This correlates to a gestational age of 5weeks 6days. heart tones are not yet seen. Yolk sac is noted. The yolk sac measures 2.9mm. The right ovary is seen and appears normal. There is a trace amount of free fluid in the right adnexa. The left ovary is seen and appears normal. There appears to be a corpus luteum in the left ovary. There is a trace amount of fluid around the left ovary. There is no fluid in the cul-de-sac. IMPRESSION: 1. There is a gestational sac within the uterine cavity. A yolk sac is seen. 2. A pole is not yet seen and heart rate activity is not seen. 3. There is a corpus luteum in the left ovary. The right ovary appears normal. There is a trace amount of free fluid in the right and left adnexa. 4. No fluid in the cul-de-sac. 5. Suggest repeat scan in 1 week to confirm viability. Dictated by: Eduar Garcia MD 07/12/2025 06:51 Eduar Garcia MD in [place] 07/12/2025 06:51
== END 2025-07-11 23:59 | disposition home or self-care (01) ==
PROVIDERS: PCP Family Medicine; Visit Provider Obstetrics & Gynecology
DX: O34.81 Maternal care for other abnormalities of pelvic organs, first trimester (principal); O26.21 Pregnancy care for patient with recurrent pregnancy loss, first trimester; N83.12 Corpus luteum cyst of left ovary; R10.2 Pelvic and perineal pain; Z3A.01 Less than 8 weeks gestation of pregnancy
CPT/HCPCS: 76817

== ENCOUNTER 2025-07-24 13:46 | Outpatient (CLI) | payer BC, SELFPAY ==
--- OUTSIDE RECORDS SUMMARY | 2021-05-03 12:23 | XMS_ITS | Encounter Summary ---
[facility] Address [address] [place] [address] Care Team Providers Care Sheep And Wheat Farmer Name Role Phone Nadia Drummond MD Primary Care Provider [phone] Reason for Visit * Diagnostic Imaging (Routine) - Closed Specialty Diagnoses / Procedures Referred By Contac t Referred To Contact Radiology Diagnoses Hypothyroidism, unspecified type Procedures US Thyroid Cehri Harden DO [address] [place] [address] Phone: tel: fax: [facility] [address] [place] [address] Phone: tel: fax: Referral ID Status Reason Start Date Expiration Date Visits Re quested Visits Authorized [id number] Closed 05/03/2021 05/03/2022 1 1 Encounter Details Date Type Department Care Team (Late st Contact Info) Description 05/03/2021 12:23 PM EDT Hospital Encounter [facility] [address] [place] [address] Social History Tobacco Use Types [...] documented as of this encounter Care Teams Sheep And Wheat Farmer Relationship Specialty Start Date End Date Nadia Drummond MD PCP - General Family Medicine 07/15/20 documented as of this encounter
--- OUTSIDE RECORDS SUMMARY | 2022-10-13 10:42 | XMS_ITS | Encounter Summary ---
Author [facility] Address [address] [place] [address] Care Team Providers Care Mate Relief Name Role Phone Nadia Drmumond MD Primary Care Provider [phone] Reason for Visit * Diagnostic Imaging (Routine) - Closed Specialty Diagnoses / Procedures Referred By Idalia caruso Referred To Contact Radiology Diagnoses Solitary thyroid nodule Procedures US Thyroid Cheri Harden DO 3084 [employer] CIR [address] [place] [address] Phone: tel: fax: Referral ID Status Reason Start Date Expiration Date Visits Re quested Visits Authorized [id number] Closed 10/13/2022 10/13/2023 1 1 Encounter Details Date Type Department Care Team (Late st Contact Info) Description 10/13/2022 9:42 AM EST Hospital Encounter [facility] ENDOCR[facility]OLOGY [address] [place] [phone] Social History Tobacco Use Types Packs/Day Years [...] documented as of this encounter Care Teams Mate Relief Relationship Specialty Start Date End Date Nadia Drummond MD PCP - General Family Medicine 07/15/20 documented as of this encounter
--- OUTSIDE RECORDS SUMMARY | 2025-07-24 13:48 | XMS_ITS | Encounter Summary ---
Author Organization [facility] Address [address] [place] [address] Care Team Providers Care Blue Split Trimmer Name Role Phone Nadia Goodson MD Primary Care Provider [phone] Encounter Details Date Type Department Care Team (Late st Contact Info) Description 04/30/2025 Results Follow-Up Obstetrics & Gynecology [address] [place] [address] Tres Ybarra MD [address] [place] [address] Social History Tobacco Use Types Packs/Day Years Used Date Smoking Tobacco: Never Smokeless Tobacco: Never Alcohol Use Standard Drinks/Week Comments No 0 (1 standard drink = 0.6 oz pur e alcohol) PHQ-2 Answer Date Recorded Patient Health Questionnaire-2 Score 0 04/08/2025 Magazine Depression Scale Answer Date Recorded Magazine Depression Scale Total 0 02/23/2024 The thought [...] EDT Procedure Visit Obstetrics & Gynecology [address] [place] [address] Tres Ybarra MD [address] [place] [address] documented as of this encounter [...] documented as of this encounter Care Teams Blue Split Trimmer Relationship Specialty Start Date End Date Nadia Goodson MD [address] [place] [address] PCP - General 01/17/23 documented as of this encounter
--- OUTSIDE RECORDS SUMMARY | 2025-07-24 13:48 | XMS_ITS | Encounter Summary ---
Author Organization [facility] Address [address] [place] [address] Care Team Providers Care Cutter Brake Lining Name Role Phone Nadia Goodson MD Primary Care Provider [phone] Encounter Details Date Type Department Care Team (Late st Contact Info) Description 04/18/2025 Results Follow-Up Obstetrics & Gynecology [address] [place] [address] Tres Ybarra MD [address] [place] [address] Social History Tobacco Use Types Packs/Day Years Used Date Smoking Tobacco: Never Smokeless Tobacco: Never Alcohol Use Standard Drinks/Week Comments No 0 (1 standard drink = 0.6 oz pur e alcohol) PHQ-2 Answer Date Recorded Patient Health Questionnaire-2 Score 0 04/08/2025 Dawson Depression Scale Answer Date Recorded Dawson Depression Scale Total 0 02/23/2024 The thought [...] EDT Procedure Visit Obstetrics & Gynecology [address] [place] [address] Tres Ybarra MD [address] [place] [address] documented as of this encounter [...] documented as of this encounter Care Teams Cutter Brake Lining Relationship Specialty Start Date End Date Nadia Goodson MD [address] [place] [address] PCP - General 01/17/23 documented as of this encounter
--- OUTSIDE RECORDS SUMMARY | 2025-07-24 13:48 | XMS_ITS | Encounter Summary ---
Author Organization [facility] Address [address] [place] [address] Care Team Providers Care Chief Supply Chain Officer Name Role Phone Nadia Goodson MD Primary Care Provider [phone] Encounter Details Date Type Department Care Team (Late st Contact Info) Description 04/29/2025 Results Follow-Up Obstetrics & Gynecology [address] [place] [address] Tres Ybarra MD [address] [place] [address] Social History Tobacco Use Types Packs/Day Years Used Date Smoking Tobacco: Never Smokeless Tobacco: Never Alcohol Use Standard Drinks/Week Comments No 0 (1 standard drink = 0.6 oz pur e alcohol) PHQ-2 Answer Date Recorded Patient Health Questionnaire-2 Score 0 04/08/2025 Rose Bud Depression Scale Answer Date Recorded Rose Bud Depression Scale Total 0 02/23/2024 The thought [...] EDT Procedure Visit Obstetrics & Gynecology [address] [place] [address] Tres Ybarra MD [address] [place] [address] documented as of this encounter [...] documented as of this encounter Care Teams Chief Supply Chain Officer Relationship Specialty Start Date End Date Nadia Goodson MD [address] [place] [address] PCP - General 01/17/23 documented as of this encounter
--- OUTSIDE RECORDS SUMMARY | 2025-07-24 13:48 | XMS_ITS | Encounter Summary ---
Author Organization [facility] Address [address] [id number] Care Team Providers Care Cable Armorer Name Role Phone Pcp, No Primary Care Provider Nadia Todd MD Primary Care Provider [phone] Pcp, No Primary Care Provider Nadia Todd MD Primary Care Provider [phone] Encounter Details Date Type Department Care Team (Late Contact Info) Description 11/05/2019 [facility] Historical OTTR [address] [place] [address] Marla Sin, RN [id number] [address] [place] [address] Social History Tobacco Use Types Packs/Day Years [...] EDT Procedure Visit Obstetrics & Gynecology [address] [place] [address] Tres Ybarra MD [address] [place] [address] documented as of this encounter Visit Diagnoses Not on filedocumented in this encounter Care Teams Cable Armorer Relationship Specialty Start Date End Date Pcp, No [address] [place] [address] PCP - General 08/07/21 08/08/21 Nadia Goodson MD [address] [place], [place] [id number] PCP - General 08/09/21 08/09/21 Pcp, No [address] [place] [address] PCP - General Family Medicine 07/08/22 01/16/23 Nadia Goodson MD [address] [place] [address] PCP - General 01/17/23 documented as of this encounter
--- OUTSIDE RECORDS SUMMARY | 2025-07-24 13:48 | XMS_ITS | Encounter Summary ---
Author Organization [facility] Address [address] [place] [address] Care Team Providers Care Hydrogen Operator Name Role Phone Pcp, No Primary Care Provider Nadia Todd MD Primary Care Provider [phone] Pcp, No Primary Care Provider Nadia Todd MD Primary Care Provider [phone] Encounter Details Date Type Department Care Team (Late st Contact Info) Description 10/31/2019 [facility] Encounter Historical OTTR [address] [place] [address] Provider, [address] [address] Social History Tobacco Use Types [...] EDT Procedure Visit Obstetrics & Gynecology [address] [place] [address] Tres Ybarra MD [address] [place] [address] documented as of this encounter Visit Diagnoses Not on filedocumented in this encounter Care Teams Hydrogen Operator Relationship Specialty Start Date End Date Pcp, No [address] [place] [address] PCP - General 08/07/21 08/08/21 Nadia Goodson MD [address] [place] [address] PCP - General 08/09/21 08/09/21 Pcp, No [address] [place] [address] PCP - General Family Medicine 07/08/22 01/16/23 Nadia Goodson MD [address] [place] [address] PCP - General 01/17/23 documented as of this encounter
--- OUTSIDE RECORDS SUMMARY | 2025-07-24 13:48 | XMS_ITS | Clinical Summary ---
Author Organization [facility] Address [address] [address] Care Team Providers Care Jewelry Mechanic Name Role Phone Nadia Goodson MD Primary Care Provider [phone] Allergies Active Allergy Reactions Criticality Noted Date [...] Support Obstetrics & Gynecology [address] [place] [address] Positive urine test (Primary Dx); Irregular menstruation, unspecified 04/30/2025 Results Follow-Up Obstetrics & Gynecology [address] [place] [address] Tres Ybarra MD 04/30/2025 Travel 04/29/2025 Results Follow-Up Obstetrics & Gynecology [address] [place] [address] Tres Ybarra MD 04/28/2025 1:45 PM EDT Clinical Support Obstetrics & Gynecology [address] [place] [address] Irregular menstruation, unspecified (Primary Dx); Positive urine test 04/28/2025 Travel 04/28/2025 Telephone Obstetrics & Gynecology [address] [place] [address] Tres Ybarra MD from Last 3 Months Immunizations Immunization Administration [...] Recorded Patient Health Questionnaire-2 Score 0 04/08/2025 Romney Depression Scale Answer Date Recorded Romney Depression Scale Total 0 02/23/2024 The thought [...] Visit Obstetrics & Gynecology [address] [place] [address] Tres Ybarra MD [address] [place] [address] Health Maintenance Due Date Last Done Comments [facility]-Infant/Child/Adol SDOH Screenings 1993 [facility]- SDOH Screenings 2011 [facility]-Adult SDOH Screenings 2011 [facility]-Hepatitis B Vaccines (1 of 3 - 19+ 3-dose series) 2012 [facility]-Varicella Vaccines (2 of 2 - 13+ 2-dose series) 05/27/2015 04/29/2015 HPV Vaccines (1 - 3-dose SCDM series) 2020 [facility]-[id number]-01 Vaccine (3 - Moderna risk series) 01/06/2021 12/09/2020, 11/11/2020 [facility]-Influenza Vaccine (#1) 2025 07/17/2023 [facility]-Depression Screening 04/08/2026 025, 02/06/2025, 02/23/2024 [facility]-Pap Smear 02/07/2028 02/06/2025, 12/0 07/2022, 09/04/2014, Additional history exists [facility]-Cervical Cancer [...] EDT Irregular menstruation, unspecified Positive urine test REFERRED THINPREP PAP AND HPV (SO) Routine [...] 18.2(H) <5 mIU/mL 04/30/2025 1:38 PM EDT [facility] Blood Venous blood specimen / Unknown Venipuncture / Unknown 04/30/2025 10:10 AM EDT 04/30/2025 12:54 PM EDT Narrative [facility] - 04/30/2025 1:38 PM EDT [...] MD LAB BLOOD ORDERABLES Final Resu lt [facility] [address] [place] [address] * Progesterone (04/28/2025 2:12 PM EDT) Progesterone III 12.7 Reference Range not established ng/mL 04/28/2025 6:28 PM EDT [facility] Blood Venous blood specimen / Unknown Venipuncture / Unknown 04/28/2025 2:12 PM EDT 04/28/2025 5:50 PM EDT Narrative [facility] - 04/28/2025 6:28 PM EDT Menstrual Cycle Phase Reference Intervals: Females, 18 Y and up (ng/mL) Follicular <= 0.33 Ovulation <= 2.35 Luteal 0.5-21 Post-Menopausal <0.2 reference Intervals (ng/mL): 1st Trimester 11 - 45 2nd Trimester 25 - 84 3rd Trimester 58 - 214 us Tres Ybarra MD LAB BLOOD ORDERABLES Final Resu lt [facility] [address] [place] [address] * Referred ThinPrep Pap and HPV (SO) (02/06/2025 8:23 AM EDT) Pap, Source Cx/Vagina 02/13/2025 12:50 PM EDT [facility] EER Referred ThinPrep Pap and HPV See Note 02/13/2025 12:50 PM EDT [facility] PAP, THINPREP Normal 02/13/2025 12:50 PM EDT [facility] High Risk HPV Normal 02/13/2025 12:50 PM EDT [facility] Swab Vaginal and cervical cytologic material / Unknown Non-blood Collection / Unknown 02/06/2025 8:23 AM EDT 02/06/2025 12:54 PM EDT Narrative [facility] - 02/13/2025 12:50 PM EDT Authorized individuals can access the [facility] Enhanced Report with an [facility] Connect account using the following link. Your local lab can assist you in obtaining the patient report if you don't have a Connect account. [email or web address] Performed By: [facility] [address] [place] [id number] Surveillance Analyst: Thompson Correa MD, PhD CLIA Number: [id number] SPECIMEN PART A. Cervical, Endocervical, Vaginal, ThinPrep Pap (Well Tender) CYTOLOGY HX Date of Last Menstrual Period: N FINAL DIAGNOSIS INTERPRETATION: Negative for Intraepithelial Lesion or Malignancy. SPECIMEN ADEQUACY:Satisfactory for evaluation. Endocervical/transformation zone component present. Electronically Signed Out : [email or web address] Performed by: [facility] [address] [place] [address] [place] [address] Desire Alvarez MD, HR-HPV: Negative Test performed by the FDA-approved Tot[employer] Interactive Weather (Gen-Probe) APTIMA HPV test, which detects HPV genotypes: 16, 18, 31, 33, 35, 39, 45, 51, 52, 56, 58, 59, 66, and 68. This assay has been cleared for the specimen types listed below. Other specimen types have not been validated for this assay. -Clinician-collected ThinPrep Pap specimens. Performed by: [facility] [address] [place] [address] [place] [address] Desire Alvarez MD, Tres Ybarra MD LAB REF LAB BLOOD AND FLUID ORD Final Result [facility] [place]) [address] [place] [address] * HIV 1 & 2 Antibody/Antigen Screen (05/29/2023 10:20 AM EDT) HIV 1 & 2 Antibody/Antigen Screen Non Reactive Non Reactive 05/29/2023 2:06 PM EDT [facility] Comment:Screening for HIV 1 & 2 antibodies, and P24 antigen is NONREACTIVE. No confirmatory testing is required. Blood Venous blood specimen / Unknown Venipuncture / Unknown 05/29/2023 10:20 AM EDT 05/29/2023 1:01 PM EDT Result Mary Ybarra MD LAB BLOOD ORDERABLES Final Resu lt [facility] [address] [place] [address] * Hepatitis C Antibody (05/29/2023 10:20 AM EDT) Hepatitis C Antibody Negative Negative 05/29/2023 2:02 PM EDT [facility] Blood Venous blood specimen / Unknown Venipuncture / Unknown 05/29/2023 10:20 AM EDT 05/29/2023 1:01 PM EDT Result Mary Ybarra MD LAB BLOOD ORDERABLES Final Resu lt Performing Organization Address City/[facility] Co de Phone Number HEALTHCARE [facility] [address] [place] [address] from Last 3 Months or Most Recently Relevant to Health Maintenance Insurance [facility] Advance Directives * Full Code (Latest Code Status on File) Date Activated Date Inactivated Comments 08/09/2021 8:28 PM 08/10/2021 1:42 PM Question Answer Comments Patient has decision-making capacity? Yes * Full Code Date Activated Date Inactivated Comments 08/08/2021 3:47 AM 08/09/2021 12:51 AM Question Answer Comments Patient has decision-making capacity? Yes Care Teams Jewelry Mechanic Relationship Specialty Start Date End Date Nadia Goodson MD [address] [place] [address] PCP - General 01/17/23
--- OUTSIDE RECORDS SUMMARY | 2025-07-24 13:49 | XMS_ITS | Clinical Summary ---
Author Organization [facility] Address [address] [place] [address] Care Team Providers Care Reel Repairer Name Role Phone Nadia Drummond MD Primary Care Provider [phone] Allergies Active Allergy Reactions Criticality Noted Date [...] PHYSICAL 05/31/2017 LIPID PANEL 02/15/2023 02/15/2022, 04/07/2020 INFLUENZA VACCINE 06/06/2025 07/17/2023 HEPATITIS C SCREENING Completed 05/29/2023 Procedures [...] - 02/16/2022 3:08 PM EDT Performed at: [address] [place] [address] [id number] Diamond Setter: Guillermo Choi PhD, Phone: [phone] Patient Fasting: N Charla Vegas PA-C LAB BLOOD ORDERABLES Final Result [facility] ([facility]BULATORY) [address] [place] [address], [place] [phone] [facility] [address] [place] [address], [place] [phone] from Last 3 Months or Most Recently Relevant to Health Maintenance Insurance [facility] PPO Member Subscriber Plan / Payer (Ef fective 2015-Present) Name:Pam Phillips Relation to Subscriber:Spouse Name:JEREMIAH PHILLIPS Date of :1993 Address: [facility] Payer ID:[id number] (NAIC) Type:Not on file Address: [facility] [id number] [place] [id number] Care Teams Reel Repairer Relationship Specialty Start Date End Date Nadia Drummond MD PCP - General Family Medicine 07/15/20
[2025-07-24 14:19] LABS: Hematocrit 31.4 % (37.0-47.0); Hemoglobin 9.7 g/dL (12.2-16.2); Immature Granulocytes % 0.3 %; Mean Corpuscular HGB Conc 30.9 g/dL (31.8-35.4); Mean Corpuscular Hemoglobin 21.9 pg (27.0-31.2); Mean Corpuscular Volume 70.9 fl (81-99); Nucleated Red Blood Cells % 0 %; Platelet Count 222 K/mm3 (142-424); Red Blood Count 4.43 M/mm3 (4.20-5.40); Red Cell Distribution Width-SD 35.3 fL; White Blood Count 8.7 K/mm3 (4.8-10.8)
[2025-07-24 15:04] LABS: T4 (Thyroxine) 9.4 ug/dl (5.53-11.0)
[2025-07-24 15:17] LABS: Thyroid Stimulating Hormone 0.85 uIU/mL (0.465-4.68)
[2025-07-24 15:36] LABS: Hepatitis C Ab Qual. W/ RFX NEGATIVE (Negative)
[2025-07-25 04:08] LABS: Hepatitis B Surface Antigen Negative (Negative)
[2025-07-25 06:33] LABS: Rubella Antibodies, IgG 1.57 index (Immune >0.99)
[2025-07-25 10:43] LABS: RPR W/RFX Titers Nonreactive (Nonreactive)
== END 2025-07-24 23:59 | disposition home or self-care (01) ==
PROVIDERS: PCP Family Medicine; Visit Provider Obstetrics & Gynecology
DX: Z34.91 Encounter for supervision of normal pregnancy, unspecified, first trimester (principal); E28.2 Polycystic ovarian syndrome; R55 Syncope and collapse; Z87.42 Personal history of other diseases of the female genital tract
CPT/HCPCS: 36415; 84436; 84443; 84480; 85025; 86592; 86762; 86803; 86850; 87086; 87340; 87389

== ENCOUNTER 2025-07-30 14:07 | Emergency (ER) | payer BC, SELFPAY ==
--- OUTSIDE RECORDS SUMMARY | 2021-05-03 12:23 | XMS_ITS | Encounter Summary ---
[facility] Address [address] [place] [address] Care Team Providers Care Curtains And Draperies Salesperson Name Role Phone Nadia Drummond MD Primary Care Provider [phone] Reason for Visit * Diagnostic Imaging (Routine) - Closed Specialty Diagnoses / Procedures Referred By Contac t Referred To Contact Radiology Diagnoses Hypothyroidism, unspecified type Procedures US Thyroid Cheri Harden DO [address] [place] [address] Phone: tel: fax: [facility] [address] [place] [address] Phone: tel: fax: Referral ID Status Reason Start Date Expiration Date Visits Re quested Visits Authorized [id number] Closed 05/03/2021 05/03/2022 1 1 Encounter Details Date Type Department Care Team (Late st Contact Info) Description 05/03/2021 12:23 PM EDT Hospital Encounter [facility] [address] [place] [address] Social History Tobacco Use Types [...] Description 11/03/2025 10:30 AM EST Office Visit [facility] [address] [facility] [place] [address] Cheri Harden, [address] [facility] [address] [place] [address] documented as of this encounter Procedures Procedure [...] documented as of this encounter Care Teams Curtains And Draperies Salesperson Relationship Specialty Start Date End Date Nadia Drummond MD PCP - General Family Medicine 07/15/20 documented as of this encounter
--- OUTSIDE RECORDS SUMMARY | 2022-10-13 10:42 | XMS_ITS | Encounter Summary ---
[facility] [address] [place] [address] Care Team Providers Care Quill Skinner Name Role Phone Nadia Drummond MD Primary Care Provider [phone] Reason for Visit * Diagnostic Imaging (Routine) - Closed Specialty Diagnoses / Procedures Referred By Idalia caruso Referred To Contact Radiology Diagnoses Solitary thyroid nodule Procedures US Thyroid Cheri Harden DO 3084 [facility]BURGPlastiPureJAMES [facility] JUAN [address] [place] [address] Phone: tel: fax: Referral ID Status Reason Start Date Expiration Date Visits Re quested Visits Authorized [id number] Closed 10/13/2022 10/13/2023 1 1 Encounter Details Date Type Department Care Team (Late st Contact Info) Description 10/13/2022 9:42 AM EST Hospital Encounter [facility] ENDOCRINOLOGY 3084 [facility] JUAN [address] [place] [phone] Social History Tobacco Use Types Packs/Day [...] 10:30 AM EST Office Visit [facility] ENDOCRINOLOGY 3084 [facility] [address] [place] [address] Cheri Harden, DO [address] [address] documented as of this encounter Procedures Procedure [...] documented as of this encounter Care Teams Quill Skinner Relationship Specialty Start Date End Date Nadia Drummond MD PCP - General Family Medicine 07/15/20 documented as of this encounter
--- OUTSIDE RECORDS SUMMARY | 2025-06-07 05:00 | XMS_ITS ---
Author Organization [facility] Address [address] [place] [address] Phone [phone] Care Team Providers Care Break Out Worker Name Role Phone Page Velásquez Unavailable [phone] Migration, Provider Unavailable Unavailable REASON FOR VISIT EMR-Paul Encounters Encounter Location Date Provider Diagnosis [facility] [address] [place] [address] 06/07/2025 Provider Migration Plan Of Treatment No Information Progress Notes * PARDEEP FENGDOB:1995 (30 yo F)Acc No.[id number]:06/07/2025 Patient: PARDEEP CAST :1995 A ge:29 Y S ex:Female Address:[address] [facility] [facility] [address] Subjective: * Chief Complaints: * E MR-Paul * * Date:
--- OUTSIDE RECORDS SUMMARY | 2025-06-08 05:00 | XMS_ITS ---
Author Organization [facility] katy [facility] Address [address] [place] [address] Phone [phone] Care Team Providers Care Class A Regional Truck Driver Name Role Phone Page Velásquez Unavailable [phone] Migration, Provider Unavailable Unavailable REASON FOR VISIT EMR-Paul Medications Medication SIG (Take, Route, Frequency, Duration) Notes Start Date End Date Status Ondansetron HCl 4 MG Tablet Oral Active Drospirenone-Ethinyl Estradiol 3-0.03 MG Tablet Oral Active Norethindrone 0.35 MG Tablet Oral Active EUTHYROX 75 MCG TABLET *Re[facility] from [facility] for eRx and Interaction Alerts* Active Saxenda 18 MG/3ML Solution Pen-injector Subcutaneous Active HYDROcodone-Acetaminophen 5-325 MG Tablet Oral Active metroNIDAZOLE 500 MG Tablet Oral Active Levothyroxine Sodium 25 MCG Tablet Oral Active hydroCHLOROthiazide 12.5 MG Tablet Oral Active BD PANKAJ 2ND GEN PEN NEEDLE 32 GAUGE X 32 *Reorder from [employer] for eRx and Interaction Alerts* Active Social History Social History Additional Details Category Social Info Options Details Migrated Social History Migrated Social History Tobacco Years: Never smoker 07/12/2021 Encounters Encounter Location Date Provider Diagnosis [facility] [address] [place] [address] 06/08/2025 Provider Migration Plan Of Treatment No Information Progress Notes * JUNG PREMAAYANACROWDOB:1995 (30 yo F)Acc No.[id number]:06/08/2025 Patient: PARDEEP CAST :1995 A ge:29 Y S ex:Female Address:[place], [address] Subjective: * Chief Complaints: * E MR-Paul [...] TABLET , Notes to Pharmacist: *Reorder from [facility] for eRx and Interaction Alerts*Saxenda 18 MG/3ML Solution Pen-injector Subcutaneous BD PANKAJ 2ND GEN PEN NEEDLE 32 GAUGE X 5/32 , Notes to Pharmacist: *Reorder from [facility] for eRx and Interaction Alerts*Levothyroxine Sodium 25 MCG Tablet Oral Norethindrone 0.35 MG Tablet Oral Taking HYDROcodone-Acetaminophen 5-325 MG Tablet Oral Taking hydroCHLOROthiazide 12.5 MG Tablet Oral Taking metroNIDAZOLE 500 MG Tablet Oral Taking Drospirenone- Ethinyl Estradiol 3-0.03 MG Tablet Oral Taking Ondansetron HCl 4 MG Tablet Oral Taking EUTHYROX 75 MCG TABLET , Notes to Pharmacist: *Reorder from [facility] for eRx and Interaction Alerts*Taking Saxenda 18 MG/3ML Solution Pen-injector Subcutaneous Taking BD PANKAJ 2ND GEN PEN NEEDLE 32 GAUGE X 5/32 , Notes to Pharmacist: *Reorder from [facility] for eRx and Interaction Alerts*Taking Levothyroxine Sodium 25 MCG Tablet Oral Taking Norethindrone 0.35 MG Tablet Oral * * Date:
--- OUTSIDE RECORDS SUMMARY | 2025-07-28 11:15 | XMS_ITS | Encounter Summary ---
Author Organization [facility] Address [address] [place] [address] Care Team Providers Care Truss Maker Name Role Phone Nadia Drummond MD Primary Care Provider [phone] Reason for Visit * Reason Comments Hypothyroidism AcquiredThyroid labs scanned 07/24/2025 Thyroid Problem Solitary Thyroid Nod ule Encounter Details Date Type Department Care Team (Late st Contact Info) Description 07/28/2025 11:15 AM EDT Office Visit [facility] ENDOCRINOLOGY [address] [place] [address] Cheri Harden, [address] [place] [address] Acquired hypothyroidism (Primary Dx); Solitary [...] T4 9.4 Ultrasound report from 05/13/2020 at [facility] showed the left nodule measuring 1.4 [...] concerns. Electronically signed by: Cheri Harden DO Economics Department Chair Please note that portions of this note were completed with a voice recognition program. documented in this encounter Plan of Treatment Upcoming Encounters Date Type Department Care Team (Late st Contact Info) Description 11/03/2025 10:30 AM EST Office Visit [facility] ENDOCRINOLOGY [address] [address] Cheri Harden DO [address] [facility] [address] [place] [address] Scheduled Orders Name Type Priority Associated Diagnoses Orde r Schedule T4 Lab Routine Acquired hypothyroidism Expected: 08/27/2025 (Approximate), Expires: 10/27/2026 TSH Lab Routine Acquired hypothyroidism Expected: 08/27/2025 (Approximate), Expires: 10/27/2026 documented as of this encounter Visit Diagnoses Diagnosis Acquired hypothyroidism- Primary Unspecified hypothyroidism Solitary thyroid nodule documented in this encounter Care Teams Truss Maker Relationship Specialty Start Date End Date Nadia Drummond MD PCP - General Family Medicine 07/15/20 documented as of this encounter
[2025-07-30 14:14] VITALS: BP 123/72; PULSE 84; RESP 20; TEMP 36.8; O2SAT 100; BMI 23.4
[2025-07-30 14:25] VITALS: BP 114/76
--- NOTE | 2025-07-30 14:27 | ECG_ITS ---
APPROVED REPORT Exam: Resting ECG HR:77 bpm ECG Measurements Heart Rate 77 AXES NV 123 P 57 QRSd 85 QRS 32 QT 364 T 30 QTc 396 Conclusion SINUS RHYTHM NORMAL ECG UNCONFIRMED REPORT Normal sinus rhythm. No ST elevation or depression Electronically signed by : FAVIOLA WOODS, 07/30/2025 15:23:14
--- OUTSIDE RECORDS SUMMARY | 2025-07-30 14:28 | XMS_ITS | Encounter Summary ---
Author Organization [facility] Address [address] [place] [address] Care Team Providers Care Quality Technician Name Role Phone Nadia Goodson MD Primary Care Provider Encounter Details Date Type Department Care Team (Late st Contact Info) Description 04/18/2025 Results Follow-Up Obstetrics & Gynecology [address] [place] [address] Tres Ybarra MD [address] [place] [address] Social History Tobacco Use Types Packs/Day Years Used Date Smoking Tobacco: Never Smokeless Tobacco: Never Alcohol Use Standard Drinks/Week Comments No 0 (1 standard drink = 0.6 oz pur e alcohol) PHQ-2 Answer Date Recorded Patient Health Questionnaire-2 Score 0 04/08/2025 [place] Depression Scale Answer Date Recorded [place] Depression Scale Total 0 02/23/2024 The thought [...] EDT Procedure Visit Obstetrics & Gynecology [address] [place] [address] Tres Ybarra MD [address] [place] [address] documented as of this encounter [...] documented as of this encounter Care Teams Quality Technician Relationship Specialty Start Date End Date Nadia Goodson MD [address] [place] [address] PCP - General 01/17/23 documented as of this encounter
--- OUTSIDE RECORDS SUMMARY | 2025-07-30 14:28 | XMS_ITS | Patient Health Record ---
Author Organization [facility] Address [address] [place] [address] Phone [phone] Care Team Providers Care Rubber Engraver Name Role Phone Page Velásquez Unavailable [phone] Migration, Provider Unavailable Unavailable Reason For Referral [...] Active EUTHYROX 75 MCG TABLET *Reorder from [employer] for eRx and Interaction Alerts* Active hydroCHLOROthiazide 12.5 MG Tablet Oral Active BD PANKAJ 2ND GEN PEN NEEDLE 32 GAUGE X / *Reorder from [employer] for eRx and Interaction Alerts* Active Saxenda 18 MG/3ML Solution Pen-injector Subcutaneous Active Social History Social History Additional Details Category Social Info Options Details Migrated Social History Migrated Social History Tobacco Years: Never smoker 07/12/2021 Problems Problem Type SNOMED Code ICD Code Onset Dates Problem Status W/U Status Risk Notes Problem History of suspected exposure to biological agent (38307271516273 ) Encounter for observation for suspected exposure to other biological agents ruled out (Z03.818) Active confirmed Encounters Encounter Location Date Provider Diagnosis [address] [address] 06/07/2025 Provider Migration [address] [address] 06/08/2025 Provider Migration Plan Of Treatment No Information Insurance Providers Payer Name Payer Address Payer Phone Subscriber Number Group Number Insured Name Patient Relationship to Insured Coverage Start Date Coverage End Date [id number] ([place]) [address] [place] [phone] [id number] JANE ALBARADO Spouse - patient is the spouse of the insured
--- OUTSIDE RECORDS SUMMARY | 2025-07-30 14:28 | XMS_ITS | Encounter Summary ---
Author Organization [facility] Address [address] [place] [address] Care Team Providers Care Tabular Typist Name Role Phone Pcp, No Primary Care Provider Nadia Todd MD Primary Care Provider [phone] Pcp, No Primary Care Provider Nadia Todd MD Primary Care Provider [phone] Encounter Details Date Type Department Care Team (Late st Contact Info) Description 10/31/2019 [facility] Encounter Historical OTTR [address] [place] [address] Provider, [address] [address] Social History Tobacco Use Types [...] EDT Procedure Visit Obstetrics & Gynecology [address] [place] [address] Tres Ybarra MD [address] [place] [address] documented as of this encounter Visit Diagnoses Not on filedocumented in this encounter Care Teams Tabular Typist Relationship Specialty Start Date End Date Pcp, No [address] [place] [address] PCP - General 08/07/21 08/08/21 Nadia Goodson MD [address] [place] [address] PCP - General 08/09/21 08/09/21 Pcp, No [address] [place] [address] PCP - General Family Medicine 07/08/22 01/16/23 Nadia Goodson MD [address] [place] [address] PCP - General 01/17/23 documented as of this encounter
--- OUTSIDE RECORDS SUMMARY | 2025-07-30 14:28 | XMS_ITS | Patient Health Record ---
Author Organization [facility] Address [address] [facility] [address] [place] [address] Care Team Providers Care Painter Supervisor Name Role Phone Maggie Tenorio [phone] Allergies Allergen (clinical drug ingredient) Drug/Non Drug [...] Notes Problem Noninflammatory disorder of the vagina (44184057) Bloody vaginal discharge (N89.8) 02/03/20 21 Active [...]
--- OUTSIDE RECORDS SUMMARY | 2025-07-30 14:28 | XMS_ITS | Encounter Summary ---
Author Organization [facility] Address [address] [place] [id number] Care Team Providers Care Breakdown Mill Operator Name Role Phone Nadia Drummond MD Primary Care Provider [phone] Encounter Details Date Type Department Care Team (Late st Contact Info) Description 07/24/2025 Telephone [facility] ENDOCRINOLOGY [address] [place] [address] Cheri Harden DO [address] [place], [place] [id number] Social History Tobacco Use Types Packs/Day Years Used Date Smoking Tobacco: Never Smokeless Tobacco: Never Alcohol Use Standard Drinks/Week Comments Not Currently 0 (1 standard drink = 0.6 oz pur e alcohol) Comments Unknown Sex and Gender Information Value Date Recorded Sex Assigned at Female 07/28/2025 9:49 AM EDT Legal Sex Female 1:49 PM EDT Gender Identity Not on file Sexual Orientation Not on file documented as of this encounter Miscellaneous Notes * Telephone Encounter - Cheri Harden DO - 07/24/2025 4:20 PM EDT TEREZA visit needed with me or RETAIL INVENTORY CONTROL CLERK/PA (this week or next). Please schedule. * Telephone Encounter - Mariam Felix RegSched Rep - 07/24/2025 3:57 PM EDT Patient called office, stated that she is currently . She went to her OB today and had her thyroid checked. Her T4 was 9.4 and TSH was 0.85. She said she has not taken her thyroid medication for 6 months. She was wanting to know Dr. Harden's opinion on these labs. She had labs done at [facility]. Her OB is Dr. Marie. She would like a call back. documented in this encounter Plan of Treatment Upcoming Encounters Date Type Department Care Team (Late st Contact Info) Description 11/03/2025 10:30 AM EST Office Visit [facility] ENDOCRINOLOGY [address] [address] Cheri Harden, DO [address] [address] documented as of this encounter Visit Diagnoses Not on filedocumented in this encounter Care Teams Breakdown Mill Operator Relationship Specialty Start Date End Date Nadia Drummond MD PCP - General Family Medicine 07/15/20 documented as of this encounter
--- OUTSIDE RECORDS SUMMARY | 2025-07-30 14:28 | XMS_ITS | Clinical Summary ---
Author Organization [facility] Address [address] [place] [address] Care Team Providers Care Admissions Specialist Name Role Phone Nadia Drummond MD Primary Care Provider Allergies Active Allergy Reactions Criticality Noted Date [...] mouth Daily. 30 tablet 3 4 Active Progesterone (PROMETRIUM) 200 MG capsule Insert 1 capsule into the vagina Every Night. 5 Active pyridoxine (VITAMIN B-6) 25 MG tablet Take 1 tablet by mouth Daily. 5 Active doxylamine (UNISOM) 25 MG tablet Take 1 tablet by mouth At Night As Needed for Nausea. 5 Active GUMMY VITAMIN Chew 1 each Daily. Active Active Problems Problem Noted Date Diagnosed Date Solitary thyroid nodule 07/28/2025 Assessment & Plan (07/28/2025 11:50 AM EDT): Left mid lobe nodule 1.5 cm on last US in 2021. This is stable from prior ultrasounds. She has undergone FNA in the past x 2, both nondiagnostic in 2013. Exam stable today with no palpable nodule. Can check ultrasound after delivery. Asthma 02/15/2022 Overview (02/15/2022): rescue inhaler Bipolar 1 disorder 02/15/2022 Attention deficit hyperactiv ity disorder (ADHD), combined type 02/15/2022 Back pain 02/15/2022 Fatty liver 02/15/2022 Overview (02/15/2022): bx 2017 HLD (hyperlipidemia) 02/15/2022 HTN (hypertension) 02/15/2022 Hypothyroidism 02/15/2022 Assessment & Plan (07/28/2025 11:45 AM EDT): Previously on 50 mcg daily but ran out of the med 6 months ago. TSH last week at goal for early at 0.95. She does not need to resume levothyroxine at this time. TSH could be lower due to physiologic changes in TBG in early . Monitor with repeat labs in a month. Order printed. Insulin resistance 02/15/2022 Iron deficiency anemia 02/15/2022 [...] I would consider 14 day Holter monitoring. Estimated Date of Delivery Comme nts Yes 03/09/2026 Resolved Problems Problem Noted Date Diagnosed Date [...] take nonsteroidals. I recommended Tylenol if needed. Encounters Date Type Department Care Team Description 07/28/2025 11:15 AM EDT Office Visit [facility] ENDOCR[facility] [address] [place] [address] Cheri Harden DO Acquired hypothyroidism (Primary Dx); Solitary thyroid nodule 07/28/2025 Travel 07/24/2025 Telephone [facility] END[facility] [address] [place] [address] Cheri Harden DO from Last 3 Months Immunizations Immunization Administration Dates Next Due Rho [...] Caitlin Obesity Mother Caitlin Obesity Paternal Grandmother [place] Relation Name Status Comments Brother Alive Father Anam Alive Maternal Grandfather Aren Maternal Grandmother Yvette Mother Caitlin Alive Paternal Grandfather Paternal Grandmother [place] Social History Tobacco Use Types Packs/Day Years [...] Pulse 77 07/28/2025 11:22 AM EDT Temperature 36.9 C (98.5 F) 02/15/2022 10:06 AM EDT Respiratory Rate 18 02/15/2022 10:06 AM EDT Oxygen Saturation 100% 07/28/2025 11:22 AM EDT Inhaled Oxygen Concentration - - Weight 67.4 kg (148 lb 9.6 oz) 07/28/2025 11:22 AM EDT Height 165.1 cm (5' 5 ) 07/28/2025 11:22 AM EDT Body Mass Index 24.73 07/28/2025 11:22 AM EDT Plan of Treatment Upcoming Encounters Date Type Department Care Team (Late st Contact Info) Description 11/03/2025 10:30 AM EST Office Visit [facility] END[facility] [address] [place] [address] Cheri Harden, [address] [place] [address] Health Maintenance Due Date Last Done Comments Annual Gynecologic Pelvic and Breast Exam 1993 Pneumococcal Vaccine 0-49 (1 of 2 - PCV) 2012 PAP SMEAR 2014 ANNUAL PHYSICAL 05/31/2017 LIPID PANEL 02/15/2023 02/15/2022, 04/07/2020 INFLUENZA VACCINE 06/06/2025 07/17/2023, 09/15/2021 TDAP/TD VACCINES (2 - Td or Tdap) 11/03/2033 023 HEPATITIS C SCREENING Completed 05/29/2023, 023 RSV Vaccine - Adults (No Doses Required) Completed Procedures Procedure Name Priority Date/Time Associated Diagnosis Comments SCANNED - LABS 07/24/2025 LIPID PANEL Routine 02/15/2022 12:21 PM EDT [...] Recently Relevant to Health Maintenance Results * LABS SCANNED (07/24/2025) Sara Marie DO LAB BLOOD ORDERABLES Final Result * (ABNORMAL) Lipid Panel (02/15/2022 12:21 PM [...] - 02/16/2022 3:08 PM EDT Performed at: - [facility] [address] [place] [id number] Architectural Sales Consultant: Guillermo Choi PhD, Phone: [phone] Patient Fasting: N Charla Vegas PA-C LAB BLOOD ORDERABLES Final Result [facility] ([facility]) [address] [place] [address], [facility] [address] [place] [address], from Last 3 Months or Most Recently Relevant to Health Maintenance Insurance [facility] [place] [id number] [facility] PPO Care Teams Admissions Specialist Relationship Specialty Start Date End Date Nadia Drummond MD PCP - General Family Medicine 07/15/20
--- OUTSIDE RECORDS SUMMARY | 2025-07-30 14:28 | XMS_ITS | Encounter Summary ---
Author Organization [facility] Address [address] [place] [address] Care Team Providers Care Whipper Beater Name Role Phone Nadia Drummond MD Primary Care Provider [phone] Encounter Details Date Type Department Care Team (Latest Contact Info) Description 07/28/2025 Travel Social History Tobacco Use Types Packs/Day [...] Description 11/03/2025 10:30 AM EST Office Visit [facility] ENDOCR[facility]OLOG[facility] [address] [place] [address] Cheri Harden, [address] [place] [address] documented as of this encounter Visit Diagnoses Not on filedocumented in this encounter Care Teams Whipper Beater Relationship Specialty Start Date End Date Nadia Drummond MD PCP - General Family Medicine 07/15/20 documented as of this encounter
--- OUTSIDE RECORDS SUMMARY | 2025-07-30 14:28 | XMS_ITS | Encounter Summary ---
Author Organization [facility] Address [address] [place] [address] Care Team Providers Care Reject Opener Name Role Phone Nadia Goodson MD Primary Care Provider [phone] Encounter Details Date Type Department Care Team (Late st Contact Info) Description 04/29/2025 Results Follow-Up Obstetrics & Gynecology [address] [place] [address] Tres Ybarra MD [address] [place] [address] Social History Tobacco Use Types Packs/Day Years Used Date Smoking Tobacco: Never Smokeless Tobacco: Never Alcohol Use Standard Drinks/Week Comments No 0 (1 standard drink = 0.6 oz pur e alcohol) PHQ-2 Answer Date Recorded Patient Health Questionnaire-2 Score 0 04/08/2025 [place] Depression Scale Answer Date Recorded [place] Depression Scale Total 0 02/23/2024 The thought [...] EDT Procedure Visit Obstetrics & Gynecology [address] [place] [address] Tres Ybarra MD [address] [place] [address] documented as of this encounter [...] documented as of this encounter Care Teams Reject Opener Relationship Specialty Start Date End Date Nadia Goodson MD [address] [place] [address] PCP - General 01/17/23 documented as of this encounter
--- OUTSIDE RECORDS SUMMARY | 2025-07-30 14:28 | XMS_ITS | Clinical Summary ---
Author Organization [facility] Address [address] [place] [address] Care Team Providers Care Drainman Name Role Phone Nadia Goodson MD Primary Care Provider [phone] Allergies Active Allergy Reactions Criticality Noted Date [...] Support Obstetrics & Gynecology [address] [place] [address] Positive urine test (Primary Dx); Irregular menstruation, unspecified 04/30/2025 Results Follow-Up Obstetrics & Gynecology [address] [place] [address] Tres Ybarra MD 04/30/2025 Travel 04/29/2025 Results Follow-Up Obstetrics & Gynecology [address] [place] [address] Tres Ybarra MD from Last 3 [...] Recorded Patient Health Questionnaire-2 Score 0 04/08/2025 [place] Depression Scale Answer Date Recorded [place] Depression Scale Total 0 02/23/2024 The thought [...] Visit Obstetrics & Gynecology [address] [place] [address] Tres Ybarra MD [address] [place] [address] Health Maintenance Due Date Last Done Comments [facility]-/Child/Adol SDOH Screenings 1993 [facility]- SDOH Screenings 2011 [facility]-Adult SDOH Screenings 2011 [facility]-Hepatitis B Vaccines (1 of 3 - 19+ 3-dose series) 2012 [facility]-Varicella Vaccines (2 of 2 - 13+ 2-dose series) 05/27/2015 04/29/2015 HPV Vaccines (1 - 3-dose SCDM series) 2020 [facility]-[id number]-15 Vaccine (3 - Moderna risk series) 01/06/2021 [...] 10: 10 AM EDT Irregular menstruation, unspecified REFERRED THINPREP [...] 18.2(H) <5 mIU/mL 04/30/2025 1:38 PM EDT [facility] Blood Venous blood specimen / Unknown Venipuncture / Unknown 04/30/2025 10:10 AM EDT 04/30/2025 12:54 PM EDT Narrative [facility] - 04/30/2025 1:38 PM [...] MD LAB BLOOD ORDERABLES Final Resu lt [facility] [address] [place] [address] * Referred ThinPrep Pap and HPV (SO) (02/06/2025 8:23 AM EDT) Pap, Source Cx/Vagina 02/13/2025 12:50 PM EDT [facility] Referred ThinPrep Pap and HPV See Note 02/13/2025 12:50 PM EDT [facility] PAP, THINPREP Normal 02/13/2025 12:50 PM EDT [facility] High Risk HPV Normal 02/13/2025 12:50 PM EDT [facility] Swab Vaginal and cervical cytologic material / Unknown Non-blood Collection / Unknown 02/06/2025 8:23 AM EDT 02/06/2025 12:54 PM EDT Narrative [facility] - 02/13/2025 12:50 PM EDT Authorized individuals can access the [employer] Enhanced Report with an [employer] Connect account using the following link. Your local lab can assist you in obtaining the patient report if you don't have a Connect account. [email or web address] Performed By: [email or web address] [address] [place] [address] Traffic Enumerator: Thompson Correa MD, PhD CLIA Number: [id number] SPECIMEN PART A. Cervical, Endocervical, Vaginal, ThinPrep Pap (Visual Manager) CYTOLOGY HX Date of Last Menstrual Period: N FINAL DIAGNOSIS INTERPRETATION: Negative for Intraepithelial Lesion or Malignancy. SPECIMEN ADEQUACY:Satisfactory for evaluation. Endocervical/transformation zone component present. Electronically Signed Out : [email or web address] Performed by: [facility] [address] [place] [address] [place] [address] Desire Alvarez MD, HR-HPV: Negative Test performed by the FDA-approved Hologic (Gen-Probe) APTIMA HPV test, which detects HPV genotypes: 16, 18, 31, 33, 35, 39, 45, 51, 52, 56, 58, 59, 66, and 68. This assay has been cleared for the specimen types listed below. Other specimen types have not been validated for this assay. -Clinician-collected ThinPrep Pap specimens. Performed by: [facility] [address] [place] [address] [place] [address] Desire Alvarez MD, us Tres Ybarra MD LAB REF LAB BLOOD AND FLUID ORD Final Result [facility] ([facility]) [address] [place] [id number] * HIV 1 & 2 Antibody/Antigen Screen [...] lt Performing Organization Address City/[facility] Co de Phone Number [facility] [address] [place] [address] * Hepatitis C Antibody (05/29/2023 10:20 AM EDT) [facility] Signature Hepatitis C Antibody Negative Negative 05/29/2023 2:02 PM EDT [facility] Blood Venous blood specimen / Unknown Venipuncture / Unknown 05/29/2023 10:20 AM EDT 05/29/2023 1:01 PM EDT Result Mary Yabrra MD LAB BLOOD ORDERABLES Final Resu lt Performing Organization Address City/[facility] Phone Number [facility] [address] [place] [address] from Last 3 Months or Most Recently Relevant to Health Maintenance Insurance [facility] Advance Directives * Full Code (Latest Code Status on File) Date Activated Date Inactivated Comments 08/09/2021 8:28 PM 08/10/2021 1:42 PM Question Answer Comments Patient has decision-making capacity? Yes * Full Code Date Activated Date Inactivated Comments 08/08/2021 3:47 AM 08/09/2021 12:51 AM Question Answer Comments Patient has decision-making capacity? Yes Care Teams Drainman Relationship Specialty Start Date End Date Nadia Goodson MD [facility] [place] [address] PCP - General 01/17/23
--- OUTSIDE RECORDS SUMMARY | 2025-07-30 14:28 | XMS_ITS | Encounter Summary ---
Author Organization [facility] Address [address] [id number] Care Team Providers Care Vocational Rehab Consultant Name Role Phone Pcp, No Primary Care Provider Nadia Todd MD Primary Care Provider [phone] Pcp, No Primary Care Provider Nadia Todd MD Primary Care Provider [phone] Encounter Details Date Type Department Care Team (Late Contact Info) Description 11/05/2019 [facility] Historical [facility] [address] [place] [address] aMrla Sin, RN [facility] [address] [place] [address] Social History Tobacco Use Types Packs/Day Years [...] EDT Procedure Visit Obstetrics & Gynecology [address] [place] [address] Tres Ybarra MD [address] [place] [address] documented as of this encounter Visit Diagnoses Not on filedocumented in this encounter Care Teams Vocational Rehab Consultant Relationship Specialty Start Date End Date Pcp, No [address] [place] [address] PCP - General 08/07/21 08/08/21 Nadia Goodson MD [address] [place], [place] [id number] PCP - General 08/09/21 08/09/21 Pcp, No [address] [place] [address] PCP - General Family Medicine 07/08/22 01/16/23 aNdia Goodson MD [address] [place] [address] PCP - General 01/17/23 documented as of this encounter
--- OUTSIDE RECORDS SUMMARY | 2025-07-30 14:28 | XMS_ITS | Encounter Summary ---
Author Organization [facility] Address [address] [place] [address] Care Team Providers Care Paranormal Investigator Name Role Phone Nadia Goodson MD Primary Care Provider [phone] Encounter Details Date Type Department Care Team (Late st Contact Info) Description 04/30/2025 Results Follow-Up Obstetrics & Gynecology [address] [place] [address] Tres Ybarra MD [address] [place] [address] Social History Tobacco Use Types Packs/Day Years Used Date Smoking Tobacco: Never Smokeless Tobacco: Never Alcohol Use Standard Drinks/Week Comments No 0 (1 standard drink = 0.6 oz pur e alcohol) PHQ-2 Answer Date Recorded Patient Health Questionnaire-2 Score 0 04/08/2025 [place] Depression Scale Answer Date Recorded [place] Depression Scale Total 0 02/23/2024 The thought [...] EDT Procedure Visit Obstetrics & Gynecology [address] [place] [address] Tres Ybarra MD [address] [place] [address] documented as of this encounter [...] documented as of this encounter Care Teams Paranormal Investigator Relationship Specialty Start Date End Date Nadia Goodson MD [address] [place] [address] PCP - General 01/17/23 documented as of this encounter
--- NOTE | 2025-07-30 14:41 | ED_ITS ---
<Statement entered by Erinn Romero DO - 07/31/25 16:30> I was consulted by the LAKEISHA, and we discussed the complexity of problems being addressed. I approve the treatment and management plan for this patient's care in the emergency department, thus performing a substantial portion of the medical decision making. Erinn Romero DO <Statement entered by Jordan Tinajero MD - 07/31/25 12:42> I was consulted by the LAKEISHA, and we discussed the complexity of the problems being addressed. I approve the treatment and management plan for this patient's care in the emergency department, thus performing a substantive portion of the medical decision making. Jordan Tinajero MD Discharge Plan Disposition Patient Disposition: Home, Self-Care Condition: Good Prescriptions Prescriptions: New cephalexin 500 mg capsule 500 mg PO BID 7 Days Qty: 14 0RF No Action ondansetron 4 mg tablet,disintegrating PO DAILY PRN Patient Comments: DISSOLVE 1 TABLET IN MOUTH TWICE DAILY NEEDED FOR 7 DAYS FOR NAUSEA progesterone micronized 200 mg capsule 200 mg PO HS promethazine 25 mg suppository 25 mg VA Q6H PRN (Reason: nausea and vomiting) Qty: 12 2RF omeprazole 20 mg capsule,delayed release(DR/EC) 20 mg PO DAILY famotidine 20 mg tablet 20 mg PO Patient Comments: TAKE 1 TABLET BY MOUTH ONCE DAILY AT BEDTIME hydroxyzine pamoate [Vistaril] 25 mg capsule 25 mg PO HS Qty: 30 0RF Unisom (doxylamine) 25 mg tablet 12.5 mg PO HS PRN (Reason: sleep) Qty: 30 0RF pyridoxine (vitamin B6) 25 mg tablet 25 mg PO DAILY Qty: 30 0RF Referrals Follow up/Referrals: Sara Marie DO [Staff Physician, [facility]] - See instructions Nadia Drummond MD [Primary Care Provider, Family Practice] - See instructions Activity Restrictions/Add. Instructions Additional Instructions/Restrictions: Increase fluids and rest. Take meds as directed by your OB. If any other problems or concerns please return to the ED. Clinical Impressions Clinical Impression: Hyperemesis gravidarum Instructions Patient Instructions: Hyperemesis Gravidarum Print Language Print Language: Italian Discharge ED Provider: Jordan Tinajero General Adult [facility] General Chief complaint: Nausea/Vomiting/Diarrhea Stated complaint: 8 weeks AP/per Frank/Can't keep anything down Time Seen by Provider: 07/30/25 14:29 Mode of Arrival: Ambulatory Source of Information: Patient Description of Symptoms (Recalled from ER Triage Doc. by RN): patient presents to the ED for vomiting and not being able to keep anything down since Monday. Patient is 8 weeks, 3 days . Patient also stated she fainted this morning. Patient stated she got really lightheaded/dizzy prior to fainting. History of Present Illness HPI narrative: 30-year-old female presents to the ED today for complaint of nausea and vomiting since Monday. She has been unable to tolerate p.o. since Monday. She is 8 weeks and 3 days . She got really lightheaded and fainted this morning as well. Dr. Marie told her to come to the emergency room for fluids. She has a history of hyperemesis. She has no pain or bleeding. Related Data Home Medications ?Medication ?Instructions ?Recorded ?Confirmed omeprazole 20 mg capsule,delayed 20 mg PO DAILY 07/24/25 release famotidine 20 mg tablet 20 mg PO 03/25/25 07/24/25 ondansetron 4 mg disintegrating mg PO DAILY PRN 07/24/25 tablet progesterone micronized 200 mg 200 mg PO HS 07/24/25 0 07/24/25 capsule Previous Rx's ?Medication ?Instructions ?Recorded doxylamine succinate 25 mg tablet 12.5 mg (1/2 x 25 mg ) PO HS PRN 07/10/25 (Unisom (doxylamine)) sleep #30 tabs hydroxyzine pamoate 25 mg capsule 25 mg PO HS #30 caps 07/10/25 (Vistaril) pyridoxine (vitamin B6) 25 mg 25 mg PO DAILY #30 tabs 07/10/25 tablet promethazine 25 mg rectal 25 mg VA Q6H PRN nausea and 07/24/25 suppository vomiting #12 ea cephalexin 500 mg capsule 500 mg PO BID 7 days #14 cap s 07/30/25 Allergies Allergy/AdvReac Type Severity Reaction Status Date / Time adhesive Allergy Intermediate Rash Verified 07/24/25 13:04 amoxicillin Allergy Nausea Verified 07/24/25 13:04 hydrocodone Allergy Rash Verified 07/24/25 13:04 [facility] Disclaimer: The information contained in this section may have been updated after the patient was seen, as this information can be updated by other users. Medical History (Updated 07/30/25 @ 17:06 by Lucia Sanders (ED), HASH SLINGER) Heavy menstrual bleeding Acute dyspnea Gastroenteritis Foot sprain Ankle sprain Right knee meniscal tear Syncope, vasovagal SAB (spontaneous ) Chemical Amenorrhea Positive blood test DUB (dysfunctional uterine bleeding) Pyelonephritis PCOS (polycystic ovarian syndrome) Surgical History H/O gastric sleeve History of carpal tunnel release H/O knee surgery History of cholecystectomy History of tonsillectomy Family History Mother AMARO (nonalcoholic steatohepatitis) Other Cancer Diabetes Hypertension Social History Smoking Status: Never smoker alcohol intake: never substance use type: denies use current occupational status: employed Travel in the last 8 weeks?: None household members: spouse and children Have you lived/traveled outside US in past 30 days?: No Contact w/someone who lives/traveled outside US past 30 days?: No Exposure to someone with infectious disease in past 14 days?: No Do you have a fever (greater than 100.4 F or 38 C)?: No Have you tested positive for COVID-19?: No Exposed to someone with COVID-19 in past 14 days?: No Do you have a sore throat?: No Do you have a cough?: No Do you have any weakness?: No Do you have any diarrhea?: No Are you experiencing any unusual bleeding?: No Do you have any muscle aches/pain?: No Do you have any abdominal pain?: No Are you experiencing loss of taste or smell?: No Other Medical History Have you received the Flu Vaccine for this season: No Have you received the Pneumonia Vaccine: No ROS Obtained: Yes Systems reviewed as appropriate & no additional complaints except as documented Constitutional Constitutional: Reports as per HPI Physical Exam General General appearance: alert Head Head exam: normocephalic Eye Eye exam: Present PERRL and EOMI ENT ENT exam: Present normal oropharynx and mucous membranes moist Neck Neck exam: Present full ROM and trachea midline Respiratory Respiratory exam: Present normal lung sounds bilaterally Cardiovascular Cardiovascular exam: Present regular rate, normal rhythm, normal heart sounds, +S1 and +S2 Abdominal Exam Abdominal exam: Present soft and normal bowel sounds Extremities Exam Extremities exam: Present normal inspection, full ROM and normal capillary refill Neurological Exam Neurological exam: Present alert and oriented X3 Skin Skin exam: Present warm, dry and intact Medical Decision Making Medical Records Screening: Per USPSTF and CDC recommendations, given the prevalence of disease in our region, it is our hospital?s policy to screen for HIV and viral Hepatitis for all patients aged 18 and over and those with ongoing risk factors. Trevor Inquiry Pt receiving controlled substance: No Trevor was queried for this patient: No Vital Signs: 07/30/25 14:14 07/30/25 14:25 07/30/25 15:15 Temperature 98.2 F Temperature Source Oral Pulse Rate 67 Pulse Rate [Right Radial] 84 Respiratory Rate 20 Blood Pressure 114/76 114/76 Blood Pressure [Right Arm] 123/72 Blood Pressure Mean 88 Blood Pressure Mean [Right Arm] 89 Blood Pressure Source Blood Pressure Source [Right Arm] Automatic Cuff Blood Pressure Position Blood Pressure Position [Right Arm] Sitting 02 Sat by Pulse Oximetry 100 100 Oxygen Delivery Method Room Air 07/30/25 16:00 07/30/25 17:13 Temperature 98 F Temperature Source Oral Pulse Rate 60 79 Pulse Rate [Right Radial] Respiratory Rate 15 16 Blood Pressure 105/52 L 109/53 L Blood Pressure [Right Arm] Blood Pressure Mean Blood Pressure Mean [Right Arm] Blood Pressure Source Automatic Cuff Blood Pressure Source [Right Arm] Blood Pressure Position Supine Blood Pressure Position [Right Arm] 02 Sat by Pulse Oximetry 100 Oxygen Delivery Method Room Air Room Air Lab Data Lab Results 07/30/25 14:22: WBC 9.9, RBC 4.60, Hgb 9.8 L, Hct 32.7 L, MCV 71.1 L, MCH 21.3 L , MCHC 30.0 L, RDW 14.0, Plt Count 258, MPV 9.6, Neut % (Auto) 77.9, Lymph % (Auto) 16.6, [place] % (Auto) 4.9, Eos % (Auto) 0.3, Baso % (Auto) 0.2, Neut # (Auto) 7.7, Lymph # (Auto) 1.6, [place] # (Auto) 0.5, Eos # (Auto) 0.0, Baso # (Auto) 0.0, Sodium 133 L, Potassium 3.8, Chloride 100, Carbon Dioxide 23, Anion Gap 13.8, BUN 7, Creatinine 0.60, Estimated Creat Clear 136, Estimated GFR 116, Est GFR ( Amer) 140, Glucose 91, Calcium 9.4, Magnesium 1.6, Total Bilirubin 0.9, AST 23, ALT 17, Alkaline Phosphatase 69, Total Protein 8.1, Albumin 4.8, Globulin 3.3 H, Albumin/Globulin Ratio 1.5, Lipase 77, Serum HCG, Qual Positive 07/30/25 16:05: Urine Color Yellow, Urine Appearance Clear, Urine pH 6.0, Ur Specific [place] 1.025, Urine Protein Negative, Urine Glucose (UA) Negative, Urine Ketones Trace, Urine Blood Negative, Urine Nitrate Negative, Urine Bilirubin Negative, Urine Urobilinogen 0.2, Ur Leukocyte Esterase Trace, Urine RBC None, Urine WBC 5-10, Ur Squamous Epith Cells 3-5, Urine Bacteria 2+, Urine Mucus 1+ 07/30/25 14:22 07/30/25 14:22 Orders (Tests/Meds): ED MEDICATIONS Discontinued Medications Generic Name Dose Route Start Last Admin Trade Name Freq PRN Reason Stop Dose Admin Diphenhydramine HCl 50 mg 07/30/25 14:37 07/30/25 14:54 Diphenhydramine 50mg/Ml Vial IV 07/30/25 14:38 50 mg ONCE ONE Administration Sodium Chloride 1,000 mls @ 999 mls/hr 07/30/25 14:37 07/30/25 16:06 Sod Chlor 0.9% 1000ml Bag IV 07/30/25 15:37 Infused .Q1H1M ONE Infusion Sodium Chloride 1,000 mls @ 999 mls/hr 07/30/25 16:23 07/30/25 16:27 Sod Chlor 0.9% 1000ml Bag IV 07/30/25 17:23 999 mls/hr .Q1H1M ONE Administration Ondansetron HCl 4 mg 07/30/25 14:37 07/30/25 14:54 Ondansetron 4mg/2ml Vial IV 07/30/25 14:38 4 mg ONCE ONE Administration ORDERS Category Date Time Status Complete Blood Count Auto Diff Stat Lab 07/30/25 14:22 Completed Comprehensive Metabolic Panel Stat Lab 07/30/25 14:22 Completed HCG Qualitative, Serum Stat Lab 07/30/25 14:22 Completed Lipase Stat Lab 07/30/25 14:22 Completed Magnesium Stat Lab 07/30/25 14:22 Completed Urinalysis and Microscopic Stat Lab 07/30/25 16:05 Completed Urine Culture Stat Micro 07/30/25 16:05 Received Medical Decision Narrative: patient is a 30-year-old presenting to the emergency department for evaluation of nausea and vomiting. Patient is hemodynamically stable and nontoxic- appearing upon arrival, afebrile. Differential diagnosis includes hyperemesis gravidarum or viral illness. Workup will be conducted with hematologic labs, specific imaging. Initial inventions include crystalloid bolus, meds for nausea. Patient feels much improved after nausea and IV fluids. I discussed patient with Dr. Romero and Dr. Tinajero. Patient is safe for discharge home. Critical Care Critical Care Time Critical Care Time: No
[2025-07-30 14:47] LABS: Hematocrit 32.7 % (37.0-47.0); Hemoglobin 9.8 g/dL (12.2-16.2); Immature Granulocytes % 0.1 %; Mean Corpuscular HGB Conc 30.0 g/dL (31.8-35.4); Mean Corpuscular Hemoglobin 21.3 pg (27.0-31.2); Mean Corpuscular Volume 71.1 fl (81-99); Nucleated Red Blood Cells % 0 %; Platelet Count 258 K/mm3 (142-424); Red Blood Count 4.60 M/mm3 (4.20-5.40); Red Cell Distribution Width-SD 35.4 fL; White Blood Count 9.9 K/mm3 (4.8-10.8)
[2025-07-30] MEDS: 0.9 % SODIUM CHLORIDE 1000ML 1,000 ML 999 ML IV ×2 (14:54→16:27)
[2025-07-30] MEDS: ONDANSETRON 4MG/2ML VIAL 4 MG IV (14:54)
[2025-07-30 15:00] LABS: Alanine Aminotransferase 17 U/L (12-78); Albumin Level 4.8 g/dl (3.5-5.0); Albumin/Globulin Ratio 1.5 (1.1-1.8); Alkaline Phosphatase 69 U/L (38-126); Anion Gap 13.8 mEq/L (5-15); Aspartate Amino Transferase 23 U/L (14-36); Bilirubin,Total 0.9 mg/dl (0.2-1.3); Blood Urea Nitrogen 7 mg/dl (7-17); Calcium 9.4 mg/dl (8.4-10.2); Carbon Dioxide 23 mmol/L (22.0-30.0); Chloride 100 mmol/L (98-107); Creatinine Clearance Estimated 136 mL/min (50-200); Creatinine,Serum 0.60 mg/dl (0.52-1.04); Estimated Glomerular Filt Rate 116 ml/min (>60); GFR (African American) 140 ML/MIN (>60); Globulin 3.3 g/dL (1.3-3.2); Glucose 91 mg/dl (74-100); Lipase 77 U/L (23-300); Magnesium 1.6 mg/dl (1.6-2.3); Potassium 3.8 mmoL/L (3.5-5.1); Sodium 133 mmol/L (136-145); Total Protein,Serum 8.1 g/dl (6.3-8.2)
[2025-07-30 15:08] LABS: HCG Qualitative, Serum Positive (Negative)
[2025-07-30 15:15] VITALS: BP 114/76; PULSE 67; O2SAT 100
[2025-07-30 16:00] VITALS: BP 105/52; PULSE 60; RESP 15; O2SAT 100
--- NOTE | 2025-07-30 16:06 | PC.NURSE ---
PT ASSISTED TO BR
[2025-07-30 16:15] LABS: Microscopic, Urine URINE MICROSCOPIC (MICROSCOPIC)
[2025-07-30 16:25] LABS: Bilirubin,Urine Negative (Negative); Color,Urine YELLOW (Yellow); Glucose,Urine (UA) Negative (Negative); Ketones,Urine TRACE (Negative); Leukocyte Esterase,Urine TRACE (Negative); PH,Urine 6.0 (5.0-8.5); Protein,Urine Negative (Negative); Specific Gravity, Urine 1.025 (1.005-1.030); Urobilinogen,Urine 0.2 EU/dl (0.2)
[2025-07-30 17:07] LABS: Bacteria,Urine 2+ /lpf; Mucus,Urine 1+ /lpf
[2025-07-30 17:13] VITALS: BP 109/53; PULSE 79; RESP 16; TEMP 36.6; O2SAT 98
== END 2025-07-30 17:31 | disposition home or self-care (01) ==
PROVIDERS: Nurse Practitioner; Emergency Provider Student in an Organized Health Care Education/Training Program; PCP Family Medicine
DX: O21.0 Mild hyperemesis gravidarum (principal); E87.1 Hypo-osmolality and hyponatremia; R42 Dizziness and giddiness; Z3A.08 8 weeks gestation of pregnancy
CPT/HCPCS: 80053; 81001; 83690; 83735; 84703; 85025; 87086; 93005; 96361; 96374; 96375; 99284; 99285; J1200; J2405; J7030

== ENCOUNTER 2025-09-09 17:45 | Emergency (ER) | payer BC, SELFPAY ==
--- OUTSIDE RECORDS SUMMARY | 2021-05-03 11:23 | XMS_ITS | Encounter Summary ---
[facility] [address] [place] [address] Care Team Providers Care Outboard Motorboat Operator Name Role Phone Nadia Drummond MD Primary Care Provider Reason for Visit * Diagnostic Imaging (Routine) - Closed Specialty Diagnoses / Procedures Referred By Contac t Referred To Contact Radiology Diagnoses Hypothyroidism, unspecified type Procedures US Thyroid Cheri Harden DO [address] [place] [address] Phone: tel: fax: [facility] [address] [place] [address] Phone: tel: fax: Referral ID Status Reason Start Date Expiration Date Visits Re quested Visits Authorized [id number] Closed 05/03/2021 05/03/2022 1 1 Encounter Details Date Type Department Care Team (Late st Contact Info) Description 05/03/2021 12:23 PM EDT Hospital Encounter [facility] [address] [place] [address] Social History Tobacco Use Types [...] Description 11/03/2025 10:30 AM EST Office Visit [facility] [address] [facility] [address] [place] [address] Cheri Harden, [address] [facility] [address] [place] [address] documented as of this encounter Procedures Procedure [...] documented as of this encounter Care Teams Outboard Motorboat Operator Relationship Specialty Start Date End Date Nadia Drummond MD PCP - General Family Medicine 07/15/20 documented as of this encounter
--- OUTSIDE RECORDS SUMMARY | 2022-10-13 09:42 | XMS_ITS | Encounter Summary ---
[facility] Address [address] [place] [address] Care Team Providers Care Textile Dyer Name Role Phone Nadia Drummond MD Primary Care Provider [phone] Reason for Visit * Diagnostic Imaging (Routine) - Closed Specialty Diagnoses / Procedures Referred By Idalia caruso Referred To Contact Radiology Diagnoses Solitary thyroid nodule Procedures US Thyroid Cheri Harden DO 3084 [facility]ACHCl[facility]AdWE[facility]SP[facility] J[facility] [address] [place] [address] Phone: tel: fax: Referral ID Status Reason Start Date Expiration Date Visits Re quested Visits Authorized [id number] Closed 10/13/2022 10/13/2023 1 1 Encounter Details Date Type Department Care Team (Late st Contact Info) Description 10/13/2022 9:42 AM EST Hospital Encounter [facility]CRINOLOGY 3084 [facility] [address] [place] [phone] Social History Tobacco Use Types Packs/Day [...] Description 11/03/2025 10:30 AM EST Office Visit [facility] ENDOCRINOLOGY 3084 [facility] [address] [place] [address] Cheri Harden, DO [address] [address] documented as of this encounter Procedures Procedure [...] documented as of this encounter Care Teams Textile Dyer Relationship Specialty Start Date End Date Nadia Drummond MD PCP - General Family Medicine 07/15/20 documented as of this encounter
--- OUTSIDE RECORDS SUMMARY | 2025-06-07 04:00 | XMS_ITS ---
Author Organization [facility] Address [address] [place] [address] Phone [phone] Care Team Providers Care Chief Chemist Name Role Phone Page Velásquez Unavailable [phone] Migration, Provider Unavailable Unavailable REASON FOR VISIT EMR-Paul Encounters Encounter Location Date Provider Diagnosis [facility] [address] [place] [address] 06/07/2025 Provider Migration Plan Of Treatment No Information Progress Notes * PARDEEP FENGDOB:1995 (30 yo F)Acc No.[id number]:06/07/2025 Patient: PARDEEP CAST :1995 A ge:29 Y S ex:Female Address:[address] [facility] [address] Subjective: * Chief Complaints: * E MR-Paul * * Date:
--- OUTSIDE RECORDS SUMMARY | 2025-06-08 04:00 | XMS_ITS ---
Author Organization [facility] Address [address] [place] [address] Phone [phone] Care Team Providers Care Processing Talc And Borate Supervisor Name Role Phone Page Velásquez Unavailable [phone] Migration, Provider Unavailable Unavailable REASON FOR VISIT EMR-Paul Medications Medication SIG (Take, Route, Frequency, Duration) Notes Start Date End Date Status Ondansetron HCl 4 MG Tablet Oral Active Drospirenone-Ethinyl Estradiol 3-0.03 MG Tablet Oral Active Norethindrone 0.35 MG Tablet Oral Active EUTHYROX 75 MCG TABLET *Reorder from [facility] for eRx and Interaction Alerts* Active Saxenda 18 MG/3ML Solution Pen-injector Subcutaneous Active HYDROcodone-Acetaminophen 5-325 MG Tablet Oral Active metroNIDAZOLE 500 MG Tablet Oral Active Levothyroxine Sodium 25 MCG Tablet Oral Active hydroCHLOROthiazide 12.5 MG Tablet Oral Active BD PANKAJ 2ND GEN PEN NEEDLE 32 GAUGE X 32 *Reorder from [employer] for eRx and Interaction Alerts* Active Social History Social History Additional Details Category Social Info Options Details Migrated Social History Migrated Social History Tobacco Years: Never smoker 07/12/2021 Encounters Encounter Location Date Provider Diagnosis [facility] [address] [place] [address] 06/08/2025 Provider Migration Plan Of Treatment No Information Progress Notes * JUNG PREMAAYANACROWDOB:1995 (30 yo F)Acc No.[id number]:06/08/2025 Patient: PARDEEP CAST :1995 A ge:29 Y S ex:Female Address:[address] [place], [address] Subjective: * Chief Complaints: * E MR-Paul * Social History: M igrated Social History: M igrated Social History: Tobacco Years: Never smoker 07/12/2021. * Medications: T akingHYDROcodone-Acetaminophen 5-325 MG Tablet Oral hydroCHLOROthiazide 12.5 MG Tablet Oral metroNIDAZOLE 500 MG Tablet Oral Drospirenone-Ethinyl Estradiol 3- 0.03 MG Tablet Oral Ondansetron HCl 4 MG Tablet Oral EUTHYROX 75 MCG TABLET , Notes to Pharmacist: *Reorder from [facility] for eRx and Interaction Alerts*Saxenda 18 MG/3ML Solution Pen-injector Subcutaneous BD PANKAJ 2ND GEN PEN NEEDLE 32 GAUGE X 5/32 , Notes to Pharmacist: *Reorder from [facility] for eRx and Interaction Alerts*Levothyroxine Sodium 25 MCG Tablet Oral Norethindrone 0.35 MG Tablet Oral Taking HYDROcodone-Acetaminophen 5-325 MG Tablet Oral Taking hydroCHLOROthiazide 12.5 MG Tablet Oral Taking metroNIDAZOLE 500 MG Tablet Oral Taking Drospirenone- Ethinyl Estradiol 3-0.03 MG Tablet Oral Taking Ondansetron HCl 4 MG Tablet Oral Taking EUTHYROX 75 MCG TABLET , Notes to Pharmacist: *Reorder from [facility] for eRx and Interaction Alerts*Taking Saxenda 18 MG/3ML Solution Pen-injector Subcutaneous Taking BD PANKAJ 2ND GEN PEN NEEDLE 32 GAUGE X 5/32 , Notes to Pharmacist: *Reorder from [facility] for eRx and Interaction Alerts*Taking Levothyroxine Sodium 25 MCG Tablet Oral Taking Norethindrone 0.35 MG Tablet Oral * * Date:
--- OUTSIDE RECORDS SUMMARY | 2025-07-28 10:15 | XMS_ITS | Encounter Summary ---
Author Organization [facility] Address [address] [place] [address] Care Team Providers Care Filter Tip Inspector Name Role Phone Nadia Drummond MD Primary Care Provider [phone] Reason for Visit * Reason Comments Hypothyroidism AcquiredThyroid labs scanned 07/24/2025 Thyroid Problem Solitary Thyroid Nod ule Encounter Details Date Type Department Care Team (Late st Contact Info) Description 07/28/2025 11:15 AM EDT Office Visit [facility] ENDOCRINOLOGY [address] [place] [address] Cheri Harden, [address] [place] [address] Acquired hypothyroidism (Primary Dx); Solitary [...] T4 9.4 Ultrasound report from 05/13/2020 at [facility] showed the left nodule measuring 1.4 [...] concerns. Electronically signed by: Cheri Harden DO Certified Personal Trainer Please note that portions of this note were completed with a voice recognition program. documented in this encounter Plan of Treatment Upcoming Encounters Date Type Department Care Team (Late st Contact Info) Description 11/03/2025 10:30 AM EST Office Visit [facility] ENDOCRINOLOGY [address] [address] Cheri Harden DO [address] [facility] [address] [place] [address] Scheduled Orders Name Type Priority Associated Diagnoses Orde r Schedule T4 Lab Routine Acquired hypothyroidism Expected: 08/27/2025 (Approximate), Expires: 10/27/2026 TSH Lab Routine Acquired hypothyroidism Expected: 08/27/2025 (Approximate), Expires: 10/27/2026 documented as of this encounter Visit Diagnoses Diagnosis Acquired hypothyroidism- Primary Unspecified hypothyroidism Solitary thyroid nodule documented in this encounter Care Teams Filter Tip Inspector Relationship Specialty Start Date End Date Nadia Drummond MD PCP - General Family Medicine 07/15/20 documented as of this encounter
--- NOTE | 2025-09-09 18:14 | HMH.EDGENADL ---
Discharge Plan Disposition Patient Disposition: Home, Self-Care Condition: Good Prescriptions Prescriptions: No Action ondansetron 4 mg tablet,disintegrating PO DAILY PRN Patient Comments: DISSOLVE 1 TABLET IN MOUTH TWICE DAILY NEEDED FOR 7 DAYS FOR NAUSEA promethazine 25 mg suppository 25 mg PA Q6H PRN (Reason: nausea and vomiting) Qty: 12 2RF omeprazole 20 mg capsule,delayed release(DR/EC) 20 mg PO DAILY famotidine 20 mg tablet 20 mg PO Patient Comments: TAKE 1 TABLET BY MOUTH ONCE DAILY AT BEDTIME hydroxyzine pamoate [Vistaril] 25 mg capsule 25 mg PO HS Qty: 30 0RF Unisom (doxylamine) 25 mg tablet 12.5 mg PO HS PRN (Reason: sleep) Qty: 30 0RF pyridoxine (vitamin B6) 25 mg tablet 25 mg PO DAILY Qty: 30 0RF Referrals Follow up/Referrals: Nadia Drummond MD [Primary Care Provider, Family Practice] - See instructions Activity Restrictions/Add. Instructions Additional Instructions/Restrictions: Follow-up with OB or return to the ER for any acute or worsening symptoms such as fevers, worsening flank pain, inability to tolerate oral intake. Clinical Impressions Clinical Impression: Acute flank pain Instructions Patient Instructions: DI for Urinary Tract Infection (UTI), DI for Urinary Tract Infection in Children Print Language Print Language: Amharic Discharge ED Provider: Erinn Romero Adult HPI General Chief complaint: Urogenital-Female Stated complaint: Poss kidney inf, pain both sides lw back Time Seen by Provider: 09/09/25 18:14 History of Present Illness HPI narrative: Patient is a 30-year-old female who is currently 14 weeks and 1 day who presents to the emergency department with bilateral left greater than right flank pain. Does report some dysuria but denies any other abdominal pain. Patient denies any vaginal bleeding vaginal discharge. Patient states that she follows with Dr. Marie here with OB. Patient has had hyperemesis and is requiring a constant Zofran pump. Patient denies any headaches upper respiratory symptoms or other associated symptoms. Patient states that she has had kidney infections in the past. Patient is not on any antibiotics. Patient denies any other daily medications. Related Data Home Medications ?Medication ?Instructions ?Recorded ?Confirmed omeprazole 20 mg capsule,delayed 20 mg PO DAILY 06/26/24 09/10/25 release famotidine 20 mg tablet 20 mg PO 03/25/25 09/10/25 ondansetron 4 mg disintegrating mg PO DAILY PRN 07/10/25 09/10/25 tablet Previous Rx's ?Medication ?Instructions ?Recorded doxylamine succinate 25 mg tablet 12.5 mg (1/2 x 25 mg) PO HS PRN 07/10/25 (Unisom (doxylamine)) sleep #30 tabs hydroxyzine pamoate 25 mg capsule 25 mg PO HS #30 caps 07/10/25 (Vistaril) pyridoxine (vitamin B6) 25 mg 25 mg PO DAILY #30 tabs 07/10/25 tablet promethazine 25 mg rectal 25 mg PA Q6H PRN nausea and 07/24/25 suppository vomiting #12 ea Allergies Allergy/AdvReac Type Severity Reaction Status Date / Time adhesive Allergy Intermediate Rash Verified 09/10/25 11:19 amoxicillin Allergy Nausea Verified 09/10/25 11:19 hydrocodone Allergy Rash Verified 09/10/25 11:19 PFSH PFSH Disclaimer: The information contained in this section may have been updated after the patient was seen, as this information can be updated by other users. Medical History Heavy menstrual bleeding Acute dyspnea Gastroenteritis Foot sprain Ankle sprain Right knee meniscal tear Syncope, vasovagal SAB (spontaneous ) Chemical Amenorrhea Positive blood test DUB (dysfunctional uterine bleeding) Pyelonephritis PCOS (polycystic ovarian syndrome) Surgical History H/O gastric sleeve History of carpal tunnel release H/O knee surgery History of cholecystectomy History of tonsillectomy Family History Mother AMARO (nonalcoholic steatohepatitis) Other Cancer Diabetes Hypertension Social History Smoking Status: Never smoker alcohol intake: never substance use type: denies use current occupational status: employed Travel in the last 8 weeks?: None household members: spouse and children Have you lived/traveled outside US in past 30 days?: No Contact w/someone who lives/traveled outside US past 30 days?: No Exposure to someone with infectious disease in past 14 days?: No Do you have a fever (greater than 100.4 F or 38 C)?: No Have you tested positive for COVID-19?: No Exposed to someone with COVID-19 in past 14 days?: No Do you have a sore throat?: No Do you have a cough?: No Do you have any weakness?: No Do you have any diarrhea?: No Are you experiencing any unusual bleeding?: No Do you have any muscle aches/pain?: No Do you have any abdominal pain?: No Are you experiencing loss of taste or smell?: No Other Medical History Have you received the Flu Vaccine for this season: No Have you received the Pneumonia Vaccine: No ROS Obtained: Yes All systems reviewed & no additional complaints except as documented and Yes Systems reviewed as appropriate & no additional complaints except as documented Physical Exam General General appearance: alert and in no apparent distress Head Head exam: atraumatic, normocephalic and normal inspection Eye Eye exam: Present normal appearance, PERRL and EOMI; Absent scleral icterus ENT ENT exam: Present normal exam and normal external ear exam Neck Neck exam: Present normal inspection and full ROM Chest Chest inspection: Present normal inspection and symmetric chest wall rise Respiratory Respiratory exam: Present normal lung sounds bilaterally; Absent respiratory distress or wheezes Cardiovascular Cardiovascular exam: Present regular rate, normal rhythm and normal heart sounds Abdominal Exam Abdominal exam: Present soft, distention and other (No CVA tenderness); Absent tenderness, guarding or rebound Extremities Exam Extremities exam: Present normal inspection and full ROM Back Exam Back exam: Present normal inspection and full ROM Neurological Exam Neurological exam: Present alert and oriented X3 Psychiatric Psychiatric exam: Present normal affect and normal mood Skin Skin exam: Present warm and dry Medical Decision Making Medical Records Medical records reviewed: Yes I reviewed the patient's medical records. Screening: Per USPSTF and CDC recommendations, given the prevalence of disease in our region, it is our hospital?s policy to screen for HIV and viral Hepatitis for all patients aged 18 and over and those with ongoing risk factors. Trevor Inquiry Pt receiving controlled substance: No Vital Signs: 09/09/25 18:16 09/09/25 19:00 09/09/25 20:17 Temperature 98.4 F 98.4 F Temperature Source Oral Oral Pulse Rate 85 80 Pulse Rate [Right Brachial] 106 H Respiratory Rate 16 16 Blood Pressure 118/74 120/76 Blood Pressure [Right Arm] 133/79 Blood Pressure Mean [Right Arm] 97 Blood Pressure Source [Right Arm] Automatic Cuff Blood Pressure Position Sitting Blood Pressure Position [Right Arm] Sitting 02 Sat by Pulse Oximetry 100 100 Oxygen Delivery Method Room Air Room Air Lab Data Lab results reviewed: Yes I reviewed the patient's lab results. Lab Results 09/09/25 18:23: Urine Color Yellow, Urine Appearance Sl cloudy, Urine pH 7.0, Ur Specific [place] 1.020, Urine Protein Negative, Urine Glucose (UA) Negative, Urine Ketones 1+, Urine Blood Negative, Urine Nitrate Negative, Urine Bilirubin Negative, Urine Urobilinogen 0.2, Ur Leukocyte Esterase Negative, Urine RBC Occasional, Urine WBC Occasional, Ur Squamous Epith Cells 10-20, Amorphous Sediment 3+, Urine Bacteria 2+, Urine Mucus 1+ 09/09/25 18:40: WBC 8.1, RBC 4.20, Hgb 9.0 L, Hct 29.3 L, MCV 69.8 L, MCH 21.4 L, MCHC 30.7 L, RDW 14.6, Plt Count 218, MPV 9.0, Neut % (Auto) 82.3 H, Lymph % (Auto) 11.2, [place] % (Auto) 4.8, Eos % (Auto) 1.1, Baso % (Auto) 0.2, Neut # (Auto) 6.7, Lymph # (Auto) 0.9, [place] # (Auto) 0.4, Eos # (Auto) 0.1, Baso # (Auto) 0.0, Sodium 132 L, Potassium 3.4 L, Chloride 103, Carbon Dioxide 22, Anion Gap 10.4, BUN 5 L, Creatinine 0.60, Estimated Creat Clear 140, Estimated GFR 116, Est GFR ( Amer) 140, Glucose 119 H, Calcium 8.6, Magnesium 1.6, Total Bilirubin 0.4, AST 21, ALT 12, Alkaline Phosphatase 82, Total Protein 7.4, Albumin 4.0, Globulin 3.4 H, Albumin/Globulin Ratio 1.2 09/09/25 18:40 09/09/25 18:40 Orders (Tests/Meds): ED MEDICATIONS Discontinued Medications Generic Name Dose Route Start Last Admin Trade Name Freq PRN Reason Stop Dose Admin Sodium Chloride 1,000 mls @ 999 mls/hr 09/09/25 18:30 09/09/25 19:59 Sod Chlor 0.9% 1000ml Bag IV 09/09/25 19:30 Infused .Q1H1M ONE Infusion ORDERS Category Date Time Status CBC w/Auto Diff [Complete Blood Count Auto Diff] Stat Lab 09/09/25 18:40 Completed CMP [Comprehensive Metabolic Panel] Stat Lab 09/09/25 18:40 Completed MAG [Magnesium] Stat Lab 09/09/25 18:40 Completed Urinalysis and Microscopic Stat Lab 09/09/25 18:23 Completed Urine Culture Stat Micro 09/09/25 18:26 Completed Medical Decision Narrative: Patient is a 30-year-old female who is 14 weeks who presented to the emergency department with urinary symptoms and flank pain. On arrival, patient was hemodynamically stable with unremarkable vital signs. Differential includes but not limited to: Urinary tract infection, pyelonephritis, sepsis, dehydration, amongst others. Patient's labs were reviewed and interpreted by myself: CBC showed no leukocytosis, hemoglobin was stable. CMP was unremarkable except for mild hypokalemia of 3.4. UA was reviewed and interpreted by myself and showed 2+ bacteria negative leuk esterase, negative nitrates occasional white blood cells. Patient was given IV fluids in the emergency department. At this time, given patient's unremarkable workup and normal urine I did not feel the patient warranted antibiotics. Patient was discharged home in stable condition advised to follow-up with OB as scheduled. Critical Care Critical Care Time Critical Care Time: No
[2025-09-09 18:16] VITALS: BP 133/79; PULSE 106; RESP 16; TEMP 36.9; O2SAT 100; BMI 24.1
--- OUTSIDE RECORDS SUMMARY | 2025-09-09 18:20 | XMS_ITS | Patient Health Record ---
Author Organization [facility] Address [address] [place] [id number] Phone [phone] Care Team Providers Care Heat Treat Worker Name Role Phone Page Velásquez Unavailable [phone] Migration, Provider Unavailable Unavailable Reason For Referral [...] Active EUTHYROX 75 MCG TABLET *Reorder from [facility] for eRx and Interaction Alerts* Active hydroCHLOROthiazide 12.5 MG Tablet Oral Active BD PANKAJ 2ND GEN PEN NEEDLE 32 GAUGE X / *Reorder from [facility] for eRx and Interaction Alerts* Active Saxenda 18 MG/3ML Solution Pen-injector Subcutaneous Active Social History Social History Additional Details Category Social Info Options Details Migrated Social History Migrated Social History Tobacco Years: Never smoker 07/12/2021 Problems Problem Type SNOMED Code ICD Code Onset Dates Problem Status W/U Status Risk Notes Problem History of suspected exposure to biological agent (32546454853649 ) Encounter for observation for suspected exposure to other biological agents ruled out (Z03.818) Active confirmed Encounters Encounter Location Date Provider Diagnosis [address] [id number] 06/07/2025 Provider Migration [address] [address] 06/08/2025 Provider Migration Plan Of Treatment No Information Insurance Providers Payer Name Payer Address Payer Phone Subscriber Number Group Number Insured Name Patient Relationship to Insured Coverage Start Date Coverage End Date [id number] (P[place]) [address] [place] [phone] [id number] JANE ALBARADO Spouse - patient is the spouse of the insured
--- OUTSIDE RECORDS SUMMARY | 2025-09-09 18:20 | XMS_ITS | Encounter Summary ---
Author Organization Healthcare Address [address] [id number] Care Team Providers Care White Shoe Examiner Name Role Phone Pcp, No Primary Care Provider Nadia Todd MD Primary Care Provider [phone] Pcp, No Primary Care Provider Nadia Todd MD Primary Care Provider [phone] Encounter Details Date Type Department Care Team (Late Contact Info) Description 11/05/2019 [facility] Historical [facility] [address] [place] [address] Marla Sin, RN [id number] [address] [place] [address] Social History Tobacco Use Types Packs/Day Years [...] EDT Procedure Visit Obstetrics & Gynecology [address] [place] [address] Tres Ybarra MD [address] [place] [address] documented as of this encounter Visit Diagnoses Not on filedocumented in this encounter Care Teams White Shoe Examiner Relationship Specialty Start Date End Date Pcp, No [address] [place] [address] PCP - General 08/07/21 08/08/21 Nadia Goodson MD [address] [place], [place] [id number] PCP - General 08/09/21 08/09/21 Pcp, No [address] [place] [address] PCP - General Family Medicine 07/08/22 01/16/23 Nadia Goodson MD [address] [place] [id number] PCP - General 01/17/23 documented as of this encounter
--- OUTSIDE RECORDS SUMMARY | 2025-09-09 18:20 | XMS_ITS | Clinical Summary ---
Author Organization [facility] Address [address] [place] [address] Care Team Providers Care Speech Assistant Name Role Phone Nadia Goodson MD Primary Care Provider [phone] Allergies Active Allergy Reactions Criticality Noted Date [...] date. Follow up as needed, reviewed precautions. Immunizations Immunization Administration Dates Next Due Influenza, [...] Recorded Patient Health Questionnaire-2 Score 0 04/08/2025 [place] Depression Scale Answer Date Recorded [place] Depression Scale Total 0 02/23/2024 The thought [...] Visit Obstetrics & Gynecology [address] [place] [address] Tres Ybarra MD [address] [place] [address] Health Maintenance Due Date Last Done Comments [facility]-/Child/Adol SDOH Screenings 1993 [facility]- SDOH Screenings 2011 [facility]-Adult SDOH Screenings 2011 [facility]-Hepatitis B Vaccines (1 of 3 - 19+ 3-dose series) 2012 [facility]-Varicella Vaccines (2 of 2 - 13+ 2-dose series) 05/27/2015 04/29/2015 HPV Vaccines (1 - 3-dose SCDM series) 2020 [facility]-WGUNM-02 Vaccine (3 - Moderna risk series) 01/06/2021 [...] Procedure Name Priority Date/Time Associated Diagnosis Comments REFERRED THINPREP PAP AND HPV (SO) Routine [...] Recently Relevant to Health Maintenance Results * Referred ThinPrep Pap and HPV (SO) (02/06/2025 8:23 AM EDT) Pap, Source Cx/Vagina 02/13/2025 12:50 PM EDT [facility] EER Referred ThinPrep Pap and HPV See Note 02/13/2025 12:50 PM EDT [facility] ([facility]) PAP, THINPREP Normal 02/13/2025 12:50 PM EDT [facility] ([facility]) High Risk HPV Normal 02/13/2025 12:50 PM EDT [facility]) Swab Vaginal and cervical cytologic material / Unknown Non-blood Collection / Unknown 02/06/2025 8:23 AM EDT 02/06/2025 12:54 PM EDT Narrative [facility] ([facility]) - 02/13/2025 12:50 PM EDT Authorized individuals can access the [facility] Enhanced Report with an [facility] Connect account using the following link. Your local lab can assist you in obtaining the patient report if you don't have a Connect account. [email or web address] Performed By: [facility] [address] [place] [id number] Application Integration Engineer: Thompson Correa MD, PhD CLIA Number: [id number] SPECIMEN PART A. Cervical, Endocervical, Vaginal, ThinPrep Pap (Cryptographer) CYTOLOGY HX Date of Last Menstrual Period: N FINAL DIAGNOSIS INTERPRETATION: Negative for Intraepithelial Lesion or Malignancy. SPECIMEN ADEQUACY:Satisfactory for evaluation. Endocervical/transformation zone component present. Electronically Signed Out : [email or web address] Performed by: [facility] [address] [place] [address] [place] [address] Desire Alvarez MD, HR-HPV: Negative Test performed by the FDA-approved Hologic (Gen-Probe) APTIMA HPV test, which detects HPV genotypes: 16, 18, 31, 33, 35, 39, 45, 51, 52, 56, 58, 59, 66, and 68. This assay has been cleared for the specimen types listed below. Other specimen types have not been validated for this assay. -Clinician-collected ThinPrep Pap specimens. Performed by: [facility] [address] [place] [address] [place] [address] Desire Alvarez MD, Tres Ybarra MD LAB REF LAB BLOOD AND FLUID ORD Final Result [facility] [address] [id number] * HIV 1 & 2 Antibody/Antigen Screen (05/29/2023 10:20 AM EDT) HIV 1 & 2 Antibody/Antigen Screen Non Reactive Non Reactive 05/29/2023 2:06 PM EDT [facility] Comment:Screening for HIV 1 & 2 antibodies, and P24 antigen is NONREACTIVE. No confirmatory testing is required. Blood Venous blood specimen / Unknown Venipuncture / Unknown 05/29/2023 10:20 AM EDT 05/29/2023 1:01 PM EDT Result Mary Ybarra MD LAB BLOOD ORDERABLES Final Resu lt Performing Organization Address City/[facility]/ZIP Co de Phone Number [facility] [address] [place] [address] * Hepatitis C Antibody (05/29/2023 10:20 AM EDT) Hepatitis C Antibody Negative Negative 05/29/2023 2:02 PM EDT [facility] Blood Venous blood specimen / Unknown Venipuncture / Unknown 05/29/2023 10:20 AM EDT 05/29/2023 1:01 PM EDT Result Mary Ybarra MD LAB BLOOD ORDERABLES Final Resu lt Performing Organization Address City/[facility] Co de Phone Number [facility] [address] [place] [address] from Last 3 Months or Most Recently Relevant to Health Maintenance Insurance [facility] Advance Directives * Full Code (Latest Code Status on File) Date Activated Date Inactivated Comments 08/09/2021 8:28 PM 08/10/2021 1:42 PM Question Answer Comments Patient has decision-making capacity? Yes * Full Code Date Activated Date Inactivated Comments 08/08/2021 3:47 AM 08/09/2021 12:51 AM Question Answer Comments Patient has decision-making capacity? Yes Care Teams Speech Assistant Relationship Specialty Start Date End Date Nadia Goodson MD [address] [place] [address] PCP - General 01/17/23
--- OUTSIDE RECORDS SUMMARY | 2025-09-09 18:20 | XMS_ITS | Encounter Summary ---
Author Organization [facility] Address [address] [place] [address] Care Team Providers Care Buzzsaw Operator Helper Name Role Phone Pcp, No Primary Care Provider Nadia Todd MD Primary Care Provider [phone] Pcp, No Primary Care Provider Nadia Todd MD Primary Care Provider [phone] Encounter Details Date Type Department Care Team (Late st Contact Info) Description 10/31/2019 [facility] En[facility] [address] [place] [address] Provider, [address] [address] Social History Tobacco Use Types [...] EDT Procedure Visit Obstetrics & Gynecology [address] [place] [address] Tres Ybarra MD [address] [place] [address] documented as of this encounter Visit Diagnoses Not on filedocumented in this encounter Care Teams Buzzsaw Operator Helper Relationship Specialty Start Date End Date Pcp, No [address] [place] [address] PCP - General 08/07/21 08/08/21 Nadia Goodson MD [address] [place] [address] PCP - General 08/09/21 08/09/21 Pcp, No [address] [place] [address] PCP - General Family Medicine 07/08/22 01/16/23 Nadia Goodson MD [address] [place] [address] PCP - General 01/17/23 documented as of this encounter
--- OUTSIDE RECORDS SUMMARY | 2025-09-09 18:20 | XMS_ITS | Patient Health Record ---
Author Organization [facility] Address [address] [facility] [address] [place] [address] Care Team Providers Care Data Visualization Developer Name Role Phone Maggie Tenorio [phone] Allergies Allergen (clinical drug ingredient) Drug/Non Drug [...] Notes Problem Noninflammatory disorder of the vagina (41178325) Bloody vaginal discharge (N89.8) 02/03/20 21 Active [...]
--- OUTSIDE RECORDS SUMMARY | 2025-09-09 18:20 | XMS_ITS | Encounter Summary ---
Author Organization [facility] Address [address] [place] [id number] Care Team Providers Care Job Counselor Name Role Phone Nadia Drummond MD Primary Care Provider [phone] Encounter Details Date Type Department Care Team (Late st Contact Info) Description 07/24/2025 Telephone [facility] ENDO[facility] [address] [place] [address] Cheri Harden DO [address] [place], [place] [id number] Social History Tobacco Use Types Packs/Day Years [...] EDT TEREZA visit needed with me or APPLICATIONS SYSTEMS ENGINEER/PA (this week or next). Please schedule. * [...] these labs. She had labs done at [facility]. Her OB is Dr. Marie. She would like a call back. documented in this encounter Plan of Treatment Upcoming Encounters Date Type Department Care Team (Late st Contact Info) Description 11/03/2025 10:30 AM EST Office Visit [facility] ENDO[facility] [address] [address] Cheri Harden, DO [address] [address] documented as of this encounter Visit Diagnoses Not on filedocumented in this encounter Care Teams Job Counselor Relationship Specialty Start Date End Date Nadia Drummond MD PCP - General Family Medicine 07/15/20 documented as of this encounter
--- OUTSIDE RECORDS SUMMARY | 2025-09-09 18:20 | XMS_ITS | Encounter Summary ---
Author Organization [facility] Address [address] [place] [address] Care Team Providers Care Gambling Monitor Name Role Phone Nadia Drummond MD Primary Care Provider [phone] Encounter Details Date Type Department Care Team [...] Visit [facility] END[facility] [address] [place] [address] Cheri Harden, [address] [place] [address] documented as of this encounter Visit Diagnoses Not on filedocumented in this encounter Care Teams Gambling Monitor Relationship Specialty Start Date End Date Nadia Drummond MD PCP - General Family Medicine 07/15/20 documented as of this encounter
--- OUTSIDE RECORDS SUMMARY | 2025-09-09 18:21 | XMS_ITS | Clinical Summary ---
Author Organization [facility] Address [address] [place] [address] Care Team Providers Care Insurance Sales Assistant Name Role Phone Nadia Drummond MD Primary Care Provider [phone] Allergies Active Allergy Reactions Criticality Noted Date [...] Description 07/28/2025 11:15 AM EDT Office Visit [facility] ENDOCRINOLOG[facility] [address] [place] [address] Cheri Harden DO Acquired hypothyroidism (Primary Dx); Solitary thyroid nodule 07/28/2025 Travel 07/24/2025 Telephone [facility] END[facility]CR[facility] [address] [place] [address] Cheri Harden DO from Last 3 Months [...] Caitlin Obesity Mother Caitlin Obesity Paternal Grandmother [place] Relation Name Status Comments Brother Alive Father Anam Alive Maternal Grandfather Aren Maternal Grandmother Yvette Mother Caitlin Alive Paternal Grandfather Paternal Grandmother [place] Social History Tobacco Use Types Packs/Day Years [...] Description 11/03/2025 10:30 AM EST Office Visit [facility] END[facility]CR[facility] [address] [place] [address] Cheri Harden, [address] [place] [address] Health Maintenance Due Date Last Done Comments [...] 02/16/2022 3:08 PM EDT Performed at: - [facility] [address] [place] [id number] Military Professional: Guillermo Choi PhD, Phone: [phone] Patient Fasting: N Charla Vegas PA-C LAB BLOOD ORDERABLES Final Result [facility] ([facility]) [address] [place] [address], [facility] [address] [place] [address], from Last 3 Months or Most Recently Relevant to Health Maintenance [place] [address] [facility] PPO Care Teams Insurance Sales Assistant Relationship Specialty Start Date End Date Nadia Drummond MD PCP - General Family Medicine 07/15/20
--- OUTSIDE RECORDS SUMMARY | 2025-09-09 18:21 | XMS_ITS | Data Portability ---
Author Organization [facility] [place] [facility] Address [address] [place] [address] Care Team Providers Care Administrative Nursing Supervisor Name Role Phone NADIA VAUGHN Primary Care Provider Assessment No assessment recorded. Plan of Treatment Reminders Order Date Submit Date Provider Last Modified By Organization Details Last Modified Time Details Appointments None recorded. Lab HbA1c (hemoglobin A1c), blood 2024 025 [email or web address] [facility], [address], [address], [place], [address], 5 12:47:29 TSH + free T4, serum 2024 025 [facility], [address], [address], [place], [address], 5 12:47:30 lipid panel, serum 2024 025 [email or web address] [facility], [address], [address], [place], [address], 5 12:47:30 iron + TIBC + ferritin, serum 2024 025 [email or web address] [facility], [address], [address], [place], [address], 5 12:47:29 folate, serum 2024 025 [facility], [address], [address], [place], [address], 5 12:47:29 prealbumin, serum 2024 025 [email or web address] [facility], [address], [address], [place], [address], 5 12:47:29 thiamine, QN, blood 2024 025 [email or web address] [facility], [address], [address], [place], [address], 5 12:47:29 methylmalon ate, QN, serum or plasma 2024 025 [email or web address] [facility], [address], [address], [place], [address], 5 12:47:29 vitamin D, 25-hydroxy, total, serum 2024 025 [email or web address] [facility], [address], [address], [place], [address], 5 12:47:29 vitamin E, serum 2024 025 [email or web address] [facility], [address], [address], [place], [address], 5 12:47:29 vitamin A (retinol), serum 2024 025 [email or web address] [facility], [address], [address], [place], [address], 5 12:47:29 CBC w/ auto diff 2024 025 [email or web address] [facility], [address], [address], [place], [address], 12:47:29 CMP, serum or plasma 2024 025 [email or web address] [facility], [address], [address], [place], [address], 12:47:29 Referral None recorded. Procedures None recorded. Surgeries None recorded. Imaging MRI, abdomen, w/wo contrast 2023 024 [email or web address] [facility] ([facility]), [address], [place], [address], 08:27:15 Medication Orders Zepbound 10 mg/0.5 mL subcutaneou s pen injector 2024 025 [facility] - [facility], [address], [place], [address], 09:24:46 [email or web address] 4 mg disintegrat ing tablet 2024 025 [facility]259 - [facility], [address], [place], [address], 5 09:24:48 Zepbound 7.5 mg/0.5 mL subcutaneou s pen injector 2024 025 [facility]259 - [facility], [address], [place], [address], 5 14:11:55 Zepbound 5 mg/0.5 mL subcutaneou s pen injector 2024 025 [facility] 7259 - [facility], [address], [place], [address], 09:17:26 Zepbound 2.5 mg/0.5 mL subcutaneou s pen injector 2024 025 [facility] 7259 - [facility], [address], [place], [address], 13:58:34 famotidine 20 mg tablet 2024 025 [facility] 7259 - [facility], [address], [place], [address], 13:40:29 omeprazole 20 mg capsule,del ayed release 2024 025 [facility] 7259 - [facility], [address], [place], [address], 13:40:31 Patient TargetsNo targets recorded. Patient InstructionsNo instructions recorded. Reason for Referral None Reported. Results Created Date Observation Date Name Description Value Unit Range Abnormal Flag Note LastModifiedBy Organization Detail LastModifiedTime 01/10/2001/10/2025 FE+TI BC+FE R iron bind.cap.(TI BC) 479 ug/dL 250-45 0 above high normal Not Available [facility] ([facility]) [address] [place], [address], 01/19/2025 08:36:15 01/10/2001/10/2025 FE+TI BC+FE R UIBC 456 ug/dL 131-42 5 above high normal Not Available [facility] ([facility]) [address] [place], [address], 01/19/2025 08:36:15 01/10/20 25 01/10/2025 FE+TI BC+FE R iron 23 ug/dL 27-159 below low normal Not Available [facility] ([facility]) [address] [place], [address], 01/19/2025 08:36:15 01/10/20 25 01/10/2025 FE+TI BC+FE R iron saturation 5 % 15-55 alert low Not Available [facility] ([facility]) [address] [place], [address], 01/19/2025 08:36:15 01/10/20 25 01/10/2025 FE+TI BC+FE R ferritin 7 NG/mL 15-150 below low normal Not Available [facility] ([facility]) [address] [place], [address], 01/19/2025 08:36:15 01/10/20 25 01/10/2025 TSH+F REE T4 TSH 3.330 uIU/m L 0.450- 4.500 normal Not Available [facility] ([facility]) [address] [place], [address], 01/19/2025 08:36:16 01/10/2001/10/2025 TSH+F REE T4 T4,free(dire ct) 1.20 NG/dL 0.82-1 .77 normal Not Available [facility] ([facility]) [address] [place], [address], 01/19/2025 08:36:16 01/10/2001/10/2025 CBC WITH DIFFE RENTI AL/PL ATELE T WBC 7.2 x10e3 /uL 3.4-10 .8 normal Not Available [facility] ([facility]) [address] [place], [address], 01/19/2025 08:36:16 01/10/20 25 01/10/2025 CBC WITH DIFFE RENTI AL/PL ATELE T RBC 4.86 x10e6 /uL 3.77-5 .28 normal Not Available [facility] ([facility]) [address] [place], [address], 01/19/2025 08:36:16 01/10/20 25 01/10/2025 CBC WITH DIFFE RENTI AL/PL ATELE T hemoglobin 10.0 g/dL 11.1-1 5.9 below low normal Not Available [facility] ([facility]) [address] [place], [address], 01/19/2025 08:36:16 01/10/20 25 01/10/2025 CBC WITH DIFFE RENTI AL/PL ATELE T hematocrit 33.3 % 34.0-4 6.6 below low normal Not Available [facility] ([facility]) [address] [place], [address], 01/19/2025 08:36:16 01/10/20 25 01/10/2025 CBC WITH DIFFE RENTI AL/PL ATELE T MCV 69 fL 79-97 below low normal Not Available [facility] ([facility]) [address] [place], [address], 01/19/2025 08:36:16 01/10/20 25 01/10/2025 CBC WITH DIFFE RENTI AL/PL ATELE T MCH 20.6 pg 26.6-3 3.0 below low normal Not Available [facility] ([facility]) [address] [place], [address], 01/19/2025 08:36:16 01/10/20 25 01/10/2025 CBC WITH DIFFE RENTI AL/PL ATELE T MCHC 30.0 g/dL 31.5-3 5.7 below low normal Not Available [facility] ([facility]) [address] [place], [address], 01/19/2025 08:36:16 01/10/20 25 01/10/2025 CBC WITH DIFFE RENTI AL/PL ATELE T RDW 14.7 % 11.7-1 5.4 Not Available [facility] ([facility]) [address] [place], [address], 01/19/2025 08:36:16 01/10/20 25 01/10/2025 CBC WITH DIFFE RENTI AL/PL ATELE T platelets 265 x10e3 /uL 150-45 0 normal Not Available [facility] ([facility]) [address] [facility], [place], [address], 01/19/2025 08:36:16 01/10/20 25 01/10/2025 CBC WITH DIFFE RENTI AL/PL ATELE T neutrophils 66 % not estab. normal Not Available [facility] ([facility]) [address] [facility], [place], [address], 01/19/2025 08:36:16 01/10/20 25 01/10/2025 CBC WITH DIFFE RENTI AL/PL ATELE T lymphs 24 % not estab. normal Not Available [facility] ([facility]) [address] [facility], [place], [address], 01/19/2025 08:36:16 01/10/20 25 01/10/2025 CBC WITH DIFFE RENTI AL/PL ATELE T monocytes 8 % not estab. normal Not Available [facility] ([facility]) [address] [facility], [place], [address], 01/19/2025 08:36:16 01/10/20 25 01/10/2025 CBC WITH DIFFE RENTI AL/PL ATELE T eos 2 % not estab. normal Not Available [facility] ([facility]) [address] [facility], [place], [address], 01/19/2025 08:36:16 01/10/20 25 01/10/2025 CBC WITH DIFFE RENTI AL/PL ATELE T basos 0 % not estab. normal Not Available [facility] ([facility]) [address] [facility], [place], [address], 01/19/2025 08:36:16 01/10/20 25 01/10/2025 CBC WITH DIFFE RENTI AL/PL ATELE T immature cells BRANCH LEAD Not Available [facility] ([facility]) [address] [place], [address], 01/19/2025 08:36:16 01/10/20 25 01/10/2025 CBC WITH DIFFE RENTI AL/PL ATELE T neutrophils (absolute) 4.7 x10e3 /uL 1.4-7. 0 normal Not Available [facility] ([facility]) [address] [place], [address], 01/19/2025 08:36:16 01/10/20 25 01/10/2025 CBC WITH DIFFE RENTI AL/PL ATELE T lymphs (absolute) 1.7 x10e3 /uL 0.7-3. 1 normal Not Available [facility] ([facility]) [address] [place], [address], 01/19/2025 08:36:16 01/10/20 25 01/10/2025 CBC WITH DIFFE RENTI AL/PL ATELE T monocytes(ab solute) 0.6 x10e3 /uL 0.1-0. 9 normal Not Available [facility] ([facility]) [address] [place], [address], 01/19/2025 08:36:16 01/10/20 25 01/10/2025 CBC WITH DIFFE RENTI AL/PL ATELE T eos (absolute) 0.1 x10e3 /uL 0.0-0. 4 normal Not Available [facility] ([facility]) [address] [place], [address], 01/19/2025 08:36:16 01/10/20 25 01/10/2025 CBC WITH DIFFE RENTI AL/PL ATELE T baso (absolute) 0.0 x10e3 /uL 0.0-0. 2 normal Not Available [facility] ([facility]) [address] [place], [address], 01/19/2025 08:36:16 01/10/20 25 01/10/2025 CBC WITH DIFFE RENTI AL/PL ATELE T immature granulocytes 0 % not estab. Not Available [facility] ([facility]) [address] [facility], [place], [address], 01/19/2025 08:36:16 01/10/20 25 01/10/2025 CBC WITH DIFFE RENTI AL/PL ATELE T immature grans (abs) 0.0 x10e3 /uL 0.0-0. 1 Not Available [facility] ([facility]) [address] [facility], [place], [address], 01/19/2025 08:36:16 01/10/20 25 01/10/2025 CBC WITH DIFFE RENTI AL/PL ATELE T NRBC BRANCH LEAD Not Available [facility] ([facility]) [address] [facility], [place], [address], 01/19/2025 08:36:16 01/10/20 25 01/10/2025 CBC WITH DIFFE RENTI AL/PL ATELE T hematology comments: BRANCH LEAD Not Available [facility] ([facility]) [address] [facility], [place], [address], 01/19/2025 08:36:16 01/10/20 25 01/10/2025 COMP. METAB OLIC PANEL (14) glucose 74 mg/dL 70-99 normal Not Available [facility] ([facility]) [address] [facility], [place], [address], 01/19/2025 08:36:18 01/10/20 25 01/10/2025 COMP. METAB OLIC PANEL (14) BUN 12 mg/dL 6-20 normal Not Available [facility] ([facility]) [address] [place], [address], 01/19/2025 08:36:18 01/10/20 25 01/10/2025 COMP. METAB OLIC PANEL (14) creatinine 0.60 mg/dL 0.57-1 .00 normal Not Available [facility] ([facility]) [address] [place], [address], 01/19/2025 08:36:18 01/10/20 25 01/10/2025 COMP. METAB OLIC PANEL (14) eGFR 123 mL/mi n/1.7 3 >59 normal Not Available [facility] ([facility]) [address] [facility], [place], [address], 01/19/2025 08:36:18 01/10/20 25 01/10/2025 COMP. METAB OLIC PANEL (14) BUN/creatini ne ratio 20 9-23 normal Not Available [facility] ([facility]) [address] [facility], [place], [address], 01/19/2025 08:36:18 01/10/20 25 01/10/2025 COMP. METAB OLIC PANEL (14) sodium 139 mmol/ L 134-14 4 normal Not Available [facility] ([facility]) [address] [place], [address], 01/19/2025 08:36:18 01/10/20 25 01/10/2025 COMP. METAB OLIC PANEL (14) potassium 4.1 mmol/ L 3.5-5. 2 normal Not Available [facility] ([facility]) [address] [place], [address], 01/19/2025 08:36:18 01/10/20 25 01/10/2025 COMP. METAB OLIC PANEL (14) chloride 103 mmol/ L 96-106 normal Not Available [facility] ([facility]) [address] [place], [address], 01/19/2025 08:36:18 01/10/20 25 01/10/2025 COMP. METAB OLIC PANEL (14) carbon dioxide, total 21 mmol/ L 20-29 normal Not Available [facility] ([facility]) [address] [facility] [place], [address], 01/19/2025 08:36:18 01/10/20 25 01/10/2025 COMP. METAB OLIC PANEL (14) calcium 9.0 mg/dL 8.7-10 .2 normal Not Available [facility] ([facility]) [address] [facility] [place] [place], [address], 01/19/2025 08:36:18 01/10/20 25 01/10/2025 COMP. METAB OLIC PANEL (14) protein, total 7.3 g/dL 6.0-8. 5 normal Not Available [facility] ([facility]) [address] [facility], [place], [address], 01/19/2025 08:36:18 01/10/20 25 01/10/2025 COMP. METAB OLIC PANEL (14) albumin 4.8 g/dL 3.9-4. 9 normal Not Available [facility] ([facility]) [address] [facility] [place], [address], 01/19/2025 08:36:18 01/10/20 25 01/10/2025 COMP. METAB OLIC PANEL (14) globulin, total 2.5 g/dL 1.5-4. 5 Not Available [facility] ([facility]) [address] [facility] [place], [address], 01/19/2025 08:36:18 01/10/20 25 01/10/2025 COMP. METAB OLIC PANEL (14) bilirubin, total 0.3 mg/dL 0.0-1. 2 normal Not Available [facility] ([facility]) [address] [facility] [place], [address], 01/19/2025 08:36:18 01/10/20 25 01/10/2025 COMP. METAB OLIC PANEL (14) alkaline phosphatase 104 IU/L 44-121 normal Not Available [facility] ([facility]) [address] [place], [address], 01/19/2025 08:36:18 01/10/20 25 01/10/2025 COMP. METAB OLIC PANEL (14) AST (SGOT) 16 IU/L 0-40 normal Not Available [facility] ([facility]) [address] [facility] [place], [address], 01/19/2025 08:36:18 01/10/20 25 01/10/2025 COMP. METAB OLIC PANEL (14) ALT (SGPT) 11 IU/L 0-32 normal Not Available [facility] ([facility]) [address] [place], [address], 01/19/2025 08:36:18 01/10/20 25 01/10/2025 LIPID PANEL cholesterol, total 161 mg/dL 100-19 9 normal Not Available [facility] ([facility]) [address] [place], [address], 01/19/2025 08:36:18 01/10/20 25 01/10/2025 LIPID PANEL triglyceride s 94 mg/dL 0-149 normal Not Available [facility] ([facility]) [address] [place], [address], 01/19/2025 08:36:18 01/10/20 25 01/10/2025 LIPID PANEL HDL cholesterol 60 mg/dL >39 normal Not Available [facility] ([facility]) [address] [place], [address], 01/19/2025 08:36:18 01/10/20 25 01/10/2025 LIPID PANEL VLDL cholesterol jessica 17 mg/dL 5-40 Not Available [facility] ([facility]) [address] [place], [address], 01/19/2025 08:36:18 01/10/20 25 01/10/2025 LIPID PANEL LDL chol calc (nih) 84 mg/dL 0-99 Not Available [facility] ([facility]) [address] [facility], [place], [address], 01/19/2025 08:36:18 01/10/20 25 01/10/2025 LIPID PANEL LDL calc comment: BRANCH LEAD Not Available [facility] ([facility]) [address] [facility], [place], [address], 01/19/2025 08:36:18 01/10/20 25 01/19/2025 VITAM IN E vitamin E(alpha tocopherol) 14.6 mg/L 5.9-19 .4 Not Available [facility] ([facility]) [address] [facility], [place], [address], 01/19/2025 08:36:19 01/10/20 25 01/19/2025 VITAM IN [...] in E defic ient. Not Available [facility] ([facility]) [address] [facility], [place], [address], 01/19/2025 08:36:19 01/10/20 25 01/10/2025 HEMOG LOBIN A1C hemoglobin A1C 5.1 % 4.8-5. 6 normal Predi abete s: 5.7 - 6.4 Diabe [place]: >6.4 Glyce quintin contr ol for adult s with diabe [place]: <7.0 Not Available [facility] ([facility]) [address] [facility], [place], [address], 01/19/2025 08:36:19 01/10/20 25 01/10/2025 FOLAT E (FOLI C ACID) , SERUM folate (folic acid), serum 11.6 NG/mL >3.0 normal A serum folat e victoriano ntrat ion of less than 3.1 ng/mL is consi dered to repre sent clini jessica defic iency . Not Available [facility] ([facility]) [address] [facility], [place], [address], 01/19/2025 08:36:20 01/10/2001/19/2025 VITAM IN A, SERUM [...] e jonathan cteri stics deter mined by [employer]. It has not been clear ed or appro shae by the Food and Drug Admin istra tion. Not Available [facility] ([facility]) [address] [facility], [place], [address], 01/19/2025 08:36:21 01/10/20 25 01/10/2025 VITAM IN D, 25-HY DROXY vitamin D, [...] um and D. Amalia red [place]: The Natio nal [facility] Press . 2. Holic richard [place], Rose [place], Arian off-F errar i NAGY, et al. Evalu ation , treat ment, and preve ntion of vitam in D defic iency : an Endoc rine Socie ty clini jessica pract ice guide line. JCEM. 2010; 96(7) :1911 -30. Not Available [facility] ([facility]) [address] [facility], [place], [address], 01/19/2025 08:36:21 01/10/20 25 01/13/2025 VITAM IN B1 (THIA MINE) , BLOOD vit. B1, whole blood 136.6 nmol/ L 66.5-2 00.0 Not Available [facility] ([facility]) [address] [place], [address], 01/19/2025 08:36:22 01/10/20 25 01/15/2025 METHY LMALO HIWOT ACID, SERUM methylmaloni c acid, serum 177 nmol/ L 0-378 Not Available [facility] ([facility]) [address] [place], [address], 01/19/2025 08:36:22 01/10/20 25 01/10/2025 PREAL BUMIN prealbumin 23 mg/dL 14-35 Not Available [facility] ([facility]) [address] [place], [address], 01/19/2025 08:36:23 04/15/20 24 04/15/2024 MRI ABD w/w/O [facility] [address] [place] [address] Phone: Fax: Name: WALLY PHILLIPS Exam Date: 024 : [birth year] Age 28 years Gender : F Access ion: [id number] Physic jarett: NADIA DRUMMOND ty: [facility] Facili ty HSV: Outpat ient Exam: [...] Thank you for referr WALLY Villanueva to [facility] Legall y carter gallego by TARA Aviles III 04-15 15:49: 37 CC'ed Logic: Orderi ng Provid er: RODERICK GORE CC Provid er: RODERICK GORE Attend ing Provid er: RODERICK GORE Referr ing Provid er: RODERICK GORE Admitt ing Provid er: RODERICK [email or web address] [facility] [address], [place], [address], 01/09/2025 13:34:49 03/25/20 25 03/25/2025 XR, knee No observ ation record ed. [address], [place], [place], [address], 03/27/2025 18:08:14 04/24/20 25 04/24/2025 XR, chest No observ ation record ed. [email or web address], [place], [place], [address], 04/29/2025 18:06:34 04/24/20 25 04/24/2025 elect rocar diogr am No observ ation record ed. [email or web address], [place], [place], [address], 04/29/2025 18:05:32 07/12/20 25 2025 US, trans vagin al No observ ation record ed. [address], [place], [place], [address], 07/15/2025 16:40:28 07/30/20 25 07/30/2025 elect rocar diogr am No observ ation record ed. [address], [place], [address], 07/30/2025 16:55:19 Result Notes None recorded. Problems Name Problem SNOMED Code Status Onset Date Resolution Date Notes Provider Name and Address Organization Details Recorded Time Obesity 315458440 Active [address], [address] , [place], [address] , [facility] - [place] & [place] 16:39:55 Acquired hypothyroi dism 385335038 Active [address]UNIR [address], [address], [place], [address] , [place] - [facility] - [place] & [place] 2 16:39:55 Indigestio n 875383317 Active [address], [place] [address] [facility], [place], [address] , [place] - [facility] - [place] & [place] 2 16:39:55 Disorder of gastrointe stinal tract 365877442 Active MUNIR [address], [place] [address] [facility], [place], [address] , [place] - [facility] - [place] & [place] 2 16:39:55 Shoulder strain 572870172 Active MUNIR [address], [place] [address] [facility], [place], [address] , [place] - [facility] - [place] & [place] 2 16:39:55 Prolactin level above reference range 009825463 Active [address]UN[address], [place] [address] [facility], [place], [address] , [place] - [facility] - [place] & [place] 2 16:39:55 Plain X-ray result abnormal 655628816 Active [address]UNIR [address]IS[address], [place] [address] [facility], [place], [address] , [place] - [facility] - [place] & [place] 2 16:39:55 Polycystic ovaries Active MUNIR [address], [place] [address] [facility], [place], [address] , [place] - [facility] - [place] & [place] 2 16:39:55 Missed period 77923693 Active MUNIR [address], [place] [address] [facility], [place], [address] , [place] - [facility] - [place] & [place] 2 16:39:55 Mild depression 462450193 Active [address]UN[address], [place] [address] [facility], [place], [address] , [place] - [facility] - [place] & [place] 2 16:39:55 Stress 48776327 Active MUNIR [address], LD [address], [place], [address] , [place] - [facility] - [place] & [place] 2 16:39:55 Mixed hyperlipid emia 415826319 Active [address]UNIR [address], [place] [address] [facility], [place], [address] , [place] - [facility] - [place] & [place] 2 16:39:55 Liver enzymes level above reference range 591792569 Active [address]UNIR [address], LD [address] [facility], [place], [address] , [place] - [facility] - [place] & [place] 2 16:39:55 Recurrent major depressive episodes, moderate 384323283 Active MUNIR [address], [place] [address] [facility], [place], [address] , [place] - [facility] - [place] & [place] 2 16:39:55 Mood disorder 66692699 Active MUNIR [address], LD [address] [facility], [place], [address] , [place] - [facility] - [place] & [place] 2 16:39:55 Essential hypertensi on 36771215 Active MUNIR [address], LD [address] [facility], [place], [address] , [place] - [facility] - [place] & [place] 2 16:39:55 Steatotic liver disease 186086342 Active MUNIR [address], LD [address] [facility], [place], [address] , [place] - [facility] - [place] & [place] 2 16:39:55 Dysthymia 96052644 Active MUNIR [address], LD [address] [facility], [place], [address] , [place] - [facility] - [place] & [place] 2 16:39:55 Thyroid nodule 996100553 Active MUNIR G[address], LD [address] [facility], [place], [address] , [place] [facility] [place] 2 16:39:55 Morbid obesity 661171535 Active MUNIR [address], [place] [address] [facility], [place], [address] , [place] - [facility] - [place] & [place] 2 16:39:55 Goiter 8919116 Active MUNIR [address], [place] [address] [facility], [place], [address] , [place] - [facility] - [place] & [place] 2 16:39:56 Elevated level of transamina se and lactic acid dehydrogen ase 940735721 Active MUNIR [address], [place] [address] [facility], [place], [address] , [place] - [facility] - [place] & [place] 2 16:39:56 Nausea 921775172 Active MUNIR MERC[address], [place] [address] [facility], [place], [address] , [place] - [facility] & [place] 2 16:39:56 Body mass index 30+ - obesity 765759902 Active MUNIR MERCERLOLY [address], LD [address] [facility], [place], [address] , [place] - [facility] & [place] 2 16:39:56 Irregular intermenst rual bleeding 22978670 Active MUNIR POTTER[address], [place] [address] [facility], [place], [address] , [place] - [facility] & [place] 2 16:39:56 Anxiety 25074468 Active MUNIR [address], [place] [address] [facility] [facility], [place], [address] , [place] [facility] & [place] 2 16:39:56 Nodule of lung 656636117 Active [address], LD [address] [facility], [place], [address] , [place] [facility] [facility] & [place] 2 16:39:56 Carpal tunnel syndrome of right wrist 1495278182595 [address], LD [address], [place], [address] , [place] & [place] 2 16:39:56 Abdominal pain 27462191 Active MUNIR GARCIA RD, LD [address], [place], [address] , [place] & [place] 2 16:39:56 Polycystic ovary syndrome 092274608 Active 2021 YONATHAN Anderson [address], [place], [address] , [place] [facility] & [place] 2 09:00:55 Vitamin D deficiency 97087250 Active [address], LD [address], [place], [address] , [place] [facility] & [place] 2 16:39:55 Laparoscop ic sleeve gastrectom y Active [address], LD [address] [facility], [place], [address] , [place] [facility] & [place] 2 16:39:55 Hypothyroi dism 01696313 Active [address], LD [address] [facility], [place], [address] , [place] & [place] 2 16:39:56 Pain in throat 536272317 Active 2021 TREMAYNE ARROYO null[place] [facility] & [place] 2 17:14:51 Intentiona l weight loss 072706770 Active 2021 Angelito Estrada DNP, RADIOLOGY MANAGER, BRANCH LEAD-C [address] , [place], [address] , [place] & [place] 2 11:51:56 Heartburn 98971617 Active 2022 Angelito Estrada DNP, DUONG, BRANCH LEAD-C [address] [facility], [place], [address] , [place] [facility] & [place] 3 13:15:59 Fatigue 50863955 Active 2023 Angelito Estrada, DNP, RADIOLOGY MANAGER, BRANCH LEAD-C [address] [facility], [place], [address] , [place] [facility] & [place] 4 10:28:55 Problem Notes None recorded. Procedures Surgical History Date Name Laterality Status Provider Name and Address Organization Details Recorded Time 08/06 Laparoscopy completed Isabel Rothamer [place] & [place] 5 11:39:58 11/06 Dive Superintendent Surgery completed Isabel [place]amer [place] & [place] 5 11:29:41 10/06 Date of Last Pap Smear completed Ela Castillo [place] & [place] 4 11:58:37 09/23 laparoscopic sleeve gastrectomy completed Ana Moya [place] & [place] 2 13:07:03 07/15 esophagogastroduodenoscopy completed Karly conner [place] & [place] 5 11:42:14 11/06 Carpal Tunnel Surgery completed Paige Ochoa [place] & [place] 4 15:50:19 06/16 fine needle biopsy of thyroid completed Isabel [place] & [place] 5 11:39:48 02/10 esophagogastroduodenoscopy completed Karly da [place] & [place] 5 11:33:29 11/06 Knee Surgery completed Isabel [place] [facility] [facility] & [place] 5 11:37:12 11/06 Ovarian Cystectomy completed Isabel [place]amer [place] [facility] & [place] 5 11:37:19 11/06 cholecystectomy completed Paige LEAVITT - [facility]NT [facility] & [place] 4 15:49:18 11/06 extraction of wisdom tooth completed Karly da Flex LEAVITT - [facility]NT [facility] & [place] 5 11:37:41 11/06 tonsillectomy completed Paige Torres [facility] & [place] 4 15:49:26 11/06 ENT Surgery completed Isabel Woodsamer TREE [facility]NT [facility] & [place] 5 11:29:41 Imaging Results None recorded. Procedure Notes None recorded. Medical Equipment None Reported. Allergies Allergen ID Allergen Name Allergen Category Reaction Reaction Severity Criticality Documentation Date Start Date Code Code System Note Provider Name and Address Organization Details Recorded Time 92577 amoxicill in medicatio n nausea rash vomiting Not available Not available Not available low 07/21/2022 723 RxNorm Hever ates cepha lospo rins Isabel Rothamer null, [place] - [facility] & [place] 5 11:58:46 37220 phentermi ne medicatio n tachycard ia moderate Not available 07/21/[address], LD [address] , [place], [address] [place] [address] - NT [facility] & [place] 2 16:40:31 750113 Non-stero idal anti-infl ammatory agent (substanc e) medicatio n other Not available low 08/29/2024 08504 5008 SNOMED Cant take with recen t gastr ic sleev e surge ry Isabel [place] null[place] [facility] & [place] 5 11:58:59 64014 Derm-Appl y medicatio n Not available Not available low 08/31/2022 derma cortez Isabel [place], [place] [facility] & [place] 5 11:59:05 10245 hydrocodo ne Not available rash severe high 08/31/2022 5489 RxNorm Isabel [place] & [place] 11:58:49 Medications Name Sig Start Date Stop [...] Available progesteron e micronized 200 mg capsule INSERT 1 CAPSULE VAGINALLY ONCE DAILY AT NIGHT AT BEDTIME active Not Available Not Available No t Available gabapentin 300 mg capsule Take 1 [...] completed Not Available Not Available Not Available letrozole 2.5 mg tablet TAKE 1 TABLET BY MOUTH ONCE DAILY WITH OR WITHOUT FOOD active Not Available Not Available No t Available methylpredn isolone 4 mg tablets in [...] Not Available Not Available Not Available BD Rahdika 2nd Gen Pen Needle 32 gauge x [...] 2.5 mg/0.5 mL subcutaneou s pen injector active Not Available Not Available Not Available Zepbound 7.5 mg/0.5 mL subcutaneou s pen injector INJECT CONTENTS OF 1 PEN-INJEC TOR SUBCUTANE OUSLY ONCE A WEEK active Not Available Not Available No t Available Vitals Date Recorded Body height Body temperature Heart rate Body mass index (BMI) Body weight Systolic And Diastolic Provider Name and Address Organization Details Last Updated DateTime 5 165.1 cm 99.2 [degF] 96 /min 28.8 kg/m2 65923.4 8 g 137/71 mm[Hg] Bernie LEAVITT [facility] & [place] 13:25:42 Date Recorded Body height Body mass index (BMI) Body weight Provider Name and Address Organization Details Last Updated DateTime 02/06/2025 165.1 cm 27.1 kg/m2 24315.56 g Reinaldo JoyBrianKomal aviles [facility] & [place] 02/06/2025 14:58:01 Date Recorded Body height Body mass index (BMI) Body weight Provider Name and Address Organization Details Last Updated DateTime 03/06/2025 165.1 cm 25.6 kg/m2 13048.22 g Bernie LEAVITT [facility] & [place] 03/06/2025 13:55:52 Date Recorded Body height Body mass index (BMI) Body weight Body temperature Oxygen saturation Oxygen saturation in Arterial blood by Pulse oximetry Heart rate Systolic And Diastolic Provider Name and Address Organization Details Last Updated DateTime 165.1 cm 27 kg/m2 99509.9 6 g 97.7 [degF] 98 % 98 % 64 /min 120/80 mm[Hg] Ela LEAVITT [facility] & [place] 10:23:13 Date Recorded Body height Body mass index (BMI) Body weight Provider Name and Address Organization Details Last Updated DateTime 04/04/2025 165.1 cm 24.5 kg/m2 82984.08 g Bernie LEAVITT [facility] & [place] 04/04/2025 09:11:54 Social History Question Answer Notes LastModified by Organizat ion Details LastModified Time Tobacco Smoking Status Never Smoker Ana Jenna carcamo, TREE [facility] & [place] 07/21/2022 13:33:48 Do You Have An Advance Directive? No [email or web address] Information not available 09/27/2022 Are You Blind Or Do You Have Difficulty Seeing? Yes Information not available 09/27/2022 Are You Deaf Or Do You Have Serious Difficulty Hearing? No [email or web address] Information not available 03/28/2023 What Was The [...] use any illicit or recreational drugs? No [email or web address] Information not available 07/21/2022 Do you or have you ever used any other forms of tobacco or nicotine? No Information not available 03/28/2023 What is your level of alcohol consumption? None [email or web address] Information not available 07/21/2022 Do you or have you ever used smokeless tobacco? Never used smokeless tobacco Information not available 01/21/2025 What is your exercise level? Moderate [email or web address] Information not available 09/27/2022 Mental Status Question Answer Note LastModified by Organization D etails LastModified Time Do you feel stressed (tense, restless, nervous, or anxious, or unable to sleep at night)? [id number] [email or web address] Information not available 09/27/2022 Family History Relationship Description Onset Age of this Age Resolved Age Notes LastModified by Organization Details LastModified Time Mother Diabetes mellitus [email or web address] Not available 02/06 14:55:01 Mother Essential hypertension [email or web address] Not available 14:55:01 Mother Obesity [email or web address] Not available 1 08:41:00 Mother Hyperlipidem ia [email or web address] Not available 02/06 14:55:01 Mother Disease of liver pt. added direct ly (01/09) [email or web address] Not available 01/09/2025 10:35:03 Mother Cirrhosis - non-alcoholi c [email or web address] Not available 02/06 14:55:01 Mother Anemia [email or web address] Not available 01/21/2025 11:57:09 Maternal Grandfather Diabetes mellitus [email or web address] Not available 02/06 14:55:01 Maternal Grandfather Essential hypertension Not available 14:55:01 Maternal Grandfather Coronary arterioscler osis [email or web address] Not available 02/06 14:55:01 Maternal Grandfather Obesity [email or web address] Not available 2023 08:41:17 Maternal Grandfather Hyperlipidem ia Not available 02/06 14:55:01 Maternal Grandfather Myocardial infarction [email or web address] Not available 01/21 11:56:03 Maternal Grandfather Sleep apnea [email or web address] Not available 02/06/2025 14:55:01 Father Essential hypertension [email or web address] Not available 14:55:01 Father Coronary arterioscler osis Not available 02/06 14:55:01 Father Obesity [email or web address] Not available 1 08:41:09 Father Hyperlipidem ia [email or web address] Not available 02/06 14:55:01 Father Heart disease [email or web address] Not available 2024 11:36:37 Father Diabetes mellitus [email or web address] Not available 02/06 14:55:01 Father Myocardial infarction [email or web address] Not available 01/21 11:55:23 Father Kidney disease [email or web address] Not available 2024 11:55:46 Maternal Grandmother Essential hypertension [email or web address] Not available 14:55:01 Maternal Grandmother Obesity [email or web address] Not available 2023 08:41:13 Maternal Grandmother Malignant neoplastic disease [email or web address] Not available 02/06 14:55:01 Paternal Grandmother Obesity [email or web address] Not available 2023 08:41:22 Notes:1 brother - No Known p roblems; Medical History Condition Response Anxiety Disorder Y Allergies/Hayfever Y Other Y Obesity Y Kidney Stones [...] completed El[place] [facility] & [place] 09/27/2023 08:17:50 COVID-19, mRNA, LNP-S, PF, 100 mcg/0.5mL dose or 50 mcg/0.25mL dose 1 completed Ela Castillo [place] & [place] 09/27/2023 08:17:41 COVID-19, mRNA, LNP-S, PF, 100 mcg/0.5mL dose or 50 mcg/0.25mL dose 1 completed Ela Castillo [place] & [place] 09/27/2023 08:17:41 MMR 5 completed Ela Castillo null, [place] - [facility] [facility] & [place] 04/03/2024 10:18:10 MMR 5 completed Ela Cast[place] [facility] & [place] 04/03/2024 10:18:10 RSV, bivalent, protein subunit RSVpreF, diluent reconstituted, 0.5 mL, PF 4 completed Ela Castillo [place], [place] [facility] & [place] 04/03/2024 10:18:10 Tdap 3 completed Ela carcamo, [place] [facility] [facility] & [place] 04/03/2024 10:18:10 varicella 5 completed Ela Castillo [place] [facility] & [place] 04/03/2024 10:18:10 Hep B, adult 5 completed Ela [place] [facility] & [place] 04/03/2024 10:18:10 Influenza, split virus, quadrivalent, PF 3 completed Ela Cast[place] [facility] & [place] 04/03/2024 10:18:10 Rho(D) - Unspecified formulation 7 completed TREE [place] - [place] & [place] 01/21/2025 11:54:59 Rho(D) - Unspecified formulation 3 completed TREE [place] - [place] & [place] 01/21/2025 11:59:29 Past Encounters Encounter ID Performer Location Encounter Start Date Encounter Closed Date Diagnosis/Indication Diagnosis SNOMED-CT Code Diagnosis ICD10 Code Diagnosis IMO Codes Diagnosis Note [id number] Nadia Drummond MD [address] [place] [address] 07/21/2022 13:18:28 07/21/2022 14:14:50 Morbid obesity 345951061 E66.01 Vitamin D deficiency 347 68504 E55.9 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 [id number] Shemar Denton DO [facility] Adv [facility] [address] [facility] [address] [place] [address] 08/31/2022 07:59:30 08/31/2022 13:37:08 Morbid obesity 905803738 E66.01 Pre-surger y evaluation 257999422 Z01.818 Postoperative pain 70043 9007 G89.18 Polycystic ovary syndrome 095727995 E28.2 [id number] Angelito Estrada DNP, RADIOLOGY MANAGER, BRANCH LEAD-C [facility] Bariat[facility] and Adv Surg [address] [facility] [address] [place] [address] 09/27/2022 08:10:32 09/27/2022 11:44:36 Polycystic ovary syndrome 601826032 E28.2 Vitamin D deficiency 347 01469 E55.9 Hypothyroidism 34433019 E03.9 [id number] Nadia Drummond MD [address] [facility] [place] [address] 10/03/2022 13:00:09 10/03/2022 13:22:35 Upper respiratory infection 40932071 J06.9 History of bariatric surgical procedure 575973656 Z98.84 Anxiety 70437735 F41.9 Mood disorder 73985052 F 39 [id number] Cecilia Bowman DNP, BRANCH LEAD-C, RADIOLOGY MANAGER [facility] [address] [place] [address] 10/05/2022 16:13:19 10/05/2022 17:31:36 Pain in throat 873463061 R07.0 Upper resp iratory infection 71547124 J06.9 [id number] Angelito Estrada DNP, DUONG, BRANCH LEADOmar [facility] n Bariatric s and Adv Surg [address] [place] [address] [address] [place] [address] 10/18/2022 11:38:25 10/18/2022 12:04:21 History of bariatric surgical procedure 550649914 Z98.84 History of gastrectomy 833863446 Z90.3 Patient is status post bariatric surgery and at increased risk for vitamin deficienci es and malnutriti on. Bariatric vitamin panel ordered today. Patient will be contacted to correct any vitamin deficienci es. Polycystic ovary syndrome 959208674 E28.2 Vitamin D deficiency 347 05856 E55.9 Acquired hypothyroidism 372098528 E03.9 Essential hypertension 95478411 I10 Hypothyroidism 93984889 E03.9 Mixed hyperlipidemia 267 083366 E78.2 Morbid obesity 704643682 E66.01 Intentiona l weight loss 256264286 R63.8 [id number] Angelito Estrada DNP, APRN, BRANCH LEADOmar [facility] n Bariatric s and Adv Surg [address] [place] [address] [address] [place] [address] 12/19/2022 11:38:41 12/19/2022 12:48:51 History of bariatric surgical procedure 144600433 Z98.84 History of gastrectomy 504134630 Z90.3 Patient is status post bariatric surgery and at increased risk for vitamin deficienci es and malnutriti on. Bariatric vitamin panel ordered today. Patient will be contacted to correct any vitamin deficienci es. Polycystic ovary syndrome 862727440 E28.2 Acquired hypothyroidism 859907326 E03.9 Essential hypertension 39655836 I10 Hypothyroidism 43702589 E03.9 Intentiona l weight loss 282015695 R63.8 Mixed hyperlipidemia 267 484679 E78.2 Morbid obesity 591869733 E66.01 [id number] Angelito Estrada DNP, APRN, BRANCH LEADOmar [facility] [address] [facility] [place] [address] [facility] [place] [address] 03/28/2023 12:54:58 03/28/2023 13:36:10 History of bariatric surgical procedure 099046471 Z98.84 Advised qid intake 50% protein 6043-6192 calories/d y less than 100 carbs/dy Long [...] will see dietitian today. History of gastrectomy 038447311 Z90.3 Patient is status post bariatric surgery and at increased risk for vitamin deficienci es and malnutriti on. Bariatric vitamin panel ordered today. Patient will be contacted to correct any vitamin deficienci es. Heartburn 81852775 R12 Hypothyroidism 01153080 E03.9 Mixed hyperlipidemia 267 495481 E78.2 Obesity 774198356 E66.9 Vitamin D deficiency 347 25723 E55.9 Polycystic ovary syndrome 758789749 E28.2 Acquired hypothyroidism 407822267 E03.9 Essential hypertension 98692303 I10 [id number] Angelito Estrada, DNP, RADIOLOGY MANAGER, BRANCH LEAD-C [facility] Bariatric s and Adv Surg [address] [facility] [place] [address] [facility] [place] [address] 02/19/2024 10:07:23 02/19/2024 11:56:17 History of bariatric surgical procedure 926424996 Z98.84 Advised qid intake 50% protein 2153-1979 calories/d y less than 100 carbs/dy Long [...] see dietitian today. Intentiona l weight loss 883457114 R63.8 History of gastrectomy 060523964 Z90.3 Advised qid intake 50% protein 5767-9939 calories/d y (I did encourage her to [...] correct any vitamin deficienci es. Acquired hypothyroidism 470761658 E03.9 Essential hypertension 47696575 I10 Mixed hyperlipidemia 267 492994 E78.2 Fatigue 25599318 R53.[id number], LD [facility] Bariatric s and Adv Surg [address] [place] [address] [facility] [place] [address] 02/19/2024 10:49:51 02/19/2024 12:53:58 Morbid obesity 823394058 E66.01 BMI 27.1 wt loss 78.8# Dietary ma nagement surveillance 822622321 Z71.3 [id number] Nadia Drummond MD [facility] [address] [place] [address] 04/03/2024 10:13:26 04/03/2024 11:17:24 Adult health examination 285711754 Z00.00 Diabetes m ellitus screening 380461117 Z13.1 a1c WNL Hyperlipid emia screening 359210266 Z13.220 lipid panel WNL Gastroesop hageal reflux disease 309065283 K21.01 will discuss patient with bariatrics to see if EGD is an option to assess given her sx during and continued worsening reflux presently. Pt is on PPI and h2 batsheva, consider possible dose increase but will discuss case first. Iron defic iency anemia 58913332 D50.9 she may tolerate ritual post- vitamins and will give these a try and she will give me an update Renal mass 283089651 N28 .89 CT from [facility] reviewed, was reviewed and closed by bariatrics discussed with pt, prefers to proceed with MRI at this time depression 58 731066 F53.0 doing well on sertraline [id number] Angelito Estrada, DNP, RADIOLOGY MANAGER, BRANCH LEAD-C [facility] Bariatric s and Adv Surg [address] [place] [address] 01/09/2025 13:18:37 01/09/2025 14:17:30 History of bariatric surgical procedure 057082859 Z98.84 Advised qid intake 50% protein 0552-7912 calories/d y less than 100 carbs/dyLo ng [...] I did michael. Intentiona l weight loss 160594077 R63.8 History of gastrectomy 041392143 Z90.3 Advised qid intake 50% protein 7554-9280 calories/d y less than 100 carbs/dyLo ng [...] to correct any vitamin deficienci es. At [facility] risk of nutritional deficit 093322490 Z91.89 Acquired hypothyroidism 860653477 E03.9 Essential hypertension 69012695 I10 Mixed hyperlipidemia 267 063035 E78.2 Heartburn 01805317 R12 We will follow-up in 1 month regarding symptom management . If symptoms persist will plan on getting at least upper GI with possible EGD with dilatation . Obesity 766977984 E66.9 we will follow up in 1 month. As long as she is doing well with no symptoms we will increase to 5 mg weekly. Patient was given realistic expectatio ns regarding medication regimen. [id number] Angelito Estrada, DNP, RADIOLOGY MANAGER, BRANCH LEAD-C [facility] Bariatric s and Adv Surg [address] [facility] [place] [address] [facility] [place] [address] 02/06/2025 14:54:48 02/06/2025 15:04:46 History of bariatric surgical procedure 938233106 Z98.84 393633 Advised qid intake 50% protein 4417-0286 calories/d y less than 100 carbs/dy Intentiona l weight loss 290825512 R63.8 History of gastrectomy 541269987 Z90.3 Advised qid intake 50% protein 7371-6576 calories/d y less than 100 carbs/dy At [facility] risk of nutritional deficit 651885977 Z91.89 Acquired hypothyroidism 585801168 E03.9 Essential hypertension 02404489 I10 Mixed hyperlipidemia 267 466734 E78.2 Obesity 910153336 E66.9 we will follow up in 1 [...] smartphone . Provider (Angelito Estrada, MATTHEW, DUONG, BRANCH LEAD-C) location was [facility] [address] [place] [address], [address] in [place], [place]. Patient location: her workplace Patient gave [...] of hand washing and social distancing . [id number] Angelito Estrada, MATTHEW, DUONG, BRANCH LEAD-C [facility] Bariatric s and Adv Surg [address] [facility] [place] [address] [place] [address] 03/06/2025 13:51:19 03/06/2025 14:15:10 History of bariatric surgical procedure 726752802 Z98.84 093486 Advised qid intake 50% protein 6262-2492 calories/d y less than 100 carbs/dyTo days visit was performed with AUDIO ONLY per patient request. Patient could not be seen utilizing audio/vide o or in person due to patient being in [place], [place], thus this visit was performed at patients request. Reason visit was not performed by video is due to patient not having access to smartphone . Provider (Angelito Estrada DNP, DUONG, BRANCH LEAD-C) location was [facility] [address] [place] [address], [address] in [place]. Patient location: work. Patient gave informed [...] social distancing . Intentiona l weight loss 283397760 R63.8 History of gastrectomy 538254309 Z90.3 Advised qid intake 50% protein 5684-0217 calories/d y less than 100 carbs/dy Follow-up with Repeat SILVIA in 3mth suggested .. At [facility] risk of nutritional deficit 491811080 Z91.89 Acquired hypothyroidism 378436119 E03.9 Obesity 205634638 E66.9 we will follow up in 1 month. I will increase to 7.5 mg weekly. Patient was given realistic expectatio ns regarding medication regimen. [id number] Angelito Estrada, MATTHEW, DUONG, BRANCH LEAD-C [facility] Bariatric s and Adv Surg [address] [facility] [place] [address] [place] [address] 04/04/2025 09:10:59 04/04/2025 10:05:21 History of bariatric surgical procedure 596734344 Z98.84 [id number] Advised qid intake 50% protein 6699-4470 calories/d y less than 100 carbs/dyTo days visit was performed with AUDIO ONLY per patient request. Patient could not be seen utilizing audio/vide o or in person due to patient being in [place], thus this visit was performed at patients request. Reason visit was not performed by video is due to patient not having access to smartphone . Provider (Angelito Estrada, DNP, RADIOLOGY MANAGER, BRANCH LEAD-C) location was [facility] [address] [place] [address], [address] in [place]. Patient location: work. Patient gave informed [...] hand washing and social distancing . Obesity 806342945 E66.9 we will follow up in 1 month. I will increase to 10 mg weekly. Patient was given realistic expectatio ns regarding medication regimen. Nausea 480530350 R11.0 Health Concerns Section Related Observation LastModified by Organization Detai ls LastModified Time None Recorded Concern Status LastModified by Organization Details LastModified Time None Recorded Advance Directives Directive N: Payers Insurance Date Sequence Insurance Name Policy Number Policy Wilson Covered Member ID Wilson Member ID Guarantor Name 07/30/2019 1 [place] [id number] Jeremiah B Deal [id number] PamNaHere Deal 05/02/2025 1 [place] [id number] Omkar Gallego Deal [id number] Pam Yeni Deal 01/24/2022 2 [facility] [place] Pam B Deal [id number] Pam Yeni Deal 04/08/2021 2 MEDICAID-[facility] CHOICES - FFS/TRADITIONA L Pam Newell Deal [id number] Pam Jaime Deal Notes Date Note Type Note Provider Name and Address Organization Details Recorded Time 04/03/2024 text/html ROS as noted in the HPI Patient is here for yearly check up [...] on current dose of zoloft managed by scooping machine tender. Safety: pt wears seat belt, has smoke [...] 10.4. She had a CT ab/pelvis at [facility] on 02/16 that showed a possible area of the left kidney that radiology recommended further imaging, MRI or US. Pt would like to proceed with MRI. Nadia Drummond MD [address], [place], [address], [facility] - [place] & [place] 04/03/2024 13:07:35 01/09/2025 text/html ROS as noted in the HPI Patient presents the office today for routine [...] = 1468 kilo calories Angelito Estrada, DNP, RADIOLOGY MANAGER, BRANCH LEAD-C [address] [facility], [place], [address], [place] - [facility] - [place] & [place] 01/09/2025 14:21:06 02/06/2025 text/html ROS as noted in the HPI Patient presents the office today via telehealth [...] a telehealth appt Angelito Estrada DNP, APRN, BRANCH LEAD-C [address] [place], [address], [facility] & [place] 02/06/2025 15:12:51 03/06/2025 text/html ROS as noted in the HPI Patient presents the office today via telehealth [...] a telehealth appt Angelito Estrada DNP, APRN, BRANCH LEAD-C [address] [place], [address], [facility] & [place] 03/06/2025 14:12:43 04/04/2025 text/html ROS as noted in the HPI Patient presents the office today via telehealth [...] being a telehealth visit Angelito Estrada DNP, RADIOLOGY MANAGER, BRANCH LEAD-C [address], [place], [address], [facility] - [place] & [place] 04/04/2025 09:27:21 OBGyn Episode No OBEpisode recorded.
[2025-09-09 18:26] LABS: Microscopic, Urine URINE MICROSCOPIC (MICROSCOPIC)
[2025-09-09 18:30] LABS: Bilirubin,Urine Negative (Negative); Color,Urine YELLOW (Yellow); Glucose,Urine (UA) Negative (Negative); Ketones,Urine 1+ (Negative); Leukocyte Esterase,Urine Negative (Negative); PH,Urine 7.0 (5.0-8.5); Protein,Urine Negative (Negative); Specific Gravity, Urine 1.020 (1.005-1.030); Urobilinogen,Urine 0.2 EU/dl (0.2)
[2025-09-09 18:55] LABS: Hematocrit 29.3 % (37.0-47.0); Hemoglobin 9.0 g/dL (12.2-16.2); Immature Granulocytes % 0.4 %; Mean Corpuscular HGB Conc 30.7 g/dL (31.8-35.4); Mean Corpuscular Hemoglobin 21.4 pg (27.0-31.2); Mean Corpuscular Volume 69.8 fl (81-99); Nucleated Red Blood Cells % 0 %; Platelet Count 218 K/mm3 (142-424); Red Blood Count 4.20 M/mm3 (4.20-5.40); Red Cell Distribution Width-SD 36.3 fL; White Blood Count 8.1 K/mm3 (4.8-10.8)
[2025-09-09] MEDS: 0.9 % SODIUM CHLORIDE 1000ML 1,000 ML 999 ML IV (18:56)
[2025-09-09 19:00] VITALS: BP 118/74; PULSE 85; O2SAT 100
[2025-09-09 19:11] LABS: Alanine Aminotransferase 12 U/L (12-78); Albumin Level 4.0 g/dl (3.5-5.0); Albumin/Globulin Ratio 1.2 (1.1-1.8); Alkaline Phosphatase 82 U/L (38-126); Anion Gap 10.4 mEq/L (5-15); Aspartate Amino Transferase 21 U/L (14-36); Bilirubin,Total 0.4 mg/dl (0.2-1.3); Blood Urea Nitrogen 5 mg/dl (7-17); Calcium 8.6 mg/dl (8.4-10.2); Carbon Dioxide 22 mmol/L (22.0-30.0); Chloride 103 mmol/L (98-107); Creatinine Clearance Estimated 140 mL/min (50-200); Creatinine,Serum 0.60 mg/dl (0.52-1.04); Estimated Glomerular Filt Rate 116 ml/min (>60); GFR (African American) 140 ML/MIN (>60); Globulin 3.4 g/dL (1.3-3.2); Glucose 119 mg/dl (74-100); Magnesium 1.6 mg/dl (1.6-2.3); Potassium 3.4 mmoL/L (3.5-5.1); Sodium 132 mmol/L (136-145); Total Protein,Serum 7.4 g/dl (6.3-8.2)
[2025-09-09 19:18] LABS: Amorphous Sediment,Urine 3+ /lpf; Bacteria,Urine 2+ /lpf; Mucus,Urine 1+ /lpf; RBC,Urine Occasional #/hpf (0-3); WBC,Urine Occasional #/hpf (0-3)
[2025-09-09 20:17] VITALS: BP 120/76; PULSE 80; RESP 16; TEMP 36.9; O2SAT 100
== END 2025-09-09 20:18 | disposition home or self-care (01) ==
PROVIDERS: Emergency Provider Student in an Organized Health Care Education/Training Program; PCP Family Medicine
DX: O26.892 Other specified pregnancy related conditions, second trimester (principal); R10.A3 Flank pain, bilateral; E87.6 Hypokalemia; E87.1 Hypo-osmolality and hyponatremia; R30.0 Dysuria; Z3A.14 14 weeks gestation of pregnancy
CPT/HCPCS: 80053; 81001; 83735; 85025; 87086; 96360; 99284; 99285; J7030

== ENCOUNTER 2025-09-10 14:57 | Outpatient (CLI) | payer BC, SELFPAY ==
--- OUTSIDE RECORDS SUMMARY | 2021-05-03 11:23 | XMS_ITS | Encounter Summary ---
[facility] Address [address] [place] [address] Care Team Providers Care House Supervisor Name Role Phone Nadia Drummond MD Primary Care Provider [phone] Reason for Visit * Diagnostic Imaging (Routine) - Closed Specialty Diagnoses / Procedures Referred By Contac t Referred To Contact Radiology Diagnoses Hypothyroidism, unspecified type Procedures US Thyroid Cheri Harden DO [address] [place] [address] Phone: tel: fax: [facility] [address] [place] [address] Phone: tel: fax: Referral ID Status Reason Start Date Expiration Date Visits Re quested Visits Authorized [id number] Closed 05/03/2021 05/03/2022 1 1 Encounter Details Date Type Department Care Team (Late st Contact Info) Description 05/03/2021 12:23 PM EDT Hospital Encounter [facility] [address] [place] [address] Social History Tobacco Use Types Packs/Day Years Used Date Smoking Tobacco: Never Passive Smoke Exposure: Never Smokeless Tobacco: Never Alcohol Use Standard Drinks/Week Comments Not Currently 0 (1 standard drink = 0.6 oz pur e alcohol) Estimated Date of Delivery Comme nts Yes 03/09/2026 Sex and Gender Information Value Date Recorded Sex Assigned at Female 07/28/2025 9:49 AM EDT Legal Sex Female 1:49 PM EDT Gender Identity Not on file Sexual Orientation Not on file documented as of this encounter Plan of Treatment Upcoming Encounters Date Type Department Care Team (Late st Contact Info) Description 11/03/2025 10:30 AM EST Office Visit [facility] [address] [facility] [address] [place] [address] Cheri Harden, [address] [facility] [address] [place] [address] documented as of this encounter Procedures Procedure Name Priority Date/Time Associated Diagnosis Comments US THYROID Routine 05/03/2021 12:23 PM EDT Hypothyroidism, unspecified type documented in this encounter Results * US Thyroid (05/03/2021 12:23 PM EDT) Narrative SYSTEMGENERATED, DOCUMENTATION - 05/03/2021 12:23 PM EDT Please see performing physician's note for result. us Cheri Harden DO IMG US ORDERABLES Final R esult documented in this encounter Visit Diagnoses Not on filedocumented in this encounter Additional Health Concerns Infection Onset Date Last Indicated Resolved Time COVID Screen (preop/placement) 02/15/2022 02/15/2022 12/28/2023 12:11 PM EST documented as of this encounter Care Teams House Supervisor Relationship Specialty Start Date End Date Nadia Drummond MD PCP - General Family Medicine 07/15/20 documented as of this encounter
--- OUTSIDE RECORDS SUMMARY | 2022-10-13 09:42 | XMS_ITS | Encounter Summary ---
Author Organization [facility] Address [address] [place] [address] Care Team Providers Care Licensed Dispensing Optician Name Role Phone Nadia Drummond MD Primary Care Provider [phone] Reason for Visit * Diagnostic Imaging (Routine) - Closed Specialty Diagnoses / Procedures Referred By Idalia caruso Referred To Contact Radiology Diagnoses Solitary thyroid nodule Procedures US Thyroid Cheri Harden DO 3084 [facility] [address] [address] [place] [address] Phone: tel: fax: Referral ID Status Reason Start Date Expiration Date Visits Re quested Visits Authorized [id number] Closed 10/13/2022 10/13/2023 1 1 Encounter Details Date Type Department Care Team (Late st Contact Info) Description 10/13/2022 9:42 AM EST Hospital Encounter [facility] END[facility]CRINOLOGY 3084 [facility] [address] [place] [phone] Social History Tobacco Use Types Packs/Day [...] Description 11/03/2025 10:30 AM EST Office Visit [facility] ENDOCRINOLOGY 3084 [facility] [address] [place] [address] Cheri Harden, DO [address] [address] documented as of this encounter Procedures Procedure [...] documented as of this encounter Care Teams Licensed Dispensing Optician Relationship Specialty Start Date End Date Nadia Drummond MD PCP - General Family Medicine 07/15/20 documented as of this encounter
--- OUTSIDE RECORDS SUMMARY | 2025-07-28 10:15 | XMS_ITS | Encounter Summary ---
Author Organization [facility] Address [address] [place] [address] Care Team Providers Care Degreaser Name Role Phone Nadia Drummond MD Primary Care Provider [phone] Reason for Visit * Reason Comments Hypothyroidism AcquiredThyroid labs scanned 07/24/2025 Thyroid Problem Solitary Thyroid Nod ule Encounter Details Date Type Department Care Team (Late st Contact Info) Description 07/28/2025 11:15 AM EDT Office Visit [facility] ENDOCRINOLOGY [address] [place] [address] Cheri Harden, [address] [place] [address] Acquired hypothyroidism (Primary Dx); Solitary thyroid nodule Social History Tobacco Use Types Packs/Day Years Used Date Smoking Tobacco: Never Passive Smoke Exposure: Never Smokeless Tobacco: Never Tobacco Cessation:Counseling Given: No Alcohol Use Standard Drinks/Week Comments Not Currently [...] Sign Reading Time Taken Comments Blood Pressure 96/64 07/28/2025 11:22 AM EDT Pulse 77 07/28/2025 11:22 AM EDT Temperature - - Respiratory Rate - - Oxygen Saturation 100% 07/28/2025 11:22 AM EDT Inhaled Oxygen Concentration - - Weight 67.4 kg (148 lb 9.6 oz) 07/28/2025 11:22 AM EDT Height 165.1 cm (5' 5 ) 07/28/2025 11:22 AM EDT Body Mass Index 24.73 07/28/2025 11:22 AM EDT documented in this encounter Progress Notes * Cheri Harden DO - 07/28/2025 11:50 AM EDTAssociated Problem(s): Solitary thyroid nodule Left mid lobe nodule 1.5 cm on last US in 2021. This is stable from prior ultrasounds. She has undergone FNA in the past x 2, both nondiagnostic in 2013. Exam stable today with no palpable nodule. Can check ultrasound after delivery. * Cheri Harden DO - 07/28/2025 11:45 AM EDTAssociated Problem(s): Hypothyroidism Previously on 50 mcg daily but ran out of the med 6 months ago. TSH last week at goal for early at 0.95. She does not need to resume levothyroxine at this time. TSH could be lower due to physiologic changes in TBG in early . Monitor with repeat labs in a month. Order printed. * Cheri Harden DO - 07/28/2025 11:15 AM EDT Chief Complaint Patient presents with Hypothyroidism Acquired Thyroid labs scanned 07/24/2025 Thyroid Problem Solitary Thyroid Nodule Pam Phillips is a 30 y.o. female had concerns including Hypothyroidism (Acquired/Thyroid labs scanned 07/24/2025) and Thyroid Problem (Solitary Thyroid Nodule/). Patient was last seen in 2022. She is currently 8 weeks . Had hyperemesis with a prior and is starting develop some nausea. She ran out of the levothyroxine 50 mcg daily about 6 months ago and feels fine. Recent TFTs are normal with TSH 0.95. The following portions of the patient's history were reviewed and updated as appropriate: allergies, current medications, past family history, past medical history, past social history, past surgicalhistory, and problem list. Review of Systems Constitutional: Negative. Gastrointestinal: Positive for nausea. Endocrine: Negative. BP 96/64 (BP Location: Left arm, Patient Position: Sitting, Cuff Size: Adult) Pulse 77 Ht 165.1cm (65 ) Wt 67.4 kg (148 lb 9.6 oz) SpO2 100% No BMI 24.73 kg/m?? Physical Exam Vitals reviewed. Constitutional: Appearance: Normal appearance. Neck: Thyroid: No thyroid mass or thyromegaly. Cardiovascular: Rate and Rhythm: Normal rate. Pulmonary: Effort: Pulmonary effort is normal. Neurological: General: No focal deficit present. Mental Status: She is alert. Mental status is at baseline. Psychiatric: Mood and Affect: Mood normal. Behavior: Behavior normal. LABS AND IMAGING CMP Lab Results Component Value Date GLUCOSE 76 02/15/2022 BUN 9 02/15/2022 CREATININE 0.76 02/15/2022 EGFRIFNONA >60 08/10/2021 EGFRIFAFRI >60 08/10/2021 BCR 12 02/15/2022 K 4.4 02/15/2022 CO2 21 02/15/2022 CALCIUM 9.2 02/15/2022 ALBUMIN 4.6 02/15/2022 AST 21 02/15/2022 ALT 22 02/15/2022 CBC w/DIFF Lab Results Component Value Date WBC 7.72 12/07/2023 RBC 3.79 (L) 12/07/2023 HGB 9.3 (L) 12/07/2023 HCT 31.0 (L) 12/07/2023 MCV 82 12/07/2023 MCH 24.5 (L) 12/07/2023 MCHC 30.0 (L) 12/07/2023 RDW 14.3 12/07/2023 RDWSD 41.7 07/15/2020 MPV 8.7 (L) 12/07/2023 PLT 260 12/07/2023 NEUTRORELPCT 66.0 07/08/2022 LYMPHORELPCT 26.0 07/08/2022 MONORELPCT 6.0 07/08/2022 EOSRELPCT 1.0 07/08/2022 BASORELPCT 0.0 07/08/2022 AUTOIGPER 1.0 07/08/2022 NEUTROABS 5.59 07/08/2022 LYMPHSABS 2.19 07/08/2022 MONOSABS 0.53 07/08/2022 EOSABS 0.12 07/08/2022 BASOSABS 0.02 07/08/2022 AUTOIGNUM 0.04 07/08/2022 NRBC 0.0 12/07/2023 TSH Lab Results Component Value Date TSH 3.670 09/13/2023 TSH 1.440 10/13/2022 TSH 2.550 02/15/2022 T4 Lab Results Component Value Date FREET4 1.2 04/17/2025 FREET4 1.03 09/13/2023 FREET4 1.32 10/13/2022 07/24/25 TSH 0.85, free T4 9.4 Ultrasound report [facility] showed the left nodule measuring 1.4 x 0.8 x 0.7 cm. FNA from 09/04/2014 showed the nodule measured 1.3 cm was predominantly colloid with rare follicular groups, technically nondiagnostic FNA due to the paucity of follicular groups. Prior FNA at from 05/16/2014 was also nondiagnostic with colloid and rare follicular groups. Thyroid Ultrasound 10/13/22 Indication: Thyroid nodule Comparison Imaging: Record of FNA from 2013 ultrasound report from 2019, ultrasound 2020 Clinical History: Hypothyroidism, left thyroid nodule with 2 nondiagnostic FNAs in 2013, consistentwith colloid and rare follicular groups Real time high resolution imaging of the thyroid gland was performed in transverse and longitudinalplanes. Previous imaging reports were reviewed if available and compared to the current to assess stability. Lobes: The right lobe measured 5.1 cm L x 1.5 cm AP x 2.2 cm in TV dimension. The isthmus measured 0.4 cm in thickness. The left thyroid lobe measured 4.8 cm L x 1.3 cm AP x 1.5 cm in TV dimension. Thyroid gland is heterogeneous and contains single left lobe nodule. Nodule 1 located in the left mid medial lobe and measures 1.4 x 0.8 x 0.7 cm (L X AP X TV). This nodule is solid, homogeneous, hypoechoic with well-defined margins, and Grade I vascularity on Color Flow Doppler. It has no artifacts. Unchanged in size and appearance since ultrasound 2020 No pathologic lymph nodes were seen. Yet Impression: Stable left lobe nodule measuring 1.4 cm. This nodule is unchanged in size since 2014. Unchanged inappearance since 2020. History of two nondiagnostic FNAs that were consistent with predominant colloid, rare follicular groups. Suspect predominantly colloid nodule. Recommendation: Due to stability and nodule over the last 8 years and reassuring FNA x 2 in 2013, can d/c routine ultrasound monitoring. Assessment and Plan Diagnoses and all orders for this visit: 1. Acquired hypothyroidism (Primary) Assessment & Plan: Previously on 50 mcg daily but ran out of the med 6 months ago. TSH last week at goal for early at 0.95. She does not need to resume levothyroxine at this time. TSH could be lower due to physiologic changes in TBG in early . Monitor with repeat labs in a month. Order printed. Orders: - T4; Future - TSH; Future 2. Solitary thyroid nodule Assessment & Plan: Left mid lobe nodule 1.5 cm on last US in 2021. This is stable from prior ultrasounds. She has undergone FNA in the past x 2, both nondiagnostic in 2014. Exam stable today with no palpable nodule. Can check ultrasound after delivery. Return in about 3 months (around 10/27/2025) for next scheduled follow up - 15 min video visit is OK. The patient was instructed to contact the clinic with any interval questions or concerns. Electronically signed by: Cheri Harden DO Carbon Sequestration Plant Operator Please note that portions of this note were completed with a voice recognition program. documented in this encounter Plan of Treatment Upcoming Encounters Date Type Department Care Team (Late st Contact Info) Description 11/03/2025 10:30 AM EST Office Visit [facility] ENDOCRINOLOGY [address] [address] Cheri Harden DO [address] [facility] [address] [place] [address] Scheduled Orders Name Type Priority Associated Diagnoses Orde r Schedule T4 Lab Routine Acquired hypothyroidism Expected: 08/27/2025 (Approximate), Expires: 10/27/2026 TSH Lab Routine Acquired hypothyroidism Expected: 08/27/2025 (Approximate), Expires: 10/27/2026 documented as of this encounter Visit Diagnoses Diagnosis Acquired hypothyroidism- Primary Unspecified hypothyroidism Solitary thyroid nodule documented in this encounter Care Teams Degreaser Relationship Specialty Start Date End Date Nadia Drummond MD PCP - General Family Medicine 07/15/20 documented as of this encounter
--- OUTSIDE RECORDS SUMMARY | 2025-09-10 14:59 | XMS_ITS | Clinical Summary ---
Author Organization [facility] Address [address] [place] [address] Care Team Providers Care Table Assembler Name Role Phone Nadia Goodson MD Primary Care Provider [phone] Allergies Active Allergy Reactions Criticality Noted Date [...] Recorded Patient Health Questionnaire-2 Score 0 04/08/2025 [place] Depression Scale Answer Date Recorded [place] Depression Scale Total 0 02/23/2024 The thought [...] Visit Obstetrics & Gynecology [address] [place] [address] Tres Ybarra MD [address] [place] [address] Health Maintenance Due Date Last Done Comments [facility]-/Child/Adol SDOH Screenings 1993 [facility]- SDOH Screenings 2011 [facility]-Adult SDOH Screenings 2011 [facility]-Hepatitis B Vaccines (1 of 3 - 19+ 3-dose series) 2012 [facility]-Varicella Vaccines (2 of 2 - 13+ 2-dose series) 05/27/2015 04/29/2015 HPV Vaccines (1 - 3-dose SCDM series) 2020 RCT-EZHRF-31 Vaccine (3 - Moderna risk series) 01/06/2021 [...] Pap, Source Cx/Vagina 02/13/2025 12:50 PM EDT [facility] (Android App Review Source) EER Referred ThinPrep Pap and HPV See Note 02/13/2025 12:50 PM EDT [facility] (Android App Review Source) PAP, THINPREP Normal 02/13/2025 12:50 PM EDT [facility] (Android App Review Source) High Risk HPV Normal 02/13/2025 12:50 PM EDT [facility] (Android App Review Source) Swab Vaginal and cervical cytologic material / Unknown Non-blood Collection / Unknown 02/06/2025 8:23 AM EDT 02/06/2025 12:54 PM EDT Narrative [facility] (Android App Review Source) - 02/13/2025 12:50 PM EDT Authorized individuals can access the [employer] Enhanced Report with an [employer] Connect account using the following link. Your local lab can assist you in obtaining the patient report if you don't have a Connect account. [email or web address] Performed By: [facility] [address] [place] [id number] Data Analyst: Thompson Correa MD, PhD CLIA Number: [id number] SPECIMEN PART A. Cervical, Endocervical, Vaginal, ThinPrep Pap (Manganese Wheeler) CYTOLOGY HX Date of Last Menstrual Period: N FINAL DIAGNOSIS INTERPRETATION: Negative for Intraepithelial Lesion or Malignancy. SPECIMEN ADEQUACY:Satisfactory for evaluation. Endocervical/transformation zone component present. Electronically Signed Out : [email or web address] Performed by: [facility] [address] [place] [address] [place] [address] Desire Alvarez MD, HR-HPV: Negative Test performed by the FDA-approved Hologic (Gen-Probe) APTIMA HPV test, which detects HPV genotypes: 16, 18, 31, 33, 35, 39, 45, 51, 52, 56, 58, 59, 66, and 68. This assay has been cleared for the specimen types listed below. Other specimen types have not been validated for this assay. -Clinician-collected ThinPrep Pap specimens. Performed by: [facility] [address] [place] [address] [place] [address] Desire Alvarez MD, Tres Ybarra MD LAB REF LAB BLOOD AND FLUID ORD Final Result [facility] ([facility]) [address] [phone] * HIV 1 & 2 Antibody/Antigen Screen (05/29/2023 10:20 AM EDT) HIV 1 & 2 Antibody/Antigen Screen Non Reactive Non Reactive 05/29/2023 2:06 PM EDT [facility] Comment:Screening for HIV 1 & 2 antibodies, and P24 antigen is NONREACTIVE. No confirmatory testing is required. Blood Venous blood specimen / Unknown Venipuncture / Unknown 05/29/2023 10:20 AM EDT 05/29/2023 1:01 PM EDT Result Mary Ybarra MD LAB BLOOD ORDERABLES Final Resu lt Performing Organization Address City/[facility]/ZIP Co de Phone Number [facility] [address] [place] [address] * Hepatitis C Antibody (05/29/2023 10:20 AM EDT) Hepatitis C Antibody Negative Negative 05/29/2023 2:02 PM EDT [facility] Blood Venous blood specimen / Unknown Venipuncture / Unknown 05/29/2023 10:20 AM EDT 05/29/2023 1:01 PM EDT Result Mary Ybarra MD LAB BLOOD ORDERABLES Final Resu lt Performing Organization Address City/[facility] Co de Phone Number [facility] [address] [place] [address] from Last 3 Months or Most Recently Relevant to Health Maintenance Insurance [facility] Advance Directives * Full Code (Latest Code Status on File) Date Activated Date Inactivated Comments 08/09/2021 8:28 PM 08/10/2021 1:42 PM Question Answer Comments Patient has decision-making capacity? Yes * Full Code Date Activated Date Inactivated Comments 08/08/2021 3:47 AM 08/09/2021 12:51 AM Question Answer Comments Patient has decision-making capacity? Yes Care Teams Table Assembler Relationship Specialty Start Date End Date Nadia Goodson MD [address] [place] [address] PCP - General 01/17/23
--- NOTE | 2025-09-10 15:00 | US_ITS ---
FINAL REPORT TECHNIQUE: Sonographic images of the kidneys and retroperitoneum were obtained in the longitudinal and transverse planes. CLINICAL HISTORY: R10.A0 - Flank pain, unspecified side-- more lt side-- 14 wks preg FINDINGS: The right kidney measures 10.8 cm in sqbb-ws-pyaj length. No hydronephrosis. Lower pole cyst measuring 2.3 cm. No stone. Cortical echogenicity and thickness are normal. The left kidney measures 10.9 cm in thio-me-ltxt length. No hydronephrosis, mass, or stone. Cortical echogenicity and thickness are normal. Limited evaluation of the spleen and liver demonstrate no acute abnormality. IMPRESSION: Right renal cyst. Reviewed, Interpreted and Dictated by Najma Carpio MD Transcribed by Magaly Damon Authenticated and [facility]
--- OUTSIDE RECORDS SUMMARY | 2025-09-10 15:00 | XMS_ITS | Encounter Summary ---
Author Organization [employer] ([place], [place], [place], [place], [place]) Address [address] [place] [address] Care Team Providers Care Hat Brusher Machine Name Role Phone Unavailable Primary Care Provider Unavailabl e Encounter Details Date Type Department Care Team (Late st Contact Info) Description 11/25/2020 Transcribed Document [facility] [place] Family Medicine [address] [place] [address] ProviderLeón MD [address] [place] [address] Social History Tobacco Use Types [...] - León ProviderMD - 11/25/2020 10:52 AM QUANTITATIVE CONSULTANT ED Triage Entered On: 11/25/2020 11:06 EST Performed On: 11/25/2020 11:03 EST by ALBERTO CHAVES RN ED Triage Across the Room Chief Complaint : pt states NAGY for last 2 days, worst NAGY of life, pressure in back of head, no other symptoms noted, Triage Date/Time : 11/25/2020 11:03 EST ALBERTO CHAVES RN - 11/25/2020 11:03 EST DCP GENERIC CODE Tracking Acuity : 3 - Urgent Tracking Group : [facility] ED ALBERTO CHAVES RN - 11/25/2020 [...] 11/25/2020 11:06:17 EST) Problems(Active) Asthma (SNOMED CT :366403174 ) Name of Problem: Asthma ; Recorder: RAJNI RAMIREZ RN; Confirmation: Confirmed ; Classification: Medical ; Code: [id number] ; Contributor System: [employer] ; Last Updated: 09/01/2018 18:05 EDT ; Life Cycle Date: 09/01/2018 ; Life Cycle Status: Active ; Vocabulary: SNOMED CT Hypothyroid (SNOMED CT :56138497 ) Name of Problem: Hypothyroid ; Recorder: RAJNI RAMIREZ RN; Confirmation: Confirmed ; Classification: Medical ; Code: [id number] ; Contributor System: PowerChart ; Last Updated: 09/01/2018 18:05 EDT ; Life Cycle Date: 09/01/2018 ; Life Cycle Status: Active ; Vocabulary: SNOMED CT PCOS (polycystic ovarian syndrome) (SNOMED CT :559952907 ) Name of Problem: PCOS (polycystic ovarian syndrome) ; Recorder: RAJNI RAMIREZ RN; Confirmation: Confirmed ; Classification: Medical ; Code: [id number] ; Contributor System: [employer] [facility] ; Last Updated: 09/01/2018 18:05 EDT ; Life Cycle Date: 09/01/2018 ; Life Cycle Status: Active ; Vocabulary: SNOMED CT Diagnoses(Active) Headache Date: 11/25/2020 ; Diagnosis Type: Reason For Visit ; Confirmation: Complaint of ; Clinical Dx: Headache ; Classification: Medical ; Clinical Service: Emergency medicine ; Code: PNED ; Probability: 0 ; Diagnosis Code: [id number] ED Height and Weight Height Source : Stated Height Entry Format : [place]clennan Height, Feet : 5 ft(Converted to: 152 cm, 60 Inch) Height, Inches : 5 Inch(Converted to: 0 ft 5 Inch, 12.70 cm) Clinical Height : 165.1 cm Weight Source, ED : Critical estimated dosing weight Weight Entry Format : Mclennan Weight, Pounds : 220 lb Clinical Dosing Weight : 100 kg Body Surface Area (BSA) : 2.06 m2 Body Mass Index : 36.7 kg/m2 (HI) Boomer Body Weight (IBW) : 56.59 kg ALBERTO [...]
--- OUTSIDE RECORDS SUMMARY | 2025-09-10 15:00 | XMS_ITS | Encounter Summary ---
Author Organization [employer] ([place], [place], [place], [place], [place]) Address [address] [place] [address] Care Team Providers Care Senior Medical Billing Specialist Name Role Phone Unavailable Primary Care Provider Unavailabl e Encounter Details Date Type Department Care Team (Late st Contact Info) Description 11/25/2020 Transcribed Document [facility] [place] [address] [place] [address] ProviderLeón MD [address] [place] [address] Social History Tobacco Use Types [...] - Historical ProviderMD - 11/25/2020 10:52 AM SUPERVISOR PATCHING Broset Violence Assessment Entered On: 11/25/2020 14:03 EST Performed On: 11/25/2020 14:03 EST by LALI SEAY RN Broset Violence Assessment Broset Violence Checklist of Symptoms : None Broset Violence Symptoms Subtotal : 0 Broset Violence Symptoms Indicator : Low risk (0) LALI SEAY RN - 11/25/2020 14:03 EST Electronically signed by Jimena [facility] Conversion Welder Tech Cerner at 02/19/2023 9:42 AM CDT documented in this encounter Plan of Treatment Not on file documented as of this encounter Visit Diagnoses Not on filedocumented in this encounter
--- OUTSIDE RECORDS SUMMARY | 2025-09-10 15:00 | XMS_ITS | Encounter Summary ---
[facility] Organization [facility] Address [address] [place] [id number] Care Team Providers Care Blast Setter Name Role Phone Nadia Drummond MD Primary Care Provider [phone] Encounter Details Date Type Department Care Team (Late st Contact Info) Description 07/24/2025 Telephone [facility] ENDOCRINOLOGY [address] [place] [address] Cheri Harden DO [address] [place], [place] [id number] Social History Tobacco Use Types Packs/Day Years [...] EDT TEREZA visit needed with me or CHILD DAY CARE PROVIDER/PA (this week or next). Please schedule. * [...] these labs. She had labs done at [facility]. Her OB is Dr. Marie. She would like a call back. documented in this encounter Plan of Treatment Upcoming Encounters Date Type Department Care Team (Late st Contact Info) Description 11/03/2025 10:30 AM EST Office Visit [facility] ENDOCRINOLOGY [address] [address] Cheri Harden, DO [address] [address] documented as of this encounter Visit Diagnoses Not on filedocumented in this encounter Care Teams Blast Setter Relationship Specialty Start Date End Date Nadia Drummond MD PCP - General Family Medicine 07/15/20 documented as of this encounter
--- OUTSIDE RECORDS SUMMARY | 2025-09-10 15:00 | XMS_ITS | Encounter Summary ---
Author Organization [employer] ([place], [place], [place], [place], [place]) Address [address] [place] [address] Care Team Providers Care Shrinker Name Role Phone Unavailable Primary Care Provider Unavailabl e Encounter Details Date Type Department Care Team (Late st Contact Info) Description 09/26/2019 Transcribed Document [facility] [place] [address] [place] [address] ProviderLeón MD [address] [place] [address] Social History Tobacco Use Types [...] - Historical ProviderMD - 09/26/2019 11:00 AM MECHANICAL PROJECT MANAGER Urine Culture Collected: 09/24/2019 Complete Body site: Specimen Type: U CleanCatch 09/26/2019 09:56 09/26/2019 11:00 (KINGSLEY MEJIA PA-C) Reviewed by Provider, No further action required 3 or more organisms suggesting contamination documented in this encounter Plan of Treatment Not on file documented as of this encounter Visit Diagnoses Not on filedocumented in this encounter
--- OUTSIDE RECORDS SUMMARY | 2025-09-10 15:00 | XMS_ITS | Encounter Summary ---
Author Organization [employer] ([place], [place], [place], [place], [place]) Address [address] [place] [address] Care Team Providers Care Assistant Pastry Chef Name Role Phone Unavailable Primary Care Provider Unavailabl e Encounter Details Date Type Department Care Team (Late st Contact Info) Description 09/24/2019 Transcribed Document [facility] [place] [address] [place] [address] ProviderLeón MD [address] [place], [...] - Historical ProviderMD - 09/24/2019 5:36 AM IS PROJECT MANAGER [place] Suicide Severity Rating Scale (C-SSRS) Entered On: 09/24/2019 6:25 EST Performed On: 09/24/2019 6:24 EST by RENETTA NIXON RN [place] Suicide Severity Rating Scale (C-SSRS) CSSRS Past [...]
--- OUTSIDE RECORDS SUMMARY | 2025-09-10 15:00 | XMS_ITS | Encounter Summary ---
Author Organization [employer] ([place], [place], [place], [place], [place]) Address [address] [place] [address] Care Team Providers Care Search Coordinator Name Role Phone Unavailable Primary Care Provider Unavailabl e Encounter Details Date Type Department Care Team (Late st Contact Info) Description 11/25/2020 Transcribed Document [facility] [place] [address] [place] [address] ProviderLeón MD [address] [place] [address] Social History Tobacco Use Types [...] - León ProviderMD - 11/25/2020 4:27 PM TUNNEL INSPECTOR ED Discharge Entered On: 11/25/2020 16:27 EST [...] 11/25/2020 16:27 EST Electronically signed by Jimena [facility] Conversion Diesel Instructor Cerner at 02/19/2023 9:39 AM CDT documented in this encounter Plan of Treatment Not on file documented as of this encounter Visit Diagnoses Not on filedocumented in this encounter
--- OUTSIDE RECORDS SUMMARY | 2025-09-10 15:00 | XMS_ITS | Clinical Summary ---
Author Organization [employer] ([place], [place], [place], [place], [place]) Address [address] [place] [address] Care Team Providers Care Hand Coper Name Role Phone Unavailable Primary Care Provider [...]
--- OUTSIDE RECORDS SUMMARY | 2025-09-10 15:00 | XMS_ITS | Encounter Summary ---
Author Organization [employer] ([place], [place], [place], [place], [place]) Address [address] [place] [address] Care Team Providers Care Cma Name Role Phone Unavailable Primary Care Provider Unavailabl e Encounter Details Date Type Department Care Team (Late st Contact Info) Description 11/25/2020 Transcribed Document [facility] [place] [address] [place] [address] ProviderLeón MD [address] [place] [address] Social History Tobacco Use Types [...] - Historical ProviderMD - 11/25/2020 10:52 AM DATA SYSTEMS ANALYST [place] Suicide Severity Rating Scale (C-SSRS) Entered On: 11/25/2020 14:40 EST Performed On: 11/25/2020 14:40 EST by LALI SEAY RN [place] Suicide Severity Rating Scale (C-SSRS) CSSRS Past [...]
--- OUTSIDE RECORDS SUMMARY | 2025-09-10 15:00 | XMS_ITS | Encounter Summary ---
Author Organization [employer] ([place], [place], [place], [place], [place]) Address [address] [place] [address] Care Team Providers Care Candy Waffle Assembler Name Role Phone Unavailable Primary Care Provider Unavailabl e Encounter Details Date Type Department Care Team (Late st Contact Info) Description 09/24/2019 Transcribed Document [facility] [place] [address] [place] [address] ProviderLeón MD [address] [place] [address] Social History Tobacco Use Types [...] León Joseph MD - 09/24/2019 10:05 [place] [address] PAM FENG :1995 Visit Time:09/24/2019 Your Visit [...] bleeding, fever and or persistent vomiting. Where: [address] [facility] [address] [place] [address]- Business (1) Allergies amoxicillin (C/O - vomiting) Immunizations [...] range between ( 1.0 and 7.0 ) [place] #: 0.60 K/uL -- Normal range between ( 0.24 and 0.82 ) Eos #: 0.32 K/uL -- Normal range between ( 0.04 and 0.54 ) [place] %: 7.9 % -- Normal range between [...] ) Urine Bilirubin Dipstick: Negative Urine Specific [place]: 1.007 -- Normal range between ( 1.005 [...] 10/23/2006 Document Revised: 11/24/2017 Document Reviewed: 11/24/2017 [employer] Interactive Patient Education ?? 2019 [employer]. Emergency Awareness and Preventative Care STROKE is [...] Assistance with quitting is available by contacting 1-728-ZZIR-NOW. This is a free resource providing counseling, [...] was given the opportunity to ask questions. Patient/Project Design Engineer Name: Patient/Project Design Engineer Signature: Relationship to Patient: Clinician/Hospital Project Design Engineer Signature: Please Provide a Telephone Number Where You Can Be Reached: Is it Permissible To Leave a Message? Date: Electronically signed by Jimena, [facility] Conversion Barbed Wire Machine Operator Kimberly at 02/19/2023 9:54 AM CDT documented in this encounter Plan of Treatment Not on file documented as of this encounter Visit Diagnoses Not on filedocumented in this encounter
--- OUTSIDE RECORDS SUMMARY | 2025-09-10 15:00 | XMS_ITS | Encounter Summary ---
Author Organization [employer] ([place], [place], [place], [place], [place]) Address [address] [place] [address] Care Team Providers Care Computer Networker Name Role Phone Unavailable Primary Care Provider Unavailabl e Encounter Details Date Type Department Care Team (Late st Contact Info) Description 09/24/2019 Transcribed Document [facility] [place] Family Medicine [address] [place] [address] ProviderLeón MD [address] [place] [address] Social History Tobacco Use Types [...] - Historical ProviderMD - 09/24/2019 6:15 AM QUARRY PLANT CRUSHER OPERATOR Patient: PAM FENG Age: 24 years Sex: [...] than usual; +abdominal cramping. No med taken COMPO CONVEYOR OPERATOR . History of Present Illness 24-year-old [...] started fertility medication last Monday. Patient sees investment sales assistant Chandan Lucas. Patient is with history [...] EST Height Source Stated Height Entry Format [place] Height/Length, BOLIVIAN (ft) 5 ft Height/Length BOLIVIAN 5 Inch CLINICALHEIGHT 165.1 cm [place] Body Weight 56.59 kg Weight Source, ED Standing scale Weight Entry Format [place] Weight Nauruan lb 220 lb CLINICALWEIGHT 100 kg Body [...] Triage: ED C-SSRS: ED Clinical Reconciliation: ED leather sorter: HCG Urine Qualitative: LENNY Prep: NaCl 0.9% [...] Color Red Urine Appearance Cloudy Urine Specific [place] 1.007 Urine pH Dipstick 5.5 LOW Urine [...] % 27.7 % Lymph # 2.10 K/uL [place] % 7.9 % [place] # 0.60 K/uL Eos % 4.2 % Eos # 0.32 K/uL Baso % 0.4 % Baso # 0.03 K/uL Slide Review No IG# 0 x10(3)/uL IG% 0 % PT 9.6 Second(s) INR 0.9 PTT 25.4 Second(s) Wet Prep See Result LENNY Prep See Result Specimen Type swab . Radiology results: Radiology Results (Last 48 hours) [id number] -- 09/24/2019 05:36 US Transvaginal Non Ob [...] yesterday. Rosenda Meyer MD Electronically signed by [facility] Conversion Internal Medicine Nurse Practitioner Cerner at 02/19/2023 9:58 AM CDT documented in this encounter Plan of Treatment Not on file documented as of this encounter Visit Diagnoses Not on filedocumented in this encounter
--- OUTSIDE RECORDS SUMMARY | 2025-09-10 15:00 | XMS_ITS | Encounter Summary ---
Author Organization [facility] ([place], [place], [place], [place], [place]) Address [address] [place] [address] Care Team Providers Care Roving Department Supervisor Name Role Phone Unavailable Primary Care Provider Unavailabl e Encounter Details Date Type Department Care Team (Late st Contact Info) Description 11/25/2020 Transcribed Document [facility] [place] Family Medicine [address] [place] [address] ProviderLeón MD [address] [place] [address] Social History Tobacco Use Types [...] - Historical ProviderMD - 11/25/2020 11:11 AM WIND OPERATIONS MANAGER ED POC - URINE HCG Entered On: 11/25/2020 14:40 EST Performed On: 11/25/2020 14:20 EST by LALI SEAY RN Point of Care Urine HCG HCG Result : Negative Internal Control Line Present : Yes Internal Control Background Clear : Yes LALI SEAY RN - 11/25/2020 14:39 EST Electronically signed by Jimena [facility] Conversion Dairy Equipment Specialist Cerner at 02/19/2023 9:37 AM CDT documented in this encounter Plan of Treatment Not on file documented as of this encounter Visit Diagnoses Not on filedocumented in this encounter
--- OUTSIDE RECORDS SUMMARY | 2025-09-10 15:00 | XMS_ITS | Encounter Summary ---
Author Organization [facility] Address [address] [place] [address] Care Team Providers Care Senior Specialist Name Role Phone Nadia Drummond MD Primary Care Provider [phone] Encounter Details Date Type Department Care Team [...] Description 11/03/2025 10:30 AM EST Office Visit [facility] ENDOCRINOLOGY [address] [place] [address] Cheri Harden, [address] [place] [address] documented as of this encounter Visit Diagnoses Not on filedocumented in this encounter Care Teams Senior Specialist Relationship Specialty Start Date End Date Nadia Drummond MD PCP - General Family Medicine 07/15/20 documented as of this encounter
--- OUTSIDE RECORDS SUMMARY | 2025-09-10 15:00 | XMS_ITS | Encounter Summary ---
Author Organization [employer] ([place], [place], [place], [place], [place]) Address [address] [place] [address] Care Team Providers Care Railroad Crane Operator Name Role Phone Unavailable Primary Care Provider Unavailabl e Encounter Details Date Type Department Care Team (Late st Contact Info) Description 09/24/2019 Transcribed Document [facility] [place] [address] [place] [address] ProviderLeón MD [address] [place] [address] Social History Tobacco Use Types [...] - Historical ProviderMD - 09/24/2019 7:56 AM MISSILE INSPECTOR Vital Signs ED Entered On: 09/24/2019 8:38 [...]
--- OUTSIDE RECORDS SUMMARY | 2025-09-10 15:00 | XMS_ITS | Encounter Summary ---
Author Organization [facility] Address [address] [place] [address] Care Team Providers Care Recyclable Materials Collector Name Role Phone Pcp, No Primary Care Provider Nadia Todd MD Primary Care Provider [phone] Pcp, No Primary Care Provider Nadia Todd MD Primary Care Provider [phone] Encounter Details Date Type Department Care Team (Late st Contact Info) Description 10/31/2019 [facility] Encounter Historical OTTR [address] [place] [address] Provider, [address] [address] Social History Tobacco Use Types [...] EDT Procedure Visit Obstetrics & Gynecology [address] [place] [address] Tres Ybarra MD [address] [place] [address] documented as of this encounter Visit Diagnoses Not on filedocumented in this encounter Care Teams Recyclable Materials Collector Relationship Specialty Start Date End Date Pcp, No [address] [place] [address] PCP - General 08/07/21 08/08/21 Nadia Goodson MD [address] [place] [address] PCP - General 08/09/21 08/09/21 Pcp, No [address] [place] [address] PCP - General Family Medicine 07/08/22 01/16/23 Nadia Goodson MD [address] [place] [address] PCP - General 01/17/23 documented as of this encounter
--- OUTSIDE RECORDS SUMMARY | 2025-09-10 15:00 | XMS_ITS | Encounter Summary ---
Author Organization [employer] ([place], [place], [place], [place], [place]) Address [address] [place] [address] Care Team Providers Care Manager Respiratory Care Name Role Phone Unavailable Primary Care Provider Unavailabl e Encounter Details Date Type Department Care Team (Late st Contact Info) Description 11/25/2020 Transcribed Document [facility] Radiology [address] [place] [address] Virgie Armendariz MD [facility] Dept of Emergency Medicine [place], [place] [id number] Social History Tobacco Use Types Packs/Day Years [...] at maximum was 10 /10. , just PREFLIGHT INSPECTOR . The degree at present is moderate, [...] EST Height Source Stated Height Entry Format [place] Height/Length, CROATIAN (ft) 5 ft Height/Length CROATIAN 5 Inch CLINICALHEIGHT 165.1 cm [place] Body Weight 56.59 kg Weight Source, ED Critical estimated dosing weight Weight Entry Format [place] Weight Lithuanian lb 220 lb CLINICALWEIGHT 100 kg Body [...] % 26.1 % Lymph # 2.37 x10(3)/uL Bland % 6.1 % Bland # 0.55 K/uL Eos % 1.3 % Eos # 0.12 x10(3)/uL Baso % 0.3 % Baso # 0.03 x10(3)/uL Slide Review No IG# 0.03 x10(3)/uL IG% 0.30 % . Radiology results: Radiology Results (Last 48 hours) [id number] -- 11/25/2020 10:52 CT Head WO (11/25/2020 [...] instructions. Notes: I certify that the Physician Tag Meter Operator performed the services as delegated. I agree with the assessment, treatment plan and disposition of the patient as recorded by the Physician Tag Meter Operator. This document was created with gate5 dictation software and unidentified box toe cutter errors may be present.. . documented in this encounter Plan of Treatment Not on file documented as of this encounter Visit Diagnoses Not on filedocumented in this encounter
--- OUTSIDE RECORDS SUMMARY | 2025-09-10 15:00 | XMS_ITS | Encounter Summary ---
Author Organization Healthcare Address [address] [id number] Care Team Providers Care Brancher Name Role Phone Pcp, No Primary Care Provider Nadia Todd MD Primary Care Provider [phone] Pcp, No Primary Care Provider Nadia Todd MD Primary Care Provider [phone] Encounter Details Date Type Department Care Team (Late Contact Info) Description 11/05/2019 [facility] Historical OTTR [address] [place] [address] Marla Sin, RN HOSPITAL KIDNEY [id number] [address] [place] [address] Social History Tobacco Use Types Packs/Day Years [...] EDT Procedure Visit Obstetrics & Gynecology [address] [place] [address] Tres Ybarra MD [address] [place] [address] documented as of this encounter Visit Diagnoses Not on filedocumented in this encounter Care Teams Brancher Relationship Specialty Start Date End Date Pcp, No [address] [place] [address] PCP - General 08/07/21 08/08/21 Nadia Goodson MD [address] [place], [place] [id number] PCP - General 08/09/21 08/09/21 Pcp, No [address] [place] [address] PCP - General Family Medicine 07/08/22 01/16/23 Nadia Goodson MD [address] [place] [address] PCP - General 01/17/23 documented as of this encounter
--- OUTSIDE RECORDS SUMMARY | 2025-09-10 15:00 | XMS_ITS | Referral Summary ---
Author Organization [employer] ([place], [place], [place], [place], [place]) Address [address] [place] [address] Care Team Providers Care Credit Clerk Name Role Phone Unavailable Primary Care [...]
--- OUTSIDE RECORDS SUMMARY | 2025-09-10 15:00 | XMS_ITS | Encounter Summary ---
Author Organization [employer] ([place], [place], [place], [place], [place]) Address [address] [place] [address] Care Team Providers Care Tour Manager Name Role Phone Unavailable Primary Care Provider Unavailabl e Encounter Details Date Type Department Care Team (Late st Contact Info) Description 09/24/2019 Transcribed Document [facility] Family Medicine [address] [place] [address] ProviderLeón MD [address] [place] [address] Social History Tobacco Use Types [...] León Joseph MD - 09/24/2019 5:36 AM SLAB MILLER OPERATOR ED Assessment Entered On: 09/24/2019 6:25 EST Performed On: 09/24/2019 6:24 EST by RENETTA NIXON RN ED Quick Look Assessment Level of Consciousness : Alert, Awake RENETTA NIXON RN - 09/24/2019 6:24 EST ED General-Functional Assess Information Obtained From : Patient Communication Barrier : None Primary Language : Nepalese Any Spiritual/Cultural Needs or Requests : No [...] RN) EENT Assessment EENT Assessment WDL : [facility] RN - 09/24/2019 6:24 EST Cardiovascular ASMT, ED Cardiovascular Assessment WDL : [facility] RENETTA NIXON RN - 09/24/2019 6:24 EST Pulses Grid Radial Pulse, Left : 2+ normal Radial Pulse, Right : 2+ normal RENETTA NIXON RN - 09/24/2019 6:24 EST Respiratory Respiratory Assessment WDL : [facility] RENETTA NIXON RN - 09/24/2019 6:24 EST Breath Sounds Assessment Grid All Lobes Breath Sounds : Clear RENETTA NIXON RN - 09/24/2019 6:24 EST Gastrointestinal ED Gastrointestinal Assessment WDL : WD with exceptions Gastrointestinal Symptoms : Abdominal pain RENETTA NIXON RN - 09/24/2019 6:24 EST Genitourinary Assessment, ED Genitourinary Assessment WDL : [facility] with exceptions Genitourinary Symptoms : Vaginal bleeding RENETTA NIXON RN - 09/24/2019 6:24 EST Musculoskeletal Musculoskeletal Assessment WDL : [facility] RENETTA NIXON RN - 09/24/2019 6:24 EST Integumentary Assessment Integumentary Assessment WDL : [facility] RENETTA NIXON RN - 09/24/2019 6:24 EST Neurologic ASMT, ED Neurologic Assessment WDL : [facility] RENETTA NIXON RN - 09/24/2019 6:24 EST Electronically signed by Jimena [facility] Conversion President + Publisher Cerner at 02/19/2023 9:43 AM CDT documented in this encounter Plan of Treatment Not on file documented as of this encounter Visit Diagnoses Not on filedocumented in this encounter
--- OUTSIDE RECORDS SUMMARY | 2025-09-10 15:00 | XMS_ITS | Encounter Summary ---
Author Organization [employer] ([place], [place], [place], [place], [place]) Address [address] [place] [address] Care Team Providers Care Sales And Service Change Leader Name Role Phone Unavailable Primary Care Provider Unavailabl e Encounter Details Date Type Department Care Team (Late st Contact Info) Description 09/24/2019 Transcribed Document [facility] [place] [address] [place] [address] ProviderLeón MD [address] [place] [address] Social History Tobacco Use Types [...] León Joseph MD - 09/24/2019 8:33 AM FORECLOSURE HOME INSPECTOR Pain Assessment Entered On: 09/24/2019 9:40 EST Performed On: 09/24/2019 9:40 EST by GENTRY CLARK RN Intervention Information: ibuprofen Performed by GENTRY CLARK RN on 09/24/2019 08:39:00 EST ibuprofen,600mg Oral Pain Assessment Pain Assessment : Follow-up assessment Pain Improved by Intervention : Yes GENTRY CLARK, OZ - 09/24/2019 9:40 EST documented in this encounter Plan of Treatment Not on file documented as of this encounter Visit Diagnoses Not on filedocumented in this encounter
--- OUTSIDE RECORDS SUMMARY | 2025-09-10 15:00 | XMS_ITS | Encounter Summary ---
Author Organization [employer] ([place], [place], [place], [place], [place]) Address [address] [place] [address] Care Team Providers Care Manager Speech Name Role Phone Unavailable Primary Care Provider Unavailabl e Encounter Details Date Type Department Care Team (Late st Contact Info) Description 09/24/2019 Transcribed Document [facility] Family Medicine [facility] [place] [address] ProviderLeón MD [facility] [place] [address] Social History Tobacco Use Types [...] - León ProviderMD - 09/24/2019 5:36 AM HEAVY THREADER ED Triage Entered On: 09/24/2019 5:47 EST Performed On: 09/24/2019 5:42 EST by MINDI WONG LOG OPERATIONS COORDINATOR Triage Across the Room Triage Date/Time : 09/24/2019 5:42 EST Chief Complaint : Pt c/o fever and vaginal bleeding x2 days. Pt stated she is on her period but the bleeding is more than usual; +abdominal cramping. No med taken MARKETING GRAPHICS SPECIALIST MINDI WONG RN - 09/24/2019 5:42 EST MINDI WONG RN - 09/24/2019 5:42 EST DCP GENERIC CODE Tracking Group : [facility] MINDI WONG RN - [...] 09/24/2019 05:47:35 EST) Problems(Active) Asthma (SNOMED CT :812864544 ) Name of Problem: Asthma ; Recorder: RAJNI RAMIREZ RN; Confirmation: Confirmed ; Classification: Medical ; Code: [id number] ; Contributor System: PowerChart ; Last Updated: 09/01/2018 18:05 EDT ; Life Cycle Date: 09/01/2018 ; Life Cycle Status: Active ; Vocabulary: SNOMED CT Hypothyroid (SNOMED CT :84618999 ) Name of Problem: Hypothyroid ; Recorder: RAJNI RAMIREZ RN; Confirmation: Confirmed ; Classification: Medical ; Code: [id number] ; Contributor System: PowerChart ; Last Updated: 09/01/2018 18:05 EDT ; Life Cycle Date: 09/01/2018 ; Life Cycle Status: Active ; Vocabulary: SNOMED CT PCOS (polycystic ovarian syndrome) (SNOMED CT :317321610 ) Name of Problem: PCOS (polycystic ovarian syndrome) ; Recorder: RAJNI RAMIREZ RN; Confirmation: Confirmed ; Classification: Medical ; Code: [id number] ; Contributor System: [employer] ; Last Updated: 09/01/2018 18:05 EDT ; Life Cycle Date: 09/01/2018 ; Life Cycle Status: Active ; Vocabulary: SNOMED CT Diagnoses(Active) Abdominal pain Date: 09/24/2019 ; Diagnosis Type: Reason For Visit ; Confirmation: Complaint of ; Clinical Dx: Abdominal pain ; Classification: Medical ; Clinical Service: Emergency medicine ; Code: PNED ; Probability: 0 ; Diagnosis Code: [id number] Fever Date: 09/24/2019 ; Diagnosis Type: Reason For Visit ; Confirmation: Complaint of ; Clinical Dx: Fever ; Classification: Medical ; Clinical Service: Emergency medicine ; Code: PNED ; Probability: 0 ; Diagnosis Code: [id number] Vaginal bleeding Date: 09/24/2019 ; Diagnosis Type: Reason For Visit ; Confirmation: Complaint of ; Clinical Dx: Vaginal bleeding ; Classification: Medical ; Clinical Service: Emergency medicine ; Code: PNED ; Probability: 0 ; Diagnosis Code: [id number] ED Height and Weight Height Source : Stated Height Entry Format : [place] Height, Feet : 5 ft(Converted to: 152 cm, 60 Inch) Height, Inches : 5 Inch(Converted to: 0 ft 5 Inch, 12.70 cm) Clinical Height : 165.1 cm Weight Source, ED : Standing scale Weight Entry Format : [place] Weight, Pounds : 220 lb Clinical Dosing Weight : 100 kg Body Surface Area (BSA) : 2.06 m2 Body Mass Index : 36.7 kg/m2 (HI) [place] Body Weight (IBW) : 56.59 kg MINDI WONG RN - 09/24/2019 5:42 EST Pain Assessment Pain Assessment : Initial assessment Pain Scale Used : 0-10 Scale MINDI WONG RN - 09/24/2019 5:42 EST Pain Scale Intensity : 6 MINDI WONG, RN - 09/24/2019 5:42 EST Image 4 - Images currently included in the form version of this document have not been included in the text rendition version of the form. ED Influenza/Pneumoccocal Vaccine Influenza Immunization, Current Season : No Previous Vaccines from Immunization Schedule : No qualifying data available. MINDI WONG, RN - 09/24/2019 5:42 EST Electronically signed by [facility] Conversion Skatesman Cerner at 02/19/2023 9:39 AM CDT documented in this encounter Plan of Treatment Not on file documented as of this encounter Visit Diagnoses Not on filedocumented in this encounter
--- OUTSIDE RECORDS SUMMARY | 2025-09-10 15:00 | XMS_ITS | Encounter Summary ---
Author Organization [employer] ([place], [place], [place], [place], [place]) Address [address] [place] [address] Care Team Providers Care Chip Washer Name Role Phone Unavailable Primary Care Provider Unavailabl e Encounter Details Date Type Department Care Team (Late st Contact Info) Description 09/24/2019 Transcribed Document [facility] [place] [facility] [place] [address] ProviderLeón MD [address] [place] [address] Social History Tobacco Use Types Packs/Day Years Used Date Smoking Tobacco: Never Assessed Comments Unknown Sex and Gender Information Value Date Recorded Sex Assigned at Not on file Legal Sex Female 6:09 PM CDT Gender Identity Not on file Sexual Orientation Not on file documented as of this encounter Miscellaneous Notes * [employer] Conversion Note - León ProviderMD - 09/24/2019 9:17 AM FISH SKINNING MACHINE FEEDER Electronically signed by Jimena [facility] Conversion Cargo Service Agent Cerner at 02/19/2023 9:55 AM CDT documented in this encounter Plan of Treatment Not on file documented as of this encounter Visit Diagnoses Not on filedocumented in this encounter
--- OUTSIDE RECORDS SUMMARY | 2025-09-10 15:00 | XMS_ITS | Encounter Summary ---
Author Organization [employer] ([place], [place], [place], [place], [place]) Address [address] [place] [address] Care Team Providers Care Campus Supervisor Name Role Phone Unavailable Primary Care Provider Unavailabl e Encounter Details Date Type Department Care Team (Late st Contact Info) Description 11/25/2020 Transcribed Document [facility] Family Medicine [address] [place] [address] ProviderLeón MD [address] [place] [address] Social History Tobacco Use Types [...] - León ProviderMD - 11/25/2020 10:52 AM PUBLIC UTILITIES SALES REPRESENTATIVE ED Assessment Entered On: 11/25/2020 14:03 EST Performed On: 11/25/2020 14:01 EST by LALI SEAY RN ED Quick Look Assessment Level of Consciousness : Alert, Awake Affect/Behavior : Appropriate, Calm, Cooperative Orientation : Oriented x 4 Skin Temperature : Warm Skin Description : Dry, [place] LALI SEAY RN - 11/25/2020 14:01 EST ED General-Functional Assess Information Obtained From : Patient Preferred Communication Mode : Verbal Communication Barrier : None Primary Language : [place] Sudanese Any Spiritual/Cultural Needs or Requests : No Currently in Unsafe Situation : No LALI SEYA RN - 11/25/2020 14:01 EST Social Habits [...] RN) Gastrointestinal ED Gastrointestinal Assessment WDL : WDLALI MOSER RN - 11/25/2020 14:01 EST Genitourinary Assessment, [...] LALI SEAY RN - 11/25/2020 14:01 EST [place] Coma [place] Best Motor Response : Obey commands [place] Best Verbal Response : Oriented [place] Eye Opening Response : Spontaneous [place] Coma Score : 15 LALI SEAY RN - 11/25/2020 14:01 EST Electronically signed by Jimena [facility] Conversion Investment Accounting Clerk Cerner at 02/19/2023 10:00 AM CDT documented in this encounter Plan of Treatment Not on file documented as of this encounter Visit Diagnoses Not on filedocumented in this encounter
--- OUTSIDE RECORDS SUMMARY | 2025-09-10 15:00 | XMS_ITS | Encounter Summary ---
Author Organization [employer] ([place], [place], [place], [place], [place]) Address [address] [place] [address] Care Team Providers Care Clinical Outcomes Manager Name Role Phone Unavailable Primary Care Provider Unavailabl e Encounter Details Date Type Department Care Team (Late st Contact Info) Description 11/25/2020 Transcribed Document [facility] Family Medicine [facility] [place] [address] ProviderLeón MD [address] [place] [address] Social History Tobacco Use Types [...] - Historical ProviderMD - 11/25/2020 3:34 PM CONCRETE BUCKET UNLOADER Electronically signed by Jimena [facility] Conversion Core Drill Operator Cerner at 02/19/2023 9:52 AM CDT documented in this encounter Plan of Treatment Not on file documented as of this encounter Visit Diagnoses Not on filedocumented in this encounter
--- OUTSIDE RECORDS SUMMARY | 2025-09-10 15:00 | XMS_ITS | Encounter Summary ---
Author Organization [employer] ([place], [place], [place], [place], [place]) Address [address] [place] [address] Care Team Providers Care Health Information Technologist Name Role Phone Unavailable Primary Care Provider Unavailabl e Encounter Details Date Type Department Care Team (Late st Contact Info) Description 11/25/2020 Transcribed Document [facility] Family Medicine [address] [place] [address] ProviderLeón MD [address] [place] [address] Social History Tobacco Use Types [...] León Joseph MD - 11/25/2020 4:12 PM MANAGER OF PURCHASING [facility] [place] [address] PAM FENG :1995 Visit Time:11/25/2020 Your [...] range between ( 0.0 and 7.0 ) [place] #: 0.55 K/uL -- Normal range between ( 0.16 and 1.00 ) Eos #: 0.12 x10(3)/uL -- Normal range between ( 0.00 and 0.80 ) [place] %: 6.1 % -- Normal range between [...] instructions at home: Managing pain ??? Take ylhb-psc-gddhmbm and prescription medicines only as told by [...] Reviewed: 02/02/2018 Elsevier Patient Education ?? 2020 [employer] Emergency Awareness and Preventative Care STROKE [...] Assistance with quitting is available by contacting 5-220-VLDK-NOW. This is a free resource providing counseling, [...] was given the opportunity to ask questions. Patient/Journeyman Molder Name: Patient/Journeyman Molder Signature: Relationship to Patient: Clinician/Hospital Journeyman Molder Signature: Please Provide a Telephone Number Where You Can Be Reached: Is it Permissible To Leave a Message? Date: documented in this encounter Plan of Treatment Not on file documented as of this encounter Visit Diagnoses Not on filedocumented in this encounter
--- OUTSIDE RECORDS SUMMARY | 2025-09-10 15:00 | XMS_ITS | Clinical Summary ---
Author Organization [facility] Address [address] [place] [address] Care Team Providers Care Entry Level Drafter Name Role Phone Nadia Drummond MD Primary Care Provider [phone] Allergies Active Allergy Reactions Criticality Noted Date [...] Description 07/28/2025 11:15 AM EDT Office Visit [facility] ENDOCRINOLOGY [address] [place] [address] Cheri Harden DO Acquired hypothyroidism (Primary Dx); Solitary thyroid nodule 07/28/2025 Travel 07/24/[address] [facility] ENDOCRINOLOGY [address] [place] [address] Cheri Harden DO from Last 3 Months [...] Caitlin Obesity Mother Caitlin Obesity Paternal Grandmother Brocton Relation Name Status Comments Brother Alive Father Anam Alive Maternal Grandfather Aren Maternal Grandmother Yvette Mother Caitlin Alive Paternal Grandfather Paternal Grandmother [place] Social History Tobacco Use Types Packs/Day Years [...] Description 11/03/2025 10:30 AM EST Office Visit [facility] ENDOCRINOLOGY [address] [place] [address] Cheri Harden, [address] [place] [address] Health Maintenance Due Date Last Done Comments [...] 02/16/2022 3:08 PM EDT Performed at: - [facility] [address] [place] [id number] Caramel Maker: Gulilermo Choi PhD, Phone: [phone] Patient Fasting: N Charla [place] PA-C LAB BLOOD ORDERABLES Final Result [facility] ([facility]ATORY) [address] [place] [address], [facility] [address] [place] [address], from Last 3 Months or Most Recently Relevant to Health Maintenance Insurance [facility] [place] [id number] [facility] Care Teams Entry Level Drafter Relationship Specialty Start Date End Date Nadia Drummond MD PCP - General Family Medicine 07/15/20
== END 2025-09-10 23:59 | disposition home or self-care (01) ==
LOC: RAD 14:58
PROVIDERS: PCP Family Medicine; Visit Provider Obstetrics & Gynecology
DX: N28.1 Cyst of kidney, acquired (principal); N23 Unspecified renal colic; Z33.1 Pregnant state, incidental
CPT/HCPCS: 76770

== ENCOUNTER 2025-09-15 12:27 | Outpatient (CLI) | payer BC, SELFPAY ==
--- OUTSIDE RECORDS SUMMARY | 2021-05-03 11:23 | XMS_ITS | Encounter Summary ---
[facility] [address] [place] [address] Care Team Providers Care Motion Picture Set Up Worker Name Role Phone Nadia Drummond MD Primary Care Provider [phone] Reason for Visit * Diagnostic Imaging (Routine) - Closed Specialty Diagnoses / Procedures Referred By Contac t Referred To Contact Radiology Diagnoses Hypothyroidism, unspecified type Procedures US Thyroid Cheri Harden DO [address] [place] [address] Phone: tel: fax: [facility] [address] [place] [address] Phone: tel: fax: Referral ID Status Reason Start Date Expiration Date Visits Re quested Visits Authorized [id number] Closed 05/03/2021 05/03/2022 1 1 Encounter Details Date Type Department Care Team (Late st Contact Info) Description 05/03/2021 12:23 PM EDT Hospital Encounter [facility] [address] [place] [address] Social History Tobacco Use Types [...] Description 11/03/2025 10:30 AM EST Office Visit [facility] [address] [facility] [address] [place] [address] Cheri Harden, [address] [facility] [address] [place] [address] documented as of this encounter Procedures Procedure [...] documented as of this encounter Care Teams Motion Picture Set Up Worker Relationship Specialty Start Date End Date Nadia Drummond MD PCP - General Family Medicine 07/15/20 documented as of this encounter
--- OUTSIDE RECORDS SUMMARY | 2022-10-13 09:42 | XMS_ITS | Encounter Summary ---
Author [facility] [address] [place] [address] Care Team Providers Care Pallet Stone Inserter Name Role Phone Nadia Drummond MD Primary Care Provider [phone] Reason for Visit * Diagnostic Imaging (Routine) - Closed Specialty Diagnoses / Procedures Referred By Idalia caruso Referred To Contact Radiology Diagnoses Solitary thyroid nodule Procedures US Thyroid Cehri Harden DO 3084 [id number] [facility]LEH[facility] [address] [place] [address] Phone: tel: fax: Referral ID Status Reason Start Date Expiration Date Visits Re quested Visits Authorized [id number] Closed 10/13/2022 10/13/2023 1 1 Encounter Details Date Type Department Care Team (Late st Contact Info) Description 10/13/2022 9:42 AM EST Hospital Encounter [facility] [address] [address] [place] [phone] Social History Tobacco Use Types Packs/Day [...] Description 11/03/2025 10:30 AM EST Office Visit [facility] ENDOCRINOLOGY 30[address] [facility] [address] [place] [address] Cheri Harden, DO [address] [address] documented as of this encounter Procedures Procedure [...] documented as of this encounter Care Teams Pallet Stone Inserter Relationship Specialty Start Date End Date Nadia Drummond MD PCP - General Family Medicine 07/15/20 documented as of this encounter
--- OUTSIDE RECORDS SUMMARY | 2025-07-28 10:15 | XMS_ITS | Encounter Summary ---
Author Organization [facility] Address [address] [place] [address] Care Team Providers Care Patent Examiner Name Role Phone Nadia Drummond MD Primary Care Provider [phone] Reason for Visit * Reason Comments Hypothyroidism AcquiredThyroid labs scanned 07/24/2025 Thyroid Problem Solitary Thyroid Nod ule Encounter Details Date Type Department Care Team (Late st Contact Info) Description 07/28/2025 11:15 AM EDT Office Visit [facility] ENDOCRINOLOGY [address] [place] [address] Cheri Harden, [address] [place] [address] Acquired hypothyroidism (Primary Dx); Solitary [...] T4 9.4 Ultrasound report from 05/13/2020 at [facility] showed the left nodule measuring 1.4 x [...] concerns. Electronically signed by: Cheri Harden DO Physical Therapist Center Manager Please note that portions of this note were completed with a voice recognition program. documented in this encounter Plan of Treatment Upcoming Encounters Date Type Department Care Team (Late st Contact Info) Description 11/03/2025 10:30 AM EST Office Visit [facility] ENDOCRINOLOGY [address] [address] Cheri Harden DO [address] [facility] [address] [place] [address] Scheduled Orders Name Type Priority Associated Diagnoses Orde r Schedule T4 Lab Routine Acquired hypothyroidism Expected: 11/14/2025 (Approximate), Expires: 10/27/2026 TSH Lab Routine Acquired hypothyroidism Expected: 11/14/2025 (Approximate), Expires: 10/27/2026 documented as of this encounter Visit Diagnoses Diagnosis Acquired hypothyroidism- Primary Unspecified hypothyroidism Solitary thyroid nodule documented in this encounter Care Teams Patent Examiner Relationship Specialty Start Date End Date Nadia Drummond MD PCP - General Family Medicine 07/15/20 documented as of this encounter
--- OUTSIDE RECORDS SUMMARY | 2025-09-15 12:29 | XMS_ITS | Encounter Summary ---
Author Organization Healthcare Address [address] [id number] Care Team Providers Care Visitor Services Representative Name Role Phone Pcp, No Primary Care Provider Nadia Todd MD Primary Care Provider [phone] Pcp, No Primary Care Provider Nadia Todd MD Primary Care Provider [phone] Encounter Details Date Type Department Care Team (Late Contact Info) Description 11/05/2019 [facility] OT[facility] Historical OTTR [address] [place] [address] Marla Sin, RN HOSPITAL KIDNEY [id number] [address] [place] [address] Social History Tobacco Use Types Packs/Day Years [...] EDT Procedure Visit Obstetrics & Gynecology [address] [place] [address] Tres Ybarra MD [address] [place] [address] documented as of this encounter Visit Diagnoses Not on filedocumented in this encounter Care Teams Visitor Services Representative Relationship Specialty Start Date End Date Pcp, No [address] [place] [address] PCP - General 08/07/21 08/08/21 Nadia Goodson MD [address] [place], [place] [id number] PCP - General 08/09/21 08/09/21 Pcp, No [address] [place] [address] PCP - General Family Medicine 07/08/22 01/16/23 Nadia Goodson MD [address] [place] [address] PCP - General 01/17/23 documented as of this encounter
--- OUTSIDE RECORDS SUMMARY | 2025-09-15 12:29 | XMS_ITS | Encounter Summary ---
Author Organization [facility] Address [address] [place] [address] Care Team Providers Care Mass Communications Instructor Name Role Phone Nadia Drummond MD Primary Care Provider [phone] Encounter Details Date Type Department Care Team [...] Description 11/03/2025 10:30 AM EST Office Visit [facility] ENDOCR[facility] [address] [place] [address] Cheri Harden, [address] [place] [address] documented as of this encounter Visit Diagnoses Not on filedocumented in this encounter Care Teams Mass Communications Instructor Relationship Specialty Start Date End Date Nadia Drummond MD PCP - General Family Medicine 07/15/20 documented as of this encounter
--- OUTSIDE RECORDS SUMMARY | 2025-09-15 12:29 | XMS_ITS | Encounter Summary ---
Author Organization Healthcare Address [address] [place] [address] Care Team Providers Care Wood Pile Driver Operator Name Role Phone Pcp, No Primary Care Provider Nadia Todd MD Primary Care Provider [phone] Pcp, No Primary Care Provider Nadia Todd MD Primary Care Provider [phone] Encounter Details Date Type Department Care Team (Late st Contact Info) Description 10/31/2019 [facility] Encounter Historical OTTR [address] [place] [address] Provider, [address] [address] Social History Tobacco Use Types [...] EDT Procedure Visit Obstetrics & Gynecology [address] [place] [address] Tres Ybarra MD [address] [place] [address] documented as of this encounter Visit Diagnoses Not on filedocumented in this encounter Care Teams Wood Pile Driver Operator Relationship Specialty Start Date End Date Pcp, No [address] [place] [address] PCP - General 08/07/21 08/08/21 Nadia Goodson MD [address] [place] [address] PCP - General 08/09/21 08/09/21 Pcp, No [address] [place] [address] PCP - General Family Medicine 07/08/22 01/16/23 Nadia Goodson MD [address] [place] [address] PCP - General 01/17/23 documented as of this encounter
--- OUTSIDE RECORDS SUMMARY | 2025-09-15 12:29 | XMS_ITS | Data Portability ---
Author Organization [facility] & [place] [facility] AD[facility] Address [address] [place] [id number] Care Team Providers Care Job Boss Name Role Phone NADIA VAUGHN Primary Care Provider Assessment No assessment recorded. Plan of Treatment Reminders Order Date Submit Date Provider Last Modified By Organization Details Last Modified Time Details Appointments None recorded. Lab HbA1c (hemoglobin A1c), blood 2024 025 [facility], [address], [address], [place], [address], 5 12:47:29 TSH + free T4, serum 2024 025 [email or web address] [facility], [address], [address], [place], [address], 5 12:47:30 lipid panel, serum 2024 025 [email or web address] [facility], [address], [address], [place], [address], 5 12:47:30 iron + TIBC + ferritin, serum 2024 025 [email or web address] [facility], [address], [address], [place], [address], 5 12:47:29 folate, serum 2024 025 [email or web address] [facility], [address], [address], [place], [address], 5 12:47:29 prealbumin, serum 2024 025 [email or web address] [facility], [address], [address], [place], [address], 5 12:47:29 thiamine, QN, blood 2024 025 [email or web address] [facility], [address], [address], [place], [address], 5 12:47:29 methylmalon ate, QN, serum or plasma 2024 025 [email or web address] [facility], [address], [address], [place], [address], 5 12:47:29 vitamin D, 25-hydroxy, total, serum 2024 025 [email or web address] [facility], [address], [address], [place], [address], 5 12:47:29 vitamin E, serum 2024 025 [email or web address] [facility], [address], [address], [place], [address], 5 12:47:29 vitamin A (retinol), serum 2024 025 [email or web address] [facility], [address], [address], [place], [address], 5 12:47:29 CBC w/ auto diff 2024 025 [email or web address] [facility], [address], [address], [place], [address], 12:47:29 CMP, serum or plasma 2024 025 [email or web address] [facility], [address], [address], [place], [address], 12:47:29 Referral None recorded. Procedures None recorded. Surgeries None recorded. Imaging MRI, abdomen, w/wo contrast 2023 024 [email or web address] [facility] (Centralized Scheduling), [address], [place], [address], 08:27:15 Medication Orders Zepbound 10 mg/0.5 mL subcutaneou s pen injector 2024 025 [facility] - [facility], [address], [place], [address], 09:24:46 ondansetron 4 mg disintegrat ing tablet 2024 025 [facility] - [facility], [address], [place], [address], 5 09:24:48 Zepbound 7.5 mg/0.5 mL subcutaneou s pen injector 2024 025 [facility] - [facility], [address], [place], [address], 5 14:11:55 Zepbound 5 mg/0.5 mL subcutaneou s pen injector 2024 025 [facility]259 - [facility], [address], [place], [address], 09:17:26 Zepbound 2.5 mg/0.5 mL subcutaneou s pen injector 2024 025 [facility] 7259 - [facility], [address], [place], [address], 13:58:34 famotidine 20 mg tablet 2024 025 [facility] 7259 - [facility], [address], [place], [address], 13:40:29 omeprazole 20 mg capsule,del ayed release 2024 025 [facility] 7259 - [facility], [address] [facility] [address], [place], [address], 13:40:31 Patient TargetsNo targets recorded. Patient InstructionsNo instructions recorded. Reason for Referral None Reported. Results Created Date Observation Date Name Description Value Unit Range Abnormal Flag Note LastModifiedBy Organization Detail LastModifiedTime 01/10/2001/10/2025 FE+TI BC+FE R iron bind.cap.(TI BC) 479 ug/dL 250-45 0 above high normal Not Available [facility] ([facility]) [address] [place], [address], 01/19/2025 08:36:15 01/10/2001/10/2025 FE+TI BC+FE R UIBC 456 ug/dL 131-42 5 above high normal Not Available [facility] ([facility]) [address] [place], [address], 01/19/2025 08:36:15 01/10/20 25 01/10/2025 FE+TI BC+FE R iron 23 ug/dL 27-159 below low normal Not Available [facility] ([facility]) [address] [place], [address], 01/19/2025 08:36:15 01/10/20 25 01/10/2025 FE+TI BC+FE R iron saturation 5 % 15-55 alert low Not Available [facility] ([facility]) [address] [place], [address], 01/19/2025 08:36:15 01/10/20 25 01/10/2025 FE+TI BC+FE R ferritin 7 NG/mL 15-150 below low normal Not Available [facility] ([facility]) [address] [place], [address], 01/19/2025 08:36:15 01/10/20 25 01/10/2025 TSH+F REE T4 TSH 3.330 uIU/m L 0.450- 4.500 normal Not Available [facility] ([facility]) [address] [place], [address], 01/19/2025 08:36:16 01/10/2001/10/2025 TSH+F REE T4 T4,free(dire ct) 1.20 NG/dL 0.82-1 .77 normal Not Available [facility] ([facility]) [address] [place], [address], 01/19/2025 08:36:16 01/10/2001/10/2025 CBC WITH DIFFE RENTI AL/PL ATELE T WBC 7.2 x10e3 /uL 3.4-10 .8 normal Not Available [facility] ([facility]) [address] [place], [address], 01/19/2025 08:36:16 01/10/20 25 01/10/2025 CBC WITH DIFFE RENTI AL/PL ATELE T RBC 4.86 x10e6 /uL 3.77-5 .28 normal Not Available [facility] ([facility]) [address] [place], [address], 01/19/2025 08:36:16 01/10/20 25 01/10/2025 CBC WITH DIFFE RENTI AL/PL ATELE T hemoglobin 10.0 g/dL 11.1-1 5.9 below low normal Not Available [facility] ([facility]) [address] [place], [address], 01/19/2025 08:36:16 01/10/20 25 01/10/2025 CBC WITH DIFFE RENTI AL/PL ATELE T hematocrit 33.3 % 34.0-4 6.6 below low normal Not Available [facility] ([facility]) [address] [place], [address], 01/19/2025 08:36:16 01/10/20 25 01/10/2025 CBC WITH DIFFE RENTI AL/PL ATELE T MCV 69 fL 79-97 below low normal Not Available [facility] ([facility]) [address] [place], [address], 01/19/2025 08:36:16 01/10/20 25 01/10/2025 CBC WITH DIFFE RENTI AL/PL ATELE T MCH 20.6 pg 26.6-3 3.0 below low normal Not Available [facility] ([facility]) [address] [place], [address], 01/19/2025 08:36:16 01/10/20 25 01/10/2025 CBC WITH DIFFE RENTI AL/PL ATELE T MCHC 30.0 g/dL 31.5-3 5.7 below low normal Not Available [facility] ([facility]) [address] [place], [address], 01/19/2025 08:36:16 01/10/20 25 01/10/2025 CBC WITH DIFFE RENTI AL/PL ATELE T RDW 14.7 % 11.7-1 5.4 Not Available [facility] ([facility]) [address] [place], [address], 01/19/2025 08:36:16 01/10/20 25 01/10/2025 CBC WITH DIFFE RENTI AL/PL ATELE T platelets 265 x10e3 /uL 150-45 0 normal Not Available [facility] ([facility]) [address] [facility], [place], [address], 01/19/2025 08:36:16 01/10/20 25 01/10/2025 CBC WITH DIFFE RENTI AL/PL ATELE T neutrophils 66 % not estab. normal Not Available [facility] ([facility]) [address] [facility], [place], [address], 01/19/2025 08:36:16 01/10/20 25 01/10/2025 CBC WITH DIFFE RENTI AL/PL ATELE T lymphs 24 % not estab. normal Not Available [facility] ([facility]) [address] [facility], [place], [address], 01/19/2025 08:36:16 01/10/20 25 01/10/2025 CBC WITH DIFFE RENTI AL/PL ATELE T monocytes 8 % not estab. normal Not Available [facility] ([facility]) [address] [facility], [place], [address], 01/19/2025 08:36:16 01/10/20 25 01/10/2025 CBC WITH DIFFE RENTI AL/PL ATELE T eos 2 % not estab. normal Not Available [facility] ([facility]) [address] [facility], [place], [address], 01/19/2025 08:36:16 01/10/20 25 01/10/2025 CBC WITH DIFFE RENTI AL/PL ATELE T basos 0 % not estab. normal Not Available [facility] ([facility]) [address] [facility], [place], [address], 01/19/2025 08:36:16 01/10/20 25 01/10/2025 CBC WITH DIFFE RENTI AL/PL ATELE T immature cells ASSEMBLY WORKER Not Available [facility] ([facility]) [address] [place], [address], 01/19/2025 08:36:16 01/10/20 25 01/10/2025 CBC WITH DIFFE RENTI AL/PL ATELE T neutrophils (absolute) 4.7 x10e3 /uL 1.4-7. 0 normal Not Available [facility] ([facility]) [address] [place], [address], 01/19/2025 08:36:16 01/10/20 25 01/10/2025 CBC WITH DIFFE RENTI AL/PL ATELE T lymphs (absolute) 1.7 x10e3 /uL 0.7-3. 1 normal Not Available [facility] ([facility]) [address] [place], [address], 01/19/2025 08:36:16 01/10/20 25 01/10/2025 CBC WITH DIFFE RENTI AL/PL ATELE T monocytes(ab solute) 0.6 x10e3 /uL 0.1-0. 9 normal Not Available [facility] ([facility]) [address] [place], [address], 01/19/2025 08:36:16 01/10/20 25 01/10/2025 CBC WITH DIFFE RENTI AL/PL ATELE T eos (absolute) 0.1 x10e3 /uL 0.0-0. 4 normal Not Available [facility] ([facility]) [address] [place], [address], 01/19/2025 08:36:16 01/10/20 25 01/10/2025 CBC WITH DIFFE RENTI AL/PL ATELE T baso (absolute) 0.0 x10e3 /uL 0.0-0. 2 normal Not Available [facility] ([facility]) [address] [place], [address], 01/19/2025 08:36:16 01/10/20 25 01/10/2025 CBC WITH DIFFE RENTI AL/PL ATELE T immature granulocytes 0 % not estab. Not Available [facility] ([facility]) [address] [facility], [place], [address], 01/19/2025 08:36:16 01/10/20 25 01/10/2025 CBC WITH DIFFE RENTI AL/PL ATELE T immature grans (abs) 0.0 x10e3 /uL 0.0-0. 1 Not Available [facility] ([facility]) [address] [facility], [place], [address], 01/19/2025 08:36:16 01/10/20 25 01/10/2025 CBC WITH DIFFE RENTI AL/PL ATELE T NRBC ASSEMBLY WORKER Not Available [facility] ([facility]) [address] [facility], [place], [address], 01/19/2025 08:36:16 01/10/20 25 01/10/2025 CBC WITH DIFFE RENTI AL/PL ATELE T hematology comments: ASSEMBLY WORKER Not Available [facility] ([facility]) [address] [facility], [place], [address], 01/19/2025 08:36:16 01/10/20 25 01/10/2025 COMP. METAB OLIC PANEL (14) glucose 74 mg/dL 70-99 normal Not Available [facility] ([facility]) [address] [facility], [place], [address], 01/19/2025 08:36:18 01/10/20 25 01/10/2025 COMP. METAB OLIC PANEL (14) BUN 12 mg/dL 6-20 normal Not Available [facility] ([facility]) [address] [place], [address], 01/19/2025 08:36:18 01/10/20 25 01/10/2025 COMP. METAB OLIC PANEL (14) creatinine 0.60 mg/dL 0.57-1 .00 normal Not Available [facility] ([facility]) [address] [place], [address], 01/19/2025 08:36:18 01/10/20 25 01/10/2025 COMP. METAB OLIC PANEL (14) eGFR 123 mL/mi n/1.7 3 >59 normal Not Available [facility] ([facility]) [address] [facility], [place], [address], 01/19/2025 08:36:18 01/10/20 25 01/10/2025 COMP. METAB OLIC PANEL (14) BUN/creatini ne ratio 20 9-23 normal Not Available [facility] ([facility]) [address] [facility], [place], [address], 01/19/2025 08:36:18 01/10/20 25 01/10/2025 COMP. METAB OLIC PANEL (14) sodium 139 mmol/ L 134-14 4 normal Not Available [facility] ([facility]) [address] [place], [address], 01/19/2025 08:36:18 01/10/20 25 01/10/2025 COMP. METAB OLIC PANEL (14) potassium 4.1 mmol/ L 3.5-5. 2 normal Not Available [facility] ([facility]) [address] [place], [address], 01/19/2025 08:36:18 01/10/20 25 01/10/2025 COMP. METAB OLIC PANEL (14) chloride 103 mmol/ L 96-106 normal Not Available [facility] ([facility]) [address] [place], [address], 01/19/2025 08:36:18 01/10/20 25 01/10/2025 COMP. METAB OLIC PANEL (14) carbon dioxide, total 21 mmol/ L 20-29 normal Not Available [facility] ([facility]) [address] [facility] [place], [address], 01/19/2025 08:36:18 01/10/20 25 01/10/2025 COMP. METAB OLIC PANEL (14) calcium 9.0 mg/dL 8.7-10 .2 normal Not Available [facility] ([facility]) [address] [facility] [place], [address], 01/19/2025 08:36:18 01/10/20 25 01/10/2025 COMP. METAB OLIC PANEL (14) protein, total 7.3 g/dL 6.0-8. 5 normal Not Available [facility] ([facility]) [address] [facility], [place], [address], 01/19/2025 08:36:18 01/10/20 25 01/10/2025 COMP. METAB OLIC PANEL (14) albumin 4.8 g/dL 3.9-4. 9 normal Not Available [facility] ([facility]) [address] [facility] [place], [address], 01/19/2025 08:36:18 01/10/20 25 01/10/2025 COMP. METAB OLIC PANEL (14) globulin, total 2.5 g/dL 1.5-4. 5 Not Available [facility] ([facility]) [address] [facility] [place], [address], 01/19/2025 08:36:18 01/10/20 25 01/10/2025 COMP. METAB OLIC PANEL (14) bilirubin, total 0.3 mg/dL 0.0-1. 2 normal Not Available [facility] ([facility]) [address] [facility] [place], [address], 01/19/2025 08:36:18 01/10/20 25 01/10/2025 COMP. METAB OLIC PANEL (14) alkaline phosphatase 104 IU/L 44-121 normal Not Available [facility] ([facility] [address] [place], [address], 01/19/2025 08:36:18 01/10/20 25 01/10/2025 COMP. METAB OLIC PANEL (14) AST (SGOT) 16 IU/L 0-40 normal Not Available [facility] ([facility]) [address] [facility] [place], [address], 01/19/2025 08:36:18 01/10/20 25 01/10/2025 COMP. METAB OLIC PANEL (14) ALT (SGPT) 11 IU/L 0-32 normal Not Available [facility] ([facility]) [address] [place], [address], 01/19/2025 08:36:18 01/10/20 25 01/10/2025 LIPID PANEL cholesterol, total 161 mg/dL 100-19 9 normal Not Available [facility] ([facility]) [address] [place], [address], 01/19/2025 08:36:18 01/10/20 25 01/10/2025 LIPID PANEL triglyceride s 94 mg/dL 0-149 normal Not Available [facility] ([facility] [address] [place], [address], 01/19/2025 08:36:18 01/10/20 25 01/10/2025 LIPID PANEL HDL cholesterol 60 mg/dL >39 normal Not Available [facility] ([facility] [address] [place], [address], 01/19/2025 08:36:18 01/10/20 25 01/10/2025 LIPID PANEL VLDL cholesterol jessica 17 mg/dL 5-40 Not Available [facility] ([facility]) [address] [place], [address], 01/19/2025 08:36:18 01/10/20 25 01/10/2025 LIPID PANEL LDL chol calc (nih) 84 mg/dL 0-99 Not Available [facility] ([facility] [address] [facility], [place], [address], 01/19/2025 08:36:18 01/10/20 25 01/10/2025 LIPID PANEL LDL calc 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 Not Available [facility] ([facility]) [address] [facility], [place], [address], 01/19/2025 08:36:19 01/10/20 25 01/10/2025 HEMOG LOBIN A1C hemoglobin A1C 5.1 % 4.8-5. 6 normal Predi abete s: 5.7 - 6.4 Diabe [place]: >6.4 Glyce quintin contr ol for adult s with diabe [place]: <7.0 Not Available [facility] ([facility]) [address] [facility], [place], [address], 01/19/2025 08:36:19 01/10/20 25 01/10/2025 FOLAT E (FOLI C ACID) , SERUM folate (folic acid), serum 11.6 NG/mL >3.0 normal A serum folat e victoriano ntrat ion of less than 3.1 ng/mL is consi dered to repre sent clini jessica defic iency . Not Available [facility] ([facility]) [address] [facility], [place], [address], 01/19/2025 08:36:20 01/10/2001/19/2025 VITAM IN A, SERUM [...] e jonathan cteri stics deter mined by [employer]. It has not been clear ed or appro shae by the Food and Drug Admin istra tion. Not Available [facility] ([facility]) [address] [facility], [place], [address], 01/19/2025 08:36:21 01/10/20 25 01/10/2025 VITAM IN [...] Amalia red [place]: The Natio nal [facility] Press . 2. Holic richard [place], Rose [place], Arian off-F errar i NAGY, et al. Evalu ation , treat ment, and preve ntion of vitam in D defic iency : an Endoc rine Socie ty clini jessica pract ice guide line. JCEM. 2010; 96(7) :1911 -30. Not Available [facility] ([facility]) [address] [facility], [place], [address], 01/19/2025 08:36:21 01/10/20 25 01/13/2025 VITAM IN B1 (THIA MINE) , BLOOD vit. B1, whole blood 136.6 nmol/ L 66.5-2 00.0 Not Available [facility] ([facility]) [address] [place], [address], 01/19/2025 08:36:22 01/10/20 25 01/15/2025 METHY LMALO HIWOT ACID, SERUM methylmaloni c acid, serum 177 nmol/ L 0-378 Not Available [facility] ([facility]) [address] [place], [address], 01/19/2025 08:36:22 01/10/20 25 01/10/2025 PREAL BUMIN prealbumin 23 mg/dL 14-35 Not Available [facility] ([facility] [address] [place], [address], 01/19/2025 08:36:23 04/15/20 24 04/15/2024 MRI ABD w/w/O [facility] [address] [place] [address] Phone: Fax: Name: WALLY PHILLIPS Exam Date: 024 : [birth year] Age 28 years Gender : F Access ion: [id number] Physic jarett: NADIA DRUMMOND ty: [facility] Facili ty HSV: Outpat ient Exam: MRI [...] Thank you for referr WALLY [facility] Legall y carter gallego by TARA Aviles III 04-15 15:49: 37 CC'ed Logic: Orderi ng Provid er: RODERICK GORE CC Provid er: RODERICK GORE Attend ing Provid er: RODERICK GORE Referr ing Provid er: RODERICK GORE Admitt ing Provid er: RODERICK [email or web address] [facility] [address], [place], [address], 01/09/2025 13:34:49 03/25/20 25 03/25/2025 XR, knee No observ ation record ed. [email or web address], [place], [place], [address], 03/27/2025 18:08:14 04/24/20 25 04/24/2025 XR, chest No observ ation record ed. [email or web address], [place], [place], [address], 04/29/2025 18:06:34 04/24/20 25 04/24/2025 elect rocar diogr am No observ ation record ed. [email or web address], [place], [address], 04/29/2025 18:05:32 07/12/20 25 2025 US, trans vagin al No observ ation record ed. [address], [place], [place], [address], 07/15/2025 16:40:28 07/30/20 25 07/30/2025 elect rocar diogr am No observ ation record ed. [address], [place], [address], 07/30/2025 16:55:19 09/10/20 25 09/10/2025 lab* No observ ation record ed. [email or web address] [facility] [address], [place], [place], [address], 09/11/2025 08:12:33 Result Notes None recorded. Problems Name Problem SNOMED Code Status Onset Date Resolution Date Notes Provider Name and Address Organization Details Recorded Time Obesity 418693618 Active MUNIR [address], [place] [address], [place], [address] , [place] - [facility] & [place] 2 16:39:55 Acquired hypothyroi dism 027105723 Active MUNIR [address], [place] [address] [facility], [place], [address] , [place] - [facility] - [place] & [place] 2 16:39:55 Indigestio n 260301992 Active MUNIR POTTERMICHA[address], [place] [address] [facility], [place], [address] , [place] - [facility] & [place] 2 16:39:55 Disorder of gastrointe stinal tract 951892496 Active MUNIR ALISSA [address], [place] [address] [facility], [place], [address] , [place] [facility] & [place] 2 16:39:55 Shoulder strain 020843074 Active MUNIR ALISSA [address], [place] [address] [facility], [place], [address] , [place] [facility] & [place] 2 16:39:55 Prolactin level above reference range 483389713 Active MUNIR ALISSA [address], [place] [address] [facility], [place], [address] , [place] [facility] & [place] 2 16:39:55 Plain X-ray result abnormal 262398187 Active MUNIR [address], [place] [address] [facility], [place], [address] , [place] [facility] & [place] 2 16:39:55 Polycystic ovaries Active MUNIR [address], [place] [address] [facility], [place], [address] , [place] [facility] & [place] 2 16:39:55 Missed period 46641064 Active MUNIR ALISSA [address], [place] [address] [facility], [place], [address] , [place] [facility] & [place] 2 16:39:55 Mild depression 223565519 Active MUNIR MAXWE[address], [place] [address], [place], [address] , [place] - [facility] - [place] & [place] 2 16:39:55 Stress 78198712 Active MUNIR GARCIA [address], LD [address], [place], [address] , [place] [facility] [place] & [place] 2 16:39:55 Mixed hyperlipid emia 211409038 Active MUNIR [address], [place] [address] [facility], [place], [address] , [place] [facility] [place] & [place] 2 16:39:55 Liver enzymes level above reference range 320259769 Active MUNIR [address], [place] [address] [facility], [place], [address] , [place] [facility] [place] & [place] 2 16:39:55 Recurrent major depressive episodes, moderate 863567567 Active MUNIR [address], [place] [address] [facility], [place], [address] , [place] [facility] [place] & [place] 2 16:39:55 Mood disorder 14318554 Active MUNIR [address]WE[address], [place] [address] [facility], [place], [address] , [place] [facility] [place] & [place] 2 16:39:55 Essential hypertensi on 73784692 Active MUNIR MAXWE[address], [place] [address] [facility], [place], [address] , [place] - [facility] [place] & [place] 2 16:39:55 Steatotic liver disease 442249740 Active MUNIR MERCERLOLY GARCIA [address], [place] [address] [facility], [place], [address] , [place] [facility] [place] & [place] 2 16:39:55 Dysthymia 36272991 Active MUNIR GARCIA [address], [place] [address] [facility], [place], [address] , [place] [facility] & [place] 2 16:39:55 Thyroid nodule 634104179 Active MUNIR [address]WE[address], [place] [address] [facility], [place], [address] , [place] [facility] & [place] 2 16:39:55 Morbid obesity 360677773 Active MUNIR MAXWE[address], [place] [address] [facility], [place], [place], [address] [place] [address] , [place] [facility] & [place] 2 16:39:55 Goiter 5167734 Active MUNIR POTTERMICHAEL G[address], [place] [address] [facility], [place], [place], [address] [place] [address] , [place] [facility] & [place] 2 16:39:56 Elevated level of transamina se and lactic acid dehydrogen ase 825353258 Active MUNIR P[address]TER[address], [place] 1140 Formerly [facility], [place], [place], [address] [place] [address] , [place] - [facility] & [place] 2 16:39:56 Nausea [id number] Active MUNIR MERC[address]Y [address], [place] 1140 [facility]ly [facility], [place], [address] , [place] - [facility] & [place] 2 16:39:56 Body mass index 30+ - obesity [id number] Active MUNIR [address], [place] 1140 [facility]ly [facility], [place], [place], [address] [place] [address] , [place] - [facility] & [place] 2 16:39:56 Irregular intermenst rual bleeding 28682306 Active MUNIR ALISSAM[address], [place] 1140 [facility]ly [facility], [place], [address] , [place] - [facility] & [place] 2 16:39:56 Anxiety 73168500 Active [address]UN[address], [place] 1140 [facility]ly [facility], [place], [address] , [place] - [facility] & [place] 2 16:39:56 Nodule of lung [id number] Active MUNIR GARCIA [address], LD [address], [place], [address] , [place] - [facility] - [place] & [place] 2 16:39:56 Carpal tunnel syndrome of right wrist [id number] Active MUNIR GARCIA RD, LD [address], [place], [address] , [place] & [place] 2 16:39:56 Abdominal pain 88407964 Active MUNIR GARCIA RD, LD [address], [place], [address] , [place] & [place] 2 16:39:56 Polycystic ovary syndrome 213865232 Active 2021 YONATHAN Anderson [address], [place], [address] , [place] & [place] 2 09:00:55 Vitamin D deficiency 90397281 Active [address], LD [address] [facility], [place], [address] , [place] & [place] 2 16:39:55 Laparoscop ic sleeve gastrectom y Active [address], LD [address] [facility], [place], [address] , [place] - [place] & [place] 2 16:39:55 Hypothyroi dism 64311391 Active [address], LD [address] [facility], [place], [address] , [place] & [place] 2 16:39:56 Pain in throat 096662025 Active 2021 TREMAYNE carcamo, [place] - [place] & [place] 2 17:14:51 Intentiona l weight loss 547732308 Active 2021 Angelito Estrada, DNP, MACHINE STAKER, ASSEMBLY WORKER-C [address], [place], [address] , [place] & [place] 2 11:51:56 Heartburn 91341781 Active 2022 Angelito Estrada, MATTHEW, MACHINE STAKER, ASSEMBLY WORKER-C [address], [place], [address] , [place] - [place] & [place] 3 13:15:59 Fatigue 27807995 Active 2023 Angelito sEtrada, MATTHEW, MACHINE STAKER, ASSEMBLY WORKER-C [address], [place], [address] , [place] [facility] & [place] 4 10:28:55 Problem Notes None recorded. Procedures Surgical History Date Name Laterality Status Provider Name and Address Organization Details Recorded Time 08/06 Laparoscopy completed Isabel Mccord [place] & [place] 5 11:39:58 11/06 Pleater Hand Surgery completed Isabel Mccord [place] & [place] 5 11:29:41 10/06 Date of Last Pap Smear completed Ela Castillo [place] & [place] 4 11:58:37 09/23 laparoscopic sleeve gastrectomy completed Ana Moya [place] & [place] 2 13:07:03 07/15 esophagogastroduodenoscopy completed Karly Canales [place] & [place] 5 11:42:14 11/06 Carpal Tunnel Surgery completed Paige Ochoa [place] & [place] 4 15:50:19 06/16 fine needle biopsy of thyroid completed Isabel Mccord [place] & [place] 5 11:39:48 02/10 esophagogastroduodenoscopy completed Karly Canales [place] & [place] 5 11:33:29 11/06 Knee Surgery completed Isabel LEAVITT - [place] - [place] & [place] 5 11:37:12 11/06 Ovarian Cystectomy completed Isabel Woodsamer [place] - [place] - [place] & [place] 5 11:37:19 11/06 cholecystectomy completed Paige LEAVITT - [facility] & [place] 4 15:49:18 11/06 extraction of wisdom tooth completed Karly Ireland - [facility] & [place] 5 11:37:41 11/06 tonsillectomy completed Paige LEAVITT - [facility] & [place] 4 15:49:26 11/06 ENT Surgery completed Isabel LEAVITT - [facility] - [place] & [place] 5 11:29:41 Imaging Results None recorded. Procedure Notes None recorded. Medical Equipment None Reported. Allergies Allergen ID Allergen Name Allergen Category Reaction Reaction Severity Criticality Documentation Date Start Date Code Code System Note Provider Name and Address Organization Details Recorded Time 12360 amoxicill in medicatio n nausea rash vomiting Not available Not available Not available low 07/21/2022 723 RxNorm Hever ates cepha lospo rins Isabel carcamo, [place] - [facility] & [place] 5 11:58:46 94347 phentermi ne medicatio n tachycard ia moderate Not available 07/21/[address], LD [address], [place], [address] [facility] [place] - [facility] & [place] 2 16:40:31 122663 Non-stero idal anti-infl ammatory agent (substanc e) medicatio n other Not available low 08/29/2024 49423 5008 SNOMED Cant take with recen t gastr ic sleev e surge ry Isabel Woodsamer dona, [place] - [facility] & [place] 5 11:58:59 45273 Derm-Appl y medicatio n Not available Not available low 08/31/2022 derma cortez Isabel Mccord null, [place] - [facility] & [place] 5 11:59:05 76060 hydrocodo ne Not available rash severe high 08/31/2022 5489 RxNorm Isabel carcamo, [place] - [facility] & [place] 5 11:58:49 Medications Name [...] cm 99.2 [degF] 96 /min 28.8 kg/m2 26527.4 8 g 137/71 mm[Hg] Bernie LEAVITT [facility] & [place] 13:25:42 Date Recorded Body height Body mass index (BMI) Body weight Provider Name and Address Organization Details Last Updated DateTime 02/06/2025 165.1 cm 27.1 kg/m2 88032.56 g Reinaldo aviles [facility] & [place] 02/06/2025 14:58:01 Date Recorded Body height Body mass index (BMI) Body weight Provider Name and Address Organization Details Last Updated DateTime 03/06/2025 165.1 cm 25.6 kg/m2 59163.22 g Bernie Medina [facility] & [place] 03/06/2025 13:55:52 Date Recorded Body height Body mass index (BMI) Body weight Body temperature Oxygen saturation Oxygen saturation in Arterial blood by Pulse oximetry Heart rate Systolic And Diastolic Provider Name and Address Organization Details Last Updated DateTime 4 165.1 cm 27 kg/m2 98858.9 6 g 97.7 [degF] 98 % 98 % 64 /min 120/80 mm[Hg] Ela Jonathan [facility] & [place] 4 10:23:13 Date Recorded Body height Body mass index (BMI) Body weight Provider Name and Address Organization Details Last Updated DateTime 04/04/2025 165.1 cm 24.5 kg/m2 90913.08 g Bernie Medina [facility] & [place] 04/04/2025 09:11:54 Social History Question Answer Notes LastModified by Organizat ion Details LastModified Time Tobacco Smoking Status Never Smoker Ana carcamo [facility] & [place] 07/21/2022 13:33:48 Do You Have An Advance Directive? No Information not available 09/27/2022 Are You Blind Or Do You Have Difficulty Seeing? Yes [email or web address] Information not available 09/27/2022 Are You Deaf Or Do You Have Serious Difficulty Hearing? No [email or web address] Information not available 03/28/2023 What Was The Date Of Your Most Recent Tobacco Screening? 01/09/2025 Information not available 01/21/2025 Are You Passively Exposed To Smoke? No [email or web address] Information not available 09/27/2022 How Much Tobacco Do You Smoke? No Information not available 01/21/2025 How Many Years Have You Smoked Tobacco? 0 Information not available 01/21/2025 Sex: Female Functional Status Question Answer Note LastModified by Organizat ion Details LastModified Time Do you use any illicit or recreational drugs? No [email or web address] Information not available 07/21/2022 Do you or have you ever used any other forms of tobacco or nicotine? No [email or web address] Information not available 03/28/2023 What is your level of alcohol consumption? None [email or web address] Information not available 07/21/2022 Do you or have you ever used smokeless tobacco? Never used [email or web address] tobacco Information not available 01/21/2025 What is your exercise level? Moderate [email or web address] Information not available 09/27/2022 Mental Status Question Answer Note LastModified by Organization D etails LastModified Time Do you feel stressed (tense, restless, nervous, or anxious, or unable to sleep at night)? [id number] [email or web address] Information not available 09/27/2022 Family History Relationship Description Onset Age of this Age Resolved Age Notes LastModified by Organization Details LastModified Time Mother Diabetes mellitus Not available 02/06 14:55:01 Mother Essential hypertension [email or web address] Not available 14:55:01 Mother Obesity [email or web address] Not available 1 08:41:00 Mother Hyperlipidem ia [email or web address] Not available 02/06 14:55:01 Mother Disease of liver pt. added direct ly (01/09) [email or web address] Not available 01/09/2025 10:35:03 Mother Cirrhosis - non-alcoholi c [email or web address] Not available 02/06 14:55:01 Mother Anemia [email or web address] Not available 01/21/2025 11:57:09 Maternal Grandfather Diabetes mellitus [email or web address] Not available 02/06 14:55:01 Maternal Grandfather Essential hypertension [email or web address] Not available 14:55:01 Maternal Grandfather Coronary arterioscler osis Not available 02/06 14:55:01 Maternal Grandfather Obesity [email or web address] Not available 2023 08:41:17 Maternal Grandfather Hyperlipidem ia [email or web address] Not available 02/06 14:55:01 Maternal Grandfather Myocardial infarction [email or web address] Not available 01/21 11:56:03 Maternal Grandfather Sleep apnea [email or web address] Not available 02/06/2025 14:55:01 Father Essential hypertension [email or web address] Not available 14:55:01 Father Coronary arterioscler osis [email or web address] Not available 02/06 14:55:01 Father Obesity [email or web address] Not available 1 08:41:09 Father Hyperlipidem ia [email or web address] Not available 02/06 14:55:01 Father Heart disease [email or web address] Not available 2024 11:36:37 Father Diabetes mellitus [email or web address] Not available 02/06 14:55:01 Father Myocardial infarction [email or web address] Not available 01/21 11:55:23 Father Kidney disease [email or web address] Not available 2024 11:55:46 Maternal Grandmother Essential hypertension Not available 14:55:01 Maternal Grandmother Obesity [email or web address] Not available 2023 08:41:13 Maternal Grandmother Malignant neoplastic disease [email or web address] Not available 02/06 14:55:01 Paternal Grandmother Obesity [...] Ela Cast[place] & [place] 09/27/2023 08:17:50 COVID-19, mRNA, LNP-S, PF, 100 mcg/0.5mL dose or 50 mcg/0.25mL dose 1 completed Ela Castillo [place] & [place] 09/27/2023 08:17:41 COVID-19, mRNA, LNP-S, PF, 100 mcg/0.5mL dose or 50 mcg/0.25mL dose 1 completed Ela Castillo null, [place] [facility] & [place] 09/27/2023 08:17:41 MMR 5 completed Ela Castillo null, [place] - [facility] & [place] 04/03/2024 10:18:10 MMR 5 completed Ela Castillo null, [place] [facility] & [place] 04/03/2024 10:18:10 RSV, bivalent, protein subunit RSVpreF, diluent reconstituted, 0.5 mL, PF 4 completed Ela Castillo null, [place] - [facility] & [place] 04/03/2024 10:18:10 Tdap 3 completed Ela carcamo, [place] [facility] & [place] 04/03/2024 10:18:10 varicella 5 completed Ela Castillo null[place] [facility] & [place] 04/03/2024 10:18:10 Hep B, adult 5 completed Ela carcamo, [place] [facility] & [place] 04/03/2024 10:18:10 Influenza, split virus, quadrivalent, PF 3 completed Ela Castillo null[place] & [place] 04/03/2024 10:18:10 Rho(D) - Unspecified formulation 7 completed Isabel Woodsamer null[place] & [place] 01/21/2025 11:54:59 Rho(D) - Unspecified formulation 3 completed Isabel Rothamer null[place] & [place] 01/21/2025 11:59:29 Past Encounters Encounter ID Performer Location Encounter Start Date Encounter Closed Date Diagnosis/Indication Diagnosis SNOMED-CT Code Diagnosis ICD10 Code Diagnosis IMO Codes Diagnosis Note [id number] Nadia Drummond MD [address] [place] [address] [facility] [place] [address] 07/21/2022 13:18:28 07/21/2022 14:14:50 Morbid obesity 448464468 E66.01 Vitamin D deficiency 347 42041 E55.9 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 [place] [address] [place] [address] 09/27/2022 08:10:32 09/27/2022 11:44:36 Polycystic ovary syndrome 715227438 E28.2 Vitamin D deficiency 347 80867 E55.9 Hypothyroidism 36345264 E03.9 [id number] Nadia Drummond MD [address] [place] [address] [place] [address] 10/03/2022 13:00:09 10/03/2022 13:22:35 Upper respiratory infection 89079333 J06.9 History of bariatric surgical procedure 351002673 Z98.84 Anxiety 06613475 F41.9 Mood disorder 32493475 F 39 [id number] Cceilia Bowman, MATTHEW, ASSEMBLY WORKER-C, MACHINE STAKER ZZ [facility] [address] [facility] [place] [address] 10/05/2022 16:13:19 10/05/2022 17:31:36 Pain in throat 090250979 R07.0 Upper resp iratory infection 74165468 J06.9 [id number] Angelito Estrada DNP, DUONG, ASSEMBLY WORKER-C [facility] S[facility] [address] [place] [address] [address] [place] [address] 10/18/2022 11:38:25 10/18/2022 12:04:21 History of bariatric surgical procedure 524349949 Z98.84 History of gastrectomy 734474942 Z90.3 Patient is status post bariatric surgery and at increased risk for vitamin deficienci es and malnutriti on. Bariatric vitamin panel ordered today. Patient will be contacted to correct any vitamin deficienci es. Polycystic ovary syndrome 352514791 E28.2 Vitamin D deficiency 347 06720 E55.9 Acquired hypothyroidism 692048573 E03.9 Essential hypertension 58847554 I10 Hypothyroidism 34784935 E03.9 Mixed hyperlipidemia 267 449796 E78.2 Morbid obesity 206280402 E66.01 Intentiona l weight loss 231348950 R63.8 [id number] Angelito Estrada DNP, DUONG, ASSEMBLY WORKER-C [facility] n Bariatric s and Adv Surg [address] [place] [address] [address] [place] [address] 12/19/2022 11:38:41 12/19/2022 12:48:51 History of bariatric surgical procedure 911086693 Z98.84 History of gastrectomy 333026029 Z90.3 Patient is status post bariatric surgery and at increased risk for vitamin deficienci es and malnutriti on. Bariatric vitamin panel ordered today. Patient will be contacted to correct any vitamin deficienci es. Polycystic ovary syndrome 399029857 E28.2 Acquired hypothyroidism 476395884 E03.9 Essential hypertension 32364855 I10 Hypothyroidism 44132833 E03.9 Intentiona l weight loss 319007411 R63.8 Mixed hyperlipidemia 267 175988 E78.2 Morbid obesity 184868738 E66.01 [id number] Angelito Estrada DNP, MACHINE STAKER, ASSEMBLY WORKER-C [facility] S[facility] [address] [place] [address] [place] [address] 03/28/2023 12:54:58 03/28/2023 13:36:10 History of bariatric surgical procedure 902082527 Z98.84 Advised qid intake 50% protein 4146-3048 calories/d y less than 100 carbs/dy Long [...] will see dietitian today. History of gastrectomy 392982439 Z90.3 Patient is status post bariatric surgery and at increased risk for vitamin deficienci es and malnutriti on. Bariatric vitamin panel ordered today. Patient will be contacted to correct any vitamin deficienci es. Heartburn 67697168 R12 Hypothyroidism 98455486 E03.9 Mixed hyperlipidemia 267 918490 E78.2 Obesity 765308745 E66.9 Vitamin D deficiency 347 48636 E55.9 Polycystic ovary syndrome 874775650 E28.2 Acquired hypothyroidism 158780216 E03.9 Essential hypertension 76380766 I10 [id number] Angelito Estrada DNP, MACHINE STAKER, ASSEMBLY WORKER-C [facility] [address] [place] [address] [place] [address] 02/19/2024 10:07:23 02/19/2024 11:56:17 History of bariatric surgical procedure 123377873 Z98.84 Advised qid intake 50% protein 8261-5613 calories/d y less than 100 carbs/dy Long [...] see dietitian today. Intentiona l weight loss 831104019 R63.8 History of gastrectomy 037905705 Z90.3 Advised qid intake 50% protein 1396-7625 calories/d y (I did encourage her to [...] correct any vitamin deficienci es. Acquired hypothyroidism 812931687 E03.9 Essential hypertension 36587194 I10 Mixed hyperlipidemia 267 710849 E78.2 Fatigue 03082650 R53.[id number], LD [facility] [address] [place] [address] [place] [address] 02/19/2024 10:49:51 02/19/2024 12:53:58 Morbid obesity 376510029 E66.01 BMI 27.1 wt loss 78.8# Dietary ma nagjob surveillance 264705933 Z71.3 [id number] Nadia Drummond MD [facility] [address] [place] [address] [place] [address] 04/03/2024 10:13:26 04/03/2024 11:17:24 Adult health examination 582742430 Z00.00 Diabetes m ellitus screening 673782689 Z13.1 a1c WNL Hyperlipid emia screening 105870919 Z13.220 lipid panel WNL Gastroesop hageal reflux disease 326292180 K21.01 will discuss patient with bariatrics to see if EGD is an option to assess given her sx during and continued worsening reflux presently. Pt is on PPI and h2 batsheva, consider possible dose increase but will discuss case first. Iron defic iency anemia 31570952 D50.9 she may tolerate ritual post-patricia vitamins and will give these a try and she will give me an update Renal mass 096575817 N28 .89 CT from [facility] reviewed, was reviewed and closed by bariatrics discussed with pt, prefers to proceed with MRI at this time depression 58 138056 F53.0 doing well on sertraline [id number] Angelito Estrada, DNP, MACHINE STAKER, ASSEMBLY WORKER-C [facility] [address] [facility] [facility] [place] [address] [place] [address] 01/09/2025 13:18:37 01/09/2025 14:17:30 History of bariatric surgical procedure 228592472 Z98.84 Advised qid intake 50% protein 1241-3374 calories/d y less than 100 carbs/dyLo ng [...] I did michael. Intentiona l weight loss 088115990 R63.8 History of gastrectomy 510553453 Z90.3 Advised qid intake 50% protein 0058-1094 calories/d y less than 100 carbs/dyLo ng [...] to correct any vitamin deficienci es. At [facility] risk of nutritional deficit 841663952 Z91.89 Acquired hypothyroidism 602158116 E03.9 Essential hypertension 26186037 I10 Mixed hyperlipidemia 267 211428 E78.2 Heartburn 01863958 R12 We will follow-up in 1 month regarding symptom management . If symptoms persist will plan on getting at least upper GI with possible EGD with dilatation . Obesity 527595655 E66.9 we will follow up in 1 month. As long as she is doing well with no symptoms we will increase to 5 mg weekly. Patient was given realistic expectatio ns regarding medication regimen. [id number] Angelito Estrada, DNP, MACHINE STAKER, ASSEMBLY WORKER-C [facility] [address] [facility] [facility] [place] [address] [place] [address] 02/06/2025 14:54:48 02/06/2025 15:04:46 History of bariatric surgical procedure 231110952 Z98.84 013785 Advised qid intake 50% protein 2676-3342 calories/d y less than 100 carbs/dy Intentiona l weight loss 454024838 R63.8 History of gastrectomy 114215058 Z90.3 Advised qid intake 50% protein 1941-9756 calories/d y less than 100 carbs/dy At [facility] risk of nutritional deficit 436793755 Z91.89 Acquired hypothyroidism 148241729 E03.9 Essential hypertension 71253350 I10 Mixed hyperlipidemia 267 995736 E78.2 Obesity 846406059 E66.9 we will follow up in 1 [...] smartphone . Provider (Angelito Estrada DNP, DUONG, ASSEMBLY WORKER-C) location was [facility] [address] [place] [address], [address] [place]. Patient location: her workplace Patient gave [...] of hand washing and social distancing . [id number] Angelito Estrada DNP, DUONG, ASSEMBLY WORKER-C [facility] [address] [place] [address] [address] [place] [address] 03/06/2025 13:51:19 03/06/2025 14:15:10 History of bariatric surgical procedure 905463657 Z98.84 [id number] Advised qid intake 50% protein 6188-5767 calories/d y less than 100 carbs/dyTo days visit was performed with AUDIO ONLY per patient request. Patient could not be seen utilizing audio/vide o or in person due to patient being in [place], thus this visit was performed at patients request. Reason visit was not performed by video is due to patient not having access to smartphone . Provider (Angelito Estrada DNP, DUONG, ASSEMBLY WORKER-C) location was [facility] [address] [place] [address], [address] [place]. Patient location: work. Patient gave informed [...] social distancing . Intentiona l weight loss 937578526 R63.8 History of gastrectomy 640946394 Z90.3 Advised qid intake 50% protein 6652-0410 calories/d y less than 100 carbs/dy Follow-up with Repeat SILVIA in 3mth suggested .. At [facility] risk of nutritional deficit 078350137 Z91.89 Acquired hypothyroidism 824343885 E03.9 Obesity 646449104 E66.9 we will follow up in 1 month. I will increase to 7.5 mg weekly. Patient was given realistic expectatio ns regarding medication regimen. [id number] Angelito Estrada DNP, DUONG, ASSEMBLY WORKER-C [facility] [address] [facility] [place] [address] [place] [address] 04/04/2025 09:10:59 04/04/2025 10:05:21 History of bariatric surgical procedure 235872677 Z98.84 [id number] Advised qid intake 50% protein 0498-5283 calories/d y less than 100 carbs/dyTo days visit was performed with AUDIO ONLY per patient request. Patient could not be seen utilizing audio/vide o or in person due to patient being in [place], thus this visit was performed at patients request. Reason visit was not performed by video is due to patient not having access to smartphone . Provider (Angelito Estrada, DNP, MACHINE STAKER, ASSEMBLY WORKER-C) location was [facility] [address] [place] [address], [address] [place]. Patient location: work. Patient gave informed [...] hand washing and social distancing . Obesity 113535725 E66.9 we will follow up in 1 month. I will increase to 10 mg weekly. Patient was given realistic expectatio ns regarding medication regimen. Nausea 433762390 R11.0 Health Concerns Section Related Observation LastModified by Organization Detai ls LastModified Time None Recorded Concern Status LastModified by Organization Details LastModified Time None Recorded Advance Directives Directive N: Payers Insurance Date Sequence Insurance Name Policy Number Policy Wilson Covered Member ID Wilson Member ID Guarantor Name 07/30/2019 1 [place] [id number] Jeremiah Newell Deal [id number] Pam Yeni Deal 05/02/2025 1 [place] [id number] Omkar Gallego Deal [id number] Pam Jaime Deal 01/24/2022 2 [facility] (MEDICAID REPLACEMENT - HMO) KENN Newell Deal [id number] Pam Jaime Deal 04/08/2021 2 MEDICAID-[facility] CHOICES - FFS/TRADITIONA L Pam Newell Deal [id number] Pam Jaime Deal Notes Date Note Type [...] on current dose of zoloft managed by fur glosser. Safety: pt wears seat belt, has smoke [...] 10.4. She had a CT ab/pelvis at [facility] on 02/16 that showed a possible area of the left kidney that radiology recommended further imaging, MRI or US. Pt would like to proceed with MRI. Nadia Drummond MD [address], [place], [address], [facility] & [place] 04/03/2024 13:07:35 01/09/2025 text/html ROS as noted [...] Rate = 1468 kilo calories Angelito Estrada, MATTHEW, MACHINE STAKER, ASSEMBLY WORKER-C [address], [place], [address], [facility] & [place] 01/09/2025 14:21:06 02/06/2025 text/html ROS as noted [...] a telehealth appt Angelito Estrada DNP, APRN, ASSEMBLY WORKER-C [address] [place], [address], [facility] 02/06/2025 15:12:51 03/06/2025 text/html ROS as noted [...] a telehealth appt Angelito Estrada DNP, APRN, ASSEMBLY WORKER-C [address] [place], [address], [facility] 03/06/2025 14:12:43 04/04/2025 text/html ROS as noted [...] being a telehealth visit Angelito Estrada, DNP, MACHINE STAKER, ASSEMBLY WORKER-C [address] [facility], [place], [address], [facility] - [place] & [place] 04/04/2025 09:27:21 OBGyn Episode No OBEpisode recorded.
--- OUTSIDE RECORDS SUMMARY | 2025-09-15 12:29 | XMS_ITS | Encounter Summary ---
Author Organization [facility] Address [address] [place] [id number] Care Team Providers Care Tattoo Technician Name Role Phone Nadia Drummond MD Primary Care Provider [phone] Encounter Details Date Type Department Care Team (Late st Contact Info) Description 07/24/2025 Telephone [facility] ENDOCRINOLOGY [address] [place] [address] Cheri Harden DO [address] [place], [place] [id number] Social History Tobacco Use Types Packs/Day Years [...] EDT TEREZA visit needed with me or NEUROPHYSIOLOGIST/PA (this week or next). Please schedule. * [...] these labs. She had labs done at [facility]. Her OB is Dr. Marie. She would like a call back. documented in this encounter Plan of Treatment Upcoming Encounters Date Type Department Care Team (Late st Contact Info) Description 11/03/2025 10:30 AM EST Office Visit [facility] ENDOCRINOLOGY [address] [address] Cheri Harden, DO [address] [address] documented as of this encounter Visit Diagnoses Not on filedocumented in this encounter Care Teams Tattoo Technician Relationship Specialty Start Date End Date Nadia Drummond MD PCP - General Family Medicine 07/15/20 documented as of this encounter
--- OUTSIDE RECORDS SUMMARY | 2025-09-15 12:29 | XMS_ITS | Clinical Summary ---
Author Organization [facility] Address [address] [place] [address] Care Team Providers Care Nursing Home Director Name Role Phone Nadia Drummond MD Primary Care Provider [phone] Allergies Active Allergy Reactions Criticality Noted Date [...] Description 07/28/2025 11:15 AM EDT Office Visit [facility] ENDOCRINOLOGY [address] [place] [address] Cheri Harden DO Acquired hypothyroidism (Primary Dx); Solitary thyroid nodule 07/28/2025 Travel 07/24/2025 Telephone [facility] ENDOCR[facility] [address] [place] [address] Cheri Harden DO from Last 3 Months [...] Caitlin Obesity Mother Caitlin Obesity Paternal Grandmother D[place]den Relation Name Status Comments Brother Alive Father Anam Alive Maternal Grandfather Aren Maternal Grandmother Yvette Mother Caitlin Alive Paternal Grandfather Paternal Grandmother [place] Social History Tobacco Use Types Packs/Day Years [...] 10:30 AM EST Office Visit [facility] ENDOCRIN[facility] [address] [place] [address] Cheri Harden, [address] [place] [address] Health Maintenance Due Date Last Done Comments [...] 02/16/2022 3:08 PM EDT Performed at: - [facility] [address] [place] [id number] Debt Recovery Officer: Guillermo Choi PhD, Phone: [phone] Patient Fasting: N Charla Vegas PA-C LAB BLOOD ORDERABLES Final Result [facility] ([facility]) [address] [place] [address], [facility] [address] [place] [address], from Last 3 Months or Most Recently Relevant to Health Maintenance Insurance [facility] [place] [id number] [facility] PPO Care Teams Nursing Home Director Relationship Specialty Start Date End Date Nadia Drummond MD PCP - General Family Medicine 07/15/20
--- OUTSIDE RECORDS SUMMARY | 2025-09-15 12:29 | XMS_ITS | Clinical Summary ---
Author Organization [facility] Address [address] [place] [address] Care Team Providers Care Assembler And Tester Electronics Name Role Phone Nadia Goodson MD Primary Care Provider [phone] Allergies Active Allergy Reactions Criticality Noted Date [...] Recorded Patient Health Questionnaire-2 Score 0 04/08/2025 Temple Depression Scale Answer Date Recorded Temple Depression Scale Total 0 02/23/2024 The thought [...] Visit Obstetrics & Gynecology [address] [place] [address] Tres Ybarra MD [address] [place] [address] Health Maintenance Due Date Last Done Comments [facility]-Infant/Child/Adol SDOH Screenings 1993 [facility]- SDOH Screenings 2011 [facility]-Adult SDOH Screenings 2011 [facility]-Hepatitis B Vaccines (1 of 3 - 19+ 3-dose series) 2012 [facility]-Varicella Vaccines (2 of 2 - 13+ 2-dose series) 05/27/2015 04/29/2015 HPV Vaccines (1 - 3-dose SCDM series) 2020 [facility]CE-TMSGP-70 Vaccine (3 - Moderna risk series) 01/06/2021 [...] Pap, Source Cx/Vagina 02/13/2025 12:50 PM EDT [facility]) EER Referred ThinPrep Pap and HPV See Note 02/13/2025 12:50 PM EDT [facility] ([facility]) PAP, THINPREP Normal 02/13/2025 12:50 PM EDT [facility] ([facility]) High Risk HPV Normal 02/13/2025 12:50 PM EDT [facility] ([facility]) Swab Vaginal and cervical cytologic material / Unknown Non-blood Collection / Unknown 02/06/2025 8:23 AM EDT 02/06/2025 12:54 PM EDT Narrative [facility] ([facility]) - 02/13/2025 12:50 PM EDT Authorized individuals can access the [employer] Enhanced Report with an [employer] Connect account using the following link. Your local lab can assist you in obtaining the patient report if you don't have a Connect account. [email or web address] Performed By: [facility] [address] [place] [address] Flooring Installer: Thompson Correa MD, PhD CLIA Number: [id number] SPECIMEN PART A. Cervical, Endocervical, Vaginal, ThinPrep Pap (Table Filler) CYTOLOGY HX Date of Last Menstrual Period: N FINAL DIAGNOSIS INTERPRETATION: Negative for Intraepithelial Lesion or Malignancy. SPECIMEN ADEQUACY:Satisfactory for evaluation. Endocervical/transformation zone component present. Electronically Signed Out : ctmxc Performed by: [facility] [address] [place] [address] [place] [address] Desire Alvarez MD, HR-HPV: Negative Test performed by the FDA-approved Hologic (Gen-Probe) APTIMA HPV test, which detects HPV genotypes: 16, 18, 31, 33, 35, 39, 45, 51, 52, 56, 58, 59, 66, and 68. This assay has been cleared for the specimen types listed below. Other specimen types have not been validated for this assay. -Clinician-collected ThinPrep Pap specimens. Performed by: [facility] [address] [place] [address] [place] [address] Desire Alvarez MD, Tres Ybarra MD LAB REF LAB BLOOD AND FLUID ORD Final Result [facility] ([facility]) [address] [place] [phone] * HIV 1 & 2 Antibody/Antigen Screen (05/29/2023 10:20 AM EDT) HIV 1 & 2 Antibody/Antigen Screen Non Reactive Non Reactive 05/29/2023 2:06 PM EDT [facility] Comment:Screening for HIV 1 & 2 antibodies, and P24 antigen is NONREACTIVE. No confirmatory testing is required. Blood Venous blood specimen / Unknown Venipuncture / Unknown 05/29/2023 10:20 AM EDT 05/29/2023 1:01 PM EDT Result Mary Ybarra MD LAB BLOOD ORDERABLES Final Resu lt Performing Organization Address City/[facility]/ZIP Co de Phone Number [facility] [address] [place] [address] * Hepatitis C Antibody (05/29/2023 10:20 AM EDT) Hepatitis C Antibody Negative Negative 05/29/2023 2:02 PM EDT [facility] Blood Venous blood specimen / Unknown Venipuncture / Unknown 05/29/2023 10:20 AM EDT 05/29/2023 1:01 PM EDT Result Mary Ybarra MD LAB BLOOD ORDERABLES Final Resu lt Performing Organization Address City/[facility] Co de Phone Number [facility] [address] [place] [address] from Last 3 Months or Most Recently Relevant to Health Maintenance Insurance [facility] Advance Directives * Full Code (Latest Code Status on File) Date Activated Date Inactivated Comments 08/09/2021 8:28 PM 08/10/2021 1:42 PM Question Answer Comments Patient has decision-making capacity? Yes * Full Code Date Activated Date Inactivated Comments 08/08/2021 3:47 AM 08/09/2021 12:51 AM Question Answer Comments Patient has decision-making capacity? Yes Care Teams Assembler And Tester Electronics Relationship Specialty Start Date End Date Nadia Goodson MD [address] [place] [address] PCP - General 01/17/23
[2025-09-15 13:42] LABS: Calcium 8.6 mg/dl (8.4-10.2); Iron 50 ug/dL (37-170)
[2025-09-15 13:53] LABS: Total Iron Binding Capacity 504 ug/dL (265-497)
[2025-09-15 14:14] LABS: Thyroid Stimulating Hormone 1.44 uIU/mL (0.465-4.68)
[2025-09-15 14:18] LABS: Ferritin 5.31 ng/ml (6.24-137)
[2025-09-15 14:33] LABS: Vitamin B12 642 pg/mL (239-931)
[2025-09-15 14:53] LABS: Folate 16.30 ng/mL
[2025-09-16 07:26] LABS: Transferrin 418 mg/dL (192-364)
== END 2025-09-15 23:59 | disposition home or self-care (01) ==
LOC: LAB 12:27
PROVIDERS: PCP Family Medicine; Visit Provider Obstetrics & Gynecology
DX: O21.0 Mild hyperemesis gravidarum (principal); Z90.3 Acquired absence of stomach [part of]; Z3A.00 Weeks of gestation of pregnancy not specified
CPT/HCPCS: 36415; 82310; 82607; 82728; 82746; 83540; 83550; 84443; 84466; 84590

== ENCOUNTER 2025-09-25 13:48 | Outpatient (CLI) | payer BC, SELFPAY ==
[2025-09-25 14:05] VITALS: BP 117/60; PULSE 76; RESP 18; O2SAT 100
[2025-09-25] MEDS: IRON SUCROSE COMPLEX 200 MG in 0.9 % SODIUM CHLORIDE 100 ML 220 MG IV (14:05)
[2025-09-25] MEDS: SODIUM CHLORIDE 0.9% 10ML FLUSH SYRINGE 10 ML IV (14:14)
[2025-09-25 14:45] VITALS: BP 128/71; PULSE 72; O2SAT 99
== END 2025-09-25 23:59 | disposition home or self-care (01) ==
LOC: INF 13:51
PROVIDERS: PCP Family Medicine; Visit Provider Obstetrics & Gynecology
DX: O99.019 Anemia complicating pregnancy, unspecified trimester (principal); Z3A.00 Weeks of gestation of pregnancy not specified
CPT/HCPCS: 96365; J1756

== ENCOUNTER 2025-10-01 13:58 | Outpatient (CLI) | payer BC, SELFPAY ==
--- OUTSIDE RECORDS SUMMARY | 2021-05-03 11:23 | XMS_ITS | Encounter Summary ---
[facility] [address] [place] [address] Care Team Providers Care Slurry Control Operator Helper Name Role Phone Nadia Drummond MD Primary Care Provider [phone] Reason for Visit * Diagnostic Imaging (Routine) - Closed Specialty Diagnoses / Procedures Referred By Contac t Referred To Contact Radiology Diagnoses Hypothyroidism, unspecified type Procedures US Thyroid Cheri Harden DO [address] [place] [address] Phone: tel: fax: [facility] [address] [place] [address] Phone: tel: fax: Referral ID Status Reason Start Date Expiration Date Visits Re quested Visits Authorized [id number] Closed 05/03/2021 05/03/2022 1 1 Encounter Details Date Type Department Care Team (Late st Contact Info) Description 05/03/2021 12:23 PM EDT Hospital Encounter [facility] [address] [place] [address] Social History Tobacco Use Types [...] Description 11/03/2025 10:30 AM EST Office Visit [facility] [address] [facility] [address] [place] [address] Cheri Harden, [address] [facility] [address] [place] [address] documented as of this encounter Procedures Procedure [...] documented as of this encounter Care Teams Slurry Control Operator Helper Relationship Specialty Start Date End Date Nadia Drummond MD PCP - General Family Medicine 07/15/20 documented as of this encounter
--- OUTSIDE RECORDS SUMMARY | 2022-10-13 09:42 | XMS_ITS | Encounter Summary ---
[facility] Address [address] [place] [address] Care Team Providers Care Metal Punch Press Operator Name Role Phone Nadia Drummond MD Primary Care Provider [phone] Reason for Visit * Diagnostic Imaging (Routine) - Closed Specialty Diagnoses / Procedures Referred By Idalia caruso Referred To Contact Radiology Diagnoses Solitary thyroid nodule Procedures US Thyroid Cheri Harden DO 3084 [facility]NN[facility] J[facility] [address] [place] [address] Phone: tel: fax: Referral ID Status Reason Start Date Expiration Date Visits Re quested Visits Authorized [id number] Closed 10/13/2022 10/13/2023 1 1 Encounter Details Date Type Department Care Team (Late st Contact Info) Description 10/13/2022 9:42 AM EST Hospital Encounter [facility] [address] [facility] [address] [place] [phone] Social History Tobacco Use Types Packs/Day [...] Description 11/03/2025 10:30 AM EST Office Visit [facility] ENDOCRINOLOGY 3084 [facility] [address] [place] [address] Cheri Harden, DO [address] [address] documented as of this encounter Procedures Procedure [...] documented as of this encounter Care Teams Metal Punch Press Operator Relationship Specialty Start Date End Date Nadia Drummond MD PCP - General Family Medicine 07/15/20 documented as of this encounter
--- OUTSIDE RECORDS SUMMARY | 2025-10-01 14:01 | XMS_ITS | Clinical Summary ---
Author Organization [employer] ([place], [place], [place], [place], [place]) Address [address] [place] [address] Care Team Providers Care Crop Duster Helper Name Role Phone Unavailable Primary Care [...]
--- OUTSIDE RECORDS SUMMARY | 2025-10-01 14:01 | XMS_ITS | Encounter Summary ---
Author Organization [facility] ([place], [place], [place], [place], [place]) Address [address] [place] [address] Care Team Providers Care International Trade Teacher Name Role Phone Unavailable Primary Care Provider Unavailabl e Encounter Details Date Type Department Care Team (Late st Contact Info) Description 09/24/2019 Transcribed Document [facility] Family Medicine [address] [place] [address] ProviderLeón MD [address] [place] [address] Social History Tobacco Use Types [...] León Joseph MD - 09/24/2019 8:33 AM PIPING DESIGNER Pain Assessment Entered On: 09/24/2019 9:40 EST Performed On: 09/24/2019 9:40 EST by GENTRY CLARK RN Intervention Information: ibuprofen Performed by GENTRY CLARK RN on 09/24/2019 08:39:00 EST ibuprofen,600mg Oral Pain Assessment Pain Assessment : Follow-up assessment Pain Improved by Intervention : Yes GENTRY CLARK, ZO - 09/24/2019 9:40 EST Electronically signed by Errol Hess Conversion Automatic Casting Machine Operator Cerner at 02/19/2023 9:41 AM CDT documented in this encounter Plan of Treatment Not on file documented as of this encounter Visit Diagnoses Not on filedocumented in this encounter
--- OUTSIDE RECORDS SUMMARY | 2025-10-01 14:01 | XMS_ITS | Encounter Summary ---
Author Organization [facility] ([place], [place], [place], [place], [place]) Address [address] [place] [address] Care Team Providers Care Craps Manager Name Role Phone Unavailable Primary Care Provider Unavailabl e Encounter Details Date Type Department Care Team (Late st Contact Info) Description 11/25/2020 Transcribed Document [facility] Radiology [address] [place] [address] Virgie Armendariz MD One [facility] Dept of Emergency Medicine [place], [place] [id number] Social History Tobacco Use Types Packs/Day Years [...] at maximum was 10 /10. , just FUNERAL DIRECTOR AND EMBALMER . The degree at present is moderate, [...] EST Height Source Stated Height Entry Format [place] Height/Length, ALBANIAN (ft) 5 ft Height/Length ALBANIAN 5 Inch CLINICALHEIGHT 165.1 cm Maxie Body Weight 56.59 kg Weight Source, ED Critical estimated dosing weight Weight Entry Format [place] Weight German lb 220 lb CLINICALWEIGHT 100 kg Body [...] % 26.1 % Lymph # 2.37 x10(3)/uL Douglas % 6.1 % Douglas # 0.55 K/uL Eos % 1.3 % Eos # 0.12 x10(3)/uL Baso % 0.3 % Baso # 0.03 x10(3)/uL Slide Review No IG# 0.03 x10(3)/uL IG% 0.30 % . Radiology results: Radiology Results (Last 48 hours) [id number] -- 11/25/2020 10:52 CT Head WO (11/25/2020 [...] instructions. Notes: I certify that the Physician Plastic Technician performed the services as delegated. I agree with the assessment, treatment plan and disposition of the patient as recorded by the Physician Plastic Technician. This document was created with ePatient[employer]inder dictation software and unidentified evp of products & co founder errors may be present.. . documented in this encounter Plan of Treatment Not on file documented as of this encounter Visit Diagnoses Not on filedocumented in this encounter
--- OUTSIDE RECORDS SUMMARY | 2025-10-01 14:01 | XMS_ITS | Referral Summary ---
Author Organization [employer] ([place], [place], [place], [place], [place]) Address [address] [place] [address] Care Team Providers Care Letter Carrier Name Role Phone Unavailable Primary Care Provider [...]
--- OUTSIDE RECORDS SUMMARY | 2025-10-01 14:01 | XMS_ITS | Clinical Summary ---
Author Organization [facility] Address [address] [place] [address] Care Team Providers Care Cotton Classer Aide Name Role Phone Nadia Goodson MD Primary Care Provider [phone] Allergies Active Allergy Reactions Criticality Noted Date [...] Recorded Patient Health Questionnaire-2 Score 0 04/08/2025 Kirkwood Depression Scale Answer Date Recorded [place] Depression Scale Total 0 02/23/2024 The thought [...] Visit Obstetrics & Gynecology [address] [place] [address] Tres Ybarra MD [address] [place] [address] Health Maintenance Due Date Last Done Comments [facility]-Infant/Child/Adol SDOH Screenings 1993 [facility]- SDOH Screenings 2011 [facility]-Adult SDOH Screenings 2011 [facility]-Hepatitis B Vaccines (1 of 3 - 19+ 3-dose series) 2012 [facility]-Varicella Vaccines (2 of 2 - 13+ 2-dose series) 05/27/2015 04/29/2015 HPV Vaccines (1 - 3-dose SCDM series) 2020 [id number]-65 Vaccine (3 - Moderna risk series) 01/06/2021 [...] Pap, Source Cx/Vagina 02/13/2025 12:50 PM EDT [facility]) EER Referred ThinPrep Pap and HPV See Note 02/13/2025 12:50 PM EDT [facility] ([facility]) PAP, THINPREP Normal 02/13/2025 12:50 PM EDT [facility] ([facility]) High Risk HPV Normal 02/13/2025 12:50 PM EDT [facility]) Swab Vaginal and cervical cytologic material / Unknown Non-blood Collection / Unknown 02/06/2025 8:23 AM EDT 02/06/2025 12:54 PM EDT Narrative [facility] ([facility]) - 02/13/2025 12:50 PM EDT Authorized individuals can access the [employer] Enhanced Report with an [employer] Connect account using the following link. Your local lab can assist you in obtaining the patient report if you don't have a Connect account. [email or web address] Performed By: [facility] [address] [place] [address] Provider Engagement Executive: Thompson Correa MD, PhD CLIA Number: [id number] SPECIMEN PART A. Cervical, Endocervical, Vaginal, ThinPrep Pap (Mailing Section Clerk) CYTOLOGY HX Date of Last Menstrual Period: N FINAL DIAGNOSIS INTERPRETATION: Negative for Intraepithelial Lesion or Malignancy. SPECIMEN ADEQUACY:Satisfactory for evaluation. Endocervical/transformation zone component present. Electronically Signed Out : [email or web address] Performed by: [email or web address] [address] [place] [address] [place] [address] Desire Alvarez MD, HR-HPV: Negative Test performed by the FDA-approved Hologic (Gen-Probe) APTIMA HPV test, which detects HPV genotypes: 16, 18, 31, 33, 35, 39, 45, 51, 52, 56, 58, 59, 66, and 68. This assay has been cleared for the specimen types listed below. Other specimen types have not been validated for this assay. -Clinician-collected ThinPrep Pap specimens. Performed by: [email or web address] [address] [place] [address] [place] [address] Desire Alvarez MD, Tres Ybarra MD LAB REF LAB BLOOD AND FLUID ORD Final Result [facility] ([facility]) [address] [place] [phone] * HIV 1 & 2 Antibody/Antigen Screen (05/29/2023 10:20 AM EDT) HIV 1 & 2 Antibody/Antigen Screen Non Reactive Non Reactive 05/29/2023 2:06 PM EDT [facility] Comment:Screening for HIV 1 & 2 antibodies, and P24 antigen is NONREACTIVE. No confirmatory testing is required. Blood Venous blood specimen / Unknown Venipuncture / Unknown 05/29/2023 10:20 AM EDT 05/29/2023 1:01 PM EDT Result Mary Ybarra MD LAB BLOOD ORDERABLES Final Resu lt Performing Organization Address City/[facility]/ZIP Co de Phone Number [facility] [address] [place] [address] * Hepatitis C Antibody (05/29/2023 10:20 AM EDT) Hepatitis C Antibody Negative Negative 05/29/2023 2:02 PM EDT [facility] Blood Venous blood specimen / Unknown Venipuncture / Unknown 05/29/2023 10:20 AM EDT 05/29/2023 1:01 PM EDT Result Mary Ybarra MD LAB BLOOD ORDERABLES Final Resu lt Performing Organization Address City/[facility] Co de Phone Number [facility] [address] [place] [address] from Last 3 Months or Most Recently Relevant to Health Maintenance Insurance [facility] Advance Directives * Full Code (Latest Code Status on File) Date Activated Date Inactivated Comments 08/09/2021 8:28 PM 08/10/2021 1:42 PM Question Answer Comments Patient has decision-making capacity? Yes * Full Code Date Activated Date Inactivated Comments 08/08/2021 3:47 AM 08/09/2021 12:51 AM Question Answer Comments Patient has decision-making capacity? Yes Care Teams Cotton Classer Aide Relationship Specialty Start Date End Date Nadia Goodson MD [address] [place] [address] PCP - General 01/17/23
--- OUTSIDE RECORDS SUMMARY | 2025-10-01 14:01 | XMS_ITS | Encounter Summary ---
Author Organization [employer] ([place], [place], [place], [place], [place]) Address [address] [place] [address] Care Team Providers Care Operator Helper Name Role Phone Unavailable Primary Care Provider Unavailabl e Encounter Details Date Type Department Care Team (Late st Contact Info) Description 09/24/2019 Transcribed Document [facility] Family Medicine [address] [place] [address] ProviderLeón MD [address] [place] [address] Social History Tobacco Use Types [...] - Historical ProviderMD - 09/24/2019 5:36 AM EMERGENCY MEDICAL SERVICE COORDINATOR Tell Suicide Severity Rating Scale (C-SSRS) Entered On: 09/24/2019 6:25 EST Performed On: 09/24/2019 6:24 EST by RENETTA NIXON RN Tell Suicide Severity Rating Scale (C-SSRS) CSSRS Past [...]
--- OUTSIDE RECORDS SUMMARY | 2025-10-01 14:01 | XMS_ITS | Encounter Summary ---
Author Organization [facility] ([place], [place], [place], [place], [place]) Address [address] [place] [address] Care Team Providers Care Research Anthropologist Name Role Phone Unavailable Primary Care Provider Unavailabl e Encounter Details Date Type Department Care Team (Late st Contact Info) Description 09/24/2019 Transcribed Document [facility] Family Medicine [address] [place] [address] ProviderLeón MD [address] [place] [address] Social History Tobacco Use Types [...] León Joseph MD - 09/24/2019 5:36 AM CUSTODIAL MANAGER ED Assessment Entered On: 09/24/2019 6:25 EST Performed On: 09/24/2019 6:24 EST by RENETTA NIXON RN ED Quick Look Assessment Level of Consciousness : Alert, Awake RENETTA NIXON RN - 09/24/2019 6:24 EST ED General-Functional Assess Information Obtained From : Patient Communication Barrier : None Primary Language : Bengali Any Spiritual/Cultural Needs or Requests : No [...] RN) EENT Assessment EENT Assessment WDL : [facility] HUSSAINRENETTA RN - 09/24/2019 6:24 EST Cardiovascular ASMT, ED Cardiovascular Assessment WDL : [facility] RENETTA NIXON RN - 09/24/2019 6:24 EST Pulses Grid Radial Pulse, Left : 2+ normal Radial Pulse, Right : 2+ normal RENETTA NIXON RN - 09/24/2019 6:24 EST Respiratory Respiratory Assessment WDL : [facility] RENETTA NIXON RN - 09/24/2019 6:24 EST Breath Sounds Assessment Grid All Lobes Breath Sounds : Clear RENETTA NIXON RN - 09/24/2019 6:24 EST Gastrointestinal ED Gastrointestinal Assessment WDL : [facility] with exceptions Gastrointestinal Symptoms : Abdominal pain RENETTA NIXON RN - 09/24/2019 6:24 EST Genitourinary Assessment, ED Genitourinary Assessment WDL : [facility] with exceptions Genitourinary Symptoms : Vaginal bleeding RENETTA NXION RN - 09/24/2019 6:24 EST Musculoskeletal Musculoskeletal Assessment WDL : [facility] RENETTA NIXON RN - 09/24/2019 6:24 EST Integumentary Assessment Integumentary Assessment WDL : [facility] RENETTA NIXON RN - 09/24/2019 6:24 EST Neurologic ASMT, ED Neurologic Assessment WDL : [facility] RENETTA NIXON RN - 09/24/2019 6:24 EST Electronically signed by Jimena [facility] Conversion Job Honer Cerner at 02/19/2023 9:43 AM CDT documented in this encounter Plan of Treatment Not on file documented as of this encounter Visit Diagnoses Not on filedocumented in this encounter
--- OUTSIDE RECORDS SUMMARY | 2025-10-01 14:01 | XMS_ITS | Encounter Summary ---
Author Organization [employer] ([place], [place], [place], [place], [place]) Address [address] [place] [address] Care Team Providers Care Track Welder Name Role Phone Unavailable Primary Care Provider Unavailabl e Encounter Details Date Type Department Care Team (Late st Contact Info) Description 11/25/2020 Transcribed Document [facility] [place] Family Medicine [address] [place] [address] ProviderLeón MD [address] [place] [address] Social History Tobacco Use Types [...] - León ProviderMD - 11/25/2020 10:52 AM LIVESTOCK LABORER ED Triage Entered On: 11/25/2020 11:06 EST [...] : 3 - Urgent Tracking Group : [facility] ALBERTO CHAVES RN - 11/25/2020 11:03 [...] 11/25/2020 11:06:17 EST) Problems(Active) Asthma (SNOMED CT :315088399 ) Name of Problem: Asthma ; Recorder: RAJNI RAMIREZ RN; Confirmation: Confirmed ; Classification: Medical ; Code: [id number] ; Contributor System: PowerChart ; Last Updated: 09/01/2018 18:05 EDT ; Life Cycle Date: 09/01/2018 ; Life Cycle Status: Active ; Vocabulary: SNOMED CT Hypothyroid (SNOMED CT :90623020 ) Name of Problem: Hypothyroid ; Recorder: RAJNI RAMIREZ RN; Confirmation: Confirmed ; Classification: Medical ; Code: [id number] ; Contributor System: PowerChart ; Last Updated: 09/01/2018 18:05 EDT ; Life Cycle Date: 09/01/2018 ; Life Cycle Status: Active ; Vocabulary: SNOMED CT PCOS (polycystic ovarian syndrome) (SNOMED CT :893102534 ) Name of Problem: PCOS (polycystic ovarian syndrome) ; Recorder: RAJNI RAMIREZ RN; Confirmation: Confirmed ; Classification: Medical ; Code: 672247286 ; Contributor System: KDS ; Last Updated: 09/01/2018 18:05 EDT ; Life Cycle Date: 09/01/2018 ; Life Cycle Status: Active ; Vocabulary: SNOMED CT Diagnoses(Active) Headache Date: 11/25/2020 ; Diagnosis Type: Reason For Visit ; Confirmation: Complaint of ; Clinical Dx: Headache ; Classification: Medical ; Clinical Service: Emergency medicine ; Code: PNED ; Probability: 0 ; Diagnosis Code: [id number] ED Height and Weight Height Source : Stated Height Entry Format : [place] Height, Feet : 5 ft(Converted to: 152 cm, 60 Inch) Height, Inches : 5 Inch(Converted to: 0 ft 5 Inch, 12.70 cm) Clinical Height : 165.1 cm Weight Source, ED : Critical estimated dosing weight Weight Entry Format : [place] Weight, Pounds : 220 lb Clinical Dosing Weight : 100 kg Body Surface Area (BSA) : 2.06 m2 Body Mass Index : 36.7 kg/m2 (HI) [place] Body Weight (IBW) : 56.59 kg ALBERTO [...]
--- OUTSIDE RECORDS SUMMARY | 2025-10-01 14:01 | XMS_ITS | Encounter Summary ---
Author Organization Healthcare Address [address] [place] [address] Care Team Providers Care Director Of Business Services Name Role Phone Pcp, No Primary Care Provider Nadia Todd MD Primary Care Provider [phone] Pcp, No Primary Care Provider Nadia Todd MD Primary Care Provider [phone] Encounter Details Date Type Department Care Team (Late st Contact Info) Description 10/31/2019 [facility] Encounter Historical [facility] [address] [place] [address] Provider, [address] [address] Social History Tobacco Use Types [...] EDT Procedure Visit Obstetrics & Gynecology [address] [place] [address] Tres Ybarra MD [address] [place] [address] documented as of this encounter Visit Diagnoses Not on filedocumented in this encounter Care Teams Director Of Business Services Relationship Specialty Start Date End Date Pcp, No [address] [place] [address] PCP - General 08/07/21 08/08/21 Nadia Goodson MD [address] [place] [address] PCP - General 08/09/21 08/09/21 Pcp, No [address] [place] [address] PCP - General Family Medicine 07/08/22 01/16/23 Nadia Goodson MD [address] [place] [address] PCP - General 01/17/23 documented as of this encounter
--- OUTSIDE RECORDS SUMMARY | 2025-10-01 14:01 | XMS_ITS | Encounter Summary ---
Author Organization Healthcare Address [address] [id number] Care Team Providers Care Surveyor Helper Name Role Phone Pcp, No Primary Care Provider Nadia Todd MD Primary Care Provider [phone] Pcp, No Primary Care Provider Nadia Todd MD Primary Care Provider [phone] Encounter Details Date Type Department Care Team (Late st Contact Info) Description 11/05/2019 [facility] OT[facility] Historical OTTR [address] [place] [address] Marla Sin, [id number] [address] [place] [address] Social History Tobacco Use Types Packs/Day Years [...] EDT Procedure Visit Obstetrics & Gynecology [address] [place] [address] Tres Ybarra MD [address] [place] [address] documented as of this encounter Visit Diagnoses Not on filedocumented in this encounter Care Teams Surveyor Helper Relationship Specialty Start Date End Date Pcp, No [address] [place] [address] PCP - General 08/07/21 08/08/21 Nadia Goodson MD [address] [place], [place] [id number] PCP - General 08/09/21 08/09/21 Pcp, No [address] [place] [address] PCP - General Family Medicine 07/08/22 01/16/23 Nadia Goodson MD [address] [place] [address] PCP - General 01/17/23 documented as of this encounter
--- OUTSIDE RECORDS SUMMARY | 2025-10-01 14:01 | XMS_ITS | Encounter Summary ---
Author Organization [employer] ([place], [place], [place], [place], [place]) Address [address] [place] [address] Care Team Providers Care Oil Developer Name Role Phone Unavailable Primary Care Provider Unavailabl e Encounter Details Date Type Department Care Team (Late st Contact Info) Description 09/24/2019 Transcribed Document [facility] [place] [address] [place] [address] ProviderLeón MD [address] [place] [address] Social History Tobacco Use Types [...] León Joseph MD - 09/24/2019 10:05 [place] [address] PAM FENG :1995 Visit Time:09/24/2019 Your Visit [...] fever and or persistent vomiting. Where: [address] [facility] [address] [place] [address]- Business (1) Allergies amoxicillin (C/O - vomiting) [...] range between ( 1.0 and 7.0 ) [place] #: 0.60 K/uL -- Normal range between ( 0.24 and 0.82 ) Eos #: 0.32 K/uL -- Normal range between ( 0.04 and 0.54 ) [place] %: 7.9 % -- Normal range between [...] ) Urine Bilirubin Dipstick: Negative Urine Specific [place]: 1.007 -- Normal range between ( 1.005 [...] 10/23/2006 Document Revised: 11/24/2017 Document Reviewed: 11/24/2017 NPC III Interactive Patient Education ?? 2019 [employer]. Emergency Awareness and Preventative Care STROKE is [...] Assistance with quitting is available by contacting 2-055-VWNS-NOW. This is a free resource providing counseling, [...] was given the opportunity to ask questions. Patient/Patient Services Coordinator Name: Patient/Patient Services Coordinator Signature: Relationship to Patient: Clinician/Hospital Patient Services Coordinator Signature: Please Provide a Telephone Number Where You Can Be Reached: Is it Permissible To Leave a Message? Date: Electronically signed by Jimena, [facility] Conversion Hand Umbrella Tipper Kimberly at 02/19/2023 9:54 AM CDT documented in this encounter Plan of Treatment Not on file documented as of this encounter Visit Diagnoses Not on filedocumented in this encounter
--- OUTSIDE RECORDS SUMMARY | 2025-10-01 14:01 | XMS_ITS | Encounter Summary ---
Author Organization [employer] ([place], [place], [place], [place], [place]) Address [address] [place] [address] Care Team Providers Care Floor Worker Transfer [place] Name Role Phone Unavailable Primary Care Provider Unavailabl e Encounter Details Date Type Department Care Team (Late st Contact Info) Description 09/24/2019 Transcribed Document [facility] [place] [facility] [place] [address] ProviderLeón MD [facility] [place] [address] Social History Tobacco Use Types [...] - León ProviderMD - 09/24/2019 5:36 AM PRODUCT MANAGEMENT INTERN ED Triage Entered On: 09/24/2019 5:47 EST Performed On: 09/24/2019 5:42 EST by MINDI WONG FOOD AND BEVERAGE ASSISTANT Triage Across the Room Triage Date/Time : 09/24/2019 5:42 EST Chief Complaint : Pt c/o fever and vaginal bleeding x2 days. Pt stated she is on her period but the bleeding is more than usual; +abdominal cramping. No med taken ELEMENT WINDING MACHINE TENDER MINDI WONG RN - 09/24/2019 5:42 EST MINDI WONG RN - 09/24/2019 5:42 EST DCP GENERIC CODE Tracking Group : [facility] MINDI WONG RN - [...] 09/24/2019 05:47:35 EST) Problems(Active) Asthma (SNOMED CT :192530588 ) Name of Problem: Asthma ; Recorder: RAJNI RAMIREZ RN; Confirmation: Confirmed ; Classification: Medical ; Code: [id number] ; Contributor System: PowerChart ; Last Updated: 09/01/2018 18:05 EDT ; Life Cycle Date: 09/01/2018 ; Life Cycle Status: Active ; Vocabulary: SNOMED CT Hypothyroid (SNOMED CT :90916712 ) Name of Problem: Hypothyroid ; Recorder: RAJNI RAMIREZ RN; Confirmation: Confirmed ; Classification: Medical ; Code: [id number] ; Contributor System: PowerChart ; Last Updated: 09/01/2018 18:05 EDT ; Life Cycle Date: 09/01/2018 ; Life Cycle Status: Active ; Vocabulary: SNOMED CT PCOS (polycystic ovarian syndrome) (SNOMED CT :845597227 ) Name of Problem: PCOS (polycystic ovarian syndrome) ; Recorder: RAJNI RAMIREZ RN; Confirmation: Confirmed ; Classification: Medical ; Code: [id number] ; Contributor System: Greetz ; Last Updated: 09/01/2018 18:05 EDT ; Life Cycle Date: 09/01/2018 ; Life Cycle Status: Active ; Vocabulary: SNOMED CT Diagnoses(Active) Abdominal pain Date: 09/24/2019 ; Diagnosis Type: Reason For Visit ; Confirmation: Complaint of ; Clinical Dx: Abdominal pain ; Classification: Medical ; Clinical Service: Emergency medicine ; Code: PNED ; Probability: 0 ; Diagnosis Code: [id number] Fever Date: 09/24/2019 ; Diagnosis Type: Reason For Visit ; Confirmation: Complaint of ; Clinical Dx: Fever ; Classification: Medical ; Clinical Service: Emergency medicine ; Code: PNED ; Probability: 0 ; Diagnosis Code: [id number] Vaginal bleeding Date: 09/24/2019 ; Diagnosis Type: Reason For Visit ; Confirmation: Complaint of ; Clinical Dx: Vaginal bleeding ; Classification: Medical ; Clinical Service: Emergency medicine ; Code: PNED ; Probability: 0 ; Diagnosis Code: [id number] ED Height and Weight Height Source : Stated Height Entry Format : [place] Height, Feet : 5 ft(Converted to: 152 cm, 60 Inch) Height, Inches : 5 Inch(Converted to: 0 ft 5 Inch, 12.70 cm) Clinical Height : 165.1 cm Weight Source, ED : Standing scale Weight Entry Format : [place] Weight, Pounds : 220 lb Clinical Dosing Weight : 100 kg Body Surface Area (BSA) : 2.06 m2 Body Mass Index : 36.7 kg/m2 (HI) [place] Body Weight (IBW) : 56.59 kg MINDI [...] - 09/24/2019 5:42 EST Electronically signed by [facility], [facility] Conversion Dry Boss Cerner at 02/19/2023 9:39 AM CDT documented in this encounter Plan of Treatment Not on file documented as of this encounter Visit Diagnoses Not on filedocumented in this encounter
--- OUTSIDE RECORDS SUMMARY | 2025-10-01 14:01 | XMS_ITS | Encounter Summary ---
Author Organization [employer] ([place], [place], [place], [place], [place]) Address [address] [place] [address] Care Team Providers Care Lending Manager Name Role Phone Unavailable Primary Care Provider Unavailabl e Encounter Details Date Type Department Care Team (Late st Contact Info) Description 09/24/[address] [facility] [place] Family Medicine [facility] [place] [address] ProviderLeón MD [facility] [place] [address] Social History Tobacco Use Types [...] - León ProviderMD - 09/24/2019 9:17 AM SOCIAL INSURANCE SPECIALIST Electronically signed by Jimena [facility] Conversion Inspector Tool Cerner at 02/19/2023 9:55 AM CDT documented in this encounter Plan of Treatment Not on file documented as of this encounter Visit Diagnoses Not on filedocumented in this encounter
--- OUTSIDE RECORDS SUMMARY | 2025-10-01 14:02 | XMS_ITS | Encounter Summary ---
Author Organization [employer] ([place], [place], [place], [place], [place]) Address [address] [place] [address] Care Team Providers Care Hearing Aid Assistant Name Role Phone Unavailable Primary Care Provider Unavailabl e Encounter Details Date Type Department Care Team (Late st Contact Info) Description 11/25/2020 Transcribed Document [facility] [place] Medicine [address] [place] [address] ProviderLeón MD [address] [place] [address] Social History Tobacco Use Types [...] León Joseph MD - 11/25/2020 4:12 PM TOBACCO ROLLER [facility] [place] [address] PAM FENG :1995 Visit Time:11/25/2020 Your [...] range between ( 0.0 and 7.0 ) [place] #: 0.55 K/uL -- Normal range between ( 0.16 and 1.00 ) Eos #: 0.12 x10(3)/uL -- Normal range between ( 0.00 and 0.80 ) [place] %: 6.1 % -- Normal range between [...] instructions at home: Managing pain ??? Take jaot-vjo-kzpmajo and prescription medicines only as told by [...] Reviewed: 02/02/2018 Elsevier Patient Education ?? 2020 [email or web address]. Emergency Awareness and Preventative Care STROKE is [...] Assistance with quitting is available by contacting 6-484-DGUA-NOW. This is a free resource providing counseling, [...] was given the opportunity to ask questions. Patient/Dog Races Manager Name: Patient/Dog Races Manager Signature: Relationship to Patient: Clinician/Hospital Dog Races Manager Signature: Please Provide a Telephone Number Where You Can Be Reached: Is it Permissible To Leave a Message? Date: documented in this encounter Plan of Treatment Not on file documented as of this encounter Visit Diagnoses Not on filedocumented in this encounter
--- OUTSIDE RECORDS SUMMARY | 2025-10-01 14:02 | XMS_ITS | Encounter Summary ---
Author Organization [employer] ([place], [place], [place], [place], [place]) Address [address] [place] [address] Care Team Providers Care Cone Sewer Name Role Phone Unavailable Primary Care Provider Unavailabl e Encounter Details Date Type Department Care Team (Late st Contact Info) Description 11/25/2020 Transcribed Document [facility] [place] Family Medicine [address] [place] [address] ProviderLeón MD [address] [place] [address] Social History Tobacco Use Types [...] - Historical ProviderMD - 11/25/2020 11:11 AM CLERICAL CLERK ED POC - URINE HCG Entered On: 11/25/2020 14:40 EST Performed On: 11/25/2020 14:20 EST by LALI SEAY RN Point of Care Urine HCG HCG Result : Negative Internal Control Line Present : Yes Internal Control Background Clear : Yes LALI SEAY RN - 11/25/2020 14:39 EST Electronically signed by Jimena [facility] Conversion Precision Machine Operator Cerner at 02/19/2023 9:37 AM CDT documented in this encounter Plan of Treatment Not on file documented as of this encounter Visit Diagnoses Not on filedocumented in this encounter
--- OUTSIDE RECORDS SUMMARY | 2025-10-01 14:02 | XMS_ITS | Encounter Summary ---
Author Organization [employer] ([place], [place], [place], [place], [place]) Address [address] [place] [address] Care Team Providers Care Line Crew Supervisor Name Role Phone Unavailable Primary Care Provider Unavailabl e Encounter Details Date Type Department Care Team (Late st Contact Info) Description 09/26/2019 Transcribed Document [facility] [place] [address] [place] [address] ProviderLeón MD [address] [place] [address] Social History Tobacco Use Types [...] - Historical ProviderMD - 09/26/2019 11:00 AM AGENT PRODUCER Urine Culture Collected: 09/24/2019 Complete Body site: Specimen Type: U CleanCatch 09/26/2019 09:56 09/26/2019 11:00 (KINGSLEY MEJIA PA-C) Reviewed by Provider, No further action required 3 or more organisms suggesting contamination Electronically signed by Errol Hess Conversion Healthcare Administrative Assistant Jillner at 02/19/2023 9:47 AM CDT documented in this encounter Plan of Treatment Not on file documented as of this encounter Visit Diagnoses Not on filedocumented in this encounter
--- OUTSIDE RECORDS SUMMARY | 2025-10-01 14:02 | XMS_ITS | Clinical Summary ---
Author Organization [facility] Address [address] [place] [address] Care Team Providers Care Professor Of Graphic Design Name Role Phone Nadia Drummond MD Primary Care Provider [phone] Allergies Active Allergy Reactions Criticality Noted Date [...] Description 07/28/2025 11:15 AM EDT Office Visit [facility] [address] [place] [address] Cheri Harden DO Acquired hypothyroidism (Primary Dx); Solitary thyroid nodule 07/28/2025 Travel 07/24/2025 Telephone [facility] [address] [place] [address] Cheri Harden DO from Last 3 Months [...] Caitlin Obesity Mother Caitlin Obesity Paternal Grandmother Terra Bella Relation Name Status Comments Brother Alive Father Anam Alive Maternal Grandfather Aren Maternal Grandmother Yvette Mother Caitlin Alive Paternal Grandfather Paternal Grandmother Terra Bella Social History Tobacco Use Types Packs/Day Years [...] Description 11/03/2025 10:30 AM EST Office Visit [facility] [address] [place] [address] Cheri Harden, [address] [place] [address] Health Maintenance Due Date Last Done Comments [...] 02/16/2022 3:08 PM EDT Performed at: - [facility] [address] [place] [id number] Snack Bar Cashier: Guillermo Choi PhD, Phone: [phone] Patient Fasting: N Charla Vegas PA-C LAB BLOOD ORDERABLES Final Result [facility] [address] [place] [address], [facility] [address] [place] [address], from Last 3 Months or Most Recently Relevant to Health Maintenance Insurance [facility] [place] [address] [facility] PPO Care Teams Professor Of Graphic Design Relationship Specialty Start Date End Date Nadia Drummond MD PCP - General Family Medicine 07/15/20
--- OUTSIDE RECORDS SUMMARY | 2025-10-01 14:02 | XMS_ITS | Encounter Summary ---
Author Organization [employer] ([place], [place], [place], [place], [place]) Address [address] [place] [address] Care Team Providers Care Hazmat Truck Driver Name Role Phone Unavailable Primary Care Provider Unavailabl e Encounter Details Date Type Department Care Team (Late st Contact Info) Description 11/25/2020 Transcribed Document [facility] [place] [address] [place] [address] ProviderLeón MD [address] [place] [address] Social History Tobacco Use Types [...] - León ProviderMD - 11/25/2020 4:27 PM SHRINK PIT OPERATOR ED Discharge Entered On: 11/25/2020 16:27 [...] 11/25/2020 16:27 EST Electronically signed by Jimena [facility] Conversion Utility Locator Cerner at 02/19/2023 9:39 AM CDT documented in this encounter Plan of Treatment Not on file documented as of this encounter Visit Diagnoses Not on filedocumented in this encounter
--- OUTSIDE RECORDS SUMMARY | 2025-10-01 14:02 | XMS_ITS | Encounter Summary ---
Author Organization [employer] ([place], [place], [place], [place], [place]) Address [address] [place] [address] Care Team Providers Care Advisor Advocate Angel Co Founder Name Role Phone Unavailable Primary Care Provider Unavailabl e Encounter Details Date Type Department Care Team (Late st Contact Info) Description 11/25/2020 Transcribed Document [facility] [place] Family Medicine [address] [place] [address] ProviderLeón MD [address] [place] [address] Social History Tobacco Use Types [...] - Historical ProviderMD - 11/25/2020 10:52 AM FOSTER CARE CASE MANAGER [place] Suicide Severity Rating Scale (C-SSRS) Entered On: 11/25/2020 14:40 EST Performed On: 11/25/2020 14:40 EST by LALI SEAY RN [place] Suicide Severity Rating Scale (C-SSRS) CSSRS Past [...]
--- OUTSIDE RECORDS SUMMARY | 2025-10-01 14:02 | XMS_ITS | Encounter Summary ---
Author Organization [employer] ([place], [place], [place], [place], [place]) Address [address] [place] [address] Care Team Providers Care Preparation Room Worker Name Role Phone Unavailable Primary Care Provider Unavailabl e Encounter Details Date Type Department Care Team (Late st Contact Info) Description 11/25/2020 Transcribed Document [facility] [place] Family [place] [address] [place] [address] ProviderLeón MD [address] [place] [address] Social History Tobacco Use Types [...] - León ProviderMD - 11/25/2020 10:52 AM METAL CHECKER ED Assessment Entered On: 11/25/2020 14:03 EST Performed On: 11/25/2020 14:01 EST by LALI SEAY RN ED Quick Look Assessment Level of Consciousness : Alert, Awake Affect/Behavior : Appropriate, Calm, Cooperative Orientation : Oriented x 4 Skin Temperature : Warm Skin Description : Dry, Ambia LALI SEAY RN - 11/25/2020 14:01 EST ED General-Functional Assess Information Obtained From : Patient Preferred Communication Mode : Verbal Communication Barrier : None Primary Language : Setswana Any Spiritual/Cultural Needs or Requests : No [...] RN - 11/25/2020 14:01 EST Canelo Coma Canelo Best Motor Response : Obey commands Canelo Best Verbal Response : Oriented Novi Eye Opening Response : Spontaneous Novi Coma Score : 15 LALI SEAY RN - 11/25/2020 14:01 EST Electronically signed by Jimena [facility] Conversion Form Builder Helper Cerner at 02/19/2023 10:00 AM CDT documented in this encounter Plan of Treatment Not on file documented as of this encounter Visit Diagnoses Not on filedocumented in this encounter
--- OUTSIDE RECORDS SUMMARY | 2025-10-01 14:02 | XMS_ITS | Encounter Summary ---
Author Organization [employer] ([place], [place], [place], [place], [place]) Address [address] [place] [address] Care Team Providers Care Map Compiler Name Role Phone Unavailable Primary Care Provider Unavailabl e Encounter Details Date Type Department Care Team (Late st Contact Info) Description 11/25/2020 Transcribed Document [facility] [place] Family [place] [facility] [place] [address] ProviderLeón MD [address] [place] [address] Social History Tobacco Use Types [...] - Historical ProviderMD - 11/25/2020 3:34 PM DENTAL APPLIANCE FIXER Electronically signed by Jimena [facility] Conversion Plaster Pattern Caster Cerner at 02/19/2023 9:52 AM CDT documented in this encounter Plan of Treatment Not on file documented as of this encounter Visit Diagnoses Not on filedocumented in this encounter
--- OUTSIDE RECORDS SUMMARY | 2025-10-01 14:02 | XMS_ITS | Encounter Summary ---
Author Organization [employer] ([place], [place], [place], [place], [place]) Address [address] [place] [address] Care Team Providers Care Newspaper Photographer Name Role Phone Unavailable Primary Care Provider Unavailabl e Encounter Details Date Type Department Care Team (Late st Contact Info) Description 09/24/2019 Transcribed Document [facility] [place] [address] [place] [address] ProviderLeón MD [address] [place] [address] Social History Tobacco Use Types [...] - Historical ProviderMD - 09/24/2019 7:56 AM COMPLIANCE MANAGER Vital Signs ED Entered On: 09/24/2019 [...]
--- OUTSIDE RECORDS SUMMARY | 2025-10-01 14:02 | XMS_ITS | Encounter Summary ---
Author Organization [employer] ([place], [place], [place], [place], [place]) Address [address] [place] [address] Care Team Providers Care Repairer Helper Name Role Phone Unavailable Primary Care Provider Unavailabl e Encounter Details Date Type Department Care Team (Late st Contact Info) Description 09/24/2019 Transcribed Document [facility] [place] Medicine [address] [place] [address] ProviderLeón MD [address] [place] [address] Social History Tobacco Use Types [...] - Historical ProviderMD - 09/24/2019 6:15 AM VP CORPORATE PARTNERSHIPS Patient: PAM FENG Age: 24 years Sex: [...] than usual; +abdominal cramping. No med taken MAIN LINE ASSEMBLER . History of Present Illness 24-year-old female [...] started fertility medication last Monday. Patient sees labor economics teacher Chandan Lucas. Patient is with history of [...] EST Height Source Stated Height Entry Format [place] Height/Length, KHMER (ft) 5 ft Height/Length KHMER 5 Inch CLINICALHEIGHT 165.1 cm [place] Body Weight 56.59 kg Weight Source, ED Standing scale Weight Entry Format [place] Weight [place] lb 220 lb CLINICALWEIGHT 100 kg Body [...] Triage: ED C-SSRS: ED Clinical Reconciliation: ED pedicab driver: HCG Urine Qualitative: LENNY Prep: NaCl 0.9% [...] Color Red Urine Appearance Cloudy Urine Specific [place] 1.007 Urine pH Dipstick 5.5 LOW Urine [...] % 27.7 % Lymph # 2.10 K/uL [place] % 7.9 % [place] # 0.60 K/uL Eos % 4.2 % Eos # 0.32 K/uL Baso % 0.4 % Baso # 0.03 K/uL Slide Review No IG# 0 x10(3)/uL IG% 0 % PT 9.6 Second(s) INR 0.9 PTT 25.4 Second(s) Wet Prep See Result LENNY Prep See Result Specimen Type swab . Radiology results: Radiology Results (Last 48 hours) [id number] -- 09/24/2019 05:36 US Transvaginal Non Ob [...] yesterday. Rosenda Meyer MD Electronically signed by [facility] Conversion Grey Tender Cerner at 02/19/2023 9:58 AM CDT documented in this encounter Plan of Treatment Not on file documented as of this encounter Visit Diagnoses Not on filedocumented in this encounter
--- OUTSIDE RECORDS SUMMARY | 2025-10-01 14:02 | XMS_ITS | Encounter Summary ---
Author Organization [employer] ([place], [place], [place], [place], [place]) Address [address] [place] [address] Care Team Providers Care Engine Lathe Tender Name Role Phone Unavailable Primary Care Provider Unavailabl e Encounter Details Date Type Department Care Team (Late st Contact Info) Description 11/25/[address] [facility] [place] Family Medicine [address] [place] [address] ProviderLeón MD [address] [place] [address] Social History Tobacco Use Types [...] - Historical ProviderMD - 11/25/2020 10:52 AM CORRECTIONAL PROGRAM SPECIALIST [place] Violence Assessment Entered On: 11/25/2020 14:03 EST Performed On: 11/25/2020 14:03 EST by LALI SEAY RN Broset Violence Assessment Broset Violence Checklist of Symptoms : None Broset Violence Symptoms Subtotal : 0 Broset Violence Symptoms Indicator : Low risk (0) LALI SEAY RN - 11/25/2020 14:03 EST Electronically signed by Jimena [facility] Conversion Reception Specialist Cerner at 02/19/2023 9:42 AM CDT documented in this encounter Plan of Treatment Not on file documented as of this encounter Visit Diagnoses Not on filedocumented in this encounter
[2025-10-01 14:24] VITALS: BP 117/59; PULSE 83; RESP 18; O2SAT 100
[2025-10-01] MEDS: IRON SUCROSE COMPLEX 200 MG in 0.9 % SODIUM CHLORIDE 100 ML 220 MG IV (14:24)
[2025-10-01 15:05] VITALS: BP 94/54; PULSE 85; RESP 18; O2SAT 100
== END 2025-10-01 23:59 | disposition home or self-care (01) ==
PROVIDERS: PCP Family Medicine; Visit Provider Obstetrics & Gynecology
DX: O99.019 Anemia complicating pregnancy, unspecified trimester (principal); Z3A.00 Weeks of gestation of pregnancy not specified
CPT/HCPCS: 96365; J1756

== ENCOUNTER 2025-10-09 11:58 | Outpatient (CLI) | payer BC, SELFPAY ==
--- OUTSIDE RECORDS SUMMARY | 2021-05-03 11:23 | XMS_ITS | Encounter Summary ---
[facility] [address] [place] [address] Care Team Providers Care Production Sound Mixer Name Role Phone Nadia Drummond MD Primary Care Provider [phone] Reason for Visit * Diagnostic Imaging (Routine) - Closed Specialty Diagnoses / Procedures Referred By Contac t Referred To Contact Radiology Diagnoses Hypothyroidism, unspecified type Procedures US Thyroid Cheri Harden DO [address] [place] [address] Phone: tel: fax: [facility] [address] [place] [address] Phone: tel: fax: Referral ID Status Reason Start Date Expiration Date Visits Re quested Visits Authorized [id number] Closed 05/03/2021 05/03/2022 1 1 Encounter Details Date Type Department Care Team (Late st Contact Info) Description 05/03/2021 12:23 PM EDT Hospital Encounter [facility] [address] [place] [address] Social History Tobacco Use Types [...] Description 11/03/2025 10:30 AM EST Office Visit [facility] [address] [facility] [facility] [address] [facility] [address] [place] [address] Cheri Harden, [address] [facility] [address] [place] [address] documented as of this encounter Procedures Procedure [...] documented as of this encounter Care Teams Production Sound Mixer Relationship Specialty Start Date End Date Nadia Drummond MD PCP - General Family Medicine 07/15/20 documented as of this encounter
--- OUTSIDE RECORDS SUMMARY | 2022-10-13 09:42 | XMS_ITS | Encounter Summary ---
Author Organization [facility] Address [address] [place] [address] Care Team Providers Care Dance Choreographer Name Role Phone Nadia Drummond MD Primary Care Provider [phone] Reason for Visit * Diagnostic Imaging (Routine) - Closed Specialty Diagnoses / Procedures Referred By Idalia caruso Referred To Contact Radiology Diagnoses Solitary thyroid nodule Procedures US Thyroid Cheri Harden DO 3084 [facility]JobConvoLEHIGH [facility] J[facility] [address] [place] [address] Phone: tel: fax: Referral ID Status Reason Start Date Expiration Date Visits Re quested Visits Authorized [id number] Closed 10/13/2022 10/13/2023 1 1 Encounter Details Date Type Department Care Team (Late st Contact Info) Description 10/13/2022 9:42 AM EST Hospital Encounter [facility] END[facility]CRINOLOGY 3084 [facility] [address] [place] [phone] Social History Tobacco Use Types Packs/Day [...] Description 11/03/2025 10:30 AM EST Office Visit [facility] ENDOCRINOLOGY 3084 [facility] [address] [place] [address] Cheri Harden, DO [address] [address] documented as of this encounter Procedures Procedure [...] documented as of this encounter Care Teams Dance Choreographer Relationship Specialty Start Date End Date Nadia Drummond MD PCP - General Family Medicine 07/15/20 documented as of this encounter
--- OUTSIDE RECORDS SUMMARY | 2025-10-09 12:06 | XMS_ITS | Clinical Summary ---
Author Organization [facility] Address [address] [place] [address] Care Team Providers Care Photographer Finish Name Role Phone Nadia Goodson MD Primary Care Provider [phone] Allergies Active Allergy Reactions Criticality Noted Date [...] Recorded Patient Health Questionnaire-2 Score 0 04/08/2025 Kendall Depression Scale Answer Date Recorded Kendall Depression Scale Total 0 02/23/2024 The thought [...] Visit Obstetrics & Gynecology [address] [place] [address] Tres Ybarra MD [address] [place] [address] Health Maintenance Due Date Last Done Comments [facility]-/Child/Adol SDOH Screenings 1993 [facility]- SDOH Screenings 2011 [facility]-Adult SDOH Screenings 2011 [facility]-Hepatitis B Vaccines (1 of 3 - 19+ 3-dose series) 2012 [facility]-Varicella Vaccines (2 of 2 - 13+ 2-dose series) 05/27/2015 04/29/2015 HPV Vaccines (1 - 3-dose SCDM series) 2020 [id number]-35 Vaccine (3 - Moderna risk series) 01/06/2021 [...] Pap, Source Cx/Vagina 02/13/2025 12:50 PM EDT [facility] EER Referred ThinPrep Pap and HPV See Note 02/13/2025 12:50 PM EDT [facility] PAP, THINPREP Normal 02/13/2025 12:50 PM EDT [facility] High Risk HPV Normal 02/13/2025 12:50 PM EDT [facility] Swab Vaginal and cervical cytologic material / Unknown Non-blood Collection / Unknown 02/06/2025 8:23 AM EDT 02/06/2025 12:54 PM EDT Narrative [facility]) - 02/13/2025 12:50 PM EDT Authorized individuals can access the [facility] Enhanced Report with an [facility] Connect account using the following link. Your local lab can assist you in obtaining the patient report if you don't have a Connect account. [email or web address] Performed By: [facility] [address] [place] [id number] University Extension Specialist: Thompson Correa MD, PhD CLIA Number: [id number] SPECIMEN PART A. Cervical, Endocervical, Vaginal, ThinPrep Pap ([employer] [place]) CYTOLOGY HX Date of Last Menstrual Period: N FINAL DIAGNOSIS INTERPRETATION: Negative for Intraepithelial Lesion or Malignancy. SPECIMEN ADEQUACY:Satisfactory for evaluation. Endocervical/transformation zone component present. Electronically Signed Out : [email or web address] Performed by: [facility] [address] [place] [address] [place] [id number] Desire Alvarez MD, HR-HPV: Negative Test performed by the FDA-approved Hologic (Gen-Probe) APTIMA HPV test, which detects HPV genotypes: 16, 18, 31, 33, 35, 39, 45, 51, 52, 56, 58, 59, 66, and 68. This assay has been cleared for the specimen types listed below. Other specimen types have not been validated for this assay. -Clinician-collected ThinPrep Pap specimens. Performed by: [facility] [address] [place] [address] [place] [id number] Desire Alvarez MD, Tres Ybarra MD LAB REF LAB BLOOD AND FLUID ORD Final Result [facility] [address] [phone] * HIV 1 & 2 Antibody/Antigen Screen (05/29/2023 10:20 AM EDT) HIV 1 & 2 Antibody/Antigen Screen Non Reactive Non Reactive 05/29/2023 2:06 PM EDT [facility] Comment:Screening for HIV 1 & 2 antibodies, and P24 antigen is NONREACTIVE. No confirmatory testing is required. Blood Venous blood specimen / Unknown Venipuncture / Unknown 05/29/2023 10:20 AM EDT 05/29/2023 1:01 PM EDT Result Mary Ybarra MD LAB BLOOD ORDERABLES Final Resu lt Performing Organization Address City/[facility]/ZIP Co de Phone Number [facility] [address] [place] [address] * Hepatitis C Antibody (05/29/2023 10:20 AM EDT) Hepatitis C Antibody Negative Negative 05/29/2023 2:02 PM EDT [facility]ALTH[facility] Blood Venous blood specimen / Unknown Venipuncture / Unknown 05/29/2023 10:20 AM EDT 05/29/2023 1:01 PM EDT Result Mary Ybarra MD LAB BLOOD ORDERABLES Final Resu lt Performing Organization Address City/[facility] Co de Phone Number [facility] [address] [place] [address] from Last 3 Months or Most Recently Relevant to Health Maintenance Insurance [facility] Advance Directives * Full Code (Latest Code Status on File) Date Activated Date Inactivated Comments 08/09/2021 8:28 PM 08/10/2021 1:42 PM Question Answer Comments Patient has decision-making capacity? Yes * Full Code Date Activated Date Inactivated Comments 08/08/2021 3:47 AM 08/09/2021 12:51 AM Question Answer Comments Patient has decision-making capacity? Yes Care Teams Photographer Finish Relationship Specialty Start Date End Date Nadia Goodson MD [address] [place] [address] PCP - General 01/17/23
[2025-10-09] MEDS: IRON SUCROSE COMPLEX 200 MG in 0.9 % SODIUM CHLORIDE 100 ML 220 MG IV (12:07)
--- OUTSIDE RECORDS SUMMARY | 2025-10-09 12:07 | XMS_ITS | Encounter Summary ---
Author Organization [employer] ([place], [place], [place], [place], [place]) Address [address] [place] [address] Care Team Providers Care Mangle Operator Garments Name Role Phone Unavailable Primary Care Provider Unavailabl e Encounter Details Date Type Department Care Team (Late st Contact Info) Description 09/24/[address] [facility] [place] Family Medicine [facility] [address] ProviderLeón MD [facility] [address] Social History Tobacco Use Types [...] - León ProviderMD - 09/24/2019 5:36 AM HOME HEALTH CARE CASE MANAGER ED Triage Entered On: 09/24/2019 5:47 EST Performed On: 09/24/2019 5:42 EST by MINDI WONG DIRECTOR WATER AND WASTE SERVICES Triage Across the Room Triage Date/Time : 09/24/2019 5:42 EST Chief Complaint : Pt c/o fever and vaginal bleeding x2 days. Pt stated she is on her period but the bleeding is more than usual; +abdominal cramping. No med taken SPINNER HYDRAULIC MINDI WONG RN - 09/24/2019 5:42 EST MINDI WONG RN - 09/24/2019 5:42 EST DCP GENERIC CODE Tracking Group : [facility] MINDI WONG RN - 09/24/2019 [...] 09/24/2019 05:47:35 EST) Problems(Active) Asthma (SNOMED CT :055524852 ) Name of Problem: Asthma ; Recorder: RAJNI RAMIREZ RN; Confirmation: Confirmed ; Classification: Medical ; Code: 127919011 ; Contributor System: PowerChart ; Last Updated: 09/01/2018 18:05 EDT ; Life Cycle Date: 09/01/2018 ; Life Cycle Status: Active ; Vocabulary: SNOMED CT Hypothyroid (SNOMED CT :59573659 ) Name of Problem: Hypothyroid ; Recorder: RAJNI RAMIREZ RN; Confirmation: Confirmed ; Classification: Medical ; Code: 14702406 ; Contributor System: PowerChart ; Last Updated: 09/01/2018 18:05 EDT ; Life Cycle Date: 09/01/2018 ; Life Cycle Status: Active ; Vocabulary: SNOMED CT PCOS (polycystic ovarian syndrome) (SNOMED CT :356216074 ) Name of Problem: PCOS (polycystic ovarian syndrome) ; Recorder: RAJNI RAMIREZ RN; Confirmation: Confirmed ; Classification: Medical ; Code: [id number] ; Contributor System: GIVTED ; Last Updated: 09/01/2018 18:05 EDT ; Life Cycle Date: 09/01/2018 ; Life Cycle Status: Active ; Vocabulary: SNOMED CT Diagnoses(Active) Abdominal pain Date: 09/24/2019 ; Diagnosis Type: Reason For Visit ; Confirmation: Complaint of ; Clinical Dx: Abdominal pain ; Classification: Medical ; Clinical Service: Emergency medicine ; Code: PNED ; Probability: 0 ; Diagnosis Code: [id number] Fever Date: 09/24/2019 ; Diagnosis Type: Reason For Visit ; Confirmation: Complaint of ; Clinical Dx: Fever ; Classification: Medical ; Clinical Service: Emergency medicine ; Code: PNED ; Probability: 0 ; Diagnosis Code: [id number] Vaginal bleeding Date: 09/24/2019 ; Diagnosis Type: Reason For Visit ; Confirmation: Complaint of ; Clinical Dx: Vaginal bleeding ; Classification: Medical ; Clinical Service: Emergency medicine ; Code: PNED ; Probability: 0 ; Diagnosis Code: [id number] ED Height and Weight Height Source : Stated Height Entry Format : [place] Height, Feet : 5 ft(Converted to: 152 cm, 60 Inch) Height, Inches : 5 Inch(Converted to: 0 ft 5 Inch, 12.70 cm) Clinical Height : 165.1 cm Weight Source, ED : Standing scale Weight Entry Format : [place] Weight, Pounds : 220 lb Clinical Dosing Weight : 100 kg Body Surface Area (BSA) : 2.06 m2 Body Mass Index : 36.7 kg/m2 (HI) [place] Body Weight (IBW) : 56.59 kg MINDI [...] - 09/24/2019 5:42 EST Electronically signed by [facility], [facility] Conversion Manager Mass Cerner at 02/19/2023 9:39 AM CDT documented in this encounter Plan of Treatment Not on file documented as of this encounter Visit Diagnoses Not on filedocumented in this encounter
--- OUTSIDE RECORDS SUMMARY | 2025-10-09 12:07 | XMS_ITS | Encounter Summary ---
Author Organization [employer] ([place], [place], [place], [place], [place]) Address [address] [place] [address] Care Team Providers Care Admissions Manager Name Role Phone Unavailable Primary Care Provider Unavailabl e Encounter Details Date Type Department Care Team (Late st Contact Info) Description 09/24/2019 Transcribed Document [facility] [place] Family Medicine [address] [place] [address] ProviderLeón MD [address] [place] [address] Social History Tobacco Use Types [...] León Joseph MD - 09/24/2019 8:33 AM FRAME CATCHER Pain Assessment Entered On: 09/24/2019 9:40 EST [...]
--- OUTSIDE RECORDS SUMMARY | 2025-10-09 12:07 | XMS_ITS | Encounter Summary ---
Author Organization [employer] ([place], [place], [place], [place], [place]) Address [address] [place] [address] Care Team Providers Care Process Safety Engineer Name Role Phone Unavailable Primary Care Provider Unavailabl e Encounter Details Date Type Department Care Team (Late st Contact Info) Description 09/24/2019 Transcribed Document [facility] [place] Family Medicine [address] [place] [address] ProviderLeón MD [address] [place] [address] Social History Tobacco Use Types [...] - Historical ProviderMD - 09/24/2019 5:36 AM BRIAR WOOD SORTER [place] Suicide Severity Rating Scale (C-SSRS) Entered On: 09/24/2019 6:25 EST Performed On: 09/24/2019 6:24 EST by RENETTA NIXON RN [place] Suicide Severity Rating Scale (C-SSRS) CSSRS Past [...]
--- OUTSIDE RECORDS SUMMARY | 2025-10-09 12:07 | XMS_ITS | Encounter Summary ---
Author Organization [employer] ([place], [place], [place], [place], [place]) Address [address] [place] [address] Care Team Providers Care Dinkey Engine Firer/Fireman Name Role Phone Unavailable Primary Care Provider Unavailabl e Encounter Details Date Type Department Care Team (Late st Contact Info) Description 09/24/2019 Transcribed Document [facility] [place] Family Medicine [address] [place] [address] ProviderLeón MD [address] [place] [address] Social History Tobacco Use [...] León Joseph MD - 09/24/2019 10:05 AM [place] [address] PAM FENG :1995 Visit Time:09/24/2019 Your Visit [...] fever and or persistent vomiting. Where: [address] [facility] [place] [address]- Business (1) Allergies amoxicillin (C/O - vomiting) [...] range between ( 1.0 and 7.0 ) [place] #: 0.60 K/uL -- Normal range between ( 0.24 and 0.82 ) Eos #: 0.32 K/uL -- Normal range between ( 0.04 and 0.54 ) [place] %: 7.9 % -- Normal range between [...] ) Urine Bilirubin Dipstick: Negative Urine Specific [place]: 1.007 -- Normal range between ( 1.005 [...] 10/23/2006 Document Revised: 11/24/2017 Document Reviewed: 11/24/2017 [employer] Interactive Patient Education ?? 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 Emergency Awareness and Preventative Care STROKE is [...] Assistance with quitting is available by contacting 2-802-IMYA-NOW. This is a free resource providing counseling, [...] was given the opportunity to ask questions. Patient/Dimensional Inspector Name: Patient/Dimensional Inspector Signature: Relationship to Patient: Clinician/Hospital Dimensional Inspector Signature: Please Provide a Telephone Number Where You Can Be Reached: Is it Permissible To Leave a Message? Date: Electronically signed by Jimena, [facility] Conversion Beater Room Supervisor Kimberly at 02/19/2023 9:54 AM CDT documented in this encounter Plan of Treatment Not on file documented as of this encounter Visit Diagnoses Not on filedocumented in this encounter
--- OUTSIDE RECORDS SUMMARY | 2025-10-09 12:07 | XMS_ITS | Encounter Summary ---
Author Organization [employer] ([place], [place], [place], [place], [place]) Address [address] [place] [address] Care Team Providers Care Cable Tower Operator Name Role Phone Unavailable Primary Care Provider Unavailabl e Encounter Details Date Type Department Care Team (Late st Contact Info) Description 09/24/2019 Transcribed Document [facility] [place] Family Medicine [address] [place] [address] ProviderLeón MD [address] [place] [address] Social History Tobacco Use Types [...] León Joseph MD - 09/24/2019 5:36 AM CLINICAL SALES CONSULTANT ED Assessment Entered On: 09/24/2019 6:25 EST Performed On: 09/24/2019 6:24 EST by RENETTA NIXON RN ED Quick Look Assessment Level of Consciousness : Alert, Awake RENETTA NIXON RN - 09/24/2019 6:24 EST ED General-Functional Assess Information Obtained From : Patient Communication Barrier : None Primary Language : Chinese Any Spiritual/Cultural Needs or Requests : No [...] RN) EENT Assessment EENT Assessment WDL : [facility] HUSSAINRENETTA RN - 09/24/2019 6:24 EST Cardiovascular ASMT, ED Cardiovascular Assessment WDL : [facility] RENETTA NIXON RN - 09/24/2019 6:24 EST Pulses Grid Radial Pulse, Left : 2+ normal Radial Pulse, Right : 2+ normal RENETTA NIXON RN - 09/24/2019 6:24 EST Respiratory Respiratory Assessment WDL : [facility] RENETTA NIXON RN - 09/24/2019 6:24 EST Breath Sounds Assessment Grid All Lobes Breath Sounds : Clear RENETTA NIXON RN - 09/24/2019 6:24 EST Gastrointestinal ED Gastrointestinal Assessment WDL : [facility] with exceptions Gastrointestinal Symptoms : Abdominal pain RENETTA NIXON RN - 09/24/2019 6:24 EST Genitourinary Assessment, ED Genitourinary Assessment WDL : [facility] with exceptions Genitourinary Symptoms : Vaginal bleeding RENETTA NIXON RN - 09/24/2019 6:24 EST Musculoskeletal Musculoskeletal Assessment WDL : [facility] RENETTA NIXON RN - 09/24/2019 6:24 EST Integumentary Assessment Integumentary Assessment WDL : [facility] RENETTA NIXON RN - 09/24/2019 6:24 EST Neurologic ASMT, ED Neurologic Assessment WDL : [facility] RENETTA NIXON RN - 09/24/2019 6:24 EST documented in this encounter Plan of Treatment Not on file documented as of this encounter Visit Diagnoses Not on filedocumented in this encounter
--- OUTSIDE RECORDS SUMMARY | 2025-10-09 12:07 | XMS_ITS | Encounter Summary ---
Author Organization [employer] ([place], [place], [place], [place], [place]) Address [address] [place] [address] Care Team Providers Care Electronic Prepress System Operator Name Role Phone Unavailable Primary Care Provider Unavailabl e Encounter Details Date Type Department Care Team (Late st Contact Info) Description 09/24/2019 Transcribed Document [facility] [place] Family Medicine [facility] [place] [address] ProvidereLón MD [address] [place] [address] Social History Tobacco Use Types [...] - León ProviderMD - 09/24/2019 9:17 AM SUPERVISOR SAWING AND ASSEMBLY Electronically signed by Jimena [facility] Conversion Education Associate Cerner at 02/19/2023 9:55 AM CDT documented in this encounter Plan of Treatment Not on file documented as of this encounter Visit Diagnoses Not on filedocumented in this encounter
--- OUTSIDE RECORDS SUMMARY | 2025-10-09 12:09 | XMS_ITS | Encounter Summary ---
Author Organization [employer] ([place], [place], [place], [place], [place]) Address [address] [place] [address] Care Team Providers Care Car Washer Name Role Phone Unavailable Primary Care Provider Unavailabl e Encounter Details Date Type Department Care Team (Late st Contact Info) Description 11/25/2020 Transcribed Document [facility] [place] [address] [place] [address] ProviderLeón MD [address] [place] [address] Social History Tobacco Use Types [...] - Historical ProviderMD - 11/25/2020 10:52 AM SURFBOARD MAKER [place] Violence Assessment Entered On: 11/25/2020 14:03 EST Performed On: 11/25/2020 14:03 EST by LALI SEAY RN [place] Violence Assessment Bro[place] Violence Checklist of Symptoms : None Bro[place] Violence Symptoms Subtotal : 0 [place] Violence Symptoms Indicator : Low risk (0) LALI SEAY RN - 11/25/2020 14:03 EST Electronically signed by Jimena [facility] Conversion Sales And Marketing Intern Cerner at 02/19/2023 9:42 AM CDT documented in this encounter Plan of Treatment Not on file documented as of this encounter Visit Diagnoses Not on filedocumented in this encounter
--- OUTSIDE RECORDS SUMMARY | 2025-10-09 12:09 | XMS_ITS | Encounter Summary ---
Author Organization [employer] ([place], [place], [place], [place], [place]) Address [address] [place] [address] Care Team Providers Care Neuroscience Specialist Name Role Phone Unavailable Primary Care Provider Unavailabl e Encounter Details Date Type Department Care Team (Late st Contact Info) Description 11/25/[address] [facility] Radiology [address] [place] [address] Virgie Armendariz MD [facility] Dept of Emergency Medicine [place], [place] [id number] Social History Tobacco Use Types Packs/Day Years [...] at maximum was 10 /10. , just [employer] CONSERVATION LABORER . The degree at present is moderate, [...] EST Height Source Stated Height Entry Format [place] Height/Length, ROMANIAN (ft) 5 ft Height/Length ROMANIAN 5 Inch CLINICALHEIGHT 165.1 cm [place] Neck Body Weight 56.59 kg Weight Source, ED Critical estimated dosing weight Weight Entry Format [place] Weight Danish lb 220 lb CLINICALWEIGHT 100 kg Body [...] % 26.1 % Lymph # 2.37 x10(3)/uL [place] % 6.1 % [place] # 0.55 K/uL Eos % 1.3 % Eos # 0.12 x10(3)/uL Baso % 0.3 % Baso # 0.03 x10(3)/uL Slide Review No IG# 0.03 x10(3)/uL IG% 0.30 % . Radiology results: Radiology Results (Last 48 hours) [id number] -- 11/25/2020 10:52 CT Head WO (11/25/2020 [...] instructions. Notes: I certify that the Physician Kiss Mixer performed the services as delegated. I agree with the assessment, treatment plan and disposition of the patient as recorded by the Physician Kiss Mixer. This document was created with GetOut[employer]itted dictation software and unidentified chemist intern errors may be present.. . documented in this encounter Plan of Treatment Not on file documented as of this encounter Visit Diagnoses Not on filedocumented in this encounter
--- OUTSIDE RECORDS SUMMARY | 2025-10-09 12:09 | XMS_ITS | Clinical Summary ---
Author Organization [employer] ([place], [place], [place], [place], [place]) Address [address] [place] [address] Care Team Providers Care Operator Vacuum Name Role Phone Unavailable Primary Care Provider [...]
--- OUTSIDE RECORDS SUMMARY | 2025-10-09 12:09 | XMS_ITS | Encounter Summary ---
Author Organization [employer] ([place], [place], [place], [place], [place]) Address [address] [place] [address] Care Team Providers Care Jigsawyer Name Role Phone Unavailable Primary Care Provider Unavailabl e Encounter Details Date Type Department Care Team (Late st Contact Info) Description 09/24/2019 Transcribed Document [facility] [place] [address] [place] [address] ProviderLeón MD [address] [place] [address] Social History Tobacco Use Types [...] - Historical ProviderMD - 09/24/2019 7:56 AM PYTHON ARCHITECT Vital Signs ED Entered On: 09/24/2019 8:38 [...]
--- OUTSIDE RECORDS SUMMARY | 2025-10-09 12:09 | XMS_ITS | Patient Health Record ---
Author Organization [facility] Address [address] [facility] [address] [place] [address] Care Team Providers Care Revenue Stamper Name Role Phone Maggie Tenorio [phone] Allergies Allergen (clinical drug ingredient) Drug/Non Drug [...] Notes Problem Noninflammatory disorder of the vagina (00332190) Bloody vaginal discharge (N89.8) 02/03/20 21 Active [...]
--- OUTSIDE RECORDS SUMMARY | 2025-10-09 12:09 | XMS_ITS | Encounter Summary ---
Author Organization [facility] Address [address] [place] [address] Care Team Providers Care Audio Visual Director Name Role Phone Pcp, No Primary Care Provider Nadia Todd MD Primary Care Provider [phone] Pcp, No Primary Care Provider Nadia Todd MD Primary Care Provider [phone] Encounter Details Date Type Department Care Team (Late st Contact Info) Description 10/31/2019 [facility] Encounter Historical OTTR [address] [place] [address] Provider, [address] [address] Social History Tobacco Use Types [...] EDT Procedure Visit Obstetrics & Gynecology [address] [place] [address] Tres Ybarra MD [address] [place] [address] documented as of this encounter Visit Diagnoses Not on filedocumented in this encounter Care Teams Audio Visual Director Relationship Specialty Start Date End Date Pcp, No [address] [place] [address] PCP - General 08/07/21 08/08/21 Nadia Goodson MD [address] [place] [address] PCP - General 08/09/21 08/09/21 Pcp, No [address] [place] [address] PCP - General Family Medicine 07/08/22 01/16/23 Nadia Goodson MD [address] [place] [address] PCP - General 01/17/23 documented as of this encounter
--- OUTSIDE RECORDS SUMMARY | 2025-10-09 12:09 | XMS_ITS | Encounter Summary ---
Author Organization [employer] ([place], [place], [place], [place], [place]) Address [address] [place] [address] Care Team Providers Care Machine Operator Slitter Technician Name Role Phone Unavailable Primary Care Provider Unavailabl e Encounter Details Date Type Department Care Team (Late st Contact Info) Description 11/25/2020 Transcribed Document [facility] [place] [address] [place] [address] ProviderLeón MD [address] [place] [address] Social History Tobacco Use Types [...] - León ProviderMD - 11/25/2020 4:27 PM FLAKEBOARD LINE TENDER ED Discharge Entered On: 11/25/2020 16:27 EST [...] 11/25/2020 16:27 EST Electronically signed by Jimena [facility] Conversion Shallot Cleaner Cerner at 02/19/2023 9:39 AM CDT documented in this encounter Plan of Treatment Not on file documented as of this encounter Visit Diagnoses Not on filedocumented in this encounter
--- OUTSIDE RECORDS SUMMARY | 2025-10-09 12:09 | XMS_ITS | Encounter Summary ---
Author Organization [employer] ([place], [place], [place], [place], [place]) Address [address] [place] [address] Care Team Providers Care Warehouse Handler Name Role Phone Unavailable Primary Care Provider Unavailabl e Encounter Details Date Type Department Care Team (Late st Contact Info) Description 11/25/2020 Transcribed Document [facility] [place] [place] Family Medicine [address] [place] [address] ProviderLeón MD [address] [place] [address] Social History Tobacco Use Types [...] - Historical ProviderMD - 11/25/2020 10:52 AM SHIP RIGGER [place] Suicide Severity Rating Scale (C-SSRS) Entered On: 11/25/2020 14:40 EST Performed On: 11/25/2020 14:40 EST by LALI SEAY RN [place] Suicide Severity Rating Scale (C-SSRS) CSSRS Past [...]
--- OUTSIDE RECORDS SUMMARY | 2025-10-09 12:09 | XMS_ITS | Encounter Summary ---
Author Organization [employer] ([place], [place], [place], [place], [place]) Address [address] [place] [address] Care Team Providers Care Barrel Inspector Tight Name Role Phone Unavailable Primary Care Provider Unavailabl e Encounter Details Date Type Department Care Team (Late st Contact Info) Description 11/25/2020 Transcribed Document [facility] [place] Family Medicine [address] [place] [address] ProviderLeón MD [address] [place] [address] Social History Tobacco Use Types [...] - León ProviderMD - 11/25/2020 10:52 AM BUTTONHOLE MARKER ED Triage Entered On: 11/25/2020 11:06 EST [...] : 3 - Urgent Tracking Group : [facility] ED ALBERTO CHAVES RN - 11/25/2020 11:03 [...] 11/25/2020 11:06:17 EST) Problems(Active) Asthma (SNOMED CT :742477538 ) Name of Problem: Asthma ; Recorder: RAJNI RAMIREZ RN; Confirmation: Confirmed ; Classification: Medical ; Code: [id number] ; Contributor System: PowerChart ; Last Updated: 09/01/2018 18:05 EDT ; Life Cycle Date: 09/01/2018 ; Life Cycle Status: Active ; Vocabulary: SNOMED CT Hypothyroid (SNOMED CT :62452023 ) Name of Problem: Hypothyroid ; Recorder: RAJNI RAMIREZ RN; Confirmation: Confirmed ; Classification: Medical ; Code: [id number] ; Contributor System: PowerChart ; Last Updated: 09/01/2018 18:05 EDT ; Life Cycle Date: 09/01/2018 ; Life Cycle Status: Active ; Vocabulary: SNOMED CT PCOS (polycystic ovarian syndrome) (SNOMED CT :108964825 ) Name of Problem: PCOS (polycystic ovarian syndrome) ; Recorder: RAJNI RAMIREZ RN; Confirmation: Confirmed ; Classification: Medical ; Code: [id number] ; Contributor System: Return Path ; Last Updated: 09/01/2018 18:05 EDT ; Life Cycle Date: 09/01/2018 ; Life Cycle Status: Active ; Vocabulary: SNOMED CT Diagnoses(Active) Headache Date: 11/25/2020 ; Diagnosis Type: Reason For Visit ; Confirmation: Complaint of ; Clinical Dx: Headache ; Classification: Medical ; Clinical Service: Emergency medicine ; Code: PNED ; Probability: 0 ; Diagnosis Code: [id number] ED Height and Weight Height Source : Stated Height Entry Format : [place] Height, Feet : 5 ft(Converted to: 152 cm, 60 Inch) Height, Inches : 5 Inch(Converted to: 0 ft 5 Inch, 12.70 cm) Clinical Height : 165.1 cm Weight Source, ED : Critical estimated dosing weight Weight Entry Format : [place] Weight, Pounds : 220 lb Clinical Dosing Weight : 100 kg Body Surface Area (BSA) : 2.06 m2 Body Mass Index : 36.7 kg/m2 (HI) [place] Body Weight (IBW) : 56.59 kg ALBERTO [...]
--- OUTSIDE RECORDS SUMMARY | 2025-10-09 12:09 | XMS_ITS | Encounter Summary ---
Author Organization [employer] ([place], [place], [place], [place], [place]) Address [address] [place] [address] Care Team Providers Care Cd Reactor Operator Name Role Phone Unavailable Primary Care Provider Unavailabl e Encounter Details Date Type Department Care Team (Late st Contact Info) Description 09/24/2019 Transcribed Document [facility] [place] [address] [place] [address] ProviderLeón MD [address] [place] [address] Social History Tobacco Use Types [...] - Historical ProviderMD - 09/24/2019 6:15 AM INSTITUTIONAL CUSTODIAN Patient: PAM FENG Age: 24 years Sex: [...] than usual; +abdominal cramping. No med taken PERMIT REVIEW ASSISTANT . History of Present Illness 24-year-old female [...] started fertility medication last Monday. Patient sees toll transmission worker Chandan Lucas. Patient is with history of [...] EST Height Source Stated Height Entry Format [place] Height/Length, IRAQI (ft) 5 ft Height/Length IRAQI 5 Inch CLINICALHEIGHT 165.1 cm [place] Body Weight 56.59 kg Weight Source, ED Standing scale Weight Entry Format [place] Weight Nauruan lb 220 lb CLINICALWEIGHT 100 [...] Triage: ED C-SSRS: ED Clinical Reconciliation: ED marble mechanic helper: HCG Urine Qualitative: LENNY Prep: NaCl 0.9% [...] Color Red Urine Appearance Cloudy Urine Specific [place] 1.007 Urine pH Dipstick 5.5 LOW Urine [...] % 27.7 % Lymph # 2.10 K/uL [place] % 7.9 % [place] # 0.60 K/uL Eos % 4.2 % Eos # 0.32 K/uL Baso % 0.4 % Baso # 0.03 K/uL Slide Review No IG# 0 x10(3)/uL IG% 0 % PT 9.6 Second(s) INR 0.9 PTT 25.4 Second(s) Wet Prep See Result LENNY Prep See Result Specimen Type swab . Radiology results: Radiology Results (Last 48 hours) [id number] -- 09/24/2019 05:36 US Transvaginal Non Ob [...] yesterday. Rosenda Meyer MD Electronically signed by [facility] Conversion Front End Specialist Cerner at 02/19/2023 9:58 AM CDT documented in this encounter Plan of Treatment Not on file documented as of this encounter Visit Diagnoses Not on filedocumented in this encounter
--- OUTSIDE RECORDS SUMMARY | 2025-10-09 12:09 | XMS_ITS | Referral Summary ---
Author Organization [employer] ([place], [place], [place], [place], [place]) Address [address] [place] [address] Care Team Providers Care Dietetic Assistant Name Role Phone Unavailable Primary Care [...]
--- OUTSIDE RECORDS SUMMARY | 2025-10-09 12:09 | XMS_ITS | Encounter Summary ---
Author Organization [employer] ([place], [place], [place], [place], [place]) Address [address] [place] [address] Care Team Providers Care Geriatric Nurse Practitioner Name Role Phone Unavailable Primary Care Provider Unavailabl e Encounter Details Date Type Department Care Team (Late st Contact Info) Description 11/25/[address] [facility] [place] [address] [place] [address] ProviderLeón MD [address] [place] [address] Social History Tobacco Use Types [...] - León ProviderMD - 11/25/2020 10:52 AM QUARRY PLANT CRUSHER OPERATOR ED Assessment Entered On: 11/25/2020 14:03 EST Performed On: 11/25/2020 14:01 EST by LALI SEAY RN ED Quick Look Assessment Level of Consciousness : Alert, Awake Affect/Behavior : Appropriate, Calm, Cooperative Orientation : Oriented x 4 Skin Temperature : Warm Skin Description : Dry, [place] LALI SEAY RN - 11/25/2020 14:01 EST ED General-Functional Assess Information Obtained From : Patient Preferred Communication Mode : Verbal Communication Barrier : None Primary Language : Citizen Of [place] Any Spiritual/Cultural Needs or Requests : No [...] LALI SEAY RN - 11/25/2020 14:01 EST [place] Coma Canelo Best Motor Response : Obey commands [place] Best Verbal Response : Oriented [place] Eye Opening Response : Spontaneous [place] Coma Score : 15 LALI SEAY RN - 11/25/2020 14:01 EST Electronically signed by [facility] Conversion Biochemistry Teacher Cerner at 02/19/2023 10:00 AM CDT documented in this encounter Plan of Treatment Not on file documented as of this encounter Visit Diagnoses Not on filedocumented in this encounter
--- OUTSIDE RECORDS SUMMARY | 2025-10-09 12:09 | XMS_ITS | Clinical Summary ---
Author Organization [facility] Address [address] [place] [address] Care Team Providers Care Supervisor Dry Cell Assembly Name Role Phone Nadia Drummond MD Primary Care Provider [phone] Allergies Active Allergy Reactions Criticality Noted Date [...] Description 07/28/2025 11:15 AM EDT Office Visit [facility] ENDOCR[facility] [address] [place] [address] Cheri Harden DO Acquired hypothyroidism (Primary Dx); Solitary thyroid nodule 07/28/2025 Travel 07/24/2025 Telephone [facility] END[facility]CR[facility] [address] [place] [address] Cheri Harden DO from Last 3 Months [...] Caitlin Obesity Mother Caitlin Obesity Paternal Grandmother [place] Relation Name Status Comments Brother Alive Father Anam Alive Maternal Grandfather Aren Maternal Grandmother Yvette Mother Caitlin Alive Paternal Grandfather Paternal Grandmother [place] Social History Tobacco Use Types Packs/Day Years [...] Visit [facility] ENDOCRIN[facility]Y [address] [place] [address] Cheri Harden, [address] [place] [address] Health Maintenance Due Date Last Done Comments [...] 02/16/2022 3:08 PM EDT Performed at: - [facility] [address] [place] [id number] Blueprinting Machine Operator: Guillermo Choi PhD, Phone: [phone] Patient Fasting: N Charla [place] PA-C LAB BLOOD ORDERABLES Final Result [facility] (AMBULATORY) [address] [place] [address], [facility] [address] [place] [address], from Last 3 Months or Most Recently Relevant to Health Maintenance Insurance [place] [address] [facility] PPO Care Teams Supervisor Dry Cell Assembly Relationship Specialty Start Date End Date Nadia Drummond MD PCP - General Family Medicine 07/15/20
--- OUTSIDE RECORDS SUMMARY | 2025-10-09 12:09 | XMS_ITS | Encounter Summary ---
Author Organization [employer] ([place], [place], [place], [place], [place]) Address [address] [place] [address] Care Team Providers Care Liberal Arts Teacher Name Role Phone Unavailable Primary Care Provider Unavailabl e Encounter Details Date Type Department Care Team (Late st Contact Info) Description 09/26/2019 Transcribed Document [facility] [place] Family Medicine [address] [place] [address] ProviderLeón MD [address] [place] [address] Social History Tobacco Use Types [...] - Historical ProviderMD - 09/26/2019 11:00 AM SMART ENERGY SPECIALIST Urine Culture Collected: 09/24/2019 Complete Body site: Specimen Type: U CleanCatch 09/26/2019 09:56 09/26/2019 11:00 (KINGSLEY MEJIA PA-C) Reviewed by Provider, No further action required 3 or more organisms suggesting contamination documented in this encounter Plan of Treatment Not on file documented as of this encounter Visit Diagnoses Not on filedocumented in this encounter
--- OUTSIDE RECORDS SUMMARY | 2025-10-09 12:09 | XMS_ITS | Encounter Summary ---
Author Organization [employer] ([place], [place], [place], [place], [place]) Address [address] [place] [address] Care Team Providers Care Data Center Architect Name Role Phone Unavailable Primary Care Provider Unavailabl e Encounter Details Date Type Department Care Team (Late st Contact Info) Description 11/25/2020 Transcribed Document [facility] [place] Family Medicine [facility] [place] [address] ProviderLeón MD [address] [place] [address] Social History Tobacco Use Types [...] - Historical ProviderMD - 11/25/2020 3:34 PM PRECISION MARKET INSIGHTS Electronically signed by [facility] Conversion Variety Performer Cerner at 02/19/2023 9:52 AM CDT documented in this encounter Plan of Treatment Not on file documented as of this encounter Visit Diagnoses Not on filedocumented in this encounter
--- OUTSIDE RECORDS SUMMARY | 2025-10-09 12:09 | XMS_ITS | Encounter Summary ---
Author Organization [employer] ([place], [place], [place], [place], [place]) Address [address] [place] [address] Care Team Providers Care Family Development Extension Specialist Name Role Phone Unavailable Primary Care Provider Unavailabl e Encounter Details Date Type Department Care Team (Late st Contact Info) Description 11/25/2020 Transcribed Document [facility] [place] Family Medicine [address] [place] [address] ProviderLeón MD [address] [place] [address] Social History Tobacco Use Types [...] León Joseph MD - 11/25/2020 4:12 PM NEWS PRODUCER [facility] [place] [address] PAM FENG :1995 Visit Time:11/25/2020 [...] range between ( 0.0 and 7.0 ) [place]ois #: 0.55 K/uL -- Normal range between ( 0.16 and 1.00 ) Eos #: 0.12 x10(3)/uL -- Normal range between ( 0.00 and 0.80 ) [place]ois %: 6.1 % -- Normal range between [...] instructions at home: Managing pain ??? Take avik-fjf-utertmd and prescription medicines only as told by [...] Reviewed: 02/02/2018 Elsevier Patient Education ?? 2020 [employer]. Emergency Awareness and Preventative Care STROKE is [...] Assistance with quitting is available by contacting 5-780-MMMQ-NOW. This is a free resource providing counseling, [...] was given the opportunity to ask questions. Patient/Kinesiologist Name: Patient/Kinesiologist Signature: Relationship to Patient: Clinician/Hospital Kinesiologist Signature: Please Provide a Telephone Number Where You Can Be Reached: Is it Permissible To Leave a Message? Date: documented in this encounter Plan of Treatment Not on file documented as of this encounter Visit Diagnoses Not on filedocumented in this encounter
--- OUTSIDE RECORDS SUMMARY | 2025-10-09 12:09 | XMS_ITS | Encounter Summary ---
Author Organization [employer] ([place], [place], [place], [place], [place]) Address [address] [place] [address] Care Team Providers Care Clearance Center Manager Name Role Phone Unavailable Primary Care Provider Unavailabl e Encounter Details Date Type Department Care Team (Late st Contact Info) Description 11/25/2020 Transcribed Document [facility] [place] Family Medicine [address] [place] [address] ProviderLeón MD [address] [place] [address] Social History Tobacco Use Types [...] - Historical ProviderMD - 11/25/2020 11:11 AM DOORKEEPER ED POC - URINE HCG Entered On: 11/25/2020 14:40 EST Performed On: 11/25/2020 14:20 EST by LALI SEAY RN Point of Care Urine HCG HCG Result : Negative Internal Control Line Present : Yes Internal Control Background Clear : Yes LALI SEAY RN - 11/25/2020 14:39 EST Electronically signed by [facility] Conversion Marine Meteorologist Cerner at 02/19/2023 9:37 AM CDT documented in this encounter Plan of Treatment Not on file documented as of this encounter Visit Diagnoses Not on filedocumented in this encounter
--- OUTSIDE RECORDS SUMMARY | 2025-10-09 12:09 | XMS_ITS | Encounter Summary ---
Author Organization [facility] Address [address] [id number] Care Team Providers Care Benzol Still Operator Name Role Phone Pcp, No Primary Care Provider Nadia Todd MD Primary Care Provider [phone] Pcp, No Primary Care Provider Nadia Todd MD Primary Care Provider [phone] Encounter Details Date Type Department Care Team (Late st Contact Info) Description 11/05/2019 [facility] Historical OTTR [address] [place] [address] Marla Sin, [id number] [address] [place] [address] Social History Tobacco Use Types Packs/Day Years [...] EDT Procedure Visit Obstetrics & Gynecology [address] [place] [address] Tres Ybarra MD [address] [place] [address] documented as of this encounter Visit Diagnoses Not on filedocumented in this encounter Care Teams Benzol Still Operator Relationship Specialty Start Date End Date Pcp, No [address] [place] [address] PCP - General 08/07/21 08/08/21 Nadia Goodson MD [address] [place], [place] [id number] PCP - General 08/09/21 08/09/21 Pcp, No [address] [place] [address] PCP - General Family Medicine 07/08/22 01/16/23 Nadia Goodson MD [address] [place] [address] PCP - General 01/17/23 documented as of this encounter
[2025-10-09 12:15] VITALS: BP 116/64; PULSE 79; RESP 20; O2SAT 99
[2025-10-09 12:45] VITALS: BP 122/69; PULSE 71
== END 2025-10-09 23:59 | disposition home or self-care (01) ==
LOC: INF 11:59
PROVIDERS: PCP Family Medicine; Visit Provider Obstetrics & Gynecology
DX: O99.019 Anemia complicating pregnancy, unspecified trimester (principal); Z3A.00 Weeks of gestation of pregnancy not specified
CPT/HCPCS: 96365; J1756

== ENCOUNTER 2025-10-13 09:51 | Outpatient (CLI) | payer BC, SELFPAY ==
--- NOTE | 2025-10-13 11:30 | US_ITS ---
PROCEDURE: US OB TRANSVAGINAL CLINICAL INDICATION: cervical length only Contractions COMPARISON: US US OB TRANSVAGINAL from 07/11/2025 FINDINGS: Transabdominal and transvaginal sonographic images of the pelvis were obtained. The following parameters are obtained: From her established due date she is 19weeks 0 days Viable fetus in the breech presentation with an anterior placenta grade 1. The placenta measures 5.2 cm away from the internal cervical os transvaginally. The umbilical cord is overlying the internal cervical os. The cervix measures 5.0-5.15 cm in length transvaginally. There is no cervical funneling. heart rate: 161bpm bpm. Amniotic fluid: Subjectively appears normal. Anatomy scan was not performed. IMPRESSION: 1. Viable fetus in the breech present presentation with an anterior placenta grade 1. The placenta is 5.2 cm away from the internal cervical os. 2. The cervix measures 5.0-5.15 cm in length 1 measured transvaginally. No funneling is seen. 3. The fluid subjectively appears normal. 4. Anatomical scan was not performed. Dictated by: Eduar Garcia MD 10/13/2025 14:37 Eduar Garcia MD in [place] 10/13/2025 14:37
== END 2025-10-13 23:59 | disposition home or self-care (01) ==
PROVIDERS: PCP Family Medicine; Visit Provider Nurse Practitioner
DX: O47.02 False labor before 37 completed weeks of gestation, second trimester (principal); O26.892 Other specified pregnancy related conditions, second trimester; R42 Dizziness and giddiness; R06.00 Dyspnea, unspecified; R07.89 Other chest pain; R00.2 Palpitations; R55 Syncope and collapse; Z3A.00 Weeks of gestation of pregnancy not specified
CPT/HCPCS: 76817; 93270

== ENCOUNTER 2025-10-15 13:57 | Outpatient (CLI) | payer BC, SELFPAY ==
[2025-10-15 14:06] VITALS: BP 116/74; PULSE 73; RESP 21; O2SAT 99
[2025-10-15] MEDS: IRON SUCROSE COMPLEX 200 MG in 0.9 % SODIUM CHLORIDE 100 ML 220 MG IV (14:07)
[2025-10-15 14:46] VITALS: BP 118/71; PULSE 74
[2025-10-15] MEDS: SODIUM CHLORIDE 0.9% 10ML FLUSH SYRINGE 10 ML IV (14:53)
== END 2025-10-15 23:59 | disposition home or self-care (01) ==
LOC: INF 13:58
PROVIDERS: PCP Family Medicine; Visit Provider Obstetrics & Gynecology
DX: M19.90 Unspecified osteoarthritis, unspecified site (principal)
CPT/HCPCS: 96365; J1756

== ENCOUNTER 2025-10-22 12:50 | Outpatient (CLI) | payer BC, SELFPAY ==
--- OUTSIDE RECORDS SUMMARY | 2021-05-03 11:23 | XMS_ITS | Encounter Summary ---
Author Organization [facility] Address [address] [place] [address] Care Team Providers Care Plasma Specialist Name Role Phone Nadia Drummond MD Primary Care Provider [phone] Reason for Visit * Diagnostic Imaging (Routine) - Closed Specialty Diagnoses / Procedures Referred By Contac t Referred To Contact Radiology Diagnoses Hypothyroidism, unspecified type Procedures US Thyroid Cheri Harden DO [address] [place] [address] Phone: tel: fax: [facility] [address] [place] [address] Phone: tel: fax: Referral ID Status Reason Start Date Expiration Date Visits Re quested Visits Authorized [id number] Closed 05/03/2021 05/03/2022 1 1 Encounter Details Date Type Department Care Team (Late st Contact Info) Description 05/03/2021 12:23 PM EDT Hospital Encounter [facility] [address] [place] [address] Social History Tobacco Use Types [...] Description 11/03/2025 10:30 AM EST Office Visit [facility] [address] [facility] [address] [place] [address] Cheri Harden, [address] [facility] [address] [place] [address] documented as of this encounter Procedures Procedure [...] documented as of this encounter Care Teams Plasma Specialist Relationship Specialty Start Date End Date Nadia Drummond MD PCP - General Family Medicine 07/15/20 documented as of this encounter
--- OUTSIDE RECORDS SUMMARY | 2022-10-13 09:42 | XMS_ITS | Encounter Summary ---
[facility] Address [address] [place] [address] Care Team Providers Care Frankfurter Inspector Name Role Phone Nadia Drummond MD Primary Care Provider [phone] Reason for Visit * Diagnostic Imaging (Routine) - Closed Specialty Diagnoses / Procedures Referred By Idalia caruso Referred To Contact Radiology Diagnoses Solitary thyroid nodule Procedures US Thyroid Cheri Harden DO [address] [facility] [address] [place] [address] Phone: tel: fax: Referral ID Status Reason Start Date Expiration Date Visits Re quested Visits Authorized [id number] Closed 10/13/2022 10/13/2023 1 1 Encounter Details Date Type Department Care Team (Late st Contact Info) Description 10/13/2022 9:42 AM EST Hospital Encounter [facility] [address] [facility] [address] [place] [phone] Social History Tobacco Use Types Packs/Day [...] Description 11/03/2025 10:30 AM EST Office Visit [facility] [address] [facility] [address] [place] [address] Cheri Harden, DO [address] [address] documented as of this encounter Procedures Procedure [...] documented as of this encounter Care Teams Frankfurter Inspector Relationship Specialty Start Date End Date Nadia Drummond MD PCP - General Family Medicine 07/15/20 documented as of this encounter
--- OUTSIDE RECORDS SUMMARY | 2025-06-07 04:00 | XMS_ITS ---
Author Organization [facility] Address [address] [place] [address] Phone [phone] Care Team Providers Care Straight Ruling Machine Operator Name Role Phone Page Velásquez Unavailable [phone] Migration, Provider Unavailable Unavailable REASON FOR VISIT EMR-Paul Encounters Encounter Location Date Provider Diagnosis [facility] [address] [place] [address] 06/07/2025 Provider Migration Plan Of Treatment No Information Progress Notes * PARDEEP FENGDOB:1995 (30 yo F)Acc No.[id number]:06/07/2025 Patient: PARDEEP CAST :1995 A ge:29 Y S ex:Female Address:[address] [facility] [address] Subjective: * Chief Complaints: * E MR-Paul * * Date:
--- OUTSIDE RECORDS SUMMARY | 2025-06-08 04:00 | XMS_ITS ---
Author Organization [facility] katy [facility] Address [address] [place] [address] Phone [phone] Care Team Providers Care Auto Service Instructor Name Role Phone Page Velásquez Unavailable [phone] Migration, Provider Unavailable Unavailable REASON FOR VISIT EMR-Paul Medications Medication SIG (Take, Route, Frequency, Duration) Notes Start Date End Date Status Ondansetron HCl 4 MG Tablet Oral Active Drospirenone-Ethinyl Estradiol 3-0.03 MG Tablet Oral Active Norethindrone 0.35 MG Tablet Oral Active EUTHYROX 75 MCG TABLET *Reorder from [facility] for eRx and Interaction Alerts* Active Saxenda 18 MG/3ML Solution Pen-injector Subcutaneous Active HYDROcodone-Acetaminophen 5-325 MG Tablet Oral Active metroNIDAZOLE 500 MG Tablet Oral Active Levothyroxine Sodium 25 MCG Tablet Oral Active hydroCHLOROthiazide 12.5 MG Tablet Oral Active BD PANKAJ 2ND GEN PEN NEEDLE 32 GAUGE X 32 *Reorder from [employer] for eRx and Interaction Alerts* Active Social History Social History Additional Details Category Social Info Options Details Migrated Social History Migrated Social History Tobacco Years: Never smoker 07/12/2021 Encounters Encounter Location Date Provider Diagnosis [facility] [address] [place] [address] 06/08/2025 Provider Migration Plan Of Treatment No Information Progress Notes * JUNG PREMAAYANACROWDOB:1995 (30 yo F)Acc No.[id number]:06/08/2025 Patient: PARDEEP CAST :1995 A ge:29 Y S ex:Female Address:[place], [address] Subjective: * Chief Complaints: * E MR-Paul [...] *Reorder from [facility] for eRx and Interaction Alerts*Saxenda 18 MG/3ML Solution Pen-injector Subcutaneous BD PANKAJ 2ND GEN PEN NEEDLE 32 GAUGE X 5/32 , Notes to Pharmacist: *Reorder from [facility] for eRx and Interaction Alerts*Levothyroxine Sodium 25 [...] *Reorder from [facility] for eRx and Interaction Alerts*Taking Saxenda 18 MG/3ML Solution Pen-injector Subcutaneous Taking BD PANKAJ 2ND GEN PEN NEEDLE 32 GAUGE X 5/32 , Notes to Pharmacist: *Reorder from [facility] for eRx and Interaction Alerts*Taking Levothyroxine Sodium 25 MCG Tablet Oral Taking Norethindrone 0.35 MG Tablet Oral * * Date:
--- NOTE | 2025-10-22 13:00 | CA_ITS ---
APPROVED REPORT EXAM: Comprehensive 2D, Doppler, and color-flow Echocardiogram Vocational Ed Instructor: Nancy Ingram RCS, RVS Ht: 5 ft 5 in Wt: 161lbs BSA: 1.80 BP: 106/65 mmHg Indications: 20weeks , SOA, Palpitations 2D Dimensions Left Atrium 2.92 cm F: 2.7 - 3.8 LA Volume 51.30 mL LA Volume Index 28.197411 mL/m2 (M/F) 16-34 M-Mode Dimensions RVDd 2.47 cm (0.9-2.6) LA Diam 3.91 cm (1.9-4.0) LVDd 4.94 cm (3.5-5.7) LVDs 3.22 cm (3.5-5.7) IVSd 0.82 cm (0.6-1.1) PWd 0.93 cm (0.6-1.1) EF (Teich) 63.80% EPSs 1.08 cm FS 34.80% EDV (Teich) 115.00 mL TAPSE 1.60 (<1.7) ESV (Teich) 41.60 mL LV Diastology E Decel Time 183 (160-240 msec) E/A Ratio 2.26 MED A' 8.60 cm/s LAT A' 12.40 cm/s Aortic Valve BENJAMÍN Index 1.16 cm2/m2 AoV Peak Miky. 129.0 (50-130 cm/s) AO Peak GR. 6.70 mmHg AO Mean GR. 3.80 (<5 mmHg) AO VTI 26.0 (18-25 cm) BENJAMÍN (VTI) 2.14 (2.5-4.5 cm2) Mitral Valve MV A Velocity 37.0 (40-130 cm/s) E/A Ratio 2.26 Pulmonary Valve PV Peak Velocity 94.0 (50-150 cm/s) AK End VMAX 126.0 cm/s Tricuspid Valve TR P. Velocity 137.00 cm/s RAP Estimate 10.00 mmHg RVSP 17.50 mmHg Left Ventricle The left ventricle is normal size. Left ventricular systolic function is normal. The left ventricular ejection fraction is within the normal range. There is normal left ventricular wall thickness. There is normal LV segmental wall motion. The left ventricular diastolic function is normal. LVEF is 55% Right Ventricle The right ventricle is normal size. The right ventricular systolic function is normal. Atria The left atrium size is normal. The right atrium size is normal. There is indeterminate color Doppler evidence of interatrial shunt. Aortic Valve The aortic valve opens well. There is no hemodynamically significant aortic valvular stenosis. No aortic regurgitation is present. Mitral Valve The mitral valve is normal in structure. No evidence of mitral valve stenosis. Trace mitral regurgitation is present. Tricuspid Valve The tricuspid valve leaflets are thin and pliable. Trace tricuspid regurgitation. There is insufficient TR jet to estimate RVSP. Pulmonic Valve The pulmonary valve is grossly normal in structure. Trace pulmonic valve regurgitation is present. Great Vessels The aortic root is normal in size. IVC is normal in size and collapses >50% with inspiration. Pericardium There is no pericardial effusion. Other Information Study Quality: Fair Conclusion Normal biventricular systolic function. No significant valvular stenosis or regurgitation. There is indeterminate color Doppler evidence of interatrial shunt. In the setting of presence of symptoms and indeterminate presence of interatrial shunt, further evaluation with limited TTE plus agitated saline administration may be suggested. Electronically signed by : Francy Garcia MD 10/31/2025 07:09:38
--- OUTSIDE RECORDS SUMMARY | 2025-10-22 13:44 | XMS_ITS | Clinical Summary ---
Author Organization [facility] Address [address] [place] [address] Care Team Providers Care Apparel Stock Checker Name Role Phone Nadia Goodson MD Primary Care Provider [phone] Allergies Active Allergy Reactions Criticality Noted Date [...] Recorded Patient Health Questionnaire-2 Score 0 04/08/2025 [place] Depression Scale Answer Date Recorded [place] Depression Scale Total 0 02/23/2024 The thought [...] Contact Info) Description 02/09/2026 8:45 AM EDT Office Visit Obstetrics & Gynecology [address] [place] [address] Tres Ybrara MD [address] [place] [address] Health Maintenance Due Date Last Done Comments [facility]-/Child/Adol SDOH Screenings 1995 [facility]- SDOH Screenings 2011 [facility]-Adult SDOH Screenings 2011 [facility]-Hepatitis B Vaccines (1 of 3 - 19+ 3-dose series) 2012 [facility]-Varicella Vaccines (2 of 2 - 13+ 2-dose series) 05/27/2015 04/29/2015 [facility]-[id number]-17 Vaccine (3 - Moderna risk series) 01/06/2021 [...] Completed 025, 04/28/2025, 04/17/2025, Additional history exists HPV Vaccines (No Doses Required) Completed [facility]-HIB Vaccines Aged Out No longer e [...] Pap, Source Cx/Vagina 02/13/2025 12:50 PM EDT [facility] EER Referred ThinPrep Pap and HPV See Note 02/13/2025 12:50 PM EDT [facility] PAP, THINPREP Normal 02/13/2025 12:50 PM EDT [facility] High Risk HPV Normal 02/13/2025 12:50 PM EDT [facility] Swab Vaginal and cervical cytologic material / Unknown Non-blood Collection / Unknown 02/06/2025 8:23 AM EDT 02/06/2025 12:54 PM EDT Narrative [facility] ([facility] - 02/13/2025 12:50 PM EDT Authorized individuals can access the [employer] Enhanced Report with an [facility] Connect account using the following link. Your local lab can assist you in obtaining the patient report if you don't have a Connect account. [email or web address] Performed By: [facility] [address] [place] [id number] Knitting Demonstrator: Thompson Correa MD, PhD CLIA Number: [id number] SPECIMEN PART A. Cervical, Endocervical, Vaginal, ThinPrep Pap (Mirror Silverer) CYTOLOGY HX Date of Last Menstrual Period: N FINAL DIAGNOSIS INTERPRETATION: Negative for Intraepithelial Lesion or Malignancy. SPECIMEN ADEQUACY:Satisfactory for evaluation. Endocervical/transformation zone component present. Electronically Signed Out : [email or web address] Performed by: [facility] [address] [place] [address] [place] [address] eDsire Alvarez MD, HR-HPV: Negative Test performed by the FDA-approved [place] (Gen-Probe) APTIMA HPV test, which detects HPV genotypes: 16, 18, 31, 33, 35, 39, 45, 51, 52, 56, 58, 59, 66, and 68. This assay has been cleared for the specimen types listed below. Other specimen types have not been validated for this assay. -Clinician-collected ThinPrep Pap specimens. Performed by: [facility] [address] [place] [address] [place] [address] Desire Alvarez MD, Tres Ybarra MD LAB REF LAB BLOOD AND FLUID ORD Final Result [facility] [address] [place] [address] * HIV 1 & 2 Antibody/Antigen Screen (05/29/2023 10:20 AM EDT) HIV 1 & 2 Antibody/Antigen Screen Non Reactive Non Reactive 05/29/2023 2:06 PM EDT [facility] Comment:Screening for HIV 1 & 2 antibodies, and P24 antigen is NONREACTIVE. No confirmatory testing is required. Blood Venous blood specimen / Unknown Venipuncture / Unknown 05/29/2023 10:20 AM EDT 05/29/2023 1:01 PM EDT Result Mary Ybarra MD LAB BLOOD ORDERABLES Final Resu lt Performing Organization Address City/[facility]/ZIP Co de Phone Number [facility] [address] [place] [address] * Hepatitis C Antibody (05/29/2023 10:20 AM EDT) Hepatitis C Antibody Negative Negative 05/29/2023 2:02 PM EDT [facility] Blood Venous blood specimen / Unknown Venipuncture / Unknown 05/29/2023 10:20 AM EDT 05/29/2023 1:01 PM EDT Result Mary Ybarra MD LAB BLOOD ORDERABLES Final Resu lt Performing Organization Address City/[facility] Co de Phone Number HEALTHCARE [facility] [address] [place] [address] from Last 3 Months or Most Recently Relevant to Health Maintenance Insurance [employer] Advance Directives * Full Code (Latest Code Status on File) Date Activated Date Inactivated Comments 08/09/2021 8:28 PM 08/10/2021 1:42 PM Question Answer Comments Patient has decision-making capacity? Yes * Full Code Date Activated Date Inactivated Comments 08/08/2021 3:47 AM 08/09/2021 12:51 AM Question Answer Comments Patient has decision-making capacity? Yes Care Teams Apparel Stock Checker Relationship Specialty Start Date End Date Nadia Goodson MD [address] [place] [address] PCP - General 01/17/23
--- OUTSIDE RECORDS SUMMARY | 2025-10-22 13:44 | XMS_ITS | Encounter Summary ---
Author Organization [employer] ([place], [place], [place], [place], [place]) Address [address] [place] [address] Care Team Providers Care Mobile Service Rv Technician Name Role Phone Unavailable Primary Care Provider Unavailabl e Encounter Details Date Type Department Care Team (Late st Contact Info) Description 09/24/2019 Transcribed Document [facility] [place] Family Medicine [address] [place] [address] ProviderLeón MD [address] [place] [address] Social History Tobacco Use Types [...] - Historical ProviderMD - 09/24/2019 5:36 AM HACK SAW OPERATOR [place] Suicide Severity Rating Scale (C-SSRS) Entered On: 09/24/2019 6:25 EST Performed On: 09/24/2019 6:24 EST by RENETTA NIXON RN [place] Suicide Severity Rating Scale (C-SSRS) CSSRS Past [...]
--- OUTSIDE RECORDS SUMMARY | 2025-10-22 13:44 | XMS_ITS | Patient Health Record ---
Author Organization [facility] Address [address] [place] [id number] Phone [phone] Care Team Providers Care Hired Help Name Role Phone Page Velásquez Unavailable [phone] Migration, Provider Unavailable Unavailable Reason For Referral [...] Active EUTHYROX 75 MCG TABLET *Reorder from [employer] for eRx and Interaction Alerts* Active hydroCHLOROthiazide 12.5 MG Tablet Oral Active BD PANKAJ 2ND GEN PEN NEEDLE 32 GAUGE X / *Reorder from [employer] for eRx and Interaction Alerts* Active Saxenda 18 MG/3ML Solution Pen-injector Subcutaneous Active Social History Social History Additional Details Category Social Info Options Details Migrated Social History Migrated Social History Tobacco Years: Never smoker 07/12/2021 Problems Problem Type SNOMED Code ICD Code Onset Dates Problem Status W/U Status Risk Notes Problem History of suspected exposure to biological agent (15633614304198 ) Encounter for observation for suspected exposure to other biological agents ruled out (Z03.818) Active confirmed Encounters Encounter Location Date Provider Diagnosis [address] [phone] 06/07/2025 Provider Migration [address] [address] 06/08/2025 Provider Migration Plan Of Treatment No Information Insurance Providers Payer Name Payer Address Payer Phone Subscriber Number Group Number Insured Name Patient Relationship to Insured Coverage Start Date Coverage End Date [place] (Ppo) [address] [place] [address] [id number] JANE ALBARADO Spouse - patient is the spouse of the insured
--- OUTSIDE RECORDS SUMMARY | 2025-10-22 13:44 | XMS_ITS | Encounter Summary ---
Author Organization [employer] ([place], [place], [place], [place], [place]) Address [address] [place] [address] Care Team Providers Care Hand Finisher Name Role Phone Unavailable Primary Care Provider Unavailabl e Encounter Details Date Type Department Care Team (Late st Contact Info) Description 09/24/2019 Transcribed Document [facility] [place] Family Medicine [address] [place] [address] ProviderLeón MD [address] [place] [address] Social History Tobacco Use Types [...] León Joseph MD - 09/24/2019 5:36 AM SUPERINTENDENT POLICE ED Assessment Entered On: 09/24/2019 6:25 EST Performed On: 09/24/2019 6:24 EST by RENETTA NIXON RN ED Quick Look Assessment Level of Consciousness : Alert, Awake RENETTA NIXON RN - 09/24/2019 6:24 EST ED General-Functional Assess Information Obtained From : Patient Communication Barrier : None Primary Language : Italian Any Spiritual/Cultural Needs or Requests : No [...] RN) EENT Assessment EENT Assessment WDL : [facility] HUSSAINRENETTA RN - 09/24/2019 6:24 EST Cardiovascular ASMT, ED Cardiovascular Assessment WDL : [facility] RENETTA NIXON RN - 09/24/2019 6:24 EST Pulses Grid Radial Pulse, Left : 2+ normal Radial Pulse, Right : 2+ normal RENETTA NIXON RN - 09/24/2019 6:24 EST Respiratory Respiratory Assessment WDL : [facility] RENETTA NIXON RN - 09/24/2019 6:24 EST Breath Sounds Assessment Grid All Lobes Breath Sounds : Clear RENETTA NIXON RN - 09/24/2019 6:24 EST Gastrointestinal ED Gastrointestinal Assessment WDL : [facility] with exceptions Gastrointestinal Symptoms : Abdominal pain RENETTA NIXON RN - 09/24/2019 6:24 EST Genitourinary Assessment, ED Genitourinary Assessment WDL : [facility] with exceptions Genitourinary Symptoms : Vaginal bleeding RENETTA NIXON RN - 09/24/2019 6:24 EST Musculoskeletal Musculoskeletal Assessment WDL : [facility] RENETTA NIXON RN - 09/24/2019 6:24 EST Integumentary Assessment Integumentary Assessment WDL : [facility] RENETTA NIXON RN - 09/24/2019 6:24 EST Neurologic ASMT, ED Neurologic Assessment WDL : [facility] RENETTA NIXON RN - 09/24/2019 6:24 EST Electronically signed by Jimena [facility] Conversion Proof Inspector Cerner at 02/19/2023 9:43 AM CDT documented in this encounter Plan of Treatment Not on file documented as of this encounter Visit Diagnoses Not on filedocumented in this encounter
--- OUTSIDE RECORDS SUMMARY | 2025-10-22 13:45 | XMS_ITS | Encounter Summary ---
Author Organization [employer] ([place], [place], [place], [place], [place]) Address [address] [place] [address] Care Team Providers Care Jukebox Operator Name Role Phone Unavailable Primary Care Provider Unavailabl e Encounter Details Date Type Department Care Team (Late st Contact Info) Description 09/24/2019 Transcribed Document [facility] [place] [address] [place] [address] ProviderLeón MD [address] [place] [address] Social History Tobacco Use Types [...] León Joseph MD - 09/24/2019 8:33 AM CLIENT ANALYST Pain Assessment Entered On: 09/24/2019 9:40 EST [...]
--- OUTSIDE RECORDS SUMMARY | 2025-10-22 13:45 | XMS_ITS | Encounter Summary ---
Author Organization [employer] ([place], [place], [place], [place], [place]) Address [address] [place] [address] Care Team Providers Care Mini Lab Operator Name Role Phone Unavailable Primary Care Provider Unavailabl e Encounter Details Date Type Department Care Team (Late st Contact Info) Description 09/24/2019 Transcribed Document [facility] [place] Family Medicine [facility] [place] [address] ProviderLeón MD [address] [place] [address] Social History Tobacco Use Types [...] - León ProviderMD - 09/24/2019 9:17 AM APPLICATIONS CHEMIST Electronically signed by Jimena [facility] Conversion Lead Pressman Cerner at 02/19/2023 9:55 AM CDT documented in this encounter Plan of Treatment Not on file documented as of this encounter Visit Diagnoses Not on filedocumented in this encounter
--- OUTSIDE RECORDS SUMMARY | 2025-10-22 13:45 | XMS_ITS | Encounter Summary ---
Author Organization [employer] ([place], [place], [place], [place], [place]) Address [address] [place] [address] Care Team Providers Care Clerk General Name Role Phone Unavailable Primary Care Provider Unavailabl e Encounter Details Date Type Department Care Team (Late st Contact Info) Description 09/24/[address] [facility] [place] Family Medicine [facility] [place] [address] ProviderLeón MD [facility] [place] [address] Social History Tobacco Use Types [...] - León ProviderMD - 09/24/2019 5:36 AM MAKEUP ARTISTRY INSTRUCTOR ED Triage Entered On: 09/24/2019 5:47 EST Performed On: 09/24/2019 5:42 EST by MINDI WONG SHUTTLELESS LOOM WEAVER Triage Across the Room Triage Date/Time : 09/24/2019 5:42 EST Chief Complaint : Pt c/o fever and vaginal bleeding x2 days. Pt stated she is on her period but the bleeding is more than usual; +abdominal cramping. No med taken AUTO BODY MAN MINDI WONG RN - 09/24/2019 5:42 EST MINDI WONG RN - 09/24/2019 5:42 EST DCP GENERIC CODE Tracking Group : [facility] ED [place] MINDI WONG RN - [...] 09/24/2019 05:47:35 EST) Problems(Active) Asthma (SNOMED CT :180464967 ) Name of Problem: Asthma ; Recorder: RAJNI RAMIREZ RN; Confirmation: Confirmed ; Classification: Medical ; Code: 590611819 ; Contributor System: PowerChart ; Last Updated: 09/01/2018 18:05 EDT ; Life Cycle Date: 09/01/2018 ; Life Cycle Status: Active ; Vocabulary: SNOMED CT Hypothyroid (SNOMED CT :34223640 ) Name of Problem: Hypothyroid ; Recorder: RAJNI RAMIREZ RN; Confirmation: Confirmed ; Classification: Medical ; Code: 23130544 ; Contributor System: PowerChart ; Last Updated: 09/01/2018 18:05 EDT ; Life Cycle Date: 09/01/2018 ; Life Cycle Status: Active ; Vocabulary: SNOMED CT PCOS (polycystic ovarian syndrome) (SNOMED CT :316026697 ) Name of Problem: PCOS (polycystic ovarian syndrome) ; Recorder: RAJNI RAMIREZ RN; Confirmation: Confirmed ; Classification: Medical ; Code: 981923949 ; Contributor System: FashionGuide ; Last Updated: 09/01/2018 18:05 EDT ; Life Cycle Date: 09/01/2018 ; Life Cycle Status: Active ; Vocabulary: SNOMED CT Diagnoses(Active) Abdominal pain Date: 09/24/2019 ; Diagnosis Type: Reason For Visit ; Confirmation: Complaint of ; Clinical Dx: Abdominal pain ; Classification: Medical ; Clinical Service: Emergency medicine ; Code: PNED ; Probability: 0 ; Diagnosis Code: [id number] Fever Date: 09/24/2019 ; Diagnosis Type: Reason For Visit ; Confirmation: Complaint of ; Clinical Dx: Fever ; Classification: Medical ; Clinical Service: Emergency medicine ; Code: PNED ; Probability: 0 ; Diagnosis Code: [id number] Vaginal bleeding Date: 09/24/2019 ; Diagnosis Type: Reason For Visit ; Confirmation: Complaint of ; Clinical Dx: Vaginal bleeding ; Classification: Medical ; Clinical Service: Emergency medicine ; Code: PNED ; Probability: 0 ; Diagnosis Code: [id number] ED Height and Weight Height Source : Stated Height Entry Format : [place] Height, Feet : 5 ft(Converted to: 152 cm, 60 Inch) Height, Inches : 5 Inch(Converted to: 0 ft 5 Inch, 12.70 cm) Clinical Height : 165.1 cm Weight Source, ED : Standing scale Weight Entry Format : [place] Weight, Pounds : 220 lb Clinical Dosing Weight : 100 kg Body Surface Area (BSA) : 2.06 m2 Body Mass Index : 36.7 kg/m2 (HI) [place] Body Weight (IBW) : 56.59 kg MINDI [...] - 09/24/2019 5:42 EST Electronically signed by [facility] Conversion In File Operator Cerner at 02/19/2023 9:39 AM CDT documented in this encounter Plan of Treatment Not on file documented as of this encounter Visit Diagnoses Not on filedocumented in this encounter
--- OUTSIDE RECORDS SUMMARY | 2025-10-22 13:45 | XMS_ITS | Encounter Summary ---
Author Organization [employer] ([place], [place], [place], [place], [place]) Address [address] [place] [address] Care Team Providers Care Stacking Machine Operator Name Role Phone Unavailable Primary Care Provider Unavailabl e Encounter Details Date Type Department Care Team (Late st Contact Info) Description 09/24/2019 Transcribed Document [facility] [place] Family Medicine [address] [place] [address] ProviderLeón MD [address] [place] [address] Social History Tobacco Use Types [...] León Joseph MD - 09/24/2019 10:05 AM BLENDING TANK [place] [address] PAM FENG :1995 Visit Time:09/24/2019 Your Visit [...] fever and or persistent vomiting. Where: [address] [facility] [address] [place] [address]- Business (1) Allergies amoxicillin (C/O - vomiting) [...] range between ( 1.0 and 7.0 ) [place] #: 0.60 K/uL -- Normal range between ( 0.24 and 0.82 ) Eos #: 0.32 K/uL -- Normal range between ( 0.04 and 0.54 ) [place] %: 7.9 % -- Normal range between [...] ) Urine Bilirubin Dipstick: Negative Urine Specific [place]: 1.007 -- Normal range between ( 1.005 [...] 10/23/2006 Document Revised: 11/24/2017 Document Reviewed: 11/24/2017 [employer] Interactive Patient Education ?? 2019 NextCare. Emergency Awareness and Preventative Care STROKE is [...] Assistance with quitting is available by contacting 0-040-KAAS-NOW. This is a free resource providing counseling, [...] was given the opportunity to ask questions. Patient/Vendor Management Specialist Name: Patient/Vendor Management Specialist Signature: Relationship to Patient: Clinician/Hospital Vendor Management Specialist Signature: Please Provide a Telephone Number Where You Can Be Reached: Is it Permissible To Leave a Message? Date: Electronically signed by Jimena, [facility] Conversion Laser Technician Kimebrly at 02/19/2023 9:54 AM CDT documented in this encounter Plan of Treatment Not on file documented as of this encounter Visit Diagnoses Not on filedocumented in this encounter
--- OUTSIDE RECORDS SUMMARY | 2025-10-22 13:47 | XMS_ITS | Encounter Summary ---
Author Organization [email or web address] ([place], [place], [place], [place], [place]) Address [address] [place] [address] Care Team Providers Care Molding Machine Operator Name Role Phone Unavailable Primary Care Provider Unavailabl e Encounter Details Date Type Department Care Team (Late st Contact Info) Description 09/26/2019 Transcribed Document [facility] [place] [address] [place] [address] ProviderLeón MD [address] [place] [address] Social History Tobacco Use Types [...] - Historical ProviderMD - 09/26/2019 11:00 AM QUARTZ ORIENTATOR Urine Culture Collected: 09/24/2019 Complete Body site: Specimen Type: U CleanCatch 09/26/2019 09:56 09/26/2019 11:00 (KINGSLEY MEJIA PA-C) Reviewed by Provider, No further action required 3 or more organisms suggesting contamination documented in this encounter Plan of Treatment Not on file documented as of this encounter Visit Diagnoses Not on filedocumented in this encounter
--- OUTSIDE RECORDS SUMMARY | 2025-10-22 13:47 | XMS_ITS | Clinical Summary ---
Author Organization [employer] ([place], [place], [place], [place], [place]) Address [address] [place] [address] Care Team Providers Care Manager Of Internal Name Role Phone Unavailable Primary Care Provider [...]
--- OUTSIDE RECORDS SUMMARY | 2025-10-22 13:47 | XMS_ITS | Encounter Summary ---
Author Organization [facility] Address [address] [id number] Care Team Providers Care Sew Out Operator Name Role Phone Pcp, No Primary Care Provider Nadia Todd MD Primary Care Provider [phone] Pcp, No Primary Care Provider Nadia Todd MD Primary Care Provider [phone] Encounter Details Date Type Department Care Team (Late st Contact Info) Description 11/05/2019 [facility] Historical OTTR [address] [place] [address] Marla Sin, [id number] [address] [place] [address] Social History Tobacco Use Types Packs/Day Years [...] EDT Office Visit Obstetrics & Gynecology [address] [place] [address] Tres Ybarra MD [address] [place] [address] documented as of this encounter Visit Diagnoses Not on filedocumented in this encounter Care Teams Sew Out Operator Relationship Specialty Start Date End Date Pcp, No [address] [place] [address] PCP - General 08/07/21 08/08/21 Nadia Goodson MD [address] [place], [place] [id number] PCP - General 08/09/21 08/09/21 Pcp, No [address] [place] [address] PCP - General Family Medicine 07/08/22 01/16/23 Nadia Goodson MD [address] [place] [address] PCP - General 01/17/23 documented as of this encounter
--- OUTSIDE RECORDS SUMMARY | 2025-10-22 13:47 | XMS_ITS | Encounter Summary ---
Author Organization [employer] ([place], [place], [place], [place], [place]) Address [address] [place] [address] Care Team Providers Care Cricket Coach Name Role Phone Unavailable Primary Care Provider Unavailabl e Encounter Details Date Type Department Care Team (Late st Contact Info) Description 11/25/2020 Transcribed Document [facility] [place] Family Medicine [address] [place] [address] ProviderLeón MD [address] [place] [address] Social History Tobacco Use Types [...] - Historical ProviderMD - 11/25/2020 11:11 AM DISTRICT GAUGER ED POC - URINE HCG Entered On: 11/25/2020 14:40 EST Performed On: 11/25/2020 14:20 EST by LALI SEAY RN Point of Care Urine HCG HCG Result : Negative Internal Control Line Present : Yes Internal Control Background Clear : Yes LALI SEAY RN - 11/25/2020 14:39 EST Electronically signed by Jimena [facility] [place] Conversion Environmental Health And Safety Manager Cerner at 02/19/2023 9:37 AM CDT documented in this encounter Plan of Treatment Not on file documented as of this encounter Visit Diagnoses Not on filedocumented in this encounter
--- OUTSIDE RECORDS SUMMARY | 2025-10-22 13:47 | XMS_ITS | Referral Summary ---
Author Organization [employer] ([place], [place], [place], [place], [place]) Address [address] [place] [address] Care Team Providers Care Boat Deckhand Name Role Phone Unavailable Primary Care Provider [...]
--- OUTSIDE RECORDS SUMMARY | 2025-10-22 13:47 | XMS_ITS | Encounter Summary ---
Author Organization [employer] ([place], [place], [place], [place], [place]) Address [address] [place] [address] Care Team Providers Care Piece Cutter Name Role Phone Unavailable Primary Care Provider Unavailabl e Encounter Details Date Type Department Care Team (Late st Contact Info) Description 09/24/2019 Transcribed Document [facility] [place] Family Medicine [address] [place] [address] ProviderLeón MD [address] [place] [address] Social History Tobacco Use Types [...] - Historical ProviderMD - 09/24/2019 7:56 AM SKINNER PELTS Vital Signs ED Entered On: 09/24/2019 8:38 [...]
--- OUTSIDE RECORDS SUMMARY | 2025-10-22 13:47 | XMS_ITS | Encounter Summary ---
Author Organization [employer] ([place], [place], [place], [place], [place]) Address [address] [place] [address] Care Team Providers Care Manager Support Name Role Phone Unavailable Primary Care Provider Unavailabl e Encounter Details Date Type Department Care Team (Late st Contact Info) Description 11/25/2020 Transcribed Document [facility] Radiology [address] [place] [address] Virgie Armendariz MD [address] [facility] Dept of Emergency Medicine [place], [place] [id number] Social History Tobacco Use Types Packs/Day Years [...] at maximum was 10 /10. , just HORSE GROOMER . The degree at present is moderate, [...] EST Height Source Stated Height Entry Format [place] Height/Length, LAO (ft) 5 ft Height/Length LAO 5 Inch CLINICALHEIGHT 165.1 cm [place] Body Weight 56.59 kg Weight Source, ED Critical estimated dosing weight Weight Entry Format Todd Weight Bengali lb 220 lb CLINICALWEIGHT 100 kg Body [...] % 26.1 % Lymph # 2.37 x10(3)/uL [place] % 6.1 % [place] # 0.55 K/uL Eos % 1.3 % Eos # 0.12 x10(3)/uL Baso % 0.3 % Baso # 0.03 x10(3)/uL Slide Review No IG# 0.03 x10(3)/uL IG% 0.30 % . Radiology results: Radiology Results (Last 48 hours) [id number] -- 11/25/2020 10:52 CT Head WO (11/25/2020 [...] instructions. Notes: I certify that the Physician Editorial Intern performed the services as delegated. I agree with the assessment, treatment plan and disposition of the patient as recorded by the Physician Editorial Intern. This document was created with [employer] dictation software and unidentified delta system freight car cleaner errors may be present.. . documented in this encounter Plan of Treatment Not on file documented as of this encounter Visit Diagnoses Not on filedocumented in this encounter
--- OUTSIDE RECORDS SUMMARY | 2025-10-22 13:47 | XMS_ITS | Encounter Summary ---
Author Organization [employer] ([place], [place], [place], [place], [place]) Address [address] [place] [address] Care Team Providers Care Professional Security Officer Name Role Phone Unavailable Primary Care Provider Unavailabl e Encounter Details Date Type Department Care Team (Late st Contact Info) Description 11/25/2020 Transcribed Document [facility] [place] [address] [place] [address] ProviderLeón MD [address] [place] [address] Social History Tobacco Use Types [...] - León ProviderMD - 11/25/2020 10:52 AM DIRECTOR OF HEMOPHILIA ED Assessment Entered On: 11/25/2020 14:03 EST Performed On: 11/25/2020 14:01 EST by LALI SEAY RN ED Quick Look Assessment Level of Consciousness : Alert, Awake Affect/Behavior : Appropriate, Calm, Cooperative Orientation : Oriented x 4 Skin Temperature : Warm Skin Description : Dry, [place] LALI SEAY RN - 11/25/2020 14:01 EST ED General-Functional Assess Information Obtained From : Patient Preferred Communication Mode : Verbal Communication Barrier : None Primary Language : [place] Any Spiritual/Cultural Needs or Requests : No [...] commands Canelo Best Verbal Response : Oriented Bernard Eye Opening Response : Spontaneous Bernard Coma Score : 15 LALI SEAY RN - 11/25/2020 14:01 EST Electronically signed by Jimena [facility] Conversion Yarn Tester Cerner at 02/19/2023 10:00 AM CDT documented in this encounter Plan of Treatment Not on file documented as of this encounter Visit Diagnoses Not on filedocumented in this encounter
--- OUTSIDE RECORDS SUMMARY | 2025-10-22 13:47 | XMS_ITS | Encounter Summary ---
Author Organization [employer] ([place], [place], [place], [place], [place]) Address [address] [place] [address] Care Team Providers Care Pattern Repair Person Name Role Phone Unavailable Primary Care Provider Unavailabl e Encounter Details Date Type Department Care Team (Late st Contact Info) Description 11/25/2020 Transcribed Document [facility] [place] Family Medicine [address] [place] [address] ProviderLeón MD [address] [place] [address] Social History Tobacco Use [...] - León ProviderMD - 11/25/2020 10:52 AM MEDIA PRODUCTION SUPPORT MANAGER ED Triage Entered On: 11/25/2020 11:06 EST [...] : 3 - Urgent Tracking Group : [facility] ED ALBERTO CHAVES RN - 11/25/2020 [...] 11/25/2020 11:06:17 EST) Problems(Active) Asthma (SNOMED CT :310556349 ) Name of Problem: Asthma ; Recorder: RAJNI RAMIREZ RN; Confirmation: Confirmed ; Classification: Medical ; Code: 701340513 ; Contributor System: PowerChart ; Last Updated: 09/01/2018 18:05 EDT ; Life Cycle Date: 09/01/2018 ; Life Cycle Status: Active ; Vocabulary: SNOMED CT Hypothyroid (SNOMED CT :27140792 ) Name of Problem: Hypothyroid ; Recorder: RAJNI RAMIREZ RN; Confirmation: Confirmed ; Classification: Medical ; Code: 76733982 ; Contributor System: PowerChart ; Last Updated: 09/01/2018 18:05 EDT ; Life Cycle Date: 09/01/2018 ; Life Cycle Status: Active ; Vocabulary: SNOMED CT PCOS (polycystic ovarian syndrome) (SNOMED CT :380028160 ) Name of Problem: PCOS (polycystic ovarian syndrome) ; Recorder: RAJNI RAMIREZ RN; Confirmation: Confirmed ; Classification: Medical ; Code: 141605910 ; Contributor System: ExtraFootie ; Last Updated: 09/01/2018 18:05 EDT ; Life Cycle Date: 09/01/2018 ; Life Cycle Status: Active ; Vocabulary: SNOMED CT Diagnoses(Active) Headache Date: 11/25/2020 ; Diagnosis Type: Reason For Visit ; Confirmation: Complaint of ; Clinical Dx: Headache ; Classification: Medical ; Clinical Service: Emergency medicine ; Code: PNED ; Probability: 0 ; Diagnosis Code: [id number] ED Height and Weight Height Source : Stated Height Entry Format : [place] Height, Feet : 5 ft(Converted to: 152 cm, 60 Inch) Height, Inches : 5 Inch(Converted to: 0 ft 5 Inch, 12.70 cm) Clinical Height : 165.1 cm Weight Source, ED : Critical estimated dosing weight Weight Entry Format : [place] Weight, Pounds : 220 lb Clinical Dosing Weight : 100 kg Body Surface Area (BSA) : 2.06 m2 Body Mass Index : 36.7 kg/m2 (HI) [place] Body Weight (IBW) : 56.59 kg ALBERTO [...] the text rendition version of the form. Electronically signed by Errol Hess Conversion Inbound Call Center Representative Cerner at 02/19/2023 9:55 AM CDT documented in this encounter Plan of Treatment Not on file documented as of this encounter Visit Diagnoses Not on filedocumented in this encounter
--- OUTSIDE RECORDS SUMMARY | 2025-10-22 13:47 | XMS_ITS | Encounter Summary ---
Author Organization Healthcare Address [address] [place] [address] Care Team Providers Care Casing Inspector Name Role Phone Pcp, No Primary Care Provider Nadia Todd MD Primary Care Provider [phone] Pcp, No Primary Care Provider Nadia Todd MD Primary Care Provider [phone] Encounter Details Date Type Department Care Team (Late st Contact Info) Description 10/31/2019 [facility] Encounter Historical OTTR [address] [place] [address] Provider, [address] [address] Social History Tobacco Use Types [...] EDT Office Visit Obstetrics & Gynecology [address] [place] [address] Tres Ybarra MD [address] [place] [address] documented as of this encounter Visit Diagnoses Not on filedocumented in this encounter Care Teams Casing Inspector Relationship Specialty Start Date End Date Pcp, No [address] [place] [address] PCP - General 08/07/21 08/08/21 Nadia Goodson MD [address] [place] [address] PCP - General 08/09/21 08/09/21 Pcp, No [address] [place] [address] PCP - General Family Medicine 07/08/22 01/16/23 Nadia Goodson MD [address] [place] [address] PCP - General 01/17/23 documented as of this encounter
--- OUTSIDE RECORDS SUMMARY | 2025-10-22 13:47 | XMS_ITS | Encounter Summary ---
Author Organization [employer] ([place], [place], [place], [place], [place]) Address [address] [place] [address] Care Team Providers Care Electrical Technician Instructor Name Role Phone Unavailable Primary Care Provider Unavailabl e Encounter Details Date Type Department Care Team (Late st Contact Info) Description 11/25/2020 Transcribed Document [facility] [place] Family Medicine [facility] [place] [address] ProviderLeón MD [address] [place] [address] Social History Tobacco Use Types [...] - Historical ProviderMD - 11/25/2020 3:34 PM GROCERY CLERK CHECKING Electronically signed by Jimena [facility] Conversion Reroller Hand Cerner at 02/19/2023 9:52 AM CDT documented in this encounter Plan of Treatment Not on file documented as of this encounter Visit Diagnoses Not on filedocumented in this encounter
--- OUTSIDE RECORDS SUMMARY | 2025-10-22 13:48 | XMS_ITS | Encounter Summary ---
Author Organization [employer] ([place], [place], [place], [place]) Address [address] [place] [address] Care Team Providers Care System Support Analyst Name Role Phone Unavailable Primary Care Provider Unavailabl e Encounter Details Date Type Department Care Team (Late st Contact Info) Description 11/25/2020 Transcribed Document [facility] [place] [address] [place] [address] ProviderLeón MD [address] [place] [address] Social History Tobacco Use Types [...] - Historical ProviderMD - 11/25/2020 10:52 AM PROJECT ARCHIVIST [place] Violence Assessment Entered On: 11/25/2020 14:03 [...]
--- OUTSIDE RECORDS SUMMARY | 2025-10-22 13:48 | XMS_ITS | Clinical Summary ---
Author Organization [facility] Address [address] [place] [address] Care Team Providers Care Speeder Hand Name Role Phone Nadia Drummond MD Primary Care Provider [phone] Allergies Active Allergy Reactions Criticality Noted Date [...] Description 07/28/2025 11:15 AM EDT Office Visit [facility] [address] [place] [address] Cheri Harden DO Acquired hypothyroidism (Primary Dx); Solitary thyroid nodule 07/28/2025 Travel 07/24/2025 Telephone [facility] [address] [place] [address] Cheri Harden DO from Last 3 Months [...] Caitlin Obesity Mother Caitlin Obesity Paternal Grandmother [place] Relation Name Status Comments Brother Alive Father Anam Alive Maternal Grandfather Aren Maternal Grandmother Yvette Mother Caitlin Alive Paternal Grandfather Paternal Grandmother [place] Social History Tobacco Use Types Packs/Day Years [...] Description 11/03/2025 10:30 AM EST Office Visit [facility] [address] [place] [address] Cheri Harden, [address] [place] [address] Health Maintenance Due Date Last Done Comments [...] PM EDT Performed at: - [facility] [address] [place] [phone] Academic Support Coordinator: Guillermo Choi PhD, Phone: [phone] Patient Fasting: N Charla Vegas PA-C LAB BLOOD ORDERABLES Final Result [facility] ([facility]) [address] [place] [address], [facility] [address] [place] [address], from Last 3 Months or Most Recently Relevant to Health Maintenance Insurance Formerly [facility] [place] [id number] [facility] PPO Care Teams Speeder Hand Relationship Specialty Start Date End Date Nadia Drummond MD PCP - General Family Medicine 07/15/20
--- OUTSIDE RECORDS SUMMARY | 2025-10-22 13:48 | XMS_ITS | Encounter Summary ---
Author Organization [employer] ([place], [place], [place], [place]) Address [address] [place] [address] Care Team Providers Care Automation And Controls Manager Name Role Phone Unavailable Primary Care Provider Unavailabl e Encounter Details Date Type Department Care Team (Late st Contact Info) Description 09/24/2019 Transcribed Document [facility] [place] [address] [place] [address] ProviderLeón MD [address] [place] [address] Social History Tobacco Use Types [...] - Historical ProviderMD - 09/24/2019 6:15 AM BARREL TURNER Patient: PAM FENG Age: 24 years Sex: [...] than usual; +abdominal cramping. No med taken CHURCH SUPERVISOR . History of Present Illness 24-year-old [...] started fertility medication last Monday. Patient sees director inpatient headache program Chandan Lucas. Patient is with history of [...] EST Height Source Stated Height Entry Format [place] Height/Length, ITALIAN (ft) 5 ft Height/Length ITALIAN 5 Inch CLINICALHEIGHT 165.1 cm [place] Body Weight 56.59 kg Weight Source, ED Standing scale Weight Entry Format [place] Weight Fijian lb 220 lb CLINICALWEIGHT 100 kg Body [...] Triage: ED C-SSRS: ED Clinical Reconciliation: ED balcony worker: HCG Urine Qualitative: LENNY Prep: NaCl 0.9% [...] Red Urine Appearance Cloudy Urine Specific [place] 1.007 Urine pH Dipstick 5.5 LOW Urine [...] Radiology results: Radiology Results (Last 48 hours) [id number] -- 09/24/2019 05:36 US Transvaginal Non Ob [...] yesterday. Rosenda Meyer MD Electronically signed by [facility] Conversion Business Applications Developer Cerner at 02/19/2023 9:58 AM CDT documented in this encounter Plan of Treatment Not on file documented as of this encounter Visit Diagnoses Not on filedocumented in this encounter
--- OUTSIDE RECORDS SUMMARY | 2025-10-22 13:48 | XMS_ITS | Encounter Summary ---
Author Organization [employer] ([place], [place], [place], [place]) Address [address] [place] [address] Care Team Providers Care Power Saw Operator Name Role Phone Unavailable Primary Care Provider Unavailabl e Encounter Details Date Type Department Care Team (Late st Contact Info) Description 11/25/2020 Transcribed Document [facility] [place] Family Medicine [address] [place] [address] ProviderLeón MD [address] [place] [address] Social History Tobacco Use Types [...] León Joseph MD - 11/25/2020 4:12 PM APPLIANCE ADJUSTER [facility] [place] [address] PAM FENG :1995 Visit Time:11/25/2020 Your [...] range between ( 0.0 and 7.0 ) Craven #: 0.55 K/uL -- Normal range between ( 0.16 and 1.00 ) Eos #: 0.12 x10(3)/uL -- Normal range between ( 0.00 and 0.80 ) Craven %: 6.1 % -- Normal range between [...] instructions at home: Managing pain ??? Take vtnb-lsd-gqafrlw and prescription medicines only as told by [...] Reviewed: 02/02/2018 Elsevier Patient Education ?? 2020 Divide. Emergency Awareness and Preventative Care STROKE is [...] Assistance with quitting is available by contacting 3-572-JKQZ-NOW. This is a free resource providing counseling, [...] was given the opportunity to ask questions. Patient/Tire Building Supervisor Name: Patient/Tire Building Supervisor Signature: Relationship to Patient: Clinician/Hospital Tire Building Supervisor Signature: Please Provide a Telephone Number Where You Can Be Reached: Is it Permissible To Leave a Message? Date: documented in this encounter Plan of Treatment Not on file documented as of this encounter Visit Diagnoses Not on filedocumented in this encounter
--- OUTSIDE RECORDS SUMMARY | 2025-10-22 13:48 | XMS_ITS | Encounter Summary ---
Author Organization [employer] ([place], [place], [place], [place], [place]) Address [address] [place] [address] Care Team Providers Care Office Clinician Name Role Phone Unavailable Primary Care Provider Unavailabl e Encounter Details Date Type Department Care Team (Late st Contact Info) Description 11/25/2020 Transcribed Document [facility] [place] [address] [place] [address] ProviderLeón MD [address] [place] [address] Social History Tobacco Use Types [...] - León ProviderMD - 11/25/2020 4:27 PM SCHOOL CHILD CARE ATTENDANT ED Discharge Entered On: 11/25/2020 16:27 EST [...] 16:27 EST Electronically signed by Jimena [facility] Conversion Deputy County Clerk Cerner at 02/19/2023 9:39 AM CDT documented in this encounter Plan of Treatment Not on file documented as of this encounter Visit Diagnoses Not on filedocumented in this encounter
--- OUTSIDE RECORDS SUMMARY | 2025-10-22 13:48 | XMS_ITS | Encounter Summary ---
Author Organization [employer] ([place], [place], [place], [place], [place]) Address [address] [place] [address] Care Team Providers Care Financial Service Representative Name Role Phone Unavailable Primary Care Provider Unavailabl e Encounter Details Date Type Department Care Team (Late st Contact Info) Description 11/25/2020 Transcribed Document [facility] [place] Family Medicine [address] [place] [address] ProviderLeón MD [address] [place] [address] Social History Tobacco Use Types [...] - Historical ProviderMD - 11/25/2020 10:52 AM SEO EXECUTIVE [place] Suicide Severity Rating Scale (C-SSRS) Entered On: 11/25/2020 14:40 EST Performed On: 11/25/2020 14:40 EST by LALI SEAY RN [place] Suicide Severity Rating Scale (C-SSRS) CSSRS Past Month Wish to be : No CSSRS Past Month Suicidal Thoughts : No CSSRS Lifetime Suicide Behavior : No Suicide Severity Rating Score : 0 Suicide Severity Rating : No Additional Care Required at this time LALI SEAY RN - 11/25/2020 14:40 EST Electronically signed by Errol Hess Conversion Knitting Machine Operator Automatic Cerner at 02/19/2023 9:50 AM CDT documented in this encounter Plan of Treatment Not on file documented as of this encounter Visit Diagnoses Not on filedocumented in this encounter
[2025-10-22 14:21] LABS: Iron 87 ug/dL (37-170)
[2025-10-22 14:58] LABS: Ferritin 78.7 ng/ml (6.24-137)
[2025-10-22 15:12] LABS: Vitamin B12 671 pg/mL (239-931)
[2025-10-22 15:33] LABS: Folate 13.60 ng/mL
[2025-10-23 06:15] LABS: Cytomegalovirus (CMV) Ab, IgG 3.00 U/mL (0.00-0.59); Cytomegalovirus (CMV) Ab, IgM <30.0 AU/mL (0.0-29.9)
[2025-10-27 14:11] LABS: Parvovirus B19, IgG 0.2 index (0.0-0.8); Parvovirus B19, IgM 0.1 index (0.0-0.8)
[2025-10-27 18:10] LABS: 1,25 Dihydroxy Vitamin D 213 pg/mL (.); 1,25-Dihydroxy, Vitamin D-2 11 pg/mL (.); 1,25-Dihydroxy, Vitamin D-3 202 pg/mL (.)
== END 2025-10-22 23:59 | disposition home or self-care (01) ==
LOC: RT 12:50
PROVIDERS: Obstetrics & Gynecology; PCP Family Medicine; Visit Provider Nurse Practitioner
DX: O26.899 Other specified pregnancy related conditions, unspecified trimester (principal); R42 Dizziness and giddiness; R06.00 Dyspnea, unspecified; R07.89 Other chest pain; R00.2 Palpitations; R55 Syncope and collapse; O21.0 Mild hyperemesis gravidarum; Z90.3 Acquired absence of stomach [part of]; Z20.828 Contact with and (suspected) exposure to other viral communicable diseases; Z3A.00 Weeks of gestation of pregnancy not specified
CPT/HCPCS: 36415; 82607; 82652; 82728; 82746; 83540; 84446; 84590; 84597; 86644; 86645; 86747; 86787; 93306

== ENCOUNTER 2025-10-23 12:54 | Outpatient (CLI) | payer BC, SELFPAY ==
--- OUTSIDE RECORDS SUMMARY | 2021-05-03 11:23 | XMS_ITS | Encounter Summary ---
Author [facility] Address [address] [place] [address] Care Team Providers Care Drilling Field Professional Name Role Phone Nadia Drummond MD Primary Care Provider [phone] Reason for Visit * Diagnostic Imaging (Routine) - Closed Specialty Diagnoses / Procedures Referred By Contac t Referred To Contact Radiology Diagnoses Hypothyroidism, unspecified type Procedures US Thyroid Cheri Harden DO [address] [place] [address] Phone: tel: fax: [facility] [address] [place] [address] Phone: tel: fax: Referral ID Status Reason Start Date Expiration Date Visits Re quested Visits Authorized [id number] Closed 05/03/2021 05/03/2022 1 1 Encounter Details Date Type Department Care Team (Late st Contact Info) Description 05/03/2021 12:23 PM EDT Hospital Encounter [facility] [address] [place] [address] Social History Tobacco Use Types [...] Description 11/03/2025 10:30 AM EST Office Visit [facility] [address] [facility] [address] [place] [address] Cheri Harden, [address] [facility] [address] [place] [address] documented as of this encounter Procedures Procedure [...] documented as of this encounter Care Teams Drilling Field Professional Relationship Specialty Start Date End Date Nadia Drummond MD PCP - General Family Medicine 07/15/20 documented as of this encounter
--- OUTSIDE RECORDS SUMMARY | 2022-10-13 09:42 | XMS_ITS | Encounter Summary ---
[facility] Address [address] [place] [address] Care Team Providers Care Senior Label Specialist Name Role Phone Nadia Drummond MD Primary Care Provider [phone] Reason for Visit * Diagnostic Imaging (Routine) - Closed Specialty Diagnoses / Procedures Referred By Idalia caruso Referred To Contact Radiology Diagnoses Solitary thyroid nodule Procedures US Thyroid Cheri Harden DO [address] [facility] [address] [place] [address] Phone: tel: fax: Referral ID Status Reason Start Date Expiration Date Visits Re quested Visits Authorized [id number] Closed 10/13/2022 10/13/2023 1 1 Encounter Details Date Type Department Care Team (Late st Contact Info) Description 10/13/2022 9:42 AM EST Hospital Encounter [facility] [address] [facility] [address] [place] [address] Social History Tobacco Use Types Packs/Day [...] Description 11/03/2025 10:30 AM EST Office Visit [facility] [address] [facility] [address] [place] [address] Cheri Harden, DO [address] [address] documented as of this encounter Procedures Procedure Name Priority Date/Time Associated Diagnosis Comments US THYROID Routine 10/13/2022 9:42 AM EST Solitary thyroid nodule documented in this encounter Results * US Thyroid (10/13/2022 9:42 AM EST) Narrative SYSTEMGENERATED, DOCUMENTATION - 10/13/2022 9:42 AM EST Please see performing physician's note for result. us Cheri Harden DO IMG US ORDERABLES Final R esult documented in this encounter Visit Diagnoses Not on filedocumented in this encounter Additional Health Concerns Infection Onset Date Last Indicated Resolved Time COVID Screen (preop/placement) 02/15/2022 02/15/2022 12/28/2023 12:11 PM EST documented as of this encounter Care Teams Senior Label Specialist Relationship Specialty Start Date End Date Nadia Drummond MD PCP - General Family Medicine 07/15/20 documented as of this encounter
--- OUTSIDE RECORDS SUMMARY | 2025-06-07 04:00 | XMS_ITS ---
Author Organization [facility] Address [address] [place] [address] Phone [phone] Care Team Providers Care Cardiovascular Operating Room Nurse Name Role Phone Page Velásquez Unavailable [phone] Migration, Provider Unavailable Unavailable REASON FOR VISIT EMR-Paul Encounters Encounter Location Date Provider Diagnosis [facility] [address] [place] [address] 06/07/2025 Provider Migration Plan Of Treatment No Information Progress Notes * PARDEEP FENGDOB:1995 (30 yo F)Acc No.[id number]:06/07/2025 Patient: PARDEEP CAST :1995 A ge:29 Y S ex:Female Address:[address] [facility] [address] Subjective: * Chief Complaints: * E MR-Paul * * Date:
--- OUTSIDE RECORDS SUMMARY | 2025-06-08 04:00 | XMS_ITS ---
Author Organization [facility] katy [facility] Address [address] [place] [address] Phone [phone] Care Team Providers Care Neuroscience Director Na Name Role Phone Page Velásquez Unavailable [phone] Migration, Provider Unavailable Unavailable REASON FOR VISIT EMR-Paul Medications Medication SIG (Take, Route, Frequency, Duration) Notes Start Date End Date Status Ondansetron HCl 4 MG Tablet Oral Active Drospirenone-Ethinyl Estradiol 3-0.03 MG Tablet Oral Active Norethindrone 0.35 MG Tablet Oral Active EUTHYROX 75 MCG TABLET *[facility] for eRx and Interaction Alerts* Active Saxenda 18 MG/3ML Solution Pen-injector Subcutaneous Active HYDROcodone-Acetaminophen 5-325 MG Tablet Oral Active metroNIDAZOLE 500 MG Tablet Oral Active Levothyroxine Sodium 25 MCG Tablet Oral Active hydroCHLOROthiazide 12.5 MG Tablet Oral Active BD PANKAJ 2ND GEN PEN NEEDLE 32 GAUGE X 32 *Reorder from [employer] for eRx and Interaction Alerts* Active Social History Social History Additional Details Category Social Info Options Details Migrated Social History Migrated Social History Tobacco Years: Never smoker 07/12/2021 Encounters Encounter Location Date Provider Diagnosis [facility] [address] [place] [address] 06/08/2025 Provider Migration Plan Of Treatment No Information Progress Notes * JUNG PREMAAYANACROWDOB:1995 (30 yo F)Acc No.[id number]:06/08/2025 Patient: PARDEEP CAST :1995 A ge:29 Y S ex:Female Address:[address], [address] Subjective: * Chief Complaints: * E MR-Paul [...] TABLET , Notes to Pharmacist: *Reorder from [facility] for eRx and Interaction Alerts*Saxenda 18 MG/3ML Solution Pen-injector Subcutaneous BD PANKAJ 2ND GEN PEN NEEDLE 32 GAUGE X 5/32 , Notes to Pharmacist: *Reorder from [facility] for eRx and Interaction Alerts*Levothyroxine Sodium 25 MCG Tablet Oral Norethindrone 0.35 MG Tablet Oral Taking HYDROcodone-Acetaminophen 5-325 MG Tablet Oral Taking hydroCHLOROthiazide 12.5 MG Tablet Oral Taking metroNIDAZOLE 500 MG Tablet Oral Taking Drospirenone- Ethinyl Estradiol 3-0.03 MG Tablet Oral Taking Ondansetron HCl 4 MG Tablet Oral Taking EUTHYROX 75 MCG TABLET , Notes to Pharmacist: *Reorder from [facility] for eRx and Interaction Alerts*Taking Saxenda 18 MG/3ML Solution Pen-injector Subcutaneous Taking BD PANKAJ 2ND GEN PEN NEEDLE 32 GAUGE X 5/32 , Notes to Pharmacist: *Reorder from [facility] for eRx and Interaction Alerts*Taking Levothyroxine Sodium 25 MCG Tablet Oral Taking Norethindrone 0.35 MG Tablet Oral * * Date:
--- NOTE | 2025-10-23 13:00 | US_ITS ---
PROCEDURE: US OB /MATERNAL DETAIL CLINICAL INDICATION: eval and treat COMPARISON: US US OB TRANSVAGINAL from 07/11/2025 US US OB TRANSVAGINAL from 10/13/2025 FINDINGS: Transabdominal sonographic images of the pelvis were obtained. From her established due date she is 20 weeks 3 days. Single viable intrauterine gestation. Cephalic position. Placenta: Fundalplacenta grade 1. There is an average amount of fluid. The cervix appears satisfactory. Closed and measuring 3.1 cm in length. Complete survey performed and was unremarkable on the submitted images as in PACS. No discrete anomalies identified on survey imaging by technologist. Active fetus. Three-vessel cord with satisfactory umbilical cord insertion. 4- chamber heart noted. Situs, aortic arch, LVOT, RVOT, three-vessel view appear normal. Survey of brain & ventricles Unremarkable. Cerebellum, thalamus, choroid plexus, cisterna magna appear normal. Face and neck survey unremarkable. Profile, nasion, lips and nose appeared normal. Diaphragm and chest views unremarkable. Abdomen: Both kidneys noted and unremarkable. Stomach and bladder noted and satisfactory. Spine: Survey of the spine satisfactory with no anomalies identified nor imaged. Cervical, thoracic, lower spine appear normal. Both arms and legs noted. Amniotic Fluid: Adequate. MVP 3.09 cm Measurements: Average ultrasound age 20weeks 2days. Estimated due date by ultrasound age 0503/10/2026. Estimated weight 327g BPD = 20weeks 2days HC = 20weeks 2days AC = 20weeks 2days FL = 19weeks 6days Growth Percentile= 25 Heart Rate = 149bpm Cerebellum = 20weeks Humerus = 20weeks 1day HC/AC is 1.18 FL/BPD is 0.66 FL/AC is 0.21 IMPRESSION: 1. Viable fetus in the cephalic presentation with a fundal placenta grade 1. 2. The fluid is within normal limits with an MVP 3.09 cm. 3. The cord insertion is difficult to visualize and would suggest the patient return at 24 weeks for repeat views. 4. The rest of the anatomical scan appears normal. 5. biometry is consistent with the dates. Dictated by: Eduar Garcia MD 10/23/2025 16:38 Eduar Garcia MD in OV 10/23/2025 16:38
--- OUTSIDE RECORDS SUMMARY | 2025-10-23 13:08 | XMS_ITS | Encounter Summary ---
Author Organization [employer] ([place], [place], [place], [place], [place]) Address [address] [place] [address] Care Team Providers Care Television Operator Name Role Phone Unavailable Primary Care Provider Unavailabl e Encounter Details Date Type Department Care Team (Late st Contact Info) Description 09/24/2019 Transcribed Document [facility] [place] Family Medicine [address] [place] [address] ProviderLeón MD [address] [place] [address] Social History Tobacco Use Types [...] León Joseph MD - 09/24/2019 8:33 AM HOTEL OR MOTEL CLEANING SUPERVISOR Pain Assessment Entered On: 09/24/2019 9:40 EST [...]
--- OUTSIDE RECORDS SUMMARY | 2025-10-23 13:08 | XMS_ITS | Encounter Summary ---
Author Organization [employer] ([place], [place], [place], [place], [place]) Address [address] [place] [address] Care Team Providers Care Wrapping Machine Helper Name Role Phone Unavailable Primary Care Provider Unavailabl e Encounter Details Date Type Department Care Team (Late st Contact Info) Description 09/24/2019 Transcribed Document [facility] [place] [address] [place] [address] ProviderLeón MD [address] [place] [address] Social History Tobacco Use Types [...] León Joseph MD - 09/24/2019 5:36 AM VOCAL TEACHER ED Assessment Entered On: 09/24/2019 6:25 EST Performed On: 09/24/2019 6:24 EST by RENETTA NIXON RN ED Quick Look Assessment Level of Consciousness : Alert, Awake RENETTA NIXON RN - 09/24/2019 6:24 EST ED General-Functional Assess Information Obtained From : Patient Communication Barrier : None Primary Language : Icelandic Any Spiritual/Cultural Needs or Requests : No [...] RN) EENT Assessment EENT Assessment WDL : [facility] HUSSAINRENETTA RN - 09/24/2019 6:24 EST Cardiovascular ASMT, ED Cardiovascular Assessment WDL : [facility] RENETTA NIXON RN - 09/24/2019 6:24 EST Pulses Grid Radial Pulse, Left : 2+ normal Radial Pulse, Right : 2+ normal RENETTA NIXON RN - 09/24/2019 6:24 EST Respiratory Respiratory Assessment WDL : [facility] RENETTA NIXON RN - 09/24/2019 6:24 EST Breath Sounds Assessment Grid All Lobes Breath Sounds : Clear RENETTA NIXON RN - 09/24/2019 6:24 EST Gastrointestinal ED Gastrointestinal Assessment WDL : [place] with exceptions Gastrointestinal Symptoms : Abdominal pain RENETTA NIXON RN - 09/24/2019 6:24 EST Genitourinary Assessment, ED Genitourinary Assessment WDL : [facility] with exceptions Genitourinary Symptoms : Vaginal bleeding RENETTA NIXON RN - 09/24/2019 6:24 EST Musculoskeletal Musculoskeletal Assessment WDL : [facility] RENETTA NIXON RN - 09/24/2019 6:24 EST Integumentary Assessment Integumentary Assessment WDL : [facility] RENETTA NIXON RN - 09/24/2019 6:24 EST Neurologic ASMT, ED Neurologic Assessment WDL : [facility] RENETTA NIXON RN - 09/24/2019 6:24 EST Electronically signed by Jimena [facility] Conversion Sap Ppm Consultant Cerner at 02/19/2023 9:43 AM CDT documented in this encounter Plan of Treatment Not on file documented as of this encounter Visit Diagnoses Not on filedocumented in this encounter
--- OUTSIDE RECORDS SUMMARY | 2025-10-23 13:08 | XMS_ITS | Encounter Summary ---
Author Organization [employer] ([place], [place], [place], [place], [place]) Address [address] [place] [address] Care Team Providers Care Icing And Glaze Maker Name Role Phone Unavailable Primary Care Provider Unavailabl e Encounter Details Date Type Department Care Team (Late st Contact Info) Description 09/24/2019 Transcribed Document [facility] [place] [address] [place] [address] ProviderLeón MD [address] [place] [address] Social History Tobacco Use Types [...] - Historical ProviderMD - 09/24/2019 5:36 AM SENIOR BUSINESS ANALYST [place] Suicide Severity Rating Scale (C-SSRS) Entered On: 09/24/2019 6:25 EST Performed On: 09/24/2019 6:24 EST by RENETTA NIXON RN [place] Suicide Severity Rating Scale (C-SSRS) CSSRS Past [...]
--- OUTSIDE RECORDS SUMMARY | 2025-10-23 13:08 | XMS_ITS | Patient Health Record ---
Author Organization [facility] Address [address] [place] [address] Phone [phone] Care Team Providers Care Dock Loader Name Role Phone Page Velásquez Unavailable [phone] Migration, Provider Unavailable Unavailable Reason For Referral [...] Active EUTHYROX 75 MCG TABLET *Reorder from [employer] for eRx and Interaction Alerts* Active hydroCHLOROthiazide 12.5 MG Tablet Oral Active BD PANKAJ 2ND GEN PEN NEEDLE 32 GAUGE X / *Reorder from fuseSPORTan for eRx and Interaction Alerts* Active Saxenda 18 MG/3ML Solution Pen-injector Subcutaneous Active Social History Social History Additional Details Category Social Info Options Details Migrated Social History Migrated Social History Tobacco Years: Never smoker 07/12/2021 Problems Problem Type SNOMED Code ICD Code Onset Dates Problem Status W/U Status Risk Notes Problem History of suspected exposure to biological agent (38607510580945 ) Encounter for observation for suspected exposure to other biological agents ruled out (Z03.818) Active confirmed Encounters Encounter Location Date Provider Diagnosis [address] [address] 06/07/2025 Provider Migration [address] [address] 06/08/2025 Provider Migration Plan Of Treatment No Information Insurance Providers Payer Name Payer Address Payer Phone Subscriber Number Group Number Insured Name Patient Relationship to Insured Coverage Start Date Coverage End Date [employer] (Ppo) [address] [place] [address] [id number] JANE ALBARADO Spouse - patient is the spouse of the insured
--- OUTSIDE RECORDS SUMMARY | 2025-10-23 13:08 | XMS_ITS | Clinical Summary ---
Author Organization [facility] Address [address] [place] [address] Care Team Providers Care Social Insurance Adviser Name Role Phone Nadia Goodson MD Primary Care Provider [phone] Allergies Active Allergy Reactions Criticality Noted Date [...] Recorded Patient Health Questionnaire-2 Score 0 04/08/2025 [place] Depression Scale Answer Date Recorded [place] Depression Scale Total 0 02/23/2024 The thought [...] Visit Obstetrics & Gynecology [address] [place] [address] Tres Ybarra MD [address] [place] [address] Health Maintenance Due Date Last Done Comments [facility]-/Child/Adol SDOH Screenings 1993 [facility]- SDOH Screenings 2011 [facility]-Adult SDOH Screenings 2011 [facility]-Hepatitis B Vaccines (1 of 3 - 19+ 3-dose series) 2012 [facility]-Varicella Vaccines (2 of 2 - 13+ 2-dose series) 05/27/2015 04/29/2015 [id number] Vaccine (3 - Moderna risk series) 01/06/2021 [...] Pap, Source Cx/Vagina 02/13/2025 12:50 PM EDT [facility] EER Referred ThinPrep Pap and HPV See Note 02/13/2025 12:50 PM EDT [facility] PAP, THINPREP Normal 02/13/2025 12:50 PM EDT [facility] High Risk HPV Normal 02/13/2025 12:50 PM EDT [facility] Swab Vaginal and cervical cytologic material / Unknown Non-blood Collection / Unknown 02/06/2025 8:23 AM EDT 02/06/2025 12:54 PM EDT Narrative [facility] ([facility] - 02/13/2025 12:50 PM EDT Authorized individuals can access the [employer] Enhanced Report with an [employer] Connect account using the following link. Your local lab can assist you in obtaining the patient report if you don't have a Connect account. [email or web address] Performed By: [facility] [address] [place] [id number] Fitness Manager: Thompson Correa MD, PhD CLIA Number: [id number] SPECIMEN PART A. Cervical, Endocervical, Vaginal, ThinPrep Pap (Seismograph Recorder) CYTOLOGY HX Date of Last Menstrual Period: N FINAL DIAGNOSIS INTERPRETATION: Negative for Intraepithelial Lesion or Malignancy. SPECIMEN ADEQUACY:Satisfactory for evaluation. Endocervical/transformation zone component present. Electronically Signed Out : [email or web address] Performed by: [facility] [address] [place] [address] [place] [id number] Desire Alvarez MD, HR-HPV: Negative Test performed by the FDA-approved [employer] (Gen-Probe) APTIMA HPV test, which detects HPV genotypes: 16, 18, 31, 33, 35, 39, 45, 51, 52, 56, 58, 59, 66, and 68. This assay has been cleared for the specimen types listed below. Other specimen types have not been validated for this assay. -Clinician-collected ThinPrep Pap specimens. Performed by: [facility] [address] [place] [address] [place] [address] Desire Alvarez MD, Tres Ybarra MD LAB REF LAB BLOOD AND FLUID ORD Final Result [facility] [address] [place] [address] * HIV 1 & 2 Antibody/Antigen Screen (05/29/2023 10:20 AM EDT) HIV 1 & 2 Antibody/Antigen Screen Non Reactive Non Reactive 05/29/2023 2:06 PM EDT [facility] Comment:Screening for HIV 1 & 2 antibodies, and P24 antigen is NONREACTIVE. No confirmatory testing is required. Blood Venous blood specimen / Unknown Venipuncture / Unknown 05/29/2023 10:20 AM EDT 05/29/2023 1:01 PM EDT Result Mary Ybarra MD LAB BLOOD ORDERABLES Final Resu lt Performing Organization Address City/[facility]/ZIP Co de Phone Number [facility] [address] [place] [address] * Hepatitis C Antibody (05/29/2023 10:20 AM EDT) Hepatitis C Antibody Negative Negative 05/29/2023 2:02 PM EDT [facility] Blood Venous blood specimen / Unknown Venipuncture / Unknown 05/29/2023 10:20 AM EDT 05/29/2023 1:01 PM EDT Result Mary Ybarra MD LAB BLOOD ORDERABLES Final Resu lt Performing Organization Address City/[facility] Co de Phone Number HEALTHCARE [facility] [address] [place] [address] from Last 3 Months or Most Recently [...] Patient has decision-making capacity? Yes Care Teams Social Insurance Adviser Relationship Specialty Start Date End Date Nadia Goodson MD [address] [place] [address] PCP - General 01/17/23
--- OUTSIDE RECORDS SUMMARY | 2025-10-23 13:09 | XMS_ITS | Encounter Summary ---
Author Organization [employer] ([place], [place], [place], [place], [place]) Address [address] [place] [address] Care Team Providers Care X Ray Physician Name Role Phone Unavailable Primary Care Provider Unavailabl e Encounter Details Date Type Department Care Team (Late st Contact Info) Description 11/25/2020 Transcribed Document [facility] [place] Family Medicine [address] [place] [address] ProviderLeón MD [address] [place] [address] Social History Tobacco Use Types [...] - León ProviderMD - 11/25/2020 10:52 AM TAX INTERN ED Assessment Entered On: 11/25/2020 14:03 EST Performed On: 11/25/2020 14:01 EST by LALI SEAY RN ED Quick Look Assessment Level of Consciousness : Alert, Awake Affect/Behavior : Appropriate, Calm, Cooperative Orientation : Oriented x 4 Skin Temperature : Warm Skin Description : Dry, [place] LALI SEAY RN - 11/25/2020 14:01 EST ED General-Functional Assess Information Obtained From : Patient Preferred Communication Mode : Verbal Communication Barrier : None Primary Language : Uzbek Any Spiritual/Cultural Needs or Requests : No [...] commands Canelo Best Verbal Response : Oriented Wainwright Eye Opening Response : Spontaneous [place] Coma Score : 15 LALI SEAY RN - 11/25/2020 14:01 EST Electronically signed by Jimena [facility] Conversion Game Developer Cerner at 02/19/2023 10:00 AM CDT documented in this encounter Plan of Treatment Not on file documented as of this encounter Visit Diagnoses Not on filedocumented in this encounter
--- OUTSIDE RECORDS SUMMARY | 2025-10-23 13:09 | XMS_ITS | Encounter Summary ---
Author Organization [employer] ([place], [place], [place], [place], [place]) Address [address] [place] [address] Care Team Providers Care Security Sales Consultant Name Role Phone Unavailable Primary Care Provider Unavailabl e Encounter Details Date Type Department Care Team (Late st Contact Info) Description 11/25/[address] [facility] [place] [facility] [place] [address] ProviderLeón MD [address] [place] [address] Social History Tobacco Use Types [...] - Historical ProviderMD - 11/25/2020 3:34 PM DIRECTOR OF MARKET ANALYSIS Electronically signed by Jimena [facility] Conversion Clinical Ob Cerner at 02/19/2023 9:52 AM CDT documented in this encounter Plan of Treatment Not on file documented as of this encounter Visit Diagnoses Not on filedocumented in this encounter
--- OUTSIDE RECORDS SUMMARY | 2025-10-23 13:09 | XMS_ITS | Encounter Summary ---
Author Organization [employer] ([place], [place], [place], [place], [place]) Address [address] [place] [address] Care Team Providers Care Resaw Tailer Name Role Phone Unavailable Primary Care Provider Unavailabl e Encounter Details Date Type Department Care Team (Late st Contact Info) Description 09/24/2019 Transcribed Document [facility] [place] [address] [place] [address] ProviderLeón MD [address] [place] [address] Social History Tobacco Use Types [...] León Joseph MD - 09/24/2019 10:05 AM [place] [address] PAM FENG :1995 Visit Time:09/24/2019 Your Visit [...] fever and or persistent vomiting. Where: [address] [facility] [address] [place] [address]- Business (1) Allergies amoxicillin (C/O - vomiting) [...] range between ( 1.0 and 7.0 ) [place] #: 0.60 K/uL -- Normal range between ( 0.24 and 0.82 ) Eos #: 0.32 K/uL -- Normal range between ( 0.04 and 0.54 ) [place] %: 7.9 % -- Normal range between [...] ) Urine Bilirubin Dipstick: Negative Urine Specific [place]: 1.007 -- Normal range between ( 1.005 [...] 10/23/2006 Document Revised: 11/24/2017 Document Reviewed: 11/24/2017 [employer] Interactive Patient Education ?? 2019 123ContactForm. Emergency Awareness and Preventative Care STROKE is [...] Assistance with quitting is available by contacting 0-046-PIVS-NOW. This is a free resource providing counseling, [...] was given the opportunity to ask questions. Patient/Tableau Architect Name: Patient/Tableau Architect Signature: Relationship to Patient: Clinician/Hospital Tableau Architect Signature: Please Provide a Telephone Number Where You Can Be Reached: Is it Permissible To Leave a Message? Date: Electronically signed by Jimena, [facility] Conversion Ekg/Ecg Technician Kimberly at 02/19/2023 9:54 AM CDT documented in this encounter Plan of Treatment Not on file documented as of this encounter Visit Diagnoses Not on filedocumented in this encounter
--- OUTSIDE RECORDS SUMMARY | 2025-10-23 13:09 | XMS_ITS | Encounter Summary ---
Author Organization [employer] ([place], [place], [place], [place], [place]) Address [address] [place] [address] Care Team Providers Care Waste Oil Pumper Name Role Phone Unavailable Primary Care Provider Unavailabl e Encounter Details Date Type Department Care Team (Late st Contact Info) Description 09/24/2019 Transcribed Document [facility] [place] [address] [place] [address] ProviderLeón MD [address] [place] [address] Social History Tobacco Use Types [...] - Historical ProviderMD - 09/24/2019 6:15 AM SEED YEAST OPERATOR Patient: PAM FENG Age: 24 years [...] than usual; +abdominal cramping. 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 History of Present Illness 24-year-old female [...] fertility medication last Monday. Patient sees supervisor lime Chandan Lucas. Patient is with history of spontaneous 4 months ago. Admits to history of ovarian cyst removal 2014. Admits to hx of poal. Patient states she 102 fever at 4 [...] EST Height Source Stated Height Entry Format [place] Height/Length, YAKUT (ft) 5 ft Height/Length YAKUT 5 Inch CLINICALHEIGHT 165.1 cm [place] Body Weight 56.59 kg Weight Source, ED Standing scale Weight Entry Format [place] Weight Nigerian lb 220 lb CLINICALWEIGHT 100 kg Body [...] Triage: ED C-SSRS: ED Clinical Reconciliation: ED company accountant: HCG Urine Qualitative: LENNY Prep: NaCl 0.9% [...] Color Red Urine Appearance Cloudy Urine Specific [place] 1.007 Urine pH Dipstick 5.5 LOW Urine [...] % 27.7 % Lymph # 2.10 K/uL Darke % 7.9 % Darke # 0.60 K/uL Eos % 4.2 % Eos # 0.32 K/uL Baso % 0.4 % Baso # 0.03 K/uL Slide Review No IG# 0 x10(3)/uL IG% 0 % PT 9.6 Second(s) INR 0.9 PTT 25.4 Second(s) Wet Prep See Result LENNY Prep See Result Specimen Type swab . Radiology results: Radiology Results (Last 48 hours) [id number] -- 09/24/2019 05:36 US Transvaginal Non Ob [...] yesterday. Rosenda Meyer MD Electronically signed by [facility] Conversion Medical Staff Coordinator Cerner at 02/19/2023 9:58 AM CDT documented in this encounter Plan of Treatment Not on file documented as of this encounter Visit Diagnoses Not on filedocumented in this encounter
--- OUTSIDE RECORDS SUMMARY | 2025-10-23 13:09 | XMS_ITS | Encounter Summary ---
Author Organization [facility] Address [address] [place] [address] Care Team Providers Care Mortician Supplies Sales Representative Name Role Phone Pcp, No Primary Care Provider Nadia Todd MD Primary Care Provider [phone] Pcp, No Primary Care Provider Nadia Todd MD Primary Care Provider [phone] Encounter Details Date Type Department Care Team (Late st Contact Info) Description 10/31/2019 [facility] Encounter Historical OTTR [address] [place] [address] Provider, [address] [address] Social History Tobacco Use Types [...] 10:47 AM EST Emailed pt. LDKT questionnaire. Electronically signed by Interface, Private Branch Exchange Service Advisor Conversion at 02/25/2021 4:23 PM EDT documented in this encounter Plan of Treatment Upcoming Encounters Date Type Department Care Team (Late st Contact Info) Description 02/09/2026 8:45 AM EDT Office Visit Obstetrics & Gynecology [address] [place] [address] Tres Ybarra MD [address] [place] [address] documented as of this encounter Visit Diagnoses Not on filedocumented in this encounter Care Teams Mortician Supplies Sales Representative Relationship Specialty Start Date End Date Pcp, No [address] [place] [address] PCP - General 08/07/21 08/08/21 Nadia Goodson MD [address] [place] [address] PCP - General 08/09/21 08/09/21 Pcp, No [address] [place] [address] PCP - General Family Medicine 07/08/22 01/16/23 Nadia Goodson MD [address] [place] [address] PCP - General 01/17/23 documented as of this encounter
--- OUTSIDE RECORDS SUMMARY | 2025-10-23 13:09 | XMS_ITS | Encounter Summary ---
Author Organization [employer] ([place], [place], [place], [place], [place]) Address [address] [place] [address] Care Team Providers Care Mass Spectrometry Manager Name Role Phone Unavailable Primary Care Provider Unavailabl e Encounter Details Date Type Department Care Team (Late st Contact Info) Description 09/24/2019 Transcribed Document [facility] [place] [facility] [place] [address] ProviderLeón MD [address] [place] [address] Social History Tobacco Use Types [...] - León ProviderMD - 09/24/2019 9:17 AM TALENT MANAGEMENT MANAGER Electronically signed by Jimena [facility] Conversion Gas Examiner Cerner at 02/19/2023 9:55 AM CDT documented in this encounter Plan of Treatment Not on file documented as of this encounter Visit Diagnoses Not on filedocumented in this encounter
--- OUTSIDE RECORDS SUMMARY | 2025-10-23 13:09 | XMS_ITS | Clinical Summary ---
Author Organization [employer] ([place], [place], [place], [place], [place]) Address [address] [place] [address] Care Team Providers Care Clinic Office Coordinator Name Role Phone Unavailable Primary Care [...]
--- OUTSIDE RECORDS SUMMARY | 2025-10-23 13:09 | XMS_ITS | Encounter Summary ---
Author Organization [employer] ([place], [place], [place], [place], [place]) Address [address] [place] [address] Care Team Providers Care Four Corner Stayer Machine Operator Name Role Phone Unavailable Primary Care Provider Unavailabl e Encounter Details Date Type Department Care Team (Late st Contact Info) Description 11/25/2020 Transcribed Document [facility] Family Medicine [address] [place] [address] ProviderLeón MD [address] [place] [address] Social History Tobacco Use Types [...] - Historical ProviderMD - 11/25/2020 11:11 AM WARM IN WORKER ED POC - URINE HCG Entered On: 11/25/2020 14:40 EST Performed On: 11/25/2020 14:20 EST by LALI SEAY RN Point of Care Urine HCG HCG Result : Negative Internal Control Line Present : Yes Internal Control Background Clear : Yes LALI SEAY RN - 11/25/2020 14:39 EST Electronically signed by Jimena [facility] Conversion Mineral Ore Processing Labourer Cerner at 02/19/2023 9:37 AM CDT documented in this encounter Plan of Treatment Not on file documented as of this encounter Visit Diagnoses Not on filedocumented in this encounter
--- OUTSIDE RECORDS SUMMARY | 2025-10-23 13:09 | XMS_ITS | Encounter Summary ---
Author Organization [employer] ([place], [place], [place], [place], [place]) Address [address] [place] [address] Care Team Providers Care Development Vice President Name Role Phone Unavailable Primary Care Provider Unavailabl e Encounter Details Date Type Department Care Team (Late st Contact Info) Description 11/25/2020 Transcribed Document [facility] Radiology [address] [place] [address] Virgie Armendariz MD [facility] Dept of Emergency Medicine [place], [place] [id number] Social History Tobacco Use Types Packs/Day Years [...] at maximum was 10 /10. , just FIELD MAP TECHNICIAN . The degree at present is moderate, [...] EST Height Source Stated Height Entry Format [place] Height/Length, CZECH (ft) 5 ft Height/Length CZECH 5 Inch CLINICALHEIGHT 165.1 cm [place] Body Weight 56.59 kg Weight Source, ED Critical estimated dosing weight Weight Entry Format [place] Weight [place] lb 220 lb CLINICALWEIGHT 100 kg Body [...] % 26.1 % Lymph # 2.37 x10(3)/uL [place] % 6.1 % [place] # 0.55 K/uL Eos % 1.3 % Eos # 0.12 x10(3)/uL Baso % 0.3 % Baso # 0.03 x10(3)/uL Slide Review No IG# 0.03 x10(3)/uL IG% 0.30 % . Radiology results: Radiology Results (Last 48 hours) [id number] -- 11/25/2020 10:52 CT Head WO (11/25/2020 [...] instructions. Notes: I certify that the Physician Paper Machine Tender performed the services as delegated. I agree with the assessment, treatment plan and disposition of the patient as recorded by the Physician Paper Machine Tender. This document was created with [employer]itt[employer] dictation software and unidentified oil well driller errors may be present.. . documented in this encounter Plan of Treatment Not on file documented as of this encounter Visit Diagnoses Not on filedocumented in this encounter
--- OUTSIDE RECORDS SUMMARY | 2025-10-23 13:09 | XMS_ITS | Patient Health Record ---
Author Organization [facility] [place] Address [address] [facility] [address] [place] [address] Care Team Providers Care Stream Control Officer Name Role Phone Maggie Tenorio [phone] Allergies Allergen (clinical drug ingredient) Drug/Non Drug [...] Notes Problem Noninflammatory disorder of the vagina (59235591) Bloody vaginal discharge (N89.8) 02/03/20 21 Active [...]
--- OUTSIDE RECORDS SUMMARY | 2025-10-23 13:09 | XMS_ITS | Encounter Summary ---
Author Organization [employer] ([place], [place], [place], [place], [place]) Address [address] [place] [address] Care Team Providers Care Community Recreation Programmer Name Role Phone Unavailable Primary Care Provider Unavailabl e Encounter Details Date Type Department Care Team (Late st Contact Info) Description 09/24/2019 Transcribed Document [facility] [place] Medicine [facility] [place] [address] ProviderLeón MD [facility] [place] [address] Social History Tobacco Use Types [...] - León ProviderMD - 09/24/2019 5:36 AM DOCUMENT RESTORER ED Triage Entered On: 09/24/2019 5:47 EST Performed On: 09/24/2019 5:42 EST by MINDI WONG CABINETMAKER APPRENTICE Triage Across the Room Triage Date/Time : 09/24/2019 5:42 EST Chief Complaint : Pt c/o fever and vaginal bleeding x2 days. Pt stated she is on her period but the bleeding is more than usual; +abdominal cramping. No med taken COMMERCIAL LEASING AGENT MINDI WONG RN - 09/24/2019 5:42 EST [...] 09/24/2019 05:47:35 EST) Problems(Active) Asthma (SNOMED CT :845924334 ) Name of Problem: Asthma ; Recorder: RAJNI RAMIREZ RN; Confirmation: Confirmed ; Classification: Medical ; Code: [id number] ; Contributor System: PowerChart ; Last Updated: 09/01/2018 18:05 EDT ; Life Cycle Date: 09/01/2018 ; Life Cycle Status: Active ; Vocabulary: SNOMED CT Hypothyroid (SNOMED CT :37317876 ) Name of Problem: Hypothyroid ; Recorder: RAJNI RAMIREZ RN; Confirmation: Confirmed ; Classification: Medical ; Code: 53529956 ; Contributor System: PowerChart ; Last Updated: 09/01/2018 18:05 EDT ; Life Cycle Date: 09/01/2018 ; Life Cycle Status: Active ; Vocabulary: SNOMED CT PCOS (polycystic ovarian syndrome) (SNOMED CT :888623935 ) Name of Problem: PCOS (polycystic ovarian syndrome) ; Recorder: RAJNI RAMIREZ RN; Confirmation: Confirmed ; Classification: Medical ; Code: 774660860 ; Contributor System: Amazing Photo Letters ; Last Updated: 09/01/2018 18:05 EDT ; Life Cycle Date: 09/01/2018 ; Life Cycle Status: Active ; Vocabulary: SNOMED CT Diagnoses(Active) Abdominal pain Date: 09/24/2019 ; Diagnosis Type: Reason For Visit ; Confirmation: Complaint of ; Clinical Dx: Abdominal pain ; Classification: Medical ; Clinical Service: Emergency medicine ; Code: PNED ; Probability: 0 ; Diagnosis Code: [id number] Fever Date: 09/24/2019 ; Diagnosis Type: Reason For Visit ; Confirmation: Complaint of ; Clinical Dx: Fever ; Classification: Medical ; Clinical Service: Emergency medicine ; Code: PNED ; Probability: 0 ; Diagnosis Code: [id number] Vaginal bleeding Date: 09/24/2019 ; Diagnosis Type: Reason For Visit ; Confirmation: Complaint of ; Clinical Dx: Vaginal bleeding ; Classification: Medical ; Clinical Service: Emergency medicine ; Code: PNED ; Probability: 0 ; Diagnosis Code: [id number] ED Height and Weight Height Source : Stated Height Entry Format : [place] Height, Feet : 5 ft(Converted to: 152 cm, 60 Inch) Height, Inches : 5 Inch(Converted to: 0 ft 5 Inch, 12.70 cm) Clinical Height : 165.1 cm Weight Source, ED : Standing scale Weight Entry Format : [place] Weight, Pounds : 220 lb Clinical Dosing Weight : 100 kg Body Surface Area (BSA) : 2.06 m2 Body Mass Index : 36.7 kg/m2 (HI) [place] Body Weight (IBW) : 56.59 kg MINDI WONG RN - 09/24/2019 5:42 EST Pain Assessment Pain Assessment : Initial assessment Pain Scale Used : 0-10 Scale MINDI WNOG RN - 09/24/2019 5:42 EST Pain Scale [...] - 09/24/2019 5:42 EST Electronically signed by [facility] Conversion Oyster Culturist Cerner at 02/19/2023 9:39 AM CDT documented in this encounter Plan of Treatment Not on file documented as of this encounter Visit Diagnoses Not on filedocumented in this encounter
--- OUTSIDE RECORDS SUMMARY | 2025-10-23 13:09 | XMS_ITS | Encounter Summary ---
Author Organization [employer] ([place], [place], [place], [place], [place]) Address [address] [place] [address] Care Team Providers Care Certified Midwife Name Role Phone Unavailable Primary Care Provider Unavailabl e Encounter Details Date Type Department Care Team (Late st Contact Info) Description 09/26/2019 Transcribed Document [facility] [place] [address] [place] [address] ProviderLeón MD [address] [place] [address] Social History Tobacco Use Types [...] - Historical ProviderMD - 09/26/2019 11:00 AM DESIGN RELEASE ENGINEER Urine Culture Collected: 09/24/2019 Complete Body site: Specimen Type: U CleanCatch 09/26/2019 09:56 09/26/2019 11:00 (KINGSLEY MEJIA PA-C) Reviewed by Provider, No further action required 3 or more organisms suggesting contamination Electronically signed by Errol Hess Conversion Community Health Education Coordinator Jillner at 02/19/2023 9:47 AM CDT documented in this encounter Plan of Treatment Not on file documented as of this encounter Visit Diagnoses Not on filedocumented in this encounter
--- OUTSIDE RECORDS SUMMARY | 2025-10-23 13:09 | XMS_ITS | Encounter Summary ---
Author Organization [facility] Address [address] [id number] Care Team Providers Care Senior Account Clerk Name Role Phone Pcp, No Primary Care Provider Nadia Todd MD Primary Care Provider [phone] Pcp, No Primary Care Provider Nadia Todd MD Primary Care Provider [phone] Encounter Details Date Type Department Care Team (Late st Contact Info) Description 11/05/2019 [facility] Committee Historical OTTR [address] [place] [address] Marla Sin, [facility] [address] [place] [address] Social History Tobacco Use Types Packs/Day Years [...] EDT Office Visit Obstetrics & Gynecology [address] [place] [address] Tres Ybarra MD [address] [place] [address] documented as of this encounter Visit Diagnoses Not on filedocumented in this encounter Care Teams Senior Account Clerk Relationship Specialty Start Date End Date Pcp, No [address] [place] [address] PCP - General 08/07/21 08/08/21 Nadia Goodson MD [address] [place], [place] [id number] PCP - General 08/09/21 08/09/21 Pcp, No [address] [place] [address] PCP - General Family Medicine 07/08/22 01/16/23 Nadia Goodson MD [address] [place] [address] PCP - General 01/17/23 documented as of this encounter
--- OUTSIDE RECORDS SUMMARY | 2025-10-23 13:09 | XMS_ITS | Encounter Summary ---
Author Organization [employer] ([place], [place], [place], [place], [place]) Address [address] [place] [address] Care Team Providers Care Metallurgy Laboratory Technician Name Role Phone Unavailable Primary Care Provider Unavailabl e Encounter Details Date Type Department Care Team (Late st Contact Info) Description 11/25/2020 Transcribed Document [facility] [place] [address] [place] [address] ProviderLeón MD [address] [place] [address] Social History Tobacco Use Types [...] - León ProviderMD - 11/25/2020 10:52 AM SFDC TECHNICAL ARCHITECT ED Triage Entered On: 11/25/2020 11:06 EST [...] 11/25/2020 11:06:17 EST) Problems(Active) Asthma (SNOMED CT :308302505 ) Name of Problem: Asthma ; Recorder: RAJNI RAMIREZ RN; Confirmation: Confirmed ; Classification: Medical ; Code: 779823110 ; Contributor System: PowerChart ; Last Updated: 09/01/2018 18:05 EDT ; Life Cycle Date: 09/01/2018 ; Life Cycle Status: Active ; Vocabulary: SNOMED CT Hypothyroid (SNOMED CT :71135828 ) Name of Problem: Hypothyroid ; Recorder: RAJNI RAMIREZ RN; Confirmation: Confirmed ; Classification: Medical ; Code: 66630051 ; Contributor System: PowerChart ; Last Updated: 09/01/2018 18:05 EDT ; Life Cycle Date: 09/01/2018 ; Life Cycle Status: Active ; Vocabulary: SNOMED CT PCOS (polycystic ovarian syndrome) (SNOMED CT :023569969 ) Name of Problem: PCOS (polycystic ovarian syndrome) ; Recorder: RAJNI RAMIREZ RN; Confirmation: Confirmed ; Classification: Medical ; Code: 948915289 ; Contributor System: [email or web address] ; Last Updated: 09/01/2018 18:05 EDT ; Life Cycle Date: 09/01/2018 ; Life Cycle Status: Active ; Vocabulary: SNOMED CT Diagnoses(Active) Headache Date: 11/25/2020 ; Diagnosis Type: Reason For Visit ; Confirmation: Complaint of ; Clinical Dx: Headache ; Classification: Medical ; Clinical Service: Emergency medicine ; Code: PNED ; Probability: 0 ; Diagnosis Code: [id number] ED Height and Weight Height Source : Stated Height Entry Format : [place] Height, Feet : 5 ft(Converted to: 152 cm, 60 Inch) Height, Inches : 5 Inch(Converted to: 0 ft 5 Inch, 12.70 cm) Clinical Height : 165.1 cm Weight Source, ED : Critical estimated dosing weight Weight Entry Format : [place] Weight, Pounds : 220 lb Clinical Dosing Weight : 100 kg Body Surface Area (BSA) : 2.06 m2 Body Mass Index : 36.7 kg/m2 (HI) [place] Body Weight (IBW) : 56.59 kg ALBERTO [...]
--- OUTSIDE RECORDS SUMMARY | 2025-10-23 13:09 | XMS_ITS | Referral Summary ---
Author Organization [employer] ([place], [place], [place], [place], [place]) Address [address] [place] [address] Care Team Providers Care School Crossing Guard Supervisor Name Role Phone Unavailable Primary Care [...]
--- OUTSIDE RECORDS SUMMARY | 2025-10-23 13:09 | XMS_ITS | Encounter Summary ---
Author Organization [employer] ([place], [place], [place], [place], [place]) Address [address] [place] [address] Care Team Providers Care Senior Telecommunications Engineer Name Role Phone Unavailable Primary Care Provider Unavailabl e Encounter Details Date Type Department Care Team (Late st Contact Info) Description 09/24/2019 Transcribed Document [facility] [place] Family Medicine [address] [place] [address] ProviderLeón MD [address] [place] [address] Social History Tobacco Use Types [...] - Historical ProviderMD - 09/24/2019 7:56 AM COMPUTER SYSTEMS INTEGRATOR Vital Signs ED Entered On: 09/24/2019 8:38 [...]
--- OUTSIDE RECORDS SUMMARY | 2025-10-23 13:10 | XMS_ITS | Encounter Summary ---
Author Organization [employer] ([place], [place], [place], [place], [place]) Address [address] [place] [address] Care Team Providers Care Oceanographer Assistant Name Role Phone Unavailable Primary Care Provider Unavailabl e Encounter Details Date Type Department Care Team (Late st Contact Info) Description 11/25/2020 Transcribed Document [facility] [place] Family Medicine [address] [place] [address] ProviderLeón MD [address] [place] [address] Social History Tobacco Use Types [...] León Joseph MD - 11/25/2020 4:12 PM TESTBOARD OPERATOR [facility] [place] [address] PAM FENG :1995 Visit Time:11/25/2020 Your [...] range between ( 0.0 and 7.0 ) [place] #: 0.55 K/uL -- Normal range between ( 0.16 and 1.00 ) [place] #: 0.12 x10(3)/uL -- Normal range between ( 0.00 and 0.80 ) [place] %: 6.1 % -- Normal range between [...] instructions at home: Managing pain ??? Take lvkb-fsc-mkfoudp and prescription medicines only as told by [...] Reviewed: 02/02/2018 Elsevier Patient Education ?? 2020 AudioTag. Emergency Awareness and Preventative Care STROKE is [...] Assistance with quitting is available by contacting 6-939-ETLB-NOW. This is a free resource providing counseling, [...] was given the opportunity to ask questions. Patient/Sap Portal Architect Name: Patient/Sap Portal Architect Signature: Relationship to Patient: Clinician/Hospital Sap Portal Architect Signature: Please Provide a Telephone Number Where You Can Be Reached: Is it Permissible To Leave a Message? Date: documented in this encounter Plan of Treatment Not on file documented as of this encounter Visit Diagnoses Not on filedocumented in this encounter
--- OUTSIDE RECORDS SUMMARY | 2025-10-23 13:10 | XMS_ITS | Encounter Summary ---
Author Organization [employer] ([place], [place], [place], [place], [place]) Address [address] [place] [address] Care Team Providers Care Mail Examiner Name Role Phone Unavailable Primary Care Provider Unavailabl e Encounter Details Date Type Department Care Team (Late st Contact Info) Description 11/25/2020 Transcribed Document [facility] [place] Family Medicine [address] [place] [address] ProviderLeón MD [address] [place] [address] Social History Tobacco Use Types [...] - Historical ProviderMD - 11/25/2020 10:52 AM PRETZEL PACKER [place] Suicide Severity Rating Scale (C-SSRS) Entered On: 11/25/2020 14:40 EST Performed On: 11/25/2020 14:40 EST by LALI SEAY RN [place] Suicide Severity Rating Scale (C-SSRS) CSSRS Past [...]
--- OUTSIDE RECORDS SUMMARY | 2025-10-23 13:12 | XMS_ITS | Encounter Summary ---
Author Organization [employer] ([place], [place], [place], [place], [place]) Address [address] [place] [address] Care Team Providers Care Network Systems Analyst Name Role Phone Unavailable Primary Care Provider Unavailabl e Encounter Details Date Type Department Care Team (Late st Contact Info) Description 11/25/2020 Transcribed Document [facility] [place] [address] [place] [address] ProviderLeón MD [address] [place] [address] Social History Tobacco Use [...] - León ProviderMD - 11/25/2020 4:27 PM ELECTRICAL MAINTENANCE ENGINEER ED Discharge Entered On: 11/25/2020 16:27 EST [...] 11/25/2020 16:27 EST Electronically signed by Jimena [facility] Conversion Sap Ppm Consultant Cerner at 02/19/2023 9:39 AM CDT documented in this encounter Plan of Treatment Not on file documented as of this encounter Visit Diagnoses Not on filedocumented in this encounter
--- OUTSIDE RECORDS SUMMARY | 2025-10-23 13:12 | XMS_ITS | Clinical Summary ---
Author Organization [facility] Address [address] [place] [address] Care Team Providers Care Stunt Double Name Role Phone Nadia Drummond MD Primary Care Provider [phone] Allergies Active Allergy Reactions Criticality Noted Date [...] Description 07/28/2025 11:15 AM EDT Office Visit [facility] END[facility] [address] [place] [address] Cheri Harden DO Acquired hypothyroidism (Primary Dx); Solitary thyroid nodule 07/28/2025 Travel 07/24/2025 Telephone [facility] [address] [place] [address] Cheri Harden DO from Last 3 Months [...] Caitlin Obesity Mother Caitlin Obesity Paternal Grandmother [place] Relation Name Status Comments Brother Alive Father Anam Alive Maternal Grandfather Aren Maternal Grandmother Yvette Mother Caitlin Alive Paternal Grandfather Paternal Grandmother [place] Social History Tobacco Use Types Packs/Day Years [...] Description 11/03/2025 10:30 AM EST Office Visit [facility] [address] [place] [address] Cheri Harden, [address] [place] [address] Health Maintenance Due Date Last Done Comments [...] PM EDT Performed at: - [facility] [address] [place] [id number] Equipment Technician: Guillermo Choi PhD, Phone: [phone] Patient Fasting: N Charla Vegas PA-C LAB BLOOD ORDERABLES Final Result [facility] ([facility]) [address] [place] [address], [facility] [address] [place] [address], from Last 3 Months or Most Recently Relevant to Health Maintenance Insurance [facility] [place] [address] [facility] PPO Care Teams Stunt Double Relationship Specialty Start Date End Date Nadia Drummond MD PCP - General Family Medicine 07/15/20
== END 2025-10-23 23:59 | disposition home or self-care (01) ==
LOC: RAD 12:54
PROVIDERS: PCP Family Medicine; Visit Provider Obstetrics & Gynecology
DX: O99.012 Anemia complicating pregnancy, second trimester (principal); D64.9 Anemia, unspecified; O26.22 Pregnancy care for patient with recurrent pregnancy loss, second trimester; Z90.3 Acquired absence of stomach [part of]
CPT/HCPCS: 76811

== ENCOUNTER 2025-10-24 18:02 | Outpatient (CLI) | payer BC, SELFPAY ==
--- OUTSIDE RECORDS SUMMARY | 2021-05-03 11:23 | XMS_ITS | Encounter Summary ---
[facility] [address] [place] [address] Care Team Providers Care Clinical Research Nurse Coordinator Name Role Phone Nadia Drummond MD Primary Care Provider [phone] Reason for Visit * Diagnostic Imaging (Routine) - Closed Specialty Diagnoses / Procedures Referred By Contac t Referred To Contact Radiology Diagnoses Hypothyroidism, unspecified type Procedures US Thyroid Cheri Hadren DO [address] [place] [address] Phone: tel: fax: [facility] [address] [place] [address] Phone: tel: fax: Referral ID Status Reason Start Date Expiration Date Visits Re quested Visits Authorized [id number] Closed 05/03/2021 05/03/2022 1 1 Encounter Details Date Type Department Care Team (Late st Contact Info) Description 05/03/2021 12:23 PM EDT Hospital Encounter [facility] [address] [place] [address] Social History Tobacco Use Types [...] Description 11/03/2025 10:30 AM EST Office Visit [facility] [address] [facility] [address] [place] [address] Cheri Harden, [address] [facility] [address] [place] [address] documented as of this encounter Procedures Procedure [...] documented as of this encounter Care Teams Clinical Research Nurse Coordinator Relationship Specialty Start Date End Date Nadia Drummond MD PCP - General Family Medicine 07/15/20 documented as of this encounter
--- OUTSIDE RECORDS SUMMARY | 2022-10-13 09:42 | XMS_ITS | Encounter Summary ---
[facility] Address [address] [place] [address] Care Team Providers Care Motion Picture Equipment Machinist Name Role Phone Nadia Drummond MD Primary Care Provider Reason for Visit * Diagnostic Imaging (Routine) - Closed Specialty Diagnoses / Procedures Referred By Idalia caruso Referred To Contact Radiology Diagnoses Solitary thyroid nodule Procedures US Thyroid Cheri Harden DO 3084 [facility] [address] [address] [place] [address] Phone: tel: fax: Referral ID Status Reason Start Date Expiration Date Visits Re quested Visits Authorized [id number] Closed 10/13/2022 10/13/2023 1 1 Encounter Details Date Type Department Care Team (Late st Contact Info) Description 10/13/2022 9:42 AM EST Hospital Encounter [facility] 3084 [facility] [address] [place] [phone] Social History Tobacco Use Types Packs/Day [...] Visit [facility] END[facility]CR[facility]Y 3084 [facility] [address] [place] [address] Cheri Harden, DO [address] [address] documented as of this encounter Procedures Procedure [...] of this encounter Care Teams Motion Picture Equipment Machinist Relationship Specialty Start Date End Date Nadia Drummond MD PCP - General Family Medicine 07/15/20 documented as of this encounter
[2025-10-24 18:06] VITALS: BMI 26.8
--- OUTSIDE RECORDS SUMMARY | 2025-10-24 18:06 | XMS_ITS | Encounter Summary ---
Author Organization [employer] ([place], [place], [place], [place], [place]) Address [address] [place] [address] Care Team Providers Care Fashion Artist Name Role Phone Unavailable Primary Care Provider Unavailabl e Encounter Details Date Type Department Care Team (Late st Contact Info) Description 11/25/2020 Transcribed Document [facility] [place] Family Medicine [address] [place] [address] ProviderLeón MD [address] [place] [address] Social History Tobacco Use Types [...] - León ProviderMD - 11/25/2020 10:52 AM TITLE I DIRECTOR ED Triage Entered On: 11/25/2020 11:06 EST [...] 11/25/2020 11:06:17 EST) Problems(Active) Asthma (SNOMED CT :782788493 ) Name of Problem: Asthma ; Recorder: RAJNI RAMIREZ RN; Confirmation: Confirmed ; Classification: Medical ; Code: 377113269 ; Contributor System: PowerChart ; Last Updated: 09/01/2018 18:05 EDT ; Life Cycle Date: 09/01/2018 ; Life Cycle Status: Active ; Vocabulary: SNOMED CT Hypothyroid (SNOMED CT :94258655 ) Name of Problem: Hypothyroid ; Recorder: RAJNI RAMIREZ RN; Confirmation: Confirmed ; Classification: Medical ; Code: 83571394 ; Contributor System: PowerChart ; Last Updated: 09/01/2018 18:05 EDT ; Life Cycle Date: 09/01/2018 ; Life Cycle Status: Active ; Vocabulary: SNOMED CT PCOS (polycystic ovarian syndrome) (SNOMED CT :266497455 ) Name of Problem: PCOS (polycystic ovarian syndrome) ; Recorder: RAJNI RAMIREZ RN; Confirmation: Confirmed ; Classification: Medical ; Code: 898787381 ; Contributor System: [employer] ; Last Updated: 09/01/2018 18:05 EDT ; Life Cycle Date: 09/01/2018 ; Life Cycle Status: Active ; Vocabulary: SNOMED CT Diagnoses(Active) Headache Date: 11/25/2020 ; Diagnosis Type: Reason For Visit ; Confirmation: Complaint of ; Clinical Dx: Headache ; Classification: Medical ; Clinical Service: Emergency medicine ; Code: PNED ; Probability: 0 ; Diagnosis Code: [id number] ED Height and Weight Height Source : Stated Height Entry Format : [place] Height, Feet : 5 ft(Converted to: 152 cm, 60 Inch) Height, Inches : 5 Inch(Converted to: 0 ft 5 Inch, 12.70 cm) Clinical Height : 165.1 cm Weight Source, ED : Critical estimated dosing weight Weight Entry Format : [place] Weight, Pounds : 220 lb Clinical Dosing Weight : 100 kg Body Surface Area (BSA) : 2.06 m2 Body Mass Index : 36.7 kg/m2 (HI) [place] Body Weight (IBW) : 56.59 kg ALBERTO [...]
--- OUTSIDE RECORDS SUMMARY | 2025-10-24 18:06 | XMS_ITS | Encounter Summary ---
Author Organization [employer] ([place], [place], [place], [place], [place]) Address [address] [place] [address] Care Team Providers Care Rotor Winder Name Role Phone Unavailable Primary Care Provider Unavailabl e Encounter Details Date Type Department Care Team (Late st Contact Info) Description 09/24/[address] [facility] [place] Family Medicine [facility] [place] [address] ProviderLeón MD [address] [place] [address] Social History Tobacco Use Types [...] - León ProviderMD - 09/24/2019 9:17 AM HOSPICE CARE SALES CONSULTANT Electronically signed by Jimena [facility] Conversion Slab Installer Cerner at 02/19/2023 9:55 AM CDT documented in this encounter Plan of Treatment Not on file documented as of this encounter Visit Diagnoses Not on filedocumented in this encounter
--- OUTSIDE RECORDS SUMMARY | 2025-10-24 18:06 | XMS_ITS | Encounter Summary ---
Author Organization [facility] Address [address] [place] [address] Care Team Providers Care Clinical Services Assistant Name Role Phone Pcp, No Primary Care Provider Nadia Todd MD Primary Care Provider [phone] Pcp, No Primary Care Provider Nadia Todd MD Primary Care Provider [phone] Encounter Details Date Type Department Care Team (Late st Contact Info) Description 10/31/2019 [facility] Encounter Historical OTTR [address] [place] [address] Provider, [address] [address] Social History Tobacco Use Types [...] EDT Office Visit Obstetrics & Gynecology [address] [place] [address] Tres Ybarra MD [address] [place] [address] documented as of this encounter Visit Diagnoses Not on filedocumented in this encounter Care Teams Clinical Services Assistant Relationship Specialty Start Date End Date Pcp, No [address] [place] [address] PCP - General 08/07/21 08/08/21 Nadia Goodson MD [address] [place] [address] PCP - General 08/09/21 08/09/21 Pcp, No [address] [place] [address] PCP - General Family Medicine 07/08/22 01/16/23 Nadia Goodson MD [address] [place] [address] PCP - General 01/17/23 documented as of this encounter
--- OUTSIDE RECORDS SUMMARY | 2025-10-24 18:06 | XMS_ITS | Encounter Summary ---
Author Organization [facility] Address [address] [place] [id number] Care Team Providers Care Tax Adjuster Name Role Phone Pcp, No Primary Care Provider Nadia Todd MD Primary Care Provider [phone] Pcp, No Primary Care Provider Nadia Todd MD Primary Care Provider [phone] Encounter Details Date Type Department Care Team (Late st Contact Info) Description 11/05/2019 [facility] Committee Historical OTTR [address] [place] [address] Marla Sin, [facility] [address] [place] [address] Social History Tobacco Use Types Packs/Day Years [...] EDT Office Visit Obstetrics & Gynecology [address] [place] [address] Tres Ybarra MD [address] [place] [address] documented as of this encounter Visit Diagnoses Not on filedocumented in this encounter Care Teams Tax Adjuster Relationship Specialty Start Date End Date Pcp, No [address] [place] [address] PCP - General 08/07/21 08/08/21 Nadia Goodson MD [address] [place], [place] [id number] PCP - General 08/09/21 08/09/21 Pcp, No [address] [place] [address] PCP - General Family Medicine 07/08/22 01/16/23 Nadia Goodson MD [address] [place] [address] PCP - General 01/17/23 documented as of this encounter
--- OUTSIDE RECORDS SUMMARY | 2025-10-24 18:06 | XMS_ITS | Encounter Summary ---
Author Organization [employer] ([place], [place], [place], [place], [place]) Address [address] [place] [address] Care Team Providers Care Civil Engineering Intern Name Role Phone Unavailable Primary Care Provider Unavailabl e Encounter Details Date Type Department Care Team (Late st Contact Info) Description 09/24/2019 Transcribed Document [facility] [place] [address] [place] [address] ProviderLeón MD [address] [place] [address] Social History Tobacco Use Types [...] León Joseph MD - 09/24/2019 10:05 [place] [address] PAM FENG :1995 Visit Time:09/24/2019 Your Visit [...] [address] [facility] [address] [place] [address]- Business (1) Allergies amoxicillin (C/O - vomiting) [...] range between ( 1.0 and 7.0 ) [place] #: 0.60 K/uL -- Normal range between ( 0.24 and 0.82 ) [place] #: 0.32 K/uL -- Normal range between ( 0.04 and 0.54 ) [place] %: 7.9 % -- Normal range between [...] ) Urine Bilirubin Dipstick: Negative Urine Specific [place]: 1.007 -- Normal range between ( 1.005 [...] 10/23/2006 Document Revised: 11/24/2017 Document Reviewed: 11/24/2017 [employer] Interactive Patient Education ?? 2019 [employer]. Emergency Awareness and Preventative Care STROKE is [...] Assistance with quitting is available by contacting [phone]-QNOT-NOW. This is a free resource providing counseling, [...] was given the opportunity to ask questions. Patient/Vice President Compliance Name: Patient/Vice President Compliance Signature: Relationship to Patient: Clinician/Hospital Vice President Compliance Signature: Please Provide a Telephone Number Where You Can Be Reached: Is it Permissible To Leave a Message? Date: Electronically signed by Jimena, [facility] Conversion Teletype Mechanic Kimberly at 02/19/2023 9:54 AM CDT documented in this encounter Plan of Treatment Not on file documented as of this encounter Visit Diagnoses Not on filedocumented in this encounter
--- OUTSIDE RECORDS SUMMARY | 2025-10-24 18:06 | XMS_ITS | Clinical Summary ---
Author Organization [facility] Address [address] [place] [address] Care Team Providers Care Director Of Event Marketing Name Role Phone Nadia Goodson MD Primary Care Provider [phone] Allergies Active Allergy Reactions Criticality Noted Date [...] Recorded Patient Health Questionnaire-2 Score 0 04/08/2025 [place] Depression Scale Answer Date Recorded [place] Depression Scale Total 0 02/23/2024 The thought [...] Visit Obstetrics & Gynecology [address] [place] [address] Tres Ybarra MD [address] [place] [address] Health Maintenance Due Date Last Done Comments [facility]-/Child/Adol SDOH Screenings 1995 [facility]- SDOH Screenings 2011 [facility]-Adult SDOH Screenings 2011 [facility]-Hepatitis B Vaccines (1 of 3 - 19+ 3-dose series) 2012 [facility]-Varicella Vaccines (2 of 2 - 13+ 2-dose series) 05/27/2015 04/29/2015 [id number] Vaccine (3 - Moderna risk series) 01/06/2021 [...] Pap, Source Cx/Vagina 02/13/2025 12:50 PM EDT [facility] EER Referred ThinPrep Pap and HPV See Note 02/13/2025 12:50 PM EDT [facility] PAP, THINPREP Normal 02/13/2025 12:50 PM EDT [facility] High Risk HPV Normal 02/13/2025 12:50 PM EDT [facility] Swab Vaginal and cervical cytologic material / Unknown Non-blood Collection / Unknown 02/06/2025 8:23 AM EDT 02/06/2025 12:54 PM EDT Narrative [facility] ([facility]) - 02/13/2025 12:50 PM EDT Authorized individuals can access the [employer] Enhanced Report with an [employer] Connect account using the following link. Your local lab can assist you in obtaining the patient report if you don't have a Connect account. [email or web address] Performed By: [facility] [address] [place] [id number] Distribution Systems Superintendent: Thompson Correa MD, PhD CLIA Number: [id number] SPECIMEN PART A. Cervical, Endocervical, Vaginal, ThinPrep Pap (Retail Advertising Executive) CYTOLOGY HX Date of Last Menstrual Period: N FINAL DIAGNOSIS INTERPRETATION: Negative for Intraepithelial Lesion or Malignancy. SPECIMEN ADEQUACY:Satisfactory for evaluation. Endocervical/transformation zone component present. Electronically Signed Out : [email or web address] Performed by: [facility] [address] [place] [address] [place] [address] Desire Alvarez MD, HR-HPV: Negative Test performed by the FDA-approved [employer] (Gen-Probe) APTIMA HPV test, which detects HPV genotypes: 16, 18, 31, 33, 35, 39, 45, 51, 52, 56, 58, 59, 66, and 68. This assay has been cleared for the specimen types listed below. Other specimen types have not been validated for this assay. -Clinician-collected ThinPrep Pap specimens. Performed by: [facility] [address] [place] [address] [place] [address] Desire Alvarez MD, Tres Ybarra MD LAB REF LAB BLOOD AND FLUID ORD Final Result [facility] [address] [place] [address] * HIV 1 & 2 Antibody/Antigen Screen (05/29/2023 10:20 AM EDT) HIV 1 & 2 Antibody/Antigen Screen Non Reactive Non Reactive 05/29/2023 2:06 PM EDT [facility] Comment:Screening for HIV 1 & 2 antibodies, and P24 antigen is NONREACTIVE. No confirmatory testing is required. Blood Venous blood specimen / Unknown Venipuncture / Unknown 05/29/2023 10:20 AM EDT 05/29/2023 1:01 PM EDT Result Mary Ybarra MD LAB BLOOD ORDERABLES Final Resu lt Performing Organization Address City/[facility]/ZIP Co de Phone Number [facility] [address] [place] [address] * Hepatitis C Antibody (05/29/2023 10:20 AM EDT) Hepatitis C Antibody Negative Negative 05/29/2023 2:02 PM EDT [facility] Blood Venous blood specimen / Unknown Venipuncture / Unknown 05/29/2023 10:20 AM EDT 05/29/2023 1:01 PM EDT Result Mary Ybarra MD LAB BLOOD ORDERABLES Final Resu lt Performing Organization Address City/[facility] Co de Phone Number HEALTHCARE [facility] [address] [place] [address] from Last 3 Months or Most Recently [...] Patient has decision-making capacity? Yes Care Teams Director Of Event Marketing Relationship Specialty Start Date End Date Nadia Goodson MD [address] [place] [address] PCP - General 01/17/23
--- OUTSIDE RECORDS SUMMARY | 2025-10-24 18:06 | XMS_ITS | Encounter Summary ---
Author Organization [employer] ([place], [place], [place], [place], [place]) Address [address] [place] [address] Care Team Providers Care Pharmacy Technologist Name Role Phone Unavailable Primary Care Provider Unavailabl e Encounter Details Date Type Department Care Team (Late st Contact Info) Description 09/24/2019 Transcribed Document [facility] [place] Medicine [address] [place] [address] ProviderLeón MD [address] [place] [address] Social History Tobacco Use Types [...] León Joseph MD - 09/24/2019 8:33 AM FAMILY MANAGER Pain Assessment Entered On: 09/24/2019 9:40 EST [...]
--- OUTSIDE RECORDS SUMMARY | 2025-10-24 18:06 | XMS_ITS | Encounter Summary ---
Author Organization [employer] ([place], [place], [place], [place], [place]) Address [address] [place] [address] Care Team Providers Care Underwater Trapper Name Role Phone Unavailable Primary Care Provider Unavailabl e Encounter Details Date Type Department Care Team (Late st Contact Info) Description 09/24/2019 Transcribed Document [facility] [place] [address] [place] [address] ProviderLeón MD [address] [place] [address] Social History Tobacco Use Types [...] - Historical ProviderMD - 09/24/2019 5:36 AM DISTRIBUTOR CLEANER [place] Suicide Severity Rating Scale (C-SSRS) Entered On: 09/24/2019 6:25 EST Performed On: 09/24/2019 6:24 EST by RENETTA NIXON RN [place] Suicide Severity Rating Scale (C-SSRS) CSSRS Past [...]
--- OUTSIDE RECORDS SUMMARY | 2025-10-24 18:06 | XMS_ITS | Encounter Summary ---
Author Organization [employer] ([place], [place], [place], [place], [place]) Address [address] [place] [address] Care Team Providers Care Service Desk Director Name Role Phone Unavailable Primary Care Provider Unavailabl e Encounter Details Date Type Department Care Team (Late st Contact Info) Description 09/24/2019 Transcribed Document [facility] [place] Family Medicine [place] [address] ProviderLeón MD [place] [address] Social History Tobacco Use Types [...] - León ProviderMD - 09/24/2019 5:36 AM BOX BLANK MACHINE OPERATOR HELPER ED Triage Entered On: 09/24/2019 5:47 EST Performed On: 09/24/2019 5:42 EST by IMNDI WONG CONCRETE FINISHER Triage Across the Room Triage Date/Time : 09/24/2019 5:42 EST Chief Complaint : Pt c/o fever and vaginal bleeding x2 days. Pt stated she is on her period but the bleeding is more than usual; +abdominal cramping. No med taken SPORTS TEACHER MINDI WONG RN - 09/24/2019 5:42 EST MINDI WONG RN - 09/24/2019 5:42 EST DCP GENERIC CODE Tracking Group : [facility] MINDI WONG RN - [...] 09/24/2019 05:47:35 EST) Problems(Active) Asthma (SNOMED CT :905581576 ) Name of Problem: Asthma ; Recorder: RAJNI RAMIREZ RN; Confirmation: Confirmed ; Classification: Medical ; Code: 333034580 ; Contributor System: PowerChart ; Last Updated: 09/01/2018 18:05 EDT ; Life Cycle Date: 09/01/2018 ; Life Cycle Status: Active ; Vocabulary: SNOMED CT Hypothyroid (SNOMED CT :35334261 ) Name of Problem: Hypothyroid ; Recorder: RAJNI RAMIREZ RN; Confirmation: Confirmed ; Classification: Medical ; Code: 32913862 ; Contributor System: PowerChart ; Last Updated: 09/01/2018 18:05 EDT ; Life Cycle Date: 09/01/2018 ; Life Cycle Status: Active ; Vocabulary: SNOMED CT PCOS (polycystic ovarian syndrome) (SNOMED CT :943025978 ) Name of Problem: PCOS (polycystic ovarian syndrome) ; Recorder: RAJNI RAMIREZ RN; Confirmation: Confirmed ; Classification: Medical ; Code: 139721024 ; Contributor System: [employer] ; Last Updated: 09/01/2018 18:05 EDT ; Life Cycle Date: 09/01/2018 ; Life Cycle Status: Active ; Vocabulary: SNOMED CT Diagnoses(Active) Abdominal pain Date: 09/24/2019 ; Diagnosis Type: Reason For Visit ; Confirmation: Complaint of ; Clinical Dx: Abdominal pain ; Classification: Medical ; Clinical Service: Emergency medicine ; Code: PNED ; Probability: 0 ; Diagnosis Code: [id number] Fever Date: 09/24/2019 ; Diagnosis Type: Reason For Visit ; Confirmation: Complaint of ; Clinical Dx: Fever ; Classification: Medical ; Clinical Service: Emergency medicine ; Code: PNED ; Probability: 0 ; Diagnosis Code: [id number] Vaginal bleeding Date: 09/24/2019 ; Diagnosis Type: Reason For Visit ; Confirmation: Complaint of ; Clinical Dx: Vaginal bleeding ; Classification: Medical ; Clinical Service: Emergency medicine ; Code: PNED ; Probability: 0 ; Diagnosis Code: [id number] ED Height and Weight Height Source : Stated Height Entry Format : [place] Height, Feet : 5 ft(Converted to: 152 cm, 60 Inch) Height, Inches : 5 Inch(Converted to: 0 ft 5 Inch, 12.70 cm) Clinical Height : 165.1 cm Weight Source, ED : Standing scale Weight Entry Format : [place] Weight, Pounds : 220 lb Clinical Dosing Weight : 100 kg Body Surface Area (BSA) : 2.06 m2 Body Mass Index : 36.7 kg/m2 (HI) [place] Body Weight (IBW) : 56.59 kg MINDI [...] - 09/24/2019 5:42 EST Electronically signed by [facility], [facility] Conversion Player Development Manager Cerner at 02/19/2023 9:39 AM CDT documented in this encounter Plan of Treatment Not on file documented as of this encounter Visit Diagnoses Not on filedocumented in this encounter
--- OUTSIDE RECORDS SUMMARY | 2025-10-24 18:06 | XMS_ITS | Encounter Summary ---
Author Organization [employer] ([place], [place], [place], [place], [place]) Address [address] [place] [address] Care Team Providers Care Creative Services Coordinator Name Role Phone Unavailable Primary Care Provider Unavailabl e Encounter Details Date Type Department Care Team (Late st Contact Info) Description 09/24/2019 Transcribed Document [facility] [place] Family Medicine [address] [place] [address] ProviderLeón MD [address] [place] [address] Social History Tobacco Use Types [...] León Joseph MD - 09/24/2019 5:36 AM RESPIRATORY CARE TECHNICIAN ED Assessment Entered On: 09/24/2019 6:25 [...] RN) EENT Assessment EENT Assessment WDL : [facility] HUSSAINRENETTA RN - 09/24/2019 6:24 EST Cardiovascular ASMT, ED Cardiovascular Assessment WDL : [facility] RENETTA NIXON RN - 09/24/2019 6:24 EST Pulses Grid Radial Pulse, Left : 2+ normal Radial Pulse, Right : 2+ normal RENETTA NIXON RN - 09/24/2019 6:24 EST Respiratory Respiratory Assessment WDL : [facility] RENETTA NIXON RN - 09/24/2019 6:24 EST Breath Sounds Assessment Grid All Lobes Breath Sounds : Clear RENETTA NIXON RN - 09/24/2019 6:24 EST Gastrointestinal ED Gastrointestinal Assessment WDL : [facility] with exceptions Gastrointestinal Symptoms : Abdominal pain RENETTA NIXON RN - 09/24/2019 6:24 EST Genitourinary Assessment, ED Genitourinary Assessment WDL : [facility] with exceptions Genitourinary Symptoms : Vaginal bleeding RENETTA NIXON RN - 09/24/2019 6:24 EST Musculoskeletal Musculoskeletal Assessment WDL : [facility] RENETTA NIXON RN - 09/24/2019 6:24 EST Integumentary Assessment Integumentary Assessment WDL : [facility] RENETTA NIXON RN - 09/24/2019 6:24 EST Neurologic ASMT, ED Neurologic Assessment WDL : [facility] RENETTA NIXON RN - 09/24/2019 6:24 EST documented in this encounter Plan of Treatment Not on file documented as of this encounter Visit Diagnoses Not on filedocumented in this encounter
--- OUTSIDE RECORDS SUMMARY | 2025-10-24 18:07 | XMS_ITS | Encounter Summary ---
Author Organization [employer] ([place], [place], [place], [place], [place]) Address [address] [place] [address] Care Team Providers Care Precast Worker Name Role Phone Unavailable Primary Care Provider Unavailabl e Encounter Details Date Type Department Care Team (Late st Contact Info) Description 11/25/2020 Transcribed Document [facility] Radiology [address] [place] [address] Virgie Armendariz MD [facility] Dept of Emergency Medicine [place], [place] [id number] Social History Tobacco Use Types Packs/Day Years [...] at maximum was 10 /10. , just MILK TESTER . The degree at present is moderate, [...] EST Height Source Stated Height Entry Format [place] Height/Length, WOLOF (ft) 5 ft Height/Length WOLOF 5 Inch CLINICALHEIGHT 165.1 cm [place] Body Weight 56.59 kg Weight Source, ED Critical estimated dosing weight Weight Entry Format [place] Weight Yoruba lb 220 lb CLINICALWEIGHT 100 kg Body [...] % 26.1 % Lymph # 2.37 x10(3)/uL [place] % 6.1 % [place] # 0.55 K/uL Eos % 1.3 % Eos # 0.12 x10(3)/uL Baso % 0.3 % Baso # 0.03 x10(3)/uL Slide Review No IG# 0.03 x10(3)/uL IG% 0.30 % . Radiology results: Radiology Results (Last 48 hours) [id number] -- 11/25/2020 10:52 CT Head WO (11/25/2020 [...] instructions. Notes: I certify that the Physician Intelligence Operations Specialist performed the services as delegated. I agree with the assessment, treatment plan and disposition of the patient as recorded by the Physician Intelligence Operations Specialist. This document was created with [employer] dictation software and unidentified linseed oil refiner errors may be present.. . documented in this encounter Plan of Treatment Not on file documented as of this encounter Visit Diagnoses Not on filedocumented in this encounter
--- OUTSIDE RECORDS SUMMARY | 2025-10-24 18:07 | XMS_ITS | Referral Summary ---
Author Organization [employer] ([place], [place], [place], [place], [place]) Address [address] [place] [address] Care Team Providers Care Tester Vibrator Equipment Name Role Phone Unavailable Primary Care Provider [...]
--- OUTSIDE RECORDS SUMMARY | 2025-10-24 18:07 | XMS_ITS | Clinical Summary ---
Author Organization [employer] ([place], [place], [place], [place], [place]) Address [address] [place] [address] Care Team Providers Care Manager Audio Name Role Phone Unavailable Primary Care Provider [...]
--- OUTSIDE RECORDS SUMMARY | 2025-10-24 18:07 | XMS_ITS | Encounter Summary ---
Author Organization [employer] ([place], [place], [place], [place], [place]) Address [address] [place] [address] Care Team Providers Care Secy Name Role Phone Unavailable Primary Care Provider Unavailabl e Encounter Details Date Type Department Care Team (Late st Contact Info) Description 11/25/2020 Transcribed Document [facility] [place] [address] [place] [address] ProviderLeón MD [address] [place] [address] Social History Tobacco Use Types [...] - Historical ProviderMD - 11/25/2020 10:52 AM DEAD MAIL CHECKER [place] Suicide Severity Rating Scale (C-SSRS) Entered On: 11/25/2020 14:40 EST Performed On: 11/25/2020 14:40 EST by LALI SEAY RN [place] Suicide Severity Rating Scale (C-SSRS) CSSRS Past [...]
--- OUTSIDE RECORDS SUMMARY | 2025-10-24 18:07 | XMS_ITS | Encounter Summary ---
Author Organization [employer] ([place], [place], [place], [place], [place]) Address [address] [place] [address] Care Team Providers Care Avionics Mechanic Name Role Phone Unavailable Primary Care Provider Unavailabl e Encounter Details Date Type Department Care Team (Late st Contact Info) Description 11/25/2020 Transcribed Document [facility] [place] Family Medicine [facility] [place] [address] ProviderLeón MD [address] [place] [address] Social History Tobacco Use Types [...] - Historical ProviderMD - 11/25/2020 3:34 PM HISTORY PROFESSOR Electronically signed by Jimena [facility] Conversion Oven Operator Automatic Cerner at 02/19/2023 9:52 AM CDT documented in this encounter Plan of Treatment Not on file documented as of this encounter Visit Diagnoses Not on filedocumented in this encounter
--- OUTSIDE RECORDS SUMMARY | 2025-10-24 18:07 | XMS_ITS | Encounter Summary ---
Author Organization [employer] ([place], [place], [place], [place], [place]) Address [address] [place] [address] Care Team Providers Care Meal Grinder Tender Name Role Phone Unavailable Primary Care Provider Unavailabl e Encounter Details Date Type Department Care Team (Late st Contact Info) Description 11/25/[address] [facility] [place] Family Medicine [address] [place] [address] ProviderLeón MD [address] [place] [address] Social History Tobacco Use Types [...] - Historical ProviderMD - 11/25/2020 11:11 AM SENIOR PRODUCT ANALYST ED POC - URINE HCG Entered On: 11/25/2020 14:40 EST Performed On: 11/25/2020 14:20 EST by LALI SEAY RN Point of Care Urine HCG HCG Result : Negative Internal Control Line Present : Yes Internal Control Background Clear : Yes LALI SEAY RN - 11/25/2020 14:39 EST Electronically signed by Jimena [facility] Conversion Forklift Supervisor Cerner at 02/19/2023 9:37 AM CDT documented in this encounter Plan of Treatment Not on file documented as of this encounter Visit Diagnoses Not on filedocumented in this encounter
--- OUTSIDE RECORDS SUMMARY | 2025-10-24 18:07 | XMS_ITS | Encounter Summary ---
Author Organization [employer] ([place], [place], [place], [place], [place]) Address [address] [place] [address] Care Team Providers Care Editorial Cartoonist Name Role Phone Unavailable Primary Care Provider Unavailabl e Encounter Details Date Type Department Care Team (Late st Contact Info) Description 11/25/2020 Transcribed Document [facility] [place] Family Medicine [address] [place] [address] ProviderLeón MD [address] [place] [address] Social History Tobacco Use Types [...] - León ProviderMD - 11/25/2020 10:52 AM BAT BOY/GIRL ED Assessment Entered On: 11/25/2020 14:03 EST Performed On: 11/25/2020 14:01 EST by LALI SEAY RN ED Quick Look Assessment Level of Consciousness : Alert, Awake Affect/Behavior : Appropriate, Calm, Cooperative Orientation : Oriented x 4 Skin Temperature : Warm Skin Description : Dry, [place] LALI SEAY RN - 11/25/2020 14:01 EST ED General-Functional Assess Information Obtained From : Patient Preferred Communication Mode : Verbal Communication Barrier : None Primary Language : Arabic Any Spiritual/Cultural Needs or Requests : No [...] commands Canelo Best Verbal Response : Oriented Jefferson Eye Opening Response : Spontaneous [place] Coma Score : 15 LALI SEAY RN - 11/25/2020 14:01 EST Electronically signed by Jimena [facility] Conversion Decorator Inspector Cerner at 02/19/2023 10:00 AM CDT documented in this encounter Plan of Treatment Not on file documented as of this encounter Visit Diagnoses Not on filedocumented in this encounter
--- OUTSIDE RECORDS SUMMARY | 2025-10-24 18:07 | XMS_ITS | Encounter Summary ---
Author Organization [employer] ([place], [place], [place], [place], [place]) Address [address] [place] [address] Care Team Providers Care Bill Checker Name Role Phone Unavailable Primary Care Provider Unavailabl e Encounter Details Date Type Department Care Team (Late st Contact Info) Description 09/24/2019 Transcribed Document [facility] Family Medicine [address] [place] [address] ProviderLeón MD [address] [place] [address] Social History Tobacco Use Types [...] - Historical ProviderMD - 09/24/2019 6:15 AM BIKE TECHNICIAN Patient: PAM FENG Age: 24 years [...] than usual; +abdominal cramping. No med taken COLLECTION SYSTEMS ADMINISTRATOR . History of Present Illness 24-year-old female [...] started fertility medication last Monday. Patient sees sports team marketing intern Chandan Lucas. Patient is with history of [...] EST Height Source Stated Height Entry Format [place] Height/Length, [place] (ft) 5 ft Height/Length [place] 5 Inch CLINICALHEIGHT 165.1 cm [place] Body Weight 56.59 kg Weight Source, ED Standing scale Weight Entry Format [place] Weight [place]ry[place]in[place] lb 220 lb CLINICALWEIGHT 100 kg Body [...] Triage: ED C-SSRS: ED Clinical Reconciliation: ED microsoft dynamics ax developer: HCG Urine Qualitative: LENNY Prep: NaCl 0.9% [...] Color Red Urine Appearance Cloudy Urine Specific [place] 1.007 Urine pH Dipstick 5.5 LOW Urine [...] % 27.7 % Lymph # 2.10 K/uL [place] % 7.9 % [place] # 0.60 K/uL Eos % 4.2 % Eos # 0.32 K/uL Baso % 0.4 % Baso # 0.03 K/uL Slide Review No IG# 0 x10(3)/uL IG% 0 % PT 9.6 Second(s) INR 0.9 PTT 25.4 Second(s) Wet Prep See Result LENNY Prep See Result Specimen Type swab . Radiology results: Radiology Results (Last 48 hours) [id number] -- 09/24/2019 05:36 US Transvaginal Non Ob [...] yesterday. Rosenda Meyer MD Electronically signed by [facility] Conversion Bead Supervisor Cerner at 02/19/2023 9:58 AM CDT documented in this encounter Plan of Treatment Not on file documented as of this encounter Visit Diagnoses Not on filedocumented in this encounter
--- OUTSIDE RECORDS SUMMARY | 2025-10-24 18:07 | XMS_ITS | Encounter Summary ---
Author Organization [employer] ([place], [place], [place], [place], [place]) Address [address] [place] [address] Care Team Providers Care Lung Puller Name Role Phone Unavailable Primary Care Provider Unavailabl e Encounter Details Date Type Department Care Team (Late st Contact Info) Description 11/25/2020 Transcribed Document [facility] [place] Family Medicine [address] [place] [address] ProviderLeón MD [address] [place] [address] Social History Tobacco Use Types [...] - León ProviderMD - 11/25/2020 4:27 PM TECHNICAL PROPOSAL WRITER ED Discharge Entered On: 11/25/2020 16:27 EST [...] 11/25/2020 16:27 EST Electronically signed by Jimena [facility] Conversion Road Driver Cerner at 02/19/2023 9:39 AM CDT documented in this encounter Plan of Treatment Not on file documented as of this encounter Visit Diagnoses Not on filedocumented in this encounter
--- OUTSIDE RECORDS SUMMARY | 2025-10-24 18:07 | XMS_ITS | Encounter Summary ---
Author Organization [employer] ([place], [place], [place], [place], [place]) Address [address] [place] [address] Care Team Providers Care Social Sciences Research Scientist Name Role Phone Unavailable Primary Care Provider Unavailabl e Encounter Details Date Type Department Care Team (Late st Contact Info) Description 11/25/2020 Transcribed Document [facility] [place] Family Medicine [address] [place] [address] ProviderLeón MD [address] [place] [address] Social History Tobacco Use Types [...] - Historical ProviderMD - 11/25/2020 10:52 AM WEATHER CLERK [place] Violence Assessment Entered On: 11/25/2020 14:03 EST Performed On: 11/25/2020 14:03 EST by LALI SEAY RN Broset Violence Assessment Bro[place] Violence Checklist of Symptoms : None Broset Violence Symptoms Subtotal : 0 Broset Violence Symptoms Indicator : Low risk (0) LALI SEAY RN - 11/25/2020 14:03 EST Electronically signed by Jimena [facility] Conversion Retail Product Advisor Cerner at 02/19/2023 9:42 AM CDT documented in this encounter Plan of Treatment Not on file documented as of this encounter Visit Diagnoses Not on filedocumented in this encounter
--- OUTSIDE RECORDS SUMMARY | 2025-10-24 18:07 | XMS_ITS | Encounter Summary ---
Author Organization [employer] ([place], [place], [place], [place], [place]) Address [address] [place] [address] Care Team Providers Care Lining Parts Sewer Name Role Phone Unavailable Primary Care Provider Unavailabl e Encounter Details Date Type Department Care Team (Late st Contact Info) Description 11/25/2020 Transcribed Document [facility] [place] Family Medicine [address] [place] [address] ProviderLeón MD [address] [place] [address] Social History Tobacco Use Types [...] León Joseph MD - 11/25/2020 4:12 PM CARD SERVICES SPECIALIST [facility] [place] [address] PAM FENG :1995 Visit Time:11/25/2020 Your [...] range between ( 0.0 and 7.0 ) [place] #: 0.55 K/uL -- Normal range between ( 0.16 and 1.00 ) Eos #: 0.12 x10(3)/uL -- Normal range between ( 0.00 and 0.80 ) [place] %: 6.1 % -- Normal range between [...] instructions at home: Managing pain ??? Take bqig-bbn-nhrlhsa and prescription medicines only as told by [...] Reviewed: 02/02/2018 Elsevier Patient Education ?? 2020 [facility]. Emergency Awareness and Preventative Care STROKE is [...] Assistance with quitting is available by contacting 3-923-RSCQ-NOW. This is a free resource providing counseling, [...] given the opportunity to ask questions. Patient/Manager Information Name: Patient/Manager Information Signature: Relationship to Patient: Clinician/Hospital Manager Information Signature: Please Provide a Telephone Number Where You Can Be Reached: Is it Permissible To Leave a Message? Date: documented in this encounter Plan of Treatment Not on file documented as of this encounter Visit Diagnoses Not on filedocumented in this encounter
--- OUTSIDE RECORDS SUMMARY | 2025-10-24 18:07 | XMS_ITS | Encounter Summary ---
Author Organization [employer] ([place], [place], [place], [place], [place]) Address [address] [place] [address] Care Team Providers Care Digital Assistant Name Role Phone Unavailable Primary Care Provider Unavailabl e Encounter Details Date Type Department Care Team (Late st Contact Info) Description 09/24/2019 Transcribed Document [facility] [place] [address] [place] [address] ProviderLeón MD [address] [place] [address] Social History Tobacco Use Types [...] - Historical ProviderMD - 09/24/2019 7:56 AM FLANGE TURNER Vital Signs ED Entered On: 09/24/2019 8:38 [...]
--- OUTSIDE RECORDS SUMMARY | 2025-10-24 18:07 | XMS_ITS | Encounter Summary ---
Author Organization [employer] ([place], [place], [place], [place], [place]) Address [address] [place] [address] Care Team Providers Care Power Manager Name Role Phone Unavailable Primary Care Provider Unavailabl e Encounter Details Date Type Department Care Team (Late st Contact Info) Description 09/26/[address] [facility] [place] Family Medicine [address] [place] [address] ProviderLeón MD [address] [place] [address] Social History Tobacco Use Types [...] - Historical ProviderMD - 09/26/2019 11:00 AM IMPROVEMENT SPECIALIST Urine Culture Collected: 09/24/2019 Complete Body site: Specimen Type: U CleanCatch 09/26/2019 09:56 09/26/2019 11:00 (KINGSLEY MEJIA PA-C) Reviewed by Provider, No further action required 3 or more organisms suggesting contamination documented in this encounter Plan of Treatment Not on file documented as of this encounter Visit Diagnoses Not on filedocumented in this encounter
--- OUTSIDE RECORDS SUMMARY | 2025-10-24 18:07 | XMS_ITS | Clinical Summary ---
Author Organization [facility] Address [address] [place] [address] Care Team Providers Care Insole Presser Name Role Phone Nadia Drummond MD Primary Care Provider [phone] Allergies Active Allergy Reactions Criticality Noted Date [...] Description 07/28/2025 11:15 AM EDT Office Visit [facility] [address] [facility] [place] [address] Cheri Harden DO Acquired hypothyroidism (Primary Dx); Solitary thyroid nodule 07/28/2025 Travel from Last 3 Months Immunizations Immunization [...] Caitlin Obesity Mother Caitlin Obesity Paternal Grandmother [place] Relation Name Status Comments Brother Alive Father Anam Alive Maternal Grandfather Aren Maternal Grandmother Yvtete Mother Caitlin Alive Paternal Grandfather Paternal Grandmother [place] Social History Tobacco Use Types Packs/Day Years [...] EST Office Visit [facility] [address] [place] [address] Cheri Harden, [address] [place] [address] Health Maintenance Due Date Last Done Comments [...] 3:08 PM EDT Performed at: 01 - [facility] [id number] Lead Military Analyst: Guillermo Choi PhD, Phone: [phone] Patient Fasting: N Charla Vegas PA-C LAB BLOOD ORDERABLES Final Result [facility] (AMBULATORY) [address] [id number], [place] [phone] [facility] [address] [place] [address], [place] [phone] from Last 3 Months or Most Recently Relevant to Health Maintenance Insurance KENDRA OREILLY, [place] [id number] [facility] PPO Care Teams Insole Presser Relationship Specialty Start Date End Date Nadia Drummond MD PCP - General Family Medicine 07/15/20
[2025-10-24 18:18] LABS: Microscopic, Urine URINE MICROSCOPIC (MICROSCOPIC)
[2025-10-24 18:19] LABS: Bilirubin,Urine Negative (Negative); Color,Urine YELLOW (Yellow); Glucose,Urine (UA) Negative (Negative); Ketones,Urine TRACE (Negative); Leukocyte Esterase,Urine Negative (Negative); PH,Urine 6.0 (5.0-8.5); Protein,Urine Negative (Negative); Specific Gravity, Urine >= 1.030 (1.005-1.030); Urobilinogen,Urine 0.2 EU/dl (0.2)
[2025-10-24] MEDS: LACTATED RINGERS 1000ML 1,000 ML 999 ML IV ×2 (18:24→20:12)
[2025-10-24 18:30] VITALS: BP 103/68; PULSE 77; RESP 16; TEMP 36.7; O2SAT 100; BMI 26.8
[2025-10-24 18:56] LABS: Bacteria,Urine 1+ /lpf; Mucus,Urine 1+ /lpf; Squamous Epithelial Cell,Urine 20-50 #/hpf (0-5)
== END 2025-10-24 21:55 | disposition home or self-care (01) ==
LOC: OBOUT 18:04 → OB 18:05
PROVIDERS: PCP Family Medicine; Visit Provider Obstetrics & Gynecology
DX: Z34.82 Encounter for supervision of other normal pregnancy, second trimester (principal); Z3A.20 20 weeks gestation of pregnancy
CPT/HCPCS: 81001; 99212; J7120

== ENCOUNTER 2025-11-04 11:08 | Outpatient (CLI) | payer BC, SELFPAY ==
--- OUTSIDE RECORDS SUMMARY | 2021-05-03 11:23 | XMS_ITS | Encounter Summary ---
[facility] Address [address] [place] [address] Care Team Providers Care Nursing Student Name Role Phone Nadia Drummond MD Primary Care Provider [phone] Reason for Visit * Diagnostic Imaging (Routine) - Closed Specialty Diagnoses / Procedures Referred By Contac t Referred To Contact Radiology Diagnoses Hypothyroidism, unspecified type Procedures US Thyroid Cheri Harden DO [address] [place] [address] Phone: tel: fax: [facility] [address] [place] [address] Phone: tel: fax: Referral ID Status Reason Start Date Expiration Date Visits Re quested Visits Authorized [id number] Closed 05/03/2021 05/03/2022 1 1 Encounter Details Date Type Department Care Team (Late st Contact Info) Description 05/03/2021 12:23 PM EDT Hospital Encounter [facility] [address] [place] [address] Social History Tobacco Use Types [...] as of this encounter Plan of Treatment Not on file documented as of this encounter Procedures Procedure [...] documented as of this encounter Care Teams Nursing Student Relationship Specialty Start Date End Date Nadia Drummond MD PCP - General Family Medicine 07/15/20 documented as of this encounter
--- OUTSIDE RECORDS SUMMARY | 2022-10-13 09:42 | XMS_ITS | Encounter Summary ---
Author [facility] Address [address] [place] [address] Care Team Providers Care Senior Media Buyer Name Role Phone Nadia Drummond MD Primary Care Provider [phone] Reason for Visit * Diagnostic Imaging (Routine) - Closed Specialty Diagnoses / Procedures Referred By Idalia caruso Referred To Contact Radiology Diagnoses Solitary thyroid nodule Procedures US Thyroid Cheri Harden DO 3084 [employer] CIR JU[address] [place] [address] Phone: tel: fax: Referral ID Status Reason Start Date Expiration Date Visits Re quested Visits Authorized [id number] Closed 10/13/2022 10/13/2023 1 1 Encounter Details Date Type Department Care Team (Late st Contact Info) Description 10/13/2022 9:42 AM EST Hospital Encounter [facility] ENDOCRINOLOGY 30[address] CIR [address] [place] [phone] Social History Tobacco Use Types Packs/Day Years [...] as of this encounter Care Teams Senior Media Buyer Relationship Specialty Start Date End Date Nadia Drummond MD PCP - General Family Medicine 07/15/20 documented as of this encounter
[2025-11-04 11:27] VITALS: BMI 26.8
--- OUTSIDE RECORDS SUMMARY | 2025-11-04 11:27 | XMS_ITS | Encounter Summary ---
Author Organization [employer] ([place], [place], [place], [place], [place]) Address [address] [place] [address] Care Team Providers Care Geriatric Assistant Name Role Phone Unavailable Primary Care Provider Unavailabl e Encounter Details Date Type Department Care Team (Late st Contact Info) Description 09/26/2019 Transcribed Document [facility] [place] [address] [place] [address] ProviderLeón MD [address] [place] [address] Social History Tobacco Use Types [...] - Historical ProviderMD - 09/26/2019 11:00 AM MEDICAL EQUIPMENT TECHNICIAN Urine Culture Collected: 09/24/2019 Complete Body site: Specimen Type: U CleanCatch 09/26/2019 09:56 09/26/2019 11:00 (KINGSLEY MEJIA PA-C) Reviewed by Provider, No further action required 3 or more organisms suggesting contamination documented in this encounter Plan of Treatment Not on file documented as of this encounter Visit Diagnoses Not on filedocumented in this encounter
--- OUTSIDE RECORDS SUMMARY | 2025-11-04 11:27 | XMS_ITS | Encounter Summary ---
Author Organization [employer] ([place], [place], [place], [place], [place]) Address [address] [place] [address] Care Team Providers Care Service Unit Operator Name Role Phone Unavailable Primary Care Provider Unavailabl e Encounter Details Date Type Department Care Team (Late st Contact Info) Description 09/24/2019 Transcribed Document [facility] [place] [address] [place] [address] ProviderLeón MD [address] [place] [address] Social History Tobacco Use Types [...] León Joseph MD - 09/24/2019 5:36 AM EDUCATION SPECIALIST ED Assessment Entered On: 09/24/2019 6:25 EST Performed On: 09/24/2019 6:24 EST by RENETTA NIXON RN ED Quick Look Assessment Level of Consciousness : Alert, Awake RENETTA NIXON RN - 09/24/2019 6:24 EST ED General-Functional Assess Information Obtained From : Patient Communication Barrier : None Primary Language : Vietnamese Any Spiritual/Cultural Needs or Requests : No [...] [facility] HUSSAINRENETTA RN - 09/24/2019 6:24 [...] 09/24/2019 6:24 EST Electronically signed by Jimena [facility] Conversion Webfocus Developer Cerner at 02/19/2023 9:43 AM CDT documented in this encounter Plan of Treatment Not on file documented as of this encounter Visit Diagnoses Not on filedocumented in this encounter
--- OUTSIDE RECORDS SUMMARY | 2025-11-04 11:27 | XMS_ITS | Encounter Summary ---
Author Organization [employer] ([place], [place], [place], [place], [place]) Address [address] [place] [address] Care Team Providers Care Ornamental Iron Worker Helper Name Role Phone Unavailable Primary Care Provider Unavailabl e Encounter Details Date Type Department Care Team (Late st Contact Info) Description 09/24/2019 Transcribed Document [facility] [place] [facility] [place] [address] ProviderLeón MD [address] [place] [address] Social History Tobacco Use Types [...] - León ProviderMD - 09/24/2019 9:17 AM LOCAL TELEPHONE OPERATOR documented in this encounter Plan of Treatment Not on file documented as of this encounter Visit Diagnoses Not on filedocumented in this encounter
--- OUTSIDE RECORDS SUMMARY | 2025-11-04 11:27 | XMS_ITS | Encounter Summary ---
Author Organization [facility] Address [address] [place] [address] Care Team Providers Care Folder Taper Operator Name Role Phone Pcp, No Primary Care Provider Nadia Todd MD Primary Care Provider [phone] Pcp, No Primary Care Provider Nadia Todd MD Primary Care Provider [phone] Encounter Details Date Type Department Care Team ([facility] st Contact Info) Description 10/31/2019 [facility] Encounter Historical OTTR [address] [place] [address] Provider, [address] [address] Social History Tobacco Use Types [...] EDT Office Visit Obstetrics & Gynecology [address] [place] [address] Tres Ybarra MD [address] [place] [address] documented as of this encounter Visit Diagnoses Not on filedocumented in this encounter Care Teams Folder Taper Operator Relationship Specialty Start Date End Date Pcp, No [address] [place] [address] PCP - General 08/07/21 08/08/21 [place] [address] PCP - General 08/09/21 08/09/21 Pcp, No [address] [place] [address] PCP - General Family Medicine 07/08/22 01/16/23 [place] [address] PCP - General 01/17/23 documented as of this encounter
--- OUTSIDE RECORDS SUMMARY | 2025-11-04 11:27 | XMS_ITS | Encounter Summary ---
Author Organization [employer] ([place], [place], [place], [place], [place]) Address [address] [place] [address] Care Team Providers Care Yardage Caller Name Role Phone Unavailable Primary Care Provider Unavailabl e Encounter Details Date Type Department Care Team (Late st Contact Info) Description 09/24/2019 Transcribed Document [facility] [place] [facility] [place] [address] ProviderLeón [place] [address] Social History Tobacco Use Types [...] - León ProviderMD - 09/24/2019 5:36 AM DANCE STUDIO MANAGER ED Triage Entered On: 09/24/2019 5:47 EST Performed On: 09/24/2019 5:42 EST by MINDI WONG HEALTHCARE ADVISORY SERVICES MANAGER Triage Across the Room Triage Date/Time : 09/24/2019 5:42 EST Chief Complaint : Pt c/o fever and vaginal bleeding x2 days. Pt stated she is on her period but the bleeding is more than usual; +abdominal cramping. No med taken PLANT BIOLOGY PROFESSOR MINDI WONG RN - 09/24/2019 5:42 EST MINDI WONG RN - 09/24/2019 5:42 EST DCP GENERIC CODE Tracking Group : [facility] ED [facility] MINDI WONG RN - [...] 09/24/2019 05:47:35 EST) Problems(Active) Asthma (SNOMED CT :037305625 ) Name of Problem: Asthma ; Recorder: RAJNI RAMIREZ RN; Confirmation: Confirmed ; Classification: Medical ; Code: 551496996 ; Contributor System: PowerChart ; Last Updated: 09/01/2018 18:05 EDT ; Life Cycle Date: 09/01/2018 ; Life Cycle Status: Active ; Vocabulary: SNOMED CT Hypothyroid (SNOMED CT :51580820 ) Name of Problem: Hypothyroid ; Recorder: RAJNI RAMIREZ RN; Confirmation: Confirmed ; Classification: Medical ; Code: 90848916 ; Contributor System: PowerChart ; Last Updated: 09/01/2018 18:05 EDT ; Life Cycle Date: 09/01/2018 ; Life Cycle Status: Active ; Vocabulary: SNOMED CT PCOS (polycystic ovarian syndrome) (SNOMED CT :656367507 ) Name of Problem: PCOS (polycystic ovarian syndrome) ; Recorder: RAJNI RAMIREZ RN; Confirmation: Confirmed ; Classification: Medical ; Code: 349319804 ; Contributor System: [employer] ; Last Updated: 09/01/2018 18:05 EDT ; Life Cycle Date: 09/01/2018 ; Life Cycle Status: Active ; Vocabulary: SNOMED CT Diagnoses(Active) Abdominal pain Date: 09/24/2019 ; Diagnosis Type: Reason For Visit ; Confirmation: Complaint of ; Clinical Dx: Abdominal pain ; Classification: Medical ; Clinical Service: Emergency medicine ; Code: PNED ; Probability: 0 ; Diagnosis Code: [id number] Fever Date: 09/24/2019 ; Diagnosis Type: Reason For Visit ; Confirmation: Complaint of ; Clinical Dx: Fever ; Classification: Medical ; Clinical Service: Emergency medicine ; Code: PNED ; Probability: 0 ; Diagnosis Code: [id number] Vaginal bleeding Date: 09/24/2019 ; Diagnosis Type: Reason For Visit ; Confirmation: Complaint of ; Clinical Dx: Vaginal bleeding ; Classification: Medical ; Clinical Service: Emergency medicine ; Code: PNED ; Probability: 0 ; Diagnosis Code: [id number] ED Height and Weight Height Source : Stated Height Entry Format : [place] Height, Feet : 5 ft(Converted to: 152 cm, 60 Inch) Height, Inches : 5 Inch(Converted to: 0 ft 5 Inch, 12.70 cm) Clinical Height : 165.1 cm Weight Source, ED : Standing scale Weight Entry Format : [place] Weight, Pounds : 220 lb Clinical Dosing Weight : 100 kg Body Surface Area (BSA) : 2.06 m2 Body Mass Index : 36.7 kg/m2 (HI) [place] Body Weight (IBW) : 56.59 kg MINDI [...] - 09/24/2019 5:42 EST Electronically signed by [facility], [facility] Conversion Sash Sticker Cerner at 02/19/2023 9:39 AM CDT documented in this encounter Plan of Treatment Not on file documented as of this encounter Visit Diagnoses Not on filedocumented in this encounter
--- OUTSIDE RECORDS SUMMARY | 2025-11-04 11:27 | XMS_ITS | Encounter Summary ---
Author Organization [employer] ([place], [place], [place], [place], [place]) Address [address] [place] [address] Care Team Providers Care Wellness Nurse Name Role Phone Unavailable Primary Care Provider Unavailabl e Encounter Details Date Type Department Care Team (Late st Contact Info) Description 09/24/2019 Transcribed Document [facility] [place] [address] [place] [address] ProviderLeón MD [address] [place] [address] Social History Tobacco Use Types [...] León Joseph MD - 09/24/2019 8:33 AM DIRECTOR OF CREATIVE SERVICES Pain Assessment Entered On: 09/24/2019 9:40 EST [...]
--- OUTSIDE RECORDS SUMMARY | 2025-11-04 11:27 | XMS_ITS | Encounter Summary ---
Author Organization [employer] ([place], [place], [place], [place], [place]) Address [address] [place] [address] Care Team Providers Care Retail Specialist Name Role Phone Unavailable Primary Care Provider Unavailabl e Encounter Details Date Type Department Care Team (Late st Contact Info) Description 11/25/2020 Transcribed Document [facility] [place] Family Medicine [address] [place] [address] ProviderLeón MD [address] [place] [address] Social History Tobacco Use Types [...] - Historical ProviderMD - 11/25/2020 10:52 AM GRADES 1 6 TUTOR [place] Violence Assessment Entered On: 11/25/2020 14:03 EST Performed On: 11/25/2020 14:03 EST by LALI SEAY RN [place] Violence Assessment [place] Violence Checklist of Symptoms : None [place] Violence Symptoms Subtotal : 0 [place] Violence Symptoms Indicator : Low risk (0) LALI SEAY RN - 11/25/2020 14:03 EST Electronically signed by Jimena [facility] Conversion Etl Consultant Cerner at 02/19/2023 9:42 AM CDT documented in this encounter Plan of Treatment Not on file documented as of this encounter Visit Diagnoses Not on filedocumented in this encounter
--- OUTSIDE RECORDS SUMMARY | 2025-11-04 11:27 | XMS_ITS | Encounter Summary ---
Author Organization [employer] ([place], [place], [place], [place], [place]) Address [address] [place] [address] Care Team Providers Care Corporate Planning Manager Name Role Phone Unavailable Primary Care Provider Unavailabl e Encounter Details Date Type Department Care Team (Late st Contact Info) Description 09/24/2019 Transcribed Document [facility] [place] [address] [place] [address] ProviderLeón MD [address] [place] [address] Social History Tobacco Use Types [...] - Historical ProviderMD - 09/24/2019 5:36 AM AUTOMOBILE DETAILER [place] Suicide Severity Rating Scale (C-SSRS) Entered On: 09/24/2019 6:25 EST Performed On: 09/24/2019 6:24 EST by RENETTA NIXON RN [place] Suicide Severity Rating Scale (C-SSRS) CSSRS Past Month Wish to be : No CSSRS Past Month Suicidal Thoughts : No CSSRS Lifetime Suicide Behavior : No Suicide Severity Rating Score : 0 Suicide Severity Rating : No Additional Care Required at this time RENETTA NIXON RN - 09/24/2019 6:24 EST Electronically signed by Errol Hess Conversion Storage Battery Inspector And Tester Cerner at 02/19/2023 9:41 AM CDT documented in this encounter Plan of Treatment Not on file documented as of this encounter Visit Diagnoses Not on filedocumented in this encounter
--- OUTSIDE RECORDS SUMMARY | 2025-11-04 11:27 | XMS_ITS | Encounter Summary ---
Author Organization [employer] ([place], [place], [place], [place], [place]) Address [address] [place] [address] Care Team Providers Care Traffic Analysis Technician Name Role Phone Unavailable Primary Care Provider Unavailabl e Encounter Details Date Type Department Care Team (Late st Contact Info) Description 11/25/2020 Transcribed Document [facility] [place] Family Medicine [address] [place] [address] ProviderLeón MD [address] [place] [address] Social History Tobacco Use Types [...] - Historical ProviderMD - 11/25/2020 11:11 AM PULVERIZING AND SIFTING OPERATOR ED POC - URINE HCG Entered On: 11/25/2020 14:40 EST Performed On: 11/25/2020 14:20 EST by LALI SEAY RN Point of Care Urine HCG HCG Result : Negative Internal Control Line Present : Yes Internal Control Background Clear : Yes LALI SEAY RN - 11/25/2020 14:39 EST Electronically signed by Jimena [facility] Conversion Solar Installation Technician Cerner at 02/19/2023 9:37 AM CDT documented in this encounter Plan of Treatment Not on file documented as of this encounter Visit Diagnoses Not on filedocumented in this encounter
--- OUTSIDE RECORDS SUMMARY | 2025-11-04 11:27 | XMS_ITS | Clinical Summary ---
Author Organization [employer] ([place], [place], [place], [place], [place]) Address [address] [place] [address] Care Team Providers Care Rail Operator Name Role Phone Unavailable Primary Care [...]
--- OUTSIDE RECORDS SUMMARY | 2025-11-04 11:27 | XMS_ITS | Encounter Summary ---
Author Organization [employer] ([place], [place], [place], [place], [place]) Address [address] [place] [address] Care Team Providers Care Advanced Registered Nurse Name Role Phone Unavailable Primary Care Provider Unavailabl e Encounter Details Date Type Department Care Team (Late st Contact Info) Description 09/24/2019 Transcribed Document [facility] [place] [address] [place] [address] ProviderLeón MD [address] [place] [address] Social History Tobacco Use Types [...] - Historical ProviderMD - 09/24/2019 6:15 AM COOKER CLEANER Patient: PAM FENG Age: 24 years Sex: [...] than usual; +abdominal cramping. No med taken CLINICAL ADMISSIONS MANAGER . History of Present Illness 24-year-old female [...] started fertility medication last Monday. Patient sees licensed direct entry midwife Chandan Lucas. Patient is with history of [...] EST Height Source Stated Height Entry Format Char[place] Height/Length, TELUGU (ft) 5 ft Height/Length TELUGU 5 Inch CLINICALHEIGHT 165.1 cm [place] Body Weight 56.59 kg Weight Source, ED Standing scale Weight Entry Format Charlo Weight Gambian lb 220 lb CLINICALWEIGHT 100 kg Body [...] Triage: ED C-SSRS: ED Clinical Reconciliation: ED human resource officer: HCG Urine Qualitative: LENNY Prep: NaCl 0.9% [...] Color Red Urine Appearance Cloudy Urine Specific [place] 1.007 Urine pH Dipstick 5.5 LOW Urine [...] % 27.7 % Lymph # 2.10 K/uL [place] % 7.9 % [place] # 0.60 K/uL Eos % 4.2 % Eos # 0.32 K/uL Baso % 0.4 % Baso # 0.03 K/uL Slide Review No IG# 0 x10(3)/uL IG% 0 % PT 9.6 Second(s) INR 0.9 PTT 25.4 Second(s) Wet Prep See Result LENNY Prep See Result Specimen Type swab . Radiology results: Radiology Results (Last 48 hours) [id number] -- 09/24/2019 05:36 US Transvaginal Non Ob [...] yesterday. Rosenda Meyer MD Electronically signed by [facility] Conversion Laboratory Miller Cerner at 02/19/2023 9:58 AM CDT documented in this encounter Plan of Treatment Not on file documented as of this encounter Visit Diagnoses Not on filedocumented in this encounter
--- OUTSIDE RECORDS SUMMARY | 2025-11-04 11:27 | XMS_ITS | Referral Summary ---
Author Organization [employer] ([place], [place], [place], [place], [place]) Address [address] [place] [address] Care Team Providers Care Area Supervisor Name Role Phone Unavailable Primary Care [...]
--- OUTSIDE RECORDS SUMMARY | 2025-11-04 11:27 | XMS_ITS | Encounter Summary ---
Author Organization [employer] ([place], [place], [place], [place], [place]) Address [address] [place] [address] Care Team Providers Care Textile Machinery Sales Representative Name Role Phone Unavailable Primary Care Provider Unavailabl e Encounter Details Date Type Department Care Team (Late st Contact Info) Description 11/25/2020 Transcribed Document [facility] [place] [address] [place] [address] ProviderLeón MD [address] [place] [address] Social History Tobacco Use Types [...] - León ProviderMD - 11/25/2020 4:27 PM MANUFACTURING DESIGN ENGINEER ED Discharge Entered On: 11/25/2020 16:27 EST Performed On: 11/25/2020 16:27 EST by MABER HANSEN Rn Discharge Process Patient Disposition : [...] 11/25/2020 16:27 EST Electronically signed by Jimena [facility] Conversion Wad Impregnator Cerner at 02/19/2023 9:39 AM CDT documented in this encounter Plan of Treatment Not on file documented as of this encounter Visit Diagnoses Not on filedocumented in this encounter
--- OUTSIDE RECORDS SUMMARY | 2025-11-04 11:27 | XMS_ITS | Encounter Summary ---
Author Organization [employer] ([place], [place], [place], [place], [place]) Address [address] [place] [address] Care Team Providers Care Corporate Tutor Name Role Phone Unavailable Primary Care Provider Unavailabl e Encounter Details Date Type Department Care Team (Late st Contact Info) Description 11/25/2020 Transcribed Document [facility] Radiology [address] [place] [address] Virgie Armendariz MD [facility] Dept of Emergency Medicine [place], [place] [id number] Social History Tobacco Use Types Packs/Day Years [...] at maximum was 10 /10. , just PORTFOLIO ARCHITECT . The degree at present is [...] EST Height Source Stated Height Entry Format [place] Height/Length, YORUBA (ft) 5 ft Height/Length YORUBA 5 Inch CLINICALHEIGHT 165.1 cm [place] Body Weight 56.59 kg Weight Source, ED Critical estimated dosing weight Weight Entry Format [place] Weight Hungarian lb 220 lb CLINICALWEIGHT 100 kg Body [...] % 26.1 % Lymph # 2.37 x10(3)/uL [place] % 6.1 % [place] # 0.55 K/uL Eos % 1.3 % Eos # 0.12 x10(3)/uL Baso % 0.3 % Baso # 0.03 x10(3)/uL Slide Review No IG# 0.03 x10(3)/uL IG% 0.30 % . Radiology results: Radiology Results (Last 48 hours) [id number] -- 11/25/2020 10:52 CT Head WO (11/25/2020 [...] instructions. Notes: I certify that the Physician Physician/Internist performed the services as delegated. I agree with the assessment, treatment plan and disposition of the patient as recorded by the Physician Physician/Internist. This document was created with Penemarie K Murphy dictation software and unidentified e commerce manager errors may be present.. . documented in this encounter Plan of Treatment Not on file documented as of this encounter Visit Diagnoses Not on filedocumented in this encounter
--- OUTSIDE RECORDS SUMMARY | 2025-11-04 11:27 | XMS_ITS | Encounter Summary ---
Author Organization [employer] ([place], [place], [place], [place], [place]) Address [address] [place] [address] Care Team Providers Care Waiter/Waitress Take Out Name Role Phone Unavailable Primary Care Provider Unavailabl e Encounter Details Date Type Department Care Team (Late st Contact Info) Description 11/25/2020 Transcribed Document [facility] [place] Medicine [address] [place] [address] ProviderLeón MD [address] [place] [address] Social History Tobacco Use Types [...] - León ProviderMD - 11/25/2020 10:52 AM STRAIGHT CUTTER MACHINE ED Triage Entered On: 11/25/2020 11:06 EST [...] : 3 - Urgent Tracking Group : [facility] ED ALBERTO CHAVES RN - 11/25/2020 [...] 11/25/2020 11:06:17 EST) Problems(Active) Asthma (SNOMED CT :972298409 ) Name of Problem: Asthma ; Recorder: RAJNI RAMIREZ RN; Confirmation: Confirmed ; Classification: Medical ; Code: 904845382 ; Contributor System: PowerChart ; Last Updated: 09/01/2018 18:05 EDT ; Life Cycle Date: 09/01/2018 ; Life Cycle Status: Active ; Vocabulary: SNOMED CT Hypothyroid (SNOMED CT :67331980 ) Name of Problem: Hypothyroid ; Recorder: RAJNI RAMIREZ RN; Confirmation: Confirmed ; Classification: Medical ; Code: 39174976 ; Contributor System: PowerChart ; Last Updated: 09/01/2018 18:05 EDT ; Life Cycle Date: 09/01/2018 ; Life Cycle Status: Active ; Vocabulary: SNOMED CT PCOS (polycystic ovarian syndrome) (SNOMED CT :687207735 ) Name of Problem: PCOS (polycystic ovarian syndrome) ; Recorder: RAJNI RAMIREZ RN; Confirmation: Confirmed ; Classification: Medical ; Code: 259522561 ; Contributor System: Corpora ; Last Updated: 09/01/2018 18:05 EDT ; Life Cycle Date: 09/01/2018 ; Life Cycle Status: Active ; Vocabulary: SNOMED CT Diagnoses(Active) Headache Date: 11/25/2020 ; Diagnosis Type: Reason For Visit ; Confirmation: Complaint of ; Clinical Dx: Headache ; Classification: Medical ; Clinical Service: Emergency medicine ; Code: PNED ; Probability: 0 ; Diagnosis Code: [id number] ED Height and Weight Height Source : Stated Height Entry Format : [place] Height, Feet : 5 ft(Converted to: 152 cm, 60 Inch) Height, Inches : 5 Inch(Converted to: 0 ft 5 Inch, 12.70 cm) Clinical Height : 165.1 cm Weight Source, ED : Critical estimated dosing weight Weight Entry Format : [place] Weight, Pounds : 220 lb Clinical Dosing Weight : 100 kg Body Surface Area (BSA) : 2.06 m2 Body Mass Index : 36.7 kg/m2 (HI) [place] Body Weight (IBW) : 56.59 kg ALBERTO [...]
--- OUTSIDE RECORDS SUMMARY | 2025-11-04 11:27 | XMS_ITS | Encounter Summary ---
Author Organization [employer] ([place], [place], [place], [place], [place]) Address [address] [place] [address] Care Team Providers Care Agricultural Sciences Professor Name Role Phone Unavailable Primary Care Provider Unavailabl e Encounter Details Date Type Department Care Team (Late st Contact Info) Description 11/25/2020 Transcribed Document [facility] [place] Family Medicine [address] [place] [address] ProviderLeón MD [address] [place] [address] Social History Tobacco Use Types [...] - Historical ProviderMD - 11/25/2020 10:52 AM SOFTWARE IMPLEMENTATION PROJECT MANAGER [place] Suicide Severity Rating Scale (C-SSRS) Entered On: 11/25/2020 14:40 EST Performed On: 11/25/2020 14:40 EST by LALI SEAY RN [place] Suicide Severity Rating Scale (C-SSRS) CSSRS Past [...]
--- OUTSIDE RECORDS SUMMARY | 2025-11-04 11:27 | XMS_ITS | Encounter Summary ---
Author Organization [facility] Address [address] [place] [address] Care Team Providers Care Senior Market Intelligence Consultant Name Role Phone Pcp, No Primary Care Provider Nadia Todd MD Primary Care Provider [phone] Pcp, No Primary Care Provider Nadia Todd MD Primary Care Provider [phone] Encounter Details Date Type Department Care Team (Late st Contact Info) Description 11/05/2019 [facility] Historical OTTR [address] [place] [address] Marla Sin, [id number] [address] [place] [address] Social History Tobacco Use Types Packs/Day Years [...] 2014, renal stones x1, anxiety/depression SX: ACL 2017, choley, ovarian cyst removal 2013, tonsilectomy FM HX: DM, HTN, renal disease, N/A , , 1 children BMI: 39 documented in this encounter Plan of Treatment Upcoming Encounters Date Type Department Care Team (Late st Contact Info) Description 02/09/2026 8:45 AM EDT Office Visit Obstetrics & Gynecology [address] [place] [address] Tres Ybarra MD [address] [place] [address] documented as of this encounter Visit Diagnoses Not on filedocumented in this encounter Care Teams Senior Market Intelligence Consultant Relationship Specialty Start Date End Date Pcp, No [address] [place] [address] PCP - General 08/07/21 08/08/21 [place] [address] PCP - General 08/09/21 08/09/21 Pcp, No [address] [place] [address] PCP - General Family Medicine 07/08/22 01/16/23 [place] [address] PCP - General 01/17/23 documented as of this encounter
--- OUTSIDE RECORDS SUMMARY | 2025-11-04 11:27 | XMS_ITS | Clinical Summary ---
Author Organization [facility] Address [address] [place] [address] Care Team Providers Care Frozen Meat Cutter Name Role Phone Nadia Drummond MD Primary Care Provider [phone] Allergies Active Allergy Reactions Criticality Noted Date [...] Caitlin Obesity Mother Caitlin Obesity Paternal Grandmother [place] Relation Name Status Comments Brother Alive Father Anam Alive Maternal Grandfather Aren Maternal Grandmother Yvette Mother Caitlin Alive Paternal Grandfather Paternal Grandmother [place] Social History Tobacco Use Types Packs/Day Years [...] 07/28/2025 11:22 AM EDT Plan of Treatment Health Maintenance Due Date [...] 12:2 1 PM EDT 02/15/2022 Narrative [facility] ([facility]) - 02/16/2022 3:08 PM EDT Performed at: 01 - [facility] [address] [place], [place] [id number] Industrial Sweeper Cleaner: Guillermo Choi PhD, Phone: [phone] Patient Fasting: N us Charla Vegas PA-C LAB BLOOD ORDERABLES Final Result [facility] ([facility]BULAT[facility]) [address] [place] [address], [place] [phone] [facility] [address] [place] [address], [place] [phone] from Last 3 Months or Most Recently Relevant to Health Maintenance Insurance PPO Member Subscriber Plan / Payer (Ef fective 2023-Present) Name:Pam Phillips Relation to Subscriber:Spouse Name:[id number] Date of :1993 (Home) Address: [facility] [address] [address] Payer ID:[id number] (NAIC) Type:Not on file Address: [facility] [address] [place] [id number] Care Teams Frozen Meat Cutter Relationship Specialty Start Date End Date Nadia Drummond MD PCP - General Family Medicine 07/15/20
--- OUTSIDE RECORDS SUMMARY | 2025-11-04 11:27 | XMS_ITS | Encounter Summary ---
Author Organization [employer] ([place], [place], [place], [place], [place]) Address [address] [place] [address] Care Team Providers Care Color Dipper Name Role Phone Unavailable Primary Care Provider Unavailabl e Encounter Details Date Type Department Care Team (Late st Contact Info) Description 11/25/2020 Transcribed Document [facility] [place] Family Medicine [facility] [place] [address] ProviderLeón MD [address] [place] [address] Social History Tobacco Use Types [...] - Historical ProviderMD - 11/25/2020 3:34 PM SURGICAL PATHOLOGIST Electronically signed by Jimena [facility] Conversion Clock And Watch Hands Mounter Cerner at 02/19/2023 9:52 AM CDT documented in this encounter Plan of Treatment Not on file documented as of this encounter Visit Diagnoses Not on filedocumented in this encounter
--- OUTSIDE RECORDS SUMMARY | 2025-11-04 11:27 | XMS_ITS | Encounter Summary ---
Author Organization [employer] ([place], [place], [place], [place], [place]) Address [address] [place] [address] Care Team Providers Care Clinical Project Leader Name Role Phone Unavailable Primary Care Provider Unavailabl e Encounter Details Date Type Department Care Team (Late st Contact Info) Description 11/25/2020 Transcribed Document [facility] [place] [address] [place] [address] ProviderLeón MD [address] [place] [address] Social History Tobacco Use Types [...] León Joseph MD - 11/25/2020 4:12 PM CLERK SECRETARY [facility] [place] [address] PAM FENG :1995 Visit Time:11/25/2020 Your [...] instructions at home: Managing pain ??? Take uspa-uvd-ofoltqy and prescription medicines only as told by [...] Reviewed: 02/02/2018 Elsevier Patient Education ?? 2020 [employer]. Emergency Awareness and Preventative Care STROKE is [...] Assistance with quitting is available by contacting 2-658-VKZF-NOW. This is a free resource providing counseling, [...] was given the opportunity to ask questions. Patient/Pilot Plant Operator Name: Patient/Pilot Plant Operator Signature: Relationship to Patient: Clinician/Hospital Pilot Plant Operator Signature: Please Provide a Telephone Number Where You Can Be Reached: Is it Permissible To Leave a Message? Date: documented in this encounter Plan of Treatment Not on file documented as of this encounter Visit Diagnoses Not on filedocumented in this encounter
--- OUTSIDE RECORDS SUMMARY | 2025-11-04 11:27 | XMS_ITS | Clinical Summary ---
Author Organization [facility] Address [address] [place] [address] Care Team Providers Care Executive Cyber Leader Name Role Phone Nadia Goodson MD Primary Care Provider [phone] Allergies Active Allergy Reactions Criticality Noted Date [...] Recorded Patient Health Questionnaire-2 Score 0 04/08/2025 [place] Depression Scale Answer Date Recorded [place] Depression Scale Total 0 02/23/2024 The thought [...] Visit Obstetrics & Gynecology [address] [place] [address] Tres Ybarra MD [address] [place] [address] Health Maintenance Due Date Last Done Comments [facility]-Infant/Child/Adol SDOH Screenings 1993 [facility]- SDOH Screenings 2011 [facility]-Adult SDOH Screenings 2011 [facility]-Hepatitis B Vaccines (1 of 3 - 19+ 3-dose series) 2012 [facility]-Varicella Vaccines (2 of 2 - 13+ 2-dose series) 05/27/2015 04/29/2015 [facility]-[id number]-52 Vaccine (3 - Moderna risk series) 01/06/2021 [...] Pap, Source Cx/Vagina 02/13/2025 12:50 PM EDT [facility] EER Referred ThinPrep Pap and HPV See Note 02/13/2025 12:50 PM EDT [facility] PAP, THINPREP Normal 02/13/2025 12:50 PM EDT [facility] High Risk HPV Normal 02/13/2025 12:50 PM EDT [facility] Swab Vaginal and cervical cytologic material / Unknown Non-blood Collection / Unknown 02/06/2025 8:23 AM EDT 02/06/2025 12:54 PM EDT Narrative [facility] - 02/13/2025 12:50 PM EDT Authorized individuals can access the [employer] Enhanced Report with an [employer] Connect account using the following link. Your local lab can assist you in obtaining the patient report if you don't have a Connect account. [email or web address] Performed By: [facility] [address] [place] [id number] Retirement Administrator: Thompson Correa MD, PhD CLIA Number: [id number] SPECIMEN PART A. Cervical, Endocervical, Vaginal, ThinPrep Pap (Manager Auto) CYTOLOGY HX Date of Last Menstrual Period: N FINAL DIAGNOSIS INTERPRETATION: Negative for Intraepithelial Lesion or Malignancy. SPECIMEN ADEQUACY:Satisfactory for evaluation. Endocervical/transformation zone component present. Electronically Signed Out : [email or web address] Performed by: [facility] [address] [place] [address] [place] [address] Desire Alvarez MD, HR-HPV: Negative Test performed by the FDA-approved [place] [employer] (Gen-Probe) APTIMA HPV test, which detects HPV genotypes: 16, 18, 31, 33, 35, 39, 45, 51, 52, 56, 58, 59, 66, and 68. This assay has been cleared for the specimen types listed below. Other specimen types have not been validated for this assay. -Clinician-collected ThinPrep Pap specimens. Performed by: [facility] [address] [place] [address] [place] [address] Desire Alvarez MD, Tres Ybarra MD LAB REF LAB BLOOD AND FLUID ORD Final Result [facility] [address] [place] [address] * HIV 1 & 2 Antibody/Antigen Screen (05/29/2023 10:20 AM EDT) HIV 1 & 2 Antibody/Antigen Screen Non Reactive Non Reactive 05/29/2023 2:06 PM EDT [facility] Comment:Screening for HIV 1 & 2 antibodies, and P24 antigen is NONREACTIVE. No confirmatory testing is required. Blood Venous blood specimen / Unknown Venipuncture / Unknown 05/29/2023 10:20 AM EDT 05/29/2023 1:01 PM EDT Result Mary Ybarra MD LAB BLOOD ORDERABLES Final Resu lt Performing Organization Address City/[facility]/ZIP Co de Phone Number [facility] [address] [place] [address] * Hepatitis C Antibody (05/29/2023 10:20 AM EDT) Hepatitis C Antibody Negative Negative 05/29/2023 2:02 PM EDT [facility] Blood Venous blood specimen / Unknown Venipuncture / Unknown 05/29/2023 10:20 AM EDT 05/29/2023 1:01 PM EDT Result Mary Ybarra MD LAB BLOOD ORDERABLES Final Resu lt Performing Organization Address City/[facility] Co de Phone Number [facility] [address] [place] [address] from Last 3 Months or Most Recently Relevant to Health Maintenance Insurance [facility] Advance Directives * Full Code (Latest Code Status on File) Date Activated Date Inactivated Comments 08/09/2021 8:28 PM 08/10/2021 1:42 PM Question Answer Comments Patient has decision-making capacity? Yes * Full Code Date Activated Date Inactivated Comments 08/08/2021 3:47 AM 08/09/2021 12:51 AM Question Answer Comments Patient has decision-making capacity? Yes Care Teams Executive Cyber Leader Relationship Specialty Start Date End Date Nadia Goodson MD [phone] PCP - General 01/17/23
--- OUTSIDE RECORDS SUMMARY | 2025-11-04 11:27 | XMS_ITS | Encounter Summary ---
Author Organization [employer] ([place], [place], [place], [place], [place]) Address [address] [place] [address] Care Team Providers Care Collector Of Aquarium Specimens Name Role Phone Unavailable Primary Care Provider Unavailabl e Encounter Details Date Type Department Care Team (Late st Contact Info) Description 11/25/2020 Transcribed Document [facility] [place] [address] [place] [address] ProviderLeón MD [address] [place] [address] Social History Tobacco Use Types [...] - León ProviderMD - 11/25/2020 10:52 AM COMPLAINT ANALYST ED Assessment Entered On: 11/25/2020 14:03 EST Performed On: 11/25/2020 14:01 EST by LALI SEAY RN ED Quick Look Assessment Level of Consciousness : Alert, Awake Affect/Behavior : Appropriate, Calm, Cooperative Orientation : Oriented x 4 Skin Temperature : Warm Skin Description : Dry, [place] LALI SEAY RN - 11/25/2020 14:01 EST ED General-Functional Assess Information Obtained From : Patient Preferred Communication Mode : Verbal Communication Barrier : None Primary Language : Armenian Any Spiritual/Cultural Needs or Requests : No [...] commands Canelo Best Verbal Response : Oriented [place] Eye Opening Response : Spontaneous [place] Coma Score : 15 LALI ESAY RN - 11/25/2020 14:01 EST Electronically signed by Jimena [facility] Conversion Catalog Specialist Cerner at 02/19/2023 10:00 AM CDT documented in this encounter Plan of Treatment Not on file documented as of this encounter Visit Diagnoses Not on filedocumented in this encounter
--- OUTSIDE RECORDS SUMMARY | 2025-11-04 11:27 | XMS_ITS | Encounter Summary ---
Author Organization [employer] ([place], [place], [place], [place], [place]) Address [address] [place] [address] Care Team Providers Care Developmental Education Instructor Name Role Phone Unavailable Primary Care Provider Unavailabl e Encounter Details Date Type Department Care Team (Late st Contact Info) Description 09/24/2019 Transcribed Document [facility] [place] [address] [place] [address] ProviderLeón MD [address] [place] [address] Social History Tobacco Use Types [...] - Historical ProviderMD - 09/24/2019 7:56 AM PERSONNEL PSYCHOLOGIST Vital Signs ED Entered On: 09/24/2019 8:38 [...]
--- OUTSIDE RECORDS SUMMARY | 2025-11-04 11:27 | XMS_ITS | Encounter Summary ---
Author Organization [employer] ([place], [place], [place], [place], [place]) Address [address] [place] [address] Care Team Providers Care Director Meetings Name Role Phone Unavailable Primary Care Provider Unavailabl e Encounter Details Date Type Department Care Team (Late st Contact Info) Description 09/24/2019 Transcribed Document [facility] [place] [address] [place] [address] ProviderLeón MD [address] [place] [address] Social History Tobacco Use Types [...] León Joseph MD - 09/24/2019 10:05 [place] [address] PAM FENG :1995 Visit Time:09/24/2019 Your Visit [...] fever and or persistent vomiting. Where: [address] [facility] [address] [place] [address]- Business (1) Allergies amoxicillin (C/O - vomiting) [...] range between ( 1.0 and 7.0 ) [place] #: 0.60 K/uL -- Normal range between ( 0.24 and 0.82 ) [place] #: 0.32 K/uL -- Normal range between ( 0.04 and 0.54 ) [place] %: 7.9 % -- Normal range between [...] ) Urine Bilirubin Dipstick: Negative Urine Specific [place]: 1.007 -- Normal range between ( 1.005 [...] 10/23/2006 Document Revised: 11/24/2017 Document Reviewed: 11/24/2017 [employer] Patient Education ?? 2019 [email or web address]. Emergency Awareness and Preventative Care STROKE is [...] Assistance with quitting is available by contacting 5-918-OANM-NOW. This is a free resource providing counseling, [...] was given the opportunity to ask questions. Patient/Hospice Nurse Name: Patient/Hospice Nurse Signature: Relationship to Patient: Clinician/Hospital Hospice Nurse Signature: Please Provide a Telephone Number Where You Can Be Reached: Is it Permissible To Leave a Message? Date: documented in this encounter Plan of Treatment Not on file documented as of this encounter Visit Diagnoses Not on filedocumented in this encounter
[2025-11-04 11:30] VITALS: BP 100/60; PULSE 103; RESP 17; TEMP 36.9; O2SAT 100; BMI 26.8
[2025-11-04 11:33] LABS: Microscopic, Urine URINE MICROSCOPIC (MICROSCOPIC)
[2025-11-04 11:36] LABS: Bilirubin,Urine Negative (Negative); Color,Urine YELLOW (Yellow); Glucose,Urine (UA) Negative (Negative); Ketones,Urine Negative (Negative); Leukocyte Esterase,Urine Negative (Negative); PH,Urine 8.5 (5.0-8.5); Protein,Urine Negative (Negative); Specific Gravity, Urine 1.020 (1.005-1.030); Urobilinogen,Urine 0.2 EU/dl (0.2)
[2025-11-04 12:07] LABS: Bacteria,Urine 1+ /lpf
[2025-11-04] MEDS: MVI, ADULT NO.1 WITH VIT K 10 ML, THIAMINE HCL 100 MG, MAGNESIUM SULFATE 2 GM in LACTAT... 125 ML IV (12:07)
[2025-11-04 12:19] LABS: Hematocrit 34.7 % (37.0-47.0); Hemoglobin 11.1 g/dL (12.2-16.2); Immature Granulocytes % 0.4 %; Mean Corpuscular HGB Conc 32.0 g/dL (31.8-35.4); Mean Corpuscular Hemoglobin 25.5 pg (27.0-31.2); Mean Corpuscular Volume 79.8 fl (81-99); Nucleated Red Blood Cells % 0 %; Platelet Count 174 K/mm3 (142-424); Red Blood Count 4.35 M/mm3 (4.20-5.40); Red Cell Distribution Width-SD 60.7 fL; White Blood Count 7.8 K/mm3 (4.8-10.8)
[2025-11-04 12:25] LABS: Chloride 105 mmol/L (98-107)
[2025-11-04 12:26] LABS: Albumin Level 3.9 g/dl (3.5-5.0); Potassium 4.0 mmoL/L (3.5-5.1); Sodium 134 mmol/L (136-145)
[2025-11-04 12:28] LABS: Blood Urea Nitrogen 7 mg/dl (7-17); Creatinine Clearance Estimated 155 mL/min (50-200); Creatinine,Serum 0.60 mg/dl (0.52-1.04); Estimated Glomerular Filt Rate 116 ml/min (>60); GFR (African American) 140 ML/MIN (>60)
[2025-11-04 12:29] LABS: Alanine Aminotransferase 11 U/L (12-78); Albumin/Globulin Ratio 1.6 (1.1-1.8); Alkaline Phosphatase 60 U/L (38-126); Anion Gap 10.0 mEq/L (5-15); Aspartate Amino Transferase 19 U/L (14-36); Bilirubin,Total 0.3 mg/dl (0.2-1.3); Calcium 8.8 mg/dl (8.4-10.2); Carbon Dioxide 23 mmol/L (22.0-30.0); Globulin 2.4 g/dL (1.3-3.2); Glucose 86 mg/dl (74-100); Total Protein,Serum 6.3 g/dl (6.3-8.2)
== END 2025-11-04 14:27 | disposition home or self-care (01) ==
LOC: OBOUT 11:11 → OB 11:15
PROVIDERS: PCP Family Medicine; Visit Provider Obstetrics & Gynecology
DX: O21.0 Mild hyperemesis gravidarum (principal); O99.891 Other specified diseases and conditions complicating pregnancy; R42 Dizziness and giddiness; Z3A.22 22 weeks gestation of pregnancy
CPT/HCPCS: 80053; 81001; 85025; 99213; J3411; J3475; J7120